=== PATIENT | female | born 1955 | race Caucasian/White ===

== ENCOUNTER 2019-05-24 09:57 | Emergency (ER) | payer OTHER ==
--- OUTSIDE RECORDS SUMMARY | 2019-05-24 10:04 | XMS REPORT ---
:1955 [facility] Address [address] [place] [address] Care Team Providers Name Role Phone VELIA ROBB Unavailable Unavailable JOE JOSHI Unavailable Unavailable BECKY LU Unavailable Unavailable DENNIS MOLINA Unavailable Unavailable FAM MEADOWS Unavailable Unavailable Problems This patient has no known problems. Allergies, Adverse Reactions, Alerts This patient has no known allergies or adverse reactions. Medications This patient has no known medications. Results Test Description Test Time Test Comments Text Results Atomic Results Result Comments CT, 2019-04-15 Referring: Dr. Najma Amos be FINAL REPORT PATIENT ID: ABDOMEN, 19:39:00 performed at [facility] [id number] TECHNIQUE: CT of [facility] in CT the abdomen WITHOUT CONTRAST department.Anesthesia:->NonePlease intravenous contrast and specify abdominal organs:->Liver WITHOUT oral contrast. Dose modulation, iterative reconstruction, and/or weight-based adjustment of the mA/kV was utilized to reduce the radiation dose to as low as reasonably achievable. INDICATION: Liver mets, presurgical assessment. COMPARISON: MRI from 02/11/2019. FINDINGS: ABSENCE OF INTRAVENOUS CONTRAST DECREASES SENSITIVITY FOR DETECTION OF FOCAL LESIONS AND VASCULAR PATHOLOGY. LOWER THORAX: Unremarkable. HEPATOBILIARY: Nodular, cirrhotic liver. The liver masses were better evaluated on the prior MRI. When of the exophytic lesions in segment III measures 1.1 cm and may have mildly increased in size. A calcification in segment VIII measures 0.2 cm and is most likely a calcified granuloma. Multiple gallstones layering the gallbladder. No gallbladder distention or wall thickening.SPLEEN: 16.2 cm splenomegaly.PANCREAS: No focal masses or ductal dilatation. ADRENALS: No adrenal nodules.KIDNEYS/URETERS: No hydronephrosis or exophytic masses. Contrast in the renal collecting system. PERITONEUM/RETROPERITONEUM: No free air or fluid.LYMPH NODES: No lymphadenopathy. The prominent upper abdominal lymph nodes are nonspecific but likely reactive. A difficult to assess without intravenous contrast.VESSELS: Mild aortic calcification. GI TRACT: No distention or wall thickening. The appendix is normal. BONES AND SOFT TISSUES: Moderate degenerative disc changes at L5-S1. IMPRESSION: 1.The previously seen arterially enhancing liver lesions were better evaluated on the prior MRI. 2.Cirrhosis with moderate splenomegaly. 3.Cholelithiasis without acute cholecystitis. Signed: Trever Rivers MDReport Verified Date/Time: 04/15/2019 19:39:35 Reading Location: [facility] C013Y CT Body Reading Room [facility] 2019-04-15 Referring: Dr. Najma Dominguez FINAL REPORT PATIENT ID: EMBOLIZATI 16:59:00 TACEReason for [id number] Procedure: ON, Exam:->HCC,hcv,cirrhosis Transarterial EXTENSIVE chemoembolization of the - ARTERIAL liver. History: Liver cirrhosis, hepatitis C, hepatocellular carcinoma, multifocal, status post treatment the right lobe of the liver on August 30, 2018. Follow-up MRI on 02/11/2019 was discussed in the tumor board and showed active disease in the segment three and four of the liver. A TACE was recommended. 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 Bean Sorter: Alex Dickerson Modality: Sonography and fluoroscopy. DOSE REDUCTION: The examination was performed according to departmental dose-optimization program. Fluoro time: 23 minutes Radiation dose: 501.4 mGy Kerma-area. Number of images: 89 Sedation: Versed one mg and Fentanyl 100 mcg was given intravenously for conscious sedation. Vital signs were monitored throughout the procedure by a dedicated RN under direct supervision of Dr. Radford, and remained stable. Physician intra-service sedation time was 83 minutes. Anesthesia: Lidocaine local infiltration. Medicines: Ancef 1 g IV, Flagyl 500 mg IV, Zofran 8 mg IV Contrast medium: Isovue 300, 100 cc. Estimated blood loss: < 5 cc. Technique: A discussion of the risks, benefits, and alternatives was carried out with the patient. A written informed consent was obtained. The patient expressed understanding and agreed to proceed. A universal timeout was performed prior to starting the procedure. The procedure room personnel used personal protective equipment. The operators used sterile gowns and gloves. The patient was laid supine on the procedure table. The surgical site was prepped with chlorhexidine gluconate and draped in the standard sterile fashion. The right common femoral artery was localized using anatomic and ultrasonographic landmarks. The artery is patent. Pertinent ultrasound images were stored for documentation in the PACS. Using aseptic precautions, real-time ultrasonographic guidance, after local anesthesia and dermatotomy, the artery was accessed with a micropuncture device. Eventually a guide wire was placed using standard exchanges. Over the wire a 5 Malaysian vascular sheath was placed. The sheath was connected to a heparinized saline drip. Over the wire, a 5 Malaysian reverse curve catheter was placed. This was followed by selective catheterization of the following arteries: Superior mesenteric artery, celiac artery. This was followed by superselective catheterization of the following arteries: The middle hepatic artery, the left hepatic artery. The equipment used for selective catheterization was Sos two catheter and Bentson wire. The equipment used for superselective catheterization was Pro great catheter, fathom wire, Transend wire, Direxion catheter. At each catheterization and superselective catheterization, following test injection, a digital subtraction angiography run was performed. This was followed by superselective embolization of the left hepatic artery. The agent used for embolization was Oncozene 100 um diameter, 2 cc, loaded with doxorubicin 100 mg. The endpoint of embolization was near stasis. Approximately 100 % of the target dose was administered (100 mg of doxorubicin). At the end of the procedure the chemotherapy contaminated equipment was discarded using the standard institutional protocol. The access site was closed using Angio-Seal. The patient was then transferred to the post procedure area for recovery. The patient was discharged home in stable condition after at least four hours of observation Complications: None immediate. Findings:No accessory or replaced right hepatic artery from the superior mesenteric artery. Celiac artery has conventional anatomy. There is main portal vein that is patent with hepatopedal flow. There is no supply to the tumor from the middle hepatic artery. There is supply to the tumors from the left hepatic artery. The segmental arteries are tiny. The segment two is small. Therefore it was decided to perform lobar embolization of the left lobe of the liver from the left hepatic artery branch point. The endpoint was tumor devascularization with persistent forward flow in the segmental arteries. Impression: Successful transarterial chemoembolization of two tumors in left lobe of the liver. The agent used for chemoembolization is mentioned above. The administered dose is mentioned above. The endpoint is mentioned above. The patient was discharged home in stable condition. Follow-up imaging in 4-6 weeks as per the referring doctor. Thank you for the opportunity to assist in the care of your patient. Signed: Randy Radfordeport Verified Date/Time: 04/15/2019 16:59:24 Reading Location: [facility] P048 Angio Body Reading Room REHENSIVE METABOLIC PANEL 2019-04-15 09:22:00 Test Item Value Reference Range Comments TOTAL PROTEIN (BEAKER) (test 6.9 gm/dL 6.0-8.3 pnga=630) ALBUMIN (BEAKER) (test 3.7 g/dL 3.5-5.0 eggw=0972) ALKALINE PHOSPHATASE 97 U/L 40-150 (BEAKER) (test xxpv=770) BILIRUBIN TOTAL (BEAKER) 1.0 mg/dL 0.2-1.2 (test tsor=916) SODIUM (BEAKER) (test 136 meq/L 136-145 mufx=149) POTASSIUM (BEAKER) (test 3.8 meq/L 3.5-5.1 lphm=535) CHLORIDE (BEAKER) (test 105 meq/L 98-107 itdb=138) CO2 (BEAKER) (test dbsf=934) 23 meq/L 22-29 BLOOD UREA NITROGEN (BEAKER) 23 mg/dL 7-21 (test nszt=241) CREATININE (BEAKER) (test 0.94 mg/dL 0.57-1.25 dvbv=997) GLUCOSE RANDOM (BEAKER) 153 mg/dL 70-105 (test zfub=757) CALCIUM (BEAKER) (test 9.2 mg/dL 8.4-10.2 iwwx=996) AST (SGOT) (BEAKER) (test 20 U/L 5-34 ogsg=501) ALT (SGPT) (BEAKER) (test 16 U/L 6-55 awlp=770) EGFR (BEAKER) (test 60 mL/min/1.73 sq m ESTIMATED GFR IS NOT pwgj=4702) ACCURATE CREATININE CLEARANCE IN PREDICTING GLOMERULAR FILTRATION RATE. ESTIMATED GFR IS NOT APPLICABLE FOR DIALYSIS PATIENTS. Improvement Intern ID - AAMIR [id number] 09:06:00 Test Item Value Reference Range Comments PARTIAL THROMBOPLASTIN TIME (BEAKER) (test 31.1 seconds 22.5-36.0 tiqk=871) PROTHROMBIN [id number] 09:04:00 Test Item Value Reference Range Comments PROTIME (BEAKER) (test lloh=577) 14.8 seconds 11.9-14.2 INR (BEAKER) (test nenl=918) 1.2 <=5.9 Effective 08/04/2018: PT Reference Range ChangeNew: 11.9-14.2 Previous: 11.7- 14.7RECOMMENDED COUMADIN/WARFARIN INR THERAPY RANGESSTANDARD DOSE: 2.0-3.0 Includes: PROPHYLAXIS for venous thrombosis, systemic embolization; TREATMENT for venous thrombosis and/or pulmonary embolus.HIGH RISK: Target INR is2.5-3.5 for patients wiht mechanical heart valves.CBC W/PLT COUNT & AUTO [id number] 08:54:00 Test Item Value Reference Range Comments WHITE BLOOD CELL COUNT (BEAKER) (test qpan=902) 3.3 K/ L 3.5-10.5 RED BLOOD CELL COUNT (BEAKER) (test pdbp=056) 4.34 M/ L 3.93-5.22 HEMOGLOBIN (BEAKER) (test ddag=920) 11.0 GM/DL 11.2-15.7 HEMATOCRIT (BEAKER) (test vcwc=591) 34.5 % 34.1-44.9 MEAN CORPUSCULAR VOLUME (BEAKER) (test uuqp=388) 79.5 fL 79.4-94.8 MEAN CORPUSCULAR HEMOGLOBIN (BEAKER) (test 25.3 pg 25.6-32.2 ctby=642) MEAN CORPUSCULAR HEMOGLOBIN CONC (BEAKER) (test 31.9 GM/DL 32.2-35.5 gmns=233) RED CELL DISTRIBUTION WIDTH (BEAKER) (test 16.4 % 11.7-14.4 uyqu=445) PLATELET COUNT (BEAKER) (test ehvl=505) 81 K/CU MM 150-450 MEAN PLATELET VOLUME (BEAKER) (test qljd=981) 9.4 fL 9.4-12.3 NUCLEATED RED BLOOD CELLS (BEAKER) (test 0 /100 WBC 0-0 vfoc=995) NEUTROPHILS RELATIVE PERCENT (BEAKER) (test 75 % fotd=584) LYMPHOCYTES RELATIVE PERCENT (BEAKER) (test 16 % lnxa=074) MONOCYTES RELATIVE PERCENT (BEAKER) (test 8 % hcar=437) EOSINOPHILS RELATIVE PERCENT (BEAKER) (test 1 % anlq=052) BASOPHILS RELATIVE PERCENT (BEAKER) (test 0 % kopu=323) NEUTROPHILS ABSOLUTE COUNT (BEAKER) (test 2.44 K/ L 1.56-6.13 csrt=757) LYMPHOCYTES ABSOLUTE COUNT (BEAKER) (test 0.52 K/ L 1.18-3.74 ktow=958) MONOCYTES ABSOLUTE COUNT (BEAKER) (test oeat=332) 0.27 K/ L 0.24-0.36 EOSINOPHILS ABSOLUTE COUNT (BEAKER) (test 0.02 K/ L 0.04-0.36 hopz=473) BASOPHILS ABSOLUTE COUNT (BEAKER) (test ryki=491) 0.01 K/ L 0.01-0.08 IMMATURE GRANULOCYTES-RELATIVE PERCENT (BEAKER) 0 % 0-1 (test rcar=1909) CT, CHEST, WITHOUT [id number] 15:05:00Referring: Dr. Najma Underwood REPORT TECHNIQUE: CT of the chest WITHOUT intravenous contrast. Dose modulation, iterative reconstruction, and/or weight-based adjustment of the mA/kV was utilized to reduce the radiation dose to as low as reasonably achievable. INDICATION: 63-year-old woman with hepatocellular carcinoma. COMPARISON: Chest CT 11/05/2018. FINDINGS: ABSENCE OF INTRAVENOUS CONTRAST DECREASES SENSITIVITY FOR DETECTION OF FOCAL LESIONS AND VASCULAR PATHOLOGY. LINES/TUBES: None. LUNGS AND AIRWAYS: Central airways are patent. No consolidation or suspicious pulmonary nodule. Unchanged subpleural subcentimeter calcified granuloma in the right upper lobe. PLEURA: The pleural spaces are clear. HEART AND MEDIASTINUM: The visualized thyroid gland is normal. No significant mediastinal, hilar, or axillary lymphadenopathy. The heart and pericardium are within normal limits. SOFT TISSUES AND BONES: Degenerative changes of the visualized spine. Soft tissues are unremarkable. UPPER ABDOMEN: Cirrhosiswith splenomegaly. Cholelithiasis. Please refer to abdomen MRI report from 02/11/2019 for further details. IMPRESSION:No metastases in the chest. Signed: Lucho Case MDReport Verified Date/Time: 02/23/2019 15:05:09 Reading Location: [address] Radiology Reading Room MR, ABDOMEN, [id number] 15:59:00Referring: Dr. Najma Robledo Abdominal VesselsFINAL REPORT MRI of the abdomen, with and without contrast. History: C, cirrhosis. Comparison: 11/05/2018, 07/16/2018. Technique: Multiplanar, multisequence imaging of the abdomenwas performed pre- and post-IV administration of gadolinium. Dynamic enhanced images of the liver were included. Discussion: The liver has a nodular contour with several arterially enhancing lesions:- Segment 5 lesion, 0.7 cm, previously chemoembolized, no washout or pseudocapsule, unchanged.- Segment4 lesion, 1.8 cm, with washout and pseudocapsule, unchanged.- Segment 8 lesion, 1.2 cm, no washout or pseudocapsule , unchanged.- Segment 3 lesion, 0.9 cm, no washout or pseudocapsule, unchanged. - Segment 5 lesion, 0.8 cm, no washout or pseudocapsule, unchanged.- Segment 8 lesion, 0.7 cm, no washout orpseudocapsule, not previously seen. The hepatic, splenic, portal, and mesenteric veins are patent. The portal vein is normal in size measuring 16 mm in diameter. There is no evidence of ascites. Multiple small stones are present within the gallbladder. The spleen is enlarged measuring over 17 cm inlength. The pancreas, kidneys and adrenal glands are unremarkable. The visualized loops of bowel andosseous structures are normal. There is no evidence of adenopathy. IMPRESSION: 1. Cirrhotic liverwith stable segment 5 previously treated HCC and stable segment 4 HCC. Additional lesions as described above.2. Splenomegaly and portal vein enlargement are again noted.3. Cholelithiasis. Signed: Reynold Rose MDReport Verified Date/ Time: 02/11/2019 15:59:27 Reading Location: [address] RadiologyReading Room BONE AND/OR JOINT IMAGING, WHOLE [id number] 14:35:00Referring: Dr. Najma Underwood REPORT PROCEDURE: BONE SCAN, WHOLE BODY CPT CODE: 42030 INDICATION: Hepatocellular carcinoma PROTOCOL: 21.4 mCi of Tc-99m MDP was injected intravenously. Whole body and selected spot images were obtained approximately 3 hours later. FINDINGS: Mildly increased tracer activity in the calvarium, right greater than left shoulder, cervical and lower thoracic spine, hips, knees, and feet/ankles. IMPRESSION: 1.No pattern of osteoblastic metastatic disease.2.Degenerative disease in the spine and peripheral joints.3.No significant change since prior studyon 06/02/2018. Images for comparison/correlation were MR abdomen and CT chest on 11/05/2018. Signed: Aniceto Dove MDReport Verified Date/Time: 02/11/2019 14:35:45 Reading Location: [address] Reading Room ALPHA FETOPROTEIN (AFP), TUMOR [id number] 11:40:00 Test Item Value Reference Range Comments ALPHA-FETOPROTEIN (BEAKER) (test lsox=1839) 6.8 ng/mL <10.0 HEPATIC FUNCTION [id number] 11:01:00 Test Item Value Reference Range Comments TOTAL PROTEIN (BEAKER) (test cedp=026) 7.1 gm/dL 6.0-8.3 ALBUMIN (BEAKER) (test sojm=3702) 3.7 g/dL 3.5-5.0 BILIRUBIN TOTAL (BEAKER) (test ziim=084) 0.8 mg/dL 0.2-1.2 BILIRUBIN DIRECT (BEAKER) (test jziz=652) 0.4 mg/dL 0.1-0.5 ALKALINE PHOSPHATASE (BEAKER) (test lotj=333) 126 U/L 40-150 AST (SGOT) (BEAKER) (test hrxu=613) 21 U/L 5-34 ALT (SGPT) (BEAKER) (test tfae=746) 17 U/L 6-55 BASIC METABOLIC [id number] 11:01:00 Test Item Value Reference Range Comments SODIUM (BEAKER) (test 138 meq/L 136-145 adjh=237) POTASSIUM (BEAKER) (test 4.4 meq/L 3.5-5.1 cclb=004) CHLORIDE (BEAKER) (test 102 meq/L 98-107 xjho=609) CO2 (BEAKER) (test 31 meq/L 22-29 zooj=368) BLOOD UREA NITROGEN 16 mg/dL 7-21 (BEAKER) (test petm=111) CREATININE (BEAKER) (test 0.79 mg/dL 0.57-1.25 zjye=619) GLUCOSE RANDOM (BEAKER) 149 mg/dL 70-105 (test qqcp=195) CALCIUM (BEAKER) (test 9.2 mg/dL 8.4-10.2 znzn=606) EGFR (BEAKER) (test 73 mL/min/1.73 sq m ESTIMATED GFR IS NOT dlzc=7410) ACCURATE CREATININE CLEARANCE IN PREDICTING GLOMERULAR FILTRATION RATE. ESTIMATED GFR IS NOT APPLICABLE FOR DIALYSIS PATIENTS. [id number] 10:54:00 Test Item Value Reference Range Comments POC-CREATININE (BEAKER) 0.7 mg/dL 0.6-1.3 TESTED AT [facility] [address] [facility] (test dbsu=5874) [facility] [address] POC-EGFR (BEAKER) (test 84 mL/min/1.73M2 uvmf=9886) CBC W/PLT COUNT & AUTO [id number] 10:47:00 Test Item Value Reference Range Comments WHITE BLOOD CELL COUNT (BEAKER) (test mxqr=259) 4.6 K/ L 3.5-10.5 RED BLOOD CELL COUNT (BEAKER) (test pvmf=810) 4.22 M/ L 3.93-5.22 HEMOGLOBIN (BEAKER) (test swxq=838) 10.4 GM/DL 11.2-15.7 HEMATOCRIT (BEAKER) (test vzwr=611) 34.1 % 34.1-44.9 MEAN CORPUSCULAR VOLUME (BEAKER) (test ktuf=676) 80.8 fL 79.4-94.8 MEAN CORPUSCULAR HEMOGLOBIN (BEAKER) (test 24.6 pg 25.6-32.2 elxe=142) MEAN CORPUSCULAR HEMOGLOBIN CONC (BEAKER) (test 30.5 GM/DL 32.2-35.5 qjbf=284) RED CELL DISTRIBUTION WIDTH (BEAKER) (test 15.2 % 11.7-14.4 nzln=029) PLATELET COUNT (BEAKER) (test sqww=676) 83 K/CU MM 150-450 MEAN PLATELET VOLUME (BEAKER) (test ftag=883) 10.4 fL 9.4-12.3 NUCLEATED RED BLOOD CELLS (BEAKER) (test 0 /100 WBC 0-0 fcnc=053) NEUTROPHILS RELATIVE PERCENT (BEAKER) (test 81 % qjrc=343) LYMPHOCYTES RELATIVE PERCENT (BEAKER) (test 11 % qvpf=510) MONOCYTES RELATIVE PERCENT (BEAKER) (test 7 % emeb=462) EOSINOPHILS RELATIVE PERCENT (BEAKER) (test 1 % ikth=635) BASOPHILS RELATIVE PERCENT (BEAKER) (test 0 % kzhj=744) NEUTROPHILS ABSOLUTE COUNT (BEAKER) (test 3.69 K/ L 1.56-6.13 nhfr=051) LYMPHOCYTES ABSOLUTE COUNT (BEAKER) (test 0.51 K/ L 1.18-3.74 fzou=090) MONOCYTES ABSOLUTE COUNT (BEAKER) (test ovjb=527) 0.30 K/ L 0.24-0.36 EOSINOPHILS ABSOLUTE COUNT (BEAKER) (test 0.04 K/ L 0.04-0.36 bqfb=657) BASOPHILS ABSOLUTE COUNT (BEAKER) (test efdc=058) 0.02 K/ L 0.01-0.08 IMMATURE GRANULOCYTES-RELATIVE PERCENT (BEAKER) 0 % 0-1 (test ilie=9592) PROTHROMBIN [id number] 10:42:00 Test Item Value Reference Range Comments PROTIME (BEAKER) (test inij=285) 14.1 seconds 11.9-14.2 INR (BEAKER) (test qenf=606) 1.1 <=5.9 Effective 08/04/2018: PT Reference Range ChangeNew: 11.9-14.2 Previous: 11.7- 14.7RECOMMENDED COUMADIN/WARFARIN INR THERAPY RANGESSTANDARD DOSE: 2.0-3.0 Includes: PROPHYLAXIS for venous thrombosis, systemic embolization; TREATMENT for venous thrombosis and/or pulmonary embolus.HIGH RISK: Target INR is2.5-3.5 for patients wiht mechanical heart valves.TISSUE [id number] 11:15: 00Surgical Pathology Report Case: [id number] Authorizing Provider: Joe Joshi Collected : 01/06/2019 Ruby Patel MD [facility]ingLocation: [facility] Endoscopy Received: 01/07/2019 0815 Services Pathologist: Sheila Hamilton MD Specimen: Polyp, Colon - Rectosigmoid, TAKEN BY ESD, ON FOAM, EVALUATE MARGINS A. 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 CM - NEGATIVE FOR HIGH-GRADE DYSPLASIA/ MALIGNANCY - MARGINS, FREE OF ADENOMATOUS EPITHELIUM Signing Pathologist Direct Phone Line: [phone] signed by Sheila Hamilton MD on 01/12/2019 at 11:15 [id number] polyp of sigmoid colon Polyp, colon- rectosigmoid, taken by ESD, on foam, evaluate marginsReceived in formalin labeled with the patient's name, accession number and "polyp, colon-rectosigmoid " is a 3.9 x 3.1 x 0.1 cm irregular portion of red-pink mucosa pinned to a piece of styrofoam. The surface of the mucosa displays an ill-defined, pink- maroon, raised Polyp measuring 2.0 x 1.7 x 0.3 cm. The polyp is 0.2 cm from the radial margin and abuts the deep margin. The specimen is serially sectioned and entirely submitted sequentially, one cross section in each cassette, in A1- A22, polyp in A2-A15.Ink code: Blue-radial margin, black-deep margin.CG/ew Performed.POCT-GLUCOSE [id number] 11:46:00 Test Item Value Reference Range Comments POC-GLUCOSE METER (BEAKER) 129 mg/dL 70-110 : TESTED AT [facility] [address] (test mmeg=2788) [facility], [address]: Improvement Intern/Tip Cutter CM=[id number] for YOAANYOHANSHEEBA ALPHA FETOPROTEIN (AFP), TUMOR [id number] 12:27:00 Test Item Value Reference Range Comments ALPHA-FETOPROTEIN (BEAKER) (test vjcb=8888) 4.9 ng/mL <10.0 CT, CHEST, WITHOUT [id number] 12:02:00Referring: Dr. Najma BroderickFINMINA REPORT TECHNIQUE: CT scan of the chest WITHOUT intravenous contrast. Dose modulation, iterative reconstruction, and/or weight- based adjustment of the mA/kV was utilized to reduce the radiation dose to as low as reasonably achievable. INDICATION: HCC,HCV,CIRRHOSIS. COMPARISON: Chest CT from 06/02/2018. FINDINGS: ABSENCE OF INTRAVENOUS CONTRAST DECREASES SENSITIVITY FOR DETECTION OF FOCAL LESIONS AND VASCULAR PATHOLOGY. LINES/TUBES: None. LUNGS AND AIRWAYS: A right apicalcalcified measures 0.2 cm. Otherwise, the lungs are clear. PLEURA: The pleural spaces are clear. HEART AND MEDIASTINUM : A right thyroid nodule measures 1.2 cm and is likely clinically insignificant. Nofurther imaging is recommended. No significant mediastinal, hilar, or axillary lymphadenopathy. The left atrium is enlarged. Mild calcification of the left anterior descending coronary artery. SOFT TISSUES AND BONES: Moderate degenerative changes of the glenohumeral joints. UPPER ABDOMEN: The upper abdomen will be better evaluated on the MRI performed earlier today. IMPRESSION: No metastatic diseasein the chest. Signed: Trever Rivers MDReport Verified Date/Time: 11/05/2018 12:02:36 Reading Location:[address] Radiology Reading Room Electronically signed by: TREVER RIVERS MD on 12:02 PMMR, ABDOMEN, [id number] 11:38:00Referring: Dr. Najma Robledo Abdominal VesselsFINAL REPORT TECHNIQUE: MRI of the abdomen WITHOUT and WITH intravenous contrast. INDICATION: HCC,HCV, CIRRHOSIS. COMPARISON: MR from 07/16/2018. FINDINGS: LOWER THORAX: Unremarkable. LIVER: Nodular, cirrhotic liver. Liver lesions as follow:* Interval chemoembolization of a segment V liver lesion a residual area of nodular enhancement which measures 0.7 cm on series 12 image 68. No definite washout or pseudocapsule formation. This previously measured 1.6 cm.*An arterially enhancing lesion in segment IV with arterial enhancement, washout, and pseudocapsule formation measures 1.8cm on series 17 image 77, unchanged.*An arterially enhancing lesion in segment VIII is now mostly peripherally enhancing and measures 1.3 cm on series 12 image 26, unchanged. No washout or pseudocapsule formation.*An arterially enhancing lesion in segment VII measures 1 cm on series 12 image 29, unchanged. No washout or pseudocapsule formation.* Faint area of arterial phase hyperenhancement in segmentVII measures 1 cm on series 12 image 29, not previously seen. No washout or pseudocapsule formation.* An arterially enhancing lesion in segment V on series 12 image 62 measures 0.9 cm, previously 0.8 cm. No washout or pseudocapsule formation.*A segment III lesion on series 12 image 61 measures 1.8 cm, previously 1.2 cm. No washout or pseudocapsule formation.*An arterially enhancing lesion in segment VIII on series 12 image 33 measures 0.5 cm, not previously visualized. No washout or pseudocapsule formation.*An arterially enhancing lesion in segment VIII on series 12 image 35 measures 0.6 cm, unchanged. No washout or pseudocapsule formation. BILIARY: Innumerable tiny gallstones layering the gallbladder. No biliary ductal dilatation or filling defect.SPLEEN: 16.7 cm splenomegaly.PANCREAS: No focal masses or ductal dilatation. A question of cystic lesion in the uncinate process measures 0.7 cm on series 4 image 12 and is unchanged. ADRENALS: No adrenal nodules.KIDNEYS/URETERS: No hydronephrosis or solid mass lesions. PERITONEUM/RETROPERITONEUM: Trace free fluid in the pelvis.LYMPH NODES: No lymphadenopathy.VESSELS: Retroaortic left renal vein. GI TRACT: No distention or wall thickening. BONES ANDSOFT TISSUES: Unremarkable. IMPRESSION: 1.Interval chemoembolization of a segment V liver lesion. There is 0.7 cm of residual, nodular enhancement which is concerning for residual tumor. No definite washout. Close attention follow-up imaging is recommended. 2.A segment IV focus of hepatocellular carcinoma measures 1.8 cm, unchanged. 3.Several additional arterially hyperenhancing lesions have increased in size and many others are unchanged. No washout or pseudocapsule formation. These are indeterminate, and close attention on follow-up imaging is recommended. 4.Cholelithiasis without acute cholecystitis. 5.A cystic lesion in the uncinate process measures 0.7 cm and is unchanged. This is most consistent with a small, sidebranch intraductal papillary mucinous neoplasm. 6.Cirrhosis with splenomegaly. Signed: Horn, Trever MDReport Verified Date/Time: 11/05/2018 11:38: 54 Reading Location: [address] Radiology Reading Room [id number] 10:06:00 Test Item Value Reference Range Comments POC-CREATININE (BEAKER) 0.7 mg/dL 0.6-1.3 TESTED AT [facility] [address] [facility] (test mtvn=3164) [facility] [address] POC-EGFR (BEAKER) (test 84 mL/min/1.73M2 hguh=8763) HEPATIC FUNCTION [id number] 10:00:00 Test Item Value Reference Range Comments TOTAL PROTEIN (BEAKER) (test apvy=080) 6.7 gm/dL 6.0-8.3 ALBUMIN (BEAKER) (test migi=8189) 3.5 g/dL 3.5-5.0 BILIRUBIN TOTAL (BEAKER) (test wvav=251) 0.7 mg/dL 0.2-1.2 BILIRUBIN DIRECT (BEAKER) (test zrhh=541) 0.4 mg/dL 0.1-0.5 ALKALINE PHOSPHATASE (BEAKER) (test kdjp=381) 120 U/L 40-150 AST (SGOT) (BEAKER) (test flgb=298) 21 U/L 5-34 ALT (SGPT) (BEAKER) (test wynp=516) 16 U/L 6-55 BASIC METABOLIC [id number] 10:00:00 Test Item Value Reference Range Comments SODIUM (BEAKER) (test 139 meq/L 136-145 cpac=751) POTASSIUM (BEAKER) (test 4.2 meq/L 3.5-5.1 diul=777) CHLORIDE (BEAKER) (test 104 meq/L 98-107 biwp=760) CO2 (BEAKER) (test 30 meq/L 22-29 yznf=650) BLOOD UREA NITROGEN 15 mg/dL 7-21 (BEAKER) (test yipp=934) CREATININE (BEAKER) (test 0.79 mg/dL 0.57-1.25 zfig=278) GLUCOSE RANDOM (BEAKER) 131 mg/dL 70-105 (test pzrc=546) CALCIUM (BEAKER) (test 9.0 mg/dL 8.4-10.2 wuek=814) EGFR (BEAKER) (test 73 mL/min/1.73 sq m ESTIMATED GFR IS NOT nqyw=1254) ACCURATE CREATININE CLEARANCE IN PREDICTING GLOMERULAR FILTRATION RATE. ESTIMATED GFR IS NOT APPLICABLE FOR DIALYSIS PATIENTS. PROTHROMBIN TIME/[id number] 09:49:00 Test Item Value Reference Range Comments PROTIME (BEAKER) (test gabt=361) 14.1 seconds 11.9-14.2 INR (BEAKER) (test myik=318) 1.2 <=5.9 Effective 08/04/2018: PT Reference Range ChangeNew: 11.9-14.2 Previous: 11.7- 14.7RECOMMENDED COUMADIN/WARFARIN INR THERAPY RANGESSTANDARD DOSE: 2.0-3.0 Includes: PROPHYLAXIS for venous thrombosis, systemic embolization; TREATMENT for venous thrombosis and/or pulmonary embolus.HIGH RISK: Target INR is2.5-3.5 for patients wiht mechanical heart valves.CBC W/PLT COUNT & AUTO [id number] 09:40:00 Test Item Value Reference Range Comments WHITE BLOOD CELL COUNT (BEAKER) (test brdp=430) 3.9 K/ L 3.5-10.5 RED BLOOD CELL COUNT (BEAKER) (test spop=381) 3.98 M/ L 3.93-5.22 HEMOGLOBIN (BEAKER) (test xvor=913) 10.1 GM/DL 11.2-15.7 HEMATOCRIT (BEAKER) (test bock=175) 33.0 % 34.1-44.9 MEAN CORPUSCULAR VOLUME (BEAKER) (test qoml=603) 82.9 fL 79.4-94.8 MEAN CORPUSCULAR HEMOGLOBIN (BEAKER) (test 25.4 pg 25.6-32.2 sgux=691) MEAN CORPUSCULAR HEMOGLOBIN CONC (BEAKER) (test 30.6 GM/DL 32.2-35.5 xdcv=509) RED CELL DISTRIBUTION WIDTH (BEAKER) (test 13.7 % 11.7-14.4 ptke=489) PLATELET COUNT (BEAKER) (test xjwk=199) 79 K/CU MM 150-450 MEAN PLATELET VOLUME (BEAKER) (test ayun=146) 10.1 fL 9.4-12.3 NUCLEATED RED BLOOD CELLS (BEAKER) (test 0 /100 WBC 0-0 dcib=380) NEUTROPHILS RELATIVE PERCENT (BEAKER) (test 81 % qogg=465) LYMPHOCYTES RELATIVE PERCENT (BEAKER) (test 11 % drxr=877) MONOCYTES RELATIVE PERCENT (BEAKER) (test 6 % awzo=105) EOSINOPHILS RELATIVE PERCENT (BEAKER) (test 1 % zaup=278) BASOPHILS RELATIVE PERCENT (BEAKER) (test 0 % ykbe=740) NEUTROPHILS ABSOLUTE COUNT (BEAKER) (test 3.19 K/ L 1.56-6.13 zrvp=039) LYMPHOCYTES ABSOLUTE COUNT (BEAKER) (test 0.44 K/ L 1.18-3.74 ycyc=042) MONOCYTES ABSOLUTE COUNT (BEAKER) (test hptg=378) 0.25 K/ L 0.24-0.36 EOSINOPHILS ABSOLUTE COUNT (BEAKER) (test 0.02 K/ L 0.04-0.36 qoga=825) BASOPHILS ABSOLUTE COUNT (BEAKER) (test bjkd=861) 0.01 K/ L 0.01-0.08 IMMATURE GRANULOCYTES-RELATIVE PERCENT (BEAKER) 0 % 0-1 (test uphy=3381) ANG, EMBOLIZATION, EXTENSIVE - [id number] 17:43:00Referring: Dr. Najma Dominguez TACEReason for Exam:->HCC,HCV,CIRRHOSISFINAL REPORT Mesenteric Arteriography and Transarterial Chemoembolization ofthe Liver (TACE) Clinical History: Hypervascular Liver Mass(es) presumed Hepatocellular Carcinoma(s) The patient is a liver transplant candidate. There is no evidence of extrahepatic disease. There is no evidence of vascular invasion. Comparison: Prior MRIImages presented: 89Conscious Sedation: Versed 1.5 mg and fentanyl 100 mcg intravenously Cardiopulmonary monitoring was performed by the attending radiologist and the radiology nurse. Monitoring was performed with pulse oximetry, blood pressuremeasurements and ECG tracings.Physician Patient Time: 40 minutesModality: Fluoroscopy.Anesthesia: 2% lidocaine without epinephrineApproach: Right common femoral arteryCatheter positioned: Celiac axis and super selectively in the right hepatic arteryContrast: Visipaque 270 80 ccEstimated Blood Loss: less than 10 ccFluoro time (in minutes): 7.3 minutes.89 images Technique:After informed consent was obtained, the patient was prepped and draped in a sterile manner. Access was obtained via a percutaneous right common femoral arterial approach. An 18 gauge needle was placed into the artery and a .035 inch guide wire was advanced. A 5 Malaysian sheath was utilized. A 5 tongan Alfredo catheter was placed selectively into the celiac axis. A 3 Malaysian microcatheter was super selectively advanced coaxially into the right hepatic artery. Five DSA runs were performed. Celiac Arteriography:Type I anatomy was visualized. There is no evidence of hemodynamically significant stenosis aneurysm or AV malformation..Right Hepatic Artery:Superselective catheterization of the right hepatic artery documents tiny vessel supplying a peripheral less than 2 cm lesion. There is no evidence of AV malformation or nt portalshunting. A microcatheter was super selectively placed into the right hepatic artery. Chemoembolization was performed with 75 mg of doxorubicin loaded into LC beads There was no evidence of arterial portal shunting through the tumor. Post procedure arteriogram:No significant blush was visualized in the peripheral lesion The patient tolerated the procedure well and left the department in the same condition. Hemostasis was achieved by a vascular closure device. At the end of the procedure, the femoral sheath was withdrawn. Local hemostasis was achieved utilizing manual compression and the deployment of the Mynx device. A femoral arteriogram was to evaluate the lumen of the commonfemoral artery as well as the origin of the femoral profunda artery. The patient tolerated the procedure well without complication. Impression: Successful, uncomplicated transarterial chemoembolization of a peripheral right hepatic lobe lesion segment five performed with conscious sedation. A smallerlesion was described in segment four or five which was not visualized. Signed: Maritza Santana MDReportVerified Date/Time: 08/30/2018 17:43:13 Reading Location: [place] [id number] Angio Body Reading Room COMPREHENSIVE METABOLIC [id number] 11:13:00 Test Item Value Reference Range Comments TOTAL PROTEIN (BEAKER) 7.2 gm/dL 6.0-8.3 (test fjdc=970) ALBUMIN (BEAKER) (test 3.8 g/dL 3.5-5.0 umot=8177) ALKALINE PHOSPHATASE 110 U/L 40-150 (BEAKER) (test xqnf=042) BILIRUBIN TOTAL (BEAKER) 1.0 mg/dL 0.2-1.2 (test mvou=442) SODIUM (BEAKER) (test 135 meq/L 136-145 wefq=958) POTASSIUM (BEAKER) (test 4.1 meq/L 3.5-5.1 gqgv=507) CHLORIDE (BEAKER) (test 100 meq/L 98-107 srgg=150) CO2 (BEAKER) (test 28 meq/L 22-29 rses=290) BLOOD UREA NITROGEN 19 mg/dL 7-21 (BEAKER) (test shnq=983) CREATININE (BEAKER) (test 0.83 mg/dL 0.57-1.25 bsub=680) GLUCOSE RANDOM (BEAKER) 154 mg/dL 70-105 (test ghik=190) CALCIUM (BEAKER) (test 9.1 mg/dL 8.4-10.2 ffld=145) AST (SGOT) (BEAKER) (test 20 U/L 5-34 csnw=499) ALT (SGPT) (BEAKER) (test 14 U/L 6-55 lwmz=043) EGFR (BEAKER) (test 69 mL/min/1.73 sq m ESTIMATED GFR IS NOT jdie=8708) ACCURATE CREATININE CLEARANCE IN PREDICTING GLOMERULAR FILTRATION RATE. ESTIMATED GFR IS NOT APPLICABLE FOR DIALYSIS PATIENTS. BILIRUBIN, [id number] 11:13:00 Test Item Value Reference Range Comments BILIRUBIN DIRECT (BEAKER) (test brab=104) 0.4 mg/dL 0.1-0.5 [id number] 11:07:00 Test Item Value Reference Range Comments PARTIAL THROMBOPLASTIN TIME (BEAKER) (test 32.1 seconds 22.5-36.0 ltpq=117) PROTHROMBIN [id number] 11:06:00 Test Item Value Reference Range Comments PROTIME (BEAKER) (test yviz=789) 14.2 seconds 11.9-14.2 INR (BEAKER) (test rksc=589) 1.2 <=5.9 Effective 08/04/2018: PT Reference Range ChangeNew: 11.9-14.2 Previous: 11.7- 14.7RECOMMENDED COUMADIN/WARFARIN INR THERAPY RANGESSTANDARD DOSE: 2.0-3.0 Includes: PROPHYLAXIS for venous thrombosis, systemic embolization; TREATMENT for venous thrombosis and/or pulmonary embolus.HIGH RISK: Target INR is2.5-3.5 for patients wiht mechanical heart valves.CBC W/PLT COUNT & AUTO [id number] 10:54:00 Test Item Value Reference Range Comments WHITE BLOOD CELL COUNT (BEAKER) (test ehpm=606) 4.2 K/ L 3.5-10.5 RED BLOOD CELL COUNT (BEAKER) (test wxlp=478) 4.06 M/ L 3.93-5.22 HEMOGLOBIN (BEAKER) (test rahz=074) 10.5 GM/DL 11.2-15.7 HEMATOCRIT (BEAKER) (test zvjr=544) 33.5 % 34.1-44.9 MEAN CORPUSCULAR VOLUME (BEAKER) (test mdrj=338) 82.5 fL 79.4-94.8 MEAN CORPUSCULAR HEMOGLOBIN (BEAKER) (test 25.9 pg 25.6-32.2 iwcw=583) MEAN CORPUSCULAR HEMOGLOBIN CONC (BEAKER) (test 31.3 GM/DL 32.2-35.5 uwlq=098) RED CELL DISTRIBUTION WIDTH (BEAKER) (test 14.5 % 11.7-14.4 vrzc=948) PLATELET COUNT (BEAKER) (test fvfv=255) 105 K/CU MM 150-450 MEAN PLATELET VOLUME (BEAKER) (test augr=517) 10.3 fL 9.4-12.3 NUCLEATED RED BLOOD CELLS (BEAKER) (test 0 /100 WBC 0-0 qgnf=310) NEUTROPHILS RELATIVE PERCENT (BEAKER) (test 79 % anre=201) LYMPHOCYTES RELATIVE PERCENT (BEAKER) (test 12 % iqpf=845) MONOCYTES RELATIVE PERCENT (BEAKER) (test 7 % omnt=173) EOSINOPHILS RELATIVE PERCENT (BEAKER) (test 1 % kmlq=497) BASOPHILS RELATIVE PERCENT (BEAKER) (test 1 % oklg=427) NEUTROPHILS ABSOLUTE COUNT (BEAKER) (test 3.32 K/ L 1.56-6.13 vzpi=348) LYMPHOCYTES ABSOLUTE COUNT (BEAKER) (test 0.49 K/ L 1.18-3.74 tnfr=398) MONOCYTES ABSOLUTE COUNT (BEAKER) (test 0.30 K/ L 0.24-0.36 orjs=580) EOSINOPHILS ABSOLUTE COUNT (BEAKER) (test 0.03 K/ L 0.04-0.36 lgvp=316) BASOPHILS ABSOLUTE COUNT (BEAKER) (test 0.02 K/ L 0.01-0.08 qgxz=227) IMMATURE GRANULOCYTES-RELATIVE PERCENT (BEAKER) 1 % 0-1 (test enhh=9511) MR, ABDOMEN, [id number] 10:23:00Referring: Dr. Najma Robledo Abdominal VesselsFINAL REPORT INDICATION:Cirrhosis, hepatitis C, hepatocellular carcinoma. COMPARISON: March 11, 2018 TECHNIQUE: MR of the Abdomen WITHOUT and WITH intravenous contrast. FINDINGS:Liver and irregular contour and anterior segment atrophy is in keeping with cirrhosis. Segment IV/V previously demonstrated arterially enhancing lesion with washout is unchanged in size measuring 1.6 x1.4 cm. No definite corresponding T2 signal abnormality or pseudocapsule. Segment V previously demonstrated arterially enhancing lesion with washout has increased in size now measuring 1.6 x 1.4 cm previously measuring 1.0 x 1.0 cm. No definite corresponding T2 signal abnormality. There is suggestion of a pseudocapsule on delayed phase. Few scattered smaller arterially enhancing foci are unchanged, the largest in the hepatic dome and measuring 1.3 x 1.1 cm. No new suspicious hepatic lesion is demonstrated. Hepatic vasculature is patent. Main portal vein measures 1.4 cm in diameter. Spleen is enlarged measuring 16 cm coronal long axis. Minimal ascites. Sludge versus many tiny stones fill approximately one third of the gallbladder. No biliary ductal dilatation. No upper abdominal lymphadenopathy. Pancreas, adrenal glands, kidneys, and visualized bowel loops are unremarkable. IMPRESSION :Cirrhosis with two arterial enhancing lesions with washout, one has increased in size since March 2018 the other is stable in size. Both are suspicious for hepatocellular carcinoma. Signed: Andre Mancera MDReport Verified Date/Time: 07/16/2018 10:23:16 Reading Location: [address] Reading Room HEPATITIS A ANTIBODY, [id number] 08:32:00 Test Item Value Reference Range Comments HEPATITIS A IGM ANTIBODY (BEAKER) (test Nonreactive Nonreactive ojrj=197) ALPHA FETOPROTEIN (AFP), TUMOR [id number] 08:27:00 Test Item Value Reference Range Comments ALPHA-FETOPROTEIN (BEAKER) (test opsr=8793) 14.2 ng/mL <10.0 HEPATITIS A ANTIBODY, [id number] 08:27:00 Test Item Value Reference Range Comments HEPATITIS A IGG ANTIBODY (BEAKER) (test Nonreactive Nonreactive vwpk=0601) HEPATIC FUNCTION [id number] 08:08:00 Test Item Value Reference Range Comments TOTAL PROTEIN (BEAKER) (test grsv=358) 6.5 gm/dL 6.0-8.3 ALBUMIN (BEAKER) (test gbsl=9734) 3.4 g/dL 3.5-5.0 BILIRUBIN TOTAL (BEAKER) (test vxrw=671) 0.5 mg/dL 0.2-1.2 BILIRUBIN DIRECT (BEAKER) (test xomp=918) 0.2 mg/dL 0.1-0.5 ALKALINE PHOSPHATASE (BEAKER) (test jdjx=311) 113 U/L 40-150 AST (SGOT) (BEAKER) (test exou=737) 21 U/L 5-34 ALT (SGPT) (BEAKER) (test vgxc=450) 18 U/L 6-55 BASIC METABOLIC [id number] 08:08:00 Test Item Value Reference Range Comments SODIUM (BEAKER) (test 140 meq/L 136-145 sagh=153) POTASSIUM (BEAKER) (test 4.4 meq/L 3.5-5.1 zolz=923) CHLORIDE (BEAKER) (test 106 meq/L 98-107 jocd=716) CO2 (BEAKER) (test 27 meq/L 22-29 tcho=823) BLOOD UREA NITROGEN 18 mg/dL 7-21 (BEAKER) (test bhtl=872) CREATININE (BEAKER) (test 0.76 mg/dL 0.57-1.25 djeq=465) GLUCOSE RANDOM (BEAKER) 153 mg/dL 70-105 (test qhbc=672) CALCIUM (BEAKER) (test 9.2 mg/dL 8.4-10.2 narr=715) EGFR (BEAKER) (test 77 mL/min/1.73 sq m ESTIMATED GFR IS NOT egpf=3120) ACCURATE CREATININE CLEARANCE IN PREDICTING GLOMERULAR FILTRATION RATE. ESTIMATED GFR IS NOT APPLICABLE FOR DIALYSIS PATIENTS. PROTHROMBIN TIME/[id number] 08:02:00 Test Item Value Reference Range Comments PROTIME (BEAKER) (test bqul=549) 14.2 seconds 11.7-14.7 INR (BEAKER) (test zfuq=527) 1.1 <=5.9 RECOMMENDED COUMADIN/WARFARIN INR THERAPY RANGESSTANDARD DOSE: 2.0 - 3.0 Includes: PROPHYLAXIS forvenous thrombosis, systemic embolization; TREATMENT for venous thrombosis and/or pulmonary embolus.HIGH RISK: Target INR is 2.5-3.5 for patients with mechanical heart valves.CBC W/PLT COUNT & AUTO [id number] 08:01:00 Test Item Value Reference Range Comments WHITE BLOOD CELL COUNT (BEAKER) (test xvyw=156) 3.6 K/ L 3.5-10.5 RED BLOOD CELL COUNT (BEAKER) (test jmna=564) 3.90 M/ L 3.93-5.22 HEMOGLOBIN (BEAKER) (test elwc=301) 10.2 GM/DL 11.2-15.7 HEMATOCRIT (BEAKER) (test wizk=364) 32.6 % 34.1-44.9 MEAN CORPUSCULAR VOLUME (BEAKER) (test uvgr=169) 83.6 fL 79.4-94.8 MEAN CORPUSCULAR HEMOGLOBIN (BEAKER) (test 26.2 pg 25.6-32.2 occn=179) MEAN CORPUSCULAR HEMOGLOBIN CONC (BEAKER) (test 31.3 GM/DL 32.2-35.5 dbsl=530) RED CELL DISTRIBUTION WIDTH (BEAKER) (test 12.8 % 11.7-14.4 wyja=487) PLATELET COUNT (BEAKER) (test vrgz=262) 85 K/CU MM 150-450 MEAN PLATELET VOLUME (BEAKER) (test dgyr=059) 10.3 fL 9.4-12.3 NUCLEATED RED BLOOD CELLS (BEAKER) (test 0 /100 WBC 0-0 yrmq=251) NEUTROPHILS RELATIVE PERCENT (BEAKER) (test 81 % szhd=660) LYMPHOCYTES RELATIVE PERCENT (BEAKER) (test 10 % usdt=212) MONOCYTES RELATIVE PERCENT (BEAKER) (test 8 % tixg=938) EOSINOPHILS RELATIVE PERCENT (BEAKER) (test 1 % ilzc=886) BASOPHILS RELATIVE PERCENT (BEAKER) (test 0 % gdhr=932) NEUTROPHILS ABSOLUTE COUNT (BEAKER) (test 2.90 K/ L 1.56-6.13 pbal=684) LYMPHOCYTES ABSOLUTE COUNT (BEAKER) (test 0.35 K/ L 1.18-3.74 pwuz=953) MONOCYTES ABSOLUTE COUNT (BEAKER) (test cisz=603) 0.28 K/ L 0.24-0.36 EOSINOPHILS ABSOLUTE COUNT (BEAKER) (test 0.03 K/ L 0.04-0.36 mnbm=658) BASOPHILS ABSOLUTE COUNT (BEAKER) (test cnet=943) 0.01 K/ L 0.01-0.08 IMMATURE GRANULOCYTES-RELATIVE PERCENT (BEAKER) 0 % 0-1 (test zwme=3018) BONE AND/OR JOINT IMAGING, WHOLE [id number] 15:39:00Referring: Dr. Najma Underwood REPORT PROCEDURE: BONE SCAN, WHOLE BODY CPT CODE: 24885 INDICATION: Hepatocellular carcinoma, preoperative evaluation for liver transplant PROTOCOL: 21.0 mCi of Tc-99m MDP was injected intravenously. Whole body and selected spot images were obtained approximately 3 hours later. FINDINGS: Tracer activity is mildly increased in the cervical andlower thoracic spine as well as in the shoulders, hips, knees, and feet and ankles. IMPRESSION: 1. No evidence of bony neoplastic disease.2. 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 Signed: Kelly Hill MDReport Verified Date/Time: 2018 15:39:33 Reading Location: [address] Reading Room CT, CHEST, WITHOUT [id number] 11:25:00Referring: Dr. Najma Underwood REPORT INDICATION: Cirrhosis and hepatocellular carcinoma. Evaluate formetastatic disease. COMPARISON:None. TECHNIQUE: Chest CT exam WITHOUT intravenous contrast. The examwas performed according to our department dose-optimization protocol, which includes automated exposure control, adjustments of mA and kV according to patient size. Iterative reconstructions are also sometimes employed. FINDINGS:No suspicious pulmonary nodule, pleural effusion, or pleural nodularity demonstrated. No mediastinal or hilar lymphadenopathy. Left atrium is at the upper limits of normal indiameter measuring 4.0 cm AP dimension. Tiny focus of atherosclerotic plaque in the proximal left subclavian artery noted. Thoracic aorta normal in caliber. Main pulmonary artery normal in caliber. Esophagus unremarkable. Upper abdomen notable for cirrhosis and high density sludge in the gallbladder. No suspicious osseous lesion demonstrated. IMPRESSION: No evidence of thoracic metastatic disease. Signed: Andre Mancera MDReport Verified Date/Time: 06/02/2018 11:25 :36 Reading Location: [address] Radiology Reading Room RAD, BONE DENSITY [id number] 10:39:00Referring: Dr. Najma Broderick Reason for Exam:-> HCC,HCV,CIRRHOSIS,PRE TRANSPLANT EVALFINAL REPORT INDICATION: Osteoporosis screening.Postmenopausal female. TECHNIQUE: DEXA scan of the lumbar vertebral column and proximal femur. COMPARISON: None. FINDINGS: Lumbar bone density is 1.069 g/cm2, with corresponding T-score of -0.9. Left femoral neck bone density is 0.727 g/cm2, with corresponding T-score of - 2.2. Right femoral neck bone density is 0.710 g/cm2, with corresponding T- score of -2.4. IMPRESSION: Osteopenia of both femoral necks, bordering on osteoporosis of the right femoral neck. Bone density of the lumbar vertebral column within normal limits. Signed: Andre Mancera MDReport Verified Date/ Time: 06/02/2018 10:39:30 Reading Location: [address] Radiology Reading Room 10: 39 [id number] QUANTITATION & [id number] 09:08:00 Test Item Value Reference Range Comments DUNFZ-5-ADONPBYXJSM (QUEST) (test xwxx=[id number]) A-1 ANTITRYP PHENOTYP (QUEST) (test mtsg=2496239) ANTI-NUCLEAR ANTIBODY (SHARYN)2018-05-29 10:41:00 Test Item Value Reference Range Comments ANTI-NUCLEAR ANTIBODY (SHARYN) (BEAKER) (test Negative Negative eofw=089) Test performed by IFA method.Test performed by IFA method.HEPATITIS B PCR, [id number] 07:20:00 Test Item Value Reference Range Comments HBV RESULT COMPONENT (BEAKER) HBV DNA not detected HBV DNA not detected (test cdrb=8742) This test uses a Real-Time Polymerase Chain Reaction (RT-PCR) methodology and was performed using [employer] AmpliPrep/KIKE TaqMan HBV Test, v2.0 ([employer]Reportable range for this assay is 20 - 170,000,000 IU per mL (1.30 - 8.23 Log IU/mL).MISCELLANEOUS LAB [id number] 08:56:00 Test Item Value Reference Range Comments SCAN RESULT (test bkix=[id number]) HEMOGLOBIN [id number] 10:40:00 Test Item Value Reference Range Comments HEMOGLOBIN A1C (BEAKER) (test ncyn=899) 9.6 % 4.3-6.1 [id number] 21:06:00 Test Item Value Reference Range Comments T4 TOTAL (BEAKER) (test cwmv=290) 12.8 ug/dL 4.9-11.7 [id number] 14:28:00 Test Item Value Reference Range Comments RPR SCREEN (BEAKER) (test ydik=062) Nonreactive Nonreactive MM, DIGITAL, MAMMO, SCREENING, BILATERAL INCLUDING [id number] 13:45: 00Referring: Dr. Najma Jasmineiagnostic workup per radiologist?->YesReason for Exam:->HCC,HCV,CIRRHOSIS,PRE TRANSPLANT EVALN#: [id number] - MM, DIGITAL, MAMMO, SCREENING, BILATERAL INCLUDING CADBILATERAL DIGITAL SCREENING MAMMOGRAM WITH CAD: 05/26/2018CLINICAL: Routine screening mammogram. No prior films are available for comparison. Lack of availability of prior films for comparison reduces the sensitivity of mammography. The tissue of both breasts is heterogeneously dense. This may lower the sensitivity of mammography. Current study was also evaluated with a Computer Aided Detection (CAD) system. Vascularcalcifications and benign appearing calcifications are present in both breasts. No significant masses, calcifications, or other findings are seen in either breast. IMPRESSION: BENIGNThere is no mammographic evidence of malignancy. A 1 year screening mammogram is recommended. Comparison with priorexams is most helpful in determining interval change or stability. If priors are submitted an addendum will be issued. Lilli Lipscomb M.D. ds/:05/26/2018 13:45:53 Normal Exam Mammogram BI-RADS: 2 Benign G0202 RAD, MANDIBLE, MIN 4 [id number] 13:28:00Referring: Dr. Najma Parrish for Exam :->HCC,HCV,CIRRHOSIS,PRE TRANSPLANT EVALFINAL REPORT Mandible dated 05/26/2018 Comment: 4 views of the mandible were submitted for interpretation. Body, angle, and coronoid process of the mandible are intact without fracture. TMJs were obtained bilaterally. No osteolytic lesion or periodontal abscess noted. Impression: Unremarkable mandibular examination. Signed: Su Kerneport Verified Date/Time: 05/26/2018 13:28:38 Reading Location: [address] Radiology Reading Room [id number] 12:44:00 Test Item Value Reference Range Comments FERRITIN (BEAKER) (test yxon=833) 20 ng/mL 5-275 HEPATITIS B CORE ANTIBODY, [id number] 11:53:00 Test Item Value Reference Range Comments HEPATITIS B CORE TOTAL ANTIBODY (BEAKER) (test Reactive Nonreactive gkct=700) HEPATITIS C [id number] 11:52:00 Test Item Value Reference Range Comments HEPATITIS C ANTIBODY (BEAKER) (test rlsv=245) Reactive Nonreactive URINALYSIS W/ [id number] 11:39:00 Test Item Value Reference Range Comments COLOR (BEAKER) (test zrch=173) Yellow CLARITY (BEAKER) (test hdxi=435) Clear SPECIFIC GRAVITY UA (BEAKER) (test xihh=815) 1.030 1.001-1.035 PH UA (BEAKER) (test jdxd=708) 5.0 5.0-8.0 PROTEIN UA (BEAKER) (test hcxd=226) Negative Negative GLUCOSE UA (BEAKER) (test yrvi=633) >1000 mg/dL Negative KETONES UA (BEAKER) (test pduh=937) Negative Negative BILIRUBIN UA (BEAKER) (test mqjh=498) Negative Negative BLOOD UA (BEAKER) (test demd=619) Negative Negative NITRITE UA (BEAKER) (test fkzd=714) Negative Negative LEUKOCYTE ESTERASE UA (BEAKER) (test tzvd=038) Negative Negative UROBILINOGEN UA (BEAKER) (test ruat=191) 0.2 mg/dL 0.2-1.0 RBC UA (BEAKER) (test ycqy=975) < /HPF WBC UA (BEAKER) (test oqiz=593) < /HPF SQUAMOUS EPITHELIAL (BEAKER) (test sxpi=074) 1 /HPF SOURCE(BEAKER) (test nlmc=9636) CYTOMEGALOVIRUS ANTIBODY, [id number] 11:31:00 Test Item Value Reference Range Comments CYTOMEGALOVIRUS, IGG (BEAKER) (test nonx=7995) Positive Negative, Equivocal CMV IgG Result Interpretation: </=0.8 Al Negative 0.9-1.0 Al Equivocal &gt ;/=1.1 Al PositiveCYTOMEGALOVIRUS ANTIBODY, [id number] 11:31:00 Test Item Value Reference Range Comments CYTOMEGALOVIRUS IGM ANTIBODY (BEAKER) (test Negative Negative, Equivocal jorc=0644) CMV IgM Result Interpretation: </=0.8 Al Negative 0.9-1.0 Al Equivocal >/=1.1 Al PositiveEBV ANTIBODY, [id number] 11:31:00 Test Item Value Reference Range Comments SIMON SUNSHINE VIRAL CAPSID ANTIGEN IGG (BEAKER) Positive Negative, Equivocal (test jwrt=7833) Simon Sunshine Viral Capsid Antigen IgG Result Interpretation: </=0.8 Al Negative 0.9-1.0 Al Equivocal >/=1.1 Al PositiveEBV ANTIBODY, [id number] 11:31:00 Test Item Value Reference Range Comments SIMON SUNSHINE VIRAL CAPSID ANTIGEN IGM (BEAKER) Negative Negative, Equivocal (test udmc=9797) Simon Sunshine Viral Capsid Antigen IgM Result Interpretation: </=0.8 Al Negative 0.9-1.0 Al Equivocal >/=1.1 Al PositiveHEPATITIS B SURFACE [id number] 10:20:00 Test Item Value Reference Range Comments HEPATITIS B SURFACE ANTIBODY (BEAKER) (test < mIU/mL <8.0 hvzf=892) [id number] 10:05:00 Test Item Value Reference Range Comments THYROID STIMULATING HORMONE (BEAKER) (test 0.11 uIU/mL 0.35-4.94 nnho=435) HEPATITIS B SURFACE [id number] 09:45:00 Test Item Value Reference Range Comments HEPATITIS B SURFACE ANTIGEN (2) (BEAKER) (test Nonreactive Nonreactive fuzh=3452) HEPATITIS B CORE ANTIBODY, [id number] 09:45:00 Test Item Value Reference Range Comments HEPATITIS B CORE IGM ANTIBODY (BEAKER) (test Nonreactive Nonreactive tbdm=935) HEPATITIS A ANTIBODY, [id number] 09:42:00 Test Item Value Reference Range Comments HEPATITIS A IGG ANTIBODY (BEAKER) (test siuj=5065) Reactive Nonreactive HIV-1 ANTIGEN WITH HIV-1/2 [id number] 09:42:00 Test Item Value Reference Range Comments HIV-1 ANTIGEN WITH HIV 1\\T\\2 ANTIBODY (2) Nonreactive Nonreactive (BEAKER) (test hcfb=0407) VITAMIN D, [id number] 09:41:00 Test Item Value Reference Range Comments VITAMIN D 25-OH (BEAKER) (test mqei=8489) 24.9 ng/mL 6.6-49.9 Effective 12/17/2016: Reference Range ChangeNew: 6.6-49.9 ng/mL Previous: 13.0 -47.8 ng/mLRecommended Vitamin D Target Range: 30.0-40.0 ng/mLCARCINOEMBRYONIC ANTIGEN (CEA)2018-05-26 09:36:00 Test Item Value Reference Range Comments CARCINOEMBRYONIC ANTIGEN (BEAKER) (test jlku=817) 2.7 ng/mL 0.0-5.0 ALPHA FETOPROTEIN (AFP), TUMOR [id number] 09:36:00 Test Item Value Reference Range Comments ALPHA-FETOPROTEIN (BEAKER) (test zyud=8599) 15.8 ng/mL <10.0 HEPATITIS A ANTIBODY, [id number] 09:36:00 Test Item Value Reference Range Comments HEPATITIS A IGM ANTIBODY (BEAKER) (test Nonreactive Nonreactive rfdg=814) URIC [id number] 09:32:00 Test Item Value Reference Range Comments URIC ACID (BEAKER) (test cmuw=265) 5.0 mg/dL 2.6-7.2 [id number] 09:32:00 Test Item Value Reference Range Comments MAGNESIUM (BEAKER) (test mwzv=302) 1.9 mg/dL 1.6-2.6 [id number] 09:32:00 Test Item Value Reference Range Comments PHOSPHORUS (BEAKER) (test pyqc=432) 3.6 mg/dL 2.3-4.7 COMPREHENSIVE METABOLIC [id number] 09:32:00 Test Item Value Reference Range Comments TOTAL PROTEIN (BEAKER) 7.5 gm/dL 6.0-8.3 (test pqdz=104) ALBUMIN (BEAKER) (test 4.0 g/dL 3.5-5.0 ixpd=6197) ALKALINE PHOSPHATASE 133 U/L 40-150 (BEAKER) (test hlbq=802) BILIRUBIN TOTAL (BEAKER) 0.9 mg/dL 0.2-1.2 (test infw=836) SODIUM (BEAKER) (test 139 meq/L 136-145 mnjq=900) POTASSIUM (BEAKER) (test 3.9 meq/L 3.5-5.1 espp=298) CHLORIDE (BEAKER) (test 103 meq/L 98-107 fkcp=554) CO2 (BEAKER) (test 27 meq/L 22-29 zjoz=681) BLOOD UREA NITROGEN 17 mg/dL 7-21 (BEAKER) (test gjmd=196) CREATININE (BEAKER) (test 0.80 mg/dL 0.57-1.25 lgkn=378) GLUCOSE RANDOM (BEAKER) 182 mg/dL 70-105 (test acup=920) CALCIUM (BEAKER) (test 9.8 mg/dL 8.4-10.2 zlbj=490) AST (SGOT) (BEAKER) (test 22 U/L 5-34 vnhe=933) ALT (SGPT) (BEAKER) (test 19 U/L 6-55 yydz=543) EGFR (BEAKER) (test 72 mL/min/1.73 sq m ESTIMATED GFR IS NOT ylrl=0770) ACCURATE CREATININE CLEARANCE IN PREDICTING GLOMERULAR FILTRATION RATE. ESTIMATED GFR IS NOT APPLICABLE FOR DIALYSIS PATIENTS. LIPID [id number] 09:32:00 Test Item Value Reference Range Comments TRIGLYCERIDES (BEAKER) (test yvci=563) 69 mg/dL CHOLESTEROL (BEAKER) (test wokr=527) 218 mg/dL HDL CHOLESTEROL (BEAKER) (test lfaf=744) 87 mg/dL LDL CHOLESTEROL CALCULATED (BEAKER) (test 117 mg/dL fsbc=076) Triglyceride Reference Range: Low Risk <150 Borderline 150- 199 High Risk 200-499 Very High Risk >=500Cholesterol Reference Range: Low Risk <200 Borderline 200-239 High Risk > 240HDL Cholesterol Reference Range: Low Risk >=60 High Risk <40LDL Cholesterol Reference Range: Optimal <100 Near Optimal 100-129 Borderline 130-159 High 160-189 Very High >=190BILIRUBIN, [id number] 09:32:00 Test Item Value Reference Range Comments BILIRUBIN DIRECT (BEAKER) (test nyue=886) 0.4 mg/dL 0.1-0.5 GAMMA GLUTAMYL TRANSFERASE (GGT)2018-05-26 09:32:00 Test Item Value Reference Range Comments GAMMA GLUTAMYL TRANSFERASE (BEAKER) (test tudz=680) 59 U/L 9-64 BLOOD GAS, [id number] 09:27:00 Test Item Value Reference Range Comments PH ARTERIAL (BEAKER) (test jdzu=685) 7.40 7.35-7.45 PCO2 ARTERIAL (BEAKER) (test egup=698) 45 mmHg 35-45 PO2 ARTERIAL (BEAKER) (test itbz=667) 84 mmHg 80-90 O2 SATURATION ARTERIAL (BEAKER) (test jcag=923) 96.3 % 96.0-97.0 HCO3 ARTERIAL (BEAKER) (test yjrz=871) 28 mmol/L 21-29 BASE EXCESS ARTERIAL (BEAKER) (test dddl=564) 2.3 mmol/L -2.0-3.0 PATIENT TEMPERATURE (BEAKER) (test ihuy=4246) 37.0 C FIO2 (BEAKER) (test aihg=1734) 100.0 % [id number] 09:17:00 Test Item Value Reference Range Comments TRANSFERRIN (BEAKER) (test iuvc=462) 312 mg/dL 174-382 IRON, TIBC, % SAT. (WITHOUT FERRITIN)2018-05-26 09:17:00 Test Item Value Reference Range Comments IRON (BEAKER) (test uhxm=829) 49.0 ug/dL 40.0-160.0 TOTAL IRON BINDING CAPACITY (BEAKER) (test 393 ug/dL 250-450 vzpt=191) IRON % SATURATION (2) (BEAKER) (test adyb=8341) 12 % 20-55 [id number] 09:14:00 Test Item Value Reference Range Comments ETHANOL (BEAKER) (test fgek=358) < mg/dL <=10 CBC W/PLT COUNT & AUTO [id number] 09:06:00 Test Item Value Reference Range Comments WHITE BLOOD CELL COUNT (BEAKER) (test efnw=638) 4.3 K/ L 3.5-10.5 RED BLOOD CELL COUNT (BEAKER) (test wpxm=802) 4.26 M/ L 3.93-5.22 HEMOGLOBIN (BEAKER) (test ekfk=586) 12.1 GM/DL 11.2-15.7 HEMATOCRIT (BEAKER) (test uuyj=139) 37.3 % 34.1-44.9 MEAN CORPUSCULAR VOLUME (BEAKER) (test ngqm=990) 87.6 fL 79.4-94.8 MEAN CORPUSCULAR HEMOGLOBIN (BEAKER) (test 28.4 pg 25.6-32.2 nphk=579) MEAN CORPUSCULAR HEMOGLOBIN CONC (BEAKER) (test 32.4 GM/DL 32.2-35.5 vdsk=090) RED CELL DISTRIBUTION WIDTH (BEAKER) (test 12.5 % 11.7-14.4 xbnx=342) PLATELET COUNT (BEAKER) (test hmjp=083) 97 K/CU MM 150-450 MEAN PLATELET VOLUME (BEAKER) (test dtgr=723) 10.6 fL 9.4-12.3 NUCLEATED RED BLOOD CELLS (BEAKER) (test 0 /100 WBC 0-0 mdvc=211) NEUTROPHILS RELATIVE PERCENT (BEAKER) (test 82 % ocze=753) LYMPHOCYTES RELATIVE PERCENT (BEAKER) (test 10 % yqiw=509) MONOCYTES RELATIVE PERCENT (BEAKER) (test 7 % vqhv=250) EOSINOPHILS RELATIVE PERCENT (BEAKER) (test 1 % ghqv=918) BASOPHILS RELATIVE PERCENT (BEAKER) (test 0 % dnxi=292) NEUTROPHILS ABSOLUTE COUNT (BEAKER) (test 3.52 K/ L 1.56-6.13 saxl=820) LYMPHOCYTES ABSOLUTE COUNT (BEAKER) (test 0.41 K/ L 1.18-3.74 npqc=876) MONOCYTES ABSOLUTE COUNT (BEAKER) (test htle=978) 0.30 K/ L 0.24-0.36 EOSINOPHILS ABSOLUTE COUNT (BEAKER) (test 0.03 K/ L 0.04-0.36 ptfd=637) BASOPHILS ABSOLUTE COUNT (BEAKER) (test uqgk=282) 0.01 K/ L 0.01-0.08 IMMATURE GRANULOCYTES-RELATIVE PERCENT (BEAKER) 1 % 0-1 (test ritx=8059) [id number] 09:02:00 Test Item Value Reference Range Comments FIBRINOGEN LEVEL (BEAKER) (test hlbe=495) 349 mg/dl 225-434 [id number] 09:02:00 Test Item Value Reference Range Comments PARTIAL THROMBOPLASTIN TIME (BEAKER) (test 30.6 seconds 22.5-36.0 zchg=827) CALCIUM, [id number] 08:50:00 Test Item Value Reference Range Comments CALCIUM IONIZED (BEAKER) (test xxvh=166) 1.15 mmol/L 1.12-1.27 PH, BLOOD (BEAKER) (test nwxi=3447) 7.34 TISSUE [id number] 09:42:00Surgical Pathology Report Case: [id number] Authorizing Provider: Dennis Molina MD Collected: 04/07/2018 1033 Ordering Location: [facility] Endoscopy Received: 04/07/2018 1616 Services Pathologist: Sheila Hamilton MD Specimen: Biopsy, Gastric, GASTRIC BX A. STOMACH, RANDOM BIOPSIES: - ANTRAL MUCOSA WITH REACTIVE GASTROPATHY AND MILD CHRONIC INACTIVE GASTRITIS - OXYNTICMUCOSA WITH NO SIGNIFICANT DIAGNOSTIC ABNORMALITY - NEGATIVE FOR HELICOBACTER PYLORI ORGANISMS BY WARTHIN STARRY STAIN - NEGATIVE FOR INTESTINAL METAPLASIA, DYSPLASIA, MALIGNANCY Signing Pathologist Direct Phone Line: [phone] signed by Sheila Hamilton MD on at 9:42 [id number] chronic pancreatitis Gastric biopsy The specimen is received in a formalin-filled container labeled with the patient 's information and labeled "gastric biopsy" and consists of multiple fragments of hraden-pink soft tissue ranging from 0.1 to 0.3 cm, submitted entirely inA1. CG/ ew Performed.The interpretation of this case included the use of immunohistochemistry or special stains. Immunohistochemistry technical testing was performed at [facility],Pathology Laboratory where it was developed and its performance characteristics were determined. It has not been cleared or approved by the U.S. Food and Drug Administration. The FDA has determined that such clearance or approval is not necessary. The test is used for clinical purposes. It should not be regarded as investigational or for research. This laboratory is certified under the Clinical Laboratory Improvement Amendments of 1988 (CLIA-88) as qualified to perform high complexity clinical laboratory testing.POCT-GLUCOSE [id number] 10:20:00 Test Item Value Reference Range Comments POC-GLUCOSE METER (BEAKER) 185 mg/dL 70-110 TESTED AT [address] (test xrof=1605) [facility] [address] HEPATOBILIARY IMAGING W/ [id number] 16:11:00Referring: Dr. Najma Underwood REPORT PROCEDURE: HEPATOBILIARY SCAN with Sincalide Infusion CPT CODE: 47989 INDICATION: Cholelithiasis, worsening abdominal pain PROTOCOL: 5.4 mCi ofTc-99m mebrofenin was injected intravenously. Images of the upper abdomen were obtained for approximately 60 minutes after tracer injection. 1.3 micrograms (0.02 ugm/kg) of sincalide was then infused intravenously over approximately 60 minutes with continuous imaging during the infusion. FINDINGS: Initial tracer uptake into the liver is physiological. Subsequent tracer clearance from the liver proceeds normally. There is good visualization of the extrahepatic biliary duct and the gallbladder, and the tracer appears appropriately in the small bowel. Following injection of sincalide, serial images show good emptying of gallbladder contents into the small bowel. There is 61% emptying of the gallbladder. IMPRESSION: There is normal gallbladder filling and normal emptying in response tosincalide stimulation. . Signed: Aniceto Dove MDReport Verified Date/Time: 03/19/2018 16:11:41 Reading Location: [address] Reading Room HEPATITIS C PCR, [id number] 16:20:00 Test Item Value Reference Range Comments HCV RESULT COMPONENT (BEAKER) HCV RNA not detected HCV RNA not detected (test pstn=1466) This test uses a Real-Time Polymerase Chain Reaction (RT-PCR) methodology and was performed using KIKE Ampliprep/KIKE TaqMan HCV test kit version 2.0 ( [employer]).Reportable range for this assay is 15 - 100,000, 000 IU per mL (1.18 - 8.00 Log IU/mL).HEPATITIS B CORE ANTIBODY, [id number] 15:21:00 Test Item Value Reference Range Comments HEPATITIS B CORE TOTAL ANTIBODY (BEAKER) (test Reactive Nonreactive vlbl=147) MR, ABDOMEN, [id number] 15:10:00Referring: Dr. Najma Robledo Abdominal VesselsFINAL REPORT TECHNIQUE: MRI of the abdomen WITHOUT and WITH intravenous contrast. INDICATION: 62-year-old woman with cirrhosis and chronic pancreatitis. COMPARISON: Abdomen ultrasound 02/06/2018. FINDINGS: LOWER THORAX: Unremarkable. LIVER: Cirrhotic morphology of the liver. 1.6x 1.4 cm arterially enhancing lesion in segment IV/V with associated mild T2 hyperintensity as well as washout and capsule (axial postcontrast arterial series image 76). 1 cm arterially enhancing lesion in the periphery of segment V with associated mild T2 hyperintensity as well as washout and capsule(axial postcontrast arterial series image 63). Few scattered arterially enhancing foci , the largest measures 1.3 x 1.1 cm in the hepatic dome, without definite corresponding T2 signal abnormality, washout, or capsule. Subcentimeter cyst in segment V adjacent to the gallbladder.BILIARY: Cholelithiasis without gallbladder wall thickening or pericholecystic edema. No biliary ductal dilatation or fillingdefect.SPLEEN: The spleen is enlarged, measuring 16.1 cm in the craniocaudal dimension.PANCREAS: 0.6cm unilocular cystic lesion in the pancreatic tail. No focal masses or ductal dilatation. ADRENALS: No adrenal nodules.KIDNEYS/URETERS: No hydronephrosis or solid mass lesions. PERITONEUM/ RETROPERITONEUM: No free fluid.LYMPH NODES: No lymphadenopathy.VESSELS: Portal system and hepatic veins are patent. Main portal vein measures 1.6 cm in diameter. GI TRACT: No distention or wall thickening. BONES ANDSOFT TISSUES: Degenerative changes of the visualized spine. Soft tissues are unremarkable. IMPRESSION:Cirrhosis with evidence of portal hypertension. 1.6 cm and 1 cm lesions in segments IV/V and V, respectively, are suspicious for hepatocellular carcinoma. Additional arterially enhancing foci are indeterminate. Subcentimeter cystic lesion in the pancreatic tail. Cholelithiasis. Signed: Lucho Case MDReport Verified Date/Time: 03/11/2018 15:10:28 Reading Location: [address] Radiology Reading Room HEPATITIS A ANTIBODY, [id number] 14:13:00 Test Item Value Reference Range Comments HEPATITIS A IGG ANTIBODY (BEAKER) (test cpwv=4552) Reactive Nonreactive HEPATITIS B SURFACE [id number] 14:13:00 Test Item Value Reference Range Comments HEPATITIS B SURFACE ANTIBODY (BEAKER) (test < mIU/mL <8.0 sjeb=280) HEPATITIS B SURFACE [id number] 13:53:00 Test Item Value Reference Range Comments HEPATITIS B SURFACE ANTIGEN (2) (BEAKER) (test Nonreactive Nonreactive bxhn=3129) HEPATIC FUNCTION [id number] 13:39:00 Test Item Value Reference Range Comments TOTAL PROTEIN (BEAKER) (test inpb=250) 7.1 gm/dL 6.0-8.3 ALBUMIN (BEAKER) (test lxsr=6107) 3.8 g/dL 3.5-5.0 BILIRUBIN TOTAL (BEAKER) (test ifej=472) 1.1 mg/dL 0.2-1.2 BILIRUBIN DIRECT (BEAKER) (test vklu=039) 0.5 mg/dL 0.1-0.5 ALKALINE PHOSPHATASE (BEAKER) (test brpi=604) 96 U/L 40-150 AST (SGOT) (BEAKER) (test xywj=432) 20 U/L 5-34 ALT (SGPT) (BEAKER) (test jfwu=711) 14 U/L 6-55 BASIC METABOLIC [id number] 13:39:00 Test Item Value Reference Range Comments SODIUM (BEAKER) (test 137 meq/L 136-145 yhbk=389) POTASSIUM (BEAKER) (test 4.0 meq/L 3.5-5.1 rlfw=467) CHLORIDE (BEAKER) (test 102 meq/L 98-107 zodw=921) CO2 (BEAKER) (test 29 meq/L 22-29 okyt=740) BLOOD UREA NITROGEN 15 mg/dL 7-21 (BEAKER) (test anks=918) CREATININE (BEAKER) (test 0.78 mg/dL 0.57-1.25 sbln=707) GLUCOSE RANDOM (BEAKER) 191 mg/dL 70-105 (test xowc=685) CALCIUM (BEAKER) (test 9.6 mg/dL 8.4-10.2 ooic=032) EGFR (BEAKER) (test 74 mL/min/1.73 sq m ESTIMATED GFR IS NOT qznz=1858) ACCURATE CREATININE CLEARANCE IN PREDICTING GLOMERULAR FILTRATION RATE. ESTIMATED GFR IS NOT APPLICABLE FOR DIALYSIS PATIENTS. PROTHROMBIN [id number] 13:15:00 Test Item Value Reference Range Comments PROTIME (BEAKER) (test nqbs=994) 13.7 seconds 11.7-14.7 INR (BEAKER) (test brdz=117) 1.0 <=5.9 RECOMMENDED COUMADIN/WARFARIN INR THERAPY RANGESSTANDARD DOSE: 2.0 - 3.0 Includes: PROPHYLAXIS forvenous thrombosis, systemic embolization; TREATMENT for venous thrombosis and/or pulmonary embolus.HIGH RISK: Target INR is 2.5-3.5 for patients with mechanical heart valves.[id number] 13:12:00 Test Item Value Reference Range Comments POC-CREATININE (BEAKER) 0.7 mg/dL 0.6-1.3 TESTED AT [facility] [address] [facility] (test ymjm=3517) [facility] [address] POC-EGFR (BEAKER) (test 84 mL/min/1.73M2 pxof=7551) CBC W/PLT COUNT & AUTO [id number] 13:11:00 Test Item Value Reference Range Comments WHITE BLOOD CELL COUNT (BEAKER) (test iqqb=868) 4.6 K/ L 3.5-10.5 RED BLOOD CELL COUNT (BEAKER) (test hrfw=220) 4.64 M/ L 3.93-5.22 HEMOGLOBIN (BEAKER) (test agwx=877) 13.5 GM/DL 11.2-15.7 HEMATOCRIT (BEAKER) (test ubhy=111) 40.0 % 34.1-44.9 MEAN CORPUSCULAR VOLUME (BEAKER) (test lqcp=581) 86.2 fL 79.4-94.8 MEAN CORPUSCULAR HEMOGLOBIN (BEAKER) (test 29.1 pg 25.6-32.2 njss=213) MEAN CORPUSCULAR HEMOGLOBIN CONC (BEAKER) (test 33.8 GM/DL 32.2-35.5 zbvi=457) RED CELL DISTRIBUTION WIDTH (BEAKER) (test 12.5 % 11.7-14.4 igit=532) PLATELET COUNT (BEAKER) (test valt=339) 105 K/CU MM 150-450 MEAN PLATELET VOLUME (BEAKER) (test jatv=317) 10.6 fL 9.4-12.3 NUCLEATED RED BLOOD CELLS (BEAKER) (test 0 /100 WBC 0-0 gzfj=796) NEUTROPHILS RELATIVE PERCENT (BEAKER) (test 76 % frty=232) LYMPHOCYTES RELATIVE PERCENT (BEAKER) (test 16 % xwie=137) MONOCYTES RELATIVE PERCENT (BEAKER) (test 6 % znwb=398) EOSINOPHILS RELATIVE PERCENT (BEAKER) (test 1 % jniw=220) BASOPHILS RELATIVE PERCENT (BEAKER) (test 0 % nnmq=737) NEUTROPHILS ABSOLUTE COUNT (BEAKER) (test 3.47 K/ L 1.56-6.13 uydb=691) LYMPHOCYTES ABSOLUTE COUNT (BEAKER) (test 0.73 K/ L 1.18-3.74 urbj=658) MONOCYTES ABSOLUTE COUNT (BEAKER) (test 0.29 K/ L 0.24-0.36 qlus=674) EOSINOPHILS ABSOLUTE COUNT (BEAKER) (test 0.05 K/ L 0.04-0.36 sora=987) BASOPHILS ABSOLUTE COUNT (BEAKER) (test 0.02 K/ L 0.01-0.08 epne=993) IMMATURE GRANULOCYTES-RELATIVE PERCENT (BEAKER) 0 % 0-1 (test elsi=4942) URINE [id number] 17:30:00 Test Item Value Reference Range Comments CULTURE (BEAKER) (test ESCHERICHIA COLI >100,000 col/mL dgsr=8866) Escherichia coli Amikacin (test code=1) Ampicillin + Sulbactam (test code=6) Aztreonam (test code=32) Cefepime (test code=51) Cefoxitin (test code=68) Ceftazidime (test code=27) Ceftriaxone (test code=52) Ertapenem (test code=38) Gentamicin (test code=18) Levofloxacin (test code=22) Meropenem (test code=34) Nitrofurantoin (test code=23) Piperacillin + Tazobactam (test code=29) Tetracycline (test code=2) Tobramycin (test code=25) Trimethoprim + Sulfamethoxazole (test code=47) CULTURE (BEAKER) (test 10-19,000 col/mL edzg=4701) Jo glabrata 10-19,000 col/mL skin floraU/S, ABDOMINAL, [id number] 15:32:00Abdomen limited area? Add comment if clarification is needed.->Gall BladderReason for exam:->RUQ and epigastric painFINAL REPORT TECHNIQUE: Grayscale ultrasound of the right abdomen. INDICATION: 62-year-old woman with right upper quadrant epigastric pain. COMPARISON: None. FINDINGS: MIDLINE VASCULATURE: The visualized inferior vena cava is patent. Portal vein is patent and measures 0.9 cm indiameter. The maximum visualized aortic diameter is 1.7 cm. LIVER: The liver is normal in size. Nodular liver contour with coarsened echotexture, consistent with cirrhosis. No focal lesions. BILIARY :Gallbladder: Multiple shadowing gallstones. The gallbladder wall is mildly thickened up to 0.4 cm, nonspecific in the setting of cirrhosis. No pericholecystic fluid or gallbladder distention. Negative sonographic Markham sign.Common bile duct measures 0.6 cm, upper limit of normal. No intrahepatic biliaryductal dilatation. PANCREAS: Visualized portions of the pancreas are unremarkable. PERITONEUM: No free fluid. RIGHT KIDNEY: Normal in size. No hydronephrosis. No sonographically evident solid mass lesion. IMPRESSION: Cholelithiasis. No specific evidence of acute cholecystitis. Cirrhosis. Signed: Lucho Caseort Verified Date/Time: 02/06/2018 15:32:55 Reading Location: [facility] C013 CT Body Reading Room URINALYSIS W/ [id number] 14: 28:00 Test Item Value Reference Range Comments COLOR (BEAKER) (test swgm=579) Yellow CLARITY (BEAKER) (test vfrz=301) Hazy SPECIFIC GRAVITY UA (BEAKER) (test njvx=676) 1.027 1.001-1.035 PH UA (BEAKER) (test itln=365) 5.5 5.0-8.0 PROTEIN UA (BEAKER) (test nbnw=562) Negative Negative GLUCOSE UA (BEAKER) (test dghe=123) >1000 mg/dL Negative KETONES UA (BEAKER) (test wssu=643) Negative Negative BILIRUBIN UA (BEAKER) (test sofw=390) Negative Negative BLOOD UA (BEAKER) (test bpfj=499) Negative Negative NITRITE UA (BEAKER) (test lrdb=444) Positive Negative LEUKOCYTE ESTERASE UA (BEAKER) (test awmf=228) Large Negative UROBILINOGEN UA (BEAKER) (test afdk=870) 0.2 mg/dL 0.2-1.0 RBC UA (BEAKER) (test fkuj=682) 2 /HPF WBC UA (BEAKER) (test zeqv=430) 167 /HPF BACTERIA (BEAKER) (test xizj=546) Few SQUAMOUS EPITHELIAL (BEAKER) (test sqsr=461) < /HPF YEAST (BEAKER) (test jlcm=6176) Moderate SOURCE(BEAKER) (test clcr=6273) [id number] 13:38:00 Test Item Value Reference Range Comments LIPASE (BEAKER) (test cabz=434) 22 U/L 8-78 [id number] 13:38:00 Test Item Value Reference Range Comments AMYLASE (BEAKER) (test pvyy=825) 25 U/L 25-125 BASIC METABOLIC [id number] 13:38:00 Test Item Value Reference Range Comments SODIUM (BEAKER) (test 136 meq/L 136-145 fidf=528) POTASSIUM (BEAKER) (test 4.6 meq/L 3.5-5.1 adxc=952) CHLORIDE (BEAKER) (test 99 meq/L 98-107 zbfr=926) CO2 (BEAKER) (test 27 meq/L 22-29 jsnd=668) BLOOD UREA NITROGEN 13 mg/dL 7-21 (BEAKER) (test ekzp=790) CREATININE (BEAKER) (test 0.76 mg/dL 0.57-1.25 qbwf=714) GLUCOSE RANDOM (BEAKER) 177 mg/dL 70-105 (test weke=019) CALCIUM (BEAKER) (test 9.2 mg/dL 8.4-10.2 yyqo=819) EGFR (BEAKER) (test 77 mL/min/1.73 sq m ESTIMATED GFR IS NOT lyxw=0988) ACCURATE CREATININE CLEARANCE IN PREDICTING GLOMERULAR FILTRATION RATE. ESTIMATED GFR IS NOT APPLICABLE FOR DIALYSIS PATIENTS. HEPATIC FUNCTION [id number] 13:38:00 Test Item Value Reference Range Comments TOTAL PROTEIN (BEAKER) (test qaqe=597) 7.2 gm/dL 6.0-8.3 ALBUMIN (BEAKER) (test nczt=6406) 3.6 g/dL 3.5-5.0 BILIRUBIN TOTAL (BEAKER) (test pyaa=718) 1.5 mg/dL 0.2-1.2 BILIRUBIN DIRECT (BEAKER) (test lfyk=522) 0.7 mg/dL 0.1-0.5 ALKALINE PHOSPHATASE (BEAKER) (test etws=555) 93 U/L 40-150 AST (SGOT) (BEAKER) (test vtoc=762) 19 U/L 5-34 ALT (SGPT) (BEAKER) (test pvox=893) 12 U/L 6-55 CBC W/PLT COUNT & AUTO [id number] 13:09:00 Test Item Value Reference Range Comments WHITE BLOOD CELL COUNT (BEAKER) (test oqmk=804) 6.0 K/ L 3.5-10.5 RED BLOOD CELL COUNT (BEAKER) (test jywl=270) 4.23 M/ L 3.93-5.22 HEMOGLOBIN (BEAKER) (test ywle=173) 12.7 GM/DL 11.2-15.7 HEMATOCRIT (BEAKER) (test etir=197) 37.2 % 34.1-44.9 MEAN CORPUSCULAR VOLUME (BEAKER) (test nvpn=756) 87.9 fL 79.4-94.8 MEAN CORPUSCULAR HEMOGLOBIN (BEAKER) (test 30.0 pg 25.6-32.2 hgim=864) MEAN CORPUSCULAR HEMOGLOBIN CONC (BEAKER) (test 34.1 GM/DL 32.2-35.5 ytwf=795) RED CELL DISTRIBUTION WIDTH (BEAKER) (test 12.6 % 11.7-14.4 afwh=182) PLATELET COUNT (BEAKER) (test zenq=523) 91 K/CU MM 150-450 MEAN PLATELET VOLUME (BEAKER) (test snow=763) 10.1 fL 9.4-12.3 NUCLEATED RED BLOOD CELLS (BEAKER) (test 0 /100 WBC 0-0 kfof=629) NEUTROPHILS RELATIVE PERCENT (BEAKER) (test 84 % sjzc=054) LYMPHOCYTES RELATIVE PERCENT (BEAKER) (test 9 % xgna=036) MONOCYTES RELATIVE PERCENT (BEAKER) (test 7 % nogq=350) EOSINOPHILS RELATIVE PERCENT (BEAKER) (test 1 % sumj=332) BASOPHILS RELATIVE PERCENT (BEAKER) (test 0 % uanw=191) NEUTROPHILS ABSOLUTE COUNT (BEAKER) (test 5.02 K/ L 1.56-6.13 xsut=920) LYMPHOCYTES ABSOLUTE COUNT (BEAKER) (test 0.51 K/ L 1.18-3.74 gjse=835) MONOCYTES ABSOLUTE COUNT (BEAKER) (test cbyz=344) 0.40 K/ L 0.24-0.36 EOSINOPHILS ABSOLUTE COUNT (BEAKER) (test 0.03 K/ L 0.04-0.36 cwsm=802) BASOPHILS ABSOLUTE COUNT (BEAKER) (test ttjw=948) 0.01 K/ L 0.01-0.08 IMMATURE GRANULOCYTES-RELATIVE PERCENT (BEAKER) 1 % 0-1 (test vaxo=1539)
--- OUTSIDE RECORDS SUMMARY | 2019-05-24 10:04 | XMS REPORT | Summary of Care ---
:1955 Author Organization [facility] [place] [address] Care Team Providers Name Role Phone Alireza Valles Primary Care Provider Reason for Visit Reason Comments Diabetes Mellitus Osteoporosis Encounter Details Date Type Department Care Team Description [facility] Medicine MD Reynold Osteoporosis Endocrinology [address] [facility] [id number], [address] [place] [id number] Allergies Active Allergy Reactions Severity Noted Date Comments Sulfa Antibiotics Anaphylaxis High 04/02/2018 Tongue swelling documented as of this encounter (statuses as of 11/03/2018) Medications Medication Sig Dispensed Refills Start Date End Date Status carvedilol (COREG) Take 3.125 mg 0 Active 3.125 MG tablet by mouth daily. escitalopram (LEXAPRO) Take 20 mg by 0 Active 20 MG tablet mouth daily. tramadol (ULTRAM) 50 MG Take 50 mg by 0 Active tablet mouth as needed. ursodiol (ACTIGALL) 300 Take 300 mg by 2 01/14/2018 Active MG capsule mouth daily. spironolactone Take 100 mg by 0 Active (ALDACTONE) 25 MG mouth daily. tablet omeprazole (PRILOSEC) Take 40 mg by 0 01/05/2018 Active 40 MG capsule mouth daily. ZENPEP [id number] Take 1 capsule 0 02/06/2018 Active units CPEP by mouth 3 times daily. Empagliflozin Take 10 mg by 90 Tab 3 07/28/2018 Active (JARDIANCE) 10 MG TABS mouth daily. levothyroxine Take 137 mcg by 90 Tab 3 07/28/2018 Active (SYNTHROID) 137 MCG mouth daily. tablet Insulin Lispro Prot & Inject 20 Units 0 Active Lispro (HUMALOG MIX into the skin 75/25 KWIKPEN SC) two times daily. pregabalin (LYRICA) 50 Take 1 Cap by 180 Cap 3 09/03/2018 Active MG capsuleIndications: mouth two times Diabetic polyneuropathy daily. associated with type 2 diabetes mellitus furosemide (LASIX) 40 Take 40 mg by 0 07/30/2018 07/30/2019 Active MG tablet mouth. documented as of this encounter (statuses as of 11/03/2018) Active Problems Problem Noted Date HCC (hepatocellular carcinoma) 08/03/2018 Other cirrhosis of liver 04/28/2018 documented as of this encounter (statuses as of 11/03/2018) Social History Tobacco Use Types Packs/Day Years Used Date Former Smoker Cigarettes 10 Smokeless Tobacco: Never Used Alcohol Use Drinks/Week oz/Week Comments Not Currently Stopped Alcohol Habits Answer Date Recorded How often do you have a drink containing alcohol? Never 04/02/2018 How many drinks containing alcohol do you have on a typical day 1 or 2 2018 when you are drinking? How often do you have six or more drinks on one occasion? Never 04/02/2018 Sex Assigned at Date Recorded Not on file Job Start Date Occupation Industry Not on file Not on file Not on file Travel History Travel Start Travel End No recent travel history available. documented as of this encounter Last Filed Vital Signs Vital Sign Reading Time Taken Comments Blood Pressure 150/75 11/03/2018 1:16 PM CDT Pulse 61 11/03/2018 1:16 PM CDT Temperature 36.4 C (97.6 F) 11/03/2018 1:16 PM CDT Respiratory Rate - - Oxygen Saturation - - Inhaled Oxygen Concentration - - Weight 83.2 kg (183 lb 6.4 oz) 11/03/2018 1:16 PM CDT Height 162.6 cm (5' 4") 11/03/2018 1:16 PM CDT Body Mass Index 31.48 11/03/2018 1:16 PM CDT documented in this encounter Progress Notes Evan Ellison MD - 11/03/2018 1:30 PM CDT Endocrinology Clinic Visit Note Date of Visit: 11/03/18 Reason for Visit: Liver Transplant Evaluation, Osteopenia HPI: Pleasant 63 y.o. female with history of HepC Cirrhosis c/b HCC currently undergoing liver transplantevaluation who was referred for f/u of osteopenia. She also last saw Dr. Bennett for T2DM (6.8%) on 09/03/2018. Bone Health No prior history of fragility fractures as an adult. No family history of osteoporosis or parental history of fragility hip fracture. No prior diagnosis of T1DM, RA, or primary hyperparathryoidism. Denies prior XRT exposure. Does not actively smoke. Former smoker who quit 05/2018 -- smoked about 1 pack/ week for 10 years. Does not actively drink EtOH - quit 05/2018. She was never a heavy drinker and only drank socially. She does not have unsteady gait and does not use DME. Does not fall often. Resistance Exercises: none - sedentary mostly due to her health conditions with worsening cirrhosis. Calcium Diet/Supplementation: drinks 1 full 16 ounce glass of milk @ breakfast daily, eats yogurt/cheese occasionally, stopped Ca supplements due to constipation Vitamin D Supplementation: Currently taking 5000 units daily D3, started after finding her vitamin D,25-OH level to be 24.9, no f/u since starting 4 months ago. Recent DXA for screening performed: Lumbar bone density is 1.069 g/cm2, with corresponding T-score of -0.9. Left femoral neck bone density is 0.727 g/cm2, with corresponding T-score of - 2.2. Right femoral neck bone density is 0.710 g/cm2, with corresponding T-score of - 2.4. Brief DM History: Currently taking 75/25 mixed insulin 22 units immediately after breakfast and 20 units after dinner BID Also takes Jardiance 10 mg daily, no UTI or yeast infections since starting SGLT2 Checks BG with Charly - briefly reviewed during visit today Recently has occasional low BG in AM (pippa 68, gets shaky, lightheaded sometimes when in 70-80s), happens 1-2x/week No history of diabetic foot ulcers Most recent A1c 6.8% 07/2018 History of hypothyroidism (presumed autoimmune?) Has been on LT4 150 mcg for many years. Recently TFTs were abnormal but PCP did not make any changes to dose, dose lowered to 137 mcg 3 months ago. No recent labs She denies symptoms of palpitations, anxiety, heat/cold intolerance, tremors. Interim History 10/2018 10 pound unintentional weight gain. Feels it is fluid in the belly in legs. Some forgetfulness per and daughter, but otherwise is doing well. Swapped to Lyrica from Gabapentin 09/03 and neuropathy is improved, though not completely gone. Review of Systems: General: no fevers, no chills, +weight changes, no night sweats Skin: no rashes, no hair thinning Eyes: no recent vision changes HENT: no dry mouth, no difficulty swallowing CV: no chest pain, no palpitations, no leg swelling Pulm: no cough, no Gonzalez, no SOB GI: no constipation, no diarrhea : no dysuria, no polyuria Endo: no hot/cold intolerance, no polyphagia, no polydipsia Heme: no easy bruising Neuro: no numbness or tingling, no syncope MSK: no arthralgias Past Medical History: Diagnosis Date Ascites Cholecystitis Cirrhosis DM (diabetes mellitus) Hepatitis C Hypothyroid Lesion of pancreas Liver mass Migraines Pancreatitis Portal hypertension RA (rheumatoid arthritis) Smoker Past Surgical History: Procedure Laterality Date HX CARPAL TUNNEL RELEASE Bilateral HX CATARACT REMOVAL HX SECTION 3 HX UPPER GASTROINTESTINAL ENDOSCOPY Social History Socioeconomic History Marital status: Spouse name: Not on file Number of children: 3 Years of education: Not on file Highest education level: Not on file 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 History 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 [employer] Social Needs Financial resource strain: Not on file Food insecurity: Worry: Not on file Inability: Not on file Transportation needs: Medical: Not on file Non-medical: Not on file Tobacco Use Smoking status: Former Smoker Years: 10.00 Types: Cigarettes Smokeless tobacco: Never Used Substance and Sexual Activity Alcohol use: Not Currently Frequency: Never Drinks per session: 1 or 2 Binge frequency: Never Comment: Stopped Drug use: No Sexual activity: Not on file Lifestyle Physical activity: Days per week: Not on file Minutes per session: Not on file Stress: Not on file Relationships Social connections: Talks on phone: Not on file Gets together: Not on file Attends buddhism service: Not on file Active member of club or organization: Not on file Attends meetings of clubs or organizations: Not on file Relationship status: Not on file Intimate partner violence: Fear of current or ex partner: Not on file Emotionally abused: Not on file Physically abused: Not on file Forced sexual activity: Not on file Other Topics Concerns: Not on file Social History Narrative 3 kids Family History Problem Relation Name Age of Onset Heart Attack Mother 70 Other (cardiac bypass) Mother 70 COPD Father Heart Disease Father Leukemia Maternal Uncle Lung Cancer Maternal Uncle Congenital Heart Disease Other Spouse Allergies Allergen Reactions Sulfa Antibiotics Anaphylaxis Tongue swelling Vitals: BP 150/75 (Patient Position: Sitting) | Pulse 61 | Temp 97.6 F (36.4 C) ( Oral) | Ht 5' 4" (1.626 m) | Wt 183 lb 6.4 oz (83.2 kg) | LMP (LMP Unknown) | BMI 31.48 kg/m Physical Exam: General: pleasant, sitting in chair on RA in NAD Eyes: PERRL, anicteric HENT: MMM Neck: no thyromegaly CV: RRR Pulm: CTAB, no respiratory distress on RA Abd: soft, distended but not tense, +umbilical hernia Ext: no leg swelling Skin: warm, dry, no rashes noted Neuro: moving all extremities, A&Ox3 Labs/Studies: Lumbar bone density is 1.069 g/cm2, with corresponding T-score of -0.9. Left femoral neck bone density is 0.727 g/cm2, with corresponding T-score of - 2.2. Right femoral neck bone density is 0.710 g/cm2, with corresponding T-score of - 2.4. Results for IRA NICOLE ( ) as of 07/28/2018 13:39 05/26/2018 07:56 VITAMIN D 25-HYDROXY 24.9 Results for IRA NICOLE ( ) as of 07/28/2018 13:39 05/26/2018 07:56 07/16/2018 07:32 GLUCOSE 182 (H) 153 (H) BLOOD UREA NITROGEN 17 18 CREATININE 0.80 0.76 SODIUM 139 140 POTASSIUM 3.9 4.4 CHLORIDE 103 106 CO2 27 27 CALCIUM 9.8 9.2 ALBUMIN 4.0 3.4 (L) BILIRUBIN TOTAL 0.9 0.5 ALKALINE PHOSPHATASE 133 113 AST (SGOT) 22 21 ALT (SGPT) 19 18 PHOSPHORUS 3.6 URIC ACID 5.0 MAGNESIUM 1.9 BILIRUBIN DIRECT 0.4 0.2 Results for IRA NICOLE ( ) as of 11/03/2018 13:17 05/26/2018 07:56 09/03/2018 09:10 HEMOGLOBIN A1C 9.6 (H) 6.8 (A) Results for IRA NICOLE ( ) as of 07/28/2018 13:39 05/26/2018 07:56 TSH REFLEX 0.11 (L) T4 TOTAL 12.8 (H) Assessment: Pleasant 63 y.o. female undergoing liver transplant evaluation (HepC cirrhosis) who was referred forosteopenia. In review of her risk factors, calculated FRAX 10-year risk of major osteoporotic fracture / hip fracture was 12% / 2.3%. This falls under the treatment criteria of 20% / 3%, so no plans to treat with anti-resorptive therapy at this time. Plan to recheck vitamin D & PTH with her routine labs due 11/05/2018. Will also f/u thyroid function studies after recent dose adjustment. Plan: 1. Labs scheduled for 11/05/18 (liver) -- will add on PTH, vitamin D, TSH, Free T4 [facility] 2. Continue vitamin D3 5000 IU daily and will adjust dosing if still not at goal (30 ng/dL) 3. Repeat DEXA at 05/2020 (2 years after last image) 4. Due to early AM hypoglycemia, asked to lower 75/25 mix insulin from 22u/20u to 22u/15u BID 5. Will be seeing Dr. Bennett in December for DM 6. Continue 137 mcg daily Levothyroxine but will advise if any changes indicated based on lab work 11/05 7. Advised to schedule f/u earlier especially if transplant occurs as all liver transplant patients MUST initiate anti-resorptive therapy for minimum 3 years post-transplant to avoid bone loss. F/u pending lab results. Should continue to f/u for DM with Dr. Bennett. If lab results adequate f/u in bone clinic in 1 year unless she sustains a fracture or liver transplant occurs. Evan Ellison MD Endocrinology, Diabetes, and Metabolism [facility] 11/03/18 12:56 PM documented in this encounter Plan of Treatment Date Type Specialty Care Team Description 12/24/2018 Office Visit Endocrinology Kiara Bennett MD [address] [facility] [address] [place] [address] [phone] 02/16/2019 Office Visit Hematology and Oncology Jensen Antony MD [address] [facility] 7th Floor, [address] [place] [address] [phone] 02/16/2019 Office Visit Neurology Stephon Lizarraga MD [address] [facility] [address] [place] [address] [phone] Name Type Priority Associated Diagnoses Order Schedule VITAMIN D 25 HYDROXY Lab Routine Vitamin D deficiency Ordered: 11/03/2018 Osteopenia of multiple sites COMPREHENSIVE METABOLIC Lab Routine Controlled type 2 diabetes Ordered: PANEL with neuropathy PTH INTACT Lab Routine Osteopenia of multiple Ordered: 11/03/2018 sites TSH Lab Routine Acquired hypothyroidism Ordered: 11/03/2018 T4 FREE Lab Routine Acquired hypothyroidism Ordered: 11/03/2018 Health Maintenance Due Date Last Done Comments COLON CANCER SCREENIN1955 COLONOSCOPY TETANUS SHOT (ADULT) 1968 ANNUAL DIABETIC RETINOPATHY 10/19/1971 SCREENING BMI FOLLOW UP PLAN 10/19/1971 FLU VACCINE > 6 MONTHS 10/07/2018 11/29/2017 FALL SCREEN 2018 OSTEOPOROSIS SCREENING 2018 06/02/2018, 06/02/2018 PNEUMOVAX >=65 (PPSV23) 2018 PREVNAR >=65 (PCV13) 2018 A1C TESTING EVERY 6 MONTHS 03/05/2019 09/03/2018, 05/26/2018 MAMMOGRAM ANNUAL 05/27/2019 05/26/2018, 05/26/2018 ANNUAL DIABETIC FOOT EXAM 09/04/2019 09/03/2018 HEPATITIS C SCREENING Completed 05/26/2018, 05/26/2018, 05/26/2018, Additional history exists documented as of this encounter Results Not on filedocumented in this encounter Visit Diagnoses Diagnosis Vitamin D deficiency - Primary Unspecified vitamin D deficiency Controlled type 2 diabetes with neuropathy Type II or unspecified type diabetes mellitus with neurological manifestations , not stated as uncontrolled Acquired hypothyroidism Unspecified hypothyroidism Osteopenia of multiple sites documented in this encounter Insurance Payer Benefit Plan / Subscriber ID Effective Dates Phone Address Type Group [employer] OPEN ACCESS xxxxxxxxx 2018-Present [address] POS HMO/POS/EPO/PPO - [place]OPE[place] [employer] [id number] documented as of this encounter
--- OUTSIDE RECORDS SUMMARY | 2019-05-24 10:05 | XMS REPORT | Summary of Care ---
:1955 Author Organization [facility] [place] [address] Care Team Providers Name Role Phone Alireza Valles Primary Care Provider Reason for Visit Reason Comments Follow-up Visit - Diabetes BS this morning 102 Encounter Details Date Type Department Care Team Description 12/24/2018 Office Visit [facility], Follow-up Visit - Medicine Diabetes (BS this Endocrinology [address] morning 102) [address]; [address] [place] [address] [place] [phone] [address] [phone] Allergies Active Allergy Reactions Severity Noted Date Comments Sulfa Antibiotics Anaphylaxis High 04/02/2018 Tongue swelling documented as of this encounter (statuses as of 12/24/2018) Medications Medication Sig Dispensed Refills Start Date [...] Active 40 MG capsule mouth daily. ZENPEP [id number] Take 1 capsule 0 02/06/2018 Active units [...] daily. associated with type 2 diabetes mellitus (HCCode) furosemide (LASIX) 40 Take 40 mg by 0 07/30/2018 07/30/2019 Active MG tablet mouth. Na Sulfate-K Sulfate-Mg [SUPREP] Take 1 Bottle 0 12/02/2018 Active Sulf (SUPREP BOWEL PREP as directed. KIT) 17.5-3.13-1.6 GM/177ML SOLN documented as of this encounter (statuses as of 12/24/2018) Active Problems Problem Noted Date HCC (hepatocellular carcinoma) (HCCode) 08/03/2018 Other cirrhosis of liver (HCCode) 04/28/2018 documented as of this encounter (statuses as of 12/24/2018) Social History Tobacco Use Types Packs/Day Years [...] Sign Reading Time Taken Comments Blood Pressure 120/72 12/24/2018 8:25 AM CDT Pulse 68 12/24/2018 8:25 AM CDT Temperature - - Respiratory Rate 16 12/24/2018 8:25 AM CDT Oxygen Saturation - - Inhaled Oxygen Concentration - - Weight 84.1 kg (185 lb 6.4 oz) 12/24/2018 8:25 AM CDT Height 162.6 cm (5' 4") 12/24/2018 8:25 AM CDT Body Mass Index 31.82 12/24/2018 8:25 AM CDT documented in this encounter Patient Instructions Patient InstructionsKiara Bennett MD - 12/24/2018 8:30 AM CDTChange Humalog insulin 75/25 mix to 26 units with breakfast and 14 units with dinner. ONLY take Humalog insulin 75/25 immediately before the meal. Do not take Humalog insulin 75/25 if you skip the meal, or if you are not going to eat right away. Check blood sugars before meals. Bring a record of your blood sugar readings and insulin doses to all follow-up visits. If after 3-4 days, blood sugars during the day are consistently above 200 mg/dl , increase morning Humalog insulin 75/25 by 2 units. Do not increase the dose if you have any blood sugar less than 120 mg/dl If you have any blood sugars less than 90 mg/dl, decrease Humalog insulin 75/25 doses by 2 units Always keep glucose tablets and a snack with you. Your insulin dose may need to change because of changes in level of physical activity, stress, diet,weight, or in case of illness. Return for follow-up in 3 months. Thank you for choosing [facility]. If you have questions about your visit or your treatment, or if you have difficulty scheduling an appointment, please call us at [phone] and leave a message for the nurse Ms. Quezada, or please send us a [employer] message. documented in this encounter Progress Notes Kiara Bennett MD - 12/24/2018 8:30 AM CDT [facility] [address] 8[address]; [address] [facility] [address] Dept: [phone] Dept Chief Complaint: Follow-up Visit - Diabetes (BS this morning 102) History of Present Illness Ms. Carrillo is a 63 y.o. White female who presents for diabetes management. Pt has HepC Cirrhosis c/b HCC currently undergoing liver transplant evaluation, and followed by Dr. Ellison for osteopenia/ osteoporosis. Pt reports diabetes was diagnosed ~ 2008. Pt reports Humalog 75/25 mix 22 units qam and 18 units qpm, and Jardiance 10 mg daily. BG's at home: Pt reports foot pain since ~ 2017. Pt reported lack of complete relief with Gabapentin 600 mg bid sochanged to Lyrica at the last visit and was referred . 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 Before breakfast: 100's Before lunch: up to 300's Before dinner: up to 300's Hypoglycemic episodes: one episode of hypoglycemia in early am with BG of 60 mg/ dl. Levothyroxine was decreased to 137 mcg daily in 07/2018. 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 PCP is Dr. Alireza Valles. No results found for: MICROALBUR, [id number] No results found for: LDLCALC CAD: no Last A1C: Lab Results Component Value Date HGBA1C 7.6 (A) 12/24/2018 Social History Tobacco Use Smoking status: Former Smoker Years: 10.00 Types: Cigarettes Smokeless tobacco: Never Used Substance Use Topics Alcohol use: Not Currently Frequency: Never Drinks per session: 1 or 2 Binge frequency: Never Comment: Stopped Drug use: No Past Medical History: Diagnosis Date Ascites Cholecystitis Cirrhosis (HCCode) DM (diabetes mellitus) (HCCode) Hepatitis C Hypothyroid Lesion of pancreas Liver mass Migraines Pancreatitis Portal hypertension (HCCode) RA (rheumatoid arthritis) (HCCode) Smoker Past Surgical History: Procedure Laterality Date HX CARPAL TUNNEL RELEASE Bilateral HX CATARACT REMOVAL HX SECTION 3 HX UPPER GASTROINTESTINAL ENDOSCOPY Family History Problem Relation Name Age of Onset Heart Attack Mother 70 Other (cardiac bypass) Mother 70 COPD Father Heart Disease Father Leukemia Maternal Uncle Lung Cancer Maternal Uncle Congenital Heart Disease Other Spouse Current Outpatient Medications Medication Sig Dispense Refill carvedilol (COREG) 3.125 MG tablet Take 3.125 mg by mouth daily. Empagliflozin (JARDIANCE) 10 MG TABS Take 10 mg by mouth daily. 90 Tab 3 escitalopram (LEXAPRO) 20 MG tablet Take 20 mg by mouth daily. furosemide (LASIX) 40 MG tablet Take 40 mg by mouth. Insulin Lispro Prot & Lispro (HUMALOG MIX 75/25 KWIKPEN SC) Inject 20 Units into the skin two times daily. levothyroxine (SYNTHROID) 137 MCG tablet Take 137 mcg by mouth daily. 90 Tab 3 Na Sulfate-K Sulfate-Mg Sulf (SUPREP BOWEL PREP KIT) 17.5-3.13-1.6 GM/177ML SOLN [SUPREP] Take as directed. 1 Bottle 0 omeprazole (PRILOSEC) 40 MG capsule Take 40 mg by mouth daily. 0 pregabalin (LYRICA) 50 MG capsule Take 1 Cap by mouth two times daily. 180 Cap 3 spironolactone (ALDACTONE) 25 MG tablet Take 100 mg by mouth daily. tramadol (ULTRAM) 50 MG tablet Take 50 mg by mouth as needed. ursodiol (ACTIGALL) 300 MG capsule Take 300 mg by mouth daily. 2 ZENPEP [id number] units CPEP Take 1 capsule by mouth 3 times daily. No current facility-administered medications for this visit. Allergies Allergen Reactions Sulfa Antibiotics Anaphylaxis Tongue swelling Physical Exam Vitals: 12/24/18 0825 BP: 120/72 BP Location: right arm Patient Position: Sitting Cuff Size: regular Pulse: 68 Resp: 16 Weight: 185 lb 6.4 oz (84.1 kg) Height: 5' 4" (1.626 m) Appear: Alert, well groomed, undistressed Eyes: SLAVA, no icterus, no xanthelasmata or redness HEENT: OP clear Neck: no JVD, no thyromegaly, no thyroid nodules palpated, no acanthosis CVS: regular rate and rhythm, S1, S2 normal, no murmur Lungs: unlabored respirations, no accessory muscle use, CTAB Abdo: soft, non-tender; bowel sounds normal; no masses, no palpable organomegaly Skin: no rashes 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 Assessment and Plan Ira Carrillo is a 63 y.o. female with Type 2 diabetes with complications. 1. Controlled type 2 diabetes with neuropathy (HCCode) AM BG's at goal but pm BG's elevated. Change Humalog insulin 75/25 mix to 26 units with breakfast and 14 units with dinner. Ok to continue Jardiance for now. Discussed diet and exercise recommendations, glycemic targets, strategies to prevent diabetes complications, annual eye exam, hypoglycemia prevention and proper foot care. Recommended regular physical activity as tolerated. Discussed importance of consistency in meal-times and meal amounts. F/U in 3 months. Referred to Neurology for neuropathy since no relief with Neurontin or Lyrica. Reviewed plan of care and instructions with pt and she verbalized her understanding. - POCT HEMOGLOBIN A1C Patient Instructions Change Humalog insulin 75/25 mix to 26 units with breakfast and 14 units with dinner. ONLY take Humalog insulin 75/25 immediately before the meal. Do not take Humalog insulin 75/25 if you skip the meal, or if you are not going to eat right away. Check blood sugars before meals. Bring a record of your blood sugar readings and insulin doses to all follow-up visits. If after 3-4 days, blood sugars during the day are consistently above 200 mg/dl , increase morning Humalog insulin 75/25 by 2 units. Do not increase the dose if you have any blood sugar less than 120 mg/dl If you have any blood sugars less than 90 mg/dl, decrease Humalog insulin 75/25 doses by 2 units Always keep glucose tablets and a snack with you. Your insulin dose may need to change because of changes in level of physical activity, stress, diet,weight, or in case of illness. Return for follow-up in 3 months. Thank you for choosing [facility]. If you have questions about your visit or your treatment, or if you have difficulty scheduling an appointment, please call us at [phone] and leave a message for the nurse Ms. Quezada, or please send us a [employer] message. I spent 25 minutes with this patient and > than 50% of the visit time was spent on counseling redm management. documented in this encounter Plan of Treatment Date Type Specialty Care Team Description 01/06/2019 Appointment Gastroenterology Joe Turpin MD [address] [place], [place] [id number] 02/16/2019 Office Visit Hematology and Oncology Jensen Antony MD [address] [facility] [address] [place] [address] [phone] 02/16/2019 Office Visit Neurology Stephon Lizarraga MD [address] [facility] [address] [place] [address] [phone] 04/29/2019 Office Visit Endocrinology Kiara Bnenett MD [address] [place], [place] [id number] Health Maintenance Due Date Last Done Comments [...] history exists documented as of this encounter Procedures Procedure Name Priority Date/Time Associated Comments Diagnosis POCT HEMOGLOBIN A1C Routine 12/24/2018 8:36 AM Controlled type 2 Results for this CDT diabetes with procedure are in neuropathy (HCCode) the results section. documented in this encounter Results POCT HEMOGLOBIN A1C (12/24/2018 8:36 AM CDT) HEMOGLOBIN A1C 7.6 (A) 4.0 - 5.6 % Specimen Blood documented in this encounter Visit Diagnoses Diagnosis Controlled type 2 diabetes with neuropathy (HCCode) - Primary Type II or unspecified type diabetes mellitus with neurological manifestations , not stated as uncontrolled documented in this encounter Insurance Payer Benefit Plan / Subscriber ID Effective Dates Phone Address Type Group [employer] OPEN ACCESS xxxxxxxxx 2018-Present [address] POS HMO/POS/EPO/PPO - JACK LOPEZ [employer] [id number] documented as of this encounter
--- OUTSIDE RECORDS SUMMARY | 2019-05-24 10:05 | XMS REPORT | Summary of Care ---
:1955 Author Organization [facility] [place] [address] Care Team Providers Name Role Phone Alireza Valles Primary Care Provider Reason for Visit Reason Comments Hepatocellular Carcinoma Encounter Details Date Type Department Care Team Description 05/19/2019 Office Visit [facility] Chevy Dixon MD Carcinoma [facility] [address] 7th Floor, [address] [place] [address] [place] [address] Allergies Active Allergy Reactions Severity Noted Date Comments Sulfa Antibiotics Anaphylaxis High 04/02/2018 Tongue swelling documented as of this encounter (statuses as of 05/22/2019) Medications Medication Sig Dispensed Refills Start Date End Date Status carvedilol (COREG) Take 3.125 mg by 0 Active 3.125 MG tablet mouth daily. escitalopram (LEXAPRO) Take 20 mg by 0 Active 20 MG tablet mouth daily. tramadol (ULTRAM) 50 Take 50 mg by 0 Active MG tablet mouth as needed. ursodiol (ACTIGALL) Take 300 mg by 2 01/14/2018 Active 300 MG capsule mouth daily. spironolactone Take 100 mg by 0 Active (ALDACTONE) 25 MG mouth daily. tablet omeprazole (PRILOSEC) Take 40 mg by 0 01/05/2018 Active 40 MG capsule mouth daily. ZENPEP [id number] Take 1 capsule 0 02/06/2018 Active units CPEP by mouth 3 times daily. Empagliflozin Take 10 mg by 90 Tab 3 07/28/2018 Active (JARDIANCE) 10 MG TABS mouth daily. Insulin Lispro Prot & Inject 20 Units 0 Active Lispro (HUMALOG MIX into the skin 75/25 KWIKPEN SC) daily. pregabalin (LYRICA) 50 Take 1 Cap by 180 Cap 3 09/03/2018 Active MG capsuleIndications: mouth two times Diabetic daily. polyneuropathy associated with type 2 diabetes mellitus (HCCode) furosemide (LASIX) 40 Take 40 mg by 0 07/30/2018 07/30/2019 Active MG tablet mouth. levothyroxine Take 1 Tab by 60 Tab 2 05/02/2019 Active (SYNTHROID) 125 MCG mouth daily. tablet topiramate (TOPAMAX) TAKE 1 TABLET BY 60 Tab 1 05/09/2019 Active 50 MG MOUTH TWICE A tabletIndications: DAY IF TOLERATED Neuropathic pain documented as of this encounter (statuses as of 05/22/2019) Active Problems Problem Noted Date Chronic hepatitis C without hepatic coma (HCCode) 05/22/2019 Chronic alcoholic hepatitis 05/22/2019 HCC (hepatocellular carcinoma) (HCCode) 08/03/2018 Cancer Staging: Clinical: cT1(m), cN0, cM0 - Signed by Zack Guzman MD on 05/22/2019 Other cirrhosis of liver (HCCode) 04/28/2018 documented as of this encounter (statuses as of 05/22/2019) Social History Tobacco Use Types Packs/Day Years Used Date Former Smoker Cigarettes 10 Smokeless Tobacco: Never Used Alcohol Use Drinks/Week oz/Week Comments Not Currently Stopped 05/2018 Alcohol Habits Answer Date Recorded How often [...] Sign Reading Time Taken Comments Blood Pressure 116/59 05/19/2019 8:40 AM CDT Pulse 74 05/19/2019 8:40 AM CDT Temperature 36.7 C (98 F) 05/19/2019 8:40 AM CDT Respiratory Rate - - Oxygen Saturation - - Inhaled Oxygen Concentration - - Weight 77 kg (169 lb 12.8 oz) 05/19/2019 8:40 AM CDT Height 162.6 cm (5' 4") 05/19/2019 8:40 AM CDT Body Mass Index 29.15 05/19/2019 8:40 AM CDT documented in this encounter Patient Instructions Patient InstructionsRain Her CMA - 05/19/2019 9:00 AM CDT [facility] SECTION OF ONCOLOGY/HEMATOLOGY [phone] FAX [phone] Please note that all labs and or imaging results will be discussed at the next office visit unless told otherwise. if a problem occurs after hours please contact our office and have physician educational programming director paged [phone] Patient Instructions: (to be completed before next visit) Return to clinic in [address] Navarrete Please don't hesitate to call if you have any questions or concerns before your appt. TELL US ABOUT YOUR EXPERIENCE You may receive an email or letter from [facility] via our partner, [employer]. This is a survey about your experience today. Your feedback is important to us so we can improve. If any question does not apply to your visit, please leave it blank. Our goal is to ensure you have an exceptional experience at [facility]. If for any reason you cannot rate your experience as very good, please let a member of our staff know so wecan make immediate improvements. Thanks Rain Her CMA documented in this encounter Progress Notes Zack Guzman MD - 05/19/2019 9:00 AM CDT Medical Oncology Visit Zack Guzman MD Medical Oncologist Chevy Ferguson [address] [place], [address] Office: [phone] Referring Provider: Alireza Valles DO MD Primary Care provider: Alireza Valles MD Reason for Consultation: Chief Complaint Patient presents with Hepatocellular Carcinoma HPI: Patient is for follow-up as she is stable she has had a recent TACE done everything went well Cancer related Narrative: HCC (hepatocellular carcinoma) (HCCode) 08/03/2018 Initial Diagnosis HCC (hepatocellular carcinoma) Oncology chronology: 63 y.o.woman with history of chronic pancreatitis secondary to alcohol , HCV and previously failed interferon based therapy in 2010 and finally achieved with Mavyret that was completed in December 2017. MRI from 03/11/2018 showed 2 lesions suspicious for a HCC listed for liver transplantation She has been followed by medical oncologist Dr. Thao until 02/2019 and currently under the care ofDr.Saira Navarrete. On 02/13/2019 with update on MELD below: MELD: MELD-Na score: 7 at 02/11/2019 10:25 AM MELD score: 7 at 02/11/2019 10:25 AM Calculated from: Serum Creatinine: 0.79 mg/dL (Rounded to 1 mg/dL) at 02/11/2019 10:25 AM Serum Sodium: 138 meq/L (Rounded to 137 meq/L) at 02/11/2019 10:25 AM Total Bilirubin: 0.8 mg/dL (Rounded to 1 mg/dL) at 02/11/2019 10:25 AM INR(ratio): 1.1 at 02/11/2019 10:25 AM Age: 63 years Initial Consult Date for OLT : 03/11/18 AFP: 6.8 () Highest: 15.8 (05/26/18) Liver disease complications As 05/19/2019 Ascites in 2018 01/14/2018 EGD normal esophagus, no strictures, dilation performed. Antral gastritis, actively bleeding angiectasiain duodenum s/p APC. 5 mm polyp. Path: reflux esophagitis, chemical reactive gastropathy, negative for H pylori. Negative for intestinal metaplasia, dysplasia and malignancy. 02/11/19 MRI Abdomen: Cirrhotic liver with stable segment 5 previously treated HCC and stable segment 4 HCC. 11/05/18 MRI abdomen: Cirrhosis with splenomegaly. Interval chemoembolization of segment V lesion with 0.7 cm of residual.Unchanged 1.8 cm HCC. Several additional arterially enhancing indeterminate lesions. 0.7 cm cystic lesion in uncinate process, likely IPMN. 07/16/18 MRI abdomen: 1.6 cm lesion in segment IV/V with enhancement, washout, and capsule. 1.6 cm in segment V with enhancement, washout, and capsule. MRI abdomen 03/11/18: Cirrhosis with evidence of portal hypertension. 1.6 cm and 1 cm lesions in segments IV/V and V, respectively, are suspicious for hepatocellular carcinoma. Additional arterially enhancing foci are indeterminate. Subcentimeter cystic lesion in the pancreatic tail. Cholelithiasis. 02/23/19 CT chest ARIAN 11/05/18: ARIAN 06/02/18: ARIAN 02/11/2019: NM Bone Scan: ARIAN 06/02/2018 ARIAN EUS 03/11/18 Erythematous mucosa in the gastric body and antrum, two cystic lesions were seen in the pancreatic body consistent with IPMN Cardiac work up 06/03/18: Suitable candidate for OLT - moderate risk patient Colonoscopy: 01/06/19: One 50 mm polyp removed (path- tubular adenoma) 07/2018: 1 large adenomatous polyp (unable to excise completely). TACE Doxorubicin 100 mg 08/30/2018: Performed on right hepatic lobe lesions segment 5 (Doxo) 04/15/2019 : 2 tumors in the left lobe of the liver (Doxo) 04/15/2019 CT abd WO contrast Comparison to MRI from 02/11/2019 HEPATOBILIARY: Nodular, cirrhotic liver. The liver masses were better evaluated on the prior MRI. When of the exophytic lesions in segment III measures 1.1 cm and may have mildly increased in size. A calcification in segment VIII measures 0.2 cm and is most likely a calcified granuloma. Multiple gallstones layering the gallbladder. No gallbladder distention or wall thickening. SPLEEN: 16.2 cm splenomegaly. Past Medical History: Past Medical History: Diagnosis Date Ascites Cholecystitis Cirrhosis (HCCode) DM (diabetes mellitus) (HCCode) Hepatitis C Hypothyroid Lesion of pancreas Liver mass Migraines Pancreatitis Portal hypertension (HCCode) RA (rheumatoid arthritis) (HCCode) Smoker Past Surgical History: Past Surgical History: Procedure Laterality Date HX CARPAL TUNNEL RELEASE Bilateral HX CATARACT REMOVAL HX SECTION 3 HX UPPER GASTROINTESTINAL ENDOSCOPY Social history: Social History Socioeconomic History Marital status: Spouse name: Not on file Number of children: 3 Years of education: Not on file Highest education level: Not on file 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 Social Needs Financial resource strain: Not on file Food insecurity: Worry: Not on file Inability: Not on file Transportation needs: Medical: Not on file Non-medical: Not on file Tobacco Use Smoking status: Former Smoker Years: 10.00 Types: Cigarettes Smokeless tobacco: Never Used Substance and Sexual Activity Alcohol use: Not Currently Frequency: Never Drinks per session: 1 or 2 Binge frequency: Never Comment: Stopped 05/2018 Drug use: No Sexual activity: Not on file Lifestyle Physical activity: Days per week: Not on file Minutes per session: Not on file Stress: Not on file Relationships Social connections: Talks on phone: Not on file Gets together: Not on file Attends advent service: Not on file Active member of [...] file Social History Narrative 3 kids Family history: Family History Problem Relation Name Age of Onset Heart Attack Mother 70 Other (cardiac bypass) Mother 70 COPD Father Heart Disease Father Leukemia Maternal Uncle Lung Cancer Maternal Uncle Congenital Heart Disease Other Spouse Allergies Allergen Reactions Sulfa Antibiotics Anaphylaxis Tongue swelling Current Outpatient Medications Medication Sig Dispense Refill [...] SC) Inject 20 Units into the skin daily. levothyroxine (SYNTHROID) 125 MCG tablet Take 1 Tab by mouth daily. 60 Tab 2 omeprazole (PRILOSEC) 40 MG capsule Take 40 mg by mouth daily. 0 pregabalin (LYRICA) 50 MG capsule Take 1 Cap by mouth two times daily. 180 Cap 3 spironolactone (ALDACTONE) 25 MG tablet Take 100 mg by mouth daily. topiramate (TOPAMAX) 50 MG tablet TAKE 1 TABLET BY MOUTH TWICE A DAY IF TOLERATED 60 Tab 1 tramadol (ULTRAM) 50 MG tablet Take 50 mg by mouth as needed. ursodiol (ACTIGALL) 300 MG capsule Take 300 mg by mouth daily. 2 ZENPEP [id number] units CPEP Take 1 capsule by mouth 3 times daily. No current facility-administered medications for this visit. Review of Systems Constitutional: Negative for fever. HENT: Negative for hearing loss. Eyes: Negative for blurred vision. Respiratory: Negative for cough. Cardiovascular: Positive for leg swelling. Negative for chest pain. Mild Gastrointestinal: Negative for heartburn. Genitourinary: Negative for dysuria. Skin: Negative for itching and rash. Neurological: Negative for dizziness. Endo/Heme/Allergies: Does not bruise/bleed easily. Physical Exam: Vital Signs Height: 5' 4" (162.6 cm) Weight - Scale: 169 lb 12.8 oz (77 kg) Temp: 98 F (36.7 C) Temp Source: Oral Pulse: 74 Resting Heart Rate: 74 BP: 116/59 Patient Position: Sitting Cuff Size: regular BP Location: left arm Oxygen Therapy O2 Sat: 98 % O2 Flow Rate: Room Air Height and Weight BSA (Calculated - sq m): 1.86 sq meters BMI (Calculated): 29.2 Predicted Body Weight: 120.59 Body surface area is 1.86 meters squared. Wt Readings from Last 3 Encounters: 05/19/19 169 lb 12.8 oz (77 kg) 04/29/19 170 lb (77.1 kg) 02/16/19 194 lb (88 kg) Physical Exam HENT: Head: Normocephalic. Nose: Nose normal. Eyes: General: No scleral icterus. Pupils: Pupils are equal, round, and reactive to light. Neck: Musculoskeletal: Normal range of motion. Cardiovascular: Rate and Rhythm: Normal rate. Comments: Bilateral mild leg edema Pulmonary: Effort: Pulmonary effort is normal. Abdominal: General: Abdomen is flat. Musculoskeletal: Normal range of motion. Skin: General: Skin is warm. Neurological: Mental Status: She is alert. Labs: Lab Results Component Value Date WBC 4.6 02/11/2019 HGB 10.4 (L) 02/11/2019 HCT 34.1 02/11/2019 MCV 80.8 02/11/2019 PLT 83 (L) 02/11/2019 Lab Results Component Value Date ALT 16 04/15/2019 AST 20 04/15/2019 GGT 59 05/26/2018 ALKPHOS 97 04/15/2019 BILITOT 1.0 04/15/2019 Lab Results Component Value Date CREATININE 0.94 04/15/2019 BUN 23 (H) 04/15/2019 NA 136 04/15/2019 K 3.8 04/15/2019 CL 105 04/15/2019 CO2 23 04/15/2019 Lab Results Component Value Date PROTIME 14.8 (H) 04/15/2019 INR 1.2 04/15/2019 PTT 31.1 04/15/2019 Diagnosis: ICD-10-CM 1. HCC (hepatocellular carcinoma) (HCCode) C22.0 2. Other cirrhosis of liver (HCCode) K74.69 3. Chronic hepatitis C without hepatic coma (HCCode) B18.2 4. Chronic alcoholic hepatitis K70.10 Assessment and plan: Ira Carrillo is a 63 y.o. patient diagnosed with HCC (hepatocellular carcinoma) (HCCode) Cancer Staging HCC (hepatocellular carcinoma) (HCCode) Staging form: Liver, AJCC 8th Edition - Clinical: cT1(m), cN0, cM0 - Signed by Zack Guzman MD on 05/22/2019 Status: Date Date Date Date OLT candidate 05/19/2019 Child rao A5 BCLC A Vascular Invasion no AFP 6.8 (02/2019) ECOG 1 63-year-old female With alcohol and HCV related cirrhosis with 2 image confirmed HCC lesions status post TACE twice last one in April 2019 and she is here for follow-up She has stayed stable and without complications she still remains child Rao A and Germain stagingA. She remains to be a good candidate for liver transplantation. We will continue surveillance, returnto clinic in 3 months Follow-up with Dr. Navarrete. We have ordered the below: none Zack Guzman MD [facility] # [id number] Hematology and Medical Oncology Direct Chill Casting Operatorpaper gluing operator Chevy Ferguson [facility] Office Number: [phone] Fax number: [phone] signed by Zack Guzman MD at 2019 12:18 PM CDTdocumented in this encounter Plan of Treatment Date Type Specialty Care Team Description 08/05/2019 Office Visit Endocrinology Kiara Bennett MD [address] [place] [address] 08/19/2019 Office Visit Hematology and Oncology Zack Guzman MD [address] [facility] [address] [place] [address] [phone] Health Maintenance Due Date Last Done Comments TETANUS SHOT (ADULT) 1968 ANNUAL DIABETIC RETINOPATHY 10/19/1971 SCREENING BMI FOLLOW UP PLAN 10/19/1971 FALL SCREEN 2018 OSTEOPOROSIS SCREENING 2018 06/02/2018 PNEUMOVAX >=65 (PPSV23) 2018 PREVNAR >=65 (PCV13) 2018 MAMMOGRAM ANNUAL 05/27/2019 05/26/2018, 05/26/2018 A1C TESTING EVERY 6 MONTHS 10/28/2019 04/29/2019, 12/24/2018, 09/03/2018, Additional history exists ANNUAL DIABETIC FOOT EXAM 04/29/2020 04/29/2019, 12/24/2018, 09/03/2018 COLON CANCER SCREENIN01/06/2029 01/06/2019 COLONOSCOPY HEPATITIS C SCREENING Completed 05/26/2018, 03/11/2018 FLU VACCINE > 6 MONTHS Completed 12/25/2018, 11/29/2017 documented as of this encounter Results Not on filedocumented in this encounter Visit Diagnoses Diagnosis HCC (hepatocellular carcinoma) (HCCode) - Primary Malignant neoplasm of liver, primary Other cirrhosis of liver (HCCode) Chronic hepatitis C without hepatic coma (HCCode) Chronic alcoholic hepatitis Acute alcoholic hepatitis documented in this encounter Insurance Payer Benefit Plan / Subscriber ID Effective Dates Phone Address Type Group [employer] OPEN ACCESS xxxxxxxxx 2018-Present [address] POS HMO/POS/EPO/PPO - JACK LOPEZ [employer] [id number] documented as of this encounter
--- OUTSIDE RECORDS SUMMARY | 2019-05-24 10:05 | XMS REPORT | Summary of Care ---
:1955 Author Organization [facility] [place] [address] Care Team Providers Name Role Phone Alireza Valles Primary Care Provider Reason for Visit Reason Comments Follow Up Encounter Details Date Type Department Care Team Description 11/03/2018 Office Visit [facility] Jensen Antony, Follow Up Medicine Hematology and MD Oncology [address] [facility] [address] [facility] [address], [address] Floor, [address] [place] [address] [place] [address] Allergies Active Allergy Reactions Severity Noted Date Comments Sulfa Antibiotics Anaphylaxis High 04/02/2018 Tongue swelling documented as of this encounter (statuses as of 11/06/2018) Medications Medication Sig Dispensed Refills Start Date [...] Active 40 MG capsule mouth daily. ZENPEP [id number] Take 1 capsule 0 02/06/2018 Active units [...] as of this encounter (statuses as of 11/06/2018) Active Problems Problem Noted Date HCC (hepatocellular carcinoma) 08/03/2018 Other cirrhosis of liver 04/28/2018 documented as of this encounter (statuses as of 11/06/2018) Social History Tobacco Use Types Packs/Day Years [...] Sign Reading Time Taken Comments Blood Pressure 117/70 11/03/2018 11:13 AM CDT Pulse 74 11/03/2018 11:13 AM CDT Temperature 36.8 C (98.2 F) 11/03/2018 11:13 AM CDT Respiratory Rate - - Oxygen Saturation - - Inhaled Oxygen Concentration - - Weight 83.2 kg (183 lb 6.4 oz) 11/03/2018 11:13 AM CDT Height 162.6 cm (5' 4") 11/03/2018 11:13 AM CDT Body Mass Index 31.48 11/03/2018 11:13 AM CDT documented in this encounter Patient Instructions Patient InstructionsJensen Antony MD - 11/03/2018 11:30 AM CDT [facility] SECTION OF ONCOLOGY/HEMATOLOGY [phone] FAX [phone] Please note that all labs and or imaging results will be discussed at the next office visit unless told otherwise. If a problem occurs after normal business hours, over the weekend, or on a holiday, please contact our office at [phone] and have the physician instrumentation instructor paged. Patient Instructions: (to be completed before next visit) - hepatology team will review your imaging Please don't hesitate to call or to send a [facility] message if you have any questions or concerns before your next visit. [employer] messaging should only be used for non-urgent questions. MyChart is notchecked after normal business hours, nor on weekends or holidays. Thank you, Jensen Antony MD documented in this encounter Progress Notes Jensen Antony MD - 11/03/2018 11:30 AM CDT Oncology Consult Reason for Consultation:Management of HCC History of Present Illness: 63 y.o.woman has been diagnosed per MRI with 2 foci of HCC. She is established for OLT consideration and is so listed. She underwent TACE treatment on 08/30/18 and has followup imaging scheduled for . Only one lesion was treated, as the other was not visualized. On 11/03/18, the patient presented for follow up. She does not have complaints of pain, weakness, itchiness, jaundice/icterus, or other sick symptoms. She felt diminished for 2 days after the TACE and is since recovered. Review of Systems: Gen : No fevers, chills, sweats, fatigue, weakness. HENT : No sore throat or mouth sores. No runny nose, sinus congestion, or earache. Eyes : See HPI Neck : No new lumps or masses. Resp : No shortness of breath or wheezing. No cough or sputum. Cardio : No chest pain. No palpitations. No leg swelling. GI : See HPI : No dysuria or problems with urination. MS : No bone pain or joint stiffness. No arm swelling or edema. Skin : See HPI Neuro : No focal weaknes or altered sensation. Heme : No bleeding or easy bruisability. No adenopathy. Psych : No symptoms of depression or anxiety. All other systems reported as negative on ROS. Past Medical History: Past Medical History: Diagnosis Date Ascites Cholecystitis Cirrhosis DM (diabetes mellitus) Hepatitis C Hypothyroid Lesion of pancreas Liver mass Migraines Pancreatitis Portal hypertension RA (rheumatoid arthritis) Smoker Past Surgical History: Past Surgical History: Procedure Laterality Date HX CARPAL TUNNEL RELEASE Bilateral HX CATARACT REMOVAL HX SECTION 3 HX UPPER GASTROINTESTINAL ENDOSCOPY Social history: Social History Socioeconomic History Marital status: Spouse name: Not on file Number of children: 3 Years of education: Not on file Highest education level: Not on file 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 History Occupation: [employer] Social Needs Financial resource strain: Not on [...] file Gets together: Not on file Attends lutheran service: Not on file Active member of [...] mcg by mouth daily. 90 Tab 3 omeprazole (PRILOSEC) 40 MG capsule Take 40 [...] 300 mg by mouth daily. 2 ZENPEP [id number] units CPEP Take 1 capsule by mouth 3 times daily. No current facility-administered medications for this visit. Physical Exam: Vital Signs Height: 5' 4" (162.6 cm) Weight - Scale: 183 lb 6.4 oz (83.2 kg) Temp: 98.2 F (36.8 C) Temp Source: Oral Pulse: 74 Resting Heart Rate: 74 BP: 117/70 Patient Position: Sitting Cuff Size: regular BP Location: left arm Oxygen Therapy O2 Sat: 97 % O2 Flow Rate: Room Air Height and Weight BSA (Calculated - sq m): 1.94 sq meters BMI (Calculated): 31.5 Predicted Body Weight: 120.59 Body surface area is 1.94 meters squared. Wt Readings from Last 3 Encounters: 11/03/18 183 lb 6.4 oz (83.2 kg) 09/03/18 172 lb (78 kg) 08/03/18 173 lb 3.2 oz (78.6 kg) ECO General: Alert, well appearing, no acute distress. Abdomen: Bowel sounds are normoactive. S/NT/ND. No palpable masses or organomegally Eyes : Conjunctivae and lids normal. The sclera is clear and anicteric Heart : Regular rate and rhythm, normal S1 and S2. No murmurs, gallops, or rubs. No extra sounds. Lungs : Normal respiratory effort. There is normal air entry with normal breath sounds. No rales, rhonchi, rubs or wheezes. Extr: No varicosities or ulceration. No clubbing, cyanosis, or edema. Skin : Warm and dry No rashes, lesions or ulcerations. Labs: All laboratory, radiology, and pathology studies have been reviewed. Assessment 63 y.o. year old woman has HCC limited to the liver and this was treated in August via TACE. The concepts of definitive treatment with OLT, as well as the roles for local and systemic treatments, were summarized with the patient again today. Plan HCC - follow up with imaging as is scheduled - reserve systemic therapy This diagnosis and rationale for treatment were discussed with the patient and with her to their apparent understanding and agreement. She is encouraged to call with questions or concerns. Jensen Antony MD, [facility] #[id number] Production Team Leadersheet metal operator [facility] documented in this encounter Plan of Treatment Date Type Specialty Care Team Description 12/24/2018 Office Visit Endocrinology Kiara Bennett MD [address] [facility] [address] [place] [address] [phone] 02/16/2019 Office Visit Hematology and Oncology Jensen Antony MD [address] [facility] 7th Floor, [address] [place] [address] [phone] 02/16/2019 Office Visit Neurology Stephon Lizarraga MD [address] [facility] [address] [place] [address] [phone] Health Maintenance Due Date Last Done Comments [...] encounter Visit Diagnoses Diagnosis HCC (hepatocellular carcinoma) - Primary Malignant neoplasm of liver, primary documented in this encounter Insurance Payer Benefit Plan / Subscriber ID Effective Dates Phone Address Type Group [employer] OPEN ACCESS xxxxxxxxx 2018-Present [address] POS HMO/POS/EPO/PPO - JACK LOPEZ [employer] [id number] documented as of this encounter
--- OUTSIDE RECORDS SUMMARY | 2019-05-24 10:05 | XMS REPORT | Summary of Care ---
:1955 Author Organization [facility] [place] [address] Care Team Providers Name Role Phone Alireza Valles Primary Care Provider Reason for Visit Reason Comments Follow-up Visit - Diabetes Encounter Details Date Type Department Care Team Description 04/29/2019 Office Visit [facility] Kiara Bennett, Follow-up Visit - Medicine Diabetes Endocrinology [address] [facility] [address] [facility] Floor; [address] [place] [address] [place] [phone] [id number] [phone] Allergies Active Allergy Reactions Severity Noted Date Comments Sulfa Antibiotics Anaphylaxis High 04/02/2018 Tongue swelling documented as of this encounter (statuses as of 04/29/2019) Medications Medication Sig Dispensed Refills Start Date [...] Active 40 MG capsule mouth daily. ZENPEP [id number] Take 1 capsule 0 02/06/2018 Active units [...] 0 07/30/2018 07/30/2019 Active MG tablet mouth. topiramate (TOPAMAX) TAKE 1 TABLET BY 60 Tab 1 04/08/2019 Active 50 MG MOUTH TWICE A tabletIndications: DAY IF TOLERATED Neuropathic pain documented as of this encounter (statuses as of 04/29/2019) Active Problems Problem Noted Date HCC (hepatocellular carcinoma) (HCCode) 08/03/2018 Other cirrhosis of liver (HCCode) 04/28/2018 documented as of this encounter (statuses as of 04/29/2019) Social History Tobacco Use Types Packs/Day Years [...] Sign Reading Time Taken Comments Blood Pressure 110/58 04/29/2019 10:12 AM DATA REPORTING ANALYST Pulse 72 04/29/2019 10:12 AM DATA REPORTING ANALYST Temperature - - Respiratory Rate - - Oxygen Saturation - - Inhaled Oxygen Concentration - - Weight 77.1 kg (170 lb) 04/29/2019 10:12 AM DATA REPORTING ANALYST Height 162.6 cm (5' 4") 04/29/2019 10:12 AM DATA REPORTING ANALYST Body Mass Index 29.18 04/29/2019 10:12 AM DATA REPORTING ANALYST documented in this encounter Patient Instructions Patient InstructionsKiara Bennett MD - 04/29/2019 10:30 AM CSTPlease call our office if you do not receive results of your tests from our clinic within 2 weeks. If you have any blood sugars less than 90 mg/dl, decrease Humalog insulin 75/25 doses further as youhave done in the past. Always keep glucose tablets and a snack with you. Your insulin dose may need to change because of changes in level of physical activity, stress, diet,weight, or in case of illness. Return for follow-up in 3 months. Thank you for choosing [facility]. If you have questions about your visit or your treatment, or if you have difficulty scheduling an appointment, please call us at [phone] and leave a message for the nurse, or please send us a [employer] message. REPORTING ANALYST documented in this encounter Progress Notes Kiara Bennett MD - 04/29/2019 10:30 AM CST [facility] [address] [facility] 8[address]; [address] [facility] [address] Dept: [phone] Dept Chief Complaint: Follow-up Visit - Diabetes History of Present Illness Ms. Carrillo is a 63 y.o. White female who presents for diabetes management. Pt has HepC Cirrhosis c/b HCC currently undergoing liver transplant evaluation, and followed by Dr. Ellison for osteopenia/ osteoporosis. Pt reports diabetes was diagnosed ~ 2008. Checks BG 2-3 times a day. Pt reports taking Humalog 75/25 mix 20 units qam and 0 units qpm, and Jardiance 10 mg daily. Self decreased insulin doses. BG's at home: mostly in 100's. Hypoglycemic episodes: none since pt stopped pm dose of insulin. H/O foot pain since ~ 2017. Pt reported lack of complete relief with Gabapentin 600 mg bid so changed to Lyrica, then changed to Topiramate by Neurology. 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 PCP is Dr. Alireza Valles. No results found for: MICROALBUR, [id number] No results found for: LDLCALC CAD: no Last A1C: Lab Results Component Value Date HGBA1C 6.3 (A) 04/29/2019 Social History Tobacco Use Smoking status: Former Smoker Years: 10.00 Types: Cigarettes Smokeless tobacco: Never Used Substance Use Topics Alcohol use: Not Currently Frequency: Never Drinks per session: 1 or 2 Binge frequency: Never Comment: Stopped 05/2018 Drug use: No Past Medical History: Diagnosis [...] Units into the skin daily. levothyroxine (SYNTHROID) 137 MCG tablet Take [...] 300 mg by mouth daily. 2 ZENPEP [id number] units CPEP Take 1 capsule by mouth 3 times daily. No current facility-administered medications for this visit. 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 Continue Humalog insulin 75/25 mix 20 units with breakfast. Ok to continue Jardiance for now. Discussed [...] verbalized her understanding. - POCT HEMOGLOBIN A1C - MICROALBUMIN/CREAT URINE RATIO; Future 2. Acquired hypothyroidism Levothyroxine was decreased to 137 mcg daily in 07/2018. Check TFT's - TSH; Future - T4 FREE; Future Patient Instructions Please call our office if you do not receive results of your tests from our clinic within 2 weeks. If you have any blood sugars less than 90 mg/dl, decrease Humalog insulin 75/25 doses further as youhave done in the past. Always keep glucose tablets and a snack with you. Your insulin dose may need to change because of changes in level of physical activity, stress, diet,weight, or in case of illness. Return for follow-up in 3 months. Thank you for choosing [facility]. If you have questions about your visit or your treatment, or if you have difficulty scheduling an appointment, please call us at [phone] and leave a message for the nurse, or please send us a [employer] message. documented in this encounter Plan of Treatment Date Type Specialty Care Team Description 05/19/2019 Office Visit Hematology and Oncology Zack Guzman MD [address] [facility] [address] [place] [address] 08/05/2019 Office Visit Endocrinology Kiara Bennett MD [address] [facility] [address] [place] [address] Name Type Priority Associated Diagnoses Order Schedule TSH Lab Routine Acquired hypothyroidism 1 Occurrences starting 04/29/2019 until 05/03/2020 T4 FREE Lab Routine Acquired hypothyroidism 1 Occurrences starting 04/29/2019 until 05/03/2020 MICROALBUMIN/CREAT Lab Routine Controlled type 2 diabetes 1 Occurrences starting URINE RATIO with neuropathy (HCCode) 04/29/2019 until 05/03/2020 Health Maintenance Due Date Last Done Comments TETANUS SHOT (ADULT) 1968 ANNUAL DIABETIC RETINOPATHY SCREENING 10/19/1971 BMI FOLLOW UP PLAN 10/19/1971 FALL SCREEN 2018 OSTEOPOROSIS SCREENING 2018 06/02/2018 PNEUMOVAX >=65 (PPSV23) 2018 PREVNAR >=65 (PCV13) 2018 MAMMOGRAM ANNUAL 05/27/2019 05/26/2018, 05/26/2018 A1C TESTING EVERY 6 MONTHS 06/25/2019 12/24/2018, 09/03/2018, 05/26/2018 ANNUAL DIABETIC FOOT EXAM 12/25/2019 12/24/2018, 09/03/2018 COLON CANCER SCREENING: COLONOSCOPY 01/06/2029 01/06/2019 HEPATITIS C SCREENING Completed 05/26/2018, 03/11/2018 FLU VACCINE > 6 MONTHS Completed 12/25/2018, 11/29/2017 documented as of this encounter Procedures Procedure Name Priority Date/Time Associated Comments Diagnosis POCT HEMOGLOBIN A1C Routine 04/29/2019 10:25 AM Controlled type 2 Results for this DATA REPORTING ANALYST diabetes with procedure are in neuropathy (HCCode) the results section. documented in this encounter Results POCT HEMOGLOBIN A1C (04/29/2019 10:25 AM DATA REPORTING ANALYST) HEMOGLOBIN A1C 6.3 (A) 4.0 - 5.6 % Specimen Blood documented in this encounter Visit Diagnoses Diagnosis Controlled type 2 diabetes with neuropathy (HCCode) - Primary Type II or unspecified type diabetes mellitus with neurological manifestations , not stated as uncontrolled Acquired hypothyroidism Unspecified hypothyroidism documented in this encounter Insurance Payer Benefit Plan / Subscriber ID Effective Dates Phone Address Type Group [employer] OPEN ACCESS xxxxxxxxx 2018-Present [address] POS HMO/POS/EPO/PPO - [place] [employer] [id number] [phone] [id number] (Work) documented as of this encounter
--- NOTE | 2019-05-24 11:11 | RAD REPORT ---
EXAM DESCRIPTION: RAD - Chest Single View - 05/24/2019 11:05 am CLINICAL HISTORY: DYSPNEA Chest pain. COMPARISON: CHEST SINGLE VIEW dated 10/13/2013; CHEST SINGLE VIEW dated 05/17/2013; CHEST PA AND LAT 2 VIEW dated 05/22/2012; CHEST PA AND LAT 2 VIEW dated 04/28/2010 FINDINGS: Portable technique limits examination quality. The lungs are grossly clear. The heart is normal in size. No displaced fractures. IMPRESSION: No acute intrathoracic process suspected.
[2019-05-24 11:27] LABS: Arterial Blood Carboxyhemoglob 1.6 % (0-1.5); Blood Gas Oxyhemoglobin 97.1 % (94-97); Blood O2 Saturation 99.3 % (92-98.5)
[2019-05-24] MEDS ORDERED: NA CHLORIDE 0.9% 1,000 ML ONE (11:36)
[2019-05-24 11:43] LABS: Absolute Lymphocytes (CBC) 1.2 K/uL (0.7-4.9); Basophils % 0.6 % (0-1.3); Hematocrit 36.1 % (36.0-45.0); Lymphocytes % 14.7 % (15.3-44.8); MPV 8.4 fL (7.6-11.3); RBC Red Blood Cell Count 4.57 M/uL (3.86-4.86)
[2019-05-24 11:47] LABS: Protime INR 1.1
[2019-05-24 12:00] LABS: ALT/SGPT 22 U/L (12-78); AST/SGOT 16 U/L (15-37); Albumin 3.5 g/dL (3.4-5.0); Alkaline Phosphatase 141 U/L (45-117); BUN Blood Urea Nitrogen 23 mg/dL (7-18); Bicarbonate 24 mmol/L (21-32); Bilirubin Direct 0.2 mg/dL (0-0.2); Bilirubin Total 0.7 mg/dL (0.2-1.0); Glucose Level 92 mg/dL (74-106); Lipase 111 U/L (73-393); Magnesium 2.4 mg/dL (1.8-2.4); NT PRO-BNP 137 pg/mL (<125); Potassium 3.9 mmol/L (3.5-5.1); Protein, Total 7.9 g/dL (6.4-8.2); Sodium Level 137 mmol/L (136-145); Troponin (Emerg Dept Use Only) < 0.02 ng/mL (0.0-0.045)
--- NOTE | 2019-05-24 12:35 | RAD REPORT ---
EXAM DESCRIPTION: CT - Chest For Pe Angio - 05/24/2019 12:14 pm CLINICAL HISTORY: Dyspnea;SOB COMPARISON: Chest Single View dated 05/24/2019 TECHNIQUE: Dynamically enhanced 3 mm thick images of the chest were obtained during administration o f approximately 150mL Isovue 370 IV contrast. Coronal and oblique MIP reconstruction images were gene rated and reviewed. Exam utilizes a protocol to evaluate the pulmonary arterial tree. All CT scans are performed using dose optimization technique as appropriate and may include automated exposure control or mA/KV adjustment according to patient size. FINDINGS: No pulmonary emboli are identified. The aorta as imaged shows no acute or suspicious finding. No pericardial thickening or effusion. No infiltrate or mass in the lung parenchyma. No pleural effusion or pleural thickening. No mediastinal or hilar suspicious masses. No chest wall masses or abnormal axillary lymphadenopathy. Limited imaging of the upper abdomen shows prominent left lobe of the liver. There is prominent nodul arity of the liver capsule contour. Multiple stones are seen in the gallbladder which is only partial ly imaged. No abnormal liver lesion identified on limited assessment. IMPRESSION: No pulmonary emboli identified. No aortic abnormality. No acute lung parenchymal process. Cirrhotic liver changes are present but only partially imaged. Cholelithiasis is evident also only pa rtially imaged.
--- NOTE | 2019-05-24 13:03 | EKG ---
Test Date: 2019-05-24 Test Time: 10:51:49 Inside Contractor Sales: GRETCHEN MEASUREMENT RESULTS: Intervals: Rate: 76 OR: 150 QRSD: 88 QT: 412 QTc: 463 [place]: P: 76 OR: 150 QRS: 71 T: 75 INTERPRETIVE STATEMENTS: Normal sinus rhythm Cannot rule out Anterior infarct, age undetermined Abnormal ECG Compared to ECG 10/13/2013 10:10:06 Myocardial infarct finding now present Electronically Signed On 05-24-19 13:03:09 CDT by Abdirizak Reyes
--- NOTE | 2019-05-24 13:26 | EDPHYS ---
Physician Documentation [facility] Name: Veronika Carrillo Age: 63 yrs Sex: Female : 1955 Arrival Date: 05/24/2019 Time: 10:00 Bed 14 Private MD: Alireza Valles H ED Physician Fabian Yoon HPI: 05/23 10:56 This 63 yrs old Female presents to ER via Ambulatory with complaints of loren Shortness Of Breath. 10:56 The patient has shortness of breath at rest, with light activity. Onset: The loren symptoms/episode began/occurred 2 day(s) ago. Duration: The symptoms are continuous, and are steadily getting worse. The patient's shortness of breath is aggravated by exertion, light activity, supine position. Associated signs and symptoms: The patient has no apparent associated signs or symptoms. Severity of symptoms: At their worst the symptoms were mild moderate in the emergency department the symptoms are unchanged. The patient has not experienced similar symptoms in the past. Historical: - Allergies: 10:13 Sulfa (Sulfonamide Antibiotics); ca1 - PMHx: 10:13 liver Cancer; Cyst on pancreas; Hep C; Pancreatitis; Cirrhosis; Diabetes - NIDDM; ca1 Rheumatoid Arthritis; - PSHx: 10:13 ; hand surgery; ca1 - Immunization history:: Adult Immunizations up to date, Flu vaccine is up to date. - Social history:: Smoking status: Patient/guardian denies using tobacco, the patient reports quitting approximately 1 years ago. - Family history:: not pertinent. ROS: 10:56 Constitutional: Negative for fever, chills, and weight loss, Eyes: Negative for injury, loren pain, redness, and discharge, ENT: Negative for injury, pain, and discharge, Neck: Negative for injury, pain, and swelling, Cardiovascular: Negative for chest pain, palpitations, and edema, Abdomen/GI: Negative for abdominal pain, nausea, vomiting, diarrhea, and constipation, Back: Negative for injury and pain, : Negative for injury, bleeding, discharge, and swelling, MS/Extremity: Negative for injury and deformity, Skin: Negative for injury, rash, and discoloration, Neuro: Negative for headache, weakness, numbness, tingling, and seizure, Psych: Negative for depression, anxiety, suicide ideation, homicidal ideation, and hallucinations, Allergy/Immunology: Negative for hives, rash, and allergies, Endocrine: Negative for neck swelling, polydipsia, polyuria, polyphagia, and marked weight changes. 10:56 Respiratory: Positive for cough, shortness of breath, at rest. Exam: 10:56 Constitutional: This is a well developed, well nourished patient who is awake, alert, loren and in no acute distress. Head/Face: Normocephalic, atraumatic. Eyes: Pupils equal round and reactive to light, extra-ocular motions intact. Lids and lashes normal. Conjunctiva and sclera are non-icteric and not injected. Cornea within normal limits. Periorbital areas with no swelling, redness, or edema. ENT: Nares patent. No nasal discharge, no septal abnormalities noted. Tympanic membranes are normal and external auditory canals are clear. Oropharynx with no redness, swelling, or masses, exudates, or evidence of obstruction, uvula midline. Mucous membranes moist. Neck: Trachea midline, no thyromegaly or masses palpated, and no cervical lymphadenopathy. Supple, full range of motion without nuchal rigidity, or vertebral point tenderness. No Meningismus. Chest/axilla: Normal chest wall appearance and motion. Nontender with no deformity. No lesions are appreciated. Cardiovascular: Regular rate and rhythm with a normal S1 and S2. No gallops, murmurs, or rubs. Normal PMI, no JVD. No pulse deficits. Respiratory: Lungs have equal breath sounds bilaterally, clear to auscultation and percussion. No rales, rhonchi or wheezes noted. No increased work of breathing, no retractions or nasal flaring. Abdomen/GI: Soft, non-tender, with normal bowel sounds. No distension or tympany. No guarding or rebound. No evidence of tenderness throughout. Back: No spinal tenderness. No costovertebral tenderness. Full range of motion. Female : Normal external genitalia. Skin: Warm, dry with normal turgor. Normal color with no rashes, no lesions, and no evidence of cellulitis. MS/ Extremity: Pulses equal, no cyanosis. Neurovascular intact. Full, normal range of motion. Neuro: Awake and alert, GCS 15, oriented to person, place, time, and situation. Cranial nerves II-XII grossly intact. Motor strength 5/5 in all extremities. Sensory grossly intact. Cerebellar exam normal. Normal gait. Psych: Awake, alert, with orientation to person, place and time. Behavior, mood, and affect are within normal limits. 10:56 Musculoskeletal/extremity: DVT Exam: No signs of deep vein thrombosis. no pain, no swelling, no tenderness, negative Homans' sign noted on exam, no appreciated bluish discoloration, no erythema, no increased warmth. Vital Signs: 10:08 BP 147 / 77; Pulse 84; Resp 18; Temp 97.4(TE); Pulse Ox 100% on R/A; Weight 77.11 kg ca1 (R); Height 5 ft. 5 in. (165.10 cm) (R); 11:14 BP 126 / 62; Pulse 80; Resp 19; Pulse Ox 100% on R/A; Pain 0/10; rb1 12:14 BP 125 / 61; Pulse 72; Resp 18; Pulse Ox 100% ; rb1 13:14 BP 122 / 94; Pulse 82; Resp 19; Pulse Ox 100% on R/A; rb1 14:14 BP 137 / 72; Pulse 71; Resp 18; Pulse Ox 100% on R/A; rb1 15:00 BP 120 / 68; Pulse 67; Resp 17; Pulse Ox 100% on R/A; rb1 10:08 Body Mass Index 28.29 (77.11 kg, 165.10 cm) ca1 MDM: 10:18 Patient medically screened. [facility] 10:58 Data reviewed: vital signs, nurses notes, lab test result(s), EKG, radiologic studies, [facility] CT scan, plain films. 05/23 10:56 Order name: Basic Metabolic Panel; Complete Time: 12:07 [facility] 05/23 10:56 Order name: CBC with Diff; Complete Time: 12:07 [facility] 05/23 10:56 Order name: LFT's; Complete Time: 12:07 [facility] 05/23 10:56 Order name: Magnesium; Complete Time: 12:07 [facility] 05/23 10:56 Order name: NT PRO-BNP; Complete Time: 12:07 [facility] 05/23 10:56 Order name: PT-INR; Complete Time: 12:07 [facility] 05/23 10:56 Order name: Troponin (emerg Dept Use Only); Complete Time: 12:07 [facility] 05/23 10:56 Order name: XRAY Chest (1 view); Complete Time: 11:26 [facility] 05/23 10:56 Order name: Lipase; Complete Time: 12:07 [facility] 05/23 10:56 Order name: CT Chest For PE Angio; Complete Time: 12:58 [facility] 05/23 10:56 Order name: Urine Culture [facility] 05/23 10:56 Order name: ABG; Complete Time: 12:07 [facility] 05/23 10:56 Order name: AMMONIA; Complete Time: 12:07 [facility] 05/23 13:29 Order name: Echo w/ Doppler [facility] 05/23 10:56 Order name: EKG; Complete Time: 10:57 [facility] 05/23 10:56 Order name: Cardiac monitoring; Complete Time: 11:21 [facility] 05/23 10:56 Order name: EKG - Nurse/Tech; Complete Time: 11:22 [facility] 05/23 10:56 Order name: IV Saline Lock; Complete Time: 11:21 [facility] 05/23 10:56 Order name: Labs collected and sent; Complete Time: 11:21 [facility] 05/23 10:56 Order name: O2 Per Protocol; Complete Time: 11:22 [facility] 05/23 10:56 Order name: O2 Sat Monitoring; Complete Time: 11:22 [facility] 05/23 10:56 Order name: Urine Dipstick-Ancillary (obtain specimen); Complete Time: 15:35 [facility] Administered Medications: 11:23 Drug: NS 0.9% 1000 ml Route: IV; Rate: 75 ml/hr; Site: right wrist; rb1 15:25 Not Given (provider changed order): Ativan 0.5 mg IVP once rb1 15:25 Not Given (Provider canceled order): Ativan 0.5 mg IVP once rb1 Disposition: 05/24/19 14:48 Discharged to Home. Impression: Dyspnea, Anxiety disorder, unspecified, Unspecified cirrhosis of liver, Hyperventilation. - Condition is Stable. - Discharge Instructions: Panic Attacks, Hyperventilation, Shortness of Breath, Shortness of Breath, [id number], Panic Attacks, [id number]. - Prescriptions for Xanax 0.5 mg Oral Tablet - take 1 tablet by ORAL route every 8 hours As needed; 20 tablet. Albuterol Sulfate 90 mcg/actuation - inhale 1-2 puff by INHALATION route every 4-6 hours; 1 Inhaler. - Medication Reconciliation Form, Thank You Letter, Antibiotic Education, Prescription Opioid Use form. - Follow up: Alireza Valles DO; When: 2 - 3 days; Reason: Recheck today's complaints, Continuance of care, Re-evaluation by your physician. Follow up: Abdirizak Reyes MD; When: 2 - 3 days; Reason: Recheck today's complaints, Re-evaluation by your physician. - Problem is new. - Symptoms have improved. Signatures: Dispatcher [employer] EDMS Fabian Yoon MD MD cha Barber, Rebecca, RN RN rb1 Katelyn Senior RN RN ca1 Corrections: (The following items were deleted from the chart) 14:46 13:25 Hospitalization Ordered by Maikel Hernandez DO for Observation. Preliminary loren diagnosis is Dyspnea; Unspecified cirrhosis of liver; Hyperventilation. Bed requested for Telemetry/MedSurg (observation). Status is Observation. Condition is Fair. Problem is new. Symptoms have improved. loren 14:48 14:48 05/24/2019 14:48 Discharged to Home. Impression: Dyspnea; Anxiety disorder, loren unspecified; Unspecified cirrhosis of liver. Condition is Stable. Forms are Medication Reconciliation Form, Thank You Letter, Antibiotic Education, Prescription Opioid Use. Follow up: Alireza Valles; When: 2 - 3 days; Reason: Recheck today's complaints, Continuance of care, Re-evaluation by your physician. Follow up: Abdirizak Reyes; When: 2 - 3 days; Reason: Recheck today's complaints, Re-evaluation by your physician. Problem is new. Symptoms have improved. loren 15:42 14:48 05/24/2019 14:48 Discharged to Home. Impression: Dyspnea; Anxiety disorder, rb1 unspecified; Unspecified cirrhosis of liver; Hyperventilation. Condition is Stable. Discharge Instructions: Panic Attacks, Shortness of Breath, Shortness of Breath, Albm-[id number]-[id number], Panic Attacks, [id number]-[id number]. Prescriptions for Xanax 0.5 mg Oral Tablet - take 1 tablet by ORAL route every 8 hours As needed; 20 tablet. and Forms are Medication Reconciliation Form, Thank You Letter, Antibiotic Education, Prescription Opioid Use. Follow up: Alireza Valles; When: 2 - 3 days; Reason: Recheck today's complaints, Continuance of care, Re-evaluation by your physician. Follow up: Abdirizak Reyes; When: 2 - 3 days; Reason: Recheck today's complaints, Re-evaluation by your physician. Problem is new. Symptoms have improved. loren
--- NOTE | 2019-05-24 13:26 | ER ---
Nurse's Notes [facility] Name: Veronika Carrillo Age: 63 yrs Sex: Female : 1955 Arrival Date: 05/24/2019 Time: 10:00 Bed 14 Private MD: Alireza Valles H Diagnosis: Dyspnea;Anxiety disorder, unspecified;Unspecified cirrhosis of liver;Hyperventilation Presentation: 05/23 10:08 Chief complaint: Patient states: SOB since a month ago. Progressively getting worse. ca1 Worse when laying down. SOB at rest. Denies history of COPD and CHF. Denies fever. Reports occasional cough and seasonal allergies. Hx of liver cancer. Coronavirus screen: The patient has NOT traveled to a country currently being monitored by the CDC within the last 14 days. The patient has NOT had contact with any known and/or suspected case of coronavirus. Ebola Screen: Patient negative for fever greater than or equal to 101.5 degrees Fahrenheit, and additional compatible Ebola Virus Disease symptoms Patient denies exposure to infectious person. Patient denies travel to an Ebola-affected area in the 21 days before illness onset. No symptoms or risks identified at this time. Initial Sepsis Screen: Does the patient meet any 2 criteria? No. Patient's initial sepsis screen is negative. Does the patient have a suspected source of infection? No. Patient's initial sepsis screen is negative. Risk Assessment: Do you want to hurt yourself or someone else? Patient reports no desire to harm self or others. Onset of symptoms was May 24, 2019. 10:08 Method Of Arrival: Ambulatory ca1 10:08 Acuity: ADRIEL 3 ca1 Triage Assessment: 10:20 Respiratory: Onset: The symptoms/episode began/occurred a month ago, the patient has rb1 mild shortness of breath. Historical: - Allergies: 10:13 Sulfa (Sulfonamide Antibiotics); ca1 - PMHx: 10:13 liver Cancer; Cyst on pancreas; Hep C; Pancreatitis; Cirrhosis; Diabetes - NIDDM; ca1 Rheumatoid Arthritis; - PSHx: 10:13 ; hand surgery; ca1 - Immunization history:: Adult Immunizations up to date, Flu vaccine is up to date. - Social history:: Smoking status: Patient/guardian denies using tobacco, the patient reports quitting approximately 1 years ago. - Family history:: not pertinent. Screenin:20 Abuse screen: Denies threats or abuse. Nutritional screening: No deficits noted. rb1 Tuberculosis screening: No symptoms or risk factors identified. Fall Risk None identified. Assessment: 10:20 General: Appears in no apparent distress. comfortable, Behavior is calm, cooperative, rb1 Denies fever. Pain: Denies pain. Neuro: Level of Consciousness is awake, alert, obeys commands, Oriented to person, place, time, situation. Cardiovascular: Capillary refill < 3 seconds is brisk in bilateral fingers. Respiratory: Reports cough that is dry, Airway is patent Respiratory effort is even, unlabored, Respiratory pattern is regular, symmetrical. GI: No signs and/or symptoms were reported involving the gastrointestinal system. : No signs and/or symptoms were reported regarding the genitourinary system. Derm: Skin is pink, warm \T\ dry. 11:20 Reassessment: Patient appears in no apparent distress at this time. No changes from rb1 previously documented assessment. Family at the bedside Patient denies pain at this time. 12:20 Reassessment: Patient appears in no apparent distress at this time. Patient and/or rb1 family updated on plan of care and expected duration. Pain level reassessed. Patient is alert, oriented x 3, equal unlabored respirations, skin warm/dry/pink. Family at the bedside. 13:19 Reassessment: Patient appears in no apparent distress at this time. Pt. is watching TV rb1 at this time. 13:48 Reassessment: Dr. Hernandez is at the pt. bedside. rb1 14:48 Reassessment: Patient appears in no apparent distress at this time. Patient and/or rb1 family updated on plan of care and expected duration. Pain level reassessed. Patient is alert, oriented x 3, equal unlabored respirations, skin warm/dry/pink. 15:36 Reassessment: Patient appears in no apparent distress at this time. No changes from rb1 previously documented assessment. Pt. at the bedside. Vital Signs: 10:08 BP 147 / 77; Pulse 84; Resp 18; Temp 97.4(TE); Pulse Ox 100% on R/A; Weight 77.11 kg ca1 (R); Height 5 ft. 5 in. (165.10 cm) (R); 11:14 BP 126 / 62; Pulse 80; Resp 19; Pulse Ox 100% on R/A; Pain 0/10; rb1 12:14 BP 125 / 61; Pulse 72; Resp 18; Pulse Ox 100% ; rb1 13:14 BP 122 / 94; Pulse 82; Resp 19; Pulse Ox 100% on R/A; rb1 14:14 BP 137 / 72; Pulse 71; Resp 18; Pulse Ox 100% on R/A; rb1 15:00 BP 120 / 68; Pulse 67; Resp 17; Pulse Ox 100% on R/A; rb1 10:08 Body Mass Index 28.29 (77.11 kg, 165.10 cm) ca1 ED Course: 10:00 Patient arrived in ED. rg4 10:02 Alireza Valles DO is Private Physician. rg4 10:11 Triage completed. ca1 10:13 Arm band placed on right wrist. ca1 10:15 Pilar Roman, RN is Primary Nurse. rb1 10:17 Fabian Yoon MD is Attending Physician. loren 10:20 Patient has correct armband on for positive identification. Placed in gown. Bed in low rb1 position. Call light in reach. Side rails up X 1. Pulse ox on. NIBP on. 11:01 EKG done, by fresh foods technician. reviewed by Fabian Yoon MD. at1 11:09 XRAY Chest (1 view) In Process Unspecified. EDMS 11:20 Initial lab(s) drawn, by il, sent to lab. Inserted saline lock: 20 gauge in right ms forearm, using aseptic technique. Blood collected. 12:16 CT Chest For PE Angio In Process Unspecified. EDMS 13:24 Maikel Hernandez DO is Hospitalizing Provider. loren 14:47 Alireza Valles DO is Referral Physician. loren 14:47 Abdirizak Reyes MD is Referral Physician. loren 15:40 No provider procedures requiring assistance completed. IV discontinued, intact, rb1 bleeding controlled, No redness/swelling at site. Pressure dressing applied. Administered Medications: 11:23 Drug: NS 0.9% 1000 ml Route: IV; Rate: 75 ml/hr; Site: right wrist; rb1 15:25 Not Given (provider changed order): Ativan 0.5 mg IVP once rb1 15:25 Not Given (Provider canceled order): Ativan 0.5 mg IVP once rb1 Outcome: 13:25 Decision to Hospitalize by Provider. loren 14:48 Discharge ordered by . loren 15:40 Discharged to home via wheelchair, with family. rb1 15:40 Condition: stable 15:40 Discharge instructions given to patient, Instructed on discharge instructions, follow up and referral plans. medication usage, Demonstrated understanding of instructions, follow-up care, medications, Prescriptions given X 2. 15:42 Patient left the ED. rb1 Signatures: Dispatcher [employer] EDFabian Miranda MD MD cha Villarreal, Maria ms Gonzales, Amanda, medical equipment sales EKG Tat1 Pilar Roman, RN RN rb1 Zack, Marlene rg4 Katelyn Senior RN RN ca1 Corrections: (The following items were deleted from the chart) 10:13 10:08 Chief complaint: Patient states: SOB since a month ago. Progressively getting ca1 worse. Worse when laying down. SOB at rest. Denies history of COPD and CHF. Denies fever. Reports occasional cough and seasonal allergies ca1
[2019-05-24] MEDS ORDERED: LORazepam 2 MG/ML VIAL ONE (13:48)
--- NOTE | 2019-05-24 15:49 | P.CNS ---
Date of Consult: 05/24/19 Reason for Consult: ER Consult Requesting Physician: Fabian Yoon Primary Care Provider: PCP-Dr. Valles Chief Complaint: Shortness of breath History of Present Illness: 63-year-old female with history of liver cirrhosis with hepatocellular carcinoma, hepatitis-C, WAGNER and diabetes. Patient presented to the ER with shortness of breath. Patient has reported shortness of breath over the past month. This is been getting worse. She reports not being able to sleep well. She has reported some edema to the lower extremity. She denies any chest pain, fever, chills, nausea or vomiting. Patient reports increase anxiety. She came to the ER for further evaluation. In the ER patient was evaluated. Vital signs stable. Room-air saturations within normal range. On lab white count 8.1, hemoglobin 11.9. Sodium 137, potassium 3.9, BUN of 23, creatinine 1.07 with a GFR 54. Glucose 92. Ammonia level within normal range. BMP 137. Lipase unremarkable. Troponin unremarkable. Chest x-ray unremarkable. CT chest shows no pneumonia or pulmonary embolism. I was asked to evaluate the patient for possible admission. When I saw the patient ER, she appeared appropriate. She did not appear in any respiratory distress or sepsis. Patient sees multiple specialists in [place]. This includes GI. Patient reports cardiac workup in 2019 which was unremarkable this included a heart catheterization. Allergies Sulfa (Sulfonamide Antibiotics) Allergy (Severe, Verified 05/17/13 13:43) Shortness of breath Home medications list reviewed: Yes Home Medications: Citalopram [Celexa*] 20 mg PO DAILY 10/13/13 Dexlansoprazole [Dexilant] 60 mg PO DAILY 10/13/13 Levothyroxine [Synthroid*] 0.15 mg PO DAILY 10/13/13 Spironolactone [Aldactone] 75 mg PO DAILY 10/13/13 Tramadol HCl [Ultram] 50 mg PO DAILY PRN 10/13/13 Ursodiol 500 mg PO DAILY 10/13/13 carvediloL [Coreg*] 3.125 mg PO BID 10/13/13 Insulin Lispro [Humalog] 20 units .ROUTE BID 07/16/15 Lipase/Protease/Amylase [Creon 5 EC Capsule] 1 cap PO BID 07/16/15 - Past Medical/Surgical History Diabetic: Yes -: Liver cirrhosis -: Hep C -: Hepatocellular carcinoma -: GERD -: Depression with anxiety -: Hypertension -: Hypothyroidism -: Chronic pain -: Chronic pancreatitis -: Diabetes mellitus type 2 insulin-dependent -: X3 -: Carpal Tunnel Sx BL X2 Psychosocial/ Personal History: Patient is - Social History Smoking Status: Never smoker Alcohol use: No CD- Drugs: No Caffeine use: Yes Place of Residence: Home Review of Systems General: As per HPI Eyes: Unremarkable Respiratory: Shortness of Breath, As per HPI Cardiovascular: Unremarkable Gastrointestinal: Unremarkable Genitourinary: Unremarkable Musculoskeletal: Unremarkable Integumentary: Unremarkable Neurological: Unremarkable Lymphatics: Unremarkable Physical Examination General: Alert, In no apparent distress, Oriented x3, Cooperative HEENT: Atraumatic, Normocephalic, Mucous membr. moist/pink Neck: Supple Respiratory: Clear to auscultation bilaterally, Normal air movement Cardiovascular: Normal pulses, Regular rate/rhythm Gastrointestinal: Normal bowel sounds, Soft and benign, Non-distended, No tenderness, No masses, No rebound, No guarding Musculoskeletal: No erythema, No tenderness, No warmth Integumentary: No tenderness/swelling, No erythema, No warmth, No cyanosis Neurological: Normal speech, Normal strength at 5/5 x4 extr, Normal tone, Normal affect Lymphatics: No axilla or inguinal lymphadenopathy Laboratory Data (last 24 hrs) 05/24/19 11:19: PT 12.9 H, INR 1.10 05/24/19 11:19: WBC 8.1, Hgb 11.9 L, Hct 36.1, Plt Count 162 05/24/19 11:19: Sodium 137, Potassium 3.9, BUN 23 H, Creatinine 1.02, Glucose 92 , Magnesium 2.4, Total Bilirubin 0.7, AST 16, ALT 22, Alkaline Phosphatase 141 H , Lipase 111 Conclusions/Impression: Impression: Chronic shortness of breath suspect underlying chronic diastolic CHF Liver cirrhosis complicated with hepatocellar carcinoma and WAGNER Hypertension Depression with anxiety Chronic pain GERD Chronic pancreatitis Possible underlying obstructive sleep apnea Diabetes mellitus type 2 insulin-dependent Plan: Patient was evaluated in the emergency room. Vital signs within normal range. Patient does not appear septic or in respiratory distress. Room-air saturations within normal range. Patient does not meet criteria for admission. Shortness of breath is chronic and likely related to underlying diastolic CHF. Echo was obtain in the emergency room. ER physician reports it was normal. Will recommend 1500 cc per day fluid restriction and low-salt diet. Patient to monitor her weight daily. If her weight increases by more than 5 lb she keep consider increasing Lasix from 40 mg daily to twice daily. This can be further adjusted by her PCP. Patient may have underlying obstructive sleep apnea. Will also recommend pulmonology evaluation and sleep study as an outpatient to further evaluate. I will get of hold of her PCP to follow up and address these medical issues. Case discussed with ER physician who agrees with plan of care to discharge patient. Patient may continue with her other medications. Time Spent Managing Pts care (In Minutes): 55
[2019-05-24 16:19] VITALS: TEMP 97.4; O2SAT 100
[2019-05-24 16:22] VITALS: BP 125/61
--- NOTE | 2019-05-25 10:06 | ECHO ---
HEIGHT: 5 ft 5 in WEIGHT: 15 lb 11.2 oz DATE OF STUDY: 05/24/[address]: Fabian Yoon MD 2-DIMENSIONAL: YES M.MODE: YES DOPPLER: YES COLOR FLOW: YES TDS: PORTABLE: DEFINITY: BUBBLE STUDY: DIAGNOSIS: SHORTNESS OF BREATH CARDIAC HISTORY: CATHERIZATION: NO SURGERY: NO PROSTHETIC VALVE: NO PACEMAKER: NO MEASUREMENTS (cm) DIASTOLIC (NORMALS) SYSTOLIC (NORMALS) IVSd 1.2 (0.6-1.2) LA Diam 3.4 (1.9-4.0) LVEF 77% LVIDd 4.3 (3.5-5.7) LVIDs 2.3 (2.0-3.5) %FS 46% LVPWd 1.2 (0.6-1.2) Ao Diam 2.7 (2.0-3.7) 2 DIMENSIONAL ASSESSMENT: RIGHT ATRIUM: NORMAL LEFT ATRIUM: NORMAL RIGHT VENTRICLE: NORMAL LEFT VENTRICLE: NORMAL TRICUSPID VALVE: NORMAL MITRAL VALVE: NORMAL PULMONIC VALVE: NORMAL AORTIC VALVE: NORMAL PERICARDIAL EFFUSION: NONE AORTIC ROOT: NORMAL LEFT VENTRICULAR WALL MOTION: DOPPLER/COLOR FLOW: PHYSIOLOGIC TRICUSPID REGURGITATION. COMMENTS: NORMAL 2-DIMENSIONAL ECHOCARDIOGRAM WITH DOPPLER. TECHNOLOGIST: EMERITA SOL
== END 2019-05-24 15:42 | disposition home or self-care (01) ==
LOC: ER 09:57
DX: R06.4 Hyperventilation (principal); F41.9 Anxiety disorder, unspecified; K74.60 Unspecified cirrhosis of liver; Z85.05 Personal history of malignant neoplasm of liver; Z88.2 Allergy status to sulfonamides
CPT/HCPCS: 93005; 93306; 87088; 85025; 87086; 80048; 36415; 82140; 83735; 85610; 80076; 84484; 83690; 83880; 71275; 71045; 82805; Q9967; J7030; 99284

== ENCOUNTER 2019-09-19 19:21 | Emergency (ER) | payer OTHER ==
--- OUTSIDE RECORDS SUMMARY | 2019-09-19 19:26 | XMS REPORT | Clinical Summary ---
:1955 Author Organization [facility] Address [address] [place] [address] Care Team Providers Name Role Phone Irma Valles Primary Care Provider Allergies Active Allergy Reactions Severity Noted Date Comments Sulfa (Sulfonamide Antibiotics) Swelling Medium 4 TONGUE SWELLING Medications Medication Sig Dispensed Refills Start Date End Date Status carvedilol (COREG) Take 3.125 mg by 0 Active 3.125 MG tablet mouth daily . escitalopram oxalate Take 20 mg by mouth 0 Active (LEXAPRO) 20 MG daily. tabletIndications: Chronic hepatitis C without hepatic coma (HCC), Portal hypertension (HCC), Right upper quadrant abdominal pain, Immunity status testing, Chronic pancreatitis, unspecified pancreatitis type (HCC), Other ascites, Calculus of gallbladder without cholecystitis without obstruction, Alcoholic cirrhosis, unspecified whether ascites present (HCC), Cancer screening traMADol (ULTRAM) 50 Take 50 mg by mouth 0 Active mg as needed for Pain. tabletIndications: Chronic hepatitis C without hepatic coma (HCC), Portal hypertension (HCC), Right upper quadrant abdominal pain, Immunity status testing, Chronic pancreatitis, unspecified pancreatitis type (HCC), Other ascites, Calculus of gallbladder without cholecystitis without obstruction, Alcoholic cirrhosis, unspecified whether ascites present (HCC), Cancer screening ursodiol (ACTIGALL) Take 300 mg by mouth 0 Active 300 mg daily . capsuleIndications: Chronic hepatitis C without hepatic coma (HCC), Portal hypertension (HCC), Right upper quadrant abdominal pain, Immunity status testing, Chronic pancreatitis, unspecified pancreatitis type (HCC), Other ascites, Calculus of gallbladder without cholecystitis without obstruction, Alcoholic cirrhosis, unspecified whether ascites present (HCC), Cancer screening omeprazole Take 40 mg by mouth 0 Active (PRILOSEC) 40 MG daily. capsuleIndications: Chronic hepatitis C without hepatic coma (HCC), Portal hypertension (HCC), Right upper quadrant abdominal pain, Immunity status testing, Chronic pancreatitis, unspecified pancreatitis type (HCC), Other ascites, Calculus of gallbladder without cholecystitis without obstruction, Alcoholic cirrhosis, unspecified whether ascites present (HCC), Cancer screening gabapentin Take 600 mg by mouth 0 01/07/2018 Active (NEURONTIN) 600 MG 2 (two) times daily tablet . [id number] Take 1 capsule by 0 02/06/2018 Active ase (ZENPEP) mouth 2 (two) times 40,000-126,000- daily . 168,000 unit CpDR insulin lispro Inject 20 Units 0 Active protamin/lispro subcutaneously daily (HUMALOG MIX 75-25 with breakfast . SUBQ) colestipol Take 5 g by mouth as 0 Active (COLESTID) 5 gram needed (FOR granules ITCHING). empagliflozin Take 10 mg by mouth 0 Active (JARDIANCE) 10 mg daily. tablet levothyroxine Take 137 mcg by 0 Active (SYNTHROID, mouth Every morning LEVOTHROID) 137 MCG on an empty stomach. tablet insulin lispro Inject 18 Units 0 Active protamin-lispro subcutaneously (HUMALOG 75-25) 100 nightly. unit/mL (75-25) InPn injection topiramate (TOPAMAX) TAKE 1 TABLET BY 0 02/16/2019 Active 50 MG tablet MOUTH TWICE A DAY IF TOLERATED furosemide (LASIX) Take 1 tablet (40 mg 60 tablet 3 09/16/2019 Active 40 MG total) by mouth 2 1 tabletIndications: (two) times daily. Hepatic cirrhosis, unspecified hepatic cirrhosis type, unspecified whether ascites present (HCC), Chronic hepatitis C without hepatic coma (HCC), Other ascites spironolactone Take 2 tablets (100 60 tablet 3 09/16/201909/06 Active (ALDACTONE) 50 MG mg total) by mouth 1 tabletIndications: daily. Hepatic cirrhosis, unspecified hepatic cirrhosis type, unspecified whether ascites present (HCC), Chronic hepatitis C without hepatic coma (HCC), Other ascites spironolactone Take 2 tablets (100 60 tablet 11 07/28/201807/08 (ALDACTONE) 50 MG mg total) by mouth 0 tabletIndications: daily. Chronic hepatitis C without hepatic coma (HCC), Other ascites, Portal hypertension (HCC), Pre-transplant evaluation for chronic liver disease, Peripheral edema furosemide (LASIX) Take 1 tablet (40 mg 90 tablet 3 07/30/2018 40 MG total) by mouth 0 tabletIndications: daily. Chronic hepatitis C without hepatic coma (HCC), Other ascites, Portal hypertension (HCC), Pre-transplant evaluation for chronic liver disease, Peripheral edema Active Problems Problem Noted Date Hepatocellular carcinoma 07/28/2018 Type II diabetes mellitus 07/28/2018 Pre-transplant evaluation for chronic liver disease Last Assessment & Plan: She is an acceptable candidate for liver transplant pending further imaging/testing and official review at [facility]. Liver lesion 05/26/2018 Last Assessment & Plan: 1.6cm and 1.0 cm lesion seen on MRI 03/2018 consistent with features of HCC confirmed upon radiological conference review. Hepatology and oncology with coordinate care/treatment. Cancer screening 03/17/2018 Last Assessment & Plan: Cirrhosis, regardless of etiology, is a risk factor for development of hepatocellular carcinoma with an annual incidence of 1. 5-4.5%. We recommend surveillance for HCC with abdominal imaging and alphafetoprot ein every 6 months. MRI and AFP are ordered . Chronic hepatitis C without hepatic coma 03/11/2018 Last Assessment & Plan: Continue follow up with hepatology for t reatment options. Portal hypertension 03/11/2018 Last Assessment & Plan: Portal hypertension with evidence by hyp ersplenism and ascites. Right upper quadrant abdominal pain 03/11/2018 Last Assessment & Plan: Unclear etiology. History of gallstone b ut no cholecystitis. Possible etiology is chronic pancreatitis. We will get HIDA s can to assess for functional gallbladder disorder. Immunity status testing 03/11/2018 Last Assessment & Plan: Serological tests will be completed to d etermine the presence of immunity to hepatitis A and B. If the patient does n ot have adequate immunity, we would recommend administration of appropriate vaccinatio n as per CDC guidelines by the primary care provider. 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 First diagnosis was in 2011. Other ascites 03/11/2018 Last Assessment & Plan: Controlled on spironolactone 50 mg. Dis cussed with the patient 2 gram sodium-restricted diet. 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 C ontinue follow up with hepatology as scheduled. Cholecystitis 05/19/2013 Encounters Date Type Specialty Care Team Description 09/16/2019 Orders Only Transplant Hepatology [facility], Hepati c cirrhosis, unspecified hepatic cirrhosis type, unspecified whether ascites present (HCC) (Primary Dx); Joel Madrigal RN Chronic hepati tis C without hepatic coma (HCC); Other ascites 09/09/2019 Refill Hepatology Peggy Navarrete MD 08/12/2019 Telephone Transplant Hepatology Lelea Celis in the [facility] 08/11/2019 Hospital Encounter Radiology Peggy Navarrete MD 08/11/2019 Hospital Encounter Radiology Peggy Navarrete Hepatoc ellular carcinoma ; MD Venancio Hepatic cirrhos is, unspecified hepatic cirrhosis type, unspecified whether ascites present (HCC); Chronic hepatit is C without hepatic coma (HCC) 08/11/2019 Hospital Encounter Radiology Peggy Navarrete Hepatoc ellular carcinoma ; MD Venancio Hepatic cirrhos is, unspecified hepatic cirrhosis type, unspecified whether ascites present (HCC); Other ascites 08/11/2019 Hospital Encounter Peggy Navarrete Hepatoc ellular carcinoma ; MD Venancio Hepatic cirrhos is, unspecified hepatic cirrhosis type, unspecified whether ascites present (HCC); Chronic hepatit is C without hepatic coma (HCC) 08/11/2019 Orders Only Radiology Kali Tavares Hepatocellula r carcinoma ; F Hepatic cirrhos is, unspecified hepatic cirrhosis type, unspecified whether ascites present (HCC); Chronic hepatit is C without hepatic coma (HCC) 08/11/2019 Orders Only Radiology Yamila Gibbs Hepatocellula r carcinoma ; E Hepatic cirrhos is, unspecified hepatic cirrhosis type, unspecified whether ascites present (HCC); Chronic hepatit is C without hepatic coma (HCC) 08/10/2019 Refill Hepatology Peggy Navarrete Chronic hepat itis C without hepatic coma (HCC); MD Venancio Other ascites; Portal hyperten sadiq (HCC); Pre-transplant evaluation for chronic liver disease; Peripheral margie a 07/21/2019 Orders Only Transplant Hepatology [facility], Hepato cellular carcinoma (Primary Dx); Joel Madrigal RN Hepatic cirrho sis, unspecified hepatic cirrhosis type, unspecified whether ascites present (HCC); Chronic hepatit is C without hepatic coma (HCC) 07/12/2019 Hospital Encounter Radiology Peggy Navarrete Hepatoc ellular carcinoma ; MD Venancio Hepatic cirrhos is, unspecified hepatic cirrhosis type, unspecified whether ascites present (HCC); Other ascites 07/12/2019 Hospital Encounter Radiology Peggy Navarrete Hepatoc ellular carcinoma (HCC); MD Venancio Hepatic cirrhos is, unspecified hepatic cirrhosis type, unspecified whether ascites present (HCC); Other ascites 07/12/2019 Orders Only Radiology Robin Washburn Hepatocellular carcinoma ; Hepatic cirrhos is, unspecified hepatic cirrhosis type, unspecified whether ascites present (HCC); Other ascites 06/30/2019 Orders Only Transplant Hepatology [facility], Hepato cellular carcinoma (Primary Dx); Joel Madrigal RN Hepatic cirrho sis, unspecified hepatic cirrhosis type, unspecified whether ascites present (HCC); Other ascites 06/10/2019 Documentation Transplant Hepatology Kylie Adler RN 06/09/2019 Documentation Transplant Hepatology Joel [facility] RN 06/08/2019 Documentation Transplant Hepatology Peggy Navarrete MD 06/07/2019 Orders Only Transplant Hepatology [facility], Hepato cellular carcinoma (Primary Dx); Joel Madrigal RN Hepatic cirrho sis, unspecified hepatic cirrhosis type, unspecified whether ascites present (HCC); Other ascites 06/03/2019 Telephone Transplant Hepatology Mary Boone intment 06/02/2019 Abstract Transplant Hepatology Yamila Reddy MA 05/27/2019 Orders Only Lab Brentchase Peggy Chronic hepat itis C without hepatic coma (HCC); MD Venancio Hepatocellular carcinoma ; Other ascites 05/27/2019 Hospital Encounter Radiology Peggy Navarrete Chronic hepatitis C without hepatic coma (HCC); MD Venancio Hepatocellular carcinoma ; Other ascites 05/27/2019 Hospital Encounter Radiology Peggy Navarrete Chronic hepatitis C without hepatic coma (HCC); MD Venancio Hepatocellular carcinoma ; Other ascites 05/27/2019 Outside Orders Valles, [place] Irma 04/15/2019 Hospital Encounter Peggy Navarrete Chronic hepatitis C without hepatic coma (HCC); MD Venancio Hepatocellular carcinoma ; Other ascites 04/08/2019 Outside Orders Radiology Fela Reyes 04/07/2019 Orders Only Transplant Hepatology [facility], Hepato cellular carcinoma (Primary Dx); Joel Madrigal RN Hepatic cirrho sis, unspecified hepatic cirrhosis type, unspecified whether ascites present (HCC) 03/31/2019 Office Visit Scott French II, MD 02/23/2019 Hospital Encounter Radiology Peggy Navarrete Hepatoc ellular carcinoma ; MD Venancio Chronic hepatit is C without hepatic coma (HCC) 02/23/2019 Office Visit Transplant Hepatology Peggy Navarrete Hepa tic cirrhosis, unspecified hepatic cirrhosis type, unspecified whether ascites present (HCC) (Primary Dx); MD Venancio Other ascites; Portal hyperten sadiq (HCC); Hepatocellular carcinoma 02/23/2019 Travel 02/22/2019 Orders Only Transplant Hepatology [facility], Chroni c hepatitis C without hepatic coma (HCC) (Primary Dx); Joel Madrigal RN Hepatocellular carcinoma ; Other ascites 02/11/2019 Hospital Encounter Radiology Peggy Navarrete Hepatoc ellular carcinoma ; MD Venancio Chronic hepatit is C without hepatic coma (HCC) 02/11/2019 Orders Only Lab Peggy Navarrete Hepatocellula r carcinoma ; MD Venancio Chronic hepatit is C without hepatic coma (HCC) 02/11/2019 Hospital Encounter Radiology Peggy Navarrete MD 02/11/2019 Hospital Encounter Radiology Peggy Navarrete Hepatoc ellular carcinoma ; MD Venancio Chronic hepatit is C without hepatic coma (HCC) 02/11/2019 Documentation Transplant Hepatology Mary Boone 02/10/2019 Travel 02/10/2019 Outside Orders Valles, [place] Irma 01/28/2019 Refill Transplant Hepatology Peggy Navarrete [employer] [place] hepatitis C without hepatic coma (HCC); MD Venancio Other ascites; Portal hyperten sadiq (HCC); Pre-transplant evaluation for chronic liver disease; Peripheral margie a 01/06/2019 Anesthesia Event Gastroenterology Dax Tenorio CRNA 01/06/2019 Surgery Gastroenterology Joe Turpin COLONOSC OPY,SUBMUCO Dyana Patel MD JENY RESECTION 01/06/2019 Hospital Encounter Gastroenterology Joe Turpin MD 01/05/2019 Hospital Encounter Pre-Admission Testing 11/17/2018 Office Visit Transplant Hepatology Peggy Navarrete [employer] [place] hepatitis C without hepatic coma (HCC) (Primary Dx); MD Venancio Chronic pancrea titis, unspecified pancreatitis type (HCC); Hepatocellular carcinoma ; Hepatic cirrhos is, unspecified hepatic cirrhosis type, unspecified whether ascites present (HCC); Type 2 diabetes mellitus with complication, unspecified whether care home insulin use (HCC); Immunity status testing; Other ascites; Cancer screenin g 11/16/2018 Orders Only Transplant Hepatology [facility], Hepato cellular carcinoma (Primary Dx); Joel Madrigal RN Chronic hepati tis C without hepatic coma (HCC) 11/05/2018 Hospital Encounter Radiology Peggy Navarrete Hepatoc ellular carcinoma (HCC); MD Venancio Chronic hepatit is C without hepatic coma (HCC); Hepatic cirrhos is, unspecified hepatic cirrhosis type, unspecified whether ascites present (HCC) 11/05/2018 Hospital Encounter Radiology Peggy Navarrete Hepatoc ellular carcinoma (HCC); MD Venancio Chronic hepatit is C without hepatic coma (HCC); Hepatic cirrhos is, unspecified hepatic cirrhosis type, unspecified whether ascites present (HCC) 11/05/2018 Orders Only Lab Peggy Navarrete Hepatocellula r carcinoma (HCC); MD Venancio Chronic hepatit is C without hepatic coma (HCC); Hepatic cirrhos is, unspecified hepatic cirrhosis type, unspecified whether ascites present (HCC) 10/21/2018 Outside Orders [place]arg[place]se Valles after 09/18/2018 Family History Medical History Relation Name Comments COPD Father Heart disease Father Heart disease Mother Relation Name Status Comments Father Mother Social History Tobacco Use Types Packs/Day Years Used Date Former Smoker Quit: 05/30/19 Smokeless Tobacco: Never Used Alcohol Use Drinks/Week oz/Week Comments No NONE SINCE Alcohol Habits Answer Date Recorded How often do you have a drink containing alcohol? Never 08/30/2018 How many drinks containing alcohol do you have on a typical Not asked day when you are drinking? How often do you have six or more drinks on one occasion? No t asked Sex Assigned at Date Recorded Female 07/15/2018 3:19 PM CDT Job Start Date Occupation Industry Not on file Not on file Not on file Travel History Travel Start Travel End No recent travel history available. Last Filed Vital Signs Vital Sign Reading Time Taken Blood Pressure 156/67 08/11/2019 6:15 PM CDT Pulse 73 08/11/2019 6:15 PM CDT Temperature 37.2 C (99 F) 08/11/2019 8:27 AM CDT Respiratory Rate 16 08/11/2019 6:15 PM CDT Oxygen Saturation 96% 08/11/2019 4:52 PM CDT Inhaled Oxygen Concentration - - Weight 85.8 kg (189 lb 3.2 oz) 08/11/2019 7:01 AM CDT Height 162.6 cm (5' 4") 08/11/2019 7:01 AM CDT Body Mass Index 32.48 08/11/2019 7:01 AM CDT Plan of Treatment Date Type Specialty Care Team Description 10/07/2019 Appointment Radiology Peggy Navarrete MD [address] [address] [phone] 10/07/2019 Appointment Radiology Peggy Navarrete MD [address] [address] 10/07/2019 Appointment Radiology Peggy Navarrete MD [address] [address] 10/07/2019 Orders Only Lab Peggy Navarrete MD [address] [address] 10/07/2019 Appointment Radiology Peggy Navarrete MD [address] [address] 0 [phone] 10/19/2019 Office Visit Transplant Hepatology Moriah Navarrete MD [address] [facility] [address] [place], [place] [address] [phone] Health Maintenance Due Date Last Done Comments COLON CANCER SCREENING COLONOSCOPY 1955 DIABETIC EYE EXAM 10/19/1963 DIABETIC FOOT EXAM 10/19/1963 CERVICAL CANCER SCREENING PAP ONLY (Age 0810[birth year]18/1974 21-65) HEMOGLOBIN A1C 08/26/2018 05/26/2018 PNEUMOCOCCAL 65+ LOW/MEDIUM RISK (1 of 2 - 2018 PCV13) INFLUENZA VACCINE (#1) 2019 URINE MICROALBUMIN 04/29/2020 04/29/2019 BREAST CANCER SCREENING 05/26/2020 05/26/2018, 05/26/2018 Procedures Procedure Name Priority Date/Time Associated Diagnosis Comme nts NM TUMOR LOCALIZATION Routine 08/11/2019 3:37 Re sults for this SPECT PM CDT procedure are i n the results section. NM Y90 MICROSPHERES Routine 08/11/2019 3:36 Hepatocellular Re sults for this THERAPY PM CDT carcinoma procedure are in Hepatic cirrhosis, the resul ts unspecified hepatic section. cirrhosis type, unspecified whether ascites present (HCC) Chronic hepatitis C without hepatic coma (HCC) IR VISCERAL Routine 08/11/2019 2:40 Hepatocellular Results f or this ARTERIOGRAM PM CDT carcinoma procedure are in Hepatic cirrhosis, the resul ts unspecified hepatic section. cirrhosis type, unspecified whether ascites present (HCC) Chronic hepatitis C without hepatic coma (HCC) NM TUMOR LOCALIZATION Routine 08/11/2019 12:40 Re sults for this MULTIPLE PM CDT procedure are i n the results section. IR EMBOLIZATION Routine 08/11/2019 11:26 Hepatocellular Result s for this ARTERIAL AM CDT carcinoma procedure are in Hepatic cirrhosis, the resul ts unspecified hepatic section. cirrhosis type, unspecified whether ascites present (HCC) Chronic hepatitis C without hepatic coma (HCC) CBC W/PLT COUNT & Routine 08/11/2019 7:36 Result s for this AUTO DIFFERENTIAL AM CDT procedure are in the results section. BILIRUBIN, DIRECT Routine 08/11/2019 7:36 Result s for this AM CDT procedure are i n the results section. COMPREHENSIVE Routine 08/11/2019 7:36 Results fo r this METABOLIC PANEL AM CDT procedure ar e in the results section. APTT Routine 08/11/2019 7:36 Results for this AM CDT procedure are i n the results section. PROTHROMBIN TIME/INR Routine 08/11/2019 7:36 Res ults for this AM CDT procedure are i n the results section. CBC W/PLT COUNT & Routine 08/11/2019 7:36 Result s for this AUTO DIFFERENTIAL AM CDT procedure are in the results section. NM TUMOR LOCALIZATION Routine 07/12/2019 5:46 Re sults for this SPECT PM CDT procedure are i n the results section. IR VISCERAL Routine 07/12/2019 4:00 Hepatocellular Results f or this ARTERIOGRAM PM CDT carcinoma procedure are in Hepatic cirrhosis, the resul ts unspecified hepatic section. cirrhosis type, unspecified whether ascites present (HCC) Other ascites CBC W/PLT COUNT & Routine 07/12/2019 9:35 Result s for this AUTO DIFFERENTIAL AM CDT procedure are in the results section. BILIRUBIN, DIRECT Routine 07/12/2019 9:35 Result s for this AM CDT procedure are i n the results section. COMPREHENSIVE Routine 07/12/2019 9:35 Results fo r this METABOLIC PANEL AM CDT procedure ar e in the results section. APTT Routine 07/12/2019 9:35 Results for this AM CDT procedure are i n the results section. PROTHROMBIN TIME/INR Routine 07/12/2019 9:35 Res ults for this AM CDT procedure are i n the results section. CBC W/PLT COUNT & Routine 07/12/2019 9:35 Result s for this AUTO DIFFERENTIAL AM CDT procedure are in the results section. CBC W/PLT COUNT & Routine 05/27/2019 11:23 Chronic hepatitis C Results for this AUTO DIFFERENTIAL AM CDT without hepatic coma pr ocedure are in (HCC) the results Hepatocellular section. carcinoma Other ascites PROTHROMBIN TIME/INR Routine 05/27/2019 11:23 Chronic hepatiti s C Results for this AM CDT without hepatic coma procedu re are in (HCC) the results Hepatocellular section. carcinoma Other ascites HEPATIC FUNCTION Routine 05/27/2019 11:23 Chronic hepatitis C Results for this PANEL AM CDT without hepatic coma procedu re are in (HCC) the results Hepatocellular section. carcinoma Other ascites CBC W/PLT COUNT & Routine 05/27/2019 11:23 Chronic hepatitis C Results for this AUTO DIFFERENTIAL AM CDT without hepatic coma pr ocedure are in (HCC) the results Hepatocellular section. carcinoma Other ascites BASIC METABOLIC PANEL Routine 05/27/2019 11:23 Chronic hepatit is C Results for this (7) AM CDT without hepatic coma procedu re are in (HCC) the results Hepatocellular section. carcinoma Other ascites ALPHA FETOPROTEIN Routine 05/27/2019 11:23 Chronic hepatitis C Results for this (AFP), TUMOR MARKER AM CDT without hepatic coma procedure are in (HCC) the results Hepatocellular section. carcinoma Other ascites CT CHEST WITHOUT IV Routine 05/27/2019 11:00 Chronic hepatitis C Results for this CONTRAST AM CDT without hepatic coma procedu re are in (HCC) the results Hepatocellular section. carcinoma Other ascites MR ABDOMEN WITH & Routine 05/27/2019 10:23 Chronic hepatitis C Results for this WITHOUT IV CONTRAST AM CDT without hepatic coma procedure are in (HCC) the results Hepatocellular section. carcinoma Other ascites POCT-CREATININE Routine 05/27/2019 9:55 Results for this AM CDT procedure are i n the results section. CT ABDOMEN WITHOUT IV Routine 04/15/2019 1:46 Re sults for this CONTRAST PM [employer] procedure are i n the results section. IR EMBOLIZATION Routine 04/15/2019 1:21 Chronic hepatitis C R esults for this ARTERIAL PM [employer] without hepatic coma procedu re are in (HCC) the results Hepatocellular section. carcinoma Other ascites INSERT PERIPHERAL IV Routine 04/15/2019 1:11 Res ults for this PM [employer] procedure are i n the results section. CBC W/PLT COUNT & Routine 04/15/2019 8:45 Result s for this AUTO DIFFERENTIAL AM [employer] procedure are in the results section. COMPREHENSIVE Routine 04/15/2019 8:45 Results fo r this METABOLIC PANEL AM [employer] procedure ar e in the results section. CBC W/PLT COUNT & Routine 04/15/2019 8:45 Result s for this AUTO DIFFERENTIAL AM [employer] procedure are in the results section. APTT Routine 04/15/2019 8:45 Results for this AM [employer] procedure are i n the results section. PROTHROMBIN TIME/INR Routine 04/15/2019 8:45 Res ults for this AM [employer] procedure are i n the results section. CT CHEST WITHOUT IV Routine 02/23/2019 11:45 Hepatocellular Re sults for this CONTRAST AM [employer] carcinoma procedure are in Chronic hepatitis C the resu lts without hepatic coma section . (HCC) NM BONE SCAN WHOLE Routine 02/11/2019 2:11 Hepatocellular Res ults for this BODY PM [employer] carcinoma procedure are in Chronic hepatitis C the resu lts without hepatic coma section . (HCC) MR ABDOMEN WITH & Routine 02/11/2019 11:42 Hepatocellular Resu lts for this WITHOUT IV CONTRAST AM [employer] carcinoma procedure are in Chronic hepatitis C the resu lts without hepatic coma section . (HCC) POCT-CREATININE Routine 02/11/2019 10:51 Results for this AM [employer] procedure are i n the results section. CBC W/PLT COUNT & Routine 02/11/2019 10:25 Hepatocellular Resu lts for this AUTO DIFFERENTIAL AM [employer] carcinoma procedure are in Chronic hepatitis C the resu lts without hepatic coma section . (HCC) PROTHROMBIN TIME/INR Routine 02/11/2019 10:25 Hepatocellular R esults for this AM PL[employer] T[employer]ER carcinoma procedure are in Chronic hepatitis C the resu lts without hepatic coma section . (HCC) HEPATIC FUNCTION Routine 02/11/2019 10:25 Hepatocellular Resul ts for this PANEL AM [employer] carcinoma procedure are in Chronic hepatitis C the resu lts without hepatic coma section . (HCC) CBC W/PLT COUNT & Routine 02/11/2019 10:25 Hepatocellular Resu lts for this AUTO DIFFERENTIAL AM [employer] carcinoma procedure are in Chronic hepatitis C the resu lts without hepatic coma section . (HCC) BASIC METABOLIC PANEL Routine 02/11/2019 10:25 Hepatocellular Results for this (7) AM [employer] carcinoma procedure are in Chronic hepatitis C the resu lts without hepatic coma section . (HCC) ALPHA FETOPROTEIN Routine 02/11/2019 10:25 Hepatocellular Resu lts for this (AFP), TUMOR MARKER AM [employer] carcinoma procedure are in Chronic hepatitis C the resu lts without hepatic coma section . (HCC) REPORT OF PROCEDURE - 01/06/2019 6:10 ENDOSCOPY URL PM CDT TISSUE EXAM AP Routine 01/06/2019 2:20 Results for this PM CDT procedure are i n the results section. COLONOSCOPY,SUBMUCOSA 01/06/2019 12:30 Adenomatous yohan yp of L INJECTION PM CDT sigmoid colon COLONOSCOPY,SUBMUCOSA 01/06/2019 12:30 Adenomatous yohan yp of L RESECTION PM CDT sigmoid colon POCT-GLUCOSE METER Routine 01/06/2019 11:35 Resul ts for this AM CDT procedure are i n the results section. CT CHEST WITHOUT IV Routine 11/05/2018 11:10 Hepatocellular Re sults for this CONTRAST AM CDT carcinoma (HCC) procedure are in Chronic hepatitis C the resu lts without hepatic coma section . (HCC) Hepatic cirrhosis, unspecified hepatic cirrhosis type, unspecified whether ascites present (HCC) MR ABDOMEN WITH & Routine 11/05/2018 10:28 Hepatocellular Resu lts for this WITHOUT IV CONTRAST AM CDT carcinoma (H CC) procedure are in Chronic hepatitis C the resu lts without hepatic coma section . (HCC) Hepatic cirrhosis, unspecified hepatic cirrhosis type, unspecified whether ascites present (HCC) POCT-CREATININE Routine 11/05/2018 10:03 Results for this AM CDT procedure are i n the results section. CBC W/PLT COUNT & Routine 11/05/2018 9:24 Hepatocellular Resu lts for this AUTO DIFFERENTIAL AM CDT carcinoma (HCC ) procedure are in Chronic hepatitis C the resu lts without hepatic coma section . (HCC) Hepatic cirrhosis, unspecified hepatic cirrhosis type, unspecified whether ascites present (HCC) PROTHROMBIN TIME/INR Routine 11/05/2018 9:24 Hepatocellular R esults for this AM CDT carcinoma (HCC) procedure are in Chronic hepatitis C the resu lts without hepatic coma section . (HCC) Hepatic cirrhosis, unspecified hepatic cirrhosis type, unspecified whether ascites present (HCC) HEPATIC FUNCTION Routine 11/05/2018 9:24 Hepatocellular Resul ts for this PANEL AM CDT carcinoma (HCC) procedure are in Chronic hepatitis C the resu lts without hepatic coma section . (HCC) Hepatic cirrhosis, unspecified hepatic cirrhosis type, unspecified whether ascites present (HCC) CBC W/PLT COUNT & Routine 11/05/2018 9:24 Hepatocellular Resu lts for this AUTO DIFFERENTIAL AM CDT carcinoma (HCC ) procedure are in Chronic hepatitis C the resu lts without hepatic coma section . (HCC) Hepatic cirrhosis, unspecified hepatic cirrhosis type, unspecified whether ascites present (HCC) BASIC METABOLIC PANEL Routine 11/05/2018 9:24 Hepatocellular Results for this (7) AM CDT carcinoma (HCC) procedure are in Chronic hepatitis C the resu lts without hepatic coma section . (HCC) Hepatic cirrhosis, unspecified hepatic cirrhosis type, unspecified whether ascites present (HCC) ALPHA FETOPROTEIN Routine 11/05/2018 9:24 Hepatocellular Resu lts for this (AFP), TUMOR MARKER AM CDT carcinoma (H CC) procedure are in Chronic hepatitis C the resu lts without hepatic coma section . (HCC) Hepatic cirrhosis, unspecified hepatic cirrhosis type, unspecified whether ascites present (HCC) after 09/18/2018 Results NM tumor localization SPECT (08/11/2019 3:37 PM CDT)Only the most recent of2 resultswithin the time period is included. Specimen Narrative Performed At FINAL REPORT [facility] PROCEDURE:TRAC ER DISTRIBUTION STUDY - SPECT (Bremsstrahlung) CPT CODE: 47844 CLINICAL INDICATION:Hepatoce llular carcinoma PROTOCOL:35.5 mCi of Y-90 micros pheres (SIR-Spheres) had been previously administered. SPECT imaging o f the liver and upper abdomen usingBremsstrahlung radiation was pe rformed approximately 45 minutes later without additional injecti on of radiopharmaceutical. FINDINGS: Tracer distribution in the vis ualized portion of the liver is irregular. No significant activity is noted outside of the liver. IMPRESSION:Appropriate tracer di stribution following right hepatic artery injection. Signed: Kelly Hill MD Report Verified Date/Time:08/12/2019 16:06:26 Reading Location: [address] Post-i Med Reading Room Procedure Note Interface, External Ris In - 08/12/2019 4:08 PM CDT FINAL REPORT PROCEDURE: TRACER DIS TRIBUTION STUDY - SPECT (Bremsstrahlung) CPT CODE: 92046 CLINICAL INDICATION: Hepatocellular carcinoma PROTOCOL: 35.5 mCi of Y-90 microspher es (SIR-Spheres) had been previously administered. SPECT imaging o f the liver and upper abdomen using Bremsstrahlung radiation was perf ormed approximately 45 minutes later without additional injecti on of radiopharmaceutical. FINDINGS: Tracer distribution in the vis ualized portion of the liver is irregular. No significant activity is noted outside of the liver. IMPRESSION: Appropriate tracer distri bution following right hepatic artery injection. Signed: Kelly Hill MD Report Verified Date/Time: 08/12/2019 1 6:06:26 Reading Location: [address] Post-i Med Reading Room Performing Organization Address City/State/Zipcode Phone Number [facility] NM Y90 MICROPSHERES THERAPY (08/11/2019 3:36 PM CDT) Specimen Narrative Performed At FINAL REPORT [facility] PROCEDURE:Y-90 michelle rosphere therapy (SIR-Spheres) CPT CODE: 57630 CLINICAL INDICATION: Hepatocellular carcinoma PROTOCOL: 35.5 mCi of a planned 37 m Ci dosage of Y-90 labeled microspheres (SIR-Spheres) was administe red by the nuclear medicine physician to the right lobe of the liver via a hepatic artery catheter placed by the interventional ra diologist. IMPRESSION: Y-90 microsphere therapy Signed: Kelly Hill MD Report Verified Date/Time:08/11/2019 16:19:17 Reading Location: [address] Nuc Med Reading Room Procedure Note Interface, External Ris In - 08/11/2019 4:21 PM CDT FINAL REPORT PROCEDURE: Y-90 microsp here therapy (SIR-Spheres) CPT CODE: 98266 CLINICAL INDICATION: Hepatocellular ca rcinoma PROTOCOL: 35.5 mCi of a planned 37 mCi dosage of Y-90 labeled microspheres (SIR-Spheres) was administe red by the nuclear medicine physician to the right lobe of the liver via a hepatic artery catheter placed by the interventional ra diologist. IMPRESSION: Y-90 microsphere therapy Signed: Kelly Hill MD Report Verified Date/Time: 08/11/2019 1 6:19:17 Reading Location: [address] Nuc Med Reading Room Performing Organization Address City/State/Zipcode Phone Number [facility] IR Visceral Arteriogram (08/11/2019 2:40 PM CDT)Only the most recent of2 resultswithin the time period is included. Specimen Narrative Performed At FINAL REPORT [facility] Procedure: Transarterial radio-embolizat ion of the liver. History: A 63-year-old female with hepat itis C, liver cirrhosis, multifocal hepatocellular carcinoma invo lving segments 5, 8, 4A, 4B and 3 on the recent MRI. Prior chemoembo lization on 08/30/2018 and 04/15/2019 with follow-up MRI on 05/27/2019 showed poor response to chemoembolization. The patient underwent mapping for Y 90 on July 12, 2019. Due to catheter migration during t echnetium injection, there was activity of the lesser curvature of the stomach. The patient returned today for re-mapping and treatm ent of the right lobe in 1 session. This is a combined dictation for the mapping and treatment. Professor Of Management: Randy Radford M.D. Automobile Mechanic Apprentice:Alex Ospina Modality: Sonography and fluoroscopy. DOSE REDUCTION: The examination was perf ormed according to departmental dose-optimization program. Fluoro time: 7.9 minutes Radiation dose: 111 mGy Kerma-area. Sedation: Versed 3.5 mg and Fentanyl 175 mcg was given intravenously for conscious sedation.Vital signs w ere monitored throughout the procedure by a dedicated RN under direct supervision of Dr. Radford, and remained stable. Physician intra-service sedation time wa s approximately 60 minutes. Number of images: 10 Anesthesia: Lidocaine local infiltration . Medicines: Ancef 2 g IV. Contrast medium: Isovue 300, 85 cc. Estimated blood loss:< 5 cc. Technique: A discussion of the risks, benefits, and alternatives was carried out with the patient. A written informed con sent was obtained. The patient expressed understanding and agre ed to proceed. A universal timeout was performed prior to starting the procedure. The procedure room personnel used person al protective equipment. The operators used sterile gowns and gloves. The patient was laid supine on the proce dure table. Bilateral groins were prepped with chlorhexidine gluconat e and draped in the maximal sterile fashion. The right common femoralartery was l ocalized using anatomic and ultrasonographic landmarks. The artery i s patent. Pertinent ultrasound images were stored for docume ntation in the PACS. Using aseptic precautions, real-time ultrasono graphic guidance, after local anesthesia and dermatotomy, the common f emoralartery was accessed with a micropuncture device. Eventually a 035 wire was placed using standard exchanges and advanced to proxi mal abdominal aorta under fluoroscopic guidance. Over the wire a 5 [place] vascular sheath was placed. The sheath was connected to a he parinized saline drip. Over the wire, a 5 [place] reverse curve catheter was placed. This was followed by selective catheteri zation of the following arteries: Celiac artery. This was followed by superselective cath eterization of the following arteries: Left hepatic artery and right hepatic artery. The equipment used for superselective ca theterization was SOS-omni selective 2 catheter, a Bentson wire. Th e equipment used for superselective catheterization was Progr eat catheter, Fathom wire. At each catheterization and superselecti ve catheterization, following test injection, a digital angiography ru n was performed. The anatomy has been described previousl y. On the left hepatic artery branch point location, technetium 99 MAA was injected by Dr. Hill of [facility]. The catheter was then advanced into the right hepatic artery branch point. Technetium 99 MAA was injected by Dr. Hill of nuclear medicine at this position also. The activity of technetium 99 MAA inject ed at each point is described in the nuclear medicine report. At this point, the catheter was withdraw n. The sheath was secured in position with silk suture and an aseptic dressing applied. The patient was taken to nuclear medicine fo r liver lung scan. The liver lung scan was favorable. The d etails are described separately in the nuclear medicine repor t. The patient was then brought back to ang iography. A universal timeout was performed prior to starting the procedure. The procedure room personnel used person al protective equipment. The operators used sterile gowns and gloves. The patient was laid supine on the proce dure table. Bilateral groins were prepped with chlorhexidine gluconat e and draped in the maximal sterile fashion. The existing vascular sheath was flushed with saline. Using a combination of a Bentson wire and a reve rse curve catheter, selective catheterization of the celiac artery was carried out and the position confirmed with a hand injected contrast run. This was followed by superselective catheterization of the [facility] hepatic artery branch point with a coaxial Pro great catheter and fathom wire. The position of the microcatheter was confirmed with hand injection run. This was followed by assembly of the adm inistration set and the administration of radio embolization age nt in collaboration with the nuclear medicine physician. The details of administration are report ed in the nuclear medicine report. The agent used was Y 90 resin microspher es At the end of the procedure the radiatio n contaminated equipment was discarded using the standard institution al protocol. The access site was closed using Angio-S eal. The patient was then transferred to the post procedure area for recovery. A bremsstrahlung scan was perf ormed. The patient was discharged home in stable condition afte r at least four hours of observation. Complications: None immediate. Findings: These have been described in the mapping angiogram. Impression: Successful mapping of the left hepatic a rtery and right hepatic artery. Successful transarterial radio embolizat ion of the right lobe of the liver as described above. The patient was discharged home in stabl e condition. The patient will return for Y 90 treatme nt of the left lobe of the liver. The plan is to use glass spheres. We will order 2 separate doses in the same session. One does will be administered through the middle hepatic artery. The other dose wi ll be administered through the left hepatic artery. Thank you for the opportunity to assist in the care of your patient. Signed: Randy Radford MD Report Verified Date/Time:08/11/2019 15:38:16 Reading Location: [place] [address] Angio Body Reading Room Procedure Note Interface, External Ris In - 08/11/2019 3:40 PM CDT FINAL REPORT Procedure: Transarterial radio-embolizat ion of the liver. History: A 63-year-old female with hepat itis C, liver cirrhosis, multifocal hepatocellular carcinoma invo lving segments 5, 8, 4A, 4B and 3 on the recent MRI. Prior chemoembo lization on 08/30/2018 and 04/15/2019 with follow-up MRI on 05/27/2019 showed poor response to chemoembolization. The patient underwent mapping for Y 90 on July 12, 2019. Due to catheter migration during t echnetium injection, there was activity of the lesser curvature of the stomach. The patient returned today for re-mapping and treatm ent of the right lobe in 1 session. This is a combined dictation for the map ping and treatment. Professor Of Management: Randy Radford M.D. Automobile Mechanic Apprentice: Alex Ospina Modality: Sonography and fluoroscopy. DOSE REDUCTION: The examination was perf ormed according to departmental dose-optimization program. Fluoro time: 7.9 minutes Radiation dose: 111 mGy Kerma-area. Sedation: Versed 3.5 mg and Fentanyl 175 mcg was given intravenously for conscious sedation. Vital signs wer e monitored throughout the procedure by a dedicated RN under direct supervision of Dr. Radford, and remained stable. Physician intra-service sedation time wa s approximately 60 minutes. Number of images: 10 Anesthesia: Lidocaine local infiltration . Medicines: Ancef 2 g IV. Contrast medium: Isovue 300, 85 cc. Estimated blood loss: < 5 cc. Technique: A discussion of the risks, benefits, and alternatives was carried out with the patient. A written informed con sent was obtained. The patient expressed understanding and agre ed to proceed. A universal timeout was performed prior to starting the procedure. The procedure room personnel used person al protective equipment. The operators used sterile gowns and gloves. The patient was laid supine on the [facility] dure table. Bilateral groins were prepped with chlorhexidine gluconat e and draped in the maximal sterile fashion. The right common femoral artery was loc alized using anatomic and ultrasonographic landmarks. The artery i s patent. Pertinent ultrasound images were stored for docume ntation in the PACS. Using aseptic precautions, real-time ultrasono graphic guidance, after local anesthesia and dermatotomy, the common f emoral artery was accessed with a micropuncture device. Eventually a 035 wire was placed using standard exchanges and advanced to proxi mal abdominal aorta under fluoroscopic guidance. Over the wire a 5 [place] vascular sheath was placed. The sheath was connected to a he parinized saline drip. Over the wire, a 5 [place] reverse curve catheter was placed. This was followed by selective catheteri zation of the following arteries: Celiac artery. This was followed by superselective cath eterization of the following arteries: Left hepatic artery and right hepatic artery. The equipment used for superselective ca theterization was SOS-omni selective 2 catheter, a Bentson wire. e equipment used for superselective catheterization was Progr eat catheter, Fathom wire. At each catheterization and superselecti ve catheterization, following test injection, a digital angiography ru n was performed. The anatomy has been described previousl y. On the left hepatic artery branch point location, technetium 99 MAA was injected by Dr. Hill of [facility]. The catheter was then advanced into the right hepatic artery branch point. Technetium 99 MAA was injected by Dr. Hill of nuclear medicine at this position also. The activity of technetium 99 MAA inject ed at each point is described in the nuclear medicine report. At this point, the catheter was withdraw n. The sheath was secured in position with silk suture and an aseptic dressing applied. The patient was taken to nuclear medicine fo r liver lung scan. The liver lung scan was favorable. The d etails are described separately in the nuclear medicine repor t. The patient was then brought back to ang iography. A universal timeout was performed prior to starting the procedure. The procedure room personnel used person al protective equipment. The operators used sterile gowns and gloves. The patient was laid supine on the [facility] dure table. Bilateral groins were prepped with chlorhexidine gluconat e and draped in the maximal sterile fashion. The existing vascular sheath was flushed with saline. Using a combination of a Bentson wire and a reve rse curve catheter, selective catheterization of the celiac artery was carried out and the position confirmed with a hand injected contrast run. This was followed by superselective catheterization of the [facility] hepatic artery branch point with a coaxial Pro great catheter and fathom wire. The position of the microcatheter was confirmed with hand injection run. This was followed by assembly of the adm inistration set and the administration of radio embolization age nt in collaboration with the nuclear medicine physician. The details of administration are report ed in the nuclear medicine report. The agent used was Y 90 resin microspher es At the end of the procedure the radiatio n contaminated equipment was discarded using the standard institution al protocol. The access site was closed using Angio-S eal. The patient was then transferred to the post procedure area for recovery. A bremsstrahlung scan was perf ormed. The patient was discharged home in stable condition afte r at least four hours of observation. Complications: None immediate. Findings: These have been described in the mapping angiogram. Impression: Successful mapping of the left hepatic a rtery and right hepatic artery. Successful transarterial radio embolizat ion of the right lobe of the liver as described above. The patient was discharged home in stabl e condition. The patient will return for Y 90 treatme nt of the left lobe of the liver. The plan is to use glass spheres. We will order 2 separate doses in the same session. One does will be administered through the middle hepatic artery. The other dose wi ll be administered through the left hepatic artery. Thank you for the opportunity to assist in the care of your patient. Signed: Randy Radford MD Report Verified Date/Time: 08/11/2019 1 5:38:16 Reading Location: [facility] B1 P048 Angio Body Reading Room Performing Organization Address City/State/Zipcode Phone Number [place] tumor localization multiple (08/11/2019 12:40 PM CDT) Specimen Narrative Performed At FINAL REPORT [facility] PROCEDURE: TRACER DISTRIBUTION STUDY , WHOLE BODY with SPECT CPT CODE: 33096, [id number] CLINICAL INDICATION: Hepatocellular carcinoma PROTOCOL: 2.7 mCi of Tc-99m MAA was injected by the nuclear medicine physician via an arterial travis ter placed by the interventional radiologist in the right hepatic artery. Subsequently, 2.7 mCi of Tc-90 9M MAA wa s also injected by the nuclear medicine physician via a hepatic catheter placed by the interventional radiologist in the left h epatic artery. Planar spot images of the chest and upper abdomen, a s well as tomographic images of the liver and upper abdomen with limi geno CT correlation were obtained.Hepatopulmonary shunting wa s calculated by the geometric mean method. FINDINGS: There is very irregular tracer distribution within the liver, with greatest uptake in the left lobe.There is mild tracer uptake in the gallbladder fossa. Otherwi se, there is no tracer distribution outside of the liver in the abdomen. Quantitative analysis indicates 5% shunt ing of tracer to the lungs. IMPRESSION: 1. Tracer uptake in the liver is consist ent with focal space occupying disease. 2.No activity is noted in the stomac h on this study. The patient is an acceptable candidate for injection of therapeutic microspheres by this criterion. 3.Shunting to the lungs is in an acc eptable range for therapy. Signed: Kelly Hill MD Report Verified Date/Time:08/11/2019 16:15:18 Reading Location: [facility] 3rd Flr P327B Nuc Med Reading Room Procedure Note Interface, External Ris In - 08/11/2019 4:17 PM CDT FINAL REPORT PROCEDURE: TRACER DISTRIBUTION STUDY, WHOLE BODY with SPECT CPT CODE: 97155, [id number] CLINICAL INDICATION: Hepatocellular ca rcinoma PROTOCOL: 2.7 mCi of Tc-99m MAA was in jected by the nuclear medicine physician via an arterial travis ter placed by the interventional radiologist in the right hepatic artery. Subsequently, 2.7 mCi of Tc-90 9M MAA wa s also injected by the nuclear medicine physician via a hepatic catheter placed by the interventional radiologist in the left h epatic artery. Planar spot images of the chest and upper abdomen, a s well as tomographic images of the liver and upper abdomen with limi geno CT correlation were obtained. Hepatopulmonary shunting was calculated by the geometric mean method. FINDINGS: There is very irregular tracer distribution within the liver, with greatest uptake in the left lobe. There is mild tracer uptake in the gallbladder fossa. Otherwi se, there is no tracer distribution outside of the liver in the abdomen. Quantitative analysis indicates 5% shunt ing of tracer to the lungs. IMPRESSION: 1. Tracer uptake in the liver is consist ent with focal space occupying disease. 2. No activity is noted in the stomach on this study. The patient is an acceptable candidate for injection of therapeutic microspheres by this criterion. 3. Shunting to the lungs is in an accep table range for therapy. Signed: Kelly Hill MD Report Verified Date/Time: 08/11/2019 1 6:15:18 Reading Location: [address] Reading Room Performing Organization Address City/State/Zipcode Phone Number [facility] IR Embolization Arterial (08/11/2019 11:26 AM CDT)Only the most recent of2 resultswithin the time period is included. Specimen Narrative Performed At FINAL REPORT [facility] Procedure: Transarterial radio-embolizat ion of the liver. History: A 63-year-old female with hepat itis C, liver cirrhosis, multifocal hepatocellular carcinoma invo lving segments 5, 8, 4A, 4B and 3 on the recent MRI. Prior chemoembo lization on 08/30/2018 and 04/15/2019 with follow-up MRI on 05/27/2019 showed poor response to chemoembolization. The patient underwent mapping for Y 90 on July 12, 2019. Due to catheter migration during t echnetium injection, there was activity of the lesser curvature of the stomach. The patient returned today for re-mapping and treatm ent of the right lobe in 1 session. This is a combined dictation for the mapping and treatment. Professor Of Management: Randy Radford M.D. Automobile Mechanic Apprentice:Alex Ospina Modality: Sonography and fluoroscopy. DOSE REDUCTION: The examination was perf ormed according to departmental dose-optimization program. Fluoro time: 7.9 minutes Radiation dose: 111 mGy Kerma-area. Sedation: Versed 3.5 mg and Fentanyl 175 mcg was given intravenously for conscious sedation.Vital signs w ere monitored throughout the procedure by a dedicated RN under direct supervision of Dr. Radford, and remained stable. Physician intra-service sedation time wa s approximately 60 minutes. Number of images: 10 Anesthesia: Lidocaine local infiltration . Medicines: Ancef 2 g IV. Contrast medium: Isovue 300, 85 cc. Estimated blood loss:< 5 cc. Technique: A discussion of the risks, benefits, and alternatives was carried out with the patient. A written informed con sent was obtained. The patient expressed understanding and agre ed to proceed. A universal timeout was performed prior to starting the procedure. The procedure room personnel used person al protective equipment. The operators used sterile gowns and gloves. The patient was laid supine on the proce dure table. Bilateral groins were prepped with chlorhexidine gluconat e and draped in the maximal sterile fashion. The right common femoralartery was l ocalized using anatomic and ultrasonographic landmarks. The artery i s patent. Pertinent ultrasound images were stored for docume ntation in the PACS. Using aseptic precautions, real-time ultrasono graphic guidance, after local anesthesia and dermatotomy, the common f emoralartery was accessed with a micropuncture device. Eventually a 035 wire was placed using standard exchanges and advanced to proxi mal abdominal aorta under fluoroscopic guidance. Over the wire a 5 [place]an vascular sheath was placed. The sheath was connected to a he parinized saline drip. Over the wire, a 5 [place]an reverse curve catheter was placed. This was followed by selective catheteri zation of the following arteries: Celiac artery. This was followed by superselective cath eterization of the following arteries: Left hepatic artery and right hepatic artery. The equipment used for superselective ca theterization was SOS-omni selective 2 catheter, a [email or web address] wire. Th e equipment used for superselective catheterization was Progr eat catheter, Fathom wire. At each catheterization and superselecti ve catheterization, following test injection, a digital angiography ru n was performed. The anatomy has been described previousl y. On the left hepatic artery branch point location, technetium 99 MAA was injected by Dr. Hill of [facility]. The catheter was then advanced into the right hepatic artery branch point. Technetium 99 MAA was injected by Dr. Hill of nuclear medicine at this position also. The activity of technetium 99 MAA inject ed at each point is described in the nuclear medicine report. At this point, the catheter was withdraw n. The sheath was secured in position with silk suture and an aseptic dressing applied. The patient was taken to nuclear medicine fo r liver lung scan. The liver lung scan was favorable. The d etails are described separately in the nuclear medicine repor t. The patient was then brought back to [facility] iography. A universal timeout was performed prior to starting the procedure. The procedure room personnel used person al protective equipment. The operators used sterile gowns and gloves. The patient was laid supine on the [facility] dure table. Bilateral groins were prepped with chlorhexidine gluconat e and draped in the maximal sterile fashion. The existing vascular sheath was flushed with saline. Using a combination of a Bentson wire and a reve rse curve catheter, selective catheterization of the celiac artery was carried out and the position confirmed with a hand injected contrast run. This was followed by superselective catheterization of the [facility] hepatic artery branch point with a coaxial Pro great catheter and fathom wire. The position of the microcatheter was confirmed with hand injection run. This was followed by assembly of the adm inistration set and the administration of radio embolization age nt in collaboration with the nuclear medicine physician. The details of administration are report ed in the nuclear medicine report. The agent used was Y 90 resin microspher es At the end of the procedure the radiatio n contaminated equipment was discarded using the standard institution al protocol. The access site was closed using Angio-S eal. The patient was then transferred to the post procedure area for recovery. A bremsstrahlung scan was perf ormed. The patient was discharged home in stable condition afte r at least four hours of observation. Complications: None immediate. Findings: These have been described in the mapping angiogram. Impression: Successful mapping of the left hepatic a rtery and right hepatic artery. Successful transarterial radio embolizat ion of the right lobe of the liver as described above. The patient was discharged home in stabl e condition. The patient will return for Y 90 treatme nt of the left lobe of the liver. The plan is to use glass spheres. We will order 2 separate doses in the same session. One does will be administered through the middle hepatic artery. The other dose wi ll be administered through the left hepatic artery. Thank you for the opportunity to assist in the care of your patient. Signed: Randy Radford MD Report Verified Date/Time:08/11/2019 15:38:16 Reading Location: [place] [id number] Angio Body Reading Room Procedure Note Interface, External Ris In - 08/11/2019 3:40 PM CDT FINAL REPORT Procedure: Transarterial radio-embolizat ion of the liver. History: A 63-year-old female with hepat itis C, liver cirrhosis, multifocal hepatocellular carcinoma invo lving segments 5, 8, 4A, 4B and 3 on the recent MRI. Prior chemoembo lization on 08/30/2018 and 04/15/2019 with follow-up MRI on 05/27/2019 showed poor response to chemoembolization. The patient underwent mapping for Y 90 on July 12, 2019. Due to catheter migration during t echnetium injection, there was activity of the lesser curvature of the stomach. The patient returned today for re-mapping and treatm ent of the right lobe in 1 session. This is a combined dictation for the map ping and treatment. Professor Of Management: Randy Radford M.D. Automobile Mechanic Apprentice: Alex Ospina Modality: Sonography and fluoroscopy. DOSE REDUCTION: The examination was perf ormed according to departmental dose-optimization program. Fluoro time: 7.9 minutes Radiation dose: 111 mGy Kerma-area. Sedation: Versed 3.5 mg and Fentanyl 175 mcg was given intravenously for conscious sedation. Vital signs wer e monitored throughout the procedure by a dedicated RN under direct supervision of Dr. Radford, and remained stable. Physician intra-service sedation time wa s approximately 60 minutes. Number of images: 10 Anesthesia: Lidocaine local infiltration . Medicines: Ancef 2 g IV. Contrast medium: Isovue 300, 85 cc. Estimated blood loss: < 5 cc. Technique: A discussion of the risks, benefits, and alternatives was carried out with the patient. A written informed con sent was obtained. The patient expressed understanding and agre ed to proceed. A universal timeout was performed prior to starting the procedure. The procedure room personnel used person al protective equipment. The operators used sterile gowns and gloves. The patient was laid supine on the [facility] dure table. Bilateral groins were prepped with chlorhexidine gluconat e and draped in the maximal sterile fashion. The right common femoral artery was loc alized using anatomic and ultrasonographic landmarks. The artery i s patent. Pertinent ultrasound images were stored for docume ntation in the PACS. Using aseptic precautions, real-time ultrasono graphic guidance, after local anesthesia and dermatotomy, the common f emoral artery was accessed with a micropuncture device. Eventually a 035 wire was placed using standard exchanges and advanced to proxi mal abdominal aorta under fluoroscopic guidance. Over the wire a 5 [place]wanan vascular sheath was placed. The sheath was connected to a he parinized saline drip. Over the wire, a 5 [place]wanan reverse curve catheter was placed. This was followed by selective catheteri zation of the following arteries: Celiac artery. This was followed by superselective cath eterization of the following arteries: Left hepatic artery and right hepatic artery. The equipment used for superselective ca theterization was SOS-omni selective 2 catheter, a Bentson wire. e equipment used for superselective catheterization was Progr eat catheter, Fathom wire. At each catheterization and superselecti ve catheterization, following test injection, a digital angiography ru n was performed. The anatomy has been described previousl y. On the left hepatic artery branch point location, technetium 99 MAA was injected by Dr. Hill of [facility]. The catheter was then advanced into the right hepatic artery branch point. Technetium 99 MAA was injected by Dr. Hill of nuclear medicine at this position also. The activity of technetium 99 MAA inject ed at each point is described in the nuclear medicine report. At this point, the catheter was withdraw n. The sheath was secured in position with silk suture and an aseptic dressing applied. The patient was taken to nuclear medicine fo r liver lung scan. The liver lung scan was favorable. The d etails are described separately in the nuclear medicine repor t. The patient was then brought back to [facility] iography. A universal timeout was performed prior to starting the procedure. The procedure room personnel used person al protective equipment. The operators used sterile gowns and gloves. The patient was laid supine on the [facility] dure table. Bilateral groins were prepped with chlorhexidine gluconat e and draped in the maximal sterile fashion. The existing vascular sheath was flushed with saline. Using a combination of a Bentson wire and a reve rse curve catheter, selective catheterization of the celiac artery was carried out and the position confirmed with a hand injected contrast run. This was followed by superselective catheterization of the [facility] branch point with a coaxial Pro great catheter and fathom wire. The position of the microcatheter was confirmed with hand injection run. This was followed by assembly of the adm inistration set and the administration of radio embolization age nt in collaboration with the nuclear medicine physician. The details of administration are report ed in the nuclear medicine report. The agent used was Y 90 resin microspher es At the end of the procedure the radiatio n contaminated equipment was discarded using the standard institution al protocol. The access site was closed using Angio-S eal. The patient was then transferred to the post procedure area for recovery. A bremsstrahlung scan was perf ormed. The patient was discharged home in stable condition afte r at least four hours of observation. Complications: None immediate. Findings: These have been described in the mapping angiogram. Impression: Successful mapping of the left hepatic a rtery and right hepatic artery. Successful transarterial radio embolizat ion of the right lobe of the liver as described above. The patient was discharged home in stabl e condition. The patient will return for Y 90 treatme nt of the left lobe of the liver. The plan is to use glass spheres. We will order 2 separate doses in the same session. One does will be administered through the middle hepatic artery. The other dose wi ll be administered through the left hepatic artery. Thank you for the opportunity to assist in the care of your patient. Signed: Randy Radofrd MD Report Verified Date/Time: 08/11/2019 1 5:38:16 Reading Location: [facility] P048 Angio Body Reading Room Performing Organization Address City/State/Zipcode Phone Number GE RIS CBC with platelet count + automated diff (08/11/2019 7:36 AM CDT)Only the most recent of6 resultswithin the time period is included. WBC 3.9 3.5 - 10.5 K/L [facility] RBC 3.67 (L) 3.93 - 5.22 M/L [facility] Hemoglobin 8.9 (L) 11.2 - 15.7 GM/DL [facility] Hematocrit 29.2 (L) 34.1 - 44.9 % [facility] MCV 79.6 79.4 - 94.[address] [facility] MCH 24.3 (L) 25.6 - 32.[address] [facility] MCHC 30.5 (L) 32.2 - 35.5 GM/DL [facility] RDW 14.3 11.7 - 14.4 % [facility] Platelets 81 (L) 150 - 450 K/CU MM [facility] MPV 9.8 9.4 - 12.[address] [facility] nRBC 0 0 - 0 /[address] [facility] % Neutros 80 % [facility] % Lymphs 9 % [facility] % Monos 9 % [facility] % Eos 1 % [facility] % Baso 0 % [facility] # Neutros 3.09 1.56 - 6.13 K/L [facility] # Lymphs 0.35 (L) 1.18 - 3.74 K/L [facility] # Monos 0.36 0.24 - 0.36 K/L [facility] # Eos 0.05 0.04 - 0.36 K/L [facility] # Baso 0.01 0.01 - 0.08 K/L [facility] Immature Granulocytes-Relative 0 0 - 1 % C [facility] Specimen Blood Performing Organization Address City/[facility] Phone Number [address] [address] CENTER aPTT (08/11/2019 7:36 AM CDT)Only the most recent of3 resultswithin the time period is included. PTT 33.0 22.5 - 36.0 seconds [facility] Specimen Blood Performing Organization Address [facility] Phone Number [address] [address] [place] Prothrombin time/INR (08/11/2019 7:36 AM CDT)Only the most recent of6 results within the time period is included. Protime 14.9 (H) 11.9 - 14.2 seconds [facility] INR 1.2 <=5.9 [facility] Specimen Blood Narrative Performed At Effective 08/04/2018: PT Reference Range [facility] Change New: 11.9-14.2Previous: 11.7-14.7 RECOMMENDED COUMADIN/WARFARIN INR THERAPY RANGES STANDARD DOSE: 2.0-3.0Includes: PROPHYLAXIS for venous thrombosis, systemic embolization; TREATMENT for venous thrombosis and/or pulmonary embolus. HIGH RISK: Target INR is 2.5-3.5 for patients wiht mechanical heart valves. Performing Organization Address City/[facility] Phone Number [address] [address] CENTER Bilirubin, direct (08/11/2019 7:36 AM CDT)Only the most recent of2 results within the time period is included. Bilirubin, Direct 0.3 0.1 - 0.5 mg/dL [facility] Specimen Blood Narrative Performed At Ultrasound Spec ID - [facility] Performing Organization Address City/State/Zipcode Phone Number [facility] [address] [place] [address] CENTER Comprehensive metabolic panel (08/11/2019 7:36 AM CDT)Only the most recent of3 resultswithin the time period is included. Protein, Total 6.5 6.0 - 8.3 gm/dL [facility] Albumin 3.4 (L) 3.5 - 5.0 g/dL [facility] Alkaline Phosphatase 150 40 - 150 U/L [facility] Total Bilirubin 0.5 0.2 - 1.2 mg/dL [facility] Sodium 136 136 - 145 meq/L [facility] Potassium 3.9 3.5 - 5.1 meq/L [facility] Chloride 100 98 - 107 meq/L [facility] CO2 29 22 - 29 meq/L [facility] BUN 17 7 - 21 mg/dL [facility] Creatinine 0.86 0.57 - 1.25 mg/dL [facility] Glucose 113 (H) 70 - 105 mg/dL [facility] Calcium 8.5 8.4 - 10.2 mg/dL [facility] AST 20 5 - 34 U/L [facility] ALT 15 6 - 55 U/L [facility] EGFR 66Comment: ESTIMATED GFR mL/min/1.73 sq m [facility] IS NOT ACCURATE [facility] CREATININE CLEARANCE IN PREDICTING GLOMERULAR FILTRATION RATE. ESTIMATED GFR IS NOT APPLICABLE FOR DIALYSIS PATIENTS. Specimen Blood Narrative Performed At Ultrasound Spec ID - AAHAMID [facility] Performing Organization Address City/[facility] Phone Number [address] [address] CENTER Alpha fetoprotein (AFP), tumor marker (05/27/2019 11:23 AM CDT)Only the most recent of3 resultswithin the time period is included. Alpha-Fetoprotein 16.8 (H) <10.0 ng/mL [facility] Specimen Blood Narrative Performed At Ultrasound Spec ID - NTP [facility] Performing Organization Address [facility] Phone Number [address] [address] [place] Hepatic function panel (05/27/2019 11:23 AM CDT)Only the most recent of3 results within the time period is included. Protein, Total 7.1 6.0 - 8.3 gm/dL [facility] Albumin 3.9 3.5 - 5.0 g/dL [facility] Total Bilirubin 0.7 0.2 - 1.2 mg/dL [facility] Bilirubin, Direct 0.4 0.1 - 0.5 mg/dL [facility] Alkaline Phosphatase 138 40 - 150 U/L [facility] AST 20 5 - 34 U/L [facility] ALT 17 6 - 55 U/L [facility] Specimen Blood Narrative Performed At Ultrasound Spec ID - NTP [facility] Performing Organization Address [facility] Phone Number [address] [address] [place] Basic Metabolic Panel (05/27/2019 11:23 AM CDT)Only the most recent of3 results within the time period is included. Sodium 136 136 - 145 meq/L [facility] Potassium 3.9 3.5 - 5.1 meq/L [facility] Chloride 106 98 - 107 meq/L [facility] CO2 22 22 - 29 meq/L [facility] BUN 14 7 - 21 mg/dL [facility] Creatinine 0.92 0.57 - 1.25 mg/dL [facility] Glucose 192 (H) 70 - 105 mg/dL [facility] Calcium 9.0 8.4 - 10.2 mg/dL [facility] EGFR 61Comment: ESTIMATED GFR IS mL/min/1.73 sq m [facility] NOT ACCURATE CREATININE [facility] CLEARANCE IN PREDICTING GLOMERULAR FILTRATION RATE. ESTIMATED GFR IS NOT APPLICABLE FOR DIALYSIS PATIENTS. Specimen Blood Narrative Performed At Ultrasound Spec ID - NTP [facility] Performing Organization Address City/State/Zipcode Phone Number [facility] [address] [place] [address] [place] [address] chest without IV contrast (05/27/2019 11:00 AM CDT)Only the most recent of3 resultswithin the time period is included. Specimen Narrative Performed At FINAL REPORT [facility] CT OF THE CHEST CLINICAL HISTORY:HCC, Cirrhosis TECHNIQUE: CT of the chest is performed without intravenous contrast administration. This exam was performed according to our departmental dose-optimization program which includes automated exposure control, adjustment of the mA and/or kV according to patient size and/or use of iterative reconstruction technique. COMPARISON FILM:CT scan of the chest dated 02/23/2019 DISCUSSION: LINES/TUBES: None LUNGS/AIRWAYS: The trachea and central a irways are patent. Lungs are clear. PLEURA: No pleural effusion or pneumotho rax. HEART AND MEDIASTINUM: Within normal vera its. BONES AND SOFT TISSUES: Mild degenerativ e changes are seen in the spine. Degenerative changes are also see n in the shoulders. Soft tissues are unremarkable. UPPER ABDOMEN: The liver is cirrhotic. S everal granulomas are seen in the liver. Sludge/stones are partially v isualized in the visualized portions of the gallbladder. IMPRESSION: 1. Cirrhotic liver. 2. Clear lungs. Signed: Brandy Rivas MD Report Verified Date/Time:05/27/2019 11:55:12 Reading Location: [address] Radiolog y Reading Room Procedure Note Interface, External Ris In - 05/27/2019 11:57 AM CDT FINAL REPORT CT OF THE CHEST CLINICAL HISTORY: HCC, Cirrhosis TECHNIQUE: CT of the chest is performed without intravenous contrast administration. This exam was performed according to our departmental dose-optimization program which includes automated exposure control, adjustment of the mA and/or kV according to patient size and/or use of iterative reconstruction technique. COMPARISON FILM: CT scan of the chest d ated 02/23/2019 DISCUSSION: LINES/TUBES: None LUNGS/AIRWAYS: The trachea and central a irways are patent. Lungs are clear. PLEURA: No pleural effusion or pneumotho rax. HEART AND MEDIASTINUM: Within normal vera its. BONES AND SOFT TISSUES: Mild degenerativ e changes are seen in the spine. Degenerative changes are also see n in the shoulders. Soft tissues are unremarkable. UPPER ABDOMEN: The liver is cirrhotic. S everal granulomas are seen in the liver. Sludge/stones are partially v isualized in the visualized portions of the gallbladder. IMPRESSION: 1. Cirrhotic liver. 2. Clear lungs. Signed: Brandy Rivas MD Report Verified Date/Time: 05/27/2019 1 1:55:12 Reading Location: [address] Radiolog y Reading Room Performing Organization Address City/State/Zipcode Phone Number [place] MR abdomen without & with IV contrast (05/27/2019 10:23 AM CDT)Only the most recent of3 resultswithin the time period is included. Specimen Narrative Performed At FINAL REPORT [facility] TECHNIQUE: MRI of the abdomen WITHOUT an d WITH intravenous contrast. INDICATION: HCC,hcv,cirrhosis. COMPARISON: MRI from 02/11/2019. FINDINGS: LOWER THORAX: Unremarkable. LIVER: Nodular, cirrhotic liver. Arteria l enhancing liver lesions as follow: *An arterially enhancing lesion in segme nt V on axial arterial phase image 79 measures 1.5 cm without washout or pseudocapsule formation. This is recurrent tumor at a prior embol ization site. *An arterially enhancing lesion in segme nt IV arterially enhances, washes out, and forms a pseudocapsule. T his measures 2 cm on axial delayed phase image 82, previously 1.7 c m. *The previously seen area of arterial en hancement, washout, and pseudocapsule formation in segment III n ow has two separate foci of arterial enhancement which measure 0.5 c m and 0.6 cm with washout, most consistent with a small amount of r esidual tumor as best seen on axial arterial phase image 64. *An area of arterial phase enhancement w ith washout in segment IV measures 1.3 cm on axial arterial phase image 37, previously 1 cm. No pseudocapsule formation. *An area of arterial phase peripheral en hancement in segment VIII on axial arterial phase image 35 measures 1 .2 cm with washout, unchanged. No pseudocapsule formation. *Additional scattered areas of arterial phase hyperenhancement at the periphery of segment segment VII are non specific and may be perfusional. *An area of arterial phase hyperenhancem ent in segment V measures 0.9 cm on axial arterial phase image 72, unc hanged. No definite washout or pseudocapsule formation. *An area of arterial phase hyperenhancem ent in segment 5 measures 0.6 cm on axial arterial phase image 89, new . No definite washout or pseudocapsule formation. *An area of arterial phase hyperenhancem ent in segment V measures 0.6 cm on axial arterial phase image 91, pre viously 0.4 cm. no definite washout or pseudocapsule formation. *An arterially enhancing focus in segmen t IV measures 0.6 cm on axial arterial phase image 73, new. No washout is a calcification. A cyst in segment V measures 0.7 cm. BILIARY: The gallbladder is filled with stones. No biliary ductal dilatation or filling defect. SPLEEN: 16.4 cm splenomegaly. PANCREAS: No focal masses or ductal dila tation. Cysts in the pancreatic tail measure 0.9 cm and 0.7 c m, unchanged. A cystic lesion in the pancreatic head measures 1.1 cm a nd is unchanged. ADRENALS: No adrenal nodules. KIDNEYS/URETERS: No hydronephrosis or so lid mass lesions. PERITONEUM/RETROPERITONEUM: Trace free f luid in the pelvis. LYMPH NODES: No lymphadenopathy. VESSELS: Retroaortic left renal vein. Co nventional hepatic arterial anatomy. Small esophageal varices. The m ain portal vein is patent and measures 1.5 cm in diameter. GI TRACT: No distention or wall thickeni ng. BONES AND SOFT TISSUES: Unremarkable. IMPRESSION: 1.There are three foci of hepatocellular carcinoma which measure 1.5 cm, 2 cm, and 0.6 cm. The 1.5 cm area in segment V and 0.6 cm area in segment III are residual disease. The 2 cm area is in segment IV. 2.There are two additional areas which a re concerning for but not diagnostic of hepatocellular carcinoma w hich measure 1.2 cm and 1 cm in segments VIII and IV, respectively. 3.Cirrhosis with sequelae of portal hype rtension including splenomegaly and small esophageal varice s. 4.The pancreatic cysts measure up to 1.1 cm and are unchanged. 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 No ductal dilation or nodular component to suggest malignant transformation. Signed: Jose D Rivers MD Report Verified Date/Time:05/27/2019 13:08:16 Reading Location: [facility] Reading Room - [place] [address] Procedure Note Interface, External Ris In - 05/27/2019 1:10 PM CDT FINAL REPORT TECHNIQUE: MRI of the abdomen WITHOUT an d WITH intravenous contrast. INDICATION: HCC,hcv,cirrhosis. COMPARISON: MRI from 02/11/2019. FINDINGS: LOWER THORAX: Unremarkable. LIVER: Nodular, cirrhotic liver. Arteria l enhancing liver lesions as follow: *An arterially enhancing lesion in segme nt V on axial arterial phase image 79 measures 1.5 cm without washout or pseudocapsule formation. This is recurrent tumor at a prior embol ization site. *An arterially enhancing lesion in segme nt IV arterially enhances, washes out, and forms a pseudocapsule. T his measures 2 cm on axial delayed phase image 82, previously 1.7 c m. *The previously seen area of arterial en hancement, washout, and pseudocapsule formation in segment III n ow has two separate foci of arterial enhancement which measure 0.5 c m and 0.6 cm with washout, most consistent with a small amount of r esidual tumor as best seen on axial arterial phase image 64. *An area of arterial phase enhancement w ith washout in segment IV measures 1.3 cm on axial arterial phase image 37, previously 1 cm. No pseudocapsule formation. *An area of arterial phase peripheral en hancement in segment VIII on axial arterial phase image 35 measures 1 .2 cm with washout, unchanged. No pseudocapsule formation. *Additional scattered areas of arterial phase hyperenhancement at the periphery of segment segment VII are non specific and may be perfusional. *An area of arterial phase hyperenhancem ent in segment V measures 0.9 cm on axial arterial phase image 72, unc hanged. No definite washout or pseudocapsule formation. *An area of arterial phase hyperenhancem ent in segment 5 measures 0.6 cm on axial arterial phase image 89, new . No definite washout or pseudocapsule formation. *An area of arterial phase hyperenhancem ent in segment V measures 0.6 cm on axial arterial phase image 91, pre viously 0.4 cm. no definite washout or pseudocapsule formation. *An arterially enhancing focus in segmen t IV measures 0.6 cm on axial arterial phase image 73, new. No washout is a calcification. A cyst in segment V measures 0.7 cm. BILIARY: The gallbladder is filled with stones. No biliary ductal dilatation or filling defect. SPLEEN: 16.4 cm splenomegaly. PANCREAS: No focal masses or ductal dila tation. Cysts in the pancreatic tail measure 0.9 cm and 0.7 c m, unchanged. A cystic lesion in the pancreatic head measures 1.1 cm a nd is unchanged. ADRENALS: No adrenal nodules. KIDNEYS/URETERS: No hydronephrosis or so lid mass lesions. PERITONEUM/RETROPERITONEUM: Trace free f luid in the pelvis. LYMPH NODES: No lymphadenopathy. VESSELS: Retroaortic left renal vein. Co nventional hepatic arterial anatomy. Small esophageal varices. The m ain portal vein is patent and measures 1.5 cm in diameter. GI TRACT: No distention or wall thickeni ng. BONES AND SOFT TISSUES: Unremarkable. IMPRESSION: 1.There are three foci of hepatocellular carcinoma which measure 1.5 cm, 2 cm, and 0.6 cm. The 1.5 cm area in segment V and 0.6 cm area in segment III are residual disease. The 2 cm area is in segment IV. 2.There are two additional areas which a re concerning for but not diagnostic of hepatocellular carcinoma w hich measure 1.2 cm and 1 cm in segments VIII and IV, respectively. 3.Cirrhosis with sequelae of portal hype rtension including splenomegaly and small esophageal varice s. 4.The pancreatic cysts measure up to 1.1 cm and are unchanged. 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 No ductal dilation or nodular component to suggest malignant transformation. Signed: Jose D Rivers MD Report Verified Date/Time: 05/27/2019 1 3:08:16 Reading Location: [facility] Reading Room - [place] [address] Performing Organization Address City/[facility]/Zipcode Phone Number [place] POC-Creatinine (05/27/2019 9:55 AM CDT)Only the most recent of3 resultswithin the time period is included. POC-Creatinine 0.8Comment: : TESTED AT 0.6 - 1.3 mg/dL [facility] [address] [place] [address], [id number]: Ultrasound Spec/Keypunch Operators Supervisor ID = [id number] for DemetraDenJay Mee POC-EGFR 72 mL/min/1.73M2 [facility] Specimen Blood Performing Organization Address City/[facility]/Zipcode Phone Number [address] abdomen without IV contrast (04/15/2019 1:46 PM PLANT TENDER) Specimen Narrative Performed At FINAL REPORT [place] TECHNIQUE: CT of the abdomen WITHOUT int ravenous contrast and WITHOUT oral contrast. Dose modulation, iterativ e reconstruction, and/or weight-based adjustment of the mA/kV was utilized to reduce the radiation dose to as low as reasonably a chievable. INDICATION: Liver mets, presurgical asse ssment. COMPARISON: MRI from 02/11/2019. FINDINGS: ABSENCE OF INTRAVENOUS CONTRAST DECREASE S SENSITIVITY FOR DETECTION OF FOCAL LESIONS AND VASCULAR PATHOLOGY. LOWER THORAX: Unremarkable. HEPATOBILIARY: Nodular, cirrhotic liver. The liver masses were better evaluated on the prior MRI. When of the exophytic lesions in segment III measures 1.1 cm and may have mildly increased in size. A calcification in segment VIII measures 0 .2 cm and is most likely a calcified granuloma. Multiple gallstones layering the gallbladder. No gallbladder distention or wall thickenin g. SPLEEN: 16.2 cm splenomegaly. PANCREAS: No focal masses or ductal dila tation. ADRENALS: No adrenal nodules. KIDNEYS/URETERS: No hydronephrosis or ex ophytic masses. Contrast in the renal collecting system. PERITONEUM/RETROPERITONEUM: No free air or fluid. LYMPH NODES: No lymphadenopathy. The pro minent upper abdominal lymph nodes are nonspecific but likely reactiv e. A difficult to assess without intravenous contrast. VESSELS: Mild aortic calcification. GI TRACT: No distention or wall thickeni ng. The appendix is normal. BONES AND SOFT TISSUES: Moderate degener ative disc changes at L5-S1. IMPRESSION: 1.The previously seen arterially enhanci ng liver lesions were better evaluated on the prior MRI. 2.Cirrhosis with moderate splenomegaly. 3.Cholelithiasis without acute cholecyst itis. Signed: Jose D Rivers MD Report Verified Date/Time:04/15/2019 19:39:35 Reading Location: [facility] B1 C013Y CT Body R [facility] Room Procedure Note Interface, External Ris In - 04/15/2019 7:41 PM PLANT TENDER FINAL REPORT TECHNIQUE: CT of the abdomen WITHOUT int ravenous contrast and WITHOUT oral contrast. Dose modulation, iterativ e reconstruction, and/or weight-based adjustment of the mA/kV was utilized to reduce the radiation dose to as low as reasonably a chievable. INDICATION: Liver mets, presurgical asse ssment. COMPARISON: MRI from 02/11/2019. FINDINGS: ABSENCE OF INTRAVENOUS CONTRAST DECREASE S SENSITIVITY FOR DETECTION OF FOCAL LESIONS AND VASCULAR PATHOLOGY. LOWER THORAX: Unremarkable. HEPATOBILIARY: Nodular, cirrhotic liver. The liver masses were better evaluated on the prior MRI. When of the exophytic lesions in segment III measures 1.1 cm and may have mildly increased in size. A calcification in segment VIII measures 0 .2 cm and is most likely a calcified granuloma. Multiple gallstones layering the gallbladder. No gallbladder distention or wall thickenin g. SPLEEN: 16.2 cm splenomegaly. PANCREAS: No focal masses or ductal dila tation. ADRENALS: No adrenal nodules. KIDNEYS/URETERS: No hydronephrosis or ex ophytic masses. Contrast in the renal collecting system. PERITONEUM/RETROPERITONEUM: No free air or fluid. LYMPH NODES: No lymphadenopathy. The pro minent upper abdominal lymph nodes are nonspecific but likely reactiv e. A difficult to assess without intravenous contrast. VESSELS: Mild aortic calcification. GI TRACT: No distention or wall thickeni ng. The appendix is normal. BONES AND SOFT TISSUES: Moderate degener ative disc changes at L5-S1. IMPRESSION: 1.The previously seen arterially enhanci ng liver lesions were better evaluated on the prior MRI. 2.Cirrhosis with moderate splenomegaly. 3.Cholelithiasis without acute cholecyst itis. Signed: Jose D Rivers MD Report Verified Date/Time: 04/15/2019 9:39:35 Reading Location: [facility] B1 C013Y CT Body R ding Room Performing Organization Address City/State/Zipcode Phone Number GE RIS Insert peripheral IV (04/15/2019 1:11 PM PLANT TENDER) Narrative Performed At [facility], [facility] 04/15/2019 1:17 PM Interventional Radiology Post Proced ure Note PROCEDURE:TACE INDICATION/ PRE-OP DIAGNOSIS:HCC. POST-OP DIAGNOSIS: Same. IMPLANT: Doxorubicin infused 100mg Oncoz shimon RADIOLOGIST: Dr. Radford DISTANCE EDUCATION TEACHER: [facility] EBL: < 5 cc. SPECIMEN: None CONSCIOUS SEDATION: 1 mg Versed, 50 micr ogram Fentanyl intravenously. APPROACH: R PIT STEWARD. PRELIMINARY FINDINGS:Left hepatic lo be tumor blush s/p LHA injection of doxorubicin infused oncozen es. COMPLICATIONS: None. INSTRUCTIONS: Flat bedrest and restricte d RLE movement for 3 hours, d/c home in 6 hours. *Preliminary Findings Only. Final Report to Follow Willis Dickerson M.D. Interventional Radiology Fellow, PGY-6 04/15/2019 1:11 PM NM bone scan whole body (02/11/2019 2:11 PM PLANT TENDER) Specimen Narrative Performed At FINAL REPORT [facility] PROCEDURE: BONE SCAN, WHOLE BODY CPT CODE:41866 INDICATION:Hepatocellular ca rcinoma PROTOCOL:21.4 mCi of Tc-99m MDP was injected intravenously. Whole body and selected spot images were obtained approximately 3 hours later. FINDINGS: Mildly increased tracer activi ty in the calvarium, right greater than left shoulder, cervical and lower thoracic spine, hips, knees, and feet/ankles. IMPRESSION: 1.No pattern of osteoblastic metastatic disease. 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 3.No significant change since prior stud y on 06/02/2018. Images for comparison/correlation were M R abdomen and CT chest on 11/05/2018. Signed: Aniceto Dove MD Report Verified Date/Time:02/11/2019 14:35:45 Reading Location: [address] [employer] Reading Room Procedure Note Interface, External Ris In - 02/11/2019 2:37 PM PLANT TENDER FINAL REPORT PROCEDURE: BONE SCAN, WHOLE BODY CPT CODE: 04007 INDICATION: Hepatocellular carcinom a PROTOCOL: 21.4 mCi of Tc-99m MDP wa s injected intravenously. Whole body and selected spot images were obtained approximately 3 hours later. FINDINGS: Mildly increased tracer activi ty in the calvarium, right greater than left shoulder, cervical and lower thoracic spine, hips, knees, and feet/ankles. IMPRESSION: 1.No pattern of osteoblastic metastatic disease. 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 3.No significant change since prior stud y on 06/02/2018. Images for comparison/correlation were M R abdomen and CT chest on 11/05/2018. Signed: Aniceto Dove MD Report Verified Date/Time: 02/11/2019 1 4:35:45 Reading Location: [address] [employer] Reading Room Performing Organization Address City/State/Zipcode Phone Number GE RIS REPORT OF PROCEDURE - ENDOSCOPY URL (01/06/2019 6:10 PM CDT) Narrative Performed At This result has an attachment that is no t available. Tissue Exam (01/06/2019 2:20 PM CDT) Case Report Surgical Pathology Report Case: [id number] [facility] Authorizing Provider:Joe Harris Collected: 01/06/2019 [facility]0 [facility] MD Amanda Ordering Location: [facility] Endoscopy Received:01/07/2019 0815 Services Pathologist: Sheila Hamilton MD Specimen:Polyp, Eola n - Rectosigmoid, TAKEN BY ESD, ON FOAM, EVALUATE MARGINS DIAGNOSIS A. 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 [facility] - NEGATIVE FOR HIGH-GRADE DYSPLASIA/ MALIGNAN CY - MARGINS, FREE OF ADENOMATOUS EPITHELIUM Signing Pathologist Direct Phone Line: CPT Code(s) 27417 [facility] CLINICAL HISTORY Adenomatous polyp of [facility] sigmoid colon [facility] SPECIMEN SOURCE Polyp, colon-rectosigmoid, [facility] taken by ESD, on foam, MEDICAL [facility] ENTER evaluate margins GROSS DESCRIPTION Received in formalin labeled with the patient's name, accession number and "polyp, colon-rectosigmoid" is a 3.9 x 3.1 x 0.1 cm irregular portion of red-pink mucosa pinned to a piece of styrofoam. The [facility] rface of the mucosa displays an ill-defined, pink-maroon, raised Polyp measuring 2.0 x 1.7 x 0.3 cm. The polyp is 0.2 cm from the radial margin and abuts the deep margin. The specimen is serially [facility] oned and entirely submitted sequentially, one cross section in each cassette, in A1-A22, polyp in A2-A15. Ink code: Blue-radial margin, black-deep margin. CG/ew MICROSCOPIC DESCRIPTION Performed. [facility] Jonnie [facility] Specimen Tissue - Polyp, Colon - Rectosigmoid Performing Organization Address City/State/Zipcode Phone Number [facility] [address] [place] [address] CENTER POC-Glucose meter (01/06/2019 11:35 AM CDT) POC-Glucose Meter 129 (H)Comment: : TESTED 70 - 110 mg/dL [facility] [place] [facility] [address] [facility] [address]: Ultrasound Spec/Keypunch Operators Supervisor ID = [id number] for SHEEBA SCHREIBER Specimen Blood Performing Organization Address City/[facility]/Zipcode Phone Number [facility] [address] [place] [address] CENTER after 09/18/2018 Insurance Payer Benefit Plan / Group Subscriber ID Type Phone A ddress [facility] ONLY xxxxxxxx [employer] - MGD CARE AET[employer] HMO POS QPOS xxxxxxxxx HMO/POS [phone] [id number] (Work) Advance Directives Patient has advance care planning documents, and code status on file. For more information, please contact:[address] [phone] Code Status Date Activated Date Inactivated Comments Full Code 08/11/2019 3:02 PM 08/11/2019 8:37 PM This code status was determined by: Patient Full Code 07/12/2019 5:46 PM 07/12/2019 9:21 PM This code status was determined by: Patient Full Code 04/15/2019 1:19 PM 04/15/2019 9:32 PM This code status was determined by: Patient Full Code 08/30/2018 5:51 PM 08/30/2018 11:54 PM This code status was determined by: Patient Code ONE 05/19/2013 11:33 PM 05/23/2013 12:20 PM All possib le means of support, including: cardi ac massage, mechanical ventilation, and defibrillation will be used to suppo rt life.
--- OUTSIDE RECORDS SUMMARY | 2019-09-19 19:30 | XMS REPORT | Continuity of Care Document ---
:1955 Author Organization [facility] t Address [address] [place] [address] Care Team Providers Name Role Phone Irma Valles Primary Care Physician Ruslan RONDON, Rohan Attending Clinician Unavailable Mando Navarrete MD Attending Clinician Vimal RONDON Attending Clinician Unavailable MANDO NAVARRETE Attending Clinician Unavailable Juan Tavares Attending Clinician Unavailable Helga Gibbs Attending Clinician Unavailable Wu Attending Clinician Unavailable Vitor RONDON Attending Clinician Unavailable Paolo Attending Clinician Unavailable Maureen WALLS Attending Clinician Unavailable rIma Valles Attending Clinician Megan DENG Attending Clinician Donald DENG Attending Clinician Kayla Reyes Attending Clinician Unavailable Kvng Pond MD Attending Clinician DYANA JOSHI Attending Clinician Unavailable Dyana Joshi MD Attending Clinician Henny Tenorio CRNA Attending Clinician Reynold Ellison MD Attending Clinician Lalo Antony MD Attending Clinician CORNELIO LU Attending Clinician Unavailable DARREL MOLINA Attending Clinician Unavailable LETHA MEADOWS Attending Clinician Unavailable MANDO NAVARRETE Admitting Clinician Unavailable DYANA JOHSI Admitting Clinician Unavailable DARREL MOLINA Admitting Clinician Unavailable Payers Payer Name Policy Type Policy Number Effective Date Expiration Date S [facility] - Medical ONLYxxxxxxxx Center AETNA - MGD xxxxxxxxx [facility] CAREAETNA HMO POS - Medic al QPOSxxxxxxxxxHMO/P Center OS Problems Condition Condition Condition Status Onset Resolution Last Treating Co mments Source Name Details Category Date Date Treatment Clinician Date Hepatocell Hepatocell Disease Active [facility] - [facility] - carcinoma carcinoma 00:00: Medi pablito 00 Center Type II Type II Disease Active [facility] diabetes diabetes 07-28 [facility] - mellitus mellitus 00:00: Medica l 00 Center Pre-transp Pre-transp Disease Active Last [facility] lant lant 3-20 [facility] - evaluation evaluation 00:00: t & Plan: Medical for for 00 She is an Center chronic chronic acceptabl liver liver e disease disease candidate for liver transplan t pending further imaging/t esting and official review at [facility]. Liver Liver Disease Active Last [facility] lesion lesion 3-20 [facility] - 00:00: t & Plan: Medical 00 1.6cm and Center 1.0 cm lesion seen on MRI 03/2018 consisten t with features of HCC confirmed upon radiologi pablito conferenc e review. Hepatolog y and oncology with coordinat e care/connie tment. Cancer Cancer Disease Active Last [facility] screening screening 03-17 Assessmen L ukes - 00:00: t & Plan: Medical 00 Cirrhosis Center , regardles s of etiology, is a risk factor for developme nt of hepatocel lular carcinoma with an annual incidence of 1.5-4.5%. We recommend surveilla nce for HCC with abdominal imaging and alphafeto protein every 6 months. MRI and AFP are ordered . Chronic Chronic Disease Active Last [facility] hepatitis hepatitis -03 Assessmen L ukes - C without C without 00:00: t & Plan: M edical hepatic hepatic 00 Continue Center coma coma follow up with hepatolog y for treatment options. Portal Portal Disease Active Last [facility] hypertensi hypertensi 1-03 [facility]men [facility] - on on 00:00: t & Plan: Medical 00 Portal Center hypertens ion with evidence by hypersple nism and ascites. Right Right Disease Active Last [facility] upper upper 1-03 [facility] - quadrant quadrant 00:00: t & Plan: Med ical abdominal abdominal [address] pain pain etiology. History of gallstone but no cholecyst itis. Possible etiology is chronic pancreati tis. We will get HIDA scan to assess for functiona l gallbladd er disorder. Immunity Immunity Disease Active Last [facility] status status 1-03 [facility] - testing testing 00:00: t & Plan: Medic al 00 Serologic Center al tests will be completed to determine the presence of immunity to hepatitis A and B. If the patient does not have adequate immunity, we would recommend administr ation of appropria te vaccinati on as per CDC guideline s by the primary care provider. 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 First diagnosis was in 2011. Other Other Disease Active Last [facility] ascites ascites 1-03 Ass[facility]men [facility] - 00:00: t & Plan: Medical 00 Controlle Center d on spironola ctone 50 mg. Discussed with the patient 2 gram sodium-re stricted diet. Cirrhosis Cirrhosis Disease Active Last [facility] 3-14 [facility]men [facility] - 00:00: t & Plan: Medical 00 Cirrhosis Center secondary to Hep C/ETOH/HC C. Continue follow up with hepatolog y as scheduled . Cholecysti Cholecysti Disease Active [facility] tis tis 3-13 [facility] - 00:00: Medical 00 Center Allergies, Adverse Reactions, Alerts Allergy Allergy Status Severity Reaction(s) Onset Inactive Treating Comm ents Source Name Type Date Date Clinician Sulfa Drug Active Swelling TONGUE [facility] (Sulfona Allergy 3-13 SWELLING [facility] - mide 00:00: Medical Antibiot 00 Center ics) Family History Family Member Diagnosis Comments Start Date Stop Date Source Natural father COPD [facility] Natural father Heart disease [facility] Natural mother Heart disease [facility] Social History Social Habit Start Date Stop Date Quantity Comments [facility] St[facility] Drinks Medica l Center History SDOH [facility] - Alcohol Binge Medical [facility] [facility] Sex Assigned At F [facility] History SDOH 2018-08-30 2018-08-30 1 [facility] - Alcohol Frequency 00:00:00 00:00:00 [facility] Alcohol Comment 2018-08-30 2018-08-30 NONE SINCE [facility] - 00:00:00 00:00:00 MARCH [facility] History of tobacco 2018-05-29 Current smoker I [facility] - use 00:00:00 [facility] Smoking Status Start Date Stop Date Source Former smoker 2019-08-11 00:00:00 2019-08-11 00:00:00 [facility] Medications Ordered Filled Start Stop Current Ordering Indication Dosage Frequency Signature Comments Components Source Medication Medication Date Date Medication? Clinician (SIG) Name Name furosemide 2020- Yes Other 40mg Q.5D Take [address] (LASIX) 40 7-10 07-10 ascites tablet (40 [facility] - MG tablet 00:00: 23:59 mg total) Me dical 00 :00 by mouth 2 Center (two) times daily. spironolact 2020- Yes Other 100mg QD Take [address] one 7-10 07-10 ascites tablets [facility] - (ALDACTONE) 00:00: 23:59 (100 mg Me dical 50 MG 00 :00 total) by Center tablet mouth daily. topiramate 2018-03 Yes TAKE 1 [facility] (TOPAMAX) 2-11 TABLET BY [facility] - 50 MG 00:00: MOUTH Medical tablet 00 TWICE A Center DAY IF TOLERATED insulin Yes 20U Inject 20 [facility] lispro 9-11 Units [facility] - protamin/li 11:03: subcutaneo Medical spro 46 usly daily Center (HUMALOG with MIX 75-25 breakfast SUBQ) . insulin Yes 18U QD Inject 18 [facility] lispro 9-11 Units [facility] - protamin-li 11:03: subcutaneo Medical spro 45 usly Center (HUMALOG nightly. 75-25) 100 unit/mL (75-25) InPn injection colestipol 2018- Yes 5g Take [address] (COLESTID) 6-24 by mouth [facility] - 5 gram 10:20: as needed Medica l granules 10 (FOR Center ITCHING). empaglifloz 2018- Yes 10mg QD Take [address] in 6-24 by mouth [facility] - (JARDIANCE) 10:20: daily. Medi pablito 10 mg 10 Center tablet levothyroxi Yes 137ug Take [address] ne 6-24 mcg by [facility] - (SYNTHROID, 10:20: mouth Medic al LEVOTHROID) 10 Every Center 137 MCG morning on tablet an empty stomach. furosemide 2019- No Peripheral 40mg QD Take [address] (LASIX) 40 - 05-23 edema tablet (40 L ukes - MG tablet 00:00: 23:59 mg total) Me dical 00 :00 by mouth Center daily. spironolact 2019- No Peripheral 100mg QD Take [address] one - 05-21 edema tablets [facility] - (ALDACTONE) 00:00: 23:59 (100 mg Me dical 50 MG 00 :00 total) by Center tablet mouth daily. ursodiol Yes Cancer 300mg QD Take [address] (ACTIGALL) 2-28 screening mg by [facility] - 300 mg 13:20: mouth Medical capsule 05 daily . Aneta carvedilol Yes 3.125mg QD Take 3.[address] (COREG) 1-03 mg by [facility] - 3.125 MG 09:49: mouth Medical tablet 42 daily . Aneta omeprazole Yes Cancer 40mg QD Take [address] (PRILOSEC) 1-03 screening by mouth [facility] - 40 MG 09:49: daily. Medical capsule 42 Aneta escitalopra Yes Cancer 20mg QD Take [address] m oxalate 1-03 screening by mouth L ukes - (LEXAPRO) 09:49: daily. Medica l 20 MG 41 Center tablet traMADol 2018- Yes Cancer 50mg Take [address] (ULTRAM) 50 1-03 screening by mouth [facility] - mg tablet 09:49: as needed Med ical 41 for Pain. Aneta lipase-prot 2017-03 Yes 1{capsu Q.5D Take [address] ease-amylas 2-01 le} capsule by Rosa cadena (ZENPEP) 00:00: mouth 2 Medi pablito 40,000-126, 00 (two) Center 000- times 168,000 daily . unit CpDR gabapentin 2017-03 Yes 600mg Q.5D Take [address] (NEURONTIN) 1-01 mg by Crystal - 600 MG 00:00: mouth 2 Medical tablet 00 (two) Center times daily . Vital Signs Vital Name Observation Time Observation Value Comments Source Systolic blood 2019-08-11 18:15:00 156 mm[Hg] [facility] Diastolic blood 2019-08-11 18:15:00 67 mm[Hg] [facility] Heart rate 2019-08-11 18:15:00 73 /min [facility] Respiratory rate 2019-08-11 18:15:00 16 /min [facility] Oxygen saturation in 2019-08-11 16:52:00 96 /min [facility] Arterial blood by Medical Ce nter Pulse oximetry Body temperature 2019-08-11 08:27:00 37.22 Regine [facility] Body height 2019-08-11 07:01:00 162.6 cm [facility] Body weight Measured 2019-08-11 07:01:00 85.821 kg [facility] BMI 2019-08-11 07:01:00 32.48 kg/m2 [facility] Procedures Procedure Date / Time Performed Performing Clinician Shaista rodríguez NM TUMOR LOCALIZATION 2019-08-11 15:37:00 Peggy Navarrete [facility] NM Y90 MICROSPHERES 2019-08-11 15:36:00 Peggy Navarrete [facility] IR VISCERAL ARTERIOGRAM 2019-08-11 14:40:00 Peggy Navarrete [facility] NM TUMOR LOCALIZATION 2019-08-11 12:40:00 Peggy Navarrete [facility] IR EMBOLIZATION ARTERIAL 2019-08-11 11:26:00 Peggy Navarrete [facility] PROTHROMBIN TIME/INR 2019-08-11 07:36:00 Joellen Cuellar [facility] APTT 2019-08-11 07:36:00 Juliano Cuellarssbenny Pollack [facility] COMPREHENSIVE METABOLIC 2019-08-11 07:36:00 Joellen Cuellar [facility] BILIRUBIN, DIRECT 2019-08-11 07:36:00 AlayonJoellen [facility] CBC W/PLT COUNT & AUTO 2019-08-11 07:36:00 Joellen Cuellar [facility] NM TUMOR LOCALIZATION 2019-07-12 17:46:00 Peggy Navarrete [facility] IR VISCERAL ARTERIOGRAM 2019-07-12 16:00:00 Peggy Navarrete [facility] PROTHROMBIN TIME/INR 2019-07-12 09:35:00 Joellen Cuellar [facility] APTT 2019-07-12 09:35:00 Joellen Cuellar [facility] COMPREHENSIVE METABOLIC 2019-07-12 09:35:00 Joellen Cuellar [facility] BILIRUBIN, DIRECT 2019-07-12 09:35:00 Joellen Cuellar [facility] CBC W/PLT COUNT & AUTO 2019-07-12 09:35:00 Joellen Cuellar [facility] ALPHA FETOPROTEIN (AFP), 2019-05-27 11:23:00 Peggy Navarrete [facility] TUMOR MARKER [facility] BASIC METABOLIC PANEL (7) 2019-05-27 11:23:00 Peggy Navarrete [facility] HEPATIC FUNCTION PANEL 2019-05-27 11:23:00 Peggy Navarrete [facility] PROTHROMBIN TIME/INR 2019-05-27 11:23:00 Peggy Navarrete [facility] CBC W/PLT COUNT & AUTO 2019-05-27 11:23:00 Peggy Navarrete [facility] CT CHEST WITHOUT IV 2019-05-27 11:00:00 Peggy Navarrete [facility] MR ABDOMEN WITH & WITHOUT 2019-05-27 10:23:00 Peggy Navarrete [facility] POCT-CREATININE 2019-05-27 09:55:00 Peggy Navarrete [facility] CT ABDOMEN WITHOUT IV 2019-04-15 13:46:00 JaylaAmaurycori Padilla [facility] IR EMBOLIZATION ARTERIAL 2019-04-15 13:21:00 Peggy Navarrete [facility] INSERT PERIPHERAL IV 2019-04-15 13:11:01 [facility] PROTHROMBIN TIME/INR 2019-04-15 08:45:00 [facility] APTT 2019-04-15 08:45:00 [facility] COMPREHENSIVE METABOLIC 2019-04-15 08:45:00 [facility] CBC W/PLT COUNT & AUTO 2019-04-15 08:45:00 [facility] CT CHEST WITHOUT IV 2019-02-23 11:45:00 Peggy Navarrete [facility] NM BONE SCAN WHOLE BODY 2019-02-11 14:11:00 Peggy Navarrete [facility] MR ABDOMEN WITH & WITHOUT 2019-02-11 11:42:00 Peggy Navarrete [facility] POCT-CREATININE 2019-02-11 10:51:00 Peggy Navarrete [facility] ALPHA FETOPROTEIN (AFP), 2019-02-11 10:25:00 Peggy Navarrete [facility] TUMOR MARKER [facility] BASIC METABOLIC PANEL (7) 2019-02-11 10:25:00 Peggy Navarrete [facility] HEPATIC FUNCTION PANEL 2019-02-11 10:25:00 Peggy Navarrete [facility] PROTHROMBIN TIME/INR 2019-02-11 10:25:00 Peggy Navarrete [facility] CBC W/PLT COUNT & AUTO 2019-02-11 10:25:00 Peggy Navarrete [facility] REPORT OF PROCEDURE - 2019-01-06 18:10:22 Joe Joshi [facility] - ENDOSCOPY URL [facility] TISSUE EXAM 2019-01-06 14:20:00 Dyana [facility] COLONOSCOPY,SUBMUCOSAL 2019-01-06 12:30:00 Jeo Joshi [facility] - RESECTION [facility] COLONOSCOPY,SUBMUCOSAL 2019-01-06 12:30:00 Joe Joshi [facility] - INJECTION [facility] POCT-GLUCOSE METER 2019-01-06 11:35:[facility] CHEST WITHOUT IV 2018-11-05 11:10:00 Peggy Navarrete [facility] CONTRAST [facility] MR ABDOMEN WITH & WITHOUT 2018-11-05 10:28:00 Peggy Navarrete [facility] IV CONTRAST [facility] POCT-CREATININE 2018-11-05 10:03:00 Peggy Navarrete [facility] ALPHA FETOPROTEIN (AFP), 2018-11-05 09:24:00 Peggy Navarrete [facility] TUMOR MARKER [facility] BASIC METABOLIC PANEL (7) 2018-11-05 09:24:00 Peggy Navarrete [facility] HEPATIC FUNCTION PANEL 2018-11-05 09:24:00 Peggy Navarrete [facility] PROTHROMBIN TIME/INR 2018-11-05 09:24:00 Peggy Navarrete [facility] CBC W/PLT COUNT & AUTO 2018-11-05 09:24:[address] [facility] - DIFFERENTIAL Medical Center Plan of Care Planned Activity Planned Date Details Comments Source Future Scheduled 2020-05-[address] [facility] [facility] - Test 00:00:00 malignant [facility] breast (procedure) [code = 375950483] Future Scheduled 2020-04-29 Urine screening for [facility] - Test 00:00:00 protein (procedure) Medical Center [code = 572010269] Future Scheduled 2019-11-08 INFLUENZA VACCINE (#1) [facility] - Test 00:00:00 [code = INFLUENZA Medical Ce nter VACCINE (#1)] Future Scheduled 2018 P[address]OCOCCAL [address] - Test 00:00:00 LOW/MEDIUM RISK (1 of Medica l Center 2 - PCV13) [code = PNEUMOCOCCAL 65+ LOW/MEDIUM RISK (1 of 2 - PCV13)] Future Scheduled 2018-08-[address] [facility] - Test 00:00:00 measurement Medical Center (procedure) [code = 76932450] Future Scheduled [address] [facility] - Test 00:00:00 malignant ne[facility] of [facility] cervix (procedure) [code = 839837993] Future Scheduled 1963-10-19 DIABETIC EYE EXAM [facility] - Test 00:00:00 [code = DIABETIC EYE Medical Center EXAM] Future Scheduled 1963-10-[address] [facility] - Test 00:00:00 examination Medical Center (regime/therapy) [code = 934254097] Future Scheduled [address] [facility] - Test 00:00:00 malignant neoplasm of [facility] colon (procedure) [code = 696717859] Encounters Start End Encounter Admission Attending Care Care Encounter Source Date/Time Date/Time Type Type Clinicians Facility Department ID 2019-05-19 2019-05-19 Office FABIAN Guzman [id number] 08:32:11 10:27:15 Visit Zack Lopez [id number] 2019-04-29 2019-04-29 Office RAIZA Bennett [id number] 09:48:52 10:51:32 Visit Kiara AMBULATOR [id number] Y 0.2.7.2.686 [id number] 2018-12-24 2018-12-24 Office RAIZA Bennett [id number] 07:55:55 09:05:32 Visit Kiara AMBULATOR [id number] Y 0.2.7.2.686 [id number] 2018-11-03 2018-11-03 Office RAIZA Ellison [id number] 11:59:08 12:29:08 Visit Evan AMBULATOR [id number] Reynold Y 0.2.7.2.686 [id number] 2018-11-03 2018-11-03 Office RAIZA Antony [id number] 11:04:33 11:46:04 Visit Jensen AMBULATOR [id number] Lalo Y 0.2.7.2.686 [id number] Results Test Description Test Test Comments Results Result Sour e Time Comments TUMOR LOCALIZATION, 2019-08- Referring: FINAL REPORT PATIENT SPECT 05 Najma Broderick ID: [id number] 16:06:00 Reason for PROCEDURE: Exam:->HCC,CIR TRACER RHOSIS DISTRIBUTION STUDY - SPECT (Bremsstrahlung) CPT CODE: 77450 CLINICAL INDICATION: Hepatocellular carcinoma PROTOCOL: 35.5 mCi of Y-90 microspheres (SIR-Spheres) had been previously administered. SPECT imaging of the liver and upper abdomen using Bremsstrahlung radiation was performed approximately 45 minutes later without additional injection of radiopharmaceutical. FINDINGS: Tracer distribution in the visualized portion of the liver is irregular. No significant activity is noted outside of the liver. IMPRESSION: Appropriate tracer distribution following right hepatic artery injection. Signed: Gerry Hill MDReport Verified Date/Time: 08/12/2019 16:06:26 Reading Location: [address] P[address] Reading Room tumor 2019-08- Interface, External [facility] localization SPECT 05 Ris In - 08/12/2019 [facility] - 16:06:00 4:08 PM CDTFINAL Medical REPORT PATIENT ID: Conor [id number] PROCEDURE: TRACER DISTRIBUTION STUDY - SPECT (Bremsstrahlung) CPT CODE: 70096 CLINICAL INDICATION: Hepatocellular carcinoma PROTOCOL: 35.5 mCi of Y-90 microspheres (SIR-Spheres) had been previously administered. SPECT imaging of the liver and upper abdomen using Bremsstrahlung radiation was performed approximately 45 minutes later without additional injection of radiopharmaceutical. FINDINGS: Tracer distribution in the visualized portion of the liver is irregular. No significant activity is noted outside of the liver. IMPRESSION: Appropriate tracer distribution following right hepatic artery injection. Signed: Gerry Hill Verified Date/Time: 08/12/2019 16:06:26 Reading Location: [address] P327B Nuc Med Reading Room [place], 2019-08- Referring: FINAL REPORT PATIENT INTRA-ARTERIAL 04 [facility] ID: [id number] PARTIC 16:19:00 Reason for PROCEDURE: ADMINISTRATION Exam:->HCC,CIR Y-90 RHOSIS microsphere therapy (SIR-Spheres) CPT CODE: 96186 CLINICAL INDICATION: Hepatocellular carcinoma PROTOCOL: 35.5 mCi of a planned 37 mCi dosage of Y-90 labeled microspheres (SIR-Spheres) was administered by the nuclear medicine physician to the right lobe of the liver via a hepatic artery catheter placed by the interventional radiologist. IMPRESSION: Y-90 microsphere therapy Signed: Gerry Hill Verified Date/Time: 08/11/2019 16:19:17 Reading Location: [address] P327B Nuc Med Reading Room Y90 MICROPSHERES 2019-08- Interface, External [facility] THERAPY 04 Ris In - 08/11/2019 [facility] - 16:19:00 4:21 PM CDTFINAL Medical REPORT PATIENT ID: Conor [id number] PROCEDURE: Y-90 microsphere therapy (SIR-Spheres) CPT CODE: 62516 CLINICAL INDICATION: Hepatocellular carcinoma PROTOCOL: 35.5 mCi of a planned 37 mCi dosage of Y-90 labeled microspheres (SIR-Spheres) was administered by the nuclear medicine physician to the right lobe of the liver via a hepatic artery catheter placed by the interventional radiologist. IMPRESSION: Y-90 microsphere therapy Signed: Gerry Hill MDReport Verified Date/Time: 08/11/2019 16:19:17 Reading Location: [facility] 3rd Flr P327B Nuc Med Reading Room R LOCALIZATION, 2019-08- Referring: FINAL REPORT PATIENT [address] ID: [id number] 16:15:00 Reason for PROCEDURE: TRACER Exam:->HCC,CIR DISTRIBUTION STUDY, RHOSIS WHOLE BODY with SPECT CPT CODE: 43223, 23004 CLINICAL INDICATION: Hepatocellular carcinoma PROTOCOL: 2.7 mCi of Tc-99m MAA was injected by the nuclear medicine physician via an arterial catheter placed by the interventional radiologist in the right hepatic artery. Subsequently, 2.7 mCi of Tc-90 9M MAA was also injected by the nuclear medicine physician via a hepatic catheter placed by the interventional radiologist in the left hepatic artery. Planar spot images of the chest and upper abdomen, as well as tomographic images of the liver and upper abdomen with limited CT correlation were obtained. Hepatopulmonary shunting was calculated by the geometric mean method. FINDINGS: There is very irregular tracer distribution within the liver, with greatest uptake in the left lobe. There is mild tracer uptake in the gallbladder fossa. Otherwise, there is no tracer distribution outside of the liver in the abdomen. Quantitative analysis indicates 5% shunting of tracer to the lungs. IMPRESSION: 1. Tracer uptake in the liver is consistent with focal space occupying disease. 2. No activity is noted in the stomach on this study. The patient is an acceptable candidate for injection of therapeutic microspheres by this criterion. 3. Shunting to the lungs is in an acceptable range for therapy. Signed: Gerry Hill MDRcariort Verified Date/Time: 08/11/2019 16:15:18 Reading Location: [facility] 3rd Flr P327B Nuc Med Reading Room tumor 2019-08- Interface, External [facility] localization 04 Ris In - 08/11/2019 [facility] - multiple 16:15:00 4:17 PM CDTFINAL Medical REPORT PATIENT ID: Aneta [id number] PROCEDURE: TRACER DISTRIBUTION STUDY, WHOLE BODY with SPECT CPT CODE: 26677, 96512 CLINICAL INDICATION: Hepatocellular carcinoma PROTOCOL: 2.7 mCi of Tc-99m MAA was injected by the nuclear medicine physician via an arterial catheter placed by the interventional radiologist in the right hepatic artery. Subsequently, 2.7 mCi of Tc-90 9M MAA was also injected by the nuclear medicine physician via a hepatic catheter placed by the interventional radiologist in the left hepatic artery. Planar spot images of the chest and upper abdomen, as well as tomographic images of the liver and upper abdomen with limited CT correlation were obtained. Hepatopulmonary shunting was calculated by the geometric mean method. FINDINGS: There is very irregular tracer distribution within the liver, with greatest uptake in the left lobe. There is mild tracer uptake in the gallbladder fossa. Otherwise, there is no tracer distribution outside of the liver in the abdomen. Quantitative analysis indicates 5% shunting of tracer to the lungs. IMPRESSION: 1. Tracer uptake in the liver is consistent with focal space occupying disease. 2. No activity is noted in the stomach on this study. The patient is an acceptable candidate for injection of therapeutic microspheres by this criterion. 3. Shunting to the lungs is in an acceptable range for therapy. Signed: Gerry Hill MDReport Verified Date/Time: 08/11/2019 16:15:18 Reading Location: [address] Reading Room NNA WATTS, 2019-08- Referring: FINAL REPORT PATIENT EXTENSIVE - 04 Najma BroderickFor ID: [id number] ARTERIAL 15:38:00 TACEReason for Procedure: Exam:->HCC,CIR Transarterial RHOSIS radio-embolization of the liver. History: A 63-year-old female with hepatitis C, liver cirrhosis, multifocal hepatocellular carcinoma involving segments 5, 8, 4A, 4B and 3 on the recent MRI. Prior chemoembolization on 08/30/2018 and 04/15/2019 with follow-up MRI on 05/27/2019 showed poor response to chemoembolization. The patient underwent mapping for Y on July 12, 2019. Due to catheter migration during technetium injection, there was activity of the lesser curvature of the stomach. The patient returned today for re-mapping and treatment of the right lobe in 1 session. This is a combined dictation for the mapping and treatment. Genetic Physician: Randy Radford M.D. Clinical Program Manager: Alex Ospina Modality: Sonography and fluoroscopy. DOSE [...] remained stable. Physician intra-service sedation time was approximately 60 minutes. Number of images: 10 Anesthesia: Lidocaine local infiltration. Medicines: Ancef 2 g IV. Contrast medium: [...] was laid supine on the procedure table. Bilateral groins were prepped with chlorhexidine gluconate and draped in the maximal sterile fashion. The right common femoral artery was localized using anatomic and ultrasonographic landmarks. The artery is patent. Pertinent ultrasound images were stored for documentation in the PACS. Using aseptic precautions, real-time ultrasonographic guidance, after local anesthesia and dermatotomy, the common femoral artery was accessed with a micropuncture device. Eventually a 035 wire was placed using standard exchanges and advanced to proximal abdominal aorta under fluoroscopic guidance. Over the wire a 5 Bhutanese vascular sheath was placed. The sheath was connected to a heparinized saline drip. Over the wire, a 5 Bhutanese reverse curve catheter was placed. This was followed by selective catheterization of the following arteries: Celiac artery. This was followed by superselective catheterization of the following arteries: Left hepatic artery and right hepatic artery. The equipment used for superselective catheterization was SOS-omni selective 2 catheter, a Bentson wire. The equipment used for superselective catheterization was Progreat catheter, Fathom wire. At each catheterization and superselective catheterization, following test injection, a digital angiography run was performed. The anatomy has been described previously. On the left hepatic artery branch point location, technetium 99 MAA was injected by Dr. Hill of nuclear medicine. The catheter was then advanced into the right hepatic artery branch point. Technetium 99 MAA was injected by Dr. Hill of nuclear medicine at this position also. The activity of technetium 99 MAA injected at each point is described in the nuclear medicine report. At this point, the catheter was withdrawn. The sheath was secured in position with silk suture and an aseptic dressing applied. The patient was taken to nuclear medicine for liver lung scan. The liver lung scan was favorable. The details are described separately in the nuclear medicine report. The patient was then brought back to angiography. A universal timeout was performed prior to starting the procedure. The procedure room personnel used personal protective equipment. The operators used sterile gowns and gloves. The patient was laid supine on the procedure table. Bilateral groins were prepped with chlorhexidine gluconate and draped in the maximal sterile fashion. The existing vascular sheath was flushed with saline. Using a combination of a Bentson wire and a reverse curve catheter, selective catheterization of the celiac artery was carried out and the position confirmed with a hand injected contrast run. This was followed by superselective catheterization of the right hepatic artery branch point with a coaxial Pro great catheter and fathom wire. The position of the microcatheter was confirmed with hand injection run. This was followed by assembly of the administration set and the administration of radio embolization agent in collaboration with the nuclear medicine physician. The details of administration are reported in the nuclear medicine report. The agent used was Y 90 resin microspheres At the end of the procedure the radiation contaminated equipment was discarded using the standard institutional protocol. The access site was closed using Angio-Seal. The patient was then transferred to the post procedure area for recovery. A bremsstrahlung scan was performed. The patient was discharged home in stable condition after at least four hours of observation. Complications: None immediate. Findings: These have been described in the mapping angiogram. Impression: Successful mapping of the left hepatic artery and right hepatic artery. Successful transarterial radio embolization of the right lobe of the liver as described above. The patient was discharged home in stable condition. The patient will return for Y 90 treatment of the left lobe of the liver. The plan is to use glass spheres. We will order 2 separate doses in the same session. One does will be administered through the middle hepatic artery. The other dose will be administered through the left hepatic artery. Thank you for the opportunity to assist in the care of your patient. Signed: Randy Radford MDReport Verified Date/Time: 08/11/2019 15:38:16 Reading Location: [place] [address] Angio Body Reading Room , VISCERAL W 2019-08- Referring: FINAL REPORT PATIENT Denise Yao ID: [id number] 15:38:00 MeahReason for Procedure: Exam:->HCC,CIR Transarterial RHOSIS radio-embolization of the liver. History: A 63-year-old female with hepatitis C, liver cirrhosis, multifocal hepatocellular carcinoma involving segments 5, 8, 4A, 4B and 3 on the recent MRI. Prior chemoembolization on 08/30/2018 and 04/15/2019 with follow-up MRI on 05/27/2019 showed poor response to chemoembolization. The patient underwent mapping for Y 90 on July 12, 2019. Due to catheter migration during technetium injection, there was activity of the lesser curvature of the stomach. The patient returned today for re-mapping and treatment of the right lobe in 1 session. This is a combined dictation for the mapping and treatment. Genetic Physician: Randy Radford M.D. Clinical Program Manager: Alex Ospina Modality: Sonography and fluoroscopy. DOSE [...] remained stable. Physician intra-service sedation time was approximately 60 minutes. Number of images: 10 Anesthesia: Lidocaine local infiltration. Medicines: Ancef 2 g IV. Contrast medium: [...] was laid supine on the procedure table. Bilateral groins were prepped with chlorhexidine gluconate and draped in the maximal sterile fashion. The right common femoral artery was localized using anatomic and ultrasonographic landmarks. The artery is patent. Pertinent ultrasound images were stored for documentation in the PACS. Using aseptic precautions, real-time ultrasonographic guidance, after local anesthesia and dermatotomy, the common femoral artery was accessed with a micropuncture device. Eventually a 035 wire was placed using standard exchanges and advanced to proximal abdominal aorta under fluoroscopic guidance. Over the wire a 5 Bhutanese vascular sheath was placed. The sheath was connected to a heparinized saline drip. Over the wire, a 5 Bhutanese reverse curve catheter was placed. This was followed by selective catheterization of the following arteries: Celiac artery. This was followed by superselective catheterization of the following arteries: Left hepatic artery and right hepatic artery. The equipment used for superselective catheterization was SOS-omni selective 2 catheter, a Bentson wire. The equipment used for superselective catheterization was Progreat catheter, Fathom wire. At each catheterization and superselective catheterization, following test injection, a digital angiography run was performed. The anatomy has been described previously. On the left hepatic artery branch point location, technetium 99 MAA was injected by Dr. Hill of nuclear medicine. The catheter was then advanced into the right hepatic artery branch point. Technetium 99 MAA was injected by Dr. Hill of nuclear medicine at this position also. The activity of technetium 99 MAA injected at each point is described in the nuclear medicine report. At this point, the catheter was withdrawn. The sheath was secured in position with silk suture and an aseptic dressing applied. The patient was taken to nuclear medicine for liver lung scan. The liver lung scan was favorable. The details are described separately in the nuclear medicine report. The patient was then brought back to angiography. A universal timeout was performed prior to starting the procedure. The procedure room personnel used personal protective equipment. The operators used sterile gowns and gloves. The patient was laid supine on the procedure table. Bilateral groins were prepped with chlorhexidine gluconate and draped in the maximal sterile fashion. The existing vascular sheath was flushed with saline. Using a combination of a Bentson wire and a reverse curve catheter, selective catheterization of the celiac artery was carried out and the position confirmed with a hand injected contrast run. This was followed by superselective catheterization of the right hepatic artery branch point with a coaxial Pro great catheter and fathom wire. The position of the microcatheter was confirmed with hand injection run. This was followed by assembly of the administration set and the administration of radio embolization agent in collaboration with the nuclear medicine physician. The details of administration are reported in the nuclear medicine report. The agent used was Y 90 resin microspheres At the end of the procedure the radiation contaminated equipment was discarded using the standard institutional protocol. The access site was closed using Angio-Seal. The patient was then transferred to the post procedure area for recovery. A bremsstrahlung scan was performed. The patient was discharged home in stable condition after at least four hours of observation. Complications: None immediate. Findings: These have been described in the mapping angiogram. Impression: Successful mapping of the left hepatic artery and right hepatic artery. Successful transarterial radio embolization of the right lobe of the liver as described above. The patient was discharged home in stable condition. The patient will return for Y 90 treatment of the left lobe of the liver. The plan is to use glass spheres. We will order 2 separate doses in the same session. One does will be administered through the middle hepatic artery. The other dose will be administered through the left hepatic artery. Thank you for the opportunity to assist in the care of your patient. Signed: Randy Radford MDReport Verified Date/Time: 08/11/2019 15:38:16 Reading Location: [place] [address] Angio Body Reading Room Visceral 2019-08- Interface, External [facility]iogram 04 Ris In - 08/11/2019 [facility] - 15:38:00 3:40 PM CDTFINAL Medical REPORT PATIENT ID: [facility] [id number] Procedure: Transarterial radio-embolization of the liver. History: A 63-year-old female with hepatitis C, liver cirrhosis, multifocal hepatocellular carcinoma involving segments 5, 8, 4A, 4B and 3 on the recent MRI. Prior chemoembolization on 08/30/2018 and 04/15/2019 with follow-up MRI on 05/27/2019 showed poor response to chemoembolization. The patient underwent mapping for Y 90 on July 12, 2019. Due to catheter migration during technetium injection, there was activity of the lesser curvature of the stomach. The patient returned today for re-mapping and treatment of the right lobe in 1 session. This is a combined dictation for the mapping and treatment. Genetic Physician: Randy Radford M.D. Clinical Program Manager: Alex Ospina Modality: Sonography and fluoroscopy. DOSE [...] remained stable. Physician intra-service sedation time was approximately 60 minutes. Number of images: 10 Anesthesia: Lidocaine local infiltration. Medicines: Ancef 2 g IV. Contrast medium: [...] was laid supine on the procedure table. Bilateral groins were prepped with chlorhexidine gluconate and draped in the maximal sterile fashion. The right common femoral artery was localized using anatomic and ultrasonographic landmarks. The artery is patent. Pertinent ultrasound images were stored for documentation in the PACS. Using aseptic precautions, real-time ultrasonographic guidance, after local anesthesia and dermatotomy, the common femoral artery was accessed with a micropuncture device. Eventually a 035 wire was placed using standard exchanges and advanced to proximal abdominal aorta under fluoroscopic guidance. Over the wire a 5 Bhutanese vascular sheath was placed. The sheath was connected to a heparinized saline drip. Over the wire, a 5 Bhutanese reverse curve catheter was placed. This was followed by selective catheterization of the following arteries: Celiac artery. This was followed by superselective catheterization of the following arteries: Left hepatic artery and right hepatic artery. The equipment used for superselective catheterization was SOS-omni selective 2 catheter, a Bentson wire. The equipment used for superselective catheterization was Progreat catheter, Fathom wire. At each catheterization and superselective catheterization, following test injection, a digital angiography run was performed. The anatomy has been described previously. On the left hepatic artery branch point location, technetium 99 MAA was injected by Dr. Hill of nuclear medicine. The catheter was then advanced into the right hepatic artery branch point. Technetium 99 MAA was injected by Dr. Hill of nuclear medicine at this position also. The activity of technetium 99 MAA injected at each point is described in the nuclear medicine report. At this point, the catheter was withdrawn. The sheath was secured in position with silk suture and an aseptic dressing applied. The patient was taken to nuclear medicine for liver lung scan. The liver lung scan was favorable. The details are described separately in the nuclear medicine report. The patient was then brought back to angiography. A universal timeout was performed prior to starting the procedure. The procedure room personnel used personal protective equipment. The operators used sterile gowns and gloves. The patient was laid supine on the procedure table. Bilateral groins were prepped with chlorhexidine gluconate and draped in the maximal sterile fashion. The existing vascular sheath was flushed with saline. Using a combination of a Bentson wire and a reverse curve catheter, selective catheterization of the celiac artery was carried out and the position confirmed with a hand injected contrast run. This was followed by superselective catheterization of the right hepatic artery branch point with a coaxial Pro great catheter and fathom wire. The position of the microcatheter was confirmed with hand injection run. This was followed by assembly of the administration set and the administration of radio embolization agent in collaboration with the nuclear medicine physician. The details of administration are reported in the nuclear medicine report. The agent used was Y 90 resin microspheres At the end of the procedure the radiation contaminated equipment was discarded using the standard institutional protocol. The access site was closed using Angio-Seal. The patient was then transferred to the post procedure area for recovery. A bremsstrahlung scan was performed. The patient was discharged home in stable condition after at least four hours of observation. Complications: None immediate. Findings: These have been described in the mapping angiogram. Impression: Successful mapping of the left hepatic artery and right hepatic artery. Successful transarterial radio embolization of the right lobe of the liver as described above. The patient was discharged home in stable condition. The patient will return for Y 90 treatment of the left lobe of the liver. The plan is to use glass spheres. We will order 2 separate doses in the same session. One does will be administered through the middle hepatic artery. The other dose will be administered through the left hepatic artery. Thank you for the opportunity to assist in the care of your patient. Signed: Randy Radford MDReport Verified Date/Time: 08/11/2019 15:38:16 Reading Location: [facility] [address] Angio Body Reading Room Embolization 2019-08- Interface, External [facility] 04 Ris In - 08/11/2019 [facility] - 15:38:00 3:40 PM CDTFINAL Medical REPORT PATIENT ID: Conor [id number] Procedure: Transarterial radio-embolization of the liver. History: A 63-year-old female with hepatitis C, liver cirrhosis, multifocal hepatocellular carcinoma involving segments 5, 8, 4A, 4B and 3 on the recent MRI. Prior chemoembolization on 08/30/2018 and 04/15/2019 with follow-up MRI on 05/27/2019 showed poor response to chemoembolization. The patient underwent mapping for Y 90 on July 12, 2019. Due to catheter migration during technetium injection, there was activity of the lesser curvature of the stomach. The patient returned today for re-mapping and treatment of the right lobe in 1 session. This is a combined dictation for the mapping and treatment. Genetic Physician: Randy Radford M.D. Clinical Program Manager: Alex Ospina Modality: Sonography and fluoroscopy. DOSE [...] remained stable. Physician intra-service sedation time was approximately 60 minutes. Number of images: 10 Anesthesia: Lidocaine local infiltration. Medicines: Ancef 2 g IV. Contrast medium: [...] was laid supine on the procedure table. Bilateral groins were prepped with chlorhexidine gluconate and draped in the maximal sterile fashion. The right common femoral artery was localized using anatomic and ultrasonographic landmarks. The artery is patent. Pertinent ultrasound images were stored for documentation in the PACS. Using aseptic precautions, real-time ultrasonographic guidance, after local anesthesia and dermatotomy, the common femoral artery was accessed with a micropuncture device. Eventually a 035 wire was placed using standard exchanges and advanced to proximal abdominal aorta under fluoroscopic guidance. Over the wire a 5 Bhutanese vascular sheath was placed. The sheath was connected to a heparinized saline drip. Over the wire, a 5 Bhutanese reverse curve catheter was placed. This was followed by selective catheterization of the following arteries: Celiac artery. This was followed by superselective catheterization of the following arteries: Left hepatic artery and right hepatic artery. The equipment used for superselective catheterization was SOS-omni selective 2 catheter, a Bentson wire. The equipment used for superselective catheterization was Progreat catheter, Fathom wire. At each catheterization and superselective catheterization, following test injection, a digital angiography run was performed. The anatomy has been described previously. On the left hepatic artery branch point location, technetium 99 MAA was injected by Dr. Hill of nuclear medicine. The catheter was then advanced into the right hepatic artery branch point. Technetium 99 MAA was injected by Dr. Hill of nuclear medicine at this position also. The activity of technetium 99 MAA injected at each point is described in the nuclear medicine report. At this point, the catheter was withdrawn. The sheath was secured in position with silk suture and an aseptic dressing applied. The patient was taken to nuclear medicine for liver lung scan. The liver lung scan was favorable. The details are described separately in the nuclear medicine report. The patient was then brought back to angiography. A universal timeout was performed prior to starting the procedure. The procedure room personnel used personal protective equipment. The operators used sterile gowns and gloves. The patient was laid supine on the procedure table. Bilateral groins were prepped with chlorhexidine gluconate and draped in the maximal sterile fashion. The existing vascular sheath was flushed with saline. Using a combination of a Bentson wire and a reverse curve catheter, selective catheterization of the celiac artery was carried out and the position confirmed with a hand injected contrast run. This was followed by superselective catheterization of the right hepatic artery branch point with a coaxial Pro great catheter and fathom wire. The position of the microcatheter was confirmed with hand injection run. This was followed by assembly of the administration set and the administration of radio embolization agent in collaboration with the nuclear medicine physician. The details of administration are reported in the nuclear medicine report. The agent used was Y 90 resin microspheres At the end of the procedure the radiation contaminated equipment was discarded using the standard institutional protocol. The access site was closed using Angio-Seal. The patient was then transferred to the post procedure area for recovery. A bremsstrahlung scan was performed. The patient was discharged home in stable condition after at least four hours of observation. Complications: None immediate. Findings: These have been described in the mapping angiogram. Impression: Successful mapping of the left hepatic artery and right hepatic artery. Successful transarterial radio embolization of the right lobe of the liver as described above. The patient was discharged home in stable condition. The patient will return for Y 90 treatment of the left lobe of the liver. The plan is to use glass spheres. We will order 2 separate doses in the same session. One does will be administered through the middle hepatic artery. The other dose will be administered through the left hepatic artery. Thank you for the opportunity to assist in the care of your patient. Signed: Randy Radford Verified Date/Time: 08/11/2019 15:38:16 Reading Location: [place] [address] Angio Body Reading Room Prothrombin time/INR 2019-08-11 08:18:00 Test Item Value Reference Range Interpretation Comme nts Protime (test code = 5902-2) 14.9 11.9- 14.2 seconds H INR (test code = 6301-6) 1.2 <=5.9 JEFF (test code = JEFF) Effective 08/04/2018: PT Reference Range ChangeNew: 11.9-14.2 Previous: 11.7-14.7 RECOMMENDED COUMADIN/WARFARIN INR THERAPY RANGESSTANDARD DOSE: 2.0-3.0 Includes: PROPHYLAXIS for venous thrombosis, systemic embolization; TREATMENT for venous thrombosis and/or pulmonary embolus.HIGH RISK: Target INR is 2.5-3.5 for patients wiht mechanical heart valves. Lab Interpretation (test code = Abnormal 70740-9) [facility] Test Item Value Reference Range Interpretation Comments PTT (test code = 81338-6) 33.0 22.5- 36.0 seconds Lab Interpretation (test code = Normal 15569-7) [id number] 08:18:00 Test Item Value Reference Range Interpretation Comments PROTIME (BEAKER) (test code = 14.9 seconds 11.9-14.2 H 759) INR (BEAKER) (test code = 370) 1.2 <=5.9 Effective 08/04/2018: PT Reference Range ChangeNew: 11.9-14.2 Previous: 11.7- 14.7RECOMMENDED COUMADIN/WARFARIN INR THERAPY RANGESSTANDARD DOSE: 2.0-3.0 Includes: PROPHYLAXIS for venous thrombosis, systemic embolization; TREATMENT for venous thrombosis and/or pulmonary embolus.HIGH RISK: Target INR is2.5-3.5 for patients wiht mechanical heart valves.[id number] 08:18:00 Test Item Value Reference Range Interpretation Comments PARTIAL THROMBOPLASTIN TIME 33.0 seconds 22.5-36.0 (BEAKER) (test code = 760) CBC with platelet count + automated [id number] 08:06:00 Test Item Value Reference Range Interpretation Comments WBC (test code = 6690-2) 3.9 3.5- 10.5 K/L RBC (test code = 789-8) 3.67 3.93- 5.22 M/L L MCHC (test code = 786-4) 30.5 32.2- 35.5 GM/DL L Hematocrit (test code = 4544-3) 29.2 % 34.1-44.9 L MCV (test code = 787-2) 79.6 fL 79.4-94.8 MCH (test code = 785-6) 24.3 pg 25.6-32.2 L RDW (test code = 788-0) 14.3 % 11.7-14.4 Platelets (test code = 777-3) 81 150- 450 K/CU MM L MPV (test code = 68871-1) 9.8 fL 9.4-12.3 nRBC (test code = 413) 0 0- 0 /100 WBC % Neutros (test code = 429) 80 % % Lymphs (test code = 430) 9 % % Monos (test code = 431) 9 % % Eos (test code = 432) 1 % % Baso (test code = 437) 0 % # Neutros (test code = 670) 3.09 1.56- 6.13 K/L # Lymphs (test code = 414) 0.35 1.18- 3.74 K/L L # Monos (test code = 415) 0.36 0.24- 0.36 K/L # Eos (test code = 416) 0.05 0.04- 0.36 K/L # Baso (test code = 417) 0.01 0.01- 0.08 K/L Immature Granulocytes-Relative 0 % 0-1 (test code = 2801) Lab Interpretation (test code = Abnormal 17771-6) [facility] W/PLT COUNT & AUTO [id number] 08:06:00 Test Item Value Reference Range Interpretation Comments WHITE BLOOD CELL COUNT (BEAKER) 3.9 K/ L 3.5-10.5 (test code = 775) RED BLOOD CELL COUNT (BEAKER) 3.67 M/ L 3.93-5.22 L (test code = 761) HEMOGLOBIN (BEAKER) (test code = 8.9 GM/DL 11.2-15.7 L 410) HEMATOCRIT (BEAKER) (test code = 29.2 % 34.1-44.9 L 411) MEAN CORPUSCULAR VOLUME (BEAKER) 79.6 fL 79.4-94.8 (test code = 753) MEAN CORPUSCULAR HEMOGLOBIN 24.3 pg 25.6-32.2 L (BEAKER) (test code = 751) MEAN CORPUSCULAR HEMOGLOBIN CONC 30.5 GM/DL 32.2-35.5 L (BEAKER) (test code = 752) RED CELL DISTRIBUTION WIDTH 14.3 % 11.7-14.4 (BEAKER) (test code = 412) PLATELET COUNT (BEAKER) (test code 81 K/CU MM 150-450 L = 756) MEAN PLATELET VOLUME (BEAKER) 9.8 fL 9.4-12.3 (test code = 754) NUCLEATED RED BLOOD CELLS (BEAKER) 0 /100 WBC 0-0 (test code = 413) NEUTROPHILS RELATIVE PERCENT 80 % (BEAKER) (test code = 429) LYMPHOCYTES RELATIVE PERCENT 9 % (BEAKER) (test code = 430) MONOCYTES RELATIVE PERCENT 9 % (BEAKER) (test code = 431) EOSINOPHILS RELATIVE PERCENT 1 % (BEAKER) (test code = 432) BASOPHILS RELATIVE PERCENT 0 % (BEAKER) (test code = 437) NEUTROPHILS ABSOLUTE COUNT 3.09 K/ L 1.56-6.13 (BEAKER) (test code = 670) LYMPHOCYTES ABSOLUTE COUNT 0.35 K/ L 1.18-3.74 L (BEAKER) (test code = 414) MONOCYTES ABSOLUTE COUNT (BEAKER) 0.36 K/ L 0.24-0.36 (test code = 415) EOSINOPHILS ABSOLUTE COUNT 0.05 K/ L 0.04-0.36 (BEAKER) (test code = 416) BASOPHILS ABSOLUTE COUNT (BEAKER) 0.01 K/ L 0.01-0.08 (test code = 417) IMMATURE GRANULOCYTES-RELATIVE 0 % 0-1 PERCENT (BEAKER) (test code = 2801) Comprehensive metabolic [id number] 08:05:00 Test Item Value Reference Range Interpretation Comments Protein, Total (test 6.5 6.0- 8.3 gm/dL code = 2885-2) Albumin (test code = 3.4 g/dL 3.5-5 L 08415-4) Alkaline Phosphatase 150 U/L 40-150 (test code = 6768-6) Total Bilirubin (test 0.5 mg/dL 0.2-1.2 code = 1974-2) Sodium (test code = 136 meq/L 975-300 3046-2) Potassium (test code = 3.9 meq/L 3.5-5.1 2823-3) Chloride (test code = 100 meq/L 98-107 2074-0) CO2 (test code = 29 meq/L 22-29 2027-9) BUN (test code = 17 mg/dL 7-21 3094-0) Creatinine (test code 0.86 mg/dL 0.57-1.25 = 2160-0) Glucose (test code = 113 mg/dL 70-105 H 2345-7) Calcium (test code = 8.5 mg/dL 8.4-10.2 13458-6) AST (test code = 20 U/L 5-34 1920-8) ALT (test code = 15 U/L 6-55 1742-6) EGFR (test code = 66 mL/min/1.73 [place] [address]-7) NOT ACCURATE CREATININE CLEARANCE IN PREDICTING GLOMERULAR FILTRATION RATE . ESTIMATED GFR I S NOT APPLICABLE FOR DIALYSIS PATIENTS. JEFF (test code = JEFF) Claims Adjudicator ID - AAHAMID Lab Interpretation Abnormal (test code = 82146-8) [facility] [id number]:05:00 Test Item Value Reference Range Interpretation Comments Bilirubin, Direct (test 0.3 mg/dL 0.1-0.5 code = 1968-) JEFF (test code = JEFF) Claims Adjudicator ID - AAHAMID Lab Interpretation (test Normal code = 06819-2) [facility] [id number] 08:05:00 Test Item Value Reference Range Interpretation Comments TOTAL PROTEIN 6.5 gm/dL 6.0-8.3 (BEAKER) (test code = 770) ALBUMIN (BEAKER) 3.4 g/dL 3.5-5.0 L (test code = 1145) ALKALINE PHOSPHATASE 150 U/L 40-150 (BEAKER) (test code = 346) BILIRUBIN TOTAL 0.5 mg/dL 0.2-1.2 (BEAKER) (test code = 377) SODIUM (BEAKER) (test 136 meq/L 136-145 code = 381) POTASSIUM (BEAKER) 3.9 meq/L 3.5-5.1 (test code = 379) CHLORIDE (BEAKER) 100 meq/L 98-107 (test code = 382) CO2 (BEAKER) (test 29 meq/L 22-29 code = 355) BLOOD UREA NITROGEN 17 mg/dL 7-21 (BEAKER) (test code = 354) CREATININE (BEAKER) 0.86 mg/dL 0.57-1.25 (test code = 358) GLUCOSE RANDOM 113 mg/dL 70-105 H (BEAKER) (test code = 652) CALCIUM (BEAKER) 8.5 mg/dL 8.4-10.2 (test code = 697) AST (SGOT) (BEAKER) 20 U/L 5-34 (test code = 353) ALT (SGPT) (BEAKER) 15 U/L 6-55 (test code = 347) EGFR (BEAKER) (test 66 mL/min/1.73 ESTIMA LUCIAN GFR IS code = 1092) sq m NOT ACCURATE CREATININE CLEARANCE IN PREDICTING GLOMERULAR FILTRATION RATE . ESTIMATED GFR I S NOT APPLICABLE FOR DIALYSIS PATIEN TS. Claims Adjudicator ID - AAHAMIDBILIRUBIN, [id number] 08:05:00 Test Item Value Reference Range Interpretation Comments BILIRUBIN DIRECT (BEAKER) (test 0.3 mg/dL 0.1-0.5 code = 706) Claims Adjudicator ID - AAHAMIDANG, VISCERAL [id number] 09:26:00Referring: Dr. Najma Parrish for Exam:->HCC,HCV,CIRRHOSISFINAL REPORT Procedure: Mapping of the liver circulation prior to Y-90 radio-embolization. History: Patient with hepatitis C, liver cirrhosis, multifocal hepatocellular carcinoma involving segments 8 and 5, 4a, 4b and 3 on the recent MRI. History of previous chemoembolization on 08/30/2018 and 04/15/2019 with a follow-up MRI on 05/27/2019 showing poor response to chemoembolization. Y 90 therapy is being considered. Genetic Physician: Randy Radford M.D. Clinical Program Manager: Alex Boss Modality: Sonography and fluoroscopy DOSE REDUCTION: The examination was performed according to departmental dose- optimization program. Fluoro time: 9.5 minutes Radiation dose: 174.2 mGy Kerma-area. Sedation: Versed 1 mg and Fentanyl 50 mcg was given intravenously for conscioussedation. Vital signs were monitored throughout the procedure by a dedicated RN under direct supervision of Dr. Radford, and remained stable. Physician intra-service sedation time was 44 minutes. Anesthesia: Lidocaine local infiltration Medicines: Not applicable Contrast medium: [id number], 115 cc. Estimated blood loss: < 5 cc. Technique: A discussion of the risks, benefits, and alternatives was carried out with the patient. A written informed consent was obtained. The pa tient expressed understanding and agreed to proceed. A universal timeout was performed prior to starting the procedure. The procedure room personnel used personal protective equipment. The operators used sterile gowns and gloves. The patient was laid supine on the procedure table. The surgical sitewas prepped with chlorhexidine gluconate and draped in the maximal sterile fashion. The right commonfemoral artery was localized using anatomic and ultrasonographic landmarks. The artery is patent. Pertinent ultrasound images were stored for documentation in the PACS. Using aseptic precautions, real-time ultrasonographic guidance, after local anesthesia and dermatotomy, the common femoral artery was accessed with a micropuncture device. Eventually a 035 wire was placed using standard exchanges and advanced to proximal abdominal aorta under fluoroscopic guidance. Over the wire a 5 Bhutanese vascular sheath was placed. The sheath was connected to a heparinized saline drip. Over the wire, a 5 Bhutanese reverse curve catheter was placed. This was followed by selective catheterization of the following arteries: Celiac artery. This was followed by superselective catheterization of the following arteries: Common hepatic artery, proper hepatic artery. The equipment used for superselective catheterization was Progreat catheter, Fathom wire. At each catheterization and superselective catheterization, following test injection, a digital subtraction angiography run was performed. From the proper hepatic artery location, a Kate CT was performed. The catheter tip position in the proper hepatic artery branch point was used to inject approximately 5 mCi of technetium MAA by Dr. Hill. At the end of the procedure the geographic equipment was withdrawn. The access site was closed using Angio-Seal. The patient was then transferred to the nuclear medicine for imaging. The patient was discharged home in stable condition after at least four hours of observation Complications: None immediate. Findings:Conventional branching pattern of the celiac artery. No accessory or replaced right hepaticartery from the superior mesenteric artery. Patent portal vein with hepatopedal flow. Classic branching pattern of the common hepatic artery. There is a right gastric artery just at the branch point ofthe common hepatic artery. The proper hepatic artery gives rise to a left hepatic artery, middle hepatic artery, and a right hepatic artery.A CT shows enhancement of multiple tumors in the liver and right and left lobes. Impression: Mapping prior to transarterial embolization of the liver as described above. Final plan pending the outcome of the nuclear medicine imaging. Should the patient become eligible for Y-90 therapy, it will be delivered from the right hepatic artery in 1 session and S2 stenosis 1 from the mid hepatic artery and one for the left hepatic artery for the treatment of the left lobe. The plan of treatment would be sequential lobar. Please note that after injection of [id number] MAA the microcatheter was noted to have moved proximally. A contrast injection at this time revealed enhancement of the right gastric artery. The treatment site would be the branch point of the right hepatic artery and superselective catheterization of the left and middle hepatic arteries far removed from the right gastric artery origin. There is enhancement of the lesser curvature of the stomach, 1 day mapping and treatment would be performed for the right and left lobes of the liver. This whole plan was discussed with Dr. Hill. The patient was discharged home in stable condition. Thank you for the opportunity to assist in the care of your patient. Signed: Randy Radfordeport Verified Date/Time: 07/25/2019 09:26:06 Reading Location: [facility] P048 Angio Body Reading Room Electronicallysigned by: RANDY RADFORD MD on 07/25/2019 09:26 AM TUMOR LOCALIZATION, [id number] 15:28:00Referring: Dr. Najma Broderick Reason for Exam:->HCC,HCV,CIRRHOSISFINAL REPORT PROCEDURE: TRACER DISTRIBUTION STUDY, WHOLE BODY with SPECT CPT CODE: 54525, 35529 CLINICAL INDICATION: Hepatocellular carcinoma PROTOCOL: A total of 4.9 mCi of Tc-99m MAA was injected by the nuclear medicine physician via a hepatic arterial catheter placed by the interventional radiologist. Planar whole body and spot images of the chest and upper abdomen, as well as tomographic images of the liver and upper abdomen with limited CT correlation were obtained. Hepatopulmonary shunting was calculated by the geometric mean method. FINDINGS: There is multifocal tracer distribution within the liver. There is high tracer distribution in the stomach. There is mild tracer accumulation in the salivary glands, thyroid, and the kidneys/urinary system, consistent with expected free pertechnetate activity. Quantitative analysis indicates approximately 10% shunting of tracer to the lungs. IMPRESSION: 1. Tracer uptake in the liver is consistent with multifocal space occupying disease. 2. There is extrahepatic activity in the stomach which makes the patient an unacceptable candidate for injection of therapeutic microspheres from this catheter positioning. The patient can be reconsidered for therapy after reassessment of catheter position. 3. Shunting to the lungs is in an acceptable range for therapy. Signed: Gerry Hill MDReport Verified Date/Time: 07/15/2019 15:28:14 Reading Location: [address] Reading Room COMPREHENSIVE METABOLIC [id number] 10:25:00 Test Item Value Reference Range Interpretation Comments TOTAL PROTEIN 6.7 gm/dL 6.0-8.3 (BEAKER) (test code = 770) ALBUMIN (BEAKER) 3.5 g/dL 3.5-5.0 (test code = 1145) ALKALINE PHOSPHATASE 142 U/L 40-150 (BEAKER) (test code = 346) BILIRUBIN TOTAL 0.7 mg/dL 0.2-1.2 (BEAKER) (test code = 377) SODIUM (BEAKER) (test 136 meq/L 136-145 code = 381) POTASSIUM (BEAKER) 4.3 meq/L 3.5-5.1 (test code = 379) CHLORIDE (BEAKER) 103 meq/L 98-107 (test code = 382) CO2 (BEAKER) (test 27 meq/L 22-29 code = 355) BLOOD UREA NITROGEN 16 mg/dL 7-21 (BEAKER) (test code = 354) CREATININE (BEAKER) 0.89 mg/dL 0.57-1.25 (test code = 358) GLUCOSE RANDOM 138 mg/dL 70-105 H (BEAKER) (test code = 652) CALCIUM (BEAKER) 8.3 mg/dL 8.4-10.2 L (test code = 697) AST (SGOT) (BEAKER) 20 U/L 5-34 (test code = 353) ALT (SGPT) (BEAKER) 17 U/L 6-55 (test code = 347) EGFR (BEAKER) (test 64 mL/min/1.73 ESTIMA LUCIAN GFR IS code = 1092) sq m NOT ACCURATE CREATININE CLEARANCE IN PREDICTING GLOMERULAR FILTRATION RATE . ESTIMATED GFR I S NOT APPLICABLE FOR DIALYSIS PATIEN TS. Claims Adjudicator ID - NTPBILIRUBIN, [id number] 10:25:00 Test Item Value Reference Range Interpretation Comments BILIRUBIN DIRECT (BEAKER) (test 0.3 mg/dL 0.1-0.5 code = 706) Claims Adjudicator ID - NTPCBC W/PLT COUNT & AUTO [id number] 10:12:00 Test Item Value Reference Range Interpretation Comments WHITE BLOOD CELL COUNT (BEAKER) 4.0 K/ L 3.5-10.5 (test code = 775) RED BLOOD CELL COUNT (BEAKER) 3.57 M/ L 3.93-5.22 L (test code = 761) HEMOGLOBIN (BEAKER) (test code = 9.1 GM/DL 11.2-15.7 L 410) HEMATOCRIT (BEAKER) (test code = 28.9 % 34.1-44.9 L 411) MEAN CORPUSCULAR VOLUME (BEAKER) 81.0 fL 79.4-94.8 (test code = 753) MEAN CORPUSCULAR HEMOGLOBIN 25.5 pg 25.6-32.2 L (BEAKER) (test code = 751) MEAN CORPUSCULAR HEMOGLOBIN CONC 31.5 GM/DL 32.2-35.5 L (BEAKER) (test code = 752) RED CELL DISTRIBUTION WIDTH 13.8 % 11.7-14.4 (BEAKER) (test code = 412) PLATELET COUNT (BEAKER) (test code 86 K/CU MM 150-450 L = 756) MEAN PLATELET VOLUME (BEAKER) 10.0 fL 9.4-12.3 (test code = 754) NUCLEATED RED BLOOD CELLS (BEAKER) 0 /100 WBC 0-0 (test code = 413) NEUTROPHILS RELATIVE PERCENT 81 % (BEAKER) (test code = 429) LYMPHOCYTES RELATIVE PERCENT 10 % (BEAKER) (test code = 430) MONOCYTES RELATIVE PERCENT 7 % (BEAKER) (test code = 431) EOSINOPHILS RELATIVE PERCENT 1 % (BEAKER) (test code = 432) BASOPHILS RELATIVE PERCENT 0 % (BEAKER) (test code = 437) NEUTROPHILS ABSOLUTE COUNT 3.23 K/ L 1.56-6.13 (BEAKER) (test code = 670) LYMPHOCYTES ABSOLUTE COUNT 0.40 K/ L 1.18-3.74 L (BEAKER) (test code = 414) MONOCYTES ABSOLUTE COUNT (BEAKER) 0.29 K/ L 0.24-0.36 (test code = 415) EOSINOPHILS ABSOLUTE COUNT 0.05 K/ L 0.04-0.36 (BEAKER) (test code = 416) BASOPHILS ABSOLUTE COUNT (BEAKER) 0.01 K/ L 0.01-0.08 (test code = 417) IMMATURE GRANULOCYTES-RELATIVE 0 % 0-1 PERCENT (BEAKER) (test code = 2801) [id number] 10:05:00 Test Item Value Reference Range Interpretation Comments PARTIAL THROMBOPLASTIN TIME 33.9 seconds 22.5-36.0 (BEAKER) (test code = 760) PROTHROMBIN TIME/[id number] 09:59:00 Test Item Value Reference Range Interpretation Comments PROTIME (BEAKER) (test code = 14.6 seconds 11.9-14.2 H 759) INR (BEAKER) (test code = 370) 1.2 <=5.9 Effective 08/04/2018: PT Reference Range ChangeNew: 11.9-14.2 Previous: 11.7- 14.7RECOMMENDED COUMADIN/WARFARIN INR THERAPY RANGESSTANDARD DOSE: 2.0-3.0 Includes: PROPHYLAXIS for venous thrombosis, systemic embolization; TREATMENT for venous thrombosis and/or pulmonary embolus.HIGH RISK: Target INR is2.5-3.5 for patients wiht mechanical heart valves.MR, ABDOMEN, [id number] 13:08:00 Referring: Dr. Najma Robledo Abdominal VesselsFINAL REPORT TECHNIQUE: MRI of the abdomen WITHOUT and WITH intravenous contrast. INDICATION: HCC,hcv,cirrhosis. COMPARISON: MRI from 02/11/2019. FINDINGS: LOWER THORAX: Unremarkable. LIVER: Nodular, cirrhotic liver. Arterial enhancing liver lesions as follow:*An arterially enhancing lesion in segment V on axial arterial phase image 79 measures 1.5 cm without washout or pseudocapsule formation. This is recurrent tumor at a prior embolization site.*An arterially enhancing lesion in segment IV arterially enhances, washes out, and forms a pseudocapsule. This measures 2 cm on axial delayed phase image 82, previously 1.7 cm.*The previously seen area of arterial enhancement, washout, and pseudocapsule formation in segment III now has two separate foci of arterial enhancement which measure 0.5 cm and 0.6 cm with washout, most consistent with a small amount of residual tumor as best seen on axial arterial phase image 64.*An area of arterial phase enhancement with washout in segment IV measures 1.3 cm on axial arterial phase image 37, previously 1 cm. No pseudocapsule formation.*An area of arterial phase peripheral enhancement in segment VIII on axial arterial phase image 35 measures 1.2 cm with washout, unchanged. No pseudocapsule formation.*Additional scattered areas of arterial phase hyperenhancement at the periphery of segment segment VII are nonspecific and may be perfusional.*An area of arterial phase hyperenhancement in segment V measures 0.9 cm on axial arterial phaseimage 72, unchanged. No definite washout or pseudocapsule formation.*An area of arterial phase hyperenhancement in segment 5 measures 0.6 cm on axial arterial phase image 89, new. No definite washout or pseudocapsule formation.*An area of arterial phase hyperenhancement in segment V measures 0.6 cm onaxial arterial phase image 91, previously 0.4 cm. no definite washout or pseudocapsule formation.*Anarterially enhancing focus in segment IV measures 0.6 cm on axial arterial phase image 73, new. No washout is a calcification. A cyst in segment V measures 0.7 cm. BILIARY: The gallbladder is filled with stones. No biliary ductal dilatation or filling defect.SPLEEN: 16.4 cm splenomegaly.PANCREAS: No fo pablito masses or ductal dilatation. Cysts in the pancreatic tail measure 0.9 cm and 0.7 cm, unchanged. A cystic lesion in the pancreatic head measures 1.1 cm and is unchanged. ADRENALS: No adrenal nodules.KIDNEYS/URETERS: No hydronephrosis or solid mass lesions. PERITONEUM/RETROPERITONEUM: Trace free fluid in the pelvis.LYMPH NODES: No lymphadenopathy.VESSELS: Retroaortic left renal vein. Conventional hepatic arterial anatomy. Small esophageal varices. The main portal vein is patent and measures 1.5 cmin diameter. GI TRACT: No distention or wall thickening. BONES AND SOFT TISSUES: Unremarkable. IMPRESSION: 1.There are three foci of hepatocellular carcinoma which measure 1.5 cm, 2 cm, and 0.6 cm. The 1.5 cm area in segment V and 0.6 cm area in segment III are residual disease. The 2 cm area is in segment IV. 2.There are two additional areas which are concerning for but not diagnostic of hepatocellular carcinoma which measure 1.2 cm and 1 cm in segments VIII and IV, respectively. 3.Cirrhosis with sequelae of portal hypertension including splenomegaly and small esophageal varices. 4.The pancreaticcysts measure up to 1.1 cm and are unchanged. These are most likely small sidebranch intraductal papillary mucinous neoplasms. No ductal dilation or nodular component to suggest malignant transformation. Signed: Jose D Rivers MDReport Verified Date/Time: 05/27/2019 13:08:16 Reading Location: [facility] Imaging Reading Room - [place] [address] MR abdomen without & with IV contrast 2019-05-27 13:08:00Interface, External Ris In - 05/27/2019 1:10 PM CDTFINAL REPORT TECHNIQUE: MRI of the abdomen WITHOUT and WITH intravenous contrast. INDICATION: HCC,hcv,cirrhosis. COMPARISON: MRI from 02/11/2019. FINDINGS: LOWER THORAX: Unremarkable. LIVER: Nodular, cirrhotic liver. Arterial enhancing liver lesions as follow:*An arterially enhancing lesion in segment V on axial arterial phaseimage 79 measures 1.5 cm without washout or pseudocapsule formation. This is recurrent tumor at a prior embolization site.*An arterially enhancing lesion in segment IV arterially enhances, washes out, and forms a pseudocapsule. This measures 2 cm on axial delayed phase image 82, previously 1.7 cm.*Thepreviously seen area of arterial enhancement, washout, and pseudocapsule formation in segment III now has two separate foci of arterial enhancement which measure 0.5 cm and 0.6 cm with washout, most consistent with a small amount of residual tumor as best seen on axial arterial phase image 64.*An areaof arterial phase enhancement with washout in segment IV measures 1.3 cm on axial arterial phase image 37, previously 1 cm. No pseudocapsule formation.*An area of arterial phase peripheral enhancement in segment VIII on axial arterial phase image 35 measures 1.2 cm with washout, unchanged. No pseudocapsule formation.*Additional scattered areas of arterial phase hyperenhancement at the periphery of segment segment VII are nonspecific and may be perfusional.*An area of arterial phase hyperenhancement in segment V measures 0.9 cm on axial arterial phase image 72, unchanged. No definite washout or pseudocapsule formation.*An area of arterial phase hyperenhancement in segment 5 measures 0.6 cm on axialarterial phase image 89, new. No definite washout or pseudocapsule formation.*An area of arterial phase hyperenhancement in segment V measures 0.6 cm on axial arterial phase image 91, previously 0.4 cm. no definite washout or pseudocapsule formation.*An arterially enhancing focus in segment IV measures 0.6 cm on axial arterial phase image 73, new. No washout is a calcification. A cyst in segment V measures 0.7 cm. BILIARY: The gallbladder is filled with stones. No biliary ductal dilatation or filling defect.SPLEEN: 16.4 cm splenomegaly.PANCREAS: No focal masses or ductal dilatation. Cysts in the pancreatic tail measure 0.9 cm and 0.7 cm, unchanged. A cystic lesion in the pancreatic head measures 1.1 cm and is unchanged. ADRENALS: No adrenal nodules.KIDNEYS/URETERS: No hydronephrosis or solid masslesions. PERITONEUM/RETROPERITONEUM: Trace free fluid in the pelvis.LYMPH NODES: No lymphadenopathy.VESSELS: Retroaortic left renal vein. Conventional hepatic arterial anatomy. Small esophageal varices. The main portal vein is patent and measures 1.5 cm in diameter. GI TRACT: No distention or wall thickening. BONES AND SOFT TISSUES: Unremarkable. IMPRESSION: 1.There are three foci of hepatocellular carcinoma which measure 1.5 cm, 2 cm, and 0.6 cm. The 1.5 cm area in segment V and 0.6 cm area in segment III are residual disease. The 2 cm area is in segment IV. 2.There are two additional areas whichare concerning for but not diagnostic of hepatocellular carcinoma which measure 1.2 cm and 1 cm in se gments VIII and IV, respectively. 3.Cirrhosis with sequelae of portal hypertension including splenomegaly and small esophageal varices. 4.The pancreatic cysts measure up to 1.1 cm and are unchanged. These are most likely small sidebranch intraductal papillary mucinous neoplasms. No ductal dilation or nodular component to suggest malignant transformation. Signed: Jose D Rivers MDReport Verified Date/Time: 05/27/2019 13:08:16 Reading Location: [facility] Diagnostic Imaging Reading Room - [place] [id number] [facility] tumor [id number] 12:15:00 Test Item Value Reference Range Interpretation Comments Alpha-Fetoprotein (test 16.8 ng/mL <10.0 H code = 1834-1) JEFF (test code = JEFF) Claims Adjudicator ID - NTP Lab Interpretation (test Abnormal code = 62705-4) [facility] TUMOR [id number] 12:15:00 Test Item Value Reference Range Interpretation Comments ALPHA-FETOPROTEIN (BEAKER) (test 16.8 ng/mL <10.0 H code = 1094) Claims Adjudicator ID - NTPCT, CHEST, WITHOUT [id number] 11:55:00Referring: Dr. Najma Underwood REPORT CT OF THE CHEST CLINICAL HISTORY: HCC, Cirrhosis TECHNIQUE: CT of the chest is performed without intravenous contrast administration. This exam was performed according to our departmental dose-optimization program which includes automated exposure control, adjustment of the mA and/or kV according to patient size and/or use of iterative reconstruction technique. COMPARISON FILM: CT scan of the chest dated 02/23/2019 DISCUSSION: LINES/TUBES: None LUNGS/AIRWAYS: The trachea and central airways are patent. Lungs are clear.PLEURA: No pleural effusion or pneumothorax. HEART AND MEDIASTINUM: Within normal limits. BONES AND SOFT TISSUES: Mild degenerative changes are seen in the spine. Degenerative changes are also seen in the shoulders. Soft tissues are unremarkable.UPPER ABDOMEN: The liver is cirrhotic. Several granulomas are seen in the liver. Sludge/stones are partially visualized in the visualized portions of the gallbladder. IMPRESSION: 1. Cirrhotic liver. 2. Clear lungs. Signed: Brandy Rivaseport Verified Date/Time: 05/27/2019 11:55:12 Reading Location: [address] Radiology Reading Room CT chest without IV [id number] 11:55:00Interface, External Ris In - 05/27/2019 11:[address] OF THE CHEST CLINICAL HISTORY: HCC, Cirrhosis TECHNIQUE: CT of the chest is performed without intravenous contrast administration. This exam was performed according to our departmental dose-optimization programwhich includes automated exposure control, adjustment of the mA and/or kV according to patient size a nd/or use of iterative reconstruction technique. COMPARISON FILM: CT scan of the chest dated 02/23/2019 DISCUSSION: LINES/TUBES: None LUNGS/AIRWAYS: The trachea and central airways are patent. Lungs are clear.PLEURA: No pleural effusion or pneumothorax.HEART AND MEDIASTINUM: Within normal limits. BONES AND SOFT TISSUES: Mild degenerative changes are seen in the spine. Degenerative changes are also seen in the shoulders. Soft tissues are unremarkable. UPPER ABDOMEN: The liver is cirrhotic. Several granulomas are seen in the liver. Sludge/stones are partially visualized in the visualized portions ofthe gallbladder. IMPRESSION: 1. Cirrhotic liver. 2. Clear lungs. Signed: Brandy Rivas MDReport Verified Date/Time: 05/27/2019 11:55:12 Reading Location: [address] Radiology Reading [facility] [id number] 11:53:00 Test Item Value Reference Range Interpretation Comments Sodium (test code = 136 meq/L 163-966 8270-2) Potassium (test code = 3.9 meq/L 3.5-5.1 2823-3) Chloride (test code = 106 meq/L 98-107 2075-0) CO2 (test code = 22 meq/L 22-29 2028-9) BUN (test code = 14 mg/dL 7-21 3094-0) Creatinine (test code 0.92 mg/dL 0.57-1.25 = 2160-0) Glucose (test code = 192 mg/dL 70-105 H 2345-7) Calcium (test code = 9.0 mg/dL 8.4-10.2 24446-9) EGFR (test code = 61 mL/min/1.73 [place] [address]-0) NOT ACCURATE CREATININE CLEARANCE IN PREDICTING GLOMERULAR FILTRATION RATE . ESTIMATED GFR I S NOT APPLICABLE FOR DIALYSIS PATIENTS. JEFF (test code = JEFF) Claims Adjudicator ID - NTP Lab Interpretation Abnormal (test code = 00348-3) [facility] [id number] 11:53:00 Test Item Value Reference Range Interpretation Comments Protein, Total (test code = 7.1 6.0- 8.3 gm/dL 2885-2) Albumin (test code = 3.9 g/dL 3.5-5 60247-8) Total Bilirubin (test code 0.7 mg/dL 0.2-1.2 = 1975-2) Bilirubin, Direct (test 0.4 mg/dL 0.1-0.5 code = 1968-7) Alkaline Phosphatase (test 138 U/L 40-150 code = 6768-6) AST (test code = 1920-8) 20 U/L 5-34 ALT (test code = 1742-6) 17 U/L 6-55 JEFF (test code = JEFF) Claims Adjudicator ID - NTP Lab Interpretation (test Normal code = 17691-7) [facility] [id number] 11:53:00 Test Item Value Reference Range Interpretation Comments TOTAL PROTEIN (BEAKER) (test code = 7.1 gm/dL 6.0-8.3 770) ALBUMIN (BEAKER) (test code = 1145) 3.9 g/dL 3.5-5.0 BILIRUBIN TOTAL (BEAKER) (test code 0.7 mg/dL 0.2-1.2 = 377) BILIRUBIN DIRECT (BEAKER) (test 0.4 mg/dL 0.1-0.5 code = 706) ALKALINE PHOSPHATASE (BEAKER) (test 138 U/L 40-150 code = 346) AST (SGOT) (BEAKER) (test code = 20 U/L 5-34 353) ALT (SGPT) (BEAKER) (test code = 17 U/L 6-55 347) Claims Adjudicator ID - NTPBASIC METABOLIC [id number] 11:53:00 Test Item Value Reference Range Interpretation Comments SODIUM (BEAKER) 136 meq/L 136-145 (test code = 381) POTASSIUM (BEAKER) 3.9 meq/L 3.5-5.1 (test code = 379) CHLORIDE (BEAKER) 106 meq/L 98-107 (test code = 382) CO2 (BEAKER) (test 22 meq/L 22-29 code = 355) BLOOD UREA NITROGEN 14 mg/dL 7-21 (BEAKER) (test code = 354) CREATININE (BEAKER) 0.92 mg/dL 0.57-1.25 (test code = 358) GLUCOSE RANDOM 192 mg/dL 70-105 H (BEAKER) (test code = 652) CALCIUM (BEAKER) 9.0 mg/dL 8.4-10.2 (test code = 697) EGFR (BEAKER) (test 61 mL/min/1.73 ESTIMA LUCIAN GFR IS code = 1092) sq m NOT ACCURATE CREATININE CLEARANCE IN PREDICTING GLOMERULAR FILTRATION RATE . ESTIMATED GFR I S NOT APPLICABLE FOR DIALYSIS PATIEN TS. Claims Adjudicator ID - NTPPROTHROMBIN TIME/[id number] 11:38:00 Test Item Value Reference Range Interpretation Comments PROTIME (BEAKER) (test code = 14.5 seconds 11.9-14.2 H 759) INR (BEAKER) (test code = 370) 1.2 <=5.9 Effective 08/04/2018: PT Reference Range ChangeNew: 11.9-14.2 Previous: 11.7- 14.7RECOMMENDED COUMADIN/WARFARIN INR THERAPY RANGESSTANDARD DOSE: 2.0-3.0 Includes: PROPHYLAXIS for venous thrombosis, systemic embolization; TREATMENT for venous thrombosis and/or pulmonary embolus.HIGH RISK: Target INR is2.5-3.5 for patients wiht mechanical heart valves.CBC W/PLT COUNT & AUTO [id number] 11:31:00 Test Item Value Reference Range Interpretation Comments WHITE BLOOD CELL COUNT (BEAKER) 4.5 K/ L 3.5-10.5 (test code = 775) RED BLOOD CELL COUNT (BEAKER) 4.04 M/ L 3.93-5.22 (test code = 761) HEMOGLOBIN (BEAKER) (test code = 10.5 GM/DL 11.2-15.7 L 410) HEMATOCRIT (BEAKER) (test code = 32.4 % 34.1-44.9 L 411) MEAN CORPUSCULAR VOLUME (BEAKER) 80.2 fL 79.4-94.8 (test code = 753) MEAN CORPUSCULAR HEMOGLOBIN 26.0 pg 25.6-32.2 (BEAKER) (test code = 751) MEAN CORPUSCULAR HEMOGLOBIN CONC 32.4 GM/DL 32.2-35.5 (BEAKER) (test code = 752) RED CELL DISTRIBUTION WIDTH 14.6 % 11.7-14.4 H (BEAKER) (test code = 412) PLATELET COUNT (BEAKER) (test 109 K/CU MM 150-450 L code = 756) MEAN PLATELET VOLUME (BEAKER) 9.7 fL 9.4-12.3 (test code = 754) NUCLEATED RED BLOOD CELLS 0 /100 WBC 0-0 (BEAKER) (test code = 413) NEUTROPHILS RELATIVE PERCENT 80 % (BEAKER) (test code = 429) LYMPHOCYTES RELATIVE PERCENT 11 % (BEAKER) (test code = 430) MONOCYTES RELATIVE PERCENT 7 % (BEAKER) (test code = 431) EOSINOPHILS RELATIVE PERCENT 1 % (BEAKER) (test code = 432) BASOPHILS RELATIVE PERCENT 0 % (BEAKER) (test code = 437) NEUTROPHILS ABSOLUTE COUNT 3.62 K/ L 1.56-6.13 (BEAKER) (test code = 670) LYMPHOCYTES ABSOLUTE COUNT 0.51 K/ L 1.18-3.74 L (BEAKER) (test code = 414) MONOCYTES ABSOLUTE COUNT (BEAKER) 0.32 K/ L 0.24-0.36 (test code = 415) EOSINOPHILS ABSOLUTE COUNT 0.06 K/ L 0.04-0.36 (BEAKER) (test code = 416) BASOPHILS ABSOLUTE COUNT (BEAKER) 0.01 K/ L 0.01-0.08 (test code = 417) IMMATURE GRANULOCYTES-RELATIVE 0 % 0-1 PERCENT (BEAKER) (test code = 2801) [id number] 10:08:00 Test Item Value Reference Range Interpretation Comments POC-Creatinine (test 0.8 mg/dL 0.6-1.3 : TESTE D AT [facility] 67 code = 1859) [facility] [place], [address]: Claims Adjudicator/Techni gianluca ID = [id number] for Eir[place] an-[place] POC-EGFR (test code 72 mL/min/1.73M2 = 1860) [facility]-[id number] 10:08:00 Test Item Value Reference Range Interpretation Comments POC-CREATININE 0.8 mg/dL 0.6-1.3 : TESTED AT [facility] (BEAKER) (test [address] [place] [address] code = 1859) [place], [address]: Claims Adjudicator/Techni gianluca ID = [id number] for Eirvan-JayMoriah POC-EGFR (NATE) 72 mL/min/1.73M2 (test code = 1860) CT, ABDOMEN, WITHOUT [id number] 19:39:00Referring: Dr. Najma field performed at [facility] in CT department.Anesthesia:- >NonePlease specify abdominal organs:->LiverFINAL REPORT TECHNIQUE: CT of the abdomen WITHOUT intravenous contrast and WITHOUT oral contrast. Dose modulation, iterative reconstruction, and/or weight-based adjustment of themA/kV was utilized to reduce the radiation dose [...] No gallbladder distention or wall thickening.SPLEEN: 16.2 cmsplenomegaly.PANCREAS: No focal masses or ductal dilatation. ADRENALS: [...] moderate splenomegaly. 3.Cholelithiasis without acute cholecystitis. Signed: Jose D Rivers Verified Date/Time: 04/15/2019 19:39:35 Reading Location: [facility] C013Y CT Body Reading Room Electronicallysigned by: JOSE D RIVERS MD on 04/15/2019 07:39 PMCT abdomen without IV [id number] 19:39:00Interface, External Ris In - 04/15/2019 7:41 PM CSTFINAL REPORT TECHNIQUE: CT of the abdomen WITHOUT intravenous contrast and WITHOUT oral contrast. Dose modulation, iterative reconstruction, [...] 16.2 cm splenomegaly.PANCREAS: No focal masses or ductaldilatation. ADRENALS: No adrenal nodules.KIDNEYS/URETERS: No hydronephrosis or exophytic masses. Contrast in the renal collecting system. PERITONEUM/RETROPERITONEUM: No free air or fluid.LYMPH NODES: No lymphadenopathy. The prominent upper abdominal lymph nodes are nonspecific but likely reactive. A difficult to assess without intravenous contrast.VESSELS: Mild aortic calcification. GI TRACT: No distention or wall thickening. The appendix is normal. BONES AND SOFT TISSUES: Moderate degenerative discchanges at L5-S1. IMPRESSION: 1.The previously seen arterially enhancing liver lesions were better evaluated on the prior MRI. 2.Cirrhosis with moderate splenomegaly. 3.Cholelithiasis without acute cholecystitis. Signed: Jose D Rivers MDReport Verified Date/Time: 04/15/2019 19:39:35 Reading Location: [facility] B1 C013Y CT Body Reading Room [facility], EMBOLIZATION, EXTENSIVE - [id number] 16:59:00Referring: Dr. Najma Dominguez TACEReason for Exam:->HCC,hcv,cirrhosisFINAL REPORT Procedure: Transarterial chemoembolization of the liver. History: Liver cirrhosis, hepatitis C, hepatocellularcarcinoma, multifocal, status post treatment the right lobe of the liver on August 30, 2018. Follow-upMRI on 02/11/2019 was discussed in the tumor board and showed active disease in the segment three andfour of the liver. A TACE was recommended. PrimaryOperator: Randy Radford M.D. Clinical Program Manager: Alex Dickerson Modality: Sonography and fluoroscopy. DOSE [...] was performed prior to starting the procedure. Theprocedure room personnel used personal protective equipment. The [...] the artery was accessed with a micropuncture device.Eventually a guide wire was placed using standard exchanges. Over the wire a 5 Bhutanese vascular sheath was placed. The sheath was connected to a heparinized saline drip. Over the wire, a 5 Bhutanese reverse curve catheter was placed. This was followed by selective catheterization of the following arteries : Superior mesenteric artery, celiac artery. This was followed by superselective catheterization ofthe following arteries: The middle hepatic artery, the left hepatic artery. The equipment used for selective catheterization was Sos two catheter and Bentson wire. The equipment used for superselectivecatheterization was Pro great catheter, fathom wire, Transend wire, Direxion catheter. At each catheterization and superselective catheterization, following test injection, a digital subtraction angiography run was performed. This was followed by superselective embolization of the left hepatic artery.The agent used for embolization was Oncozene 100 um diameter, 2 cc, loaded with doxorubicin 100 mg. The endpoint of embolization was near stasis. Approximately 100 % of the target dose was administered(100 mg of doxorubicin). At the end of [...] main portal vein that is patent with hepatopedalflow. There is no supply to the tumor from the middle hepatic artery. There is supply to the tumors from the left hepatic artery. The segmental arteries are tiny. The segment two is small. Therefore itwas decided to perform lobar embolization of the left lobe of the liver from the left hepatic arterybranch point. The endpoint was tumor devascularization with persistent forward flow in the segmentalarteries. Impression: Successful transarterial chemoembolization of two tumors in left lobe of the liver. The agent used for chemoembolization is mentioned above. The administered dose is mentioned above. The endpoint is mentioned above. The patient was discharged home in stable condition. Follow-up imaging in 4-6 weeks as per the referring do ctor. Thank you for the opportunity to assist in the care of your patient. Signed: Randy Radford MDReport Verified Date/Time: 04/15/2019 16:59:24 Reading Location: [facility] B1 P048 Angio Body Reading Room Insert peripheral [id number] 13:11:01 Willis Dickerson 04/15/2019 1:17 PM Interventional Radiology Post Procedure Note PROCEDURE:TACE INDICATION/ PRE-OP DIAGNOSIS: HCC. POST-OP DIAGNOSIS: Same. IMPLANT: Doxorubicin infused 100mg Oncozene RADIOLOGIST: Dr. Radford POLYMER CHEMIST: Tuan EBL: < 5 cc. SPECIMEN: None CONSCIOUS SEDATION: 1 mg Versed, 50 microgram Fentanyl intravenously. APPROACH: R ICT SALES REPRESENTATIVE. PRELIMINARY FINDINGS: Left hepatic lobe tumor blush s/p LHA injection of doxorubicin infused oncozenes. COMPLICATIONS: None. INSTRUCTIONS: Flat bedrest and restricted RLE movement for 3 hours, d/c home in 6 hours. *Preliminary Findings Only. Final Report to Follow Willis Dickerson M.D.Interventional Radiology Fellow, PGY- 1:11 [facility] HospitalCOMPREHENSIVE METABOLIC PANEL 2019-04-15 09:22:00 Test Item Value Reference Range Interpretation Comments TOTAL PROTEIN 6.9 gm/dL 6.0-8.3 (BEAKER) (test code = 770) ALBUMIN (BEAKER) 3.7 g/dL 3.5-5.0 (test code = 1145) ALKALINE PHOSPHATASE 97 U/L 40-150 (BEAKER) (test code = 346) BILIRUBIN TOTAL 1.0 mg/dL 0.2-1.2 (BEAKER) (test code = 377) SODIUM (BEAKER) (test 136 meq/L 136-145 code = 381) POTASSIUM (BEAKER) 3.8 meq/L 3.5-5.1 (test code = 379) CHLORIDE (BEAKER) 105 meq/L 98-107 (test code = 382) CO2 (BEAKER) (test 23 meq/L 22-29 code = 355) BLOOD UREA NITROGEN 23 mg/dL 7-21 H (BEAKER) (test code = 354) CREATININE (BEAKER) 0.94 mg/dL 0.57-1.25 (test code = 358) GLUCOSE RANDOM 153 mg/dL 70-105 H (BEAKER) (test code = 652) CALCIUM (BEAKER) 9.2 mg/dL 8.4-10.2 (test code = 697) AST (SGOT) (BEAKER) 20 U/L 5-34 (test code = 353) ALT (SGPT) (BEAKER) 16 U/L 6-55 (test code = 347) EGFR (BEAKER) (test 60 mL/min/1.73 ESTIMA LUCIAN GFR IS code = 1092) sq m NOT ACCURATE CREATININE CLEARANCE IN PREDICTING GLOMERULAR FILTRATION RATE . ESTIMATED GFR I S NOT APPLICABLE FOR DIALYSIS PATIEN TS. Claims Adjudicator ID - AAMIR [id number] 09:06:00 Test Item Value Reference Range Interpretation Comments PARTIAL THROMBOPLASTIN TIME 31.1 seconds 22.5-36.0 (BEAKER) (test code = 760) PROTHROMBIN [id number] 09:04:00 Test Item Value Reference Range Interpretation Comments PROTIME (BEAKER) (test code = 14.8 seconds 11.9-14.2 H 759) INR (BEAKER) (test code = 370) 1.2 <=5.9 Effective 08/04/2018: PT Reference Range ChangeNew: 11.9-14.2 Previous: 11.7- 14.7RECOMMENDED COUMADIN/WARFARIN INR THERAPY RANGESSTANDARD DOSE: 2.0-3.0 Includes: PROPHYLAXIS for venous thrombosis, systemic embolization; TREATMENT for venous thrombosis and/or pulmonary embolus.HIGH RISK: Target INR is2.5-3.5 for patients wiht mechanical heart valves.CBC W/PLT COUNT & AUTO [id number] 08:54:00 Test Item Value Reference Range Interpretation Comments WHITE BLOOD CELL COUNT (BEAKER) 3.3 K/ L 3.5-10.5 L (test code = 775) RED BLOOD CELL COUNT (BEAKER) 4.34 M/ L 3.93-5.22 (test code = 761) HEMOGLOBIN (BEAKER) (test code = 11.0 GM/DL 11.2-15.7 L 410) HEMATOCRIT (BEAKER) (test code = 34.5 % 34.1-44.9 411) MEAN CORPUSCULAR VOLUME (BEAKER) 79.5 fL 79.4-94.8 (test code = 753) MEAN CORPUSCULAR HEMOGLOBIN 25.3 pg 25.6-32.2 L (BEAKER) (test code = 751) MEAN CORPUSCULAR HEMOGLOBIN CONC 31.9 GM/DL 32.2-35.5 L (BEAKER) (test code = 752) RED CELL DISTRIBUTION WIDTH 16.4 % 11.7-14.4 H (BEAKER) (test code = 412) PLATELET COUNT (BEAKER) (test code 81 K/CU MM 150-450 L = 756) MEAN PLATELET VOLUME (BEAKER) 9.4 fL 9.4-12.3 (test code = 754) NUCLEATED RED BLOOD CELLS (BEAKER) 0 /100 WBC 0-0 (test code = 413) NEUTROPHILS RELATIVE PERCENT 75 % (BEAKER) (test code = 429) LYMPHOCYTES RELATIVE PERCENT 16 % (BEAKER) (test code = 430) MONOCYTES RELATIVE PERCENT 8 % (BEAKER) (test code = 431) EOSINOPHILS RELATIVE PERCENT 1 % (BEAKER) (test code = 432) BASOPHILS RELATIVE PERCENT 0 % (BEAKER) (test code = 437) NEUTROPHILS ABSOLUTE COUNT 2.44 K/ L 1.56-6.13 (BEAKER) (test code = 670) LYMPHOCYTES ABSOLUTE COUNT 0.52 K/ L 1.18-3.74 L (BEAKER) (test code = 414) MONOCYTES ABSOLUTE COUNT (BEAKER) 0.27 K/ L 0.24-0.36 (test code = 415) EOSINOPHILS ABSOLUTE COUNT 0.02 K/ L 0.04-0.36 L (BEAKER) (test code = 416) BASOPHILS ABSOLUTE COUNT (BEAKER) 0.01 K/ L 0.01-0.08 (test code = 417) IMMATURE GRANULOCYTES-RELATIVE 0 % 0-1 PERCENT (BEAKER) (test code = 2801) CT, CHEST, WITHOUT [id number] 15:05:00Referring: Dr. Najma Underwood REPORT TECHNIQUE: CT [...] MDReport Verified Date/Time: 02/23/2019 15:05:09 Reading Location: [address] Radiology Reading Room MR, ABDOMEN, [id number] 15:59:00Referring: Dr. Najma Robledo Abdominal VesselsFINAL REPORT MRI of the abdomen, with and without contrast. History: C, cirrh osis. Comparison: 11/05/2018, 07/16/2018. Technique: Multiplanar, multisequence imaging [...] 8 lesion, 1.2 cm, no washout or pseudocapsule, unchanged.- Segment 3 lesion, 0.9 cm, no washout or pseudocapsule, unchanged.- Segment 5 lesion, 0.8 cm, no washout [...] spleen is enlarged measuring over 17 cm in length. The pancreas, kidneys and adrenal glands are unremarkable. The visualized loops of bowel andosseous structures are normal. There is no evidence of adenopathy. IMPRESSION: 1. Cirrhotic liverwith stable segment 5 previously treated HCC and stable segment 4 HCC. Additional lesions as described above.2. Splenomegaly and portal vein enlargement are again noted.3. Cholelithiasis. Signed: Reynold Rose MDReport Verified Date/Time: 02/11/2019 15:59:27 Reading Location: [address] RadiologyReading Room BONE AND/OR JOINT IMAGING, WHOLE [id number] 14:35:00Referring: Dr. Najma BroderickFINAL REPORT PROCEDURE: BONE SCAN, WHOLE BODY CPT CODE: 45048 SORAYA CATION: Hepatocellular carcinoma PROTOCOL: 21.4 mCi of Tc-99m [...] abdomen and CT chest on 11/05/2018. Signed: Afua Dove Verified Date/Time: 02/11/2019 14:35:45 Reading Location: [address] Reading Room NM bone scan whole [id number] 14:35:00 Interface, External Ris In - 02/11/2019 2:37 PM CSTFINAL REPORT PROCEDURE: BONE SCAN, WHOLE BODY CPT CODE: 24391 INDICATION: Hepatocellular carcinoma PROTOCOL: 21.4 mCi of [...] and peripheral joints.3.No significant change since prior study on 06/02/2018. Images for comparison/correlation were MR abdomen and CT chest on 11/05/2018. Signed: Afua Dove Verified Date/Time: 02/11/2019 14:35:45 Reading Location: [address] Aqdot Reading Room [facility]ALPHA FETOP[facility]OTE[facility] (AFP), TUMOR [id number] 11:40:00 Test Item Value Reference Range Interpretation Comments ALPHA-FETOPROTEIN (BEAKER) (test 6.8 ng/mL <10.0 code = 1094) HEPATIC FUNCTION [id number] 11:01:00 Test Item Value Reference Range Interpretation Comments TOTAL PROTEIN (BEAKER) (test code = 7.1 gm/dL 6.0-8.3 770) ALBUMIN (BEAKER) (test code = 1145) 3.7 g/dL 3.5-5.0 BILIRUBIN TOTAL (BEAKER) (test code 0.8 mg/dL 0.2-1.2 = 377) BILIRUBIN DIRECT (BEAKER) (test 0.4 mg/dL 0.1-0.5 code = 706) ALKALINE PHOSPHATASE (BEAKER) (test 126 U/L 40-150 code = 346) AST (SGOT) (BEAKER) (test code = 21 U/L 5-34 353) ALT (SGPT) (BEAKER) (test code = 17 U/L 6-55 347) BASIC METABOLIC [id number] 11:01:00 Test Item Value Reference Range Interpretation Comments SODIUM (BEAKER) 138 meq/L 136-145 (test code = 381) POTASSIUM (BEAKER) 4.4 meq/L 3.5-5.1 (test code = 379) CHLORIDE (BEAKER) 102 meq/L 98-107 (test code = 382) CO2 (BEAKER) (test 31 meq/L 22-29 H code = 355) BLOOD UREA NITROGEN 16 mg/dL 7-21 (BEAKER) (test code = 354) CREATININE (BEAKER) 0.79 mg/dL 0.57-1.25 (test code = 358) GLUCOSE RANDOM 149 mg/dL 70-105 H (BEAKER) (test code = 652) CALCIUM (BEAKER) 9.2 mg/dL 8.4-10.2 (test code = 697) EGFR (BEAKER) (test 73 mL/min/1.73 ESTIMA LUCIAN GFR IS code = 1092) sq m NOT ACCURATE CREATININE CLEARANCE IN PREDICTING GLOMERULAR FILTRATION RATE . ESTIMATED GFR I S NOT APPLICABLE FOR DIALYSIS PATIEN TS. [id number] 10:54:00 Test Item Value Reference Range Interpretation Comments POC-CREATININE 0.7 mg/dL 0.6-1.3 TESTED AT [facility] 6720 (BEAKER) ([place] code = 1859) [address] POC-EGFR (BEAKER) 84 mL/min/1.73M2 (test code = 1860) CBC W/PLT COUNT & AUTO [id number] 10:47:00 Test Item Value Reference Range Interpretation Comments WHITE BLOOD CELL COUNT (BEAKER) 4.6 K/ L 3.5-10.5 (test code = 775) RED BLOOD CELL COUNT (BEAKER) 4.22 M/ L 3.93-5.22 (test code = 761) HEMOGLOBIN (BEAKER) (test code = 10.4 GM/DL 11.2-15.7 L 410) HEMATOCRIT (BEAKER) (test code = 34.1 % 34.1-44.9 411) MEAN CORPUSCULAR VOLUME (BEAKER) 80.8 fL 79.4-94.8 (test code = 753) MEAN CORPUSCULAR HEMOGLOBIN 24.6 pg 25.6-32.2 L (BEAKER) (test code = 751) MEAN CORPUSCULAR HEMOGLOBIN CONC 30.5 GM/DL 32.2-35.5 L (BEAKER) (test code = 752) RED CELL DISTRIBUTION WIDTH 15.2 % 11.7-14.4 H (BEAKER) (test code = 412) PLATELET COUNT (BEAKER) (test code 83 K/CU MM 150-450 L = 756) MEAN PLATELET VOLUME (BEAKER) 10.4 fL 9.4-12.3 (test code = 754) NUCLEATED RED BLOOD CELLS (BEAKER) 0 /100 WBC 0-0 (test code = 413) NEUTROPHILS RELATIVE PERCENT 81 % (BEAKER) (test code = 429) LYMPHOCYTES RELATIVE PERCENT 11 % (BEAKER) (test code = 430) MONOCYTES RELATIVE PERCENT 7 % (BEAKER) (test code = 431) EOSINOPHILS RELATIVE PERCENT 1 % (BEAKER) (test code = 432) BASOPHILS RELATIVE PERCENT 0 % (BEAKER) (test code = 437) NEUTROPHILS ABSOLUTE COUNT 3.69 K/ L 1.56-6.13 (BEAKER) (test code = 670) LYMPHOCYTES ABSOLUTE COUNT 0.51 K/ L 1.18-3.74 L (BEAKER) (test code = 414) MONOCYTES ABSOLUTE COUNT (BEAKER) 0.30 K/ L 0.24-0.36 (test code = 415) EOSINOPHILS ABSOLUTE COUNT 0.04 K/ L 0.04-0.36 (BEAKER) (test code = 416) BASOPHILS ABSOLUTE COUNT (BEAKER) 0.02 K/ L 0.01-0.08 (test code = 417) IMMATURE GRANULOCYTES-RELATIVE 0 % 0-1 PERCENT (BEAKER) (test code = 2801) PROTHROMBIN [id number] 10:42:00 Test Item Value Reference Range Interpretation Comments PROTIME (BEAKER) (test code = 14.1 seconds 11.9-14.2 759) INR (BEAKER) (test code = 370) 1.1 <=5.9 Effective 08/04/2018: PT Reference Range ChangeNew: 11.9-14.2 Previous: 11.7- 14.7RECOMMENDED COUMADIN/WARFARIN INR THERAPY RANGESSTANDARD DOSE: 2.0-3.0 Includes: PROPHYLAXIS for venous thrombosis, systemic embolization; TREATMENT for venous thrombosis and/or pulmonary embolus.HIGH RISK: Target INR is2.5-3.5 for patients wiht mechanical heart valves.Tissue [id number] 11:15:00 Test Item Value Reference Range Interpretation Comments Case Report (test code Surgical Pathology = 104) Report Case: [id number] Authorizing Provider: Joe Joshi Collected: 01/06/2019 1420 MD Amanda Ordering Location: [facility] Endoscopy Received: 01/07/2019 0815 Services Pathologist: Sheila Hamilton MD Specimen: Polyp, Colon - Rectosigmoid, TAKEN BY ESD, ON FOAM, EVALUATE MARGINS DIAGNOSIS (test code = [id number] 3220) FuZzEwMzNcZnRuYmpcdWMx HJmzsmZlUHble0AcM0LxKn AwMFxhbnNpXGRlZmxhbmcx QCOgBCM9urNkNNDgCMopWO FmYIjgZj0pkGWehZcyVuRv BCEjc1lolcGTdoqzaXy7u8 xtJGHaYqM5uUVpWZhxD3vd oaRbmXZgRFBfNPt5lI25GW GsrV8bwPXpSObemnKdZLyp ogXpwnViHsv6HSXdF1taFS OcZMWuB9VoNR9lFKKzZpq1 THQ7RMM5uPbgb9O2zBSjqY CbrNjaBxKpBsVoIOQIr6Df MTb0kMeyE3YsMVHgImW1wD QgUGFyYWdyYXBoIEZvbnQ7 eR72QSaaetG7aZRbf4Lht5 1ki186fR2vuXNuOKI8UGMs JADanTCeSMGvNFN3BPWwuW GkM7f2UmRjiUUyT2F0KhIz oYHfZ6W7CeUdySKfE1J0Pk TjcZJcVMTnpMZyVq6gjFBg oBCcin8jsv33JXU2r5NuoH kvHRC3EKN7NxWkYa3pvMPz VLGePA1zAaUjrIIsYQVayz 83sEjwKZdhuiUfsS3rFyRb QVEgjHAlZUXlZL8xeDDtYU HkkS0whynlZPObHpJnpxbt ZZFshKqalsYcBr4geKtkEW L7WHeyF8vuoM4cBnW0FJas G0uokO3cSSk2SQlwuZW9LM DbjZ3hJL1rnqpad4anWzQg OP8psfgof7liMlKlHX9nwu f4q0uvUjWcBK3hjghiz2vg NzIwXGhlYWRlcnkwXGZvb3 XpomncNVXrs0PsU9FvoGnr Y74ujNtdD20iXRDdyExrdQ 4eiMlicB6aYrXsKbLbHCys bFxwbGFpblxmMFxmczIwXH WgAAnsMUSaOYMsAtKmLI4r LnJVIZ9NVFjDT9pERIXCAH 5PRQYOM2cZAIutSM7WG2PE D7RCCbPNGCAAXGTFI0CNIN XHY7ZOY1JHG070XHVttbBa LSAgIFRVQlVMQVIgQURFTk 9NTQyuFi5yEBSWZUWdqhSm RAClSD3YU0QSOXEPCOSPHz MJQJaQOPvJIINPVNXTP2DG LQWGDW8eVETOLYqLAW6XRV jfDKXwRA4mXSUOQWCZCQ2Y WWULQwEQBI0ZKVKHTI9ZCE ZFE5JBYZIKHEAUILdJKA1i oLGzCFWkvykuSPR2f0usoX YxXHNzdGUxODAwMFxhbnNp KDDlMaakvfjvYXKdLMY0mz YbUHSoDXiwXQIkNPxaAf2i kXEdrRopFvTjCTQme1xesp ELenwpdLg7n7niQNRoAaA9 cDCyCFeyZ1oqpoRuaBUaKH QwKWs3xC20TCLgfD0vaUNq SHtxknUlLuG4ZHjsBNAdZa K4SRLacPMuNFKzT0xaOYQd DGelZZEsBVuyfCUiDGG4hV lwd0J6cHQtqNLfaKpzWqLb CxTsXdKMo9KcNWs2fRqzL1 YbVKEkTfF5iGJdQXUbJYza OEKbUBGcxtN3nG65RWlapf C8oDUvb9Gmx38ez739kF7m nGOkTYF5WURyZKVwcTCdOE WtTAJ2DHXriQZjU4klKSQk JV9zesfvXJteLDrxDCKggO Q9LNFhbFRfK0SqFOIkCMha OLDcdtx4WcQsYy7reORyuC jjLDgmw9hdj6qqfDRsLsp8 GDXhFwYcCufyNRhdc4Zta8 vzJLXfpy0wCTU0rQRyeCit u1K1cDKhEMWyoQCfGHFbUB 0yxUTjDUKxkA5dbelgOFUd YnJkcmhlYWRccGdicmRyZm 7kxAyrIPB8BLdeF1pmtV7o VmJ4OUqgE6femB5jCTk8WK vmZKJtyDY0pxY7UQFroLPe Y7UtjX4pXESzHF0ycvd9b6 ohHXG3MThyZEByDpG2yoQ1 NDBcaGVhZGVyeTcyMFxmb2 66HIK4MhTxMDYnc8EmI9Yk oIycY99mtXiqW69bNJFauA pvoF4jkZxbkF9nWoEoYnWa UKfkhWhwQN2kJEIpI7ycuH AdOSDdVBFcI0rsGaYvmW9s yHtsVBrdllTvLKLoCxz5AC IzkVTbRZQyRpv3GBUwMZTm S12jwyuxJTW5nP6ff4uxb5 XuWRtpHVZ7YDPbo38eXTol qbD9HDeeLe1jVlYqMJN7VA fiSLY3sQ== CPT Code(s) (test code a3dkkJJgRVQsaPUdDySsEU = 3357) OsSNCsh9ldAWQknZZqBlRp MzNcZnRuYmpcdWMxXGRlZm Ofj6ykk937wQOzd4chOGZw DjJ4iKIqFULhfYGlA946s7 wcl9zbcfNgdLX7PRJiDZV0 OYhblqElgrM3MCgjoMYnRv L0WSvpypHaHAufmrGesoQa Kpg6CAPlU743MLY8cPhhh5 hhQIG3QKDgTALcOnJpLk1r qUKhI072GTAkSOVXVPFyoY q2EQWhqwQuggSgnBNHa876 C791i0vqMXPmzhAekAjIyp gna3jiF832JFIueUHogkJv JsKxMZKezAOdgZO8JWWySS 6rqrulZpBgZN8hdrndNvDo WU9gcbs5HoVwCX0bwizbMf ExYPknSCUpgqlxOXSkm1Os hmjrDD1bS4Xwz1J3lH7dkB OqKHYbcAMkYiDdBXQfoj5m rGXxAErbj2IvKGD0pfO4xK BrmZSlEDVmYR49Hjldk1Eb GkhsEGB9LNUvbiWwa2Hbj2 odOdVgsySuC8ykW0NgMYWh PTXtWWFqPeQuegYub2Rdw2 AxdKJxjGt2l2utIWMdOPEv wNtwe7hgPCF1CWVxP5K3zH Kqw8nkIApiIGDfpTQ6gcja EWntTVOmfkE7zewcJRtdCN AvxNS3sguyFDtjXJUnOxK3 oqwaFWejQZZpFVM0UPuec6 80ZFQ7OGpfVmfuHDcjUVQz bmNvbnRccGduZGVjXHBsYW luXHBsYWluXGYwXGZzMjRc zXxvsDnwyB0gKjRcXgZbEL grAD3vIDExB6gwiWUeENSl SGYkV4yaDmCvgI6ypMvpCO erprNdFZn0ZkR9NDVksj5= CLINICAL HISTORY (test s6ettDPaNJZdeMXkVfUmPI code = 3356) XdJCBvx3yrUAWfwLEqBeWt MzNcZnRuYmpcdWMxXGRlZm Uso9mxn929vMXpz5dmYRKl VmF7wVOfUBXqrWJaP153f8 pel0mftnHfpOW3MAAtGLL9 GJkmtsIdxuC1ZYybeCVmSf W4CTfcbpPfUXumyuVegtJc Svx7SNRwF346YYB1sNvub4 qzEHM1HRWmWNVbAjPhIo4o aYEfZ638SMUuZOQKRCWybY p0YAEmanToxrKzxSLWu432 N566t2djVNIjpcWyoHqGxn lxo6kbD211WFOysQQowsVn SgTrDYLyxISjgMN1ZEHrXP 9zojnnMgKqJK6sawjqXsSo WO3hnmz6JjWdUS9ldaoyXc FjNAggLSEqfdhaVKXzq3Js mseiUL2oA1Hdq2B8tD3kdE KuKUVxvRSsDsEfSNIcgi7l hGKnHHkzn9LlXZE8rkN5cP HxxRNxMVZlMD25Pfecp9Nt UiwoOLL3FNPgjyIqy6Bkl9 hxAyGlsfHrC2yvG0IsTEOi RGLsLWDlJxOgliAvw5Duk9 JvdHXgdLn8a0czJMIvCNAl sFzzi9sbXWK6HHNeL5U4pS Ron3ldKOumLJSniTW2aqpm XAgfFCSienP8kedcXObpGF UbiGT3wvmdHSmlBYVkSeB7 qywsKLbdGWIyBYG8MEtdb7 59JOQ2QUkrXqzxWSazZZHx bmNvbnRccGduZGVjXHBsYW luXHBsYWluXGYwXGZzMjRc mQiueMzoaC8wFgZpBgYrUM heZG1sCRIiC5egeLAzBFAm IFHkU1smTkDwwO2qvCzkEJ hyfjPcZCXdPI6xfCE6s8Da TGLevFnoWC8lGPKzE02zoT RjK01fo00aJAWebf9= SPECIMEN SOURCE (test c8aafZGxLLGsdDBhIqDxQI code = 3377) VbJREfr9ozKNUrvKCoWqSy MzNcZnRuYmpcdWMxXGRlZm Pfq0ucx640aWFrg1cbKTQs TwE7aXMpCGIssYLlI405k1 civ4owpdGvcFK5UYUiJXP5 FEtyfmFxyyB9DBhkjEAnDx T3GXylfvGiFYsbgbQkclMn Roq4DAYuN184FNQ7bJvcm1 pcJRI4DALiIFJgOyNoBa7d yNHzH777VUNeDDZORKRprT w7KENnyrBlzkWjrNVCe255 X078p5zjOEUxhpMahQjMex uqv2cgC517BHUrtMNothQc TaSrJCDjzFHwxQL5OCJlVV 1kyyyxPzNbEB9qpwtcObNa CG2kofn3XnYjDB3tdtdySb YxXRdvHHZhyvbiAYWnh2Vl fhdiVG0wO7Kkg2V6eM0huL MmPLUriZVxBkTsZTFzrg0a oXDeSKuzv9TiREM8khZ0fO AamXNfRHJyNT80Uilea5Jq VyolCBF2UMShkxNyk1Imx2 zhYhTjavWmG9eiP1JzLXMl YVJjFRUcVqXqheAxp4Iyg5 VcvTGuwIv1g9gfUVJvEOWl hVvmj1tjMNH9XKTnC2D1iK Otb5rxQIbkHJFxkUB0gkph SXwdPVGeopC4kvayMBbnOV MrzQY2ocahLNpbUNKzHkV9 kjyoAVdhHLVrEAW4GVury2 51WKZ2MEwxHabhZCbgGFWb bmNvbnRccGduZGVjXHBsYW luXHBsYWluXGYwXGZzMjRc iSaemUufqH1nFfVnVtDqCU nzZZ3yQQFkR7iaoJMkQUKf VCHvJ0ufHmYkmH4yqSjdIN jrpkEtZVWzaIcbQDAoz3es zm2tJEC3p0AhI42nhBHaOS Oou6KhACW8ICSMKRulu38e Ky8weBeuFBCveYIzcMYshX OnQ0aoz0jsFRL7 GROSS DESCRIPTION (test w3qofWGiSGGbjFDbThImIM code = 3366) UlIKMgp0qkMOArlYMfAtJj MzNcZnRuYmpcdWMxXGRlZm Csq8qxp090aLDgh2uoYACw SxT6kOHaTKUnoYKkS992j6 fka7yhpdHjjJN3SOPgBDA9 CZasujJqamJ2FOjnfCOtIe Y1EAtucgCgWDlpdxQpxsLb Fkh6JERkV617FTT8lHdpm4 bhDMT2XCOfGMNyJbZzAw0d wMWtF923RUMtZNYXBDOchM a3UWDinyOmriWxqDUXa201 H508c1ecREUqoiSdyBzXaf lds1skH881SJSpbCDujxEe LaEqSTBqvDVffYC2IXIhGT 6oobsoLyWdVM5garzpMzFc YG8pczi7KcSiLH2asfsdGg CnVRjtGCEwxxntVVEzx3Hg hwnzXW0oF1Uyc1G4mY9ubY JrGCJcdRQzPqJwDOBapc6b pLRgIYxxr1ZyRAU3erG7uA VvsWEqOLLnUG17Uvaue7Po FtkjHKK6IULspdKmo6Wpb6 jbRdMsqmNnL1xqO8IjJMQe BHDxSNOgSkPcsgGlf0Dbx3 GprNKtuJp8g6vcZNCwMVOy aAdti7rhVCL0AHFuB3F7lC Zxs3fnDWomVQThnQI7gvcz GEjuCFJnnbI0aojkUMmjFC MrsMA3nmcaRAtgXAKxGdR5 bucmFYofQXVvLSY4OAipq6 99WJS3XCluOkpeHDgbGYSe bmNvbnRccGduZGVjXHBsYW luXHBsYWluXGYwXGZzMjRc wYgteDfzgJ9nEfOaVuKvSG tsAJ6iNRZgT1zqxWStYVDf GSWcD5reKuRynR8gyKeqDT fcdlPfQWVsJ1OqjmAyWFot DMLbae5zoKsyRJvzThRvKN Doh9h3iIT8rBTvoNQ5sYSd yDqxBT4glCOhIODkU1Yht4 qsqdOhaG7aXLIxOS0cAMVx r2i4xUfgS23sd20qqoDtsW 3lfFaas4djUcHibmXzRYRd BGS8LJLvDJT9RSPaTOZgyW SlvbEcP4IrHKTwhH1ojPdr biBvZiByZWQtcGluayBtdW Wjf0RdnJqzszTfLVIuHBLt bNtpI6Alb2Kbf9E4iv2jc3 ZjPtPAoLSfx1ZlAcQnIJXj ZxO4uXNuiQUhg9GkBWIly2 TtHMmvOYHrGOnboR0bTXPn ljNiVXQwkX9tWW0yyv7biq cjcyTsx1KkZRDTk4n7kNCn LXOvgFArnkbkCa2hYVjaAG 74GTewOG0pLSQyLvEQcSVa xC2hvVLsjBMhEQ1nUPVrNS Bcb38noIffHTAzYVhunPMm JXKklU1jRG9gXHNdgKHtTG PrCBApSNMlCX1cyviwvw8s VGhlIHNwZWNpbWVuIGlzIH VuewuisAh9PNPnK1Pao17e JTLpnuQgZH88vPZlpIgxa2 OlcSp3zEThTVWkrNObyfYh GDdaxOuoj21gPOIue8DxWC AqN5Tai18npL4iWGHfuILn JUCwTMT9QVvrfO1lDAWbSS AdCEXil3s7bIXtgiUENc6N NQFcAMFdihlkOGFrNQ0sDC UsGBE4TCCijXNckhWzfTAm UE5edjrkoasmXoplT3ebLF KklZHaIBEpnC3tZWCoucTS Vi8ewoExeERxbB== MICROSCOPIC DESCRIPTION i9wluYWlHVJbsPRuMaMwOF (test code = 3371) DcRNYlm0yiPNReyWNzWzYi MzNcZnRuYmpcdWMxXGRlZm Kfa5aab004fANqm0orCKSy QaD3rUHiRFKibDNxB657ST NqGHnyr6lfb6DdOGMyfRHf i9Q6XGTFsqhvyMa2lLuxE9 5gq0O7TulhV2qoMXIpXUjn FBEyFXynbRPoQYU2MLMxOG G9TDcxiyXvekE6XKxfaSGx VgO1KXr8u1czmNokZBCmKR Q3j8vpYXqtzsOuEC8puw4b aPl1k9jawhMvRLXnSDSsuX XFMQQzN1BmgHdvAk8nfNl3 rPerJwypMFB4Vyu7QG8tis 75ons1hRpuVSTovbstRrL2 LDbtAFSgluxzOMl4SPirVF JnbDcyMFxtYXJncjcyMFxt YXJndDcyMFxtYXJnYjcyMF xhLOUdOOT4GYloa494HGC2 NNgrs6zfy0orcBBtCtk0ET LeMzDrBvotHOohb1Rcf7ov HBVngj3bPET3wRVfwYdzc3 Q5zOYiKZScxVZgdaBzLKLl bm92mJTfkEZubVArvu6nig JafHBpvLZlAUW5hXXxisFg BVMhwLZlRMKlPY2zrZKlHX UpdF8hahalTPNaGjMrusro WVInwJevgvKiDs2hhHpePN T7QJglC6xqqZ2yBvT0QZsx I7cgeA8qNJb8ZIapbRR1BN GqqI6iUR9upvgup6gxKbSn RT9eiphux8jvBkVpQH9qph d1e6bxCjSkRP3vxwpis4sf NzIwXGhlYWRlcnkwXGZvb3 NbzcxtRPChj2KmC8TvvCea R06zeMfiN25dQFPnoZfrsN 2uzCgzjQ7rYcIbEkOrMPcw bFxwbGFpblxmMFxmczIwXH BsYWluXGYxXGZzMjAgUGVy Tp4chUChZfakFQCjwTMpyJ == [facility] [id number] 11:15:00Surgical Pathology Report Case: [id number] Authorizing Provider: Joe Joshi Collected: 01/06/2019 1420 MD Amanda [facility]ingLocation[facility] Endoscopy Received: 01/07/2019 0815 Services Pathologist: Sheila Hamilton MD Specimen: Polyp, Colon - Rectosigmoid, TAKEN BY ESD, ON FOAM, EVALUATE MARGINS A. 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 CM - NEGATIVE FOR HIGH-GRADE DYSPLASIA/ MALIGNANCY - MARGINS, FREE OF ADENOMATOUS EPITHELIUM Signing Pathologist Direct Phone Line: [phone] signed by Sheila Hamilton MD on 01/12/2019 at 11:15 [id number] polyp of sigmoid colon Polyp, colon-rectosigmoid, taken by ESD, on foam, evaluate marginsReceived in formalin labeled with the patient's name, accession number and "polyp, colon-rectosigmoid" is a 3.9 x 3.1 x 0.1 cm irregular portion of red-pink mucosa pinned to a piece of styrofoam. The surface of the mucosa displays an ill-defined, pink-maroon, raised Polyp measuring 2.0 x 1.7 x 0.3 cm. The polyp is 0.2 cm from the radial margin and abuts the deep margin. The specimen is serially sectioned and entirely submitted sequentially, one cross section in each cassette, in A1-A22, polyp in A2-A15.Ink code: Blue- radial margin, black-deep margin.CG/ew Performed.POC-Glucose [id number] 11:46:00 Test Item Value Reference Range Interpretation Comments POC-Glucose Meter (test 129 mg/dL 70-110 H : TE STED AT [facility] code = 1538) [address] [place], [address]: Claims Adjudicator/Techni gianluca ID = [id number] for YOANAOLSHEEBA Lab Interpretation (test Abnormal code = 64347-4) [facility] [id number] 11:46:00 Test Item Value Reference Range Interpretation Comments POC-GLUCOSE METER 129 mg/dL 70-110 H : TESTED A T [facility] 6720 (BEAKER) (test code = LUCITA Kidd [facility], 1538) [address]: Claims Adjudicator/Techni gianluca ID = [id number] for SHEEBA BROWN ALPHA FETOPROTEIN (AFP), TUMOR [id number] 12:27:00 Test Item Value Reference Range Interpretation Comments ALPHA-FETOPROTEIN (BEAKER) (test 4.9 ng/mL <10.0 code = 1094) CT, CHEST, WITHOUT [id number] 12:02:00Referring: Dr. Najma Underwood REPORT TECHNIQUE: CT scan of the chest [...] pleural spaces are clear. HEART AND MEDIASTINUM: A right thyroid nodule measures 1.2 cm and is likely clinically insignificant. No further imaging is recommended. No significant mediastinal, hilar, or axillary lymphadenopathy. The left atrium is enlarged. Mild calcification of the left anterior descending coronary artery. SOFT TISSUES AND BONES: Moderate degenerative changes of the glenohumeral joints. UPPER ABDOMEN: The upper abd omen will be better evaluated on the MRI performed earlier today. IMPRESSION: No metastatic diseasein the chest. Signed: Jose D Rivers Verified Date/Time: 11/05/2018 12:02:36 Reading Location:[address] Radiology Reading Room , ABDOMEN, [id number] 11:38:00Referring: Dr. Najma Robledo Abdominal VesselsFINAL REPORT TECHNIQUE: MRI of the abdomen WITHOUT and WITH intravenous contrast. INDICATION: HCC,HCV,CIRRHOSIS. COMPARISON: MR from 07/16/2018. FINDINGS: LOWER THORAX: Unremarkable. LIVER: Nodular, cirrhotic liver. Liver lesions as follow:*Interval chemoembolization of a segment V liver lesion [...] image 29, unchanged. No washout or pseudocapsule formation.*Faint area of arterial phase hyperenhancement in segmentVII measures 1 cm on series 12 image 29, not previously seen. No washout or pseudocapsule formation.*An arterially enhancing lesion in segment V on [...] series 12 image 35 measures 0.6 cm, unchange d. No washout or pseudocapsule formation. BILIARY: Innumerable [...] papillary mucinous neoplasm. 6.Cirrhosis with splenomegaly. Signed: Jose D Rivers MDReport Verified Date/Time: 11/05/2018 11:38:54 Reading Location: [address] Radiology Reading Room -[id number] 10:06:00 Test Item Value Reference Range Interpretation Comments POC-CREATININE 0.7 mg/dL 0.6-1.3 TESTED AT [facility] 6720 ([facility]) (test [facility] [place] code = 1856) [address] POC-EGFR (BEAKER) 84 mL/min/1.73M2 (test code = 1860) HEPATIC FUNCTION [id number] 10:00:00 Test Item Value Reference Range Interpretation Comments TOTAL PROTEIN (BEAKER) (test code = 6.7 gm/dL 6.0-8.3 770) ALBUMIN (BEAKER) (test code = 1145) 3.5 g/dL 3.5-5.0 BILIRUBIN TOTAL (BEAKER) (test code 0.7 mg/dL 0.2-1.2 = 377) BILIRUBIN DIRECT (BEAKER) (test 0.4 mg/dL 0.1-0.5 code = 706) ALKALINE PHOSPHATASE (BEAKER) (test 120 U/L 40-150 code = 346) AST (SGOT) (BEAKER) (test code = 21 U/L 5-34 353) ALT (SGPT) (BEAKER) (test code = 16 U/L 6-55 347) BASIC METABOLIC [id number] 10:00:00 Test Item Value Reference Range Interpretation Comments SODIUM (BEAKER) 139 meq/L 136-145 (test code = 381) POTASSIUM (BEAKER) 4.2 meq/L 3.5-5.1 (test code = 379) CHLORIDE (BEAKER) 104 meq/L 98-107 (test code = 382) CO2 (BEAKER) (test 30 meq/L 22-29 H code = 355) BLOOD UREA NITROGEN 15 mg/dL 7-21 (BEAKER) (test code = 354) CREATININE (BEAKER) 0.79 mg/dL 0.57-1.25 (test code = 358) GLUCOSE RANDOM 131 mg/dL 70-105 H (BEAKER) (test code = 652) CALCIUM (BEAKER) 9.0 mg/dL 8.4-10.2 (test code = 697) EGFR (BEAKER) (test 73 mL/min/1.73 ESTIMA LUCIAN GFR IS code = 1092) sq m NOT ACCURATE CREATININE CLEARANCE IN PREDICTING GLOMERULAR FILTRATION RATE . ESTIMATED GFR I S NOT APPLICABLE FOR DIALYSIS PATIEN TS. PROTHROMBIN [id number] 09:49:00 Test Item Value Reference Range Interpretation Comments PROTIME (BEAKER) (test code = 14.1 seconds 11.9-14.2 759) INR (BEAKER) (test code = 370) 1.2 <=5.9 Effective 08/04/2018: PT Reference Range ChangeNew: 11.9-14.2 Previous: 11.7- 14.7RECOMMENDED COUMADIN/WARFARIN INR THERAPY RANGESSTANDARD DOSE: 2.0-3.0 Includes: PROPHYLAXIS for venous thrombosis, systemic embolization; TREATMENT for venous thrombosis and/or pulmonary embolus.HIGH RISK: Target INR is2.5-3.5 for patients wiht mechanical heart valves.CBC W/PLT COUNT & AUTO [id number] 09:40:00 Test Item Value Reference Range Interpretation Comments WHITE BLOOD CELL COUNT (BEAKER) 3.9 K/ L 3.5-10.5 (test code = 775) RED BLOOD CELL COUNT (BEAKER) 3.98 M/ L 3.93-5.22 (test code = 761) HEMOGLOBIN (BEAKER) (test code = 10.1 GM/DL 11.2-15.7 L 410) HEMATOCRIT (BEAKER) (test code = 33.0 % 34.1-44.9 L 411) MEAN CORPUSCULAR VOLUME (BEAKER) 82.9 fL 79.4-94.8 (test code = 753) MEAN CORPUSCULAR HEMOGLOBIN 25.4 pg 25.6-32.2 L (BEAKER) (test code = 751) MEAN CORPUSCULAR HEMOGLOBIN CONC 30.6 GM/DL 32.2-35.5 L (BEAKER) (test code = 752) RED CELL DISTRIBUTION WIDTH 13.7 % 11.7-14.4 (BEAKER) (test code = 412) PLATELET COUNT (BEAKER) (test code 79 K/CU MM 150-450 L = 756) MEAN PLATELET VOLUME (BEAKER) 10.1 fL 9.4-12.3 (test code = 754) NUCLEATED RED BLOOD CELLS (BEAKER) 0 /100 WBC 0-0 (test code = 413) NEUTROPHILS RELATIVE PERCENT 81 % (BEAKER) (test code = 429) LYMPHOCYTES RELATIVE PERCENT 11 % (BEAKER) (test code = 430) MONOCYTES RELATIVE PERCENT 6 % (BEAKER) (test code = 431) EOSINOPHILS RELATIVE PERCENT 1 % (BEAKER) (test code = 432) BASOPHILS RELATIVE PERCENT 0 % (BEAKER) (test code = 437) NEUTROPHILS ABSOLUTE COUNT 3.19 K/ L 1.56-6.13 (BEAKER) (test code = 670) LYMPHOCYTES ABSOLUTE COUNT 0.44 K/ L 1.18-3.74 L (BEAKER) (test code = 414) MONOCYTES ABSOLUTE COUNT (BEAKER) 0.25 K/ L 0.24-0.36 (test code = 415) EOSINOPHILS ABSOLUTE COUNT 0.02 K/ L 0.04-0.36 L (BEAKER) (test code = 416) BASOPHILS ABSOLUTE COUNT (BEAKER) 0.01 K/ L 0.01-0.08 (test code = 417) IMMATURE GRANULOCYTES-RELATIVE 0 % 0-1 PERCENT (BEAKER) (test code = 2801) ANG, EMBOLIZATION, EXTENSIVE - [id number] 17:43:00Referring: Dr. Najma Domingeuz TACEReason for Exam:->HCC,HCV,CIRRHOSISFINAL REPORT Mesenteric Arteriography and [...] inch guide wire was advanced. A 5 Bhutanese sheath was utilized. A 5 northern irish Alfredo catheter was placed selectively into the celiac axis. A 3 Bhutanese microcatheter was super selectively advanced coaxially into [...] patient tolerated the procedure well without complication. Impression:Successful, uncomplicated transarterial chemoembolization of a peripheral right hepatic lobe lesion segment five performed with conscious sedation. A smallerlesion was described in segment four or five which was not visualized. Signed: Maritza Santana MDReportVerified Date/Time: 08/30/2018 17:43:13 Reading Location: [place] [id number] Angio Body Reading Room REHENSIVE METABOLIC [id number] 11:13:00 Test Item Value Reference Range Interpretation Comments TOTAL PROTEIN 7.2 gm/dL 6.0-8.3 (BEAKER) (test code = 770) ALBUMIN (BEAKER) 3.8 g/dL 3.5-5.0 (test code = 1145) ALKALINE PHOSPHATASE 110 U/L 40-150 (BEAKER) (test code = 346) BILIRUBIN TOTAL 1.0 mg/dL 0.2-1.2 (BEAKER) (test code = 377) SODIUM (BEAKER) (test 135 meq/L 136-145 L code = 381) POTASSIUM (BEAKER) 4.1 meq/L 3.5-5.1 (test code = 379) CHLORIDE (BEAKER) 100 meq/L 98-107 (test code = 382) CO2 (BEAKER) (test 28 meq/L 22-29 code = 355) BLOOD UREA NITROGEN 19 mg/dL 7-21 (BEAKER) (test code = 354) CREATININE (BEAKER) 0.83 mg/dL 0.57-1.25 (test code = 358) GLUCOSE RANDOM 154 mg/dL 70-105 H (BEAKER) (test code = 652) CALCIUM (BEAKER) 9.1 mg/dL 8.4-10.2 (test code = 697) AST (SGOT) (BEAKER) 20 U/L 5-34 (test code = 353) ALT (SGPT) (BEAKER) 14 U/L 6-55 (test code = 347) EGFR (BEAKER) (test 69 mL/min/1.73 ESTIMA LUCIAN GFR IS code = 1092) sq m NOT ACCURATE CREATININE CLEARANCE IN PREDICTING GLOMERULAR FILTRATION RATE . ESTIMATED GFR I S NOT APPLICABLE FOR DIALYSIS PATIEN TS. BILIRUBIN, [id number] 11:13:00 Test Item Value Reference Range Interpretation Comments BILIRUBIN DIRECT (BEAKER) (test 0.4 mg/dL 0.1-0.5 code = 706) [id number] 11:07:00 Test Item Value Reference Range Interpretation Comments PARTIAL THROMBOPLASTIN TIME 32.1 seconds 22.5-36.0 (BEAKER) (test code = 760) PROTHROMBIN [id number] 11:06:00 Test Item Value Reference Range Interpretation Comments PROTIME (BEAKER) (test code = 14.2 seconds 11.9-14.2 759) INR (BEAKER) (test code = 370) 1.2 <=5.9 Effective 08/04/2018: PT Reference Range ChangeNew: 11.9-14.2 Previous: 11.7- 14.7RECOMMENDED COUMADIN/WARFARIN INR THERAPY RANGESSTANDARD DOSE: 2.0-3.0 Includes: PROPHYLAXIS for venous thrombosis, systemic embolization; TREATMENT for venous thrombosis and/or pulmonary embolus.HIGH RISK: Target INR is2.5-3.5 for patients wiht mechanical heart valves.CBC W/PLT COUNT & AUTO [id number] 10:54:00 Test Item Value Reference Range Interpretation Comments WHITE BLOOD CELL COUNT (BEAKER) 4.2 K/ L 3.5-10.5 (test code = 775) RED BLOOD CELL COUNT (BEAKER) 4.06 M/ L 3.93-5.22 (test code = 761) HEMOGLOBIN (BEAKER) (test code = 10.5 GM/DL 11.2-15.7 L 410) HEMATOCRIT (BEAKER) (test code = 33.5 % 34.1-44.9 L 411) MEAN CORPUSCULAR VOLUME (BEAKER) 82.5 fL 79.4-94.8 (test code = 753) MEAN CORPUSCULAR HEMOGLOBIN 25.9 pg 25.6-32.2 (BEAKER) (test code = 751) MEAN CORPUSCULAR HEMOGLOBIN CONC 31.3 GM/DL 32.2-35.5 L (BEAKER) (test code = 752) RED CELL DISTRIBUTION WIDTH 14.5 % 11.7-14.4 H (BEAKER) (test code = 412) PLATELET COUNT (BEAKER) (test 105 K/CU MM 150-450 L code = 756) MEAN PLATELET VOLUME (BEAKER) 10.3 fL 9.4-12.3 (test code = 754) NUCLEATED RED BLOOD CELLS 0 /100 WBC 0-0 (BEAKER) (test code = 413) NEUTROPHILS RELATIVE PERCENT 79 % (BEAKER) (test code = 429) LYMPHOCYTES RELATIVE PERCENT 12 % (BEAKER) (test code = 430) MONOCYTES RELATIVE PERCENT 7 % (BEAKER) (test code = 431) EOSINOPHILS RELATIVE PERCENT 1 % (BEAKER) (test code = 432) BASOPHILS RELATIVE PERCENT 1 % (BEAKER) (test code = 437) NEUTROPHILS ABSOLUTE COUNT 3.32 K/ L 1.56-6.13 (BEAKER) (test code = 670) LYMPHOCYTES ABSOLUTE COUNT 0.49 K/ L 1.18-3.74 L (BEAKER) (test code = 414) MONOCYTES ABSOLUTE COUNT (BEAKER) 0.30 K/ L 0.24-0.36 (test code = 415) EOSINOPHILS ABSOLUTE COUNT 0.03 K/ L 0.04-0.36 L (BEAKER) (test code = 416) BASOPHILS ABSOLUTE COUNT (BEAKER) 0.02 K/ L 0.01-0.08 (test code = 417) IMMATURE GRANULOCYTES-RELATIVE 1 % 0-1 PERCENT (BEAKER) (test code = 2801) MR, ABDOMEN, [id number] 10:23:00Referring: Dr. Najma Robledo Abdominal VesselsFINAL REPORT [...] kidneys, and visualized bowel loops are unremarkable. IMPRESSION:Cirrhosis with two arterial enhancing lesions with washout, one has increased in size since March 2018 the other is stable in size. Both are suspicious for hepatocellular carcinoma. Signed: Rajesh Mancera MDReport Verified Date/Time: 07/16/2018 10:23:16 Reading Location: [facility] [id number] [facility] Consult Reading Room HEPATITIS A ANTIBODY, [id number] 08:32:00 Test Item Value Reference Range Interpretation Comments HEPATITIS A IGM ANTIBODY (BEAKER) Nonreactive Nonreactive (test code = 498) ALPHA FETOPROTEIN (AFP), TUMOR [id number] 08:27:00 Test Item Value Reference Range Interpretation Comments ALPHA-FETOPROTEIN (BEAKER) (test 14.2 ng/mL <10.0 H code = 1094) HEPATITIS A ANTIBODY, [id number] 08:27:00 Test Item Value Reference Range Interpretation Comments HEPATITIS A IGG ANTIBODY (BEAKER) Nonreactive Nonreactive (test code = 2797) HEPATIC FUNCTION [id number] 08:08:00 Test Item Value Reference Range Interpretation Comments TOTAL PROTEIN (BEAKER) (test code = 6.5 gm/dL 6.0-8.3 770) ALBUMIN (BEAKER) (test code = 1145) 3.4 g/dL 3.5-5.0 L BILIRUBIN TOTAL (BEAKER) (test code 0.5 mg/dL 0.2-1.2 = 377) BILIRUBIN DIRECT (BEAKER) (test 0.2 mg/dL 0.1-0.5 code = 706) ALKALINE PHOSPHATASE (BEAKER) (test 113 U/L 40-150 code = 346) AST (SGOT) (BEAKER) (test code = 21 U/L 5-34 353) ALT (SGPT) (BEAKER) (test code = 18 U/L 6-55 347) BASIC METABOLIC [id number] 08:08:00 Test Item Value Reference Range Interpretation Comments SODIUM (BEAKER) 140 meq/L 136-145 (test code = 381) POTASSIUM (BEAKER) 4.4 meq/L 3.5-5.1 (test code = 379) CHLORIDE (BEAKER) 106 meq/L 98-107 (test code = 382) CO2 (BEAKER) (test 27 meq/L 22-29 code = 355) BLOOD UREA NITROGEN 18 mg/dL 7-21 (BEAKER) (test code = 354) CREATININE (BEAKER) 0.76 mg/dL 0.57-1.25 (test code = 358) GLUCOSE RANDOM 153 mg/dL 70-105 H (BEAKER) (test code = 652) CALCIUM (BEAKER) 9.2 mg/dL 8.4-10.2 (test code = 697) EGFR (BEAKER) (test 77 mL/min/1.73 ESTIMA LUCIAN GFR IS code = 1092) sq m NOT ACCURATE CREATININE CLEARANCE IN PREDICTING GLOMERULAR FILTRATION RATE . ESTIMATED GFR I S NOT APPLICABLE FOR DIALYSIS PATIEN TS. PROTHROMBIN [id number] 08:02:00 Test Item Value Reference Range Interpretation Comments PROTIME (BEAKER) (test code = 14.2 seconds 11.7-14.7 759) INR (BEAKER) (test code = 370) 1.1 <=5.9 RECOMMENDED COUMADIN/WARFARIN INR THERAPY RANGESSTANDARD DOSE: 2.0 - 3.0 Includes: PROPHYLAXIS forvenous thrombosis, systemic embolization; TREATMENT for venous thrombosis and/or pulmonary embolus.HIGH RISK: Target INR is 2.5-3.5 for patients with mechanical heart valves.CBC W/PLT COUNT & AUTO DIFFERENTIAL 2018-07-16 08:01:00 Test Item Value Reference Range Interpretation Comments WHITE BLOOD CELL COUNT (BEAKER) 3.6 K/ L 3.5-10.5 (test code = 775) RED BLOOD CELL COUNT (BEAKER) 3.90 M/ L 3.93-5.22 L (test code = 761) HEMOGLOBIN (BEAKER) (test code = 10.2 GM/DL 11.2-15.7 L 410) HEMATOCRIT (BEAKER) (test code = 32.6 % 34.1-44.9 L 411) MEAN CORPUSCULAR VOLUME (BEAKER) 83.6 fL 79.4-94.8 (test code = 753) MEAN CORPUSCULAR HEMOGLOBIN 26.2 pg 25.6-32.2 (BEAKER) (test code = 751) MEAN CORPUSCULAR HEMOGLOBIN CONC 31.3 GM/DL 32.2-35.5 L (BEAKER) (test code = 752) RED CELL DISTRIBUTION WIDTH 12.8 % 11.7-14.4 (BEAKER) (test code = 412) PLATELET COUNT (BEAKER) (test code 85 K/CU MM 150-450 L = 756) MEAN PLATELET VOLUME (BEAKER) 10.3 fL 9.4-12.3 (test code = 754) NUCLEATED RED BLOOD CELLS (BEAKER) 0 /100 WBC 0-0 (test code = 413) NEUTROPHILS RELATIVE PERCENT 81 % (BEAKER) (test code = 429) LYMPHOCYTES RELATIVE PERCENT 10 % (BEAKER) (test code = 430) MONOCYTES RELATIVE PERCENT 8 % (BEAKER) (test code = 431) EOSINOPHILS RELATIVE PERCENT 1 % (BEAKER) (test code = 432) BASOPHILS RELATIVE PERCENT 0 % (BEAKER) (test code = 437) NEUTROPHILS ABSOLUTE COUNT 2.90 K/ L 1.56-6.13 (BEAKER) (test code = 670) LYMPHOCYTES ABSOLUTE COUNT 0.35 K/ L 1.18-3.74 L (BEAKER) (test code = 414) MONOCYTES ABSOLUTE COUNT (BEAKER) 0.28 K/ L 0.24-0.36 (test code = 415) EOSINOPHILS ABSOLUTE COUNT 0.03 K/ L 0.04-0.36 L (BEAKER) (test code = 416) BASOPHILS ABSOLUTE COUNT (BEAKER) 0.01 K/ L 0.01-0.08 (test code = 417) IMMATURE GRANULOCYTES-RELATIVE 0 % 0-1 PERCENT (BEAKER) (test code = 2801) BONE AND/OR JOINT IMAGING, WHOLE [id number] 15:39:00Referring: Dr. Najma BroderickFINAL REPORT PROCEDURE: BONE SCAN, WHOLE BODY CPT CODE: 50093 INDICATION: Hepatocellular carcinoma, preoperative evaluation for liver transplant PROTOCOL: 21.0 mCi of Tc-99m MDP was injected intravenously. Whole body and selected spot images were obtained ap proximately 3 hours later. FINDINGS: Tracer activity is mildly increased in the cervical andlower thoracic spine as well as in the shoulders, hips, knees, and feet and ankles. IMPRESSION: 1. No evidence of bony neoplastic disease.2. 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 Signed: Gerry Hill Verified Date/Time: 06/02/2018 15:39:33 Reading Location: [address] [address] [place], CHEST, WITHOUT CONTRAST 2018-06-02 11:25:00Referring: Dr. Najma Underwood REPORT INDICATION: Cirrhosis and hepatocellular carcinoma. Evaluate formetastatic disease. COMPARISON:None. TECHNIQUE: Chest CT exam WITHOUT intravenous contrast. The examwas performed according to our department dose-optimization protocol, which includes automated exposure control, adjustments of mA and kV according to patient size. Iterative reconstructions are also sometimes employed. FINDINGS:No suspicious pulmonary nodule, pleural effusion, or pleural nodularity de monstrated. No mediastinal or hilar lymphadenopathy. Left atrium [...] No evidence of thoracic metastatic disease. Signed: Rajesh Mancera Verified Date/Time: 06/02/2018 11:25:36 Reading Location: [address] Radiology Reading Room RAD, BONE DENSITY [id number] 10:39:00Referring: Dr. Najma Broderick Reason for Exam:->HCC,HCV,CIRRHOSIS,PRE TRANSPLANT EVALFINAL REPORT INDICATION: Osteoporosis screening.Postmenopausal female. TECHNIQUE: DEXA scan of the lumbar vertebral column and proximal femur. COMPARISON: None. FINDINGS: Lumbar bone density is 1.069 g/cm2, with corresponding T-score of -0.9. Left femoral neck bone density is 0.727 g/cm2, with corresponding T-score of -2.2. Right femoral neck bone density is 0.710 g/cm2, with corresponding T-score of -2.4. IMPRESSION: Osteopenia of both femoral necks, bordering on osteoporosis of the right femoral neck. Bone density of the lumbar vertebral column within normal limits. Signed: Rajesh Mancera MDReport Verified Date/Time: 06/02/2018 10:39:30 Reading Location: [address] Radiology Reading Room [id number] QUANTITATION & [id number] 09:08:00 Test Item Value Reference Range Interpretation Comments [id number]-[id number] (QUEST) (test code = 0333440) A-1 ANTITRYP PHENOTYP (QUEST) (test code = 3826469) ANTI-NUCLEAR ANTIBODY (SHARYN)2018-05-29 10:41:00 Test Item Value Reference Range Interpretation Comments ANTI-NUCLEAR ANTIBODY (SHARYN) (BEAKER) Negative Negative (test code = 418) Test performed by IFA method.Test performed by IFA method.HEPATITIS B PCR, [id number] 07:20:00 Test Item Value Reference Range Interpretation Comments HBV RESULT COMPONENT HBV DNA not detected HBV DNA not detected (BEAKER) (test code = 2701) This test uses a Real-Time Polymerase Chain Reaction (RT-PCR) methodology and was performed using KIKE AmpliPrep/KIKE TaqMan HBV Test, v2.0 ([employer]ec[employer] ([employer]Reportable range for this assay is 20 - 170,000,000 IU per mL (1.30 - 8.23 Log IU/mL).MISCELLANEOUS LAB [id number] 08:56:00 Test Item Value Reference Range Interpretation Comments SCAN RESULT (test code = 7697889) HEMOGLOBIN [id number] 10:40:00 Test Item Value Reference Range Interpretation Comments HEMOGLOBIN A1C (BEAKER) (test code = 9.6 % 4.3-6.1 H 368) [id number] 21:06:00 Test Item Value Reference Range Interpretation Comments T4 TOTAL (BEAKER) (test code = 12.8 ug/dL 4.9-11.7 H 895) [id number] 14:28:00 Test Item Value Reference Range Interpretation Comments RPR SCREEN (BEAKER) (test code = Nonreactive Nonreactive 420) MM, DIGITAL, MAMMO, SCREENING, BILATERAL INCLUDING [id number] 13:45:00 Referring: Dr. Najma Jasmineiagnostic workup per radiologist?->YesReason for Exam:->HCC,HCV,CIRRHOSIS,PRE TRANSPLANT EVALMRN#: [id number] - MM, DIGITAL, MAMMO, SCREENING, BILATERAL INCLUDING [...] year screening mammogram is recommended. Comparison with prior exams is most helpful in determining interval change or stability. If priors are submitted an addendum will be issued. Lilli Lipscomb M.D. ds/:05/26/2018 13:45:53 Normal Exam Mammogram BI-RADS: 2 Benign G0202 RAD, MANDIBLE, MIN 4 [id number] 13:28:00Referring: Dr. Najma Parrish for Exam:->HCC,HCV,CIRRHOSIS,PRE TRANSPLANT EVALFINAL REPORT Mandible dated 05/26/2018 Comment: 4 views of the mandible were s ubmitted for interpretation. Body, angle, and coronoid process of the mandible are intact without fracture. TMJs were obtained bilaterally. No osteolytic lesion or periodontal abscess noted. Impression: Unremarkable mandibular examination. Signed: Su Kern MDReport Verified Date/Time: 05/26/2018 1 3:28:38 Reading Location: [address] Radiology Reading Room FERRITIN 2018-05-26 12:44:00 Test Item Value Reference Range Interpretation Comments FERRITIN (BEAKER) (test code = 361) 20 ng/mL 5-275 HEPATITIS B CORE ANTIBODY, [id number] 11:53:00 Test Item Value Reference Range Interpretation Comments HEPATITIS B CORE TOTAL ANTIBODY Reactive Nonreactive A (BEAKER) (test code = 497) HEPATITIS C [id number] 11:52:00 Test Item Value Reference Range Interpretation Comments HEPATITIS C ANTIBODY (BEAKER) (test Reactive Nonreactive A code = 367) URINALYSIS W/ [id number] 11:39:00 Test Item Value Reference Range Interpretation Comments COLOR (BEAKER) (test code = 470) Yellow CLARITY (BEAKER) (test code = Clear 469) SPECIFIC GRAVITY UA (BEAKER) 1.030 1.001-1.035 (test code = 468) PH UA (BEAKER) (test code = 467) 5.0 5.0-8.0 PROTEIN UA (BEAKER) (test code = Negative Negative 464) GLUCOSE UA (BEAKER) (test code = >1000 mg/dL Negative A 365) KETONES UA (BEAKER) (test code = Negative Negative 371) BILIRUBIN UA (BEAKER) (test code Negative Negative = 462) BLOOD UA (BEAKER) (test code = Negative Negative 461) NITRITE UA (BEAKER) (test code = Negative Negative 465) LEUKOCYTE ESTERASE UA (BEAKER) Negative Negative (test code = 466) UROBILINOGEN UA (BEAKER) (test 0.2 mg/dL 0.2-1.0 code = 463) RBC UA (BEAKER) (test code = 519) < /HPF WBC UA (BEAKER) (test code = 520) < /HPF SQUAMOUS EPITHELIAL (BEAKER) 1 /HPF (test code = 516) SOURCE(BEAKER) (test code = 2795) CYTOMEGALOVIRUS ANTIBODY, [id number] 11:31:00 Test Item Value Reference Range Interpretation Comments CYTOMEGALOVIRUS, IGG (BEAKER) Positive Negative, Equivocal A (test code = 3429) CMV IgG Result Interpretation: </= 0.8 Al Negative 0.9-1.0 Al Equivocal >/=1.1 Al PositiveCYTOMEGALOVIRUS ANTIBODY, [id number] 11:31:00 Test Item Value Reference Range Interpretation Comments CYTOMEGALOVIRUS IGM ANTIBODY Negative Negative, Equivocal (BEAKER) (test code = 3437) CMV IgM Result Interpretation: </= 0.8 Al Negative 0.9-1.0 Al Equivocal >/= 1.1 Al PositiveEBV ANTIBODY, [id number] 11:31:00 Test Item Value Reference Range Interpretation Comments SIMON SUNSHINE VIRAL CAPSID Positive Negative, Equivocal A ANTIGEN IGG (BEAKER) (test code = 3415) Simon Sunshine Viral Capsid Antigen IgG Result Interpretation: </= 0.8 Al Negative 0.9-1.0 Al Equivocal >/= 1.1 Al PositiveEBV ANTIBODY, IGM 2018-05-26 11:31:00 Test Item Value Reference Range Interpretation Comments SIMON SUNSHINE VIRAL CAPSID Negative Negative, Equivocal ANTIGEN IGM (BEAKER) (test code = 3418) Simon Sunshine Viral Capsid Antigen IgM Result Interpretation: </= 0.8 Al Negative 0.9-1.0 Al Equivocal >/= 1.1 Al PositiveHEPATITIS B SURFACE [id number] 10:20:00 Test Item Value Reference Range Interpretation Comments HEPATITIS B SURFACE ANTIBODY < mIU/mL <8.0 (BEAKER) (test code = 647) [id number] 10:05:00 Test Item Value Reference Range Interpretation Comments THYROID STIMULATING HORMONE 0.11 uIU/mL 0.35-4.94 L (BEAKER) (test code = 772) HEPATITIS B SURFACE [id number] 09:45:00 Test Item Value Reference Range Interpretation Comments HEPATITIS B SURFACE ANTIGEN (2) Nonreactive Nonreactive (BEAKER) (test code = 2585) HEPATITIS B CORE ANTIBODY, [id number] 09:45:00 Test Item Value Reference Range Interpretation Comments HEPATITIS B CORE IGM ANTIBODY Nonreactive Nonreactive (BEAKER) (test code = 645) HEPATITIS A ANTIBODY, [id number] 09:42:00 Test Item Value Reference Range Interpretation Comments HEPATITIS A IGG ANTIBODY (BEAKER) Reactive Nonreactive A (test code = 2797) HIV-1 ANTIGEN WITH HIV-1/2 [id number] 09:42:00 Test Item Value Reference Range Interpretation Comments HIV-1 ANTIGEN WITH HIV 1\\T\\2 Nonreactive Nonreactive ANTIBODY (2) (BEAKER) (test code = 2586) VITAMIN D, [id number] 09:41:00 Test Item Value Reference Range Interpretation Comments VITAMIN D 25-OH (BEAKER) (test 24.9 ng/mL 6.6-49.9 code = 2764) Effective 12/17/2016: Reference Range ChangeNew: 6.6-49.9 ng/mL Previous: 13.0-47.8 ng/mLRecommended Vitamin D Target Range: 30.0-40.0 ng/mL CARCINOEMBRYONIC ANTIGEN (CEA)2018-05-26 09:36:00 Test Item Value Reference Range Interpretation Comments CARCINOEMBRYONIC ANTIGEN (BEAKER) 2.7 ng/mL 0.0-5.0 (test code = 685) ALPHA FETOPROTEIN (AFP), TUMOR [id number] 09:36:00 Test Item Value Reference Range Interpretation Comments ALPHA-FETOPROTEIN (BEAKER) (test 15.8 ng/mL <10.0 H code = 1094) HEPATITIS A ANTIBODY, [id number] 09:36:00 Test Item Value Reference Range Interpretation Comments HEPATITIS A IGM ANTIBODY (BEAKER) Nonreactive Nonreactive (test code = 498) URIC [id number] 09:32:00 Test Item Value Reference Range Interpretation Comments URIC ACID (BEAKER) (test code = 5.0 mg/dL 2.6-7.2 773) [id number] 09:32:00 Test Item Value Reference Range Interpretation Comments MAGNESIUM (BEAKER) (test code = 1.9 mg/dL 1.6-2.6 627) [id number] 09:32:00 Test Item Value Reference Range Interpretation Comments PHOSPHORUS (BEAKER) (test code = 3.6 mg/dL 2.3-4.7 604) COMPREHENSIVE METABOLIC [id number] 09:32:00 Test Item Value Reference Range Interpretation Comments TOTAL PROTEIN 7.5 gm/dL 6.0-8.3 (BEAKER) (test code = 770) ALBUMIN (BEAKER) 4.0 g/dL 3.5-5.0 (test code = 1145) ALKALINE PHOSPHATASE 133 U/L 40-150 (BEAKER) (test code = 346) BILIRUBIN TOTAL 0.9 mg/dL 0.2-1.2 (BEAKER) (test code = 377) SODIUM (BEAKER) (test 139 meq/L 136-145 code = 381) POTASSIUM (BEAKER) 3.9 meq/L 3.5-5.1 (test code = 379) CHLORIDE (BEAKER) 103 meq/L 98-107 (test code = 382) CO2 (BEAKER) (test 27 meq/L 22-29 code = 355) BLOOD UREA NITROGEN 17 mg/dL 7-21 (BEAKER) (test code = 354) CREATININE (BEAKER) 0.80 mg/dL 0.57-1.25 (test code = 358) GLUCOSE RANDOM 182 mg/dL 70-105 H (BEAKER) (test code = 652) CALCIUM (BEAKER) 9.8 mg/dL 8.4-10.2 (test code = 697) AST (SGOT) (BEAKER) 22 U/L 5-34 (test code = 353) ALT (SGPT) (BEAKER) 19 U/L 6-55 (test code = 347) EGFR (BEAKER) (test 72 mL/min/1.73 ESTIMA LUCIAN GFR IS code = 1092) sq m NOT ACCURATE CREATININE CLEARANCE IN PREDICTING GLOMERULAR FILTRATION RATE . ESTIMATED GFR I S NOT APPLICABLE FOR DIALYSIS PATIEN TS. LIPID [id number] 09:32:00 Test Item Value Reference Range Interpretation Comments TRIGLYCERIDES (BEAKER) (test code = 69 mg/dL 540) CHOLESTEROL (BEAKER) (test code = 218 mg/dL 631) HDL CHOLESTEROL (BEAKER) (test code 87 mg/dL = 976) LDL CHOLESTEROL CALCULATED (BEAKER) 117 mg/dL (test code = 633) Triglyceride Reference Range: Low Risk <150 Borderline 150-199 High Risk 200-499 Very High Risk >=500Cholesterol Reference Range: Low Risk <200 Borderline 200-239 High Risk >240HDL Cholesterol Reference Range: Low Risk >=60 High Risk <40LDL Cholesterol Reference Range: Optimal <100 Near Optimal 100-129 Borderline 130-159 High 160-189 Very High >=190BILIRUBIN, [id number] 09:32:00 Test Item Value Reference Range Interpretation Comments BILIRUBIN DIRECT (BEAKER) (test 0.4 mg/dL 0.1-0.5 code = 706) GAMMA GLUTAMYL TRANSFERASE (GGT)2018-05-26 09:32:00 Test Item Value Reference Range Interpretation Comments GAMMA GLUTAMYL TRANSFERASE (BEAKER) 59 U/L 9-64 (test code = 364) BLOOD GAS, [id number] 09:27:00 Test Item Value Reference Range Interpretation Comments PH ARTERIAL (BEAKER) (test code = 7.40 7.35-7.45 383) PCO2 ARTERIAL (BEAKER) (test code 45 mmHg 35-45 = 384) PO2 ARTERIAL (BEAKER) (test code = 84 mmHg 80-90 385) O2 SATURATION ARTERIAL (BEAKER) 96.3 % 96.0-97.0 (test code = 386) HCO3 ARTERIAL (BEAKER) (test code 28 mmol/L 21-29 = 388) BASE EXCESS ARTERIAL (BEAKER) 2.3 mmol/L -2.0-3.0 (test code = 387) PATIENT TEMPERATURE (BEAKER) (test 37.0 C code = 1818) FIO2 (BEAKER) (test code = 1819) 100.0 % [id number] 09:17:00 Test Item Value Reference Range Interpretation Comments TRANSFERRIN (BEAKER) (test code = 312 mg/dL 174-382 541) IRON, TIBC, % SAT. (WITHOUT FERRITIN)2018-05-26 09:17:00 Test Item Value Reference Range Interpretation Comments IRON (BEAKER) (test code = 547) 49.0 ug/dL 40.0-160.0 TOTAL IRON BINDING CAPACITY 393 ug/dL 250-450 (BEAKER) (test code = 769) IRON % SATURATION (2) (BEAKER) 12 % 20-55 L (test code = 2590) [id number] 09:14:00 Test Item Value Reference Range Interpretation Comments ETHANOL (BEAKER) (test code = 400) < mg/dL <=10 CBC W/PLT COUNT & AUTO [id number] 09:06:00 Test Item Value Reference Range Interpretation Comments WHITE BLOOD CELL COUNT (BEAKER) 4.3 K/ L 3.5-10.5 (test code = 775) RED BLOOD CELL COUNT (BEAKER) 4.26 M/ L 3.93-5.22 (test code = 761) HEMOGLOBIN (BEAKER) (test code = 12.1 GM/DL 11.2-15.7 410) HEMATOCRIT (BEAKER) (test code = 37.3 % 34.1-44.9 411) MEAN CORPUSCULAR VOLUME (BEAKER) 87.6 fL 79.4-94.8 (test code = 753) MEAN CORPUSCULAR HEMOGLOBIN 28.4 pg 25.6-32.2 (BEAKER) (test code = 751) MEAN CORPUSCULAR HEMOGLOBIN CONC 32.4 GM/DL 32.2-35.5 (BEAKER) (test code = 752) RED CELL DISTRIBUTION WIDTH 12.5 % 11.7-14.4 (BEAKER) (test code = 412) PLATELET COUNT (BEAKER) (test code 97 K/CU MM 150-450 L = 756) MEAN PLATELET VOLUME (BEAKER) 10.6 fL 9.4-12.3 (test code = 754) NUCLEATED RED BLOOD CELLS (BEAKER) 0 /100 WBC 0-0 (test code = 413) NEUTROPHILS RELATIVE PERCENT 82 % (BEAKER) (test code = 429) LYMPHOCYTES RELATIVE PERCENT 10 % (BEAKER) (test code = 430) MONOCYTES RELATIVE PERCENT 7 % (BEAKER) (test code = 431) EOSINOPHILS RELATIVE PERCENT 1 % (BEAKER) (test code = 432) BASOPHILS RELATIVE PERCENT 0 % (BEAKER) (test code = 437) NEUTROPHILS ABSOLUTE COUNT 3.52 K/ L 1.56-6.13 (BEAKER) (test code = 670) LYMPHOCYTES ABSOLUTE COUNT 0.41 K/ L 1.18-3.74 L (BEAKER) (test code = 414) MONOCYTES ABSOLUTE COUNT (BEAKER) 0.30 K/ L 0.24-0.36 (test code = 415) EOSINOPHILS ABSOLUTE COUNT 0.03 K/ L 0.04-0.36 L (BEAKER) (test code = 416) BASOPHILS ABSOLUTE COUNT (BEAKER) 0.01 K/ L 0.01-0.08 (test code = 417) IMMATURE GRANULOCYTES-RELATIVE 1 % 0-1 PERCENT (BEAKER) (test code = 2801) [id number] 09:02:00 Test Item Value Reference Range Interpretation Comments FIBRINOGEN LEVEL (BEAKER) (test 349 mg/dl 225-434 code = 658) [id number] 09:02:00 Test Item Value Reference Range Interpretation Comments PARTIAL THROMBOPLASTIN TIME 30.6 seconds 22.5-36.0 (BEAKER) (test code = 760) CALCIUM, [id number] 08:50:00 Test Item Value Reference Range Interpretation Comments CALCIUM IONIZED (BEAKER) (test 1.15 mmol/L 1.12-1.27 code = 698) PH, BLOOD (BEAKER) (test code = 7.34 1810) TISSUE [id number] 09:42:00Surgical Pathology Report Case: [id number] Authorizing Provider: Dennis Molina MD Collected: 04/07/2018 1033 Ordering Location: [facility] Endoscopy Received: 04/07/2018 1616 Services Pathologist: Sheila Hamilton MD Specimen: Biopsy, Gastric, GASTRIC BX A. STOMACH, RANDOM BIOPSIES: - ANTRAL MUCOSA WITH REACTIVE GASTROPATHY AND MILD CHRONIC INACTIVE GASTRITIS - OXYNTIC MUCOSA WITH NO SIGNIFICANT DIAGNOSTIC ABNORMALITY - NEGATIVE FOR HELICOBACTER PYLORI ORGANISMS BY WARTHIN STARRY STAIN - NEGATIVE FOR INTESTINAL METAPLASIA, DYSPLASIA, MALIGNANCY Signing Pathologist Direct Phone Line: [phone] signed by Sheila Hamilton MD on 04/08/2018 at 9:42 [id number] chronic pancreatitis Gastric biopsy The specimen is received in a formalin-filled container labeled with the patient's information and labeled "gastric biopsy" and consists of multiple fragments of harden-pink soft tissue ranging from 0.1 to 0.3 cm, submitted entirely inA1. CG/ew Performed.The interpretation of this case included the use of immunohistochemistry or special stains. Immunohistochemistry technical testing was performed at [facility],Pathology Laboratory where it was developed and its [...] to perform high complexity clinical laboratory testing.POCT-GLUCOSE [id number] 10:20:00 Test Item Value Reference Range Interpretation Comments POC-GLUCOSE METER 185 mg/dL 70-[address] [facility] 67[address] (NATE) (test code = [place] 1538) [address] HEPATOBILIARY IMAGING W/ [id number] 16:11:00Referring: Dr. Najma Underwood REPORT PROCEDURE: HEPATOBILIARY SCAN with Sincalide Infusion CPT CODE: 68278 INDICATION: Cholelithiasis, worsening abdominal pain PROTOCOL: 5.4 [...] of the extrahepatic biliary duct and the gallbladde r, and the tracer appears appropriately in the small bowel. Following injection of sincalide, serial images show good emptying of gallbladder contents into the small bowel. There is 61% emptying of the gallbladder. IMPRESSION: There is normal gallbladder filling and normal emptying in response tosincalide stimulation. . Signed: Afua Dove MDReport Verified Date/Time: 03/19/2018 16:11:41 Reading Location: [address] Reading Room HEPATITIS C PCR, [id number] 16:20:00 Test Item Value Reference Range Interpretation Comments HCV RESULT COMPONENT HCV RNA not detected HCV RNA not detected (NATE) (test code = 2699) This test uses a Real-Time Polymerase Chain Reaction (RT-PCR) methodology and was performed using KIKE Ampliprep/KIKE TaqMan HCV test kit version 2.0 ([employer]).Reportable range for this assay is 15 - 100,000,000 IU per mL (1.18 - 8.00 Log IU/mL).HEPATITIS B CORE ANTIBODY, TOTAL 2018-03-11 15:21:00 Test Item Value Reference Range Interpretation Comments HEPATITIS B CORE TOTAL ANTIBODY Reactive Nonreactive A (NATE) (test code = 497) MR, ABDOMEN, [id number] 15:10:00Referring: Dr. Najma Robledo Abdominal VesselsFINAL REPORT [...] series image 63). Few scattered arterially enhancing foci, the largest measures 1.3 x 1.1 cm [...] No hydronephrosis or solid mass lesions. PERITONEUM/RETROPERITONEUM: No free fluid.LYMPH NODES: No lymphadenopathy.VESSELS: Portal [...] in the pancreatic tail. Cholelithiasis. Signed: Lucho Caseeport Verified Date/Time: 03/11/2018 15:10:28 Reading Location: [address] Radiology Reading Room TITIS A ANTIBODY, [id number] 14:13:00 Test Item Value Reference Range Interpretation Comments HEPATITIS A IGG ANTIBODY (BEAKER) Reactive Nonreactive A (test code = 2797) HEPATITIS B SURFACE [id number] 14:13:00 Test Item Value Reference Range Interpretation Comments HEPATITIS B SURFACE ANTIBODY < mIU/mL <8.0 (BEAKER) (test code = 647) HEPATITIS B SURFACE [id number] 13:53:00 Test Item Value Reference Range Interpretation Comments HEPATITIS B SURFACE ANTIGEN (2) Nonreactive Nonreactive (BEAKER) (test code = 2585) HEPATIC FUNCTION [id number] 13:39:00 Test Item Value Reference Range Interpretation Comments TOTAL PROTEIN (BEAKER) (test code = 7.1 gm/dL 6.0-8.3 770) ALBUMIN (BEAKER) (test code = 1145) 3.8 g/dL 3.5-5.0 BILIRUBIN TOTAL (BEAKER) (test code 1.1 mg/dL 0.2-1.2 = 377) BILIRUBIN DIRECT (BEAKER) (test 0.5 mg/dL 0.1-0.5 code = 706) ALKALINE PHOSPHATASE (BEAKER) (test 96 U/L 40-150 code = 346) AST (SGOT) (BEAKER) (test code = 20 U/L 5-34 353) ALT (SGPT) (BEAKER) (test code = 14 U/L 6-55 347) BASIC METABOLIC [id number] 13:39:00 Test Item Value Reference Range Interpretation Comments SODIUM (BEAKER) 137 meq/L 136-145 (test code = 381) POTASSIUM (BEAKER) 4.0 meq/L 3.5-5.1 (test code = 379) CHLORIDE (BEAKER) 102 meq/L 98-107 (test code = 382) CO2 (BEAKER) (test 29 meq/L 22-29 code = 355) BLOOD UREA NITROGEN 15 mg/dL 7-21 (BEAKER) (test code = 354) CREATININE (BEAKER) 0.78 mg/dL 0.57-1.25 (test code = 358) GLUCOSE RANDOM 191 mg/dL 70-105 H (BEAKER) (test code = 652) CALCIUM (BEAKER) 9.6 mg/dL 8.4-10.2 (test code = 697) EGFR (BEAKER) (test 74 mL/min/1.73 ESTIMA LUCIAN GFR IS code = 1092) sq m NOT ACCURATE CREATININE CLEARANCE IN PREDICTING GLOMERULAR FILTRATION RATE . ESTIMATED GFR I S NOT APPLICABLE FOR DIALYSIS PATIEN TS. PROTHROMBIN TIME/[id number] 13:15:00 Test Item Value Reference Range Interpretation Comments PROTIME (BEAKER) (test code = 13.7 seconds 11.7-14.7 759) INR (BEAKER) (test code = 370) 1.0 <=5.9 RECOMMENDED COUMADIN/WARFARIN INR THERAPY RANGESSTANDARD DOSE: 2.0 - 3.0 Includes: PROPHYLAXIS forvenous thrombosis, systemic embolization; TREATMENT for venous thrombosis and/or pulmonary embolus.HIGH RISK: Target INR is 2.5-3.5 for patients with mechanical heart valves.[id number] 13:12:00 Test Item Value Reference Range Interpretation Comments POC-CREATININE 0.7 mg/dL 0.6-1.3 TESTED AT [facility] 6720 (BEAKER) (test [place] code = 4325) [address] POC-EGFR (BEAKER) 84 mL/min/1.73M2 (test code = 1860) CBC W/PLT COUNT & AUTO [id number] 13:11:00 Test Item Value Reference Range Interpretation Comments WHITE BLOOD CELL COUNT (BEAKER) 4.6 K/ L 3.5-10.5 (test code = 775) RED BLOOD CELL COUNT (BEAKER) 4.64 M/ L 3.93-5.22 (test code = 761) HEMOGLOBIN (BEAKER) (test code = 13.5 GM/DL 11.2-15.7 410) HEMATOCRIT (BEAKER) (test code = 40.0 % 34.1-44.9 411) MEAN CORPUSCULAR VOLUME (BEAKER) 86.2 fL 79.4-94.8 (test code = 753) MEAN CORPUSCULAR HEMOGLOBIN 29.1 pg 25.6-32.2 (BEAKER) (test code = 751) MEAN CORPUSCULAR HEMOGLOBIN CONC 33.8 GM/DL 32.2-35.5 (BEAKER) (test code = 752) RED CELL DISTRIBUTION WIDTH 12.5 % 11.7-14.4 (BEAKER) (test code = 412) PLATELET COUNT (BEAKER) (test 105 K/CU MM 150-450 L code = 756) MEAN PLATELET VOLUME (BEAKER) 10.6 fL 9.4-12.3 (test code = 754) NUCLEATED RED BLOOD CELLS 0 /100 WBC 0-0 (BEAKER) (test code = 413) NEUTROPHILS RELATIVE PERCENT 76 % (BEAKER) (test code = 429) LYMPHOCYTES RELATIVE PERCENT 16 % (BEAKER) (test code = 430) MONOCYTES RELATIVE PERCENT 6 % (BEAKER) (test code = 431) EOSINOPHILS RELATIVE PERCENT 1 % (BEAKER) (test code = 432) BASOPHILS RELATIVE PERCENT 0 % (BEAKER) (test code = 437) NEUTROPHILS ABSOLUTE COUNT 3.47 K/ L 1.56-6.13 (BEAKER) (test code = 670) LYMPHOCYTES ABSOLUTE COUNT 0.73 K/ L 1.18-3.74 L (BEAKER) (test code = 414) MONOCYTES ABSOLUTE COUNT (BEAKER) 0.29 K/ L 0.24-0.36 (test code = 415) EOSINOPHILS ABSOLUTE COUNT 0.05 K/ L 0.04-0.36 (BEAKER) (test code = 416) BASOPHILS ABSOLUTE COUNT (BEAKER) 0.02 K/ L 0.01-0.08 (test code = 417) IMMATURE GRANULOCYTES-RELATIVE 0 % 0-1 PERCENT (BEAKER) (test code = 2801) URINE [id number] 17:30:00 Test Item Value Reference Range Interpretation Comments CULTURE (BEAKER) (test ESCHERICHIA COLI A > 100,000 col/mL code = 1095) Escherichia col i Amikacin (test code = S 1) Ampicillin + Sulbactam R (test code = 6) Aztreonam (test code = S 32) Cefepime (test code = S 51) Cefoxitin (test code = S 68) Ceftazidime (test code S = 27) Ceftriaxone (test code S = 52) Ertapenem (test code = S 38) Gentamicin (test code S = 18) Levofloxacin (test S code = 22) Meropenem (test code = S 34) Nitrofurantoin (test S code = 23) Piperacillin + R Tazobactam (test code = 29) Tetracycline (test S code = 2) Tobramycin (test code S = 25) Trimethoprim + R Sulfamethoxazole (test code = 47) CULTURE (BEAKER) (test A 10-19 ,000 col/mL code = 1095) Jo glabrat a 10-19,000 col/mL skin floraU/S, ABDOMINAL, [id number] 15:32:00Abdomen limited area? Add comment if clarification is needed.->Gall BladderReason for exam:->RUQ and epigastric painFINAL REPORT TECHNIQUE: Grayscale ultrasound of the right abdomen. INDICATION: 62-year-old woman with right upper quadrant epigastric pain. COMPARISON: None. FINDINGS: MIDLINE VA SCULATURE: The visualized inferior vena cava is patent. Portal vein is patent and measures 0.9 cm indiameter. The maximum visualized aortic diameter is 1.7 cm. LIVER: The liver is normal in size. Nodular liver contour with coarsened echotexture, consistent with cirrhosis. No focal lesions. BILIARY:Gallbladder: Multiple shadowing gallstones. The gallbladder wall is [...] hydronephrosis. No sonographically evident solid mass lesion. IMPRESSION:Cholelithiasis. No specific evidence of acute cholecystitis. Cirrhosis. Signed: Lucho Case MDReport Verified Date/Time: 02/06/2018 15:32:55 Reading Location: [facility] B1 C013Y CT Body Reading Room URINALYSIS W/ [id number] 14:28:00 Test Item Value Reference Range Interpretation Comments COLOR (BEAKER) (test code = 470) Yellow CLARITY (BEAKER) (test code = Hazy 469) SPECIFIC GRAVITY UA (BEAKER) 1.027 1.001-1.035 (test code = 468) PH UA (BEAKER) (test code = 467) 5.5 5.0-8.0 PROTEIN UA (BEAKER) (test code = Negative Negative 464) GLUCOSE UA (BEAKER) (test code = >1000 mg/dL Negative A 365) KETONES UA (BEAKER) (test code = Negative Negative 371) BILIRUBIN UA (BEAKER) (test code Negative Negative = 462) BLOOD UA (BEAKER) (test code = Negative Negative 461) NITRITE UA (BEAKER) (test code = Positive Negative A 465) LEUKOCYTE ESTERASE UA (BEAKER) Large Negative A (test code = 466) UROBILINOGEN UA (BEAKER) (test 0.2 mg/dL 0.2-1.0 code = 463) RBC UA (BEAKER) (test code = 519) 2 /HPF WBC UA (BEAKER) (test code = 520) 167 /HPF BACTERIA (BEAKER) (test code = Few 517) SQUAMOUS EPITHELIAL (BEAKER) < /HPF (test code = 516) YEAST (BEAKER) (test code = 1585) Moderate SOURCE(BEAKER) (test code = 2795) [id number] 13:38:00 Test Item Value Reference Range Interpretation Comments LIPASE (BEAKER) (test code = 749) 22 U/L 8-78 [id number] 13:38:00 Test Item Value Reference Range Interpretation Comments AMYLASE (BEAKER) (test code = 349) 25 U/L 25-125 BASIC METABOLIC [id number] 13:38:00 Test Item Value Reference Range Interpretation Comments SODIUM (BEAKER) 136 meq/L 136-145 (test code = 381) POTASSIUM (BEAKER) 4.6 meq/L 3.5-5.1 (test code = 379) CHLORIDE (BEAKER) 99 meq/L 98-107 (test code = 382) CO2 (BEAKER) (test 27 meq/L 22-29 code = 355) BLOOD UREA NITROGEN 13 mg/dL 7-21 (BEAKER) (test code = 354) CREATININE (BEAKER) 0.76 mg/dL 0.57-1.25 (test code = 358) GLUCOSE RANDOM 177 mg/dL 70-105 H (BEAKER) (test code = 652) CALCIUM (BEAKER) 9.2 mg/dL 8.4-10.2 (test code = 697) EGFR (BEAKER) (test 77 mL/min/1.73 ESTIMA LUCIAN GFR IS code = 1092) sq m NOT ACCURATE CREATININE CLEARANCE IN PREDICTING GLOMERULAR FILTRATION RATE . ESTIMATED GFR I S NOT APPLICABLE FOR DIALYSIS PATIEN TS. HEPATIC FUNCTION [id number] 13:38:00 Test Item Value Reference Range Interpretation Comments TOTAL PROTEIN (BEAKER) (test code = 7.2 gm/dL 6.0-8.3 770) ALBUMIN (BEAKER) (test code = 1145) 3.6 g/dL 3.5-5.0 BILIRUBIN TOTAL (BEAKER) (test code 1.5 mg/dL 0.2-1.2 H = 377) BILIRUBIN DIRECT (BEAKER) (test 0.7 mg/dL 0.1-0.5 H code = 706) ALKALINE PHOSPHATASE (BEAKER) (test 93 U/L 40-150 code = 346) AST (SGOT) (BEAKER) (test code = 19 U/L 5-34 353) ALT (SGPT) (BEAKER) (test code = 12 U/L 6-55 347) CBC W/PLT COUNT & AUTO [id number] 13:09:00 Test Item Value Reference Range Interpretation Comments WHITE BLOOD CELL COUNT (BEAKER) 6.0 K/ L 3.5-10.5 (test code = 775) RED BLOOD CELL COUNT (BEAKER) 4.23 M/ L 3.93-5.22 (test code = 761) HEMOGLOBIN (BEAKER) (test code = 12.7 GM/DL 11.2-15.7 410) HEMATOCRIT (BEAKER) (test code = 37.2 % 34.1-44.9 411) MEAN CORPUSCULAR VOLUME (BEAKER) 87.9 fL 79.4-94.8 (test code = 753) MEAN CORPUSCULAR HEMOGLOBIN 30.0 pg 25.6-32.2 (BEAKER) (test code = 751) MEAN CORPUSCULAR HEMOGLOBIN CONC 34.1 GM/DL 32.2-35.5 (BEAKER) (test code = 752) RED CELL DISTRIBUTION WIDTH 12.6 % 11.7-14.4 (BEAKER) (test code = 412) PLATELET COUNT (BEAKER) (test code 91 K/CU MM 150-450 L = 756) MEAN PLATELET VOLUME (BEAKER) 10.1 fL 9.4-12.3 (test code = 754) NUCLEATED RED BLOOD CELLS (BEAKER) 0 /100 WBC 0-0 (test code = 413) NEUTROPHILS RELATIVE PERCENT 84 % (BEAKER) (test code = 429) LYMPHOCYTES RELATIVE PERCENT 9 % (BEAKER) (test code = 430) MONOCYTES RELATIVE PERCENT 7 % (BEAKER) (test code = 431) EOSINOPHILS RELATIVE PERCENT 1 % (BEAKER) (test code = 432) BASOPHILS RELATIVE PERCENT 0 % (BEAKER) (test code = 437) NEUTROPHILS ABSOLUTE COUNT 5.02 K/ L 1.56-6.13 (BEAKER) (test code = 670) LYMPHOCYTES ABSOLUTE COUNT 0.51 K/ L 1.18-3.74 L (BEAKER) (test code = 414) MONOCYTES ABSOLUTE COUNT (BEAKER) 0.40 K/ L 0.24-0.36 H (test code = 415) EOSINOPHILS ABSOLUTE COUNT 0.03 K/ L 0.04-0.36 L (BEAKER) (test code = 416) BASOPHILS ABSOLUTE COUNT (BEAKER) 0.01 K/ L 0.01-0.08 (test code = 417) IMMATURE GRANULOCYTES-RELATIVE 1 % 0-1 PERCENT (BEAKER) (test code = 7808)
[2019-09-19] MEDS ORDERED: TRAMADOL HCL 50 MG TAB ONE (21:18)
--- NOTE | 2019-09-19 21:56 | RAD REPORT ---
EXAM DESCRIPTION: RAD - Forearm Right - 09/19/2019 9:49 pm CLINICAL HISTORY: PAIN Pain, swelling COMPARISON: No comparisons FINDINGS: No acute fracture or dislocation seen.
--- NOTE | 2019-09-19 21:57 | RAD REPORT ---
EXAM DESCRIPTION: RAD - Hand Right 3 View - 09/19/2019 9:49 pm CLINICAL HISTORY: PAIN Fall, pain and swelling COMPARISON: Knee Right 3 View dated 09/19/2019 FINDINGS: No acute fracture or dislocation seen.
--- NOTE | 2019-09-19 22:00 | RAD REPORT ---
EXAM DESCRIPTION: RAD - Knee Right 3 View - 09/19/2019 9:49 pm CLINICAL HISTORY: PAIN COMPARISON: No comparisons FINDINGS: Arthritic changes are present involving all 3 joint compartments. No acute fracture seen. No dislocation evident. A mild joint effusion is present.
--- NOTE | 2019-09-19 22:39 | EDPHYS ---
Physician Documentation [facility] Name: Veronika Carrillo Age: 63 yrs Sex: Female : 1955 Arrival Date: 09/19/2019 Time: 19:24 Bed 27 Private MD: ED Physician Eyad Hurd HPI: 09/18 22:03 This 63 yrs old Female presents to ER via Ambulatory with complaints of Fall pm1 Injury, Hand Pain, Hand Injury. 22:03 Details of fall: The patient fell from an upright position, while walking. Onset: The pm1 symptoms/episode began/occurred today. Associated injuries: The patient sustained right hand and right knee and right wrist. Severity of symptoms: in the emergency department the symptoms are unchanged. The patient has not experienced similar symptoms in the past. The patient has not recently seen a physician. Patient reports possibly stumbling on her feet and supported her fall with both hands. Patient with pain to right wrist, base of right hand and right knee. No headache, neck pain, LOC.. Historical: - Allergies: 19:42 Sulfa (Sulfonamide Antibiotics); ll1 - PMHx: 19:42 Cirrhosis; Cyst on pancreas; Diabetes - NIDDM; HEP C; liver cancer; Pancreatitis; ll1 Rheumatoid Arthritis; - PSHx: 19:42 ; hand surgery; ll1 - Immunization history:: Flu vaccine is up to date. - Social history:: Smoking status: Patient denies any tobacco usage or history of. Patient/guardian denies using alcohol, street drugs, tobacco products. ROS: 22:03 Constitutional: Negative for fever, chills, and weight loss, Neck: Negative for injury, pm1 pain, and swelling, Cardiovascular: Negative for chest pain, palpitations, and edema, Respiratory: Negative for shortness of breath, cough, wheezing, and pleuritic chest pain, Abdomen/GI: Negative for abdominal pain, nausea, vomiting, diarrhea, and constipation, Back: Negative for injury and pain. 22:03 Skin: Negative for injury, rash, and discoloration, Neuro: Negative for headache, weakness, numbness, tingling, and seizure. 22:03 MS/extremity: Positive for pain, of the right hand and right knee and right wrist. 22:03 All other systems are negative. Exam: 22:03 Constitutional: This is a well developed, well nourished patient who is awake, alert, pm1 and in no acute distress. Head/Face: Normocephalic, atraumatic. Eyes: Pupils equal round and reactive to light, extra-ocular motions intact. Lids and lashes normal. Conjunctiva and sclera are non-icteric and not injected. Cornea within normal limits. Periorbital areas with no swelling, redness, or edema. ENT: Nares patent. No nasal discharge, no septal abnormalities noted. Tympanic membranes are normal and external auditory canals are clear. Oropharynx with no redness, swelling, or masses, exudates, or evidence of obstruction, uvula midline. Mucous membranes moist. Neck: Trachea midline, no thyromegaly or masses palpated, and no cervical lymphadenopathy. Supple, full range of motion without nuchal rigidity, or vertebral point tenderness. No Meningismus. Chest/axilla: Normal chest wall appearance and motion. Nontender with no deformity. No lesions are appreciated. 22:03 Abdomen/GI: Soft, non-tender, with normal bowel sounds. No distension or tympany. No guarding or rebound. No evidence of tenderness throughout. Back: No spinal tenderness. No costovertebral tenderness. Full range of motion. Skin: Warm, dry with normal turgor. Normal color with no rashes, no lesions, and no evidence of cellulitis. 22:03 Cardiovascular: Exam negative for acute changes, Rate: normal, Rhythm: regular, Pulses: no pulse deficits are appreciated. 22:03 Respiratory: Exam negative for acute changes, respiratory distress, shortness of breath. 22:03 Musculoskeletal/extremity: Extremities: grossly normal except: noted in the heel of right hand: ecchymosis, tenderness, There is no evidence of decreased ROM, deformity, noted in the right knee: tenderness, no evidence of decreased ROM, deformity, noted in the right wrist: tenderness, no evidence of decreased ROM, deformity. Vital Signs: 19:40 BP 169 / 64; Pulse 68; Resp 18; Temp 98.0; Pulse Ox 100% ; Pain 8/10; ll1 MDM: 21:02 Patient medically screened. pm1 22:37 Data reviewed: vital signs. Data interpreted: Pulse oximetry: on room air is 100 %. pm1 Interpretation: normal. Counseling: I had a detailed discussion with the patient and/or guardian regarding: the historical points, exam findings, and any diagnostic results supporting the discharge/admit diagnosis, radiology results, the need for outpatient follow up, a orthopedic surgeon, to return to the emergency department if symptoms worsen or persist or if there are any questions or concerns that arise at home. 09/18 21:07 Order name: Hand Right 3 View XRAY; Complete Time: 22:03 pm1 09/18 21:07 Order name: Forearm Right XRAY; Complete Time: 22:03 pm1 09/18 21:07 Order name: Knee Right 3 View XRAY; Complete Time: 22:03 pm1 09/18 22:03 Order name: Wrist Splint; Complete Time: 00:20 pm1 09/18 22:41 Order name: Corby wrap-joint: Right Knee; Complete Time: 00:20 pm1 Administered Medications: 21:19 Drug: traMADol 50 mg Route: PO; vc 22:00 Follow up: Response: No adverse reaction vc 22:40 CANCELLED (Physician Discretion): morphine 4 mg IVP once; RASS on ADMIN: Combtv4, Very pm1 Agttd3, Agttd2, Rstlss1, AlertClm0, Drwsy-1, Lt Sdtn-2, Mod Sdtn-3, Dp Sdtn-4, UnArsble-5 23:10 Drug: morphine 4 mg Route: IM; Site: right deltoid; vc 23:20 Follow up: Response: No adverse reaction vc 23:10 Drug: Ondansetron (Zofran) 4 mg Route: PO; vc 23:20 Follow up: Response: No adverse reaction vc Disposition: 09/19 04:25 Co-signature as Attending Physician, Eyad Hurd MD. [email or web address] Disposition: 09/19/19 22:38 Discharged to Home. Impression: Pain in right wrist, Pain in right hand, Pain in right knee, Fall on same level from slipping, tripping and stumbling. - Condition is Stable. - Discharge Instructions: Fall Prevention in the Home, Wrist Pain, Wrist Splint, Knee Pain, Hand Pain. - Medication Reconciliation Form, Thank You Letter, Antibiotic Education, Prescription Opioid Use form. - Follow up: Emergency Department; When: As needed; Reason: Worsening of condition. Follow up: Private Physician; When: 2 - 3 days; Reason: Recheck today's complaints, Continuance of care, Re-evaluation by your physician. - Problem is new. - Symptoms have improved. Signatures: Dispatcher [employer] EDMS Aniceto Castillo, CRISTIAN DIRECTOR OF ADMISSIONS pm1 Breann Vee RN RN Braulio Arreola RN RN ll1 Eyad Hurd MD MD [email or web address] Corrections: (The following items were deleted from the chart) 09/18 22:40 22:40 morphine 4 mg IVP once; RASS on ADMIN: Combtv4, Very Agttd3, Agttd2, Rstlss1, pm1 AlertClm0, Drwsy-1, Lt Sdtn-2, Mod Sdtn-3, Dp Sdtn-4, UnArsble-5 ordered. pm1 23:28 22:38 09/19/2019 22:38 Discharged to Home. Impression: Pain in right wrist; Pain in vc right hand; Pain in right knee; Fall on same level from slipping, tripping and stumbling. Condition is Stable. Forms are Medication Reconciliation Form, Thank You Letter, Antibiotic Education, Prescription Opioid Use. Follow up: Emergency Department; When: As needed; Reason: Worsening of condition. Follow up: Private Physician; When: 2 - 3 days; Reason: Recheck today's complaints, Continuance of care, Re-evaluation by your physician. Problem is new. Symptoms have improved. pm1
--- NOTE | 2019-09-19 22:39 | ER ---
Nurse's Notes [facility] Name: Veronika Carrillo Age: 63 yrs Sex: Female : 1955 Arrival Date: 09/19/2019 Time: 19:24 Bed 27 Private MD: Diagnosis: Pain in right wrist;Pain in right hand;Pain in right knee;Fall on same level from slipping, tripping and stumbling Presentation: 09/18 19:40 Chief complaint: Patient states: Fell on outstretched hand at 1500 today. Right hand ll1 pain, swelling, and bruising since. No LOC, no blood thinners. States she his left side of face. Has eaten since, no N/V. Coronavirus screen: Proceed with normal triage. Patient denies a cough. Patient denies shortness of breath or difficulty breathing. Patient denies measured and/or subjective temperature greater than 100.4F prior to today's visit. Patient denies travel on a cruise ship or to a country the [facility] currently lists as an affected area. Patient denies contact with known and/or suspected case of COVID-19. Ebola Screen: Patient denies travel to an Ebola-affected area in the 21 days before illness onset. Initial Sepsis Screen: Does the patient meet any 2 criteria? No. Patient's initial sepsis screen is negative. Does the patient have a suspected source of infection? No. Patient's initial sepsis screen is negative. Risk Assessment: Do you want to hurt yourself or someone else? Patient reports no desire to harm self or others. Onset of symptoms was September 19, 2019. 19:40 Method Of Arrival: Ambulatory ll1 19:40 Acuity: ADRIEL 3 ll1 Triage Assessment: 21:00 General: Appears in no apparent distress. uncomfortable, Behavior is calm, cooperative, vc appropriate for age. Pain: Complains of pain in right hand and right knee Pain does not radiate. Pain currently is 9 out of 10 on a pain scale. at worst was 10 out of 10 on a pain scale. Quality of pain is described as sharp, stabbing, squeezing. Historical: - Allergies: 19:42 Sulfa (Sulfonamide Antibiotics); ll1 - PMHx: 19:42 Cirrhosis; Cyst on pancreas; Diabetes - NIDDM; HEP C; liver cancer; Pancreatitis; ll1 Rheumatoid Arthritis; - PSHx: 19:42 ; hand surgery; ll1 - Immunization history:: Flu vaccine is up to date. - Social history:: Smoking status: Patient denies any tobacco usage or history of. Patient/guardian denies using alcohol, street drugs, tobacco products. Screenin:00 Abuse screen: Denies threats or abuse. Nutritional screening: No deficits noted. vc Tuberculosis screening: No symptoms or risk factors identified. Fall Risk None identified. Assessment: 21:00 General: Appears in no apparent distress. uncomfortable, Behavior is calm, cooperative, vc appropriate for age. Neuro: Level of Consciousness is awake, alert, obeys commands, Oriented to person, place, time, situation, Appropriate for age. Cardiovascular: Capillary refill < 3 seconds Patient's skin is warm and dry. Respiratory: Airway is patent Respiratory effort is even, unlabored, Respiratory pattern is regular, symmetrical. GI: No signs and/or symptoms were reported involving the gastrointestinal system. : Derm: Bruising that is dark purple. 22:00 Reassessment: Patient appears in no apparent distress at this time. Patient and/or vc family updated on plan of care and expected duration. Pain level reassessed. Patient is alert, oriented x 3, equal unlabored respirations, skin warm/dry/pink. 23:00 Reassessment: Patient appears in no apparent distress at this time. Patient and/or vc family updated on plan of care and expected duration. Pain level reassessed. Patient is alert, oriented x 3, equal unlabored respirations, skin warm/dry/pink. Vital Signs: 19:40 BP 169 / 64; Pulse 68; Resp 18; Temp 98.0; Pulse Ox 100% ; Pain 8/10; ll1 ED Course: 19:24 Patient arrived in ED. cf2 19:42 Triage completed. ll1 19:42 Arm band placed on Patient notified of wait time. ll1 20:50 Aniceto Castillo NP is PHCP. pm1 20:50 Eyad Hurd MD is Attending Physician. pm1 20:53 Breann Vee RN is Primary Nurse. vc 21:00 Patient has correct armband on for positive identification. Bed in low position. Call vc light in reach. 21:49 Hand Right 3 View XRAY In Process Unspecified. EDMS 21:49 Forearm Right XRAY In Process Unspecified. EDMS 21:49 Knee Right 3 View XRAY In Process Unspecified. EDMS 23:25 No provider procedures requiring assistance completed. Patient did not have IV access vc during this emergency room visit. Administered Medications: 21:19 Drug: traMADol 50 mg Route: PO; vc 22:00 Follow up: Response: No adverse reaction vc 22:40 CANCELLED (Physician Discretion): morphine 4 mg IVP once; RASS on ADMIN: Combtv4, Very pm1 Agttd3, Agttd2, Rstlss1, AlertClm0, Drwsy-1, Lt Sdtn-2, Mod Sdtn-3, Dp Sdtn-4, UnArsble-5 23:10 Drug: morphine 4 mg Route: IM; Site: right deltoid; vc 23:20 Follow up: Response: No adverse reaction vc 23:10 Drug: Ondansetron (Zofran) 4 mg Route: PO; vc 23:20 Follow up: Response: No adverse reaction vc Outcome: 22:38 Discharge ordered by . pm1 23:25 Discharged to home via wheelchair. vc 23:25 Condition: good 23:25 Discharge instructions given to patient, Instructed on discharge instructions, follow up and referral plans. Demonstrated understanding of instructions, follow-up care. 23:28 Patient left the ED. vc Signatures: Dispatcher [employer] EDMS Aniceto Castillo, CRISTIAN CONCIERGE RECEPTIONIST pm1 Francine Rico cf2 Breann Vee RN RN vc Braulio Maxwell RN RN ll1
[2019-09-19] MEDS ORDERED: MORPHINE 4 MG/ML SYR ONE (23:09)
[2019-09-19] MEDS ORDERED: ONDANSETRON 4 MG (ODT) TAB ONE (23:09)
[2019-09-19 23:32] VITALS: BP 169/64; TEMP 98; O2SAT 100
== END 2019-09-19 23:28 | disposition home or self-care (01) ==
LOC: ER 19:21
DX: M25.531 Pain in right wrist (principal); M25.561 Pain in right knee; W01.0XXA Fall on same level from slipping, tripping and stumbling without subsequent striking against object, initial encounter; Y93.01 Activity, walking, marching and hiking; Y92.9 Unspecified place or not applicable; Z88.2 Allergy status to sulfonamides
CPT/HCPCS: 96372; 99283

== ENCOUNTER 2020-01-06 22:05 | Emergency (ER) | payer OTHER ==
--- OUTSIDE RECORDS SUMMARY | 2020-01-06 22:11 | XMS REPORT | Clinical Summary ---
:1955 Author Organization [facility] Address [address] [place] [address] Care Team Providers Name Role Phone Irma Valles Primary Care Provider Francisco Mart MD Primary Care Provider Allergies Active Allergy Reactions Severity Noted Date Comments Sulfa (Sulfonamide Antibiotics) Swelling Medium 4 TONGUE SWELLING Medications Medication Sig Dispensed Refills Start End Status Date Date carvedilol (COREG) Take 3.125 mg by 0 Active 3.125 MG tablet mouth daily . escitalopram Take 20 mg by 0 Act sandi oxalate (LEXAPRO) mouth daily. 20 MG tabletIndications: Chronic hepatitis C without hepatic coma (HCC), Portal hypertension (HCC), Right upper quadrant abdominal pain, Immunity status testing, Chronic pancreatitis, unspecified pancreatitis type (HCC), Other ascites, Calculus of gallbladder without cholecystitis without obstruction, Alcoholic cirrhosis, unspecified whether ascites present (HCC), Cancer screening ursodiol Take 300 mg by 0 Activ e (ACTIGALL) 300 mg mouth daily . capsuleIndications : Chronic hepatitis C without hepatic coma (HCC), Portal hypertension (HCC), Right upper quadrant abdominal pain, Immunity status testing, Chronic pancreatitis, unspecified pancreatitis type (HCC), Other ascites, Calculus of gallbladder without cholecystitis without obstruction, Alcoholic cirrhosis, unspecified whether ascites present (HCC), Cancer screening omeprazole Take 40 mg by 0 Activ e (PRILOSEC) 40 MG mouth daily. capsuleIndications : Chronic hepatitis C without hepatic coma (HCC), Portal hypertension (HCC), Right upper quadrant abdominal pain, Immunity status testing, Chronic pancreatitis, unspecified pancreatitis type (HCC), Other ascites, Calculus of gallbladder without cholecystitis without obstruction, Alcoholic cirrhosis, unspecified whether ascites present (HCC), Cancer screening [id number] Take 1 capsule by 0 Active ylase (ZENPEP) mouth 2 (two) 8 40,000-126,000- times daily . 168,000 unit CpDR colestipol Take 5 g by mouth 0 A ctive (COLESTID) 5 gram as needed (FOR granules ITCHING). empagliflozin Take 10 mg by 0 Ac tive (JARDIANCE) 10 mg mouth daily. tablet levothyroxine Take 137 mcg by 0 Active (SYNTHROID, mouth Every LEVOTHROID) 137 morning on an MCG tablet empty stomach. OXcarbazepine Take 150 mg by mouth 2 (two) times daily 1 tab in AM 0 Active (TRILEPTAL) 150 MG 2 tabs in PM. 0 tablet spironolactone Take 2 tablets 60 tablet 3 Active (ALDACTONE) 100 MG (200 mg total) by 0 021 tabletIndications: mouth daily. Hepatic cirrhosis, unspecified hepatic cirrhosis type, unspecified whether ascites present (HCC), Chronic hepatitis C without hepatic coma (HCC), Other ascites furosemide (LASIX) Take 2 tablets (80 60 tablet 3 Active 40 MG mg total) by mouth 0 021 tabletIndications: daily. Hepatic cirrhosis, unspecified hepatic cirrhosis type, unspecified whether ascites present (HCC), Chronic hepatitis C without hepatic coma (HCC), Other ascites insulin aspart Inject 20 Units 0 Active protamine-insulin subcutaneously aspart (NOVOLOG every morning. MIX 70-30 U-100 INSULN) 100 unit/mL (70-30) Soln injection insulin aspart Inject 14 Units 0 Active protamine-insulin subcutaneously aspart (NOVOLOG every evening. MIX 70/30) 100 unit/mL (70-30) Soln injection melatonin 3 mg Tab Take by mouth 0 Active tabletIndications: nightly. unknown dose cholecalciferol, Take 5,000 Units 0 Active vitamin D3, by mouth daily. (VITAMIN D3 ORAL) Missing or Take 1 tablet by 0 Ac tive Non-Formulary mouth daily. MedicationIndicati ons: FORMULA 303 Missing or Take 1 tablet by 0 Ac tive Non-Formulary mouth 2 (two) MedicationIndicati times daily. ons: Nerve Renew (B1, B12, Alpha Lipoic Acid) traMADoL (ULTRAM) Take 1 tablet (50 30 tablet 0 Active 50 mg mg total) by mouth 0 tabletIndications: as needed for Chronic hepatitis Pain. C without hepatic coma (HCC), Portal hypertension (HCC), Right upper quadrant abdominal pain, Immunity status testing, Chronic pancreatitis, unspecified pancreatitis type (HCC), Other ascites, Calculus of gallbladder without cholecystitis without obstruction, Alcoholic cirrhosis, unspecified whether ascites present (HCC), Cancer screening traMADol (ULTRAM) Take 50 mg by 0 Discontinued 50 mg mouth as needed 020 (Reo rder) tabletIndications: for Pain. Chronic hepatitis C without hepatic coma (HCC), Portal hypertension (HCC), Right upper quadrant abdominal pain, Immunity status testing, Chronic pancreatitis, unspecified pancreatitis type (HCC), Other ascites, Calculus of gallbladder without cholecystitis without obstruction, Alcoholic cirrhosis, unspecified whether ascites present (HCC), Cancer screening gabapentin Take 600 mg by 0 Disc ontinued (NEURONTIN) 600 MG mouth 2 (two) 8 020 tablet times daily . insulin lispro Inject 20 Units 0 Discontinued protamin/lispro subcutaneously 020 (HUMALOG MIX 75-25 daily with SUBQ) breakfast . spironolactone Take 2 tablets 60 tablet 11 (ALDACTONE) 50 MG (100 mg total) by 9 020 tabletIndications: mouth daily. Chronic hepatitis C without hepatic coma (HCC), Other ascites, Portal hypertension (HCC), Pre-transplant evaluation for chronic liver disease, Peripheral edema furosemide (LASIX) Take 1 tablet (40 90 tablet 3 01/05 40 MG mg total) by mouth 9 020 tabletIndications: daily. Chronic hepatitis C without hepatic coma (HCC), Other ascites, Portal hypertension (HCC), Pre-transplant evaluation for chronic liver disease, Peripheral edema insulin lispro Inject 18 Units 0 Discontinued protamin-lispro subcutaneously 020 (HUMALOG 75-25) nightly. 100 unit/mL (75-25) InPn injection topiramate TAKE 1 TABLET BY 0 Di scontinued (TOPAMAX) 50 MG MOUTH TWICE A DAY 9 020 tablet IF TOLERATED furosemide (LASIX) Take 1 tablet (40 60 tablet 3 02/07 Discontinued 40 MG mg total) by mouth 0 020 ( Reorder) tabletIndications: 2 (two) times Hepatic cirrhosis, daily. unspecified hepatic cirrhosis type, unspecified whether ascites present (HCC), Chronic hepatitis C without hepatic coma (HCC), Other ascites spironolactone Take 2 tablets 60 tablet 3 Discontinued (ALDACTONE) 50 MG (100 mg total) by 0 020 (Reorder) tabletIndications: mouth daily. Hepatic cirrhosis, unspecified hepatic cirrhosis type, unspecified whether ascites present (HCC), Chronic hepatitis C without hepatic coma (HCC), Other ascites insulin lispro Inject 14 Units 0 Discontinued protamin-lispro subcutaneously 020 (HUMALOG 75-25) nightly. 100 unit/mL (75-25) InPn injection insulin lispro Inject 20 Units 0 Discontinued protamin-lispro subcutaneously 020 (HUMALOG 75-25) once in morning. 100 unit/mL (75-25) InPn injection gabapentin Take 600 mg by 0 Disc ontinued (NEURONTIN) 600 MG mouth 2 (two) 020 tablet times daily. furosemide (LASIX) Take 2 tablets (80 60 tablet 3 Discontinued 40 MG mg total) by mouth 0 020 ( Reorder) tabletIndications: daily. Hepatic cirrhosis, unspecified hepatic cirrhosis type, unspecified whether ascites present (HCC), Chronic hepatitis C without hepatic coma (HCC), Other ascites spironolactone Take 2 tablets 60 tablet 3 Discontinued (ALDACTONE) 100 MG (200 mg total) by 0 020 (Reorder) tabletIndications: mouth daily. Hepatic cirrhosis, unspecified hepatic cirrhosis type, unspecified whether ascites present (HCC), Chronic hepatitis C without hepatic coma (HCC), Other ascites traMADoL (ULTRAM) Take 1 tablet (50 30 tablet 0 10/07 Discontinued 50 mg mg total) by mouth 0 020 ( Reorder) tabletIndications: as needed for Chronic hepatitis Pain. C without hepatic coma (HCC), Portal hypertension (HCC), Right upper quadrant abdominal pain, Immunity status testing, Chronic pancreatitis, unspecified pancreatitis type (HCC), Other ascites, Calculus of gallbladder without cholecystitis without obstruction, Alcoholic cirrhosis, unspecified whether ascites present (HCC), Cancer screening traMADoL (ULTRAM) Take 1 tablet (50 30 tablet 0 10/08 Discontinued 50 mg mg total) by mouth 0 020 ( Reorder) tabletIndications: as needed for Chronic hepatitis Pain. C without hepatic coma (HCC), Portal hypertension (HCC), Right upper quadrant abdominal pain, Immunity status testing, Chronic pancreatitis, unspecified pancreatitis type (HCC), Other ascites, Calculus of gallbladder without cholecystitis without obstruction, Alcoholic cirrhosis, unspecified whether ascites present (HCC), Cancer screening traMADoL (ULTRAM) Take 1 tablet (50 30 tablet 0 11/07 Discontinued 50 mg mg total) by mouth 0 020 ( Reorder) tabletIndications: as needed for Chronic hepatitis Pain. C without hepatic coma (HCC), Portal hypertension (HCC), Right upper quadrant abdominal pain, Immunity status testing, Chronic pancreatitis, unspecified pancreatitis type (HCC), Other ascites, Calculus of gallbladder without cholecystitis without obstruction, Alcoholic cirrhosis, unspecified whether ascites present (HCC), Cancer screening levoFLOXacin Take 1 tablet (500 4 tablet 0 Discontinued (LEVAQUIN) 500 MG mg total) by mouth 0 020 (Stop Taking at tablet daily for 4 days. Melany delgado) HYDROcodone-acetam Take 1 tablet by 10 tablet 0 11/08 Discontinued inophen (NORCO mouth every 6 0 020 ( Stop Taking at 5-325) 5-325 mg (six) hours as Discharge) per tablet needed for Pain for up to 4 days. Max Daily Amount: [address] 2 patches 30 patch 0 Expi red (LIDODERM) 5 % onto the skin 0 020 patch daily for 30 days Remove & Discard patch within 12 hours or as directed by MD. Active Problems Problem Noted Date Spontaneous bacterial peritonitis 11/24/2019 Peritonitis 11/23/2019 Hepatocellular carcinoma 11/19/2019 Cancer Staging: Clinical: Unsigned Hepatocellular carcinoma 07/28/2018 Type II diabetes mellitus 07/28/2018 Pre-transplant evaluation for chronic liver disease Last Assessment & Plan: She is an acceptable candidate for liver transplant pending further imaging/testing and official review at [facility]. Liver lesion 05/26/2018 Last Assessment & Plan: [...] etiology is chronic pancreatitis. We will get HIDAlicia s can to assess for functional gallbladder disorder. Immunity status testing 03/11/2018 Last Assessment & Plan: Serological tests will be completed to d etermine the presence of immunity to hepatitis A and B. If the patient does n ot have adequate immunity, we would recommend administration of appropriate vaccinatio n as per CDC guidelines by the primary care provider. Chronic pancreatitis 03/11/2018 Overview: Last Assessment & Plan: Chronic pancreatitis secondary [...] Encounters Date Type Specialty Care Team Description 01/06/2020 Hospital Encounter Radiology Peggy Navarrete Liver d preston Craft MD Hepatic cirrhos is, unspecified hepatic cirrhosis type, unspecified whether ascites present (HCC); Hepatocellular carcinoma 01/06/2020 Hospital Encounter Radiology Peggy Navarrete Liver d isease; MD Venancio Hepatic cirrhos is, unspecified hepatic cirrhosis type, unspecified whether ascites present (HCC); Hepatocellular carcinoma 01/06/2020 Hospital Encounter Radiology Peggy Navarrete Other a scites; MD Venancio Hepatocellular carcinoma 01/06/2020 Travel 01/05/2020 Telephone Transplant Hepatology Mercer, Follow -up Joel Madrigal RN 01/05/2020 Orders Only Transplant Hepatology Mercer, Joel Madrigal RN 01/02/2020 Outside Orders Radiology Peggy Navarrete MD 12/30/2019 Hospital Encounter Radiology Brentadecas, Peggy Hepatoc ellular carcinoma ; MD Venancio Other ascites 12/23/2019 Hospital Encounter Radiology Brentchase, Peggy Hepatoc ellular carcinoma ; MD Venancio Other ascites 12/16/2019 Hospital Encounter Radiology Brentchase Peggy Hepatoc ellular carcinoma ; MD Venancio Other ascites 12/15/2019 Orders Only Transplant Hepatology Mercer, Other ascites (Primary Dx); Joel Madrigal RN Hepatocellular carcinoma 12/15/2019 Documentation Transplant Hepatology Boone, Micheyl 12/15/2019 Documentation Central Scheduling Boone, Micheyl 12/15/2019 Telephone Transplant Hepatology [place], Follow -up Joel Madrigal RN 12/09/2019 Hospital Encounter Radiology BrentloganSa casira Hepatoc ellular carcinoma ; MD Venancio Other ascites 12/09/2019 Travel 12/08/2019 Orders Only Transplant Hepatology Mercer, Hepato cellular carcinoma (Primary Dx); Joel Madrigal RN Other ascites 12/05/2019 Orders Only Transplant Hepatology [place], Hepati c cirrhosis, unspecified hepatic cirrhosis type, unspecified whether ascites present (HCC) (Primary Dx); Joel Madrigal RN Liver disease; Hepatocellular carcinoma 12/02/2019 Documentation Transplant Hepatology Boone, Micheyl 12/02/2019 Documentation Transplant Hepatology Boone, Micheyl 11/23/2019 Hospital Encounter General Internal Zindani, Hepat ic cirrhosis, unspecified hepatic cirrhosis type, unspecified whether ascites present (HCC); - Mason Wallis MD Hepatocellular carcinoma (HCC); 11/27/2019 Gilberto, Other ascites; Mrinalakin Bhandari, Peritonitis (HCC) Marcela Recinos MD 11/23/2019 Office Visit Transplant Hepatology Peggy Navarrete Hepa tic cirrhosis, unspecified hepatic cirrhosis type, unspecified whether ascites present (HCC) (Primary Dx); MD Venancio Other ascites; Donndani, Portal hyperten sadiq (HCC); MD Kadi Hepatocellular carcinoma ; Peritonitis (HC C) 11/23/2019 Abstract Transplant Renetta Washington 11/23/2019 Travel 11/23/2019 Telephone Transplant Hepatology Peggy Navarrete Resu lts MD Venancio 11/22/2019 Hospital Encounter Radiology Peggy Navarrete MD 11/22/2019 Orders Only Radiology Praveen, Other ascites; Kenn Chronic hepatit is C without hepatic coma (HCC) 11/22/2019 Orders Only Transplant Hepatology Mercer, Other ascites (Primary Dx); Joel Madrigal RN Chronic hepati tis C without hepatic coma (HCC) 11/21/2019 Documentation Transplant Hepatology Joel Mercer RN 11/18/2019 Anesthesia Event Graves, Shahid-MD Kleber Persaud, Janina Reese MD 11/18/2019 Surgery Virtual, PROCEDURE DONE Surgeon OUTSIDE OR 11/18/2019 Hospital Encounter Oncology Peggy Navarrete Cancer screening; - MD Venancio Chronic hepatitis C without hepatic coma (HCC); 11/19/2019 Zindani, Portal hyperten sadiq (HCC); MD Kadi Right upper kerry drant abdominal pain; Immunity status testing; Chronic pancrea titis, unspecified pancreatitis type (HCC); Other ascites; Calculus of gal lbladder without cholecystitis without obstruction; Alcoholic cirrh osis, unspecified whether ascites present (HCC) 11/18/2019 Orders Only Radiology Praveen, Chronic hepatit is C without hepatic coma (HCC); Maretta Hepatocellular carcinoma 11/17/2019 Hospital Encounter Pre-Admission Testing 11/17/2019 Travel 11/15/2019 Telephone Transplant Hepatology frannie Mercer t call Joel Madrigal RN 11/15/2019 Orders Only Transplant Hepatology Ruslan, Chroni c hepatitis C without hepatic coma (HCC); Joel Madrigal RN Portal hyperte nsion (HCC); Right upper kerry drant abdominal pain; Immunity status testing; Chronic pancrea titis, unspecified pancreatitis type (HCC); Other ascites; Calculus of gal lbladder without cholecystitis without obstruction; Alcoholic cirrh osis, unspecified whether ascites present (HCC); Cancer screenin g 11/15/2019 Orders Only Interventional Joellen Cuellar Pre-op noni joseph Radiology REGGIE Pollack (Primary Dx) 11/15/2019 Outside Orders Central Scheduling Peggy Navarrete Other specified MD Venancio pre-operative examination (Primary Dx) 11/11/2019 Hospital Encounter Radiology Peggy Navarrete Hepatoc ellular carcinoma ; MD Venancio Chronic hepatit is C without hepatic coma (HCC) 11/02/2019 Orders Only Transplant Hepatology Mercer, Chroni c hepatitis C without hepatic coma (HCC) (Primary Dx); Joel Madrigal RN Hepatocellular carcinoma 11/01/2019 Hospital Encounter Radiology Peggy Navarrete Hepatoc ellular carcinoma ; MD Venancio Chronic hepatit is C without hepatic coma (HCC) 10/28/2019 Office Visit Scott French Radiology Kvng MUSA MD 10/28/2019 Travel 10/24/2019 Orders Only Transplant Hepatology Mercer, Chroni c hepatitis C without hepatic coma (HCC); Joel Madrigal RN Portal hyperte nsion (HCC); Right upper kerry drant abdominal pain; Immunity status testing; Chronic pancrea titis, unspecified pancreatitis type (HCC); Other ascites; Calculus of gal lbladder without cholecystitis without obstruction; Alcoholic cirrh osis, unspecified whether ascites present (HCC); Cancer screenin g; Hepatic cirrhos is, unspecified hepatic cirrhosis type, unspecified whether ascites present (HCC) 10/24/2019 Documentation Transplant Hepatology Mary Boone 10/21/2019 Telephone Transplant Hepatology [place]lan, FOLLOW UP CALL Joel Madrigal RN 10/20/2019 Telephone Transplant Hepatology Peggy Navarrete Hepa tic Cancer MD Venancio 10/20/2019 Documentation Transplant Hepatology Mary Boone 10/20/2019 Documentation Transplant Hepatology Mary Boone 10/19/2019 Hospital Encounter Radiology Peggy Navarrete Hepatoc ellular carcinoma ; MD Venancio Chronic hepatit is C without hepatic coma (HCC) 10/19/2019 Orders Only Lab Khaderi, Peggy Hepatocellula r carcinoma ; MD Venancio Chronic hepatit is C without hepatic coma (HCC) 10/19/2019 Office Visit Transplant Hepatology Peggy Navarrete Hepa tocellular carcinoma (Primary Dx); MD Venancio Chronic hepatit is C without hepatic coma (HCC) 10/19/2019 Documentation Transplant Hepatology MercerJoel white RN 10/19/2019 Orders Only Transplant Hepatology [place], Hepati c cirrhosis, unspecified hepatic cirrhosis type, unspecified whether ascites present (HCC); Joel Madrigal RN Chronic hepati tis C without hepatic coma (HCC); Other ascites; Portal hyperten sadiq (HCC); Right upper kerry drant abdominal pain; Immunity status testing; Chronic pancrea titis, unspecified pancreatitis type (HCC); Calculus of gal lbladder without cholecystitis without obstruction; Alcoholic cirrh osis, unspecified whether ascites present (HCC); Cancer screenin g 2019 Documentation Transplant Hepatology Mary Boone 2019 Telephone Transplant Hepatology [place], phone call Joel Madrigal RN 2019 Orders Only Transplant Hepatology [place], Hepato cellular carcinoma (Primary Dx); Joel Madrigal RN Chronic hepati tis C without hepatic coma (HCC); Hepatic cirrhos is, unspecified hepatic cirrhosis type, unspecified whether ascites present (HCC) 10/13/2019 Abstract Transplant Hepatology Yamila Reddy MA 10/11/2019 Documentation Transplant Hepatology MercerJoel white RN 10/07/2019 Orders Only Lab Peggy Navarrete Hepatocellula r carcinoma ; MD Venancio Hepatic cirrhos is, unspecified hepatic cirrhosis type, unspecified whether ascites present (HCC); Other ascites 10/07/2019 Hospital Encounter Radiology Peggy Navarrete Hepatoc ellular carcinoma ; MD Venancio Hepatic cirrhos is, unspecified hepatic cirrhosis type, unspecified whether ascites present (HCC); Other ascites 10/07/2019 Hospital Encounter Radiology Peggy Navarrete Hepatoc ellular carcinoma ; MD Venancio Hepatic cirrhos is, unspecified hepatic cirrhosis type, unspecified whether ascites present (HCC); Other ascites 10/07/2019 Hospital Encounter Radiology Peggy Navarrete MD 10/07/2019 Hospital Encounter Radiology Peggy Navarrete Hepatoc ellular carcinoma ; MD Venancio Hepatic cirrhos is, unspecified hepatic cirrhosis type, unspecified whether ascites present (HCC); Other ascites 10/06/2019 Telephone Transplant Hepatology [place]lan, Follow -up Joel Madrigal RN 09/16/2019 Orders Only Transplant Hepatology Mercer, Hepati c cirrhosis, unspecified hepatic cirrhosis type, unspecified whether ascites present (HCC) (Primary Dx); Joel Madrigal RN Chronic hepati tis C without hepatic coma (HCC); Other ascites 09/09/2019 Refill Hepatology Peggy Navarrete MD 08/12/2019 Telephone Transplant Hepatology [place] 08/11/2019 Hospital Encounter Radiology Peggy [...] hepatic coma (HCC) 07/12/2019 Hospital Encounter Radiology Rosalba Peggy Hepatoc ellular carcinoma ; MD Venancio Hepatic cirrhos is, unspecified hepatic cirrhosis type, unspecified whether ascites present (HCC); Other ascites 07/12/2019 Hospital Encounter Radiology Yeeri, Peggy Hepatoc ellular carcinoma (HCC); MD Venancio Hepatic [...] ascites 06/03/2019 Telephone Transplant Hepatology Mary Boone Appo intment 06/02/2019 Abstract Transplant Hepatology Yamila Reddy MA 05/27/2019 Orders Only Lab Khaderi, Peggy Chronic hepat itis C without hepatic coma (HCC); MD Venancio Hepatocellular carcinoma ; Other ascites 05/27/2019 Hospital Encounter Radiology Khaderi, Peggy Chronic hepatitis C without hepatic coma (HCC); MD Venancio Hepatocellular carcinoma ; Other ascites 05/27/2019 Hospital Encounter Radiology Khaderi, Peggy Chronic hepatitis C without hepatic coma (HCC); MD Venancio Hepatocellular carcinoma ; Other ascites 05/27/2019 Outside Orders Varghese Vallesng 04/15/2019 Hospital Encounter Peggy Navarrete Chronic hepatitis [...] 02/23/2019 Travel 02/22/2019 Orders Only Transplant Hepatology Ruslan, Chroni c hepatitis C without hepatic coma [...] Mary Boone 02/10/2019 Travel 02/10/2019 Outside Orders Varghese Valles 01/28/2019 Refill Transplant Hepatology Peggy Navarrete [employer] [place] hepatitis C without hepatic coma (HCC); MD Venancio Other ascites; Portal hyperten sadiq (HCC); Pre-transplant evaluation for chronic liver disease; Peripheral margie a 01/06/2019 Anesthesia Event Gastroenterology Isiah Whipple MD Ware, Chandra Ann, CRNA 01/06/2019 Surgery Gastroenterology Joe Turpin COLONOSC OPY,SUBMUCO Dyana Patel MD JENY RESECTION 01/06/2019 Hospital Encounter Gastroenterology Joe Turpin MD 01/05/2019 Hospital Encounter Pre-Admission Testing after 01/05/2019 Family History Medical History Relation Name Comments COPD Father Heart disease Father Heart disease Mother Relation Name Status Comments Father Mother Social History Tobacco Use Types Packs/Day Years Used Date Former Smoker Quit: 05/30/19 Smokeless Tobacco: Never Used Alcohol Use Drinks/Week oz/Week Comments No NONE SINCE 2018 Alcohol Habits Answer Date Recorded How often do you have a drink containing alcohol? Never 08/30/2018 How many drinks containing alcohol do you have on a typical Not asked day when you are drinking? How often do you have six or more drinks on one occasion? No t asked Sex Assigned at Date Recorded Female 07/15/2018 3:19 PM CDT Last Filed Vital Signs Vital Sign Reading Time Taken Comments Blood Pressure 129/54 01/06/2020 11:51 AM CDT Pulse 80 01/06/2020 11:51 AM CDT Temperature 36.6 C (97.9 F) 01/06/2020 11:51 AM CDT Respiratory Rate 17 01/06/2020 11:51 AM CDT Oxygen Saturation 100% 01/06/2020 11:51 AM CDT Inhaled Oxygen Concentration - - Weight 84.7 kg (186 lb 11.2 oz) 11/23/2019 2:36 PM CDT Height 162.6 cm (5' 4.02") 11/23/2019 2:36 PM CDT Body Mass Index 32.03 11/23/2019 2:36 PM CDT Plan of Treatment Date Type Specialty Care Team Description 01/13/2020 Appointment Radiology Peggy Navarrete MD [address] [place], [place] [address] 0 [phone] 01/18/2020 Office Visit Transplant Hepatology Moriah Navarrete MD [address] [place], [place] [address] 01/20/2020 Appointment Radiology Peggy Navarrete MD [address] [place], [place] [address] 01/27/2020 Appointment Radiology Peggy Navarrete MD [address] [address] 02/03/2020 Appointment Radiology Peggy Navarrete MD [address] [address] 02/10/2020 Appointment Radiology Peggy Navarrete MD [address] [address] 02/17/2020 Appointment Radiology Peggy Navarrete MD [address] [address] Health Maintenance Due Date Last Done Comments COLON CANCER SCREENING COLONOSCOPY 1955 DIABETIC EYE EXAM 10/19/1963 DIABETIC FOOT EXAM 10/19/1963 HEMOGLOBIN A1C 08/26/2018 05/26/2018 PNEUMOCOCCAL 65+ YRS (1 of 1 - 2018 [id number]) INFLUENZA VACCINE (#1) 2019 URINE MICROALBUMIN 04/29/2020 04/29/2019 BREAST CANCER SCREENING 05/26/2020 05/26/2018, 05/26/2018 Procedures Procedure Name Priority Date/Time Associated Diagnosis Comme nts MR ABDOMEN WITH & Routine 01/06/2020 1:45 Liver disease Results for this WITHOUT IV CONTRAST PM CDT Hepatic cirrhosis, pr ocedure are in unspecified hepatic the resu lts cirrhosis type, section. unspecified whether ascites present (HCC) Hepatocellular carcinoma CT CHEST WITHOUT IV Routine 01/06/2020 12:40 Liver disea se Results for this CONTRAST PM CDT Hepatic cirrhosis, procedure are in unspecified hepatic the resu lts cirrhosis type, section. unspecified whether ascites present (HCC) Hepatocellular carcinoma US PARACENTESIS Routine 01/06/2020 11:20 Other ascites Results for this AM CDT Hepatocellular procedure are in carcinoma the results section. BODY FLUID CELL COUNT Routine 01/06/2020 10:14 Re sults for this WITH DIFFERENTIAL AM CDT procedure are in the results section. US PARACENTESIS Routine 12/30/2019 9:49 Hepatocellular Result s for this AM CDT carcinoma procedure are in Other ascites the results section. BODY FLUID CELL COUNT Routine 12/30/2019 9:13 Re sults for this WITH DIFFERENTIAL AM CDT procedure are in the results section. CBC W/PLT COUNT & AUTO Routine 12/30/2019 7:58 R esults for this DIFFERENTIAL AM CDT procedure are i n the results section. CBC W/PLT COUNT & AUTO Routine 12/30/2019 7:58 R esults for this DIFFERENTIAL AM CDT procedure are i n the results section. APTT Routine 12/30/2019 7:58 Results for this AM CDT procedure are i n the results section. PROTHROMBIN TIME/INR Routine 12/30/2019 7:58 Res ults for this AM CDT procedure are i n the results section. US PARACENTESIS Routine 12/23/2019 9:47 Hepatocellular Result s for this AM CDT carcinoma procedure are in Other ascites the results section. BODY FLUID CELL COUNT Routine 12/23/2019 9:20 Re sults for this WITH DIFFERENTIAL AM CDT procedure are in the results section. US PARACENTESIS Routine 12/16/2019 10:03 Hepatocellular Result s for this AM CDT carcinoma procedure are in Other ascites the results section. BODY FLUID CELL COUNT Routine 12/16/2019 9:49 Re sults for this WITH DIFFERENTIAL AM CDT procedure are in the results section. US PARACENTESIS Routine 12/09/2019 9:34 Hepatocellular Result s for this AM CDT carcinoma procedure are in Other ascites the results section. BODY FLUID CELL COUNT Routine 12/09/2019 9:09 Re sults for this WITH DIFFERENTIAL AM CDT procedure are in the results section. POCT-GLUCOSE METER Routine 11/27/2019 11:51 Resul ts for this AM CDT procedure are i n the results section. POCT-GLUCOSE METER Routine 11/27/2019 7:37 Resul ts for this AM CDT procedure are i n the results section. POCT-GLUCOSE METER Routine 11/26/2019 9:30 Resul ts for this PM CDT procedure are i n the results section. POCT-GLUCOSE METER Routine 11/26/2019 4:14 Resul ts for this PM CDT procedure are i n the results section. POCT-GLUCOSE METER Routine 11/26/2019 10:52 Resul ts for this AM CDT procedure are i n the results section. POCT-GLUCOSE METER Routine 11/26/2019 8:00 Resul ts for this AM CDT procedure are i n the results section. CBC W/PLT COUNT & AUTO Routine 11/26/2019 4:32 R esults for this DIFFERENTIAL AM CDT procedure are i n the results section. PROTHROMBIN TIME/INR Routine 11/26/2019 4:32 Res ults for this AM CDT procedure are i n the results section. CBC W/PLT COUNT & AUTO Routine 11/26/2019 4:32 R esults for this DIFFERENTIAL AM CDT procedure are i n the results section. COMPREHENSIVE Routine 11/26/2019 4:32 Results fo r this METABOLIC PANEL AM CDT procedure ar e in the results section. POCT-GLUCOSE METER Routine 11/25/2019 10:31 Resul ts for this PM CDT procedure are i n the results section. POCT-GLUCOSE METER Routine 11/25/2019 4:38 Resul ts for this PM CDT procedure are i n the results section. POCT-GLUCOSE METER Routine 11/25/2019 11:44 Resul ts for this AM CDT procedure are i n the results section. POCT-GLUCOSE METER Routine 11/25/2019 8:26 Resul ts for this AM CDT procedure are i n the results section. COMPREHENSIVE Routine 11/25/2019 4:52 Results fo r this METABOLIC PANEL AM CDT procedure ar e in the results section. POCT-GLUCOSE METER Routine 11/24/2019 8:38 Resul ts for this PM CDT procedure are i n the results section. POCT-GLUCOSE METER Routine 11/24/2019 5:25 Resul ts for this PM CDT procedure are i n the results section. US PARACENTESIS Routine 11/24/2019 4:37 Results for this PM CDT procedure are i n the results section. BODY FLUID CELL COUNT Routine 11/24/2019 4:28 Re sults for this WITH DIFFERENTIAL PM CDT procedure are in the results section. BODY FLUID CULTURE + Routine 11/24/2019 4:17 Res ults for this GRAM STAIN PM CDT procedure are i n the results section. GLUCOSE PERITONEAL Routine 11/24/2019 4:17 Resul ts for this FLUID PM CDT procedure are i n the results section. PROTHROMBIN TIME/INR Routine 11/24/2019 9:54 Res ults for this AM CDT procedure are i n the results section. SARS-COV2/RT-PCR ([facility] Routine 11/24/2019 9:51 R esults for this & REF LABS) AM CDT procedure are i n the results section. POCT-GLUCOSE METER Routine 11/24/2019 7:36 Resul ts for this AM CDT procedure are i n the results section. COMPREHENSIVE Routine 11/24/2019 6:08 Results fo r this METABOLIC PANEL AM CDT procedure ar e in the results section. POCT-GLUCOSE METER Routine 11/23/2019 11:45 Resul ts for this PM CDT procedure are i n the results section. POCT-GLUCOSE METER Routine 11/23/2019 8:13 Resul ts for this PM CDT procedure are i n the results section. URINALYSIS W/ REFLEX Routine 11/23/2019 4:24 Res ults for this URINE CULTURE PM CDT procedure are in the results section. CBC W/PLT COUNT & AUTO Routine 11/23/2019 3:55 R esults for this DIFFERENTIAL PM CDT procedure are i n the results section. CBC W/PLT COUNT & AUTO Routine 11/23/2019 3:55 R esults for this DIFFERENTIAL PM CDT procedure are i n the results section. COMPREHENSIVE Routine 11/23/2019 3:55 Results fo r this METABOLIC PANEL PM CDT procedure ar e in the results section. BLOOD CULTURE Routine 11/23/2019 3:54 Results fo r this PM CDT procedure are i n the results section. BODY FLUID CULTURE + Routine 11/22/2019 5:45 Res ults for this GRAM STAIN PM CDT procedure are i n the results section. BODY FLUID CELL COUNT Routine 11/22/2019 5:45 Re sults for this WITH DIFFERENTIAL PM CDT procedure are in the results section. US PARACENTESIS Routine 11/22/2019 5:30 Other ascites Results for this PM CDT Chronic hepatitis C procedur e are in without hepatic coma the res ults (HCC) section. POCT-GLUCOSE METER Routine 11/19/2019 4:44 Resul ts for this PM CDT procedure are i n the results section. POCT-GLUCOSE METER Routine 11/19/2019 11:14 Resul ts for this AM CDT procedure are i n the results section. POCT-GLUCOSE METER Routine 11/19/2019 7:44 Resul ts for this AM CDT procedure are i n the results section. COMPREHENSIVE Routine 11/19/2019 4:37 Results fo r this METABOLIC PANEL AM CDT procedure ar e in the results section. CBC (HEMOGRAM ONLY) Routine 11/19/2019 4:37 Resu lts for this AM CDT procedure are i n the results section. POCT-GLUCOSE METER Routine 11/18/2019 10:35 Resul ts for this PM CDT procedure are i n the results section. POCT-GLUCOSE METER Routine 11/18/2019 6:02 Resul ts for this PM CDT procedure are i n the results section. POCT-GLUCOSE METER Routine 11/18/2019 11:23 Resul ts for this AM CDT procedure are i n the results section. CT RFA TUMOR ABLATION Routine 11/18/2019 11:01 Chronic hepatit is C Results for this AM CDT without hepatic coma procedu re are in (HCC) the results Hepatocellular section. carcinoma US UNSPECIFIC GUIDANCE Routine 11/18/2019 11:00 R esults for this INTERVENTIONAL AM CDT procedure are in the results section. PROCEDURE DONE OUTSIDE 11/18/2019 8:00 HCC (hepatocel lular OR AM CDT carcinoma) (HCC) CBC W/PLT COUNT & AUTO Routine 11/18/2019 7:27 R esults for this DIFFERENTIAL AM CDT procedure are i n the results section. BASIC METABOLIC PANEL Routine 11/18/2019 7:27 Re sults for this (7) AM CDT procedure are i n the results section. APTT Routine 11/18/2019 7:27 Results for this AM CDT procedure are i n the results section. PROTHROMBIN TIME/INR Routine 11/18/2019 7:27 Res ults for this AM CDT procedure are i n the results section. CBC W/PLT COUNT & AUTO Routine 11/18/2019 7:27 R esults for this DIFFERENTIAL AM CDT procedure are i n the results section. ECG 12-LEAD Routine 11/18/2019 6:58 AM CDT Procedure Note - Interface, External Ris In - 11/18/2019 7:02 AM CDT Ventricular Rate 77 BPM Atrial Rate 77 BPM P-R Interval 154 ms QRS Duration 92 ms Q-T Interval 416 ms QTC Calculation(Bazett) 470 ms P Twain 80 degrees R Twain 78 degrees T Twain 45 degrees Normal sinus rhythm Possible Anterior infarct , age undetermined Abnormal ECG When compared with ECG of 12:50, No significant change was fo und ECG 12-LEAD Routine 11/18/2019 6:58 Results for this AM CDT procedure are i n the results section. SARS-COV2/RT-PCR Routine 11/15/2019 10:04 Other specified Resu lts for this ([facility] & REF LABS) AM CDT pre-operative procedure are in examination the results section. US PARACENTESIS Routine 11/11/2019 9:35 Hepatocellular Result s for this AM CDT carcinoma procedure are in Chronic hepatitis C the resu lts without hepatic coma section . (HCC) BODY FLUID CELL Routine 11/11/2019 8:44 Results for this COUNT WITH AM CDT procedure are i n DIFFERENTIAL the results section. CYTOLOGY AP Routine 11/11/2019 8:21 Results for this AM CDT procedure are i n the results section. US PARACENTESIS Routine 11/01/2019 9:45 Hepatocellular Result s for this AM CDT carcinoma procedure are in Chronic hepatitis C the resu lts without hepatic coma section . (HCC) BODY FLUID CELL Routine 11/01/2019 9:41 Results for this COUNT WITH AM CDT procedure are i n DIFFERENTIAL the results section. BODY FLUID CELL Routine 10/19/2019 4:13 Results for this COUNT WITH PM CDT procedure are i n DIFFERENTIAL the results section. US PARACENTESIS Routine 10/19/2019 3:51 Hepatocellular Result s for this PM CDT carcinoma procedure are in Chronic hepatitis C the resu lts without hepatic coma section . (HCC) CBC W/PLT COUNT & Routine 10/19/2019 12:04 Hepatocellular Resu lts for this AUTO DIFFERENTIAL PM CDT carcinoma procedure are in Chronic hepatitis C the resu lts without hepatic coma section . (HCC) PT/APTT Routine 10/19/2019 12:04 Hepatocellular Results f or this PM CDT carcinoma procedure are in Chronic hepatitis C the resu lts without hepatic coma section . (HCC) CBC W/PLT COUNT & Routine 10/19/2019 12:04 Hepatocellular Resu lts for this AUTO DIFFERENTIAL PM CDT carcinoma procedure are in Chronic hepatitis C the resu lts without hepatic coma section . (HCC) NM BONE SCAN WHOLE Routine 10/07/2019 1:53 Hepatocellular Res ults for this BODY PM CDT carcinoma procedure are in Hepatic cirrhosis, the resul ts unspecified hepatic section. cirrhosis type, unspecified whether ascites present (HCC) Other ascites CBC W/PLT COUNT & Routine 10/07/2019 12:17 Hepatocellular Resu lts for this AUTO DIFFERENTIAL PM CDT carcinoma procedure are in Hepatic cirrhosis, the resul ts unspecified hepatic section. cirrhosis type, unspecified whether ascites present (HCC) Other ascites HEPATIC FUNCTION Routine 10/07/2019 12:17 Hepatocellular Resul ts for this PANEL PM CDT carcinoma procedure are in Hepatic cirrhosis, the resul ts unspecified hepatic section. cirrhosis type, unspecified whether ascites present (HCC) Other ascites CBC W/PLT COUNT & Routine 10/07/2019 12:17 Hepatocellular Resu lts for this AUTO DIFFERENTIAL PM CDT carcinoma procedure are in Hepatic cirrhosis, the resul ts unspecified hepatic section. cirrhosis type, unspecified whether ascites present (HCC) Other ascites BASIC METABOLIC Routine 10/07/2019 12:17 Hepatocellular Result s for this PANEL (7) PM CDT carcinoma procedure are in Hepatic cirrhosis, the resul ts unspecified hepatic section. cirrhosis type, unspecified whether ascites present (HCC) Other ascites ALPHA FETOPROTEIN Routine 10/07/2019 12:17 Hepatocellular Resu lts for this (AFP), TUMOR MARKER PM CDT carcinoma procedure are in Hepatic cirrhosis, the resul ts unspecified hepatic section. cirrhosis type, unspecified whether ascites present (HCC) Other ascites MR ABDOMEN WITH & Routine 10/07/2019 11:35 Hepatocellular Resu lts for this WITHOUT IV CONTRAST AM CDT carcinoma procedure are in Hepatic cirrhosis, the resul ts unspecified hepatic section. cirrhosis type, unspecified whether ascites present (HCC) Other ascites CT CHEST WITHOUT IV Routine 10/07/2019 10:47 Hepatocellular Re sults for this CONTRAST AM CDT carcinoma procedure are in Hepatic cirrhosis, the resul ts unspecified hepatic section. cirrhosis type, unspecified whether ascites present (HCC) Other ascites NM TUMOR Routine 08/11/2019 3:37 Results for this LOCALIZATION SPECT PM CDT procedure are in the results section. NM Y90 MICROSPHERES Routine [...] C without hepatic coma (HCC) NM TUMOR Routine 08/11/2019 12:40 Results for this LOCALIZATION PM CDT procedure are i n MULTIPLE the results section. IR EMBOLIZATION Routine 08/11/2019 [...] are in the results section. NM TUMOR Routine 07/12/2019 5:46 Results for this LOCALIZATION SPECT PM CDT procedure are in the results section. IR VISCERAL Routine 07/12/2019 [...] Hepatocellular section. carcinoma Other ascites BASIC METABOLIC Routine 05/27/2019 11:23 Chronic hepatitis C R esults for this PANEL (7) AM CDT without hepatic coma procedu [...] n the results section. CT ABDOMEN WITHOUT Routine 04/15/2019 1:46 Resul ts for this IV CONTRAST PM [employer] procedure are i n the results section. IR EMBOLIZATION Routine 04/15/2019 1:21 Chronic hepatitis C R esults for this ARTERIAL PM [employer] without hepatic coma procedu re are in (HCC) the results Hepatocellular section. carcinoma Other ascites INSERT PERIPHERAL IV Routine 04/15/2019 1:11 Res ults for this PM [employer] procedure are i n the results section. CBC W/PLT COUNT & Routine 04/15/2019 8:45 Result s for this AUTO DIFFERENTIAL AM [employer] procedure are in the results section. COMPREHENSIVE Routine 04/15/2019 8:45 Results fo r this METABOLIC PANEL AM [employer] procedure ar e in the results section. CBC W/PLT COUNT & Routine 04/15/2019 8:45 Result s for this AUTO DIFFERENTIAL AM [employer] procedure are in the results section. APTT Routine 04/15/2019 8:45 Results for this AM [employer] procedure are i n the results section. PROTHROMBIN TIME/INR Routine 04/15/2019 8:45 Res ults for this AM [employer] procedure are i n the results section. CT CHEST WITHOUT IV Routine 02/23/2019 11:45 Hepatocellular Re sults for this CONTRAST AM [employer] carcinoma procedure are in Chronic hepatitis C the resu lts without hepatic coma section . (HCC) NM BONE SCAN WHOLE Routine 02/11/2019 2:11 Hepatocellular Res ults for this BODY PM [employer] carcinoma procedure are in Chronic hepatitis C the resu lts without hepatic coma section . (HCC) MR ABDOMEN WITH & Routine 02/11/2019 11:42 Hepatocellular Resu lts for this WITHOUT IV CONTRAST AM [employer] carcinoma procedure are in Chronic hepatitis C the resu lts without hepatic coma section . (HCC) POCT-CREATININE Routine 02/11/2019 10:51 Results for this AM [employer] procedure are i n the results section. CBC W/PLT COUNT & Routine 02/11/2019 10:25 Hepatocellular Resu lts for this AUTO DIFFERENTIAL AM [employer] carcinoma procedure are in Chronic hepatitis C the resu lts without hepatic coma section . (HCC) PROTHROMBIN TIME/INR Routine 02/11/2019 10:25 Hepatocellular R esults for this AM [employer] carcinoma procedure are in Chronic hepatitis C the resu lts without hepatic coma section . (HCC) HEPATIC FUNCTION Routine 02/11/2019 10:25 Hepatocellular Resul ts for this PANEL AM [employer] carcinoma procedure are in Chronic hepatitis C the resu lts without hepatic coma section . (HCC) CBC W/PLT COUNT & Routine 02/11/2019 10:25 Hepatocellular Resu lts for this AUTO DIFFERENTIAL AM [employer] carcinoma procedure are in Chronic hepatitis C the resu lts without hepatic coma section . (HCC) BASIC METABOLIC Routine 02/11/2019 10:25 Hepatocellular Result s for this PANEL (7) AM [employer] carcinoma procedure are in Chronic hepatitis C the resu lts without hepatic coma section . (HCC) ALPHA FETOPROTEIN Routine 02/11/2019 10:25 Hepatocellular Resu lts for this (AFP), TUMOR MARKER AM [employer] carcinoma procedure are in Chronic hepatitis C the resu lts without hepatic coma section . (HCC) REPORT OF PROCEDURE 01/06/2019 6:10 - ENDOSCOPY URL PM CDT TISSUE EXAM AP Routine 01/06/2019 2:20 Results for this PM CDT procedure are i n the results section. COLONOSCOPY,SUBMUCOS 01/06/2019 1:45 Adenomatous poly p of AL INJECTION PM CDT sigmoid colon COLONOSCOPY,SUBMUCOS 01/06/2019 1:45 Adenomatous poly p of AL RESECTION PM CDT sigmoid colon POCT-GLUCOSE METER Routine 01/06/2019 11:35 Resul ts for this AM CDT procedure are i n the results section. after 01/05/2019 Results MR abdomen without & with IV contrast (01/06/2020 1:45 PM CDT)Only the most recent of4 resultswithin the time period is included. Specimen Narrative Performed At FINAL REPORT [facility] TECHNIQUE: MRI of the abdomen WITHOUT an d WITH intravenous contrast. INDICATION: Liver lesion, > 1cm, US nond iagnostic. COMPARISON: MRIs dating back to 9. FINDINGS: LOWER THORAX: Unremarkable. LIVER: Nodular, cirrhotic liver. Prior r adial embolization of the right hepatic lobe with signs of fibrosi s in the right hepatic lobe with relative sparing of segments V and . A majority of the disease in the right hepatic lobe has resolved. Specifically, the previous is seen nodular area of hyperenhancement in segment VII which measure 1.5 cm has resolved as has the previous is seen hepatocellular carcinoma in segment V (axial arterial p hase image 54) Additional areas of treatment and/or res idual are as follows: *A focus of arterial phase hyperenhancem ent that is nodular in segment VIII measures 0.5 cm on axial ar terial phase image 27 and washes out, consistent with residual briseyda or, previously 1.2 cm. *Recent ablation of the segment IVb tumo r without residual disease. LR-TR nonviable. *A focus of arterial phase hyperenhancem ent, washout, and pseudocapsule formation in segment III m easures 1.3 cm on axial delayed phase image 48, unchanged. LI-RA DS 5, OPTN 5. There is an area of ablation superior to this tumor. *A focus of arterial phase hyperenhancem ent without washout or pseudocapsule formation measures 1 cm on axial arterial phase image 73, previously 0.4 cm. LI-RADS 4 *An area of washout without arterial pha se hyperenhancement in segment V measures 0.7 cm on coronal pos tcontrast image 84. This is new. BILIARY: Multiple stones layer in the ga llbladder. No biliary ductal dilatation or filling defect. SPLEEN: 16 cm splenomegaly. PANCREAS: No focal masses or ductal dila tation. ADRENALS: No adrenal nodules. KIDNEYS/URETERS: No hydronephrosis or so lid mass lesions. PERITONEUM/RETROPERITONEUM: No free flui d. LYMPH NODES: No lymphadenopathy. VESSELS: Conventional hepatic arterial a natomy. The main portal vein is patent and measures 1.4 cm in diamete r. Retroaortic left renal vein. GI TRACT: No distention or wall thickeni ng. BONES AND SOFT TISSUES: Mild compression deformity of superior endplate of L1. This enhances on postcon trast imaging, likely acute IMPRESSION: 1. Interval improvement of hepatocellu lar carcinoma after radio embolization and ablations as follow: - LR-TR viable disease in segment VIII w hich measures 0.5 cm, previously 1.2 cm. - LI-RADS 5, OPTN 5 disease in segment I II measures 1.3 cm, unchanged. This is immediately inferior to an ablation bed. - Interval ablation of a segment IVb hep atocellular carcinoma without residual or recurrent disease. LR-TR non viable - An arterially enhancing focus in segme nt V measures 1 cm, previously 0.4 cm. LI-RADS 4 -A new area of washout in segment V rodrigo ures 0.7 cm. LI-RADS 3 2. Cirrhosis with sequelae of portal hyp ertension including small volume ascites and splenomegaly. 3. Cholelithiasis without acute cholecys titis. 4. Mild, acute compression fracture of t he superior endplate of L1. Signed: Jose D Rivers MD Report Verified Date/Time: 01/06/2020 15:37:27 Procedure Note Interface, External Ris In - 01/06/2020 3:39 PM CDT FINAL REPORT TECHNIQUE: MRI of the abdomen WITHOUT an d WITH intravenous contrast. INDICATION: Liver lesion, > 1cm, US nond iagnostic. COMPARISON: MRIs dating back to 9. FINDINGS: LOWER THORAX: Unremarkable. LIVER: Nodular, cirrhotic liver. Prior r adial embolization of the right hepatic lobe with signs of fibrosi s in the right hepatic lobe with relative sparing of segments V and . A majority of the disease in the right hepatic lobe has resolved. Specifically, the previous is seen nodular area of hyperenhancement in segment VII which measure 1.5 cm has resolved as has the previous is seen hepatocellular carcinoma in segment V (axial arterial p hase image 54) Additional areas of treatment and/or res idual are as follows: *A focus of arterial phase hyperenhancem ent that is nodular in segment VIII measures 0.5 cm on axial ar terial phase image 27 and washes out, consistent with residual briseyda or, previously 1.2 cm. *Recent ablation of the segment IVb tumo r without residual disease. LR-TR nonviable. *A focus of arterial phase hyperenhancem ent, washout, and pseudocapsule formation in segment III m easures 1.3 cm on axial delayed phase image 48, unchanged. LI-RA DS 5, OPTN 5. There is an area of ablation superior to this tumor. *A focus of arterial phase hyperenhancem ent without washout or pseudocapsule formation measures 1 cm on axial arterial phase image 73, previously 0.4 cm. LI-RADS 4 *An area of washout without arterial pha se hyperenhancement in segment V measures 0.7 cm on coronal pos tcontrast image 84. This is new. BILIARY: Multiple stones layer in the ga llbladder. No biliary ductal dilatation or filling defect. SPLEEN: 16 cm splenomegaly. PANCREAS: No focal masses or ductal dila tation. ADRENALS: No adrenal nodules. KIDNEYS/URETERS: No hydronephrosis or so lid mass lesions. PERITONEUM/RETROPERITONEUM: No free flui d. LYMPH NODES: No lymphadenopathy. VESSELS: Conventional hepatic arterial a natomy. The main portal vein is patent and measures 1.4 cm in diamete r. Retroaortic left renal vein. GI TRACT: No distention or wall thickeni ng. BONES AND SOFT TISSUES: Mild compression deformity of superior endplate of L1. This enhances on postcon trast imaging, likely acute IMPRESSION: 1. Interval improvement of hepatocellul ar carcinoma after radio embolization and ablations as follow: - LR-TR viable disease in segment VIII w hich measures 0.5 cm, previously 1.2 cm. - LI-RADS 5, OPTN 5 disease in segment I II measures 1.3 cm, unchanged. This is immediately inferior to an ablation bed. - Interval ablation of a segment IVb hep atocellular carcinoma without residual or recurrent disease. LR-TR non viable - An arterially enhancing focus in segme nt V measures 1 cm, previously 0.4 cm. LI-RADS 4 -A new area of washout in segment V rodrigo ures 0.7 cm. LI-RADS 3 2. Cirrhosis with sequelae of portal hyp ertension including small volume ascites and splenomegaly. 3. Cholelithiasis without acute cholecys titis. 4. Mild, acute compression fracture of t he superior endplate of L1. Signed: Jose D Rivers MD Report Verified Date/Time: 01/06/2020 1 5:37:27 Performing Organization Address City/State/Zipcode Phone Number [facility] CT chest without IV contrast (01/06/2020 12:40 PM CDT)Only the most recent of4 resultswithin the time period is included. Specimen Narrative Performed At FINAL REPORT [facility] TECHNIQUE: CT scan of the chest WITHOUT intravenous contrast. Dose modulation, iterative reconstruction, an d/or weight-based adjustment of the mA/kV was utilized to reduce the radiation dose to as low as reasonably achievable. INDICATION: Unlisted Reason for Exam. COMPARISON: Chest CT from 10/07/2019. FINDINGS: ABSENCE OF INTRAVENOUS CONTRAST DECREASE S SENSITIVITY FOR DETECTION OF FOCAL LESIONS AND VASCULAR PATHOLOGY. LINES/TUBES: There are minimal fibrotic changes in the right lateral lower lung. LUNGS AND AIRWAYS: A calcified adenoma i n the right upper lung measures 0.2 cm. PLEURA: The pleural spaces are clear. HEART AND MEDIASTINUM: The visualized th yroid gland is normal. No significant mediastinal, hilar, or axill alejandro lymphadenopathy. The heart and pericardium are within normal limits. The fluid and the heart is lower density than myocardial, consistent with anemia. Mild calcification of the left anterior desce nding coronary artery. SOFT TISSUES AND BONES: Moderate degener ative changes of the glenohumeral joints. Moderate degenerati ve disc changes of the lower cervical spine. Mild compression deformi ty the superior endplate of L1 is new with mild retropulsion. UPPER ABDOMEN: The upper abdomen was bet ter evaluated on the MRI obtained from the same day. Nodular, cir rhotic liver with posttreatment changes. Cholelithiasis. S mall volume upper abdominal ascites. IMPRESSION: 1.No metastatic disease in the chest. 2.New mild compression of the superior e ndplate of L1 with mild retropulsion. Signed: Jose D Rivers MD Report Verified Date/Time: 01/06/2020 14:49:26 Procedure Note Interface, External Ris In - 01/06/2020 2:51 PM CDT FINAL REPORT TECHNIQUE: CT scan of the chest WITHOUT intravenous contrast. Dose modulation, iterative reconstruction, an d/or weight-based adjustment of the mA/kV was utilized to reduce the radiation dose to as low as reasonably achievable. INDICATION: Unlisted Reason for Exam. COMPARISON: Chest CT from 10/07/2019. FINDINGS: ABSENCE OF INTRAVENOUS CONTRAST DECREASE S SENSITIVITY FOR DETECTION OF FOCAL LESIONS AND VASCULAR PATHOLOGY. LINES/TUBES: There are minimal fibrotic changes in the right lateral lower lung. LUNGS AND AIRWAYS: A calcified adenoma i n the right upper lung measures 0.2 cm. PLEURA: The pleural spaces are clear. HEART AND MEDIASTINUM: The visualized th yroid gland is normal. No significant mediastinal, hilar, or axill alejandro lymphadenopathy. The heart and pericardium are within normal limits. The fluid and the heart is lower density than myocardial, consistent with anemia. Mild calcification of the left anterior desce nding coronary artery. SOFT TISSUES AND BONES: Moderate degener ative changes of the glenohumeral joints. Moderate degenerati ve disc changes of the lower cervical spine. Mild compression deformi ty the superior endplate of L1 is new with mild retropulsion. UPPER ABDOMEN: The upper abdomen was bet ter evaluated on the MRI obtained from the same day. Nodular, cir rhotic liver with posttreatment changes. Cholelithiasis. S mall volume upper abdominal ascites. IMPRESSION: 1.No metastatic disease in the chest. 2.New mild compression of the superior e ndplate of L1 with mild retropulsion. Signed: Jose D Rivers MD Report Verified Date/Time: 01/06/2020 1 4:49:26 Performing Organization Address City/State/Zipcode Phone Number [facility] Ul[facility]ound PARACENTESIS (01/06/2020 11:20 AM CDT)Only the most recent of10 resultswithin the time period is included. Specimen Narrative Performed At FINAL REPORT [facility] Ultrasound guided paracentesis Clinical History: Ascites. Sedation: None. Used [employer] Attendant: Elaine Blake PA-C Supervising Physician: Karina Conner MD Cardiac Cath Technologist: None. Estimated Blood Loss: < 1 mL. Specimen: 7500 mL of clear yellow fluid, samples sent to laboratory. Technique: Informed consent was obtain ed. The risks of pain, bleeding, infection, bowel perforation, injury to adjacent structures, and adverse medication react ions were discussed with the patient. After informed consent was o btained, the patient's abdomen was scanned. The right lower quadrant of the abdomen was selected for paracentesis. After the largest fl uid pocket area was marked, and the anterior abdominal wall was eval uated with color Doppler to exclude presence of blood vessels rosalva sing the area, the skin was prepped and draped in the usual sterile manner. After local anesthesia was achieved with lidocaine, a 5 Austrian one-step catheter was advanced into the peritoneal cavity under ultrasound guidance. After completion of drainage, the cathet er was removed. There was no evidence of complication. Impression: Successful ultrasound guided paracentesi s. Signed: Karina Conner MD Report Verified Date/Time: 01/06/2020 13:56:08 Reading Location: [facility] [id number] [facility] Reading Room Electronically signed by: KARINA CONNER MD o n 01/06/2020 01:56 PM Procedure Note Interface, External Ris In - 01/06/2020 1:58 PM CDT FINAL REPORT Ultrasound guided paracentesis Clinical History: Ascites. Sedation: None. Used [employer] Attendant: Elaine Blake PA-C Supervising Physician: Karina Conner MD Cardiac Cath Technologist: None. Estimated Blood Loss: < 1 mL. Specimen: 7500 mL of clear yellow fluid, samples sent to laboratory. Technique: Informed consent was obtaine d. The risks of pain, bleeding, infection, bowel perforation, injury to adjacent structures, and adverse medication react ions were discussed with the patient. After informed consent was ob tained, the patient's abdomen was scanned. The right lower quadrant o f the abdomen was selected for paracentesis. After the largest flu id pocket area was marked, and the anterior abdominal wall was eval uated with color Doppler to exclude presence of blood vessels rosalva sing the area, the skin was prepped and draped in the usual sterile manner. After local anesthesia was achieved with lidocaine, a 5 Austrian one-step catheter was advanced into the peritoneal cavity under ultrasound guidance. After completion of drainage, the cathet er was removed. There was no evidence of complication. Impression: Successful ultrasound guided paracentesi s. Signed: Karina Conner MD Report Verified Date/Time: 01/06/2020 1 3:56:08 Reading Location: [facility] [id number] [facility] Reading Room Performing Organization Address City/[facility] Phone Number RIS Body fluid cell count with differential (01/06/2020 10:14 AM CDT)Only the most recent of10 resultswithin the time period is included. Appearance Hazy (A) Clear [facility] Color Straw Colorless, [facility] Straw [facility] RBCs 160 (H) <=1 /cu mm [facility] Adjusted WBC Count 73 (H) <=5 /cu mm [facility] Lining Cells 21 (H) <=1 /cu mm [facility] % Segs 27 % [facility] % Lymphs 34 % [facility] % Monos 39 % [facility] % Eos 0 % [facility] % Baso 0 % [facility] Container Body Fluid Sterile Cup [facility] Specimen Body Fluid - Ascites (disorder) Performing Organization Address [facility] Hospitalcode Phone Number [facility] [address] C[facility] CBC with platelet count + automated diff (12/30/2019 7:58 AM CDT)Only the most recent of11 resultswithin the time period is included. Pathologist Sig nature WBC 5.0 3.5 - 10.5 [facility] K/L [facility] RBC 3.51 (L) 3.93 - 5.22 [facility] M/L [facility] Hemoglobin 9.4 (L) 11.2 - 15.7 [facility] GM/DL [facility] Hematocrit 29.7 (L) 34.1 - 44.9 % [facility] MCV 84.6 79.4 - 94.[address] [facility] MCH 26.8 25.6 - 32.[address] [facility] MCHC 31.6 (L) 32.2 - 35.5 [facility] GM/DL [facility] RDW 18.3 (H) 11.7 - 14.4 % [facility] Platelets 90 (L) 150 - 450 K/CU [facility] MPV 9.0 (L) 9.4 - 12.[address] [facility] nRBC 0 0 - 0 /[address] [facility] % Neutros 83 % [facility] % Lymphs 6 % [facility] % Monos 11 % [facility] % Eos 0 % [facility] % Baso 0 % [facility] # Neutros 4.12 1.56 - 6.13 [facility] # Lymphs 0.28 (L) 1.18 - 3.74 [facility] # Monos 0.54 (H) 0.24 - 0.36 [facility] # Eos 0.02 (L) 0.04 - 0.36 [facility] K/L [facility] # Baso 0.01 0.01 - 0.08 [facility] K/L [facility] Immature 0 0 - 1 % [facility] Granulocytes-Relative [facility] Specimen Blood Performing Organization Address City/[facility]/Zipcode Phone Number [address] [address] [place] aPTT (12/30/2019 7:58 AM CDT)Only the most recent of5 resultswithin the time period is included. Pathologist Sig nature PTT 33.9 22.5 - 36.[address] [facility] Specimen Blood Performing Organization Address [facility] Hospitalcoca Phone Number [address] [address] [place] Prothrombin time/INR (12/30/2019 7:58 AM CDT)Only the most recent of9 results within the time period is included. Pathologist Sig nature Protime 15.5 (H) 11.9 - 14.[address] [facility] INR 1.26 <=5.[address] [facility] Specimen Blood Narrative Performed At Effective 08/04/2018: PT Reference Range [facility] Change New: 11.9-14.2 Previous: 11.7-14.7 RECOMMENDED COUMADIN/WARFARIN INR THERAPY RANGES STANDARD DOSE: 2.0-3.0 Includes: PROPHYLAXIS for venous thrombosis, systemic embolization; TREATMENT for venous thrombosis and/or pulmonary embolus. HIGH RISK: Target INR is 2.5-3.5 for patients wiht mechanical heart valves. Performing Organization Address City/State/Zipcode Phone Number [address] [address] [place] POC-Glucose meter (11/27/2019 11:51 AM CDT)Only the most recent of22 results within the time period is included. POC-Glucose Meter 221 (H)Comment: : 70 - 110 DELMY PICKETT'S TESTED AT [facility] mg/dL [facility] [address] [facility], [address]: Raw Stock Machine Loader/Technicia n ID = [id number] for DAVION WALTON Specimen Blood Performing Organization Address City/State/Zipcode Phone Number [facility] [address] [place], [place] [phone] CENTER Comprehensive metabolic panel (11/26/2019 4:32 AM CDT)Only the most recent of8 resultswithin the time period is included. Pathologist [facility] Protein, Total 5.7 (L) 6.0 - 8.3 [facility] gm/dL [facility] Albumin 3.3 (L) 3.5 - 5.0 [facility] g/dL [facility] Alkaline 139 40 - 150 U/L [facility] Phosphatase [facility] Total Bilirubin 1.6 (H) 0.2 - 1.2 [facility] mg/dL [facility] Sodium 136 136 - 145 [facility] meq/L [facility] Potassium 4.3 3.5 - 5.1 [facility] meq/L [facility] Chloride 99 98 - 107 [facility] meq/L [facility] CO2 29 22 - 29 meq/L [facility] BUN 21 7 - 21 mg/dL [facility] Creatinine 0.87 0.57 - 1.25 [facility] mg/dL [facility] Glucose 150 (H) 70 - 105 [facility] mg/dL [facility] Calcium 8.3 (L) 8.4 - 10.2 [facility] mg/dL [facility] AST 33 5 - 34 U/L [facility] ALT 39 6 - 55 U/L [facility] EGFR 65Comment: mL/min/1.73 [facility] ESTIMATED GFR IS sq [facility] NOT ACCURATE MEDICAL CENTER CREATININE CLEARANCE IN PREDICTING GLOMERULAR FILTRATION RATE. ESTIMATED GFR IS NOT APPLICABLE FOR DIALYSIS PATIENTS. Specimen Blood Narrative Performed At Raw Stock Machine Loader ID - AAMIR Villareal [facility] Performing Organization Address [facility]/Zipcode Phone Number [address] [address] CENTER Glucose Peritoneal Fluid (11/24/2019 4:17 PM CDT) Glucose, 327 mg/dL [facility] Peritoneal Fluid Comment: INC[facility]PORATED Reference Range approximates that found in serum. Specimen Body Fluid - Ascites (disorder) Narrative Performed At Performing Lab [facility] te [address] [place] [address] Obdulio Griffith MD, PhD, MOON Performing Organization Address [facility] Hospitalcode Phone Number [place] [address] INCORPORATED [address] [facility] Body fluid culture + gram stain (11/24/2019 4:17 PM CDT)Only the most recent of 2 resultswithin the time period is included. Result No growth [facility] Gram Stain Result 3+ WBCs [facility] Gram Stain Result No organisms seen [facility] Specimen Body Fluid - Ascites (disorder) Performing Organization Address [facility] Hospitalcode Phone Number [address] [address] CENTER SARS-CoV2/RT-PCR (Asymptomatic ONLY) (11/24/2019 9:51 AM CDT)Only the most recent of2 resultswithin the time period is included. SARS-COV2/RT-PCR Negative Not Detected, [facility] Negative, See [facility] external report CENTER for linked test SARS-COV-2 [facility] PERFORMING LAB [facility] Specimen Other - Nasopharyngeal wall structure (b mary anne structure) Narrative Performed At Negative result for this test determines that [facility] SARS-CoV-2 RNA was not present in the specimen above the Limit of Detection (LOD). However, Negative results do not preclude SARS-CoV-2 infection and should not be used as the sole basis for treatment or patient management decisions. Negative results must be combined with clinical observations, patient history, and epidemiological information. A false negative result may occur if a specimen is improperly collected, transported or handled. A false negative result should be considered if patient's recent exposures or clinical presentation indicate that COVID-19 (SARS-CoV-2) is likely and diagnostic tests for other causes of illness are negative. Re-testing should be considered in cases of suspected false negatives. The limit of detection for this assay is 800 copies/mL. This SARS CoV-2 test is a real-time RT-PCR test intended for the qualitative detection of nucleic acid from SARS-CoV-2 in a nasopharyngeal swab specimen collected from individuals suspected of COVID-19 by their healthcare provider. This test has not been Food and Drug Administration (FDA) cleared or approved. This is a modified version of an approved Emergency Use Authorization (EUA) and is in the process of review by the FDA. Once authorized by the FDA, the issued EUA will be effective until the declaration that circumstances exist justifying the authorization of the emergency use of in vitro diagnostic tests for detection and/or diagnosis of COVID-19 is terminated under Section 564(b)(2) of the Act or the EUA is revoked under Section 564(g) of the Act. Fact Sheet for Healthcare Providers: https://www.Aptidata.Tricycle/sites/default/files/pro duct/documents/Fact_Sheet_HC_Providers_Lyra_SA RS-CoV-2.pdf Fact Sheet for Healthcare Patients: https://www.Aptidata.Tricycle/sites/default/files/pro duct/documents/Fact_Sheet_Patients_Lyra_SARS-C oV-2.pdf Performing Laboratory: [address] [address] Performing Organization Address City/State/Zipcode Phone Number [address] [address] CENTER Urinalysis w/Microscopic + Reflex to Culture (11/23/2019 4:24 PM CDT) Color, UA Yellow [facility] Clarity, UA Clear [facility] Specific Kennard, 1.026 1.001 - 1.035 [facility] pH, UA 5.0 5.0 - 8.[address] [facility] Protein, UA Negative Negative [facility] Glucose, UA >1000 mg/dL (A) Negative [facility] Ketones, UA Negative Negative [facility] Bilirubin, UA Negative Negative [facility] Blood, UA Negative Negative [facility] Nitrite, UA Negative Negative [facility] Leukocytes, UA Small (A) Negative [facility] Urobilinogen, UA 0.2 0.2 - 1.0 mg/dL [facility] RBC, UA 1 /HPF [facility] WBC, UA 1 /HPF [facility] Mucus Rare [facility] Squam Epithel, UA 1 /HPF [facility] Specimen Source [facility] Specimen Urine Narrative Performed At Raw Stock Machine Loader ID - [auto] [facility] Raw Stock Machine Loader ID - tech Performing Organization Address [facility] Hospital[facility] Phone Number [address] [address] [place] Blood Culture - Routine (Left Venipuncture) (11/23/2019 3:54 PM CDT) Pathologist Sig nature Result No growth in [address] [facility] Specimen Blood - Entire left upper arm (body stru cture) Performing Organization Address [facility]/Zipcode Phone Number [address] [address] [place] CBC (Hemogram only) (11/19/2019 4:37 AM CDT) Pathologist Sig nature WBC 4.9 3.5 - 10.5 K/L [facility] RBC 3.76 (L) 3.93 - 5.22 M/L [facility] Hemoglobin 9.0 (L) 11.2 - 15.7 GM/DL [facility] Hematocrit 30.4 (L) 34.1 - 44.9 % [facility] MCV 80.9 79.4 - 94.[address] [facility] MCH 23.9 (L) 25.6 - 32.[address] [facility] MCHC 29.6 (L) 32.2 - 35.5 GM/DL [facility] RDW 18.0 (H) 11.7 - 14.4 % [facility] Platelets 87 (L) 150 - 450 K/CU MM [facility] MPV 10.5 9.4 - 12.[address] [facility] nRBC 0 0 - 0 /[address] [facility] Specimen Blood Performing Organization Address City/State/Zipcode Phone Number [facility] [address] [place] [address] RFA tumor ablation (11/18/2019 11:01 AM CDT) Specimen Narrative Performed At FINAL REPORT [facility] and ultrasound Guided microwave ablat ion of hepatocellular carcinoma. History: Hepatocellular carcinoma in a p atient with advanced cirrhosis of the liver involving segment s 4B and segment 3 intracapsular/subcapsular locations. Sta tus post previous TACE on 04/15/2019 and TARE for the right lobe of the liver on 08/11/2019. The tumors in the left lobe are small measur ing approximately 1.9 and 1.5 cm in the maximum dimension respectively . Microwave ablation was recommended in a tumor board. Used Car Lot Attendant: Randy Radford MD. Cardiac Cath Technologist: Alex Richardson Modality: Ultrasound and CT DOSE REDUCTION: The examination was perf ormed according to departmental dose-optimization program w hich includes automated exposure control, adjustment of the mA a nd/or kV according to patient size and/or use of iterative reconstruct ion technique. Radiation dose: 1742 mGy-cm. Sedation: Not applicable. Anesthesia: The procedure was performed under general anesthesia. Medicines: Ancef 2 g IV. Estimated blood loss: < 5 cc. Technique: Informed written consent was obtained. D iscussion of risks, benefits, and alternatives were made with the keli ent. The patient expressed understanding and agreed to proceed. A u niversal timeout was performed prior to starting the procedur e. The room personnel used personal protect sandi equipment. The operators used sterile gloves in addition. The patient was laid supine on the CT ta ble. General endotracheal anesthesia was admi nistered. A preliminary ultrasound scan was perfor med through the region of interest to localize the target. The tar get lesion was recognized and a right upper quadrant access site was s elected. The maximum dimensions of the lesion are 1.99 cm for the segment IVb and 1.8 cm for the segment 3 lesions respectively. A wide area of the abdomen and lower jacoby st was prepped with chlorhexidine gluconate and draped in a maximal sterile fashion. We targeted the segment IVb lesion first . A dermatotomy was performed. Using real-time ultrasound gu idance, the microwave antenna was placed in the target. At this time, a 4 Austrian centesis needle needle was advanced under the ultrasound guidance into the periton eal cavity between the liver and the gallbladder. Approximately 100 c c of normal saline mixed with contrast medium at approximately 2% conc entration was injected to displace the bowel from around the liver . A safe needle tract and position was con firmed with CT. The hydrodissection needle had retracted. Th ere was inadvertent injection of the fluid into the gallbladder lumen. This was followed by microwave ablation of the target. The protocol used for ablation was to create a 3.5 cm ablation zone at 100 W of power with 6 minutes and 30 seconds of a blation time. Track ablation was not performed for this subcapsular l esion. The segment 3 lesion was very difficult and inconsistent to localize on ultrasound due to the cirrhotic liver and the lesion morphology. Therefore under ultrasound guidance, 22- gauge Chiba needle was placed percutaneously into the suspected target site. A CT of the liver with low dose IV contr ast in arterial and venous phase was performed to assess the outcom e. There was no residual tumor visualized. There was no perihepat ic hemorrhage, pneumothorax or other complication. The Chiba needle was seen to be in the area of washout confirming the location of the s egment 8 tumor. This was followed by placement of the mi jaden ablation probe using a right upper quadrant approach followin g a dermatotomy and ultrasound guidance into the target area of the segment 3. This was followed by microwave ablation of the ta rget of 3-3.5 cm ablation zone with 100 W power and 5 1/2 minutes of ablation time. The ablation time was modified to prevent th ermal damage to the abdominal wall. The microwave probe was withdrawn. A postprocedure CT was done through the region of interest to rule out any complications. It confirmed an e xcellent ablation zone in segment 3 of the liver at the expected s ite of the tumor as compared with the previous MRI and the recently n oncontrast enhanced CT images. The presence of ascites facilitated safe performance of this procedure bilaterally hydrodissecting th e liver from the parietal peritoneum of the anterior abdominal wal l and the surrounding viscera. An aseptic dressing was applied. The pat ient was transferred to the postanesthesia care unit. After close observation, consisting of g radual advancement of diet to clear liquids, the patient did well with out any untoward symptoms. The patient is a frail woman. After disc ussion with the referring oncologist, it was decided to admit the patient for overnight observation. Her pain was effectively co ntrolled. Her diet was gradually advanced over the next 24 hour s for solid diet. The patient did well and was discharged home in stab le condition approximately 24 hours after the procedure. The patient was given an oral regimen of PRN p.o. analgesics, an antibiotic for five days, and stool soft eners. Complications: None immediate. Specimen: Not applicable. Impression: Successful ultrasound and CT guided perc utaneous microwave ablation of 2 separate HCC lesions, one in segmen t IVb and another in segment 3 of the liver as described above. Follow-up with cross-sectional imaging i n 4-6 weeks. Thank you for the opportunity to assist in the care of your patient. Signed: Randy Radford MD Report Verified Date/Time: 11/21/2019 10:38:16 Reading Location: [facility] P048 Angio Body Reading Room Procedure Note Interface, External Ris In - 11/21/2019 10:40 AM CDT FINAL REPORT CT and ultrasound Guided microwave ablat ion of hepatocellular carcinoma. History: Hepatocellular carcinoma in a p atient with advanced cirrhosis of the liver involving segment s 4B and segment 3 intracapsular/subcapsular locations. Sta tus post previous TACE on 04/15/2019 and TARE for the right lobe of the liver on 08/11/2019. The tumors in the left lobe are small measur ing approximately 1.9 and 1.5 cm in the maximum dimension respectively . Microwave ablation was recommended in a tumor board. Used Car Lot Attendant: Randy Radford MD. Cardiac Cath Technologist: Alex Richardson Modality: Ultrasound and CT DOSE REDUCTION: The examination was perf ormed according to departmental dose-optimization program w hich includes automated exposure control, adjustment of the mA a nd/or kV according to patient size and/or use of iterative reconstruct ion technique. Radiation dose: 1742 mGy-cm. Sedation: Not applicable. Anesthesia: The procedure was performed under general anesthesia. Medicines: Ancef 2 g IV. Estimated blood loss: < 5 cc. Technique: Informed written consent was obtained. D iscussion of risks, benefits, and alternatives were made with the keli ent. The patient expressed understanding and agreed to proceed. A u niversal timeout was performed prior to starting the procedur e. The room personnel used personal protect sandi equipment. The operators used sterile gloves in addition. The patient was laid supine on the CT ta ble. General endotracheal anesthesia was admi nistered. A preliminary ultrasound scan was perfor med through the region of interest to localize the target. The tar get lesion was recognized and a right upper quadrant access site was s elected. The maximum dimensions of the lesion are 1.99 cm for the segment IVb and 1.8 cm for the segment 3 lesions respectively. A wide area of the abdomen and lower jacoby st was prepped with chlorhexidine gluconate and draped in a maximal sterile fashion. We targeted the segment IVb lesion first . A dermatotomy was performed. Using real-time ultrasound gu idance, the microwave antenna was placed in the target. At this time, a 4 Austrian centesis needle needle was advanced under the ultrasound guidance into the periton eal cavity between the liver and the gallbladder. Approximately 100 c c of normal saline mixed with contrast medium at approximately 2% conc entration was injected to displace the bowel from around the liver . A safe needle tract and position was con firmed with CT. The hydrodissection needle had retracted. Th ere was inadvertent injection of the fluid into the gallbladder lumen. This was followed by microwave ablation of the target. The protocol used for ablation was to create a 3.5 cm ablation zone at 100 W of power with 6 minutes and 30 seconds of a blation time. Track ablation was not performed for this subcapsular l esion. The segment 3 lesion was very difficult and inconsistent to localize on ultrasound due to the cirrhotic liver and the lesion morphology. Therefore under ultrasound guidance, 22- gauge Chiba needle was placed percutaneously into the suspected target site. A CT of the liver with low dose IV contr ast in arterial and venous phase was performed to assess the outcom e. There was no residual tumor visualized. There was no perihepat ic hemorrhage, pneumothorax or other complication. The Chiba needle was seen to be in the area of washout confirming the location of the s egment 8 tumor. This was followed by placement of the mi Flaviar ablation probe using a right upper quadrant approach followin g a dermatotomy and ultrasound guidance into the target area of the segment 3. This was followed by microwave ablation of the ta rget of 3-3.5 cm ablation zone with 100 W power and 5 1/2 minutes of ablation time. The ablation time was modified to prevent th ermal damage to the abdominal wall. The microwave probe was withdrawn. A postprocedure CT was done through the region of interest to rule out any complications. It confirmed an e xcellent ablation zone in segment 3 of the liver at the expected s ite of the tumor as compared with the previous MRI and the recently n oncontrast enhanced CT images. The presence of ascites facilitated safe performance of this procedure bilaterally hydrodissecting th e liver from the parietal peritoneum of the anterior abdominal wal l and the surrounding viscera. An aseptic dressing was applied. The pat ient was transferred to the postanesthesia care unit. After close observation, consisting of g radual advancement of diet to clear liquids, the patient did well with out any untoward symptoms. The patient is a frail woman. After disc ussion with the referring oncologist, it was decided to admit the patient for overnight observation. Her pain was effectively co ntrolled. Her diet was gradually advanced over the next 24 hour s for solid diet. The patient did well and was discharged home in stab le condition approximately 24 hours after the procedure. The patient was given an oral regimen of PRN p.o. analgesics, an antibiotic for five days, and stool soft eners. Complications: None immediate. Specimen: Not applicable. Impression: Successful ultrasound and CT guided perc utaneous microwave ablation of 2 separate HCC lesions, one in segmen t IVb and another in segment 3 of the liver as described above. Follow-up with cross-sectional imaging i n 4-6 weeks. Thank you for the opportunity to assist in the care of your patient. Signed: Randy Radford MD Report Verified Date/Time: 11/21/2019 1 0:38:16 Reading Location: [place] [address] Angio Body Reading Room Performing Organization Address City/[facility] Phone Number GE RIS US unspecific guidance interventional (11/18/2019 11:00 AM CDT) Specimen Narrative Performed At FINAL REPORT [email or web address] Please see the report under accession #[id number]. Thank you. Signed: Randy Radford MD Report Verified Date/Time: 11/21/2019 11:30:50 Reading Location: [place] [address] Angio Body Reading Room Procedure Note Interface, External Ris In - 11/21/2019 11:32 AM CDT FINAL REPORT Please see the report under accession #[id number]. Thank you. Signed: Randy Radford MD Report Verified Date/Time: 11/21/2019 1 1:30:50 Reading Location: [place] [address] Angio Body Reading Room Performing Organization Address [facility] Phone Number [email or web address] Basic Metabolic Panel (11/18/2019 7:27 AM CDT)Only the most recent of4 results within the time period is included. Sodium 135 (L) 136 - 145 meq/L [facility] Potassium 4.0 3.5 - 5.1 meq/L [facility] Chloride 100 98 - 107 meq/L [facility] CO2 26 22 - 29 meq/L [facility] BUN 22 (H) 7 - 21 mg/dL [facility] Creatinine 0.99 0.57 - 1.25 [facility] mg/dL [facility] Glucose 181 (H) 70 - 105 mg/dL [facility] Calcium 8.3 (L) 8.4 - 10.2 [facility] mg/dL [facility] EGFR 56Comment: ESTIMATED mL/min/1.73 sq [facility] GFR IS NOT m [facility] [place] CREATININE CLEARANCE IN PREDICTING GLOMERULAR FILTRATION RATE. ESTIMATED GFR IS NOT APPLICABLE FOR DIALYSIS PATIENTS. Specimen Blood Narrative Performed At Raw Stock Machine Loader ID - ELSA Martinez [facility] Performing Organization Address City/State/Zipcode Phone Number [facility] [address] [place] [address] CENTER EKG 12 lead (11/18/2019 6:58 AM CDT) Specimen Narrative Performed At Ventricular Rate 77 BPM GE MUSE Atrial Rate 77 BPM P-R Interval 154 ms QRS Duration 92 ms Q-T Interval 416 ms QTC Calculation(Bazett) 470 ms P Twain 80 degrees R Twain 78 degrees T Twain 45 degrees Normal sinus rhythm Possible Anterior infarct 06 Feb 2018 Prolonged QT Abnormal ECG When compared with ECG of 06-FEB-2018 12 :50, QRS axis has shifted from right QT has lengthened Confirmed by MD RAYRAY, DANI ([id number]) on 11/21/2019 8:38:28 AM Procedure Note Interface, External Ris In - 11/21/2019 8:38 AM CDT Ventricular Rate 77 BPM Atrial Rate 77 BPM P-R Interval 154 ms QRS Duration 92 ms Q-T Interval 416 ms QTC Calculation(Bazett) 470 ms P Twain 80 degrees R Twain 78 degrees T Twain 45 degrees Normal sinus rhythm Possible Anterior infarct 06 Feb 2018 Prolonged QT Abnormal ECG When compared with ECG of 06-FEB-2018 12 :50, QRS axis has shifted from right QT has lengthened Confirmed by MD RAYRAY, SOHAJOCELIN ([id number]) on 11/21/2019 8:38:28 AM Performing Organization Address City/State/Zipcode Phone Number GE MUSE Cytology (11/11/2019 8:21 AM CDT) Pathologist Sig nature Case Report Medical Cytology Report Case: [id number] [facility] Authorizing Provider: Peggy Casillas MD Collected: 11/11/2019 08:[address] [facility] Ordering Location: [facility] Radiology Main Received: 11/15/2019 09:37 AM [facility] Pathologist: Alberto Caba MD Specimen: Peritoneal Fl uid DIAGNOSIS PERITONEAL FLUID (CYTOSPINS): [facility] Electronically signed - NEGATIVE FOR MALIGNANCY [facility] by Alberto Caba FEW LYMPHOCYTES PRESENT [facility] DEYA High MD on Signing Pathologist Direct Phone Line: 11/15/2019 at 4:58 PM CPT Code(s) 617[address] [facility] CLINICAL DATA Ascites, history of [facility] liver cancer [facility] SPECIMEN SOURCE PERITONEAL FLUID [facility] GROSS DESCRIPTION 3 mls yellow fluid; 4 cytosp ins (not enough specimen for cell block) [facility] Collected: [facility] Received: [id number] [facility] MICROSCOPIC Performed. [facility] DESCRIPTION [facility] STATEMENT OF Satisfactory [facility] ADEQUACY [facility] Gross assessment [facility] was performed at [facility] Department of [facility] Pathology, [address] [place] [address], [place] [address], Technical component [facility] was performed at [facility] Department of [facility] Pathology, [address] [place] [address], [place] [address], Professional [facility] component was [facility] performed at Department of MEDICAL CENTER Pathology, [address] [place] [address], [place] [address], Specimen Body Fluid - Peritoneal fluid (substance ) Narrative Performed At This result has an attachment that is no t available. Performing Organization Address City/State/Zipcode Phone Number [facility] [address] [place], [place] [id number] CENTER PT/aPTT (10/19/2019 12:04 PM CDT) Pathologist Sig nature Protime 15.2 (H) 11.9 - 14.[address] [facility] INR 1.23 <=5.[address] [facility] PTT 35.1 22.5 - 36.[address] [facility] Specimen Blood Narrative Performed At Effective 08/04/2018: PT Reference Range [facility] Change New: 11.9-14.2 Previous: 11.7-14.7 RECOMMENDED COUMADIN/WARFARIN INR THERAPY RANGES STANDARD DOSE: 2.0-3.0 Includes: PROPHYLAXIS for venous thrombosis, systemic embolization; TREATMENT for venous thrombosis and/or pulmonary embolus. HIGH RISK: Target INR is 2.5-3.5 for patients wiht mechanical heart valves. Performing Organization Address City/State/Zipcode Phone Number [facility] [address] [place] [address] [place] bone scan whole body (10/07/2019 1:53 PM CDT)Only the most recent of2 resultswithin the time period is included. Specimen Narrative Performed At FINAL REPORT [facility] PROCEDURE: BONE SCAN, WHOLE BODY CPT CODE: 95239 INDICATION: Hepatocellular carci noma, pretransplant evaluation for liver transplantation PROTOCOL: 21.3 mCi of Tc-99m MDP was injected intravenously. Whole body and selected spot images were obtained approximately 3 hours later. FINDINGS: Tracer activity is mildly increased within the calvarium, maxilla, and mandible. Modera te uptake is seen within multiple joints including the shoulders, visualized wrists, and knees. Mild uptake is seen within the hi ps, focally worse on right, and ankles. Tracer activity within the s pine is mildly irregular. Diffuse radiotracer activity within the abdomen is suggestive of ascites. Physiologic activity within the right kidney and urinary bladder, left kidney is only partially v isualized on this study. IMPRESSION: 1. No specific evidence of osteoblastic neoplastic disease. 2. Degenerative changes seen within mult iple joints. 3. Findings consistent with ascites. Images for comparison/correlation were C T chest dated 10/07/2019, bone scan 02/11/2019. Signed: Afua Dove MD Report Verified Date/Time: 10/07/2019 14:24:47 Reading Location: [address] [facility] Reading Room Procedure Note Interface, External Ris In - 10/07/2019 2:26 PM CDT FINAL REPORT PROCEDURE: BONE SCAN, WHOLE BODY CPT CODE: 95236 INDICATION: Hepatocellular carcinom a, pretransplant evaluation for liver transplantation PROTOCOL: 21.3 mCi of Tc-99m MDP wa s injected intravenously. Whole body and selected spot images were obtained approximately 3 hours later. FINDINGS: Tracer activity is mil dly increased within the calvarium, maxilla, and mandible. Modera te uptake is seen within multiple joints including the shoulders, visualized wrists, and knees. Mild uptake is seen within the hi ps, focally worse on right, and ankles. Tracer activity within the s pine is mildly irregular. Diffuse radiotracer activity within the abdomen is suggestive of ascites. Physiologic activity within the right kidney and urinary bladder, left kidney is only partially v isualized on this study. IMPRESSION: 1. No specific evidence of osteoblastic neoplastic disease. 2. Degenerative changes seen within mult iple joints. 3. Findings consistent with ascites. Images for comparison/correlation were C T chest dated 10/07/2019, bone scan 02/11/2019. Signed: Afua Dove MD Report Verified Date/Time: 10/07/2019 1 4:24:47 Reading Location: [address] [facility] Reading Room Performing Organization Address City/State/Zipcode Phone Number [facility] Alpha fetoprotein (AFP), tumor marker (10/07/2019 12:17 PM CDT)Only the most recent of3 resultswithin the time period is included. Pathologist Sig nature Alpha-Fetoprotein 6.1 <10.0 ng/mL [facility] Specimen Blood Narrative Performed At Raw Stock Machine Loader ID - NTP [facility] Performing Organization Address City/[facility]/Zipcode Phone Number [facility] [address] [place] [address] [place] Hepatic function panel (10/07/2019 12:17 PM CDT)Only the most recent of3 results within the time period is included. Pathologist Sig nature Protein, Total 6.6 6.0 - 8.3 gm/dL [facility] Albumin 3.4 (L) 3.5 - 5.0 g/dL [facility] Total Bilirubin 1.3 (H) 0.2 - 1.2 mg/dL [facility] Bilirubin, Direct 0.7 (H) 0.1 - 0.5 mg/dL [facility] Alkaline Phosphatase 169 (H) 40 - 150 U/L [facility] AST 32 5 - 34 U/L [facility] ALT 25 6 - 55 U/L [facility] Specimen Blood Narrative Performed At Raw Stock Machine Loader ID - NTP [facility] Performing Organization Address City/[facility] Phone Number [address] [address] [place] tumor localization SPECT (08/11/2019 3:37 PM CDT)Only the most recent of2 resultswithin the time period is included. Specimen Narrative Performed At FINAL REPORT RIS PROCEDURE: TRACER DISTRIB UTION STUDY - SPECT ([facility] CPT CODE: 41161 CLINICAL INDICATION: Hepatocellu lar carcinoma PROTOCOL: 35.5 mCi of Y-90 microsph eres (SIR-Spheres) had been previously administered. SPECT imaging o f the liver and upper abdomen using Bremsstrahlung radiation was per formed approximately 45 minutes later without additional injecti on of radiopharmaceutical. FINDINGS: Tracer distribution in the vis ualized portion of the liver is irregular. No significant activity is noted outside of the liver. IMPRESSION: Appropriate tracer dist ribution following right hepatic artery injection. Signed: Gerry Hill MD Report Verified Date/Time: 08/12/2019 16:06:26 Reading Location: [address] Nuc Med Reading Room Procedure Note Interface, External Ris In - 08/12/2019 4:08 PM CDT FINAL REPORT PROCEDURE: TRACER DIS TRIBUTION STUDY - SPECT (Bremsstrahlung) CPT CODE: 49973 CLINICAL INDICATION: Hepatocellular carcinoma PROTOCOL: 35.5 mCi [...] bution following right hepatic artery injection. Signed: Gerry Hill MD Report Verified Date/Time: 08/12/2019 1 6:06:26 Reading Location: [address] Nuc Med Reading Room Performing Organization Address City/State/Zipcode Phone Number [id number] [place] Y90 MICROPSHERES THERAPY (08/11/2019 3:36 PM CDT) Specimen Narrative Performed At FINAL REPORT [facility] PROCEDURE: Y-90 microsphere therapy (SIR-Spheres) CPT CODE: 63467 CLINICAL INDICATION: Hepatocellular c arcinoma PROTOCOL: 35.5 mCi of a planned 37 mC i dosage of Y-90 labeled microspheres (SIR-Spheres) was administe red by the nuclear medicine physician to the right lobe of the liver via a hepatic artery catheter placed by the interventional ra diologist. IMPRESSION: Y-90 microsphere therapy Signed: Gerry Hill MD Report Verified Date/Time: 08/11/2019 16:19:17 Reading Location: [facility] 3rd Flr P327B Nuc Med Reading Room Procedure Note Interface, External Ris In - 08/11/2019 4:21 PM CDT FINAL REPORT PROCEDURE: Y-90 microsp here therapy (SIR-Spheres) CPT CODE: 04399 CLINICAL INDICATION: Hepatocellular ca rcinoma PROTOCOL: 35.5 mCi of a planned 37 mCi dosage of Y-90 labeled microspheres (SIR-Spheres) was administe red by the nuclear medicine physician to the right lobe of the liver via a hepatic artery catheter placed by the interventional ra diologist. IMPRESSION: Y-90 microsphere therapy Signed: Gerry Hill MD Report Verified Date/Time: 08/11/2019 1 6:19:17 Reading Location: [facility] 3rd Flr P327B Nuc Med Reading Room Performing Organization Address City/State/Zipcode Phone Number [facility] IR Visceral Arteriogram (08/11/2019 2:40 PM CDT)Only the most recent of2 resultswithin the time period is included. Specimen Narrative Performed At FINAL REPORT [facility] Procedure: Transarterial radio-embolizat ion of the liver. [...] a combined dictation for the mapping and treat ment. [employer] Attendant: Randy Radford M.D. Cardiac Cath Technologist: Alex Ospina Modality: Sonography and fluoroscopy. DOSE REDUCTION: The examination was perf ormed according to departmental dose-optimization program. Fluoro time: 7.9 minutes Radiation dose: 111 mGy Kerma-area. Sedation: Versed 3.5 mg and Fentanyl 175 mcg was given intravenously for conscious sedation. Vital signs we re monitored throughout the procedure by a dedicated [...] fashion. The right common femoral artery was lo calized using anatomic and ultrasonographic landmarks. The artery [...] fluoroscopic guidance. Over the wire a 5 Austrian vascular sheath was placed. The sheath was connected to a he parinized saline drip. Over the wire, a 5 Austrian reverse curve catheter was placed. This was [...] was injected by Dr. Hill of [facility]. The catheter was then advanced into the [...] The patient was laid supine on the [facility] dure table. Bilateral groins were prepped with [...] was followed by superselective [facility] branch point with a [...] Randy Radford MD Report Verified Date/Time: 08/11/2019 15:38:16 Reading Location: [place] [id number] Angio Body Reading Room Procedure Note Interface, [...] dictation for the map ping and treatment. [employer] Attendant: Randy Radford M.D. Cardiac Cath Technologist: Alex Ospina Modality: Sonography and fluoroscopy. DOSE [...] fluoroscopic guidance. Over the wire a 5 Austrian vascular sheath was placed. The sheath was connected to a he parinized saline drip. Over the wire, a 5 Austrian reverse curve catheter was placed. This was [...] was injected by Dr. Hill of nuclear [facility]. The catheter was then advanced into the [...] was followed by superselective catheterization of the ri ght hepatic artery branch point with a coaxial [...] Verified Date/Time: 08/11/2019 1 5:38:16 Reading Location: [place] [address] Angio Body Reading Room Performing Organization Address City/State/Zipcode Phone Number [facility] [place] tumor localization multiple (08/11/2019 12:40 PM CDT) Specimen Narrative Performed At FINAL REPORT [facility] PROCEDURE: TRACER DISTRIBUTION STUDY, WHOLE BODY with SPECT CPT CODE: 39274, 36367 CLINICAL INDICATION: Hepatocellular c arcinoma PROTOCOL: 2.7 mCi of Tc-99m MAA was i njected by the nuclear medicine physician via an [...] Shunting to the lungs is in an acce ptable range for therapy. Signed: Gerry Hill MD Report Verified Date/Time: 08/11/2019 16:15:18 Reading Location: [address] Reading Room Procedure Note Interface, External Ris In - 08/11/2019 4:17 PM CDT FINAL REPORT PROCEDURE: TRACER DISTRIBUTION STUDY, WHOLE BODY with SPECT CPT CODE: 31934, 14118 CLINICAL INDICATION: Hepatocellular ca rcinoma PROTOCOL: 2.7 [...] an accep table range for therapy. Signed: Gerry Hill MD Report Verified Date/Time: 08/11/2019 1 6:15:18 Reading Location: [address] Reading Room Performing Organization Address City/State/Zipcode Phone Number [facility] IR Embolization Arterial (08/11/2019 11:26 AM CDT)Only the most recent of2 resultswithin the time period is included. Specimen Narrative Performed At FINAL REPORT [facility] Procedure: Transarterial radio-embolizat ion of the liver. [...] a combined dictation for the mapping and treat ment. [employer] Attendant: Randy Radford M.D. Cardiac Cath Technologist: Alex Ospina Modality: Sonography and fluoroscopy. DOSE REDUCTION: The examination was perf ormed according to departmental dose-optimization program. Fluoro time: 7.9 minutes Radiation dose: 111 mGy Kerma-area. Sedation: Versed 3.5 mg and Fentanyl 175 mcg was given intravenously for conscious sedation. Vital signs we re monitored throughout the procedure by a dedicated [...] fashion. The right common femoral artery was lo calized using anatomic and ultrasonographic landmarks. The artery [...] fluoroscopic guidance. Over the wire a 5 Austrian vascular sheath was placed. The sheath was connected to a he parinized saline drip. Over the wire, a 5 Austrian reverse curve catheter was placed. This was [...] was injected by Dr. Hill of [facility]. The catheter was then advanced into the [...] patient was then brought back to [facility] iography. A universal timeout was performed prior to starting the procedure. The procedure room personnel used person al protective equipment. The operators used sterile gowns and gloves. The patient was laid supine on the [facility] dure table. Bilateral groins were prepped with [...] was followed by superselective catheterization of the ri t hepatic artery branch point with a coaxial [...] Randy Radford MD Report Verified Date/Time: 08/11/2019 15:38:16 Reading Location: [facility] P048 Angio Body Reading Room Procedure Note Interface, [...] dictation for the map ping and treatment. Used [employer] Attendant: Randy Radford M.D. Cardiac Cath Technologist: Alex Osipna Modality: Sonography and fluoroscopy. DOSE REDUCTION: The [...] fluoroscopic guidance. Over the wire a 5 Austrian vascular sheath was placed. The sheath was connected to a he parinized saline drip. Over the wire, a 5 Austrian reverse curve catheter was placed. This was [...] was injected by Dr. Hill of [facility]. The catheter was then advanced into the [...] patient was then brought back to [facility] iography. A universal timeout was performed prior to starting the procedure. The procedure room personnel used person al protective equipment. The operators used sterile gowns and gloves. The patient was laid supine on the [facility] dure table. Bilateral groins were prepped with [...] was followed by superselective catheterization of the ri ght hepatic artery branch point with a coaxial [...] Verified Date/Time: 08/11/2019 1 5:38:16 Reading Location: [facility] P0 Angio Body Reading Room Performing Organization Address City/State/[facility] [place] Phone Number GE RIS Bilirubin, direct (08/11/2019 7:36 AM CDT)Only the most recent of2 results within the time period is included. Pathologist Sig nature Bilirubin, Direct 0.3 0.1 - 0.5 mg/dL [facility] Specimen Blood Narrative Performed At Raw Stock Machine Loader ID - [id number] Performing Organization Address City/State/Zipcode Phone Number [place] [phone] [place] [address] [place] POC-Creatinine (05/27/2019 9:55 AM CDT)Only the most recent of2 resultswithin the time period is included. POC-Creatinine 0.8Comment: : 0.6 - 1.3 mg/dL [facility] TESTED AT [address], [address]: Raw Stock Machine Loader/Technici an ID = [id number] for Mee Kowalski POC-EGFR 72 mL/min/1.73M2 [facility] Specimen Blood Performing Organization Address City/[facility]/Zipcode Phone Number [address] [place] [address] abdomen without IV contrast (04/15/2019 1:46 PM ROUTE RELIEF DRIVER) Specimen Narrative Performed At FINAL REPORT Bluefly TECHNIQUE: CT of the abdomen WITHOUT int [...] D Rivers MD Report Verified Date/Time: 04/15/2019 19:39:35 Reading Location: [facility] C013Y CT Body R eading Room Procedure Note Interface, External Ris In - 04/15/2019 7:41 PM ROUTE RELIEF DRIVER FINAL REPORT TECHNIQUE: CT of the abdomen [...] D Rivers MD Report Verified Date/Time: 04/15/2019 1 9:39:35 Reading Location: [facility] B1 C013Y CT Body R eading Room Performing Organization Address City/State/Zipcode Phone Number GE RIS Insert peripheral IV (04/15/2019 1:11 PM ROUTE RELIEF DRIVER) [facility]ative [facility] 1:1 7 PM Interventional Radiology Post Procedu re Note PROCEDURE: TACE INDICATION/ PRE-OP DIAGNOSIS: HCC. POST-OP DIAGNOSIS: Same. IMPLANT: Doxorubicin infused 100mg Oncoz shimon RADIOLOGIST: Dr. Radford DESK ASSISTANT[facility] EBL: < 5 cc. SPECIMEN: None CONSCIOUS SEDATION: 1 mg Versed, 50 micr ogram Fentanyl intravenously. APPROACH: R FOOD SERVICE CASHIER. 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 COMPLICATIONS: None. INSTRUCTIONS: Flat bedrest and restricte d RLE movement for 3 hours, d/c home in 6 hours. *Preliminary Findings Only. Final Report to Follow Willis Dickerson M.D. Interventional Radiology Fellow, PGY-6 04/15/2019 1:11 PM REPORT OF PROCEDURE - ENDOSCOPY URL (01/06/2019 6:10 PM CDT) Narrative Performed At This result has an attachment that is no t available. Tissue Exam (01/06/2019 2:20 PM CDT) Pathologist Sig nature Case Report Surgical Pathology Report Case: [id number] I [facility] Authorizing Provider: Joe Hwang Collected: 01/06/[address] [facility] Ordering Location: [facility] Endoscopy Received: 01/07/2019 0815 Services Pathologist: Sheila Hamilton MD Specimen: Polyp, Colon - Rectosigmoid, TAKEN BY ESD, ON FOAM, EVALUATE MARGINS DIAGNOSIS A. RECTOSIGMOID COLON, POLYP, ENDOSCOPIC SUBMUCO JENY DISSECTION: [facility] Electronically signed - TUBULAR ADENOMA, 2.[address] [facility] by Joy, - NEGATIVE FOR HIGH-GRADE DYSPLASIA/ MALIGNANCY [facility] MD Sheila on - MARGINS, FREE OF ADENOMATOUS EPITHELIUM 01/12/2019 at 11:15 AM Signing Pathologist Direct Phone Line: [phone] CPT Code(s) [address] [facility] CLINICAL HISTORY Adenomatous polyp [facility] of sigmoid colon [facility] SPECIMEN SOURCE Polyp, [facility] colon-rectosigmoid, [facility] taken by ESD, on [facility] foam, evaluate margins GROSS DESCRIPTION Received in formalin labeled with the patient's name, accession number and "polyp, colon-rectosigmoid" is a 3.9 x 3.1 x 0.1 cm irregular portion of red-pink mucosa pinned to a piece of styrofoam. The damon [facility] rface of the mucosa displays an ill-defined, pink-maroon, raised Polyp measuring 2.0 x 1.7 x 0.3 cm. The polyp is 0.2 cm from the radial margin and abuts the deep margin. The specimen is serially secti [facility] oned and entirely submitted sequentially, one cross section in each cassette, in A1-A22, polyp in A2-A15. [facility] Ink code: Blue-radial margin, black-deep margin. CG/ew MICROSCOPIC Performed. [facility] Specimen Tissue - Polyp, Colon - Rectosigmoid Performing Organization Address City/State/Zipcode Phone Number [facility] [address] [place] [address] CENTER after 01/05/2019 Insurance Payer Benefit Plan / Subscriber ID Effective Dates Phone Addre ss Type Group AETNA - MGD AETNA HMO POS [id number] 2018-Present HMO/POS CARE QPOS CDC REVIEW CDC REVIEW [id number] 2019-[place] [address] [place] [address] [phone] (Work) Advance Directives For more information, please contact: [phone] Type Date Recorded Patient Auto Body Man Explanati on Advance Directives and Living 01/06/2019 12:00 AM Will Power of Ticket Dispatcher 01/06/2019 12:00 AM Code Status Date Activated Date Inactivated Comments Full Code 12/23/2019 11:29 AM 12/23/2019 7:11 PM This code status was determined by: Patient Full Code 12/16/2019 9:50 AM 12/16/2019 12:45 PM This code status was determined by: Patient Full Code 11/18/2019 11:24 AM 11/19/2019 7:23 PM This code status was determined by: Patient Full Code 08/11/2019 3:02 PM 08/11/2019 8:37 PM This code status was determined by: Patient Full Code 07/12/2019 5:46 PM 07/12/2019 9:21 PM This code status was determined by: Patient
--- OUTSIDE RECORDS SUMMARY | 2020-01-06 22:18 | XMS REPORT | Continuity of Care Document ---
:1955 Author Organization [facility] t Address [address] [place] [address] Care Team Providers Name Role Phone Irma Valles Primary Care Physician Mando Robb MD Attending Clinician MANDO ROBB Attending Clinician Unavailable Rohan Mercer RN Attending Clinician Unavailable Paolo Attending Clinician Unavailable SAVANA Attending Clinician Unavailable Savana DENG Attending Clinician Elisabet Macias MD Attending Clinician Sunil Monterroso MD Attending Clinician [phone] Felix Attending Clinician Unavailable Praveen Attending Clinician Unavailable Lorena Graves MD Attending Clinician Mary Ann Shahid MD Attending Clinician Unavailable Cesar Attending Clinician Unavailable Jaki Morales Attending Clinician Kvng Clark MD Attending Clinician Maureen WALLS Attending Clinician Unavailable Vimal RONDON Attending Clinician Unavailable Juan Tavares Attending Clinician Unavailable Helga Gibbs Attending Clinician Unavailable Wu Attending Clinician Unavailable Vitor RONDON Attending Clinician Unavailable Irma Valles Attending Clinician Megan DENG Attending Clinician Donald DENG Attending Clinician Kayla Reyes Attending Clinician Unavailable DYANA TURPIN Attending Clinician Unavailable Dyana Turpin MD Attending Clinician Jalil Whipple MD Attending Clinician Henny Tenorio CRNA Attending Clinician Reynold Ellison MD Attending Clinician Lalo Antony MD Attending Clinician CORNELIO LU Attending Clinician Unavailable DARREL MANNING Attending Clinician Unavailable LETHA MEADOWS Attending Clinician Unavailable MANDO ROBB Admitting Clinician Unavailable SUNIL MONTERROSO Admitting Clinician Unavailable DYANA TURPIN Admitting Clinician Unavailable DARREL MANNING Admitting Clinician Unavailable Payers Payer Name Policy Type Policy Number Effective Date Expiration Date Moriah trimble AETNA - MGD [id number] [address] [facility] CAREAETNA O 00:00:00 - Medical POS Center [id number] /POS [facility] REVIEWCDC [id number] [facility] [id number] 00:00:00 - Medica [place] 10/2019[place] [address] Problems Condition Condition Condition Status Onset Resolution Last Treating Co mments Source Name Details Category Date Date Treatment Clinician Date Spontaneou Spontaneou Disease Active [facility] - bacterial bacterial 00:00: Medi pablito peritoniti peritoniti 00 Ce nter s s Peritoniti Peritoniti Disease Active 2019- [facility] - 00:00: Medical 00 Center Hepatocell Hepatocell Disease Active [facility] ular ular 9-12 [facility] - carcinoma carcinoma 00:00: Medi pablito 00 Center Hepatocell Hepatocell Disease Active [address] ular ular -22 [facility] - carcinoma carcinoma 00:00: Medi pablito 00 Center Type II Type II Disease Active [facility] diabetes diabetes - [facility] - mellitus mellitus 00:00: Medica l 00 Center Pre-transp Pre-transp Disease Active 2019-[address] lant lant 3-20 [facility] - evaluation evaluation 00:00: t & Plan: Medical for for 00 She is an Center chronic chronic acceptabl liver liver e disease disease candidate for liver transplan t pending further imaging/t esting and official review at [facility]. Liver Liver Disease Active [facility] lesion lesion 3-20 [facility] - 00:00: t & Plan: Medical 00 1.6cm and Center 1.0 cm lesion seen on MRI 03/2018 consisten t with features of HCC confirmed upon radiologi pablito conferenc e review. Hepatolog y and oncology with coordinat e care/connie tment. Cancer Cancer Disease Active [facility] screening screening 03-17 Assessseth hauser - 00:00: t & Plan: Medical 00 Cirrhosis Center , regardles s of etiology, is a risk factor for developme nt of hepatocel lular carcinoma with an annual incidence of 1.5-4.5%. We recommend surveilla nce for HCC with abdominal imaging and alphafeto protein every 6 months. MRI and AFP are ordered . Chronic Chronic Disease Active [facility] hepatitis hepatitis 1-03 Assessseth Cristina ukes - C without C without 00:00: t & Plan: M edical hepatic hepatic 00 Continue Center coma coma follow up with hepatolog y for treatment options. Portal Portal Disease Active [facility] hypertensi hypertensi 1-03 [facility]men [facility] - on on 00:00: t & Plan: Medical 00 Portal Center hypertens ion with evidence by hypersple nism and ascites. Right Right Disease Active [facility] upper upper 1-03 [facility] - quadrant quadrant 00:00: t & Plan: Med ical abdominal abdominal [address] pain pain etiology. History of gallstone but no cholecyst itis. Possible etiology is chronic pancreati tis. We will get HIDA scan to assess for functiona l gallbladd er disorder. Immunity Immunity Disease Active Last [facility] t status status 1-03 Assessmen [facility] - [...] primary care provider. 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 First diagnosis was in 2011. Other Other Disease Active Last [facility] ascites ascites 03-11 Ass[facility]men [facility] - 00:00: t & Plan: Medical 00 Controlle Center d on spironola ctone 50 mg. Discussed with the patient 2 gram sodium-re stricted diet. Cirrhosis Cirrhosis Disease Active [facility] - 00:[facility]: t & Plan: Medical 00 Cirrhosis Center secondary to Hep C/ETOH/HC C. Continue follow up with hepatolog y as scheduled . Cholecysti Cholecysti Disease Active [facility] tis tis 05-19 [facility] - 00:00: Medical 00 Center Allergies, Adverse Reactions, Alerts Allergy Allergy Status Severity Reaction(s) Onset Inactive Treating Comm ents Source Name Type Date Date Clinician Sulfa Drug Active Swelling TONGUE [facility] (Sulfona Allergy 05-19 SWELLING [facility] - mide 00:00: Medical Antibiot 00 Center ics) Family History Family Member Diagnosis Comments Start Date Stop Date Source Natural father COPD [facility] Natural father Heart disease [facility] Natural mother Heart disease [facility] Social History Social Habit Start Date Stop Date Quantity Comments Source History [facility] - Alcohol Std Drinks Medica l Center History [facility] - Alcohol Binge Medical [facility] [facility] Sex Assigned At F [facility] Medical [place] Tobacco use and 2020-01-06 2020-01-06 Never used [facility] - exposure 00:00:00 00:00:00 Medical Center Alcohol intake 2020-01-06 2020-01-06 Current [facility] - 00:00:00 00:00:00 non-drinker of Medical Ce nter alcohol (finding) Alcohol Comment 2019-10-28 2019-10-28 NONE SINCE [facility] - 00:00:00 00:00:March Medical Cent er History SDOH 2018-08-30 2018-08-30 1 [facility] - Alcohol Frequency 00:00:00 00:00:00 Medical Center History of tobacco 2018-05-29 [facility] sm[facility] - use 00:00:00 [facility] Center Smoking Status Start Date Stop Date Source Former smoker 2020-01-06 00:00:00 2020-01-06 00:00:[address] [facility] Center Medications Ordered Filled Start Stop Current Ordering Indication Dosage Frequency Signature Comments Components Source Medication Medication Date Date Medication? Clinician (SIG) Name Name carvedilol 2019-03 Yes 3.125mg QD Take 3.[address] [facility] (COREG) 0-30 mg by [facility]ukes - 3.125 MG 08:22: mouth Medical tablet 59 daily . [place] escitalopra 2019-03 Yes Cancer 20mg QD Take [address] m oxalate 0-30 screening by mouth L ukes - (LEXAPRO) 08:22: daily. Medica l 20 MG 59 Center tablet ursodiol 2019-03 Yes Cancer 300mg QD Take [address] (ACTIGALL) 0-30 screening mg by Mahnaz es - 300 mg 08:22: mouth Medical capsule 59 daily . [place] omeprazole 2019-03 Yes Cancer 40mg QD Take [address] (PRILOSEC) 0-30 screening by mouth [facility] - 40 MG 08:22: daily. Medical capsule 59 Center colestipol 2019-03 Yes 5g Take [address] (COLESTID) 0-30 by mouth [facility] - 5 gram 08:22: as needed Medica l granules 59 (FOR Center ITCHING). empaglifloz 2019-03 Yes 10mg QD Take [address] in 0-30 by mouth [facility] - (JARDIANCE) 08:22: daily. Medi pablito 10 mg 59 Center tablet levothyroxi 2019-03 Yes 137ug Take [address] ne 0-30 mcg by [facility]ukes - (SYNTHROID, 08:22: mouth Medic al LEVOTHROID) 59 Every Center 137 MCG morning on tablet an empty stomach. insulin 2019-03 Yes 20U QD Inject 20 [facility] aspart 0-30 Units [facility]ukes - protamine-i 08:22: subcutaneo Medical nsulin 59 usly every Center aspart morning. (NOVOLOG MIX 70-30 U-100 INSULN) 100 unit/mL (70-30) Soln injection insulin 2019-03 Yes 14U QD Inject 14 [facility] aspart 0-30 Units [facility]ukes - protamine-i 08:22: subcutaneo Medical nsulin 59 usly every Center aspart evening. (NOVOLOG MIX 70/30) 100 unit/mL (70-30) Soln injection melatonin 3 2019-03 Yes QD Take by [facility] mg Tab 0-30 mouth [facility] - tablet 08:22: nightly. Medical 59 Center cholecalcif 2019-03 Yes 5000U QD Take 5,[address] markus, 0-30 Units by Rosakes - vitamin D3, 08:22: mouth Medic al (VITAMIN D3 59 daily. Center ORAL) Missing or 2019-03 Yes 1{tbl} QD Take [address] Non-Formula 0-30 tablet by Mahnaz es - ry 08:22: mouth Medical Medication 59 daily. Center Missing or 2019-03 Yes 1{tbl} Q.5D Take [address] Non-Formula 0-30 tablet by Mahnaz es - ry 08:22: mouth 2 Medical Medication 59 (two) Center times daily. lidocaine 2020- No 2{patch Q24H Place [address] (LIDODERM) 11-26 10-20 } patches [facility]ukes - 5 % patch 00:00: 23:59 onto the Med ical 00 :00 skin daily Center for 30 days Remove & Discard patch within 12 hours or as directed by MD. traMADoL Yes Cancer 50mg Take 1 [facility] (ULTRAM) 50 11-18 screening tablet (50 [facility] - mg tablet 00:00: mg total) Med ical 00 by mouth Center as needed for Pain. levoFLOXaci 2019-0 2020- No 500mg QD Take [address] n 11-18- tablet [facility]ukes - (LEVAQUIN) 00:00: 00:00 (500 mg Med ical 500 MG 00 :00 total) by Center tablet mouth daily for 4 days. HYDROcodone 2019-0 2020- No 1{tbl} Take [address] -acetaminop 11-18-20 tablet by Rosa owens (NORCO 00:00: 00:00 mouth Medic al 5-325) 00 :00 every 6 Center 5-325 mg (six) per tablet hours as needed for Pain for up to 4 days. Max Daily Amount: 4 tablets insulin 2019-0 2020- No 20U Inject [address] lispro 11-17 09-11 Units [facility]ukes - protamin-li 07:05: 00:00 subcutaneo Medical spro 48 :00 usly once Center (HUMALOG in 75-25) 100 morning. unit/mL (75-25) InPn injection insulin 2019- No 14U QD Inject [address] lispro 11-17 09-11 Units [facility]ukes - protamin-li 07:05: 00:00 [facility] spro 21 :00 usly Center (HUMALOG nightly. 75-25) 100 unit/mL (75-25) InPn injection gabapentin 2019- No 600mg Q.5D Take [address] (NEURONTIN) 11-17 09-11 mg by [facility] - 600 MG 07:00: 00:00 mouth 2 Medical tablet 48 :00 (two) Center times daily. traMADoL 2019- No Cancer 50mg Take [address] (ULTRAM) 50 11-14 screening tablet (50 [facility] - mg tablet 00:00: 00:00 mg total) Me dical 00 :00 by mouth Center as needed for Pain. spironolact 2020- Yes Other 200mg QD Take [address] one 10-23 ascites tablets [facility]ukes - (ALDACTONE) 00:00: 23:59 (200 mg Me dical 100 MG 00 :00 total) by Center tablet mouth daily. furosemide 2020- Yes Other 80mg QD Take [address] (LASIX) 40 10-23 ascites tablets Rosa kes - MG tablet 00:00: 23:59 (80 mg Medic al 00 :00 total) by Center mouth daily. traMADoL 2019- No Cancer 50mg Take [address] [facility] (ULTRAM) 50 10-23 screening tablet (50 [facility] - mg tablet 00:00: 00:00 mg total) Me dical 00 :00 by mouth Center as needed for Pain. traMADol 2019- No Cancer 50mg Take [address] (ULTRAM) 50 10-18 screening by mouth [facility] - mg tablet 12:06: 00:00 as needed Me dical 15 :00 for Pain. Center insulin 2019- No 20U Inject [address] lispro 10-1812 Units [facility]ukes - protamin/li 10:57: 00:00 subcutaneo Medical spro 51 :00 usly daily Center (HUMALOG with MIX 75-25 breakfast SUBQ) . insulin 2019- No 18U QD Inject [address] lispro 10-18-12 Units [facility]ukes - protamin-li 10:57: 00:00 [facility] spro 51 :00 usly Center (HUMALOG nightly. 75-25) 100 unit/mL (75-25) InPn injection furosemide 2019- No Other 80mg QD Take [address] (LASIX) 40 8-17 ascites tablets Rosa kes - MG tablet 00:00: 00:00 (80 mg Medic al 00 :00 total) by Center mouth daily. spironolact 2019- No Other 200mg QD Take [address] one 10-18-17 ascites tablets [facility]ukes - (ALDACTONE) 00:00: 00:00 (200 mg Me dical 100 MG 00 :00 total) by Center tablet mouth daily. traMADoL 2019- No Cancer 50mg Take [address] [facility] (ULTRAM) 50 10-18 screening tablet (50 [facility] - mg tablet 00:00: 00:00 mg total) Me dical 00 :00 by mouth Center as needed for Pain. furosemide 2019- No Other 40mg Q.5D Take [address] (LASIX) 40 7-12 ascites tablet (40 [facility] - MG tablet 00:00: 00:00 mg total) Me dical 00 :00 by mouth 2 Center (two) times daily. spironolact 2019- No Other 100mg QD Take [address] one -12 14-12 ascites tablets [facility]ukes - (ALDACTONE) 00:00: 00:00 (100 mg Me dical 50 MG 00 :00 total) by Center tablet mouth daily. OXcarbazepi 2019- Yes 150mg Q.5D Take [address] ne 5-21 mg by [facility]ukes - (TRILEPTAL) 00:00: mouth 2 Med ical 150 MG 00 (two) Center tablet times daily 1 tab in AM2 tabs in PM. topiramate 2018-03- No TAKE [address] [facility] (TOPAMAX) 2-01 15-11 TABLET BY Raf s - 50 MG 00:00: 00:00 MOUTH Medical tablet 00 :00 TWICE A Center DAY IF TOLERATED furosemide 2019- No Peripheral 40mg QD Take [address] (LASIX) 40 5-24 05-23 edema tablet (40 L ukes - MG tablet 00:00: 23:59 mg total) Me dical 00 :00 by mouth Center daily. spironolact 2019- No Peripheral 100mg QD Take [address] one 5-22 05-21 edema tablets [facility]ukes - (ALDACTONE) 00:00: 23:59 (100 mg Me dical 50 MG 00 :00 total) by Center tablet mouth daily. lipase-prot 2017-03 Yes 1{capsu Q.5D Take [address] ease-amylas 2-01 le} capsule by Rosa cadena (ZENPEP) 00:00: mouth 2 Medi pablito 40,000-126, 00 (two) Center 000- times 168,000 daily . unit CpDR gabapentin 2017-03 2020- No 600mg Q.5D Take [address] (NEURONTIN) 1 08-12 mg by [facility] - 600 MG 00:00: 00:00 mouth 2 Medical tablet 00 :00 (two) Center times daily . Vital Signs Vital Name Observation Time Observation Value Comments Source Systolic blood 2020-01-06 11:51:00 129 mm[Hg] [facility] Diastolic blood 2020-01-06 11:51:00 54 mm[Hg] [facility] Heart rate 2020-01-06 11:51:00 80 /min [facility] Body temperature 2020-01-06 11:51:00 36.61 Regine [facility] Respiratory rate 2020-01-06 11:51:00 17 /min [facility] Oxygen saturation in 2020-01-06 11:51:00 100 /min [facility] Arterial blood by Medical Ce nter Pulse oximetry Body height 2019-11-23 14:36:00 162.6 cm [facility] Body weight 2019-11-23 14:36:00 84.687 kg [facility] BMI 2019-11-23 14:36:00 32.03 kg/m2 [facility] Procedures Procedure Date / Time Performing Clinician Source Performed MR ABDOMEN WITH & WITHOUT 2020-01-06 13:45:[address] [facility] IV CONTRAST [facility] Center CT CHEST WITHOUT IV 2020-01-06 12:40:00 Peggy Robb [facility] US PARACENTESIS 2020-01-06 11:20:00 Peggy Robb [facility] BODY FLUID CELL COUNT WITH 2020-01-06 10:14:00 Peggy Robb [facility] US PARACENTESIS 2019-12-30 09:49:00 Peggy Robb [facility] BODY FLUID CELL COUNT WITH 2019-12-30 09:13:00 Peggy Robb [facility] PROTHROMBIN TIME/INR 2019-12-30 07:58:00 [facility] APTT 2019-12-30 07:58:00 [facility] CBC W/PLT COUNT & AUTO 2019-12-30 07:58:00 [facility] US PARACENTESIS 2019-12-23 09:47:00 Peggy Robb [facility] BODY FLUID CELL COUNT WITH 2019-12-23 09:20:00 Peggy Robb [facility] US PARACENTESIS 2019-12-16 10:03:00 Peggy Robb [facility] BODY FLUID CELL COUNT WITH 2019-12-16 09:49:00 Peggy Robb [facility] US PARACENTESIS 2019-12-09 09:34:00 Peggy Robb [facility] BODY FLUID CELL COUNT WITH 2019-12-09 09:09:00 Peggy Robb [facility] POCT-GLUCOSE METER 2019-11-27 11:51:00 Aidan Macias [facility] POCT-GLUCOSE METER 2019-11-27 07:37:00 [facility]ER 2019-11-26 21:30:00 Gilberto, [facility] POCT-GLUCOSE METER 2019-11-26 16:14:00 Gilberto, [facility] POCT-GLUCOSE METER 2019-11-26 10:52:00 Gilberto [facility] POCT-GLUCOSE METER 2019-11-26 08:00:00 Gilberto [facility] COMPREHENSIVE METABOLIC 2019-11-26 04:32:00 Gilberto [facility] PROTHROMBIN TIME/INR 2019-11-26 04:32:00 Timothy Presley [facility] CBC W/PLT COUNT & AUTO 2019-11-26 04:32:00 Timothy Presley [facility] POCT-GLUCOSE METER 2019-11-25 22:31:00 Gilberto [facility] POCT-GLUCOSE METER 2019-11-25 16:38:00 Gilberto [facility] POCT-GLUCOSE METER 2019-11-25 11:44:00 Gilberto [facility] POCT-GLUCOSE METER 2019-11-25 08:26:00 Gilberto [facility] COMPREHENSIVE METABOLIC 2019-11-25 04:52:00 Gilberto [facility] POCT-GLUCOSE METER 2019-11-24 20:38:00 Gilberto [facility] POCT-GLUCOSE METER 2019-11-24 17:25:00 Gilberto [facility] US PARACENTESIS 2019-11-24 16:37:00 Robin Carreno [facility] BODY FLUID CELL COUNT WITH 2019-11-24 16:28:[address] [facility] [place] GLUCOSE PERITONEAL FLUID 2019-11-24 16:17:00 Naty Carreno [facility] BODY FLUID CULTURE + GRAM 2019-11-24 16:17:00 Max Carreno [facility] PROTHROMBIN TIME/INR 2019-11-24 09:54:00 [facility] & 2019-11-24 09:51:[address] [facility] REF [facility]) [facility] POCT-GLUCOSE METER 2019-11-24 07:36:00 Aidan Macias [facility] COMPREHENSIVE METABOLIC 2019-11-24 06:08:00 Aidan Macias [facility] POCT-GLUCOSE METER 2019-11-23 23:45:00 Gilberto [facility] POCT-GLUCOSE METER 2019-11-23 20:13:00 [facility] URINALYSIS W/ REFLEX URINE 2019-11-23 16:24:00 Robin Carreno [facility] COMPREHENSIVE METABOLIC 2019-11-23 15:55:00 Aidan Macias [facility] CBC W/PLT COUNT & AUTO 2019-11-23 15:55:00 Aidan Macias [facility] BLOOD CULTURE 2019-11-23 15:54:00 Robin Carreno [facility] BODY FLUID CELL COUNT WITH 2019-11-22 17:45:00 Peggy Robb [facility] BODY FLUID CULTURE + GRAM 2019-11-22 17:45:00 Gilberto, Mrinalin i [facility] US PARACENTESIS 2019-11-22 17:30:00 Peggy Robb [facility] POCT-GLUCOSE METER 2019-11-19 16:44:00 Savana [facility] POCT-GLUCOSE METER 2019-11-19 11:14:00 Savana [facility] POCT-GLUCOSE METER 2019-11-19 07:44:00 Savana [facility] CBC (HEMOGRAM ONLY) 2019-11-19 04:37:00 Savana [facility] COMPREHENSIVE METABOLIC 2019-11-19 04:37:00 [facility] POCT-GLUCOSE METER 2019-11-18 22:35:00 Savana [facility] POCT-GLUCOSE METER 2019-11-18 18:02:00 Savana [facility] POCT-GLUCOSE METER 2019-11-18 11:23:00 Peggy Robb [facility] CT RFA TUMOR ABLATION 2019-11-18 11:01:00 Peggy Robb [facility] US UNSPECIFIC GUIDANCE 2019-11-18 11:00:00 Randy Radford [facility] PROCEDURE DONE OUTSIDE OR 2019-11-18 08:00:00 Virtual, Surgeon C [facility] PROTHROMBIN TIME/INR 2019-11-18 07:27:00 Joellen Cuellar [facility] APTT 2019-11-18 07:27:00 Joellen Cuellar [facility] BASIC METABOLIC PANEL (7) 2019-11-18 07:27:00 Joellen Cuellar [facility] CBC W/PLT COUNT & AUTO 2019-11-18 07:27:00 Joellen Cuellar [facility] ECG 12-LEAD 2019-11-18 06:58:05 Unknown, Hl7 Doctor [facility] SARS-COV2/RT-PCR ([facility] & 2019-11-15 10:04:[address] [facility] REF LABS) Medical [place] US PARACENTESIS 2019-11-11 09:35:00 Peggy Robb [facility] BODY FLUID CELL COUNT WITH 2019-11-11 08:44:00 Peggy Robb [facility] CYTOLOGY 2019-11-11 08:21:00 Peggy Robb [facility] US PARACENTESIS 2019-11-01 09:45:00 Peggy Robb [facility] BODY FLUID CELL COUNT WITH 2019-11-01 09:41:00 Peggy Robb [facility] BODY FLUID CELL COUNT WITH 2019-10-19 16:13:00 Peggy Robb [facility] US PARACENTESIS 2019-10-19 15:51:00 Peggy Robb [facility] PT/APTT 2019-10-19 12:04:00 Peggy Robb [facility] CBC W/PLT COUNT & AUTO 2019-10-19 12:04:00 Peggy Robb [facility] NM BONE SCAN WHOLE BODY 2019-10-07 13:53:00 Peggy Robb [facility] ALPHA FETOPROTEIN (AFP), 2019-10-07 12:17:[address] [facility] TUMOR MARKER [facility] BASIC METABOLIC PANEL (7) 2019-10-07 12:17:00 Peggy Robb [facility] HEPATIC FUNCTION PANEL 2019-10-07 12:17:00 Peggy Robb [facility] CBC W/PLT COUNT & AUTO 2019-10-07 12:17:00 Peggy Robb [facility] MR ABDOMEN WITH & WITHOUT 2019-10-07 11:35:[address] [facility] IV CONTRAST [facility] Center CT CHEST WITHOUT IV 2019-10-07 10:47:00 Peggy Robb [facility] NM TUMOR LOCALIZATION 2019-08-11 15:37:00 Peggy Robb [facility] NM Y90 MICROSPHERES 2019-08-11 15:36:00 Peggy Robb [facility] IR VISCERAL ARTERIOGRAM 2019-08-11 14:40:00 Peggy Robb [facility] NM TUMOR LOCALIZATION 2019-08-11 12:40:[address] [facility] IR EMBOLIZATION ARTERIAL 2019-08-11 11:26:00 Peggy Robb [facility] PROTHROMBIN TIME/INR 2019-08-11 07:36:00 Joellen Cuellar [facility] APTT 2019-08-11 07:36:00 Joellen Cuellar [facility] COMPREHENSIVE METABOLIC 2019-08-11 07:36:[address] [facility] BILIRUBIN, DIRECT 2019-08-11 07:36:00 Joellen Cuellar [facility] CBC W/PLT COUNT & AUTO 2019-08-11 07:36:00 Joellen Cuellar [facility] NM TUMOR LOCALIZATION 2019-07-12 17:46:00 Peggy Robb [facility] IR VISCERAL ARTERIOGRAM 2019-07-12 16:00:00 Peggy Robb [facility] PROTHROMBIN TIME/INR 2019-07-12 09:35:00 Joellen Cuellar [facility] APTT 2019-07-12 09:35:00 Joellen Cuellar [facility] COMPREHENSIVE METABOLIC 2019-07-12 09:35:[address] [facility] BILIRUBIN, DIRECT 2019-07-12 09:35:00 [facility] CBC W/PLT COUNT & AUTO 2019-07-12 09:35:00 Joellen Cuellar [facility] ALPHA FETOPROTEIN (AFP), 2019-05-27 11:23:[address] [facility] TUMOR MARKER [facility] BASIC METABOLIC PANEL (7) 2019-05-27 11:23:00 Peggy Robb [facility] HEPATIC FUNCTION PANEL 2019-05-27 11:23:00 Sa Rosalbaira Mando [facility] PROTHROMBIN TIME/INR 2019-05-27 11:23:00 Peggy Robb [facility] CBC W/PLT COUNT & AUTO 2019-05-27 11:23:00 Peggy Robb [facility] CT CHEST WITHOUT IV 2019-05-27 11:00:00 Peggy Robb [facility] MR ABDOMEN WITH & WITHOUT 2019-05-27 10:23:00 [facility] IV CONTRAST [facility] POCT-CREATININE 2019-05-27 09:55:00 Rosalba [facility] CT ABDOMEN WITHOUT IV 2019-04-15 13:46:00 Randy Radford [facility] IR EMBOLIZATION ARTERIAL 2019-04-15 13:21:00 Peggy Robb [facility] INSERT PERIPHERAL IV 2019-04-15 13:11:01 Hayden [facility] PROTHROMBIN TIME/INR 2019-04-15 08:45:00 [facility] APTT 2019-04-15 08:45:00 Hayden [facility] COMPREHENSIVE METABOLIC 2019-04-15 08:45:[address] [facility] CBC W/PLT COUNT & AUTO 2019-04-15 08:45:00 Elaine Blake [facility] CT CHEST WITHOUT IV 2019-02-23 11:45:00 Peggy Robb [facility] NM BONE SCAN WHOLE BODY 2019-02-11 14:11:00 Peggy Robb [facility] MR ABDOMEN WITH & WITHOUT 2019-02-11 11:42:[address] [facility] IV CONTRAST [facility] POCT-CREATININE 2019-02-11 10:51:00 Peggy Robb [facility] ALPHA FETOPROTEIN (AFP), 2019-02-11 10:25:[address] [facility] TUMOR MARKER [facility] BASIC METABOLIC PANEL (7) 2019-02-11 10:25:00 Peggy Robb [facility] HEPATIC FUNCTION PANEL 2019-02-11 10:25:00 Peggy Robb [facility] PROTHROMBIN TIME/INR 2019-02-11 10:25:00 Peggy Robb [facility] CBC W/PLT COUNT & AUTO 2019-02-11 10:25:00 Peggy Robb [facility] REPORT OF PROCEDURE - 2019-01-06 18:10:22 Joe Turpin [facility] - ENDOSCOPY URL [facility] TISSUE EXAM 2019-01-06 14:20:[address] [facility] COLONOSCOPY,SUBMUCOSAL 2019-01-06 13:45:00 [facility] Turpin [facility] RESECTION [facility] COLONOSCOPY,SUBMUCOSAL 2019-01-06 13:45:00 Joe Turpin [facility] INJECTION [facility] POCT-GLUCOSE METER 2019-01-06 11:35:00 Joe Turpin [facility] Plan of Care Planned Activity Planned Date Details Comments Source Future Scheduled 2020-05-[address] [facility] Test 00:00:00 malignant neoplasm of [facility] Center breast (procedure) [code = 803618958] Future Scheduled 2020-04-29 Urine screening for [facility] - Test 00:00:00 protein (procedure) Medical Center [code = 024804210] Future Scheduled 2019-11-08 INFLUENZA VACCINE (#1) [facility] 00:00:00 [code = INFLUENZA Medical Ce nter VACCINE (#1)] Future Scheduled 2018 PNEUMOCOCCAL 65+ YRS [facility] - Test 00:00:00 (1 of 1 - Medical Center [id number] PCV13) [code = PNEUMOCOCCAL 65+ YRS (1 of 1 - [id number] PCV13)] Future Scheduled 2018-08-[address] [facility] - Test 00:00:00 measurement [facility] Center (procedure) [code = 63901480] Future Scheduled 1963-10-19 DIABETIC EYE EXAM [facility] - Test 00:00:00 [code = DIABETIC EYE Medical Center EXAM] Future Scheduled 1963-10-[address] [facility] - Test 00:00:00 examination [facility] Center (regime/therapy) [code = 878420987] Future Scheduled [address] [facility] - Test 00:00:00 malignant neoplasm of [facility] colon (procedure) [code = 718161134] Encounters Start End Encounter Admission Attending Care Care Encounter Source Date/Time Date/Time Type Type Clinicians Facility Department ID 2019-05-19 2019-05-19 Office FABIAN Guzman [id number] 08:32:11 10:27:15 Visit Zack Lopez 350.1.13.21 0.2.7.2.686 [id number] 2019-04-29 2019-04-29 Office RAIZA Bennett [id number] 09:48:52 10:51:32 Visit Kiara AMBULATOR 350.1.13.21 Y 0.2.7.2.686 [id number] 2018-12-24 2018-12-24 Office RAIZA Bennett [id number] 07:55:55 09:05:32 Visit Kiara AMBULATOR 350.1.13.21 Y 0.2.7.2.686 [id number] 2018-11-03 2018-11-03 Office RAIZA Ellison [id number] 11:59:08 12:29:08 Visit Evan AMBULATOR 350.1.13.21 Reynold Y 0.2.7.2.686 [id number] 2018-11-03 2018-11-03 Office RAIZA Antony [id number] 11:04:33 11:46:04 Visit Jensen AMBULATOR 350.1.13.21 Lalo Y 0.2.7.2.686 [id number] Results Test Description Test Time Test Comments Results Result Comments Source Body fluid cell count with differential 2020-01-06 16:17:00 Test Item Value Reference Range Interpretation Comme nts Appearance (test code = 9335-1) Hazy Clear A Color (test code = 6824-7) Straw Colorless, Straw RBCs (test code = 56957-0) 160 <=1 /cu mm H Adjusted WBC Count (test code = 75966-4) 73 <=5 /cu mm H Lining Cells (test code = 55805-9) 21 <=1 /cu mm H % Segs (test code = 52644-1) 27 % % Lymphs (test code = 28667-1) 34 % % Monos (test code = 95098-5) 39 % % Eos (test code = 04768-9) 0 % % Baso (test code = 02434-5) 0 % Container Body Fluid (test code = 2873) Sterile Cup Lab Interpretation (test code = 09882-0) [facility]normal [facility] WITH [id number] 16:17:00 Test Item Value Reference Range Interpretation Comments APPEARANCE FLUID (BEAKER) (test Hazy Clear A code = 510) COLOR FLUID (BEAKER) (test code Straw Colorless, Straw = 511) RBC FLUID (BEAKER) (test code = 160 /cu mm <=1 H 513) ADJUSTED WBC FLUID (BEAKER) 73 /cu mm <=5 H (test code = 1691) LINING CELLS (BEAKER) (test code 21 /cu mm <=1 H = 1590) NEUTROPHILS FLUID (BEAKER) (test 27 % code = 1656) LYMPHS FLUID (BEAKER) (test code 34 % = 488) MONO/MACROPHAGE FLUID (BEAKER) 39 % (test code = 489) EOSINOPHILS FLUID (BEAKER) (test 0 % code = 491) BASO FLUID (BEAKER) (test code = 0 % 492) CONTAINER BODY FLUID (BEAKER) Sterile Cup (test code = 2873) MR, ABDOMEN, [id number] 15:37:00Referring: Dr. Najma Robledo [facility] : 1955 Sex: FFINAL REPORT TECHNIQUE: MRI of the abdomen WITHOUT and WITH intrav enous contrast. INDICATION: Liver lesion, > 1cm, US nondiagnostic. COMPARISON: MRIs dating back to 07/16/2018. FINDINGS: LOWER THORAX: Unremarkable. LIVER: Nodular, cirrhotic liver. Prior radial embolization of the right hepatic lobe with signs of fibrosis in the right hepatic lobe with relative sparing of segments V and . A majority of the disease in the right hepatic lobe has resolved. Specifically, the previous is seen nodular area of hyperenhancement in segment VII which measure 1.5 cm has resolved as has the previous is seen hepatocellular carcinoma in segment V (axial arterial phase image 54) Additional areas of treatment and/or residual are as follows:*A focus of arterial phase hyperenhancement that is nodular in segment VIII measures 0.5 cm on axial arterial phase image 27 and washesout, consistent with residual tumor, previously 1.2 cm.*Recent ablation of the segment IVb tumor without residual disease. LR-TR nonviable.*A focus of arterial phase hyperenhancement, washout, and pseudocapsule formation in segment III measures 1.3 cm on axial delayed phase image 48, unchanged. LI-RADS 5, OPTN 5. There is an area of ablation superior to this tumor.*A focus of arterial phase hyperenhancement without washout or pseudocapsule formation measures 1 cm on axial arterial phase image 73, previously 0.4 cm. LI-RADS 4*An area of washout without arterial phase hyperenhancement in segment V measures 0.7 cm on coronal postcontrast image 84. This is new. BILIARY: Multiple stones layer in the gallbladder. No biliary ductal dilatation or filling defect.SPLEEN: 16 cm splenomegaly.PANCREAS: No foca l masses or ductal dilatation. ADRENALS: No adrenal nodules.KIDNEYS/URETERS: No hydronephrosis or solid mass lesions. PERITONEUM/RETROPERITONEUM: No free fluid.LYMPH NODES: No lymphadenopathy.VESSELS: Conventional hepatic arterial anatomy. The main portal vein is patent and measures 1.4 cm in diameter. Retroaortic left renal vein. GI TRACT: No distention or wall thickening. BONES AND SOFT TISSUES: Mild compression deformity of superior endplate of L1. This enhances on postcontrast imaging, likely acute IMPRESSION: 1. Interval improvement of hepatocellular carcinoma after radio embolization and ablations as follow:- LR-TR viable disease in segment VIII which measures 0.5 cm, previously 1.2 cm.- LI-RADS 5, OPTN 5 disease in segment III measures 1.3 cm, unchanged. This is immediately inferior to an ablation bed.- Interval ablation of a segment IVb hepatocellular carcinoma without residual or recurrent disease. LR-TR nonviable- An arterially enhancing focus in segment V measures 1 cm, previously 0.4 cm. LI-RADS 4-A new area of washout in segment V measures 0.7 cm. LI-RADS 3 2. Cirrhosis with sequelae of portal hypertension including small volume ascites and splenomegaly. 3. Cholelithiasis without acute cholecystitis. 4. Mild, acute compression fracture of the superior endplate of L1. Signed: Jose D Roland rnort Verified Date/Time: 01/06/2020 15:37:27 MR abdomen without & with IV [id number] 15:37:00Interface, External Ris In - 01/06/2020 3:39 PM CDTFINAL REPORT TECHNIQUE: MRI of the abdomen WITHOUT and WITH intravenous contrast. INDICATION: Liver lesion, > 1cm, US nondia gnostic. COMPARISON: MRIs dating back to 07/16/2018. FINDINGS: LOWER THORAX: Unremarkable. LIVER: Nodular, cirrhotic liver. Prior radial embolization of the right hepatic lobe with signs of fibrosis inthe right hepatic lobe with relative sparing of segments V and . A majority of the disease in the right hepatic lobe has resolved. Specifically, the previous is seen nodular area of hyperenhancement in segment VII which measure 1.5 cm has resolved as has the previous is seen hepatocellular carcinomain segment V (axial arterial phase image 54) Additional areas of treatment and/or residual are as follows:*A focus of arterial phase hyperenhancement that is nodular in segment VIII measures 0.5 cm on axial arterial phase image 27 and washes out, consistent with residual tumor, previously 1.2 cm.*Recent ablation of the segment IVb tumor without residual disease. LR-TR nonviable.*A focus of arterial phase hyperenhancement, washout, and pseudocapsule formation in segment III measures 1.3 cm on axial de layed phase image 48, unchanged. LI-RADS 5, OPTN 5. There is an area of ablation superior to this tumor.*A focus of arterial phase hyperenhancement without washout or pseudocapsule formation measures 1cm on axial arterial phase image 73, previously 0.4 cm. LI-RADS 4*An area of washout without arterial phase hyperenhancement in segment V measures 0.7 cm on coronal postcontrast image 84. This is new. BILIARY: Multiple stones layer in the gallbladder. No biliary ductal dilatation or filling defect.SPLEEN: 16 cm splenomegaly.PANCREAS: No focal masses or ductal dilatation. ADRENALS: No adrenal nodules.KIDNEYS/URETERS: No hydronephrosis or solid mass lesions. PERITONEUM/RETROPERITONEUM: No free fluid.LYMPH NODES: No lymphadenopathy.VESSELS: Conventional hepatic arterial anatomy. The main portal vein is patent and measures 1.4 cm in diameter. Retroaortic left renal vein. GI TRACT: No distention or wall thickening. BONES AND SOFT TISSUES: Mild compression deformity of superior endplate of L1. This enhances on postcontrast imaging, likely acute IMPRESSION: 1. Interval improvement of hepatocellular carcinoma after radio embolization and ablations as follow:- LR-TR viable disease in segment VIII which measures 0.5 cm, previously 1.2 cm.- LI-RADS 5, OPTN 5 disease in segment III measures 1.3 cm, unchanged. This is immediately inferior to an ablation bed.- Interval ablation of a segment IVb hepatocellular carcinoma without residual or recurrent disease. LR-TR nonviable- An arterially enhancing focusin segment V measures 1 cm, previously 0.4 cm. LI-RADS 4-A new area of washout in segment V measures0.7 cm. LI-RADS 3 2. Cirrhosis with sequelae of portal hypertension including small volume ascites and splenomegaly. 3. Cholelithiasis without acute cholecystitis. 4. Mild, acute compression fracture of the superior endplate of L1. Signed: Jose D Pichardo MDReport Verified Date/Time: 01/06/2020 15:37:27 [facility] [id number] 14:49:00Referring: Dr. Najma Broderick [facility] 1955 Sex: FFINAL REPORT TECHNIQUE: CT scan of the chest WITHOUT intravenous c ontrast. Dose modulation, iterative reconstruction, and/or weight-based adjustment of the mA/kV was utilized to reduce the radiation dose to as low as reasonably achievable. INDICATION: Unlisted Reasonfor Exam. COMPARISON: Chest CT from 10/07/2019. FINDINGS: ABSENCE OF INTRAVENOUS CONTRAST DECREASESSENSITIVITY FOR DETECTION OF FOCAL LESIONS AND VASCULAR PATHOLOGY. LINES/TUBES: There are minimal fibrotic changes in the right lateral lower lung. LUNGS AND AIRWAYS: A calcified adenoma in the right upper lung measures 0.2 cm. PLEURA: The pleural spaces are clear. HEART AND MEDIASTINUM: The visualized thyroid gland is normal. No significant mediastinal, hilar, or axillary lymphadenopathy. The heart and pericardium are within normal limits. The fluid and the heart is lower density than myocardial, consistent with anemia. Mild calcification of the left anterior descending coronary artery. SOFT TISSUES AND BONES: Moderate degenerative changes of the glenohumeral joints. Moderate degenerative disc changes of the lower cervical spine. Mild compression deformity the superior endplate of L1 is new withmild retropulsion. UPPER ABDOMEN: The upper abdomen was better evaluated on the MRI obtained from the same day. Nodular, cirrhotic liver with posttreatment changes. Cholelithiasis. Small volume upper abdominal ascites. IMPRESSION: 1.No metastatic disease in the chest. 2.New mild compression of the superior endplate of L1 with mild retropulsion. Signed: Jose D Pichardo MDRort Verified Date/Time: 01/06/2020 14:49:26 CT chest without IV [id number] 14:49:00Interface, External Ris In - 01/06/2020 2:51 PM CDTFINAL REPORT TECHNIQUE: CT scan of the chest WITHOUT intravenous contrast. Dose modulation, iterative reconstruction, and/or weight-based adjustment of the mA/kV was utilized to reduce the radiation dose to as low as reasonably achievable. INDICATION: Unlisted Reason for Exam. COMPARISON: Chest CT from 10/07/2019. FINDINGS: ABSENCE OF INTRAVENOUS CONTRAST DECREASES SENSITIVITY FOR DETECTION OF FOCAL LESIONS AND VASCULAR PATHOLOGY. LINES/TUBES: There are minimal fibrotic changes in the right lateral lower lung. LUNGS AND AIRWAYS: A calcified adenoma in the right upper lung measures 0.2 cm. PLEURA: The pleural spaces are clear. HEART AND MEDIASTINUM: The visualized thyroid gland is normal. No significant mediastinal, hilar,or axillary lymphadenopathy. The heart and pericardium are within normal limits. The fluid and the heart is lower density than myocardial, consistent with anemia. Mild calcification of the left anterior descending coronary artery. SOFT TISSUES AND BONES: Moderate degenerative changes of the glenohumeral joints. Moderate degenerative disc changes of the lower cervical spine. Mild compression deformitythe superior endplate of L1 is new with mild retropulsion. UPPER ABDOMEN: The upper abdomen was better evaluated on the MRI obtained from the same day. Nodular, cirrhotic liver with posttreatment changes. Cholelithiasis. Small volume upper abdominal ascites. IMPRESSION: 1.No metastatic disease in thechest. 2.New mild compression of the superior endplate of L1 with mild retropulsion. Signed: Jose D Pichardothe [facility] of [facility] [place] Verified Date/Time: 01/06/2020 14:49:26 [facility], [id number] 13:56:00Referring: Dr. Najma Sultanainishayder 200 mL of albumin 25% (50 grams) IV x1 after paracentesis if 3 or more liters removed.Send ascitic fluid for cell count and differential.Labs to be ordered:->Other (please add comment)cell count diffReason for Exam:->HCC, ASCITIS [facility] : 1955 Sex: FFINAL REPORT Ultrasound guided paracentesis Clinical History: Asc ites. Sedation: None. Police Captain Senior: Elaine Blake PA-C Supervising Physician: Karina Conner MD [employer] Viewer: None. Estimated Blood Loss: < 1 mL. Specimen: 7500 mL of clear yellow fluid, samples sent to laboratory. Technique: Informed consent was obtained. The risks of pain, bleeding, infection, bowel perforation, injury to adjacent structures, and adverse medication reactions were discussed with the patient. After informed consent was obtained, the patient's abdomen was scanned. The right lower quadrant of the abdomen was selected for paracentesis. After the largest fluidpocket area was marked, and the anterior abdominal wall was evaluated with color Doppler to exclude presence of blood vessels traversing the area, the skin was prepped and draped in the usual sterile manner. After local anesthesia was achieved with lidocaine, a 5 Nepalese one-step catheter was advancedinto the peritoneal cavity under ultrasound guidance. After completion of drainage, the catheter was removed. There was no evidence of complication. Impression:Successful ultrasound guided paracentesis. Signed: Karina Conner Verified Date/Time: 01/06/2020 13:56:08 Reading Location: [address] Ultrasound Reading Room Ultrasound [id number] 13:56:00Interface, External Ris In - 01/06/2020 1:58 PM CDTFINAL REPORT Ultrasound guided paracentesis Clinical History: Ascites. Sedation: None. Police Captain Senior: Elaine de los santos PA-C Supervising Physician: Karina Conner MD Metal [employer] Viewer: None. Estimated Blood Loss: < 1mL. Specimen: 7500 mL of clear yellow fluid, samples sent to laboratory. Technique: Informed consent was obtained. The risks of pain, bleeding, infection, bowel perforation, injury to adjacent structures, and adverse medication reactions were discussed with the patient. After informed consent was obtained, the patient's abdomen was scanned. The right lower quadrant of the abdomen was selected for paracentesis. After the largest fluid pocket area was marked, and the anterior abdominal wall was evaluated with color Doppler to exclude presence of blood vessels traversing the area, the skin was prepped and draped in the usual sterile manner. After local anesthesia was achieved with lidocaine, a5 Nepalese one-step catheter was advanced into the peritoneal cavity under ultrasound guidance. After completion of drainage, the catheter was removed. There was no evidence of complication. Impression:[place] ccessful ultrasound guided paracentesis. Signed: Karina Conner MDReport Verified Date/Time: 01/06/2020 13:56:08 Reading Location: [address] Ultrasound Reading Room [facility], [id number] 20:17:00Referring: Dr. Najma Skelton 200 mL of albumin 25% (50 grams) IV x1 after paracentesis if 3 or more liters removed.Send ascitic fluid for cell count and differential.Labs to be ordered:->Other (please add comment)cell count and diffReason for Exam:->HCC, ASCITIS [facility] : 1955 Sex: FFINAL REPORT Ultrasound guided paracentesis Clinical History: Asc ites. Sedation: None. Police Captain Senior: Elaine Blake PA-C Supervising Physician: Andre Frederick MD [employer] Viewer: None. Estimated Blood Loss: < 1 mL. Specimen: 7400 mL of clear yellowfluid, samples sent to laboratory. Technique: Informed consent was obtained. The risks of pain, ble eding, infection, bowel perforation, injury to adjacent structures, and adverse medication reactionswere discussed with the patient. After informed consent was obtained, the patient's abdomen was scanned. The right lower quadrant of the abdomen was selected for paracentesis. After the largest fluid pocket area was marked, and the anterior abdominal wall was evaluated with color Doppler to exclude presence of blood vessels traversing the area, the skin was prepped and draped in the usual sterilemanner. After local anesthesia was achieved with lidocaine, a 5 Nepalese one-step catheter was advanced into the peritoneal cavity under ultrasound guidance. After completion of drainage, the catheter was removed. There was no evidence of complication. Impression:Successful ultrasound guided paracentesis. Signed: Andre Frederick MDReport Verified Date/Time: 12/30/2019 20:17:35 Reading Location: [facility] [id number] Ultrasound Reading Room BODY FLUID CELL COUNT WITH [id number] 15:41:00 Test Item Value Reference Range Interpretation Comments APPEARANCE FLUID (BEAKER) (test Hazy Clear A code = 510) COLOR FLUID (BEAKER) (test code Straw Colorless, Straw = 511) RBC FLUID (BEAKER) (test code = 615 /cu mm <=1 H 513) ADJUSTED WBC FLUID (BEAKER) 115 /cu mm <=5 H (test code = 1691) LINING CELLS (BEAKER) (test code 27 /cu mm <=1 H = 1590) NEUTROPHILS FLUID (BEAKER) (test 51 % code = 1656) LYMPHS FLUID (BEAKER) (test code 20 % = 488) MONO/MACROPHAGE FLUID (BEAKER) 29 % (test code = 489) EOSINOPHILS FLUID (BEAKER) (test 0 % code = 491) BASO FLUID (BEAKER) (test code = 0 % 492) CONTAINER BODY FLUID (BEAKER) Sterile Cup (test code = 2873) [id number] 08:18:00 Test Item Value Reference Range Interpretation Comments PTT (test code = 97250-5) 33.9 22.5- 36.0 seconds Lab Interpretation (test code = Normal 14406-8) [id number] 08:18:00 Test Item Value Reference Range Interpretation Comments PARTIAL THROMBOPLASTIN TIME 33.9 seconds 22.5-36.0 (BEAKER) (test code = 760) Prothrombin time/[id number] 08:17:00 Test Item Value Reference Range Interpretation Comments Protime (test code = 15.5 11.9- 14.2 H 5902-2) seconds INR (test code = 1.26 <=5.90 6301-6) JEFF (test code = JEFF) Effective 08/04/2018: PT Reference Range ChangeNew: 11.9-14.2 Previous: 11.7-14.7 RECOMMENDED COUMADIN/WARFARIN INR THERAPY RANGESSTANDARD DOSE: 2.0-3.0 Includes: PROPHYLAXIS for venous thrombosis, systemic embolization; TREATMENT for venous thrombosis and/or pulmonary embolus.HIGH RISK: Target INR is 2.5-3.5 for patients wiht mechanical heart valves. Lab Interpretation Abnormal (test code = 62467-8) [facility] CenterPROTHR[facility]/[id number] 08:17:00 Test Item Value Reference Range Interpretation Comments PROTIME (BEAKER) (test code = 15.5 seconds 11.9-14.2 H 759) INR (BEAKER) (test code = 370) 1.26 <=5.90 Effective 08/04/2018: PT Reference Range ChangeNew: 11.9-14.2 Previous: 11.7- 14.7RECOMMENDED COUMADIN/WARFARIN INR THERAPY RANGESSTANDARD DOSE: 2.0-3.0 Includes: PROPHYLAXIS for venous thrombosis, systemic embolization; TREATMENT for venous thrombosis and/or pulmonary embolus.HIGH RISK: Target INR is2.5-3.5 for patients wiht mechanical heart valves.CBC with platelet count + automated [id number] 08:08:00 Test Item Value Reference Range Interpretation Comments WBC (test code = 6690-2) 5.0 3.5- 10.5 K/L RBC (test code = 789-8) 3.51 3.93- 5.22 M/L L MCHC (test code = 786-4) 31.6 32.2- 35.5 GM/DL L Hematocrit (test code = 4544-3) 29.7 % 34.1-44.9 L MCV (test code = 787-2) 84.6 fL 79.4-94.8 MCH (test code = 785-6) 26.8 pg 25.6-32.2 RDW (test code = 788-0) 18.3 % 11.7-14.4 H Platelets (test code = 777-3) 90 150- 450 K/CU MM L MPV (test code = 14470-1) 9.0 fL 9.4-12.3 L nRBC (test code = 413) 0 0- 0 /100 WBC % Neutros (test code = 429) 83 % % Lymphs (test code = 430) 6 % % Monos (test code = 431) 11 % % Eos (test code = 432) 0 % % Baso (test code = 437) 0 % # Neutros (test code = 670) 4.12 1.56- 6.13 K/L # Lymphs (test code = 414) 0.28 1.18- 3.74 K/L L # Monos (test code = 415) 0.54 0.24- 0.36 K/L H # Eos (test code = 416) 0.02 0.04- 0.36 K/L L # Baso (test code = 417) 0.01 0.01- 0.08 K/L Immature Granulocytes-Relative 0 % 0-1 (test code = 2801) Lab Interpretation (test code = Abnormal 99221-3) [facility] W/PLT COUNT & AUTO [id number] 08:08:00 Test Item Value Reference Range Interpretation Comments WHITE BLOOD CELL COUNT (BEAKER) 5.0 K/ L 3.5-10.5 (test code = 775) RED BLOOD CELL COUNT (BEAKER) 3.51 M/ L 3.93-5.22 L (test code = 761) HEMOGLOBIN (BEAKER) (test code = 9.4 GM/DL 11.2-15.7 L 410) HEMATOCRIT (BEAKER) (test code = 29.7 % 34.1-44.9 L 411) MEAN CORPUSCULAR VOLUME (BEAKER) 84.6 fL 79.4-94.8 (test code = 753) MEAN CORPUSCULAR HEMOGLOBIN 26.8 pg 25.6-32.2 (BEAKER) (test code = 751) MEAN CORPUSCULAR HEMOGLOBIN CONC 31.6 GM/DL 32.2-35.5 L (BEAKER) (test code = 752) RED CELL DISTRIBUTION WIDTH 18.3 % 11.7-14.4 H (BEAKER) (test code = 412) PLATELET COUNT (BEAKER) (test code 90 K/CU MM 150-450 L = 756) MEAN PLATELET VOLUME (BEAKER) 9.0 fL 9.4-12.3 L (test code = 754) NUCLEATED RED BLOOD CELLS (BEAKER) 0 /100 WBC 0-0 (test code = 413) NEUTROPHILS RELATIVE PERCENT 83 % (BEAKER) (test code = 429) LYMPHOCYTES RELATIVE PERCENT 6 % (BEAKER) (test code = 430) MONOCYTES RELATIVE PERCENT 11 % (BEAKER) (test code = 431) EOSINOPHILS RELATIVE PERCENT 0 % (BEAKER) (test code = 432) BASOPHILS RELATIVE PERCENT 0 % (BEAKER) (test code = 437) NEUTROPHILS ABSOLUTE COUNT 4.12 K/ L 1.56-6.13 (BEAKER) (test code = 670) LYMPHOCYTES ABSOLUTE COUNT 0.28 K/ L 1.18-3.74 L (BEAKER) (test code = 414) MONOCYTES ABSOLUTE COUNT (BEAKER) 0.54 K/ L 0.24-0.36 H (test code = 415) EOSINOPHILS ABSOLUTE COUNT 0.02 K/ L 0.04-0.36 L (BEAKER) (test code = 416) BASOPHILS ABSOLUTE COUNT (BEAKER) 0.01 K/ L 0.01-0.08 (test code = 417) IMMATURE GRANULOCYTES-RELATIVE 0 % 0-1 PERCENT (BEAKER) (test code = 2801) U/S, [id number] 19:29:00Referring: Dr. Najma Sultanainister 200 mL of albumin 25% (50 grams) IV x1 after paracentesis if 3 or more liters removed.Send ascitic fluid for cell count and differential.Labs to be ordered:->Other (please add comment)cell count and diffReason for Exam:- >H[facility]ITISGREATER [facility] : 1955 Sex: FFINAL REPORT Ultrasound guided paracentesis. Clinical History: Ascites. Sedation: None. Police Captain Senior: Joellen Cuellar PA-C Metal Products Viewer: None. Estimated Blood Loss: < 1 cc. Specimen: 6100 cc of clear yellow fluid, samples sent to laboratory. Technique: Informed consent was obtained. The risks of pain, bleeding, infection, bowel perforation, injury to adjacent structures, and adverse medication reactions were discussed with the patient. After informed consent was obtained, the patient's abdomen was scanned. The RLQ of the abdomen was selected for paracentesis. After the largest fluid pocket area was marked, and the anterior abdominal wall was evaluated with color Doppler to exclude presence of blood vessels traversing the area, the skinwas prepped and draped in the usual sterile manner. After local anesthesia was achieved with 2% lidocaine, a 5 Nepalese one-step catheter was advanced into the peritoneal cavity under ultrasound guidance. After completion of drainage, the catheter was removed. There was no evidence of complication. Impression:Successful ultrasound guided paracentesis. Signed: Reynold Greene Verified Date/Time: 12/24/2019 19:29:37 Reading Location: [address] Ultrasound Reading Room BODY FLUID CELL COUNT WITH [id number] 15:47:00 Test Item Value Reference Range Interpretation Comments APPEARANCE FLUID (BEAKER) (test Cloudy Clear A code = 510) COLOR FLUID (BEAKER) (test code Esther Colorless, Straw A = 511) RBC FLUID (BEAKER) (test code = 6000 /cu mm <=1 H 513) ADJUSTED WBC FLUID (BEAKER) 146 /cu mm <=5 H (test code = 1691) LINING CELLS (BEAKER) (test 21 /cu mm <=1 H code = 1590) NEUTROPHILS FLUID (BEAKER) 24 % (test code = 1656) LYMPHS FLUID (BEAKER) (test 57 % code = 488) MONO/MACROPHAGE FLUID (BEAKER) 19 % (test code = 489) EOSINOPHILS FLUID (BEAKER) 0 % (test code = 491) BASO FLUID (BEAKER) (test code 0 % = 492) CONTAINER BODY FLUID (BEAKER) Sterile Vial (test code = 2873) U/S, [id number] 14:31:00Referring: Dr. Nizam MeahAdminister 200 mL of albumin 25% (50 grams) IV x1 after paracentesis if 3 or more liters removed.Send ascitic fluid for cell count and differential.Labs to be ordered:->Other (please add comment)cell count and diffReason for Exam:- >HCC, ASCITISFINAL REPORT Ultrasound guided paracentesis. Clinical History: Ascites. Sedation: None. Police Captain Senior: Joellen Cuellar PA-C Metal Products Viewer: None. Estimated Blood Loss: < 1 cc. Specimen: 4000 cc of clear yellow fluid, samples sent to laboratory. Technique: Informed consent was obtained. The risks of pain, bleeding, infection, bowel perforation, injury to adjacent structures, and adverse medication reactions were discussed with the patient. After informed consent was obtained, the patient's abdomen was scanned. The RLQ of the abdomen was selected for paracentesis. After the largest fluid pocket area was marked, and the anterior abdominal wall was evaluated with color Doppler to exclude presence of blood vessels traversing the area, the skin was preppedand draped in the usual sterile manner. After local anesthesia was achieved with 2% lidocaine, a 5 Nepalese one-step catheter was advanced into the peritoneal cavity under ultrasound guidance. After completion of drainage, the catheter was removed. There was no evidence of complication. Impression:Successful ultrasound guided paracentesis. Signed: Randy Radford Verified Date/Time: 12/16/2019 14:31:43 Reading Location: [address] Ultrasound Reading Room BODY FLUID CELL COUNT WITH [id number] 13:26:00 Test Item Value Reference Range Interpretation Comments APPEARANCE FLUID (BEAKER) Slightly Hazy Clear A (test code = 510) COLOR FLUID (BEAKER) (test Yellow Colorless, Straw A code = 511) RBC FLUID (BEAKER) (test code 191 /cu mm <=1 H = 513) ADJUSTED WBC FLUID (BEAKER) 112 /cu mm <=5 H (test code = 1691) LINING CELLS (BEAKER) (test 30 /cu mm <=1 H code = 1590) NEUTROPHILS FLUID (BEAKER) 15 % (test code = 1656) LYMPHS FLUID (BEAKER) (test 16 % code = 488) MONO/MACROPHAGE FLUID (BEAKER) 69 % (test code = 489) EOSINOPHILS FLUID (BEAKER) 0 % (test code = 491) BASO FLUID (BEAKER) (test code 0 % = 492) CONTAINER BODY FLUID (BEAKER) EDTA Tube (test code = 2873) BODY FLUID CELL COUNT WITH [id number] 15:27:00 Test Item Value Reference Range Interpretation Comments APPEARANCE FLUID (BEAKER) (test Hazy Clear A code = 510) COLOR FLUID (BEAKER) (test code Straw Colorless, Straw = 511) RBC FLUID (BEAKER) (test code = 380 /cu mm <=1 H 513) ADJUSTED WBC FLUID (BEAKER) 157 /cu mm <=5 H (test code = 1691) LINING CELLS (BEAKER) (test code 17 /cu mm <=1 H = 1590) NEUTROPHILS FLUID (BEAKER) (test 18 % code = 1656) LYMPHS FLUID (BEAKER) (test code 35 % = 488) MONO/MACROPHAGE FLUID (BEAKER) 47 % (test code = 489) EOSINOPHILS FLUID (BEAKER) (test 0 % code = 491) BASO FLUID (BEAKER) (test code = 0 % 492) CONTAINER BODY FLUID (BEAKER) Sterile Cup (test code = 2873) U/S, [id number] 14:56:00Referring: Dr. Najma Sultanainister 200 mL of albumin 25% (50 grams) IV x1 after paracentesis if 3 or more liters removed.Send ascitic fluid for cell count and differential.Labs to be ordered:->Other (please add comment)cell count and diffReason for Exam:- >HCC, ASCITISFINAL REPORT Ultrasound guided paracentesis Clinical History: Ascites. Sedation: None. Police Captain Senior: Elaine Blake PA-C Supervising Physician: Reynold Greene MD Metal Products Viewer: None. Estimated Blood Loss: < 1 mL. Specimen: 5200 mL of clear yellow fluid, samples sent to laboratory. Technique: Informed consent was obtained. The risks of pain, bleeding, infection, bowel perforation, injury to adjacent structures, and adverse medication reactions were discussed with the patient. After informed consent was obtained, the patient's abdomen was scanned. Theright lower quadrant of the abdomen was selected for paracentesis. After the largest fluid pocket area was marked, and the anterior abdominal wall was evaluated with color Doppler to exclude presence of blood vessels traversing the area, the skin was prepped and draped in the usual sterile manner. After local anesthesia was achieved with lidocaine, a 5 Nepalese one-step catheter was advanced into theperitoneal cavity under ultrasound guidance. After completion of drainage, the catheter was removed.There was no evidence of complication. Impression:Successful ultrasound guided paracentesis. Signed:Reynold Greene MDReport Verified Date/Time: 12/09/2019 14:56:31 Reading Location: [facility] P006J Ultrasound Reading Room U/S, [id number] 09:23:00Referring: Dr. Najma Sultanainishayder 200 mL of albumin 25% (50 grams) IV x1 after paracentesis if 3 or more liters removed.Send ascitic fluid for cell count and differential.Labs to be ordered:->Other (please add comment)CELL count and diffReason for Exam:->HCC,ASCITISFINAL REPORT Ultrasound guided paracentesis Clinical History: Ascites. Sedation: None. Police Captain Senior: Elaine Blake PA-C Supervising Physician: Karina Conner MD Metal Products Viewer: None. Estimated Blood Loss: < 1 mL. Specimen: 1100 mL of clear yellow fluid, samples sent to laboratory. Technique: Informed consent was obtained. The risks of pain, bleeding, infection, bowel perforation, injury to adjacent structures, and adverse medication reactions were discussed with the patient. After informed consent was obtained, the patient's abdomen was scanned. The rig ht lower quadrant of the abdomen was selected for paracentesis. After the largest fluid pocket areawas marked, and the anterior abdominal wall was evaluated with color Doppler to exclude presence of blood vessels traversing the area, the skin was prepped and draped in the usual sterile manner. After local anesthesia was achieved with lidocaine, a 5 Nepalese one-step catheter was advanced into the peritoneal cavity under ultrasound guidance. After completion of drainage, the catheter was removed. There was no evidence of complication. Impression:Successful ultrasound guided paracentesis. Signed: Karina Conner MDReport Verified Date/Time: 12/01/2019 09:23:48 Reading Location: [address] UltrasoundReading Room Glucose Peritoneal [id number] 18:11:00 Test Item Value Reference Range Interpretation Comments Glucose, 327 mg/dL Reference Rang e Peritoneal Fluid approximate s that (test code = found in serum. 2347-3) JEFF (test code = Performing Lab JEFF) [employer] [employer] [facility] [address] [place] [address] Obdulio Griffith MD, PhD, MOON [facility] CenterU/S, [id number] 08:30:00Referring: Dr. Najma Hoff to be ordered:->Body Fluid Culture (w/Gram Stain, C\\T\\S)AlbuminLabsto be ordered:->Glucose+LDH+ProteinLabs to be ordered:- >Cell CountLabs to be ordered:->Other (please add comment)Reason for exam:->SBPFINAL REPORT Ultrasound guided paracentesis Clinical History: Ascites. Sedation: None. Police Captain Senior: Elaine Blake PA-C Supervising Physician: Reynold Greene MD Metal Products Viewer: None. Estimated Blood Loss: < 1 mL. Specimen: 950 mL of clear yellow fluid, samples sent to laboratory. Technique: Informed consent was obtained. The risks of pain, bleeding, infection, bowel perforation, injury to adjacent structures, and adverse medication reactions were discussed with the patient. After informed consent was obtained, the patient's abdomen was scanned. The right upper quadrant of the abdomen was selected for paracentesis. After the largest fluid pocket area was marked, and the anterior abdominal wall was evaluated with color Doppler to exclude presence of blood vessels traversing the area, the skin was prepped and draped in the usual sterile manner. After local anesthesia was achieved with lidocaine, a 5 Nepalese one-step catheter was advanced into the p eritoneal cavity under ultrasound guidance. After completion of drainage, the catheter was removed. There was no evidence of complication. Impression:Successful ultrasound guided paracentesis. Signed: Reynold Greene Verified Date/Time: 11/29/2019 08:30:43 Reading Location: [facility] P006J Ultrasound Reading Room Blood Culture - Routine (Left Venipuncture)2019-11-28 19:00:00 Test Item Value Reference Range Interpretation Comments Result (test code = No growth in 5 days 6463-4) [facility] CenterBLOOD [id number] 19:00:00 Test Item Value Reference Range Interpretation Comments CULTURE (BEAKER) (test No growth in 5 days code = 1095) BODY FLUID CULTURE + GRAM [id number] 12:16:00 Test Item Value Reference Range Interpretation Comments CULTURE (BEAKER) (test code No growth = 1095) GRAM STAIN RESULT (BEAKER) 3+ WBCs (test code = 1123) GRAM STAIN RESULT (BEAKER) No organisms seen (test code = 45423) Body fluid culture + gram [id number] 12:10:00 Test Item Value Reference Range Interpretation Comments Result (test code = 6463-4) No growth Gram Stain Result (test No organisms seen code = 1123) [facility] CenterB[facility] + GRAM [id number] 12:10:00 Test Item Value Reference Range Interpretation Comments CULTURE (BEAKER) (test code No growth = 1095) GRAM STAIN RESULT (BEAKER) 3+ WBCs (test code = 1123) GRAM STAIN RESULT (BEAKER) No organisms seen (test code = 45886) POC-Glucose [id number] 12:02:00 Test Item Value Reference Range Interpretation Comments POC-Glucose Meter (test 221 mg/dL 70-110 H : TE STED AT [facility] code = 1538) [address] [facility], 770 30: [place] Worker/Techni gianluca ID = [id number] for DAVION WALTON Lab Interpretation (test Abnormal code = 55894-3) [facility] CenterPOCT-GLUCOSE [id number] 12:02:00 Test Item Value Reference Range Interpretation Comments POC-GLUCOSE METER 221 mg/dL 70-110 H : TESTED A T [facility] 6720 (BEAKER) (test code [facility], = 1538) [address]: [place] Worker/Techni gianluca ID = [id number] for DAVION WALTON POCT-GLUCOSE [id number] 07:49:00 Test Item Value Reference Range Interpretation Comments POC-GLUCOSE METER 144 mg/dL 70-110 H : TESTED A T [facility] 6720 (BEAKER) (test code = [facility], 1538) [address]: [place] Worker/Techni gianluca ID = [id number] for BRENNAN GURROLA POCT-GLUCOSE [id number] 21:41:00 Test Item Value Reference Range Interpretation Comments POC-GLUCOSE METER 201 mg/dL 70-110 H : TESTED A T [facility] 6720 (BEAKER) (test code = [facility], 1538) [address]: [place] Worker/Techni gianluca ID = [id number] for MARITZA FLORES POCT-GLUCOSE [id number] 16:29:00 Test Item Value Reference Range Interpretation Comments POC-GLUCOSE METER 122 mg/dL 70-110 H : TESTED A T [facility] 6720 (BEAKER) (test code = [facility], 1538) [address]: [place] Worker/Techni gianluca ID = [id number] for Zhang Palacios POCT-GLUCOSE [id number] 11:03:00 Test Item Value Reference Range Interpretation Comments POC-GLUCOSE METER 305 mg/dL 70-110 H : TESTED A T [facility] 6720 (BEAKER) (test code = [facility], 1538) 78[address]: [place] Worker/Techni gianluca ID = [id number] for GILLILAND BLECATIE EscobarA POCT-GLUCOSE [id number] 08:12:00 Test Item Value Reference Range Interpretation Comments POC-GLUCOSE METER 192 mg/dL 70-110 H : TESTED A T [facility] 6720 (BEAKER) (test code = [facility], 1538) [address]: [place] Worker/Techni gianluca ID = [id number] for GILLILAND BLET, KRZYSZTOF Comprehensive metabolic [id number] 06:06:00 Test Item Value Reference Range Interpretation Comments Protein, Total (test 5.7 6.0- 8.3 gm/dL L code = 2885-2) Albumin (test code = 3.3 g/dL 3.5-5 L 12347-7) Alkaline Phosphatase 139 U/L 40-150 (test code = 6768-6) Total Bilirubin (test 1.6 mg/dL 0.2-1.2 H code = 1974-2) Sodium (test code = 136 meq/L 983-043 9991-2) Potassium (test code = 4.3 meq/L 3.5-5.1 2823-3) Chloride (test code = 99 meq/L 98-107 2075-0) CO2 (test code = 29 meq/L 22-29 8-9) BUN (test code = 21 mg/dL 7-21 3094-0) Creatinine (test code 0.87 mg/dL 0.57-1.25 = 2160-0) Glucose (test code = 150 mg/dL 70-105 H 2345-7) Calcium (test code = 8.3 mg/dL 8.4-10.2 L 26509-9) AST (test code = 33 U/L 5-34 1920-8) ALT (test code = 39 U/L 6-55 1742-6) EGFR (test code = 65 mL/min/1.73 [place] [address]-4) NOT ACCURATE CREATININE CLEARANCE IN PREDICTING GLOMERULAR FILTRATION RATE . ESTIMATED GFR I S NOT APPLICABLE FOR DIALYSIS PATIENTS. JEFF (test code = JEFF) [place] Worker NICOL [facility] Lab Interpretation Abnormal (test code = 83114-0) [facility] CenterCOMPREHENSIVE METABOLIC [id number] 06:06:00 Test Item Value Reference Range Interpretation Comments TOTAL PROTEIN 5.7 gm/dL 6.0-8.3 L (BEAKER) (test code = 770) ALBUMIN (BEAKER) 3.3 g/dL 3.5-5.0 L (test code = 1145) ALKALINE PHOSPHATASE 139 U/L 40-150 (BEAKER) (test code = 346) BILIRUBIN TOTAL 1.6 mg/dL 0.2-1.2 H (BEAKER) (test code = 377) SODIUM (BEAKER) (test 136 meq/L 136-145 code = 381) POTASSIUM (BEAKER) 4.3 meq/L 3.5-5.1 (test code = 379) CHLORIDE (BEAKER) 99 meq/L 98-107 (test code = 382) CO2 (BEAKER) (test 29 meq/L 22-29 code = 355) BLOOD UREA NITROGEN 21 mg/dL 7-21 (BEAKER) (test code = 354) CREATININE (BEAKER) 0.87 mg/dL 0.57-1.25 (test code = 358) GLUCOSE RANDOM 150 mg/dL 70-105 H (BEAKER) (test code = 652) CALCIUM (BEAKER) 8.3 mg/dL 8.4-10.2 L (test code = 697) AST (SGOT) (BEAKER) 33 U/L 5-34 (test code = 353) ALT (SGPT) (BEAKER) 39 U/L 6-55 (test code = 347) EGFR (BEAKER) (test 65 mL/min/1.73 ESTIMA LUCIAN GFR IS code = 1092) sq m NOT ACCURATE CREATININE CLEARANCE IN PREDICTING GLOMERULAR FILTRATION RATE . ESTIMATED GFR I S NOT APPLICABLE FOR DIALYSIS PATIEN TS. [place] Worker ID - AAMIR MPROTHROMBIN TIME/[id number] 05:08:00 Test Item Value Reference Range Interpretation Comments PROTIME (BEAKER) (test code = 15.8 seconds 11.9-14.2 H 759) INR (BEAKER) (test code = 370) 1.30 <=5.90 Effective 08/04/2018: PT Reference Range ChangeNew: 11.9-14.2 Previous: 11.7- 14.7RECOMMENDED COUMADIN/WARFARIN INR THERAPY RANGESSTANDARD DOSE: 2.0-3.0 Includes: PROPHYLAXIS for venous thrombosis, systemic embolization; TREATMENT for venous thrombosis and/or pulmonary embolus.HIGH RISK: Target INR is2.5-3.5 for patients wiht mechanical heart valves.CBC W/PLT COUNT & AUTO [id number] 05:03:00 Test Item Value Reference Range Interpretation Comments WHITE BLOOD CELL COUNT (BEAKER) 3.5 K/ L 3.5-10.5 (test code = 775) RED BLOOD CELL COUNT (BEAKER) 3.68 M/ L 3.93-5.22 L (test code = 761) HEMOGLOBIN (BEAKER) (test code = 9.0 GM/DL 11.2-15.7 L 410) HEMATOCRIT (BEAKER) (test code = 29.8 % 34.1-44.9 L 411) MEAN CORPUSCULAR VOLUME (BEAKER) 81.0 fL 79.4-94.8 (test code = 753) MEAN CORPUSCULAR HEMOGLOBIN 24.5 pg 25.6-32.2 L (BEAKER) (test code = 751) MEAN CORPUSCULAR HEMOGLOBIN CONC 30.2 GM/DL 32.2-35.5 L (BEAKER) (test code = 752) RED CELL DISTRIBUTION WIDTH 20.0 % 11.7-14.4 H (BEAKER) (test code = 412) PLATELET COUNT (BEAKER) (test code 78 K/CU MM 150-450 L = 756) MEAN PLATELET VOLUME (BEAKER) 9.7 fL 9.4-12.3 (test code = 754) NUCLEATED RED BLOOD CELLS (BEAKER) 0 /100 WBC 0-0 (test code = 413) NEUTROPHILS RELATIVE PERCENT 78 % (BEAKER) (test code = 429) LYMPHOCYTES RELATIVE PERCENT 8 % (BEAKER) (test code = 430) MONOCYTES RELATIVE PERCENT 12 % (BEAKER) (test code = 431) EOSINOPHILS RELATIVE PERCENT 1 % (BEAKER) (test code = 432) BASOPHILS RELATIVE PERCENT 0 % (BEAKER) (test code = 437) NEUTROPHILS ABSOLUTE COUNT 2.70 K/ L 1.56-6.13 (BEAKER) (test code = 670) LYMPHOCYTES ABSOLUTE COUNT 0.29 K/ L 1.18-3.74 L (BEAKER) (test code = 414) MONOCYTES ABSOLUTE COUNT (BEAKER) 0.42 K/ L 0.24-0.36 H (test code = 415) EOSINOPHILS ABSOLUTE COUNT 0.03 K/ L 0.04-0.36 L (BEAKER) (test code = 416) BASOPHILS ABSOLUTE COUNT (BEAKER) 0.01 K/ L 0.01-0.08 (test code = 417) IMMATURE GRANULOCYTES-RELATIVE 0 % 0-1 PERCENT (BEAKER) (test code = 2801) POCT-GLUCOSE [id number] 22:43:00 Test Item Value Reference Range Interpretation Comments POC-GLUCOSE METER 146 mg/dL 70-110 H : TESTED Alicia Escobar [facility] 6720 (BEAKER) (test code = [place], 1538) [address]: [place] Worker/Techni gianluca ID = [id number] for RE YNOLDS, CHRISTOPHER POCT-GLUCOSE [id number] 17:07:00 Test Item Value Reference Range Interpretation Comments POC-GLUCOSE METER 224 mg/dL 70-110 H : TESTED A T [facility] 6720 (BEAKER) (test code = [facility], 1538) [address]: [place] Worker/Techni gianluca ID = [id number] for BRENNAN GURROLA POCT-GLUCOSE [id number] 11:56:00 Test Item Value Reference Range Interpretation Comments POC-GLUCOSE METER 151 mg/dL 70-110 H : TESTED A T [facility] 6720 (BEAKER) (test code = [facility], 1538) [address]: [place] Worker/Techni gianluca ID = [id number] for BRENNAN GURROLA POCT-GLUCOSE [id number] 08:37:00 Test Item Value Reference Range Interpretation Comments POC-GLUCOSE METER 119 mg/dL 70-110 H : TESTED A T [facility] 6720 (BEAKER) (test code = [facility], 1538) [address]: [place] Worker/Techni gianluca ID = [id number] for Joellen Gómez COMPREHENSIVE METABOLIC [id number] 05:36:00 Test Item Value Reference Range Interpretation Comments TOTAL PROTEIN 5.4 gm/dL 6.0-8.3 L (BEAKER) (test code = 770) ALBUMIN (BEAKER) 2.7 g/dL 3.5-5.0 L (test code = 1145) ALKALINE PHOSPHATASE 148 U/L 40-150 (BEAKER) (test code = 346) BILIRUBIN TOTAL 1.6 mg/dL 0.2-1.2 H (BEAKER) (test code = 377) SODIUM (BEAKER) (test 135 meq/L 136-145 L code = 381) POTASSIUM (BEAKER) 4.0 meq/L 3.5-5.1 (test code = 379) CHLORIDE (BEAKER) 99 meq/L 98-107 (test code = 382) CO2 (BEAKER) (test 29 meq/L 22-29 code = 355) BLOOD UREA NITROGEN 21 mg/dL 7-21 (BEAKER) (test code = 354) CREATININE (BEAKER) 0.80 mg/dL 0.57-1.25 (test code = 358) GLUCOSE RANDOM 123 mg/dL 70-105 H (BEAKER) (test code = 652) CALCIUM (BEAKER) 7.9 mg/dL 8.4-10.2 L (test code = 697) AST (SGOT) (BEAKER) 40 U/L 5-34 H (test code = 353) ALT (SGPT) (BEAKER) 53 U/L 6-55 (test code = 347) EGFR (BEAKER) (test 72 mL/min/1.73 ESTIMA LUCIAN GFR IS code = 1092) sq m NOT ACCURATE CREATININE CLEARANCE IN PREDICTING GLOMERULAR FILTRATION RATE . ESTIMATED GFR I S NOT APPLICABLE FOR DIALYSIS PATIEN TS. [place] Worker ID - PIAYA LPOCT-GLUCOSE [id number] 20:50:00 Test Item Value Reference Range Interpretation Comments POC-GLUCOSE METER 189 mg/dL 70-110 H : TESTED A T [facility] 6720 (BEAKER) (test code = [facility], 1538) 411[address]: [place] Worker/Techni gianluca ID = [id number] for DE YULIA LION POCT-GLUCOSE [id number] 17:38:00 Test Item Value Reference Range Interpretation Comments POC-GLUCOSE METER 334 mg/dL 70-110 H : TESTED A T [facility] 6720 (BEAKER) (test code = [facility], 1538) [address]: [place] Worker/Techni gianluca ID = [id number] for JOELLEN COTO BODY FLUID CELL COUNT WITH [id number] 17:34:00 Test Item Value Reference Range Interpretation Comments APPEARANCE FLUID (BEAKER) (test Hazy Clear A code = 510) COLOR FLUID (BEAKER) (test code Straw Colorless, Straw = 511) RBC FLUID (BEAKER) (test code = 2000 /cu mm <=1 H 513) ADJUSTED WBC FLUID (BEAKER) 325 /cu mm <=5 H (test code = 1691) LINING CELLS (BEAKER) (test code 52 /cu mm <=1 H = 1590) NEUTROPHILS FLUID (BEAKER) (test 58 % code = 1656) LYMPHS FLUID (BEAKER) (test code 16 % = 488) MONO/MACROPHAGE FLUID (BEAKER) 26 % (test code = 489) EOSINOPHILS FLUID (BEAKER) (test 0 % code = 491) BASO FLUID (BEAKER) (test code = 0 % 492) CONTAINER BODY FLUID (BEAKER) EDTA Tube (test code = 2873) SARS-CoV2/RT-PCR (Asymptomatic ONLY)2019-11-24 15:05:00 Test Item Value Reference Range Interpretation Comments SARS-COV2/RT-PCR Negative Not Detected, (test code = Negative, See 70761-7) external report for linked test [facility]COV-2 [facility] (test code = 47555-5) JEFF (test code = Negative result for this JEFF) test determines that SARS-CoV-2 RNA was not present in the [...] of the Act. Fact Sheet for Healthcare Providers:https://www.Let[employer] Gift It idePCA Audit.com/sites/default/f rachelle/product/documents/F act_Sheet_HC_Providers_L tnn_NEQE-EpC-2.pdf Fact Sheet for Healthcare Patients:https://www.ValveXchange del.com/sites/default/fi les/product/documents/Fa ct_Sheet_Patients_Lyra_S ARS-CoV-2.pdf Performing Laboratory:[facility] [place] [address] [place] [facility]2019-11-24 15:05:00 Test Item Value Reference Range Interpretation Comments SARS-COV2/RT-PCR (test Negative Not Detected, Negative, code = 3857521) See external report for linked test SARS-COV-2 PERFORMING LAB [facility] HERMILO (test code = 0054982) Negative result for this test determines that SARS-CoV-2 RNA was not present in the specimen above the Limit of Detection (LOD). However, Negative results do not preclude SARS-CoV-2 infection and should not be used as the sole basis for treatment or patient management decisions. Negative results mustbe combined with clinical observations, patient history, and epidemiological information. A false negative result may occur if a specimen is improperly collected, transported or handled. A false negative result should be considered if patient's recent exposures or clinical presentation indicate that COVID-19 (SARS-CoV-2) is likely and diagnostic tests for other causes of illness are negative. Re-testing should be considered in cases of suspected false negatives.The limit of detection for this assay is 800 copies/mL.This SARS CoV-2 test is a real-time RT-PCR test intended for the qualitative detection of nucleic acid from SARS-CoV-2 in a nasopharyngeal swab specimen collected from individuals susp ected of COVID-19 by their healthcare provider.This test has not been Food and Drug [...] is revoked under Section 564(g) of the Act.Fact Sheet for Healthcare Providers:https://www.[employer].com/sites/default/files/product/documents/Fact_Shee s_UL_Zqslbmruh_Xprg_CCRP-OkE-9.pdfFact Sheet for Healthcare Patients:https://www.[employer]/sites/default/files/product/ documents/Bqdf_Xqrek_Ndycvwow_Nsvm_AZPI-KvY-0.pdfPerforming Laboratory:[facility], [place] [address]WEVHCWTYEQE TIME/INR 2019-11-24 10:35:00 Test Item Value Reference Range Interpretation Comments PROTIME (BEAKER) (test code = 16.4 seconds 11.9-14.2 H 759) INR (BEAKER) (test code = 370) 1.36 <=5.90 Effective 08/04/2018: PT Reference Range ChangeNew: 11.9-14.2 Previous: 11.7- 14.7RECOMMENDED COUMADIN/WARFARIN INR THERAPY RANGESSTANDARD DOSE: 2.0-3.0 Includes: PROPHYLAXIS for venous thrombosis, systemic embolization; TREATMENT for venous thrombosis and/or pulmonary embolus.HIGH RISK: Target INR is2.5-3.5 for patients wiht mechanical heart valves.POCT-GLUCOSE [id number] 07:53:00 Test Item Value Reference Range Interpretation Comments POC-GLUCOSE METER 131 mg/dL 70-110 H : TESTED A T [facility] 6720 (BEAKER) (test code = LUCITA Kidd [facility], 1538) [id number]: [place] Worker/Techni gianluca ID = [id number] for ZONIA ISSA COMPREHENSIVE METABOLIC [id number] 07:12:00 Test Item Value Reference Range Interpretation Comments TOTAL PROTEIN 5.8 gm/dL 6.0-8.3 L Specimen sligh tly (BEAKER) (test code = hemoly zed 770) ALBUMIN (BEAKER) 2.8 g/dL 3.5-5.0 L Specimen sl ightly (test code = 1145) hemolyzed ALKALINE PHOSPHATASE 149 U/L 40-150 (BEAKER) (test code = 346) BILIRUBIN TOTAL 2.0 mg/dL 0.2-1.2 H Specimen sli ghtly (BEAKER) (test code = hemoly zed 377) SODIUM (BEAKER) (test 133 meq/L 136-145 L code = 381) POTASSIUM (BEAKER) 4.2 meq/L 3.5-5.1 Specimen slightly (test code = 379) hemolyzed CHLORIDE (BEAKER) 99 meq/L 98-107 (test code = 382) CO2 (BEAKER) (test 26 meq/L 22-29 code = 355) BLOOD UREA NITROGEN 24 mg/dL 7-21 H (BEAKER) (test code = 354) CREATININE (BEAKER) 0.93 mg/dL 0.57-1.25 Specimen slightly (test code = 358) hemolyzed GLUCOSE RANDOM 114 mg/dL 70-105 H (BEAKER) (test code = 652) CALCIUM (BEAKER) 7.9 mg/dL 8.4-10.2 L (test code = 697) AST (SGOT) (BEAKER) 58 U/L 5-34 H Specimen slightly (test code = 353) hemolyzed ALT (SGPT) (BEAKER) 66 U/L 6-55 H Specimen slightly (test code = 347) hemolyzed EGFR (BEAKER) (test 60 mL/min/1.73 ESTIMA LUCIAN GFR IS code = 1092) sq m NOT ACCURATE CREATININE CLEARANCE IN PREDICTING GLOMERULAR FILTRATION RATE . ESTIMATED GFR I S NOT APPLICABLE FOR DIALYSIS PATIEN TS. [place] Worker ID - AAMIR MPOCT-GLUCOSE [id number] 23:59:00 Test Item Value Reference Range Interpretation Comments POC-GLUCOSE METER 121 mg/dL 70-110 H : TESTED A T [facility] 6720 (BEAKER) (test code = [facility], 1538) [address]: [place] Worker/Techni gianluca ID = [id number] for CR AFSHIN ALDANA POCT-GLUCOSE [id number] 20:24:00 Test Item Value Reference Range Interpretation Comments POC-GLUCOSE METER 306 mg/dL 70-110 H : TESTED A T [facility] 6720 (BEAKER) (test code = [facility], 1538) [address]: [place] Worker/Techni gianluca ID = [id number] for DE SIR YULIA CBC W/PLT COUNT & AUTO [id number] 18:32:00 Test Item Value Reference Range Interpretation Comments WHITE BLOOD CELL COUNT (BEAKER) 3.8 K/ L 3.5-10.5 (test code = 775) RED BLOOD CELL COUNT (BEAKER) 3.83 M/ L 3.93-5.22 L (test code = 761) HEMOGLOBIN (BEAKER) (test code = 9.6 GM/DL 11.2-15.7 L 410) HEMATOCRIT (BEAKER) (test code = 30.7 % 34.1-44.9 L 411) MEAN CORPUSCULAR VOLUME (BEAKER) 80.2 fL 79.4-94.8 (test code = 753) MEAN CORPUSCULAR HEMOGLOBIN 25.1 pg 25.6-32.2 L (BEAKER) (test code = 751) MEAN CORPUSCULAR HEMOGLOBIN CONC 31.3 GM/DL 32.2-35.5 L (BEAKER) (test code = 752) RED CELL DISTRIBUTION WIDTH 19.4 % 11.7-14.4 H (BEAKER) (test code = 412) PLATELET COUNT (BEAKER) (test code 87 K/CU MM 150-450 L = 756) MEAN PLATELET VOLUME (BEAKER) 10.1 fL 9.4-12.3 (test code = 754) NEUTROPHILS RELATIVE PERCENT 86 % (BEAKER) (test code = 429) LYMPHOCYTES RELATIVE PERCENT 5 % (BEAKER) (test code = 430) MONOCYTES RELATIVE PERCENT 9 % (BEAKER) (test code = 431) EOSINOPHILS RELATIVE PERCENT 0 % (BEAKER) (test code = 432) BASOPHILS RELATIVE PERCENT 0 % (BEAKER) (test code = 437) NEUTROPHILS ABSOLUTE COUNT 3.29 K/ L 1.56-6.13 (BEAKER) (test code = 670) LYMPHOCYTES ABSOLUTE COUNT 0.19 K/ L 1.18-3.74 L (BEAKER) (test code = 414) MONOCYTES ABSOLUTE COUNT (BEAKER) 0.34 K/ L 0.24-0.36 (test code = 415) EOSINOPHILS ABSOLUTE COUNT 0.01 K/ L 0.04-0.36 L (BEAKER) (test code = 416) BASOPHILS ABSOLUTE COUNT (BEAKER) 0.01 K/ L 0.01-0.08 (test code = 417) IMMATURE GRANULOCYTES-RELATIVE 0 % 0-1 PERCENT (BEAKER) (test code = 2801) Urinalysis w/Microscopic + Reflex to [id number] 17:22:00 Test Item Value Reference Range Interpretation Comments Color, UA (test code = Yellow 5778-6) Clarity, UA (test code = Clear 5767-9) Specific [place], UA (test 1.026 1.001-1.035 code = 5811-5) pH, UA (test code = 5.0 5.0-8.0 5803-2) Protein, UA (test code = Negative Negative 32933-1) Glucose, UA (test code = >1000 mg/dL Negative A 365) Ketones, UA (test code = Negative Negative 2514-8) Bilirubin, UA (test code = Negative Negative 67818-0) Blood, UA (test code = Negative Negative 84087-8) Nitrite, UA (test code = Negative Negative 5802-4) Leukocytes, UA (test code Small Negative A = 5799-2) Urobilinogen, UA (test 0.2 mg/dL 0.2-1 code = 35475-6) RBC, UA (test code = 1 /HPF 35726-8) WBC, UA (test code = 1 /HPF 5821-4) Mucus (test code = 8247-9) Rare Squam Epithel, UA (test 1 /HPF code = 45773-7) Specimen Source (test code = 2795) JEFF (test code = JEFF) [place] Worker ID - [auto][place] Worker ID - tech Lab Interpretation (test Abnormal code = 80816-3) [facility] [id number] 17:22:00 Test Item Value Reference Range Interpretation Comments COLOR (BEAKER) (test code = 470) Yellow CLARITY (BEAKER) (test code = Clear 469) SPECIFIC GRAVITY UA (BEAKER) 1.026 1.001-1.035 (test code = 468) PH UA [...] Negative Negative 465) LEUKOCYTE ESTERASE UA (BEAKER) Small Negative A (test code = 466) UROBILINOGEN UA (BEAKER) (test 0.2 mg/dL 0.2-1.0 code = 463) RBC UA (BEAKER) (test code = 519) 1 /HPF WBC UA (BEAKER) (test code = 520) 1 /HPF MUCUS (BEAKER) (test code = 1574) Rare SQUAMOUS EPITHELIAL (BEAKER) 1 /HPF (test code = 516) SOURCE(BEAKER) (test code = 2795) [place] Worker ID - [auto][place] Worker ID - techCOMPREHENSIVE METABOLIC [id number] 17:21:00 Test Item Value Reference Range Interpretation Comments TOTAL PROTEIN 5.9 gm/dL 6.0-8.3 L (BEAKER) (test code = 770) ALBUMIN (BEAKER) 2.9 g/dL 3.5-5.0 L (test code = 1145) ALKALINE PHOSPHATASE 187 U/L 40-150 H (BEAKER) (test code = 346) BILIRUBIN TOTAL 1.8 mg/dL 0.2-1.2 H (BEAKER) (test code = 377) SODIUM (BEAKER) (test 127 meq/L 136-145 L code = 381) POTASSIUM (BEAKER) 3.8 meq/L 3.5-5.1 (test code = 379) CHLORIDE (BEAKER) 93 meq/L 98-107 L (test code = 382) CO2 (BEAKER) (test 24 meq/L 22-29 code = 355) BLOOD UREA NITROGEN 28 mg/dL 7-21 H (BEAKER) (test code = 354) CREATININE (BEAKER) 1.40 mg/dL 0.57-1.25 H (test code = 358) GLUCOSE RANDOM 431 mg/dL 70-105 HH (BEAKER) (test code = 652) CALCIUM (BEAKER) 7.7 mg/dL 8.4-10.2 L (test code = 697) AST (SGOT) (BEAKER) 44 U/L 5-34 H (test code = 353) ALT (SGPT) (BEAKER) 71 U/L 6-55 H (test code = 347) EGFR (BEAKER) (test 38 mL/min/1.73 ESTIMA LUCIAN GFR IS code = 1092) sq m NOT ACCURATE CREATININE CLEARANCE IN PREDICTING GLOMERULAR FILTRATION RATE . ESTIMATED GFR I S NOT APPLICABLE FOR DIALYSIS PATIEN TS. [place] Worker ID - BSSpecimen slightly ictericBODY FLUID CELL COUNT WITH DIFFERENTIAL 2019-11-22 18:56:00 Test Item Value Reference Range Interpretation Comments APPEARANCE FLUID (BEAKER) Slightly Cloudy Clear A (test code = 510) COLOR FLUID (BEAKER) (test Straw Colorless, Straw code = 511) RBC FLUID (BEAKER) (test 1360 /cu mm <=1 H code = 513) ADJUSTED WBC FLUID (BEAKER) 945 /cu mm <=5 H (test code = 1691) LINING CELLS (BEAKER) (test 95 /cu mm <=1 H code = 1590) NEUTROPHILS FLUID (BEAKER) 79 % (test code = 1656) LYMPHS FLUID (BEAKER) (test 8 % code = 488) MONO/MACROPHAGE FLUID 13 % (BEAKER) (test code = 489) EOSINOPHILS FLUID (BEAKER) 0 % (test code = 491) BASO FLUID (BEAKER) (test 0 % code = 492) CONTAINER BODY FLUID Sterile Vial (BEAKER) (test code = 2873) U/S, UNSPECIFIC GUIDANCE, [id number] 11:30:00FINAL REPORT Please see the report under accession #[id number]. Thank you. Jolie d: Randy Radford Verified Date/Time: 11/21/2019 11:30:50 Reading Location: [place] [address] Angio Body Reading Room US unspecific guidance interventional 2019-11-21 11:30:00Interface, External Ris In - 11/21/2019 11:32 AM CDTFINAL REPORT Please see the report under accession #[id number]. Thank you. Signed: Randy Radford Verified Date/Time: 11/21/2019 11:30:50 Reading Location: [place] [id number] Angio Body [facility] [id number] 10:38:00Referring: Dr. Najma Parrish for Exam:->hcc,cirrhosisFINAL REPORT CT and ultrasound Guided microwave ablation of hepatocellular carcinoma. History: Hepatocellular carcinoma in a patient with advanced cirrhosis of the liver involving segments 4B and segment 3 intracapsular/subcapsular locations. Status post previous TACE on 04/15/2019 and TARE for the right lobe of the liver on 08/11/2019. The tumors in the left lobe are small measuring approximately 1.9 and 1.5 cm in the maximumdimension respectively. Microwave ablation was recommended in a tumor board. Police Captain Senior: Randy Radford MD. Metal Products Viewer: Alex Richardson Modality: Ultrasound and CT DOSE REDUCTION: The examination was performed according to departmental dose-optimization program which includes automated exposure control, adjustment of the mA and/or kV according to patient size and/or use of iterative reconstruction technique. Radiation dose: 1742 mGy-cm. Se dation: Not applicable. Anesthesia: The procedure was performed under general anesthesia. Medicines:Ancef 2 g IV. Estimated blood loss: < 5 cc. Technique: Informed written consent was obtained. Discussion of risks, benefits, and alternatives were made with the patient. The patient expressed understanding and agreed to proceed. A universal timeout was performed prior to starting the procedure. The room personnel used personal protective equipment. The operators used sterile gloves in addition. The patient was laid supine on the CT table. General endotracheal anesthesia was administered. A preliminary ultrasound scan was performed through the region of interest to localize the target.The target lesion was recognized and a right upper quadrant access site was selected. The maximum dimensions of the lesion are 1.99 cm for the segment IVb and 1.8 cm for the segment 3 lesions respectively. A wide area of the abdomen and lower chest was prepped with chlorhexidine gluconate and draped in a maximal sterile fashion. We targeted the segment IVb lesion first. A dermatotomy was performed. Using real-time ultrasound guidance, the microwave antenna was placed in the target. At this time, a4 Nepalese centesis needle needle was advanced under the ultrasound guidance into the peritoneal cavity between the liver and the gallbladder. Approximately 100 cc of normal saline mixed with contrast medium at approximately 2% concentration was injected to displace the bowel from around the liver. A safe needle tract and position was confirmed with CT. The hydrodissection needle had retracted. There was inadvertent injection of the fluid into the gallbladder lumen. This was followed by microwave ablation of the target. The protocol used for ablation was to create a 3.5 cm ablation zone at 100 W of power with 6 minutes and 30 seconds of ablation time. Track ablation was not performed for this subcapsular lesion. The segment 3 lesion was very difficult and inconsistent to localize on ultrasound due to the cirrhotic liver and the lesion morphology. Therefore under ultrasound guidance, 22-gauge Chibaneedle was placed percutaneously into the suspected target site. A CT of the liver with low dose IV contrast in arterial and venous phase was performed to assess the outcome. There was no residual tumor visualized. There was no perihepatic hemorrhage, pneumothorax or other complication. The Chiba needle was seen to be in the area of washout confirming the location of the segment 8 tumor. This was followed by placement of the microwave ablation probe using a right upper quadrant approach following a dermatotomy and ultrasound guidance into the target area of the segment 3. This was followed by microwave ablation of the target of 3-3.5 cm ablation zone with 100 W power and 5 1/2 minutes of ablationtime. The ablation time was modified to prevent thermal damage to the abdominal wall. The microwave probe was withdrawn. A postprocedure CT was done through the region of interest to rule out any complications. It confirmed an excellent ablation zone in segment 3 of the liver at the expected site of the tumor as compared with the previous MRI and the recently noncontrast enhanced CT images. The presence of ascites facilitated safe performance of this procedure bilaterally hydrodissecting the liver from the parietal peritoneum of the anterior abdominal wall and the surrounding viscera. An aseptic dressing was applied. The patient was transferred to the postanesthesia care unit. After close observation, consisting of gradual advancement of diet to clear liquids, the patient did well without any untoward symptoms. The patient is a frail woman. After discussion with the referring oncologist, it wasdecided to admit the patient for overnight observation. Her pain was effectively controlled. Her diet was gradually advanced over the next 24 hours for solid diet. The patient did well and was discharged home in stable condition approximately 24 hours after the procedure. The patient was given an oral regimen of PRN p.o. analgesics, an antibiotic for five days, and stool softeners. Complications: None immediate. Specimen: Not applicable. Impression: Successful ultrasound and CT guided percutaneous microwave ablation of 2 separate HCC lesions, one in segment IVb and another in segment 3 of the liver as described above. Follow-up with cross-sectional imaging in 4-6 weeks. Thank you for the opportunity to assist in the care of your patient. Signed: Randy Radford MDReport Verified Date/Time: 11/21/2019 10:38:16 Reading Location: [facility] P[address] Angio Body Reading Room CT RFA tumor [id number] 10:38:00Interface, External Ris In - 11/21/2019 10:[address] and ultrasound Guided microwave ablation of hepatocellular carcinoma. History: Hepatocellular carcinoma in a patient with advanced cirrhosis of the liver involving segments 4B and segment 3 intracapsular/subcapsular locations. Status post previous TACE on 04/15/2019 and TARE for the right lobe of the liver on 08/11/2019. The tumors in the left lobe are small measuring approximately 1.9 and 1.5 cm in the maximum dimension respectively. Microwave ablation was re commended in a tumor board. Police Captain Senior: Randy Radford MD. Metal Products Viewer: Alex Richardson Modality: Ultrasound and CT DOSE REDUCTION: The examination was performed according to departmental dose-optimization program whichincludes automated exposure control, adjustment of the mA and/or kV according to patient size and/oruse of iterative reconstruction technique. Radiation dose: 1742 mGy-cm. Sedation: Not applicable. Anesthesia: The procedure was performed under general anesthesia. Medicines: Ancef 2 g IV. Estimated blood loss: < 5 cc. Technique: Informed written consent was obtained. Discussion of risks, benefits, and alternatives were made with the patient. The patient expressed understanding and agreed to proceed. A universal timeout was performed prior to starting the procedure. The room personnel used personal protective equipment. The operators used sterile gloves in addition. The patient was laid supine on the CT table. General endotracheal anesthesia was administered. A preliminary ultrasound scan was performed through the region of interest to localize the target. The target lesion was recognized and a right upper quadrant access site was selected. The maximum dimensions of the lesion are 1.99 cm for the segment IVb and 1.8 cm for the segment 3 lesions respectively. A wide area of the abdomen and lower chest was prepped with chlorhexidine gluconate and draped in a maximal sterile fashion. We targeted the segment IVb lesion first. A dermatotomy was performed. Using real-time ultrasound guidance, the microwave antenna was placed in the target. At this time, a 4 Nepalese centesis needle needle was advanced under the ultrasound guidance into the peritoneal cavity between the liver and the gallbladder. Approximately 100 cc of normal saline mixed with contrast medium at approximately 2% concentration was injected to displace the bowel from around the liver. A safe needle tract and position was confirmed with CT. The hydrodissection needle had retracted. There was inadvertent injection of the fluid into the gallbladder lumen. This was followed by microwave ablation of the target. The protocol used for ablation was to create a 3.5 cm ablation zone at 100 W of power with 6 minutes and 30 seconds of ablation time. Track ablation was not performed for this subcapsular lesion. The segment 3 lesion was very difficult and inconsistent to localize on ultrasound due to the cirrhotic liver and the lesion morphology.Therefore under ultrasound guidance, 22-gauge Chiba needle was placed percutaneously into the suspected target site. A CT of the liver with low dose IV contrast in arterial and venous phase was performed to assess the outcome. There was no residual tumor visualized. There was no perihepatic hemorrhage, pneumothorax or other complication. The Chiba needle was seen to be in the area of washout confirming the location of the segment 8 tumor. This was followed by placement of the microwave ablation probe using a right upper quadrant approach following a dermatotomy and ultrasound guidance into the target area of the segment 3. This was followed by microwave ablation of the target of 3-3.5 cm ablationzone with 100 W power and 5 1/2 minutes of ablation time. The ablation time was modified to prevent thermal damage to the abdominal wall. The microwave probe was withdrawn. A postprocedure CT was done t hrough the region of interest to rule out any complications. It confirmed an excellent ablation zonein segment 3 of the liver at the expected site of the tumor as compared with the previous MRI and the recently noncontrast enhanced CT images. The presence of ascites facilitated safe performance of this procedure bilaterally hydrodissecting the liver from the parietal peritoneum of the anterior abdominal wall and the surrounding viscera. An aseptic dressing was applied. The patient was transferred to the postanesthesia care unit. After close observation, consisting of gradual advancement of diet to clear liquids, the patient did well without any untoward symptoms. The patient is a frail woman. After discussion with the referring oncologist, it was decided to admit the patient for overnight observation. Her pain was effectively controlled. Her diet was gradually advanced over the next 24 hours for solid diet. The patient did well and was discharged home in stable condition approximately 24 hours after the procedure. The patient was given an oral regimen of PRN p.o. analgesics, an antibiotic for five days, and stool softeners. Complications: None immediate. Specimen: Not applicable. Impression: Successful ultrasound and CT guided percutaneous microwave ablation of 2 separate HCC lesions, one in segment IVb and another in segment 3 of the liver as described above. Follow-up with cross- sectional imaging in 4-6 weeks. Thank you for the opportunity to assist in the care of your patient. Signed: Randy Radford Verified Date/Time: 11/21/2019 10:38:16 Reading Location: [address] Body Reading [facility] [id number] 08:38:33Interface, External Ris In - 11/21/2019 8:38 AM CDTVentricular Rate 77 BPMAtrial Rate 77 BPMP-R Interval 154 msQRS Duration 92 msQ-T Interval 416 msQTC Calculation(Bazett) 470 msP [place] 80 degreesR [place] 78 degreesT [place] 45 degreesNormal sinus rhythmPossible Anterior infarct 06 Feb 2018Prolonged QTAbnormal ECGWhen compared with ECG of 06-FEB-2018 12:50,QRS axis has shifted from rightQT has lengthenedConfirmed by MD RAYRAY, DANI ([id number]) on 11/21/2019 8:38:28 [facility] POCT-GLUCOSE [id number] 16:57:00 Test Item Value Reference Range Interpretation Comments POC-GLUCOSE METER 237 mg/dL 70-110 H : TESTED A T [facility] 6720 (BEAKER) (test code = [facility], 1538) [id number]: [place] Worker/Techni gianluca ID = [id number] for CARLITO HIGHTOWER POCT-GLUCOSE [id number] 11:38:00 Test Item Value Reference Range Interpretation Comments POC-GLUCOSE METER 140 mg/dL 70-110 H : TESTED A T [facility] 6720 (BEAKER) (test code = [facility] Marti [facility], 1538) [address]: [place] Worker/Techni gianluca ID = [id number] for CARLITO HIGHTOWER POCT-GLUCOSE [id number] 08:11:00 Test Item Value Reference Range Interpretation Comments POC-GLUCOSE METER 134 mg/dL 70-110 H : TESTED A T [facility] 6720 (BEAKER) (test code = [facility], 1538) [address]: [place] Worker/Techni gianluca ID = [id number] for CARLITO HIGHTOWER COMPREHENSIVE METABOLIC [id number] 07:36:00 Test Item Value Reference Range Interpretation Comments TOTAL PROTEIN 6.1 gm/dL 6.0-8.3 (BEAKER) (test code = 770) ALBUMIN (BEAKER) 3.1 g/dL 3.5-5.0 L (test code = 1145) ALKALINE PHOSPHATASE 133 U/L 40-150 (BEAKER) (test code = 346) BILIRUBIN TOTAL 2.0 mg/dL 0.2-1.2 H (BEAKER) (test code = 377) SODIUM (BEAKER) (test 135 meq/L 136-145 L code = 381) POTASSIUM (BEAKER) 4.1 meq/L 3.5-5.1 (test code = 379) CHLORIDE (BEAKER) 100 meq/L 98-107 (test code = 382) CO2 (BEAKER) (test 26 meq/L 22-29 code = 355) BLOOD UREA NITROGEN 23 mg/dL 7-21 H (BEAKER) (test code = 354) CREATININE (BEAKER) 1.05 mg/dL 0.57-1.25 (test code = 358) GLUCOSE RANDOM 162 mg/dL 70-105 H (BEAKER) (test code = 652) CALCIUM (BEAKER) 8.4 mg/dL 8.4-10.2 (test code = 697) AST (SGOT) (BEAKER) 154 U/L 5-34 H (test code = 353) ALT (SGPT) (BEAKER) 78 U/L 6-55 H (test code = 347) EGFR (BEAKER) (test 52 mL/min/1.73 ESTIMA LUCIAN GFR IS code = 1092) sq m NOT ACCURATE CREATININE CLEARANCE IN PREDICTING GLOMERULAR FILTRATION RATE . ESTIMATED GFR I S NOT APPLICABLE FOR DIALYSIS PATIEN TS. [place] Worker ID - AAMIR MSpecimen slightly ictericCB (Hemogram only)2019-11-19 04:54:00 Test Item Value Reference Range Interpretation Comments WBC (test code = 6690-2) 4.9 3.5- 10.5 K/L RBC (test code = 789-8) 3.76 3.93- 5.22 M/L L MCHC (test code = 786-4) 29.6 32.2- 35.5 GM/DL L Hematocrit (test code = 4544-3) 30.4 % 34.1-44.9 L MCV (test code = 787-2) 80.9 fL 79.4-94.8 MCH (test code = 785-6) 23.9 pg 25.6-32.2 L RDW (test code = 788-0) 18.0 % 11.7-14.4 H Platelets (test code = 777-3) 87 150- 450 K/CU MM L MPV (test code = 44091-6) 10.5 fL 9.4-12.3 nRBC (test code = 413) 0 0- 0 /100 WBC Lab Interpretation (test code = Abnormal 90236-2) [facility] 04:54:00 Test Item Value Reference Range Interpretation Comments WHITE BLOOD CELL COUNT (BEAKER) 4.9 K/ L 3.5-10.5 (test code = 775) RED BLOOD CELL COUNT (BEAKER) 3.76 M/ L 3.93-5.22 L (test code = 761) HEMOGLOBIN (BEAKER) (test code = 9.0 GM/DL 11.2-15.7 L 410) HEMATOCRIT (BEAKER) (test code = 30.4 % 34.1-44.9 L 411) MEAN CORPUSCULAR VOLUME (BEAKER) 80.9 fL 79.4-94.8 (test code = 753) MEAN CORPUSCULAR HEMOGLOBIN 23.9 pg 25.6-32.2 L (BEAKER) (test code = 751) MEAN CORPUSCULAR HEMOGLOBIN CONC 29.6 GM/DL 32.2-35.5 L (BEAKER) (test code = 752) RED CELL DISTRIBUTION WIDTH 18.0 % 11.7-14.4 H (BEAKER) (test code = 412) PLATELET COUNT (BEAKER) (test code 87 K/CU MM 150-450 L = 756) MEAN PLATELET VOLUME (BEAKER) 10.5 fL 9.4-12.3 (test code = 754) NUCLEATED RED BLOOD CELLS (BEAKER) 0 /100 WBC 0-0 (test code = 413) POCT-GLUCOSE [id number] 22:54:00 Test Item Value Reference Range Interpretation Comments POC-GLUCOSE METER 335 mg/dL 70-110 H : TESTED A T [facility] 6720 (BEAKER) (test code = [facility], 153) [address]: [place] Worker/Techni gianluca ID = [id number] for Sarah Valencia POCT-GLUCOSE [id number] 18:15:00 Test Item Value Reference Range Interpretation Comments POC-GLUCOSE METER 370 mg/dL 70-110 H : TESTED A T [facility] 6720 (BEAKER) (test code = [facility], 153) 72645: [place] Worker/Techni gianluca ID = [id number] for RADHA ROGERS POCT-GLUCOSE [id number] 11:34:00 Test Item Value Reference Range Interpretation Comments POC-GLUCOSE METER 151 mg/dL 70-110 H : TESTED A T [facility] 6720 (BEAKER) (test code = [facility], 153) 49774: [place] Worker/Techni gianluca ID = [id number] for JOE KILLIAN CBC W/PLT COUNT & AUTO [id number] 09:47:00 Test Item Value Reference Range Interpretation Comments WHITE BLOOD CELL COUNT (BEAKER) 4.3 K/ L 3.5-10.5 (test code = 775) RED BLOOD CELL COUNT (BEAKER) 3.80 M/ L 3.93-5.22 L (test code = 761) HEMOGLOBIN (BEAKER) (test code = 9.1 GM/DL 11.2-15.7 L 410) HEMATOCRIT (BEAKER) (test code = 30.7 % 34.1-44.9 L 411) MEAN CORPUSCULAR VOLUME (BEAKER) 80.8 fL 79.4-94.8 (test code = 753) MEAN CORPUSCULAR HEMOGLOBIN 23.9 pg 25.6-32.2 L (BEAKER) (test code = 751) MEAN CORPUSCULAR HEMOGLOBIN CONC 29.6 GM/DL 32.2-35.5 L (BEAKER) (test code = 752) RED CELL DISTRIBUTION WIDTH 18.1 % 11.7-14.4 H (BEAKER) (test code = 412) PLATELET COUNT (BEAKER) (test code 85 K/CU MM 150-450 L = 756) MEAN PLATELET VOLUME (BEAKER) 10.2 fL 9.4-12.3 (test code = 754) NUCLEATED RED BLOOD CELLS (BEAKER) 0 /100 WBC 0-0 (test code = 413) NEUTROPHILS RELATIVE PERCENT 82 % (BEAKER) (test code = 429) LYMPHOCYTES RELATIVE PERCENT 7 % (BEAKER) (test code = 430) MONOCYTES RELATIVE PERCENT 9 % (BEAKER) (test code = 431) EOSINOPHILS RELATIVE PERCENT 1 % (BEAKER) (test code = 432) BASOPHILS RELATIVE PERCENT 0 % (BEAKER) (test code = 437) NEUTROPHILS ABSOLUTE COUNT 3.56 K/ L 1.56-6.13 (BEAKER) (test code = 670) LYMPHOCYTES ABSOLUTE COUNT 0.31 K/ L 1.18-3.74 L (BEAKER) (test code = 414) MONOCYTES ABSOLUTE COUNT (BEAKER) 0.41 K/ L 0.24-0.36 H (test code = 415) EOSINOPHILS ABSOLUTE COUNT 0.03 K/ L 0.04-0.36 L (BEAKER) (test code = 416) BASOPHILS ABSOLUTE COUNT (BEAKER) 0.01 K/ L 0.01-0.08 (test code = 417) IMMATURE GRANULOCYTES-RELATIVE 1 % 0-1 PERCENT (BEAKER) (test code = 2801) Basic Metabolic [id number] 08:36:00 Test Item Value Reference Range Interpretation Comments Sodium (test code = 135 meq/L 136-145 L 2951-2) Potassium (test code = 4.0 meq/L 3.5-5.1 2823-3) Chloride (test code = 100 meq/L 98-107 2075-0) CO2 (test code = 26 meq/L 22-29 2028-9) BUN (test code = 22 mg/dL 7-21 H 3094-0) Creatinine (test code 0.99 mg/dL 0.57-1.25 = 2160-0) Glucose (test code = 181 mg/dL 70-105 H 2345-7) Calcium (test code = 8.3 mg/dL 8.4-10.2 L 94441-6) EGFR (test code = 56 mL/min/1.73 [place] [address]-7) NOT ACCURATE CREATININE CLEARANCE IN PREDICTING GLOMERULAR FILTRATION RATE . ESTIMATED GFR I S NOT APPLICABLE FOR DIALYSIS PATIENTS. JEFF (test code = JEFF) [place] Worker ID - ELSA Martinez Lab Interpretation Abnormal (test code = 73915-5) [facility] METABOLIC [id number] 08:36:00 Test Item Value Reference Range Interpretation Comments SODIUM (BEAKER) 135 meq/L 136-145 L (test code = 381) POTASSIUM (BEAKER) 4.0 meq/L 3.5-5.1 (test code = 379) CHLORIDE (BEAKER) 100 meq/L 98-107 (test code = 382) CO2 (BEAKER) (test 26 meq/L 22-29 code = 355) BLOOD UREA NITROGEN 22 mg/dL 7-21 H (BEAKER) (test code = 354) CREATININE (BEAKER) 0.99 mg/dL 0.57-1.25 (test code = 358) GLUCOSE RANDOM 181 mg/dL 70-105 H (BEAKER) (test code = 652) CALCIUM (BEAKER) 8.3 mg/dL 8.4-10.2 L (test code = 697) EGFR (BEAKER) (test 56 mL/min/1.73 ESTIMA LUCIAN GFR IS code = 1092) sq m NOT ACCURATE CREATININE CLEARANCE IN PREDICTING GLOMERULAR FILTRATION RATE . ESTIMATED GFR I S NOT APPLICABLE FOR DIALYSIS PATIEN TS. [place] Worker ID Den HUNTER [id number] 07:47:00 Test Item Value Reference Range Interpretation Comments PARTIAL THROMBOPLASTIN TIME 34.5 seconds 22.5-36.0 (BEAKER) (test code = 760) PROTHROMBIN TIME/[id number] 07:46:00 Test Item Value Reference Range Interpretation Comments PROTIME (BEAKER) (test code = 16.1 seconds 11.9-14.2 H 759) INR (NATE) (test code = 370) 1.33 <=5.90 Effective 08/04/2018: PT Reference Range ChangeNew: 11.9-14.2 Previous: 11.7- 14.7RECOMMENDED COUMADIN/WARFARIN INR THERAPY RANGESSTANDARD DOSE: 2.0-3.0 Includes: PROPHYLAXIS for venous thrombosis, systemic embolization; TREATMENT for venous thrombosis and/or pulmonary embolus.HIGH RISK: Target INR is2.5-3.5 for patients wiht mechanical heart valves.SARS-COV2/RT-PCR ([facility]) 2019-11-16 11:34:00 Test Item Value Reference Range Interpretation Comments SARS-COV2/RT-PCR (test Negative Not Detected, Negative, code = 9438427) See external report for linked test SARS-COV-2 PERFORMING LAB [facility] (test code = 8911903) Negative result for this test determines that SARS-CoV-2 RNA was not present in the specimen above the Limit of Detection (LOD). However, Negative results do not preclude SARS-CoV-2 infection and should not be used as the sole basis for treatment or patient management decisions. Negative results mustbe combined with clinical observations, patient history, and epidemiological information. A false negative result may occur if a specimen is improperly collected, transported or handled. A false negative result should be considered if patient's recent exposures or clinical presentation indicate that COVID-19 (SARS-CoV-2) is likely and diagnostic tests for other causes of illness are negative. Re-testing should be considered in cases of suspected false negatives.The limit of detection for this assay is 800 copies/mL.This SARS CoV-2 test is a real-time RT-PCR test intended for the qualitative detection of nucleic acid from SARS-CoV-2 in a nasopharyngeal swab specimen collected from individuals suspected of COVID-19 by their healthcare provider.This test has not been Food and Drug [...] is revoked under Section 564(g) of the Act.Fact Sheet for Healthcare Providers:https://www.[employer]/sites/default/files/product/documents/Fact_Shee o_TM_Twgghdiak_Itzb_XDDJ-RxQ-8.pdfFact Sheet for Healthcare Patients:https://www.[employer]/sites/default/files/product/ documents/Bkdx_Lpfif_Hhntwbpe_Usse_URNC-PhT-2.pdfPerforming Laboratory:[facility] [facility] [place], [place] [id number] 16:58:00 Test Item Value Reference Range Interpretation Comments Case Report (test code Medical Cytology = 104) Report Case: [id number] Authorizing Provider: Peggy Robb MD Collected: 11/11/2019 08:21 AM Ordering Location: [facility] Radiology Main Received: 11/15/2019 09:37 AM Pathologist: Alberto Caba MD Specimen: Peritoneal Fluid DIAGNOSIS (test code = [id number] 3220) FuZzEwMzNcZnRuYmpcdWMx QEbpwuAdBDzio2ZaX4UgGr AwMFxhbnNpXGRlZmxhbmcx EHGcANG2ovOyBJMhTZqfDM FpKSsyTy9lgMNqrUaxIyNz BRJlr8qjjsOIbpvaxOk3q2 doLCAsLvC9oHZzVLxnS5ol qbNrqHFnOCHfFIy2sN55HA UfcD2lvLKeCAuhmkCzDmY3 ZYisYQHkMwU1LHCebTRsRV DbH3ifOQPbHAsfWLHmCSgi gHTxZEK5uLuir8U8nRVveQ XztGlaTfJdNzQwZFPMb6Hy HKx8sQyhO6VyYSOaPrP1dG QgUGFyYWdyYXBoIEZvbnQ7 dW58FEugfgM2cRTkq9Rdo2 0ap345iN9suCAuTON2SARl FZJttHDiFPQoNMH7ZHNhqY CxM4t2XqTnvKXmT2M6EiLr pCAmT1E7MiVbpDYrW8B9Zq JojLRzZGIalQXsPk7eoDCi bPTvtc6agx01TVK3r7EfaM tbWBX2KJD4McUxBy6sgBBj YYSjCV3wGmGypFStWPCilm 27vMzzTYxhvrLexA6dXgHo GUXdwLSaWGTmRV5xmYPvNI EmgN1uyfdhVMQaRxMxzhhu WMKzqDxwrdSbHy2zoSuqBY K1YCllP3srlG4sOmD9PRwt Y0jeeZ2yRHn6BKuioUW3VN ZlfK4rJK4drwkax0hxRcDc RC6govebo4sdGtXdYY7qzy z2e3zyJyFyBA1dhzikd3io NzIwXGhlYWRlcnkwXGZvb3 XybuswEZNau6HwM9HbaWka G50udXafV55dVRHueOfgwI 2lpBafpR4mLnLzYaGwLOxl bFxwbGFpblxmMVxmczIwXG nagydbXXWfXTsjY4ttWyOl UXFrpRknITjqn6UwFPFtQB ZzMjAgUEVSSVRPTkVBTCBG CZMKHBUzB0oHQ8EPFO4AMA lcnCsnGEHkGDJrVO2BP2RE NKQZMVBEFmHHIWyUF66DPn NZXHBhciAgICAgIEZFVyBM WC5LJD7GMFAMWvJCWvGQER 2IAWQvzg20UWS1TeSap9G2 WIK6NQCsSFHbh1qyNJKfbP FuZzEwMzNcZnRuYmpcdWMx PVPqXaLpp3cfj238pFGwk5 iyNPLmZlS2kHMuSVJriPLr Z524WUZaDBpwl0aeo4TuBC BwhGQop2A6EBQEyspilUh6 rTrlD79vu2B1RoxsY7vjBQ SvYVQgD0EhWU3aFQBcMma7 ZGG4ANW5BCKzZJTqC9IvJS 2yYSErfQVvSJm0v7oshWrb LXIqHFM2s0zpHKcmyyMfGR 1svw3bcUe2b2iaofKwUSLc SXCsvADXRGTgY8VozPpvJg 1pvTu9qTaxBeerCVF6Vie7 CB1vij40wja4wEwlFUZczd fuIqJ8JLdoLXZpwnnfHGk4 ZPgpGZUysGJ1GFBcpKChC3 IuFVSrNF2goyk0XCX9TYfz JKPtRlU8MOKlrUZsWVKkvM smUQdys259IVQ1PvIjTJ0p U5Hbl7I7zX0wzPRcONYjbQ BcHyBrRWMxwp7ixCFyICda n6ApFFR0jqN3mEHubSDoOS JkHqM6OHctLD6fzw81ZYBe BLS0av3lxYQkmRpgqeUvpI AgXKcfY2CoUNSql102MFLj G0HvCBGyw6L6tzVjCtUhGU AdnVJ2urK2TMAoND3kofyf u9mdNDhlAOaqCRVohwT7rd Z0YEYcwZQnE5KguB3aOWYi XB2dfbrnr7vlPTO3UQaaQI XlXKH4PnGjMMCen7Lgnhz3 EkEfa8TumZKmJJjdZ93du3 29EWBaheElK3ouuRVhcgll jXKzouftEHqriwC3UJYsDF vefcvoURWnRJbtN7ulPfUh MPHlaNwiFHreg2DvPVEnDR NnKcHeiHMfOSDvVmh7LZZi jEHfVAKcPqAlG4niatpmBd ITYZBjv9gkW2adxRGQoYBy D5WxLKjvpqOpTSsgFTzcGJ QoLUH3ET7kLOAuMktwJZF3 fQ== CPT Code(s) (test code t5jkzFShXQFlqZZaLoQkVW = 3357) LyKXLdl2nvLVMgeVSzYrRd MzNcZnRuYmpcdWMxXGRlZm Uab5aek056iHLaj7qkCLHb FuI2vNLiXZEigQVnG010s9 yoz9bacmRgwFY6ZRYeDNV9 KPxrneCrkdO5FMtlbGAgIm W8HEqmsoMaQNgtzrSnesDz Cwy7YTEtZ329JLI8rTthm7 ojFLW0XLFaECMzLtJkFy9t kTBoR520LTYoVWJOHHYjeU e8JNChxzBnslHwiIPFc493 V123y8prHQUdpaHooAsSpz plq9lxM104MIUeqTCrgwYc BhPyGLRhfTDlhHL5CPOjPQ 1wdeamKwXqEL5zaiihIkBz JT5gwzx7AsApJW2xukdjQk AtVKggRRHiywzjOSMqt3Xf omjpCH4wY3Geg3P9gY1dpV XhYKMaaPRbSpTrJZNxmp1h wMPcGCuou5GrPII5ckM3eF PeoAGpIVXfHG78Hasrf7Hj RtbpIZT8AUPjmjSyn6Fwk4 eoYbYplrJqL6vtV4KkIGIs SMAiLBRbFdOlddNxb2Vbq0 JqoJMbwNz7f1wrQINmLFZv eOpgz3ycYPQ4PZErY0F4eA Bbd9kyMWrkZRPzyYP9jaqi XEcdSSLvskN0cleiEPzyOB LkgEG8zxctXOlmGQZbBmX9 iwlvHEkkCKOaGAK3SSdkz7 75CHT6TLihHflnLNjuDLIe bmNvbnRccGduZGVjXHBsYW luXHBsYWluXGYwXGZzMjRc sPndvTrooA4pRlSvPaNnUL rlBM8zMPHvV1zklGPnOUWe PZMiW4mpDfKdzQ6brPrjVT kxgaMbHQd9URB7TXIggh6= CLINICAL DATA (test z9scwKHqABGpoQBiQhTqZW code = 3355) RzWHMqj9aaFFWkpGYdTuIh MzNcZnRuYmpcdWMxXGRlZm Jll9rei476fFEtq9npVEZl XbV4eQDgDUQhdLXbA401d0 zau8xvvoIivWU8ZKBsCUB6 ZQwfviQwdrF7ZYvvyQBaSa N5MBiloxYwSFkkcaEmmdLv Jtg9OQHeO228DDS8hNnbw0 vvXVW6FEHlXXZiMaCxTr5x jXDcI604BHVfERGXZDQecK w4XWWzauXaceMtaGXWk815 M719k9caGADviuFolBqAqq lvl7fsX157QGShiMJnfqEs DgOySLIfwMKknTL6TVMkJN 4byztfFaWnNZ6wvtgiNdCm HD1tvyp0AuYsHI1ookinQy AaLErnFKNlmxqwTIGsl8Me mdvmOH1vN4Jdq8Y8oH4piP HdPUQlhPYcLfJaAMBfmk1h bYYdKAara4BzOUU0jpA3fZ HcaHPwTHDiTV68Poomk6Gg EyfmIGX1KIHjgaKmt4Dyf3 paVuAbcwLfP8hkM1ZzHMHs KZNaNZApVfTxnwXav2Sva2 YxaUKtzFh9v7kkYYNpHFQb bTxco5gjORB3RXNaK5M4eS Oee1gcMHuoQPWziVC2pbwh HWtnJLCeruE4kghmQMvgYI MufRJ2isloAGzbQVWsLoC2 ujucXOvxJBQfJBM8HPhgc4 70XBC2DTeyOtvkIVweTELu bmNvbnRccGduZGVjXHBsYW luXHBsYWluXGYwXGZzMjRc kRaqeRcjzX0jSxTqKoQcMC kdMP4aTBWvI5hxiYOgGEXw SXQmV0jmJfYolJ1ljQzvEA figrQrJTWnE8x5VVYpVJkf w1Ljazvvl7ZgoQa8FHCzL4 PnK4PuLPHdwk0= SPECIMEN SOURCE (test w3lguBYnYUZopYZsTsOdDG code = 3377) XvHDSfo9vcKKRrvOYjRdZy MzNcZnRuYmpcdWMxXGRlZm Gll0fkn022xTVhn8rqZUNm IbM4jNYiMWMyzJRlT620n8 uio0fzmxCycNK5YFLtYGZ5 QQzhfyFetqS8WRajkTBdLh F2CYrcavTxAVldasVxrbUf Mwa4XMZmB541FBP1yYtqb9 omBNE3NCRbIVPoLxSmRe7z zSTmQ244GZZoUSNTJWOetF e0RVIrbwMctbFubUGNy628 R932a3woTHXmykUiyCyZpk vsk3uxD429BELnvISvzmQx XaIeXJLgkSMtyVB3GUBdLD 5ygpftNeAmXG3feqtwBlLs PE1uvct7KeBkUZ8bialtPj IuCSgzIIKbqxbzLGYeq5Su duvaCB5fV8Hnz2B1cP3oqT WsOIEvcOJaEtSqYZIand6w kJEjXBlai1UpYWW1dxY4yW UedHNvKPTqNZ87Tqmss2Ur BsabGST5UWTqshQtd7Xcg1 ieJtNzqmPnU3fnJ5LzQMHw LUNbHBHxGxHpshVhh0Uwp3 BmxNJolUa4f2wpCGOuYMSz bDwch4ndDWB8ZBGeU3I6zU Ryp1rmSVbaRRPfxKE3oyac HFrcVVGuriV8zbyiKKsfUM LmrNO8klzxPIvlFRJuTqK1 crhaCGicBJIgPFE1XNywk2 34JAB5WTriWyemYOsiDPHy bmNvbnRccGduZGVjXHBsYW luXHBsYWluXGYwXGZzMjRc dBgeiQzusZ3nRvEiVkMlDH owQD1eTNMzP8cvlQLuAEZy GETsU5zxJnXslH4ssKwbIH watqDaGWETAxuTW93HASbj RkxVSURccGFyfQ== GROSS DESCRIPTION (test g7cuwMWnZZRldDQaNaWyMP code = 3366) HqSYVgx3mnNKGsfBRyWtHb MzNcZnRuYmpcdWMxXGRlZm Lrg3iqd726hRPvn7urWFQz FlR8fFXcIKIjpEWcE034WQ NjKNbhd7jfm7DlTVWzrIZt w9R1UEGQcaemtQx9bYbtB2 2ea7W1HlczC3pqADZeNIVh Y8FqDB7lXQWjRxm1IZG5VM E9ZPBkGFKyA9KxMZ8aBXIv cRKgABr6l2eszKqtFBSjQS K3f3wrFNwrlqZeKN8uxb4k iHf3i2ogotIiVSDeZGKazL RZHMAjD6XivHfvFz5kiRo7 cVmuOoqtCQW8Jbo8WP4kzb 20bjq6rJrqQGKmhirlGxS8 CRtaMRSusdlkQRz8HHvpWI JnbDcyMFxtYXJncjcyMFxt YXJndDcyMFxtYXJnYjcyMF ykHJQpIVG0VFvwf927BXM5 WZruy2fre5emhFCxMxp9AP GhEhNwHxmcQBrhp7Rnc7eo KUIybg4zIJD7iFVmuFjmy1 F3cYNzGZZnbXWnoxYgNVWo VnB3TGoqAC7nxs23WOYvLZ H9xq4evGYdwHxhgbSwdUBo CFgbN6VeLTTkx604ZWAoC5 YrHDCxj6R6ugCoYlQfTXLr kKX1wlP9EUZjECe2pFHxjo M5ewNulAIkQ4ybiP80SuCv gBGzZ6KjpY64NoCwuQLvQ6 ZwgI10PcApxHYgC1VpoJ53 CbMkkDDeODUeaAToPn6qiE LwvWCnr4WdaYDjWUsmT22d q077LEZuguWkL2ashTBeav jhmGLfwnclNOhvtrG0HLEq XHBsYWluXGYxXGZzMjJcbG FuZzEwMzNcaGljaFxmMVxk AzPmPTNpZFudO1gwQjSmHp RzWnKvLG6clsY1JWrpe5il Dby7kFJ6FBIxZ8p6r3PmvU 2qAGscs8FwIJ2nnIxpUTMf ZWNpbWVuIGZvciBjZWxsIG Hqu9HeYFpyTIJsB05myGTb yLWvFoKhZGY6TcFbjYNhKL CjM0GjbwUbOnFgBYW9BnVd cGFyfQ== MICROSCOPIC DESCRIPTION w3rmxMBmSRMkrODyJtUlJE (test code = 3371) JaIWRkq5mtDUDovTRnNhMv MzNcZnRuYmpcdWMxXGRlZm Ogx6bdr024jIBxi4vmQVGh AoD2eQKzQLHlhVTiR791l6 ewy5puvnBniCQ0WKIqYWF7 NMortcPhpbQ3YUutaAFhWy D7KBttwaTwDFvqszJmjtCm Dfr9UNCwG493TXJ6mHrig1 kbDES8XBJeHLXwGkRjLr0p fDYyB188TCEfYQGVUVNflA l9MMErarMdsiEhlMRKw035 T482r4wqHZKdmvXimDnVxx etr3ciY718JSEbrVZkymKo OuWqYDTkcCNqlIT9TDRgIA 1hbqukOmHjHD6pmuuyOlWm XO2jqfo2JmJmKQ7ypjodSe RyMPgfTYQsqecmYZMfk1Ty haudXD7bB2Hwo3E3sH6ksW HmQFEihICyOdPoNSOnvf1b aCBoQBgpc8IwJMM5vgB5lQ VuhVFdAZDiRC42Vppgj1Pk QjjcGIX1BURivfCnd5Nnr9 hsQcRsbsFbE8jrH4SpRNAk OGVqEMIuTvRfwjJet5Cos2 GsoHCmlCx1d7erABIgOYPl wSbym7gpVCS3HMBhH1O4bM Ubt5nsVYmyRJObmIY8rxew CFhpJMNklzQ5hvbhMHhdPI VmqVZ6qfboJKsmRTFbYlC6 qzjqPXahMKWqWJE2XWldi3 48LDG2APjhCgkyXTjmQFNi bmNvbnRccGduZGVjXHBsYW luXHBsYWluXGYwXGZzMjRc lUcaoDdmbE7oGjZcInUbEY ntWN4oPMYqA3tlpPZfUOTe GNVrQ0oeAyDnwR4cjOajIB fmasTeKQZizvLywr8qVL6n cGFyfQ== STATEMENT OF ADEQUACY Satisfactory (test code = 2757) Gross assessment was [facility] performed at ([facility], = 2777) Department of Pathology, [address] [place] [id number], Technical component was [facility] performed at ([facility], = 2778) Department of Pathology, [address] [place] [id number], Professional component [facility] was performed at ([facility], code = 2779) Department of Pathology, [address] [place] [address], [facility] 16:58:00Medical Cytology Report Case: [id number] Aut horizing Provider: Peggy Robb MD Collected: 11/11/2019 08:21 AM Ordering Location: [facility] Radiology Main Received: 11/15/2019 09:37 AM Pathologist: Alberto Caba MD Specimen: Peritoneal Fluid PERITONEAL FLUID (CYTOSPINS): - NEGATIVE FOR MALIGNANCY FEW LYMPHOCYTES PRESENT Signing Pathologist Direct Phone Line: [phone] signed by Alberto Caba MD on 11/15/2019 at 4:58 [id number], history of liver cancerPERITONEAL FLUID3 mls yellow fluid; 4 cytospins (not enough specimen for cell block)Collected: [id number]: [id number].[facility], Department of Pathology, [address] [place] [id number], [facility], [address] [place] [id number], [facility], [facility], [address] [place] [id number], M/S, [id number] 17:07:00Referring: Dr. Najma Sultanainister 200 mL of albumin 25% (50 grams) IV x1 after paracentesis if 3 or more liters removed.Send ascitic fluid for cell count and differential.Labs to be ordered:->Other (please add comment)cell count and diffReason for Exam:->hcc,ascitisFINAL REPORT Ultrasound guided paracentesis Clinical History: Ascites. Sedation: None. Police Captain Senior: Elaine Blake PA-C Supervising Physician: Nani Clark MD Metal Products Viewer: None. Estimated Blood Loss: < 1 mL. Specimen: 2100 mL of clear yellow fluid, samples sent to laboratory. Technique: Informed consent was obtained. The risks of pain, bleeding, infection, bowel perforation, injury to adjacent structures, and adverse medication reactions were discussed with the patient. After informed consent was obtained, the patient's abdomen was scanned. The right lower quadrant of the abdomen was selected for paracentesis. After the largest fluid pocket area was marked, and the anterior abdominal wall was evaluated with color Doppler to exclude presence of blood vessels traversing the area, the skin was prepped and draped in the usual sterile manner. After local anesthesia was achieved with lidocaine, a 5 Nepalese one-step catheter was advanced into the peritoneal cavity under ultrasound guidance. After completion of drainage, the catheter was removed. There was no evidence of complication. Impression:Successful ultrasound guided paracentesis. Signed: Nani Reed MDReport Verified Date/Time: 11/11/2019 17:07:03 Reading Location: [address] Ultrasound Reading Room BODY FLUID CELL COUNT WITH DIFFERENTIAL 2019-11-11 11:00:00 Test Item Value Reference Range Interpretation Comments APPEARANCE FLUID (BEAKER) (test Clear Clear code = 510) COLOR FLUID (BEAKER) (test code Yellow Colorless, Straw A = 511) RBC FLUID (BEAKER) (test code = 300 /cu mm <=1 H 513) ADJUSTED WBC FLUID (BEAKER) 860 /cu mm <=5 H (test code = 1691) LINING CELLS (BEAKER) (test code 0 /cu mm <=1 = 1590) NEUTROPHILS FLUID (BEAKER) (test 11 % code = 1656) LYMPHS FLUID (BEAKER) (test code 39 % = 488) MONO/MACROPHAGE FLUID (BEAKER) 50 % (test code = 489) EOSINOPHILS FLUID (BEAKER) (test 0 % code = 491) BASO FLUID (BEAKER) (test code = 0 % 492) CONTAINER BODY FLUID (BEAKER) Sterile Cup (test code = 2873) SLIDE SENT TO CYTOLOGY FOR FURTHER REVIEW. PLEASE FOLLOW UP.U/S, PARACENTESIS 2019-11-01 16:36:00Referring: Dr. Najma Sultanainishayder 200 mL of albumin 25% (50 grams) IV x1 after paracentesis if 3 or more liters removed.Send ascitic fluid for cell count and differential.Labs to be ordered:->Other (please add comment)cell count and diffReason for Exam:->hcc,ascitisFINAL REPORT Ultrasound guided paracentesis. Clinical History: Ascites. Sedat ion: None. Police Captain Senior: Joellen Cuellar PA-C Metal Products Viewer: None. Estimated Blood Loss: < 1 cc. Specimen: 4000 cc of cloudy yellow fluid, samples sent to laboratory. Technique: Informed consent was obtained. The risks of pain, bleeding, infection, bowel perforation, injury to adjacent structures, and adverse medication reactions were discussed with the patient. After informed consent was obtained, the patient's abdomen was scanned. The RLQ of the abdomen was selected for paracentesis. After the largest fluid pocket area was marked, and the anterior abdominal wall was evaluated with color Doppler to exclude presence of blood vessels traversing the area, the skin was prepped and draped in the usual sterile manner. After local anesthesia was achieved with 2% lidocaine, a 5French one-step catheter was advanced into the peritoneal cavity under ultrasound guidance. After completion of drainage, the catheter was removed. There was no evidence of complication. Impression:Succ essful ultrasound guided paracentesis. Signed: Roger Manning MDReport Verified Date/Time: 11/01/201916:36:59 Reading Location: [address] Ultrasound Reading Room FLUID CELL COUNT WITH [id number] 12:07:00 Test Item Value Reference Range Interpretation Comments APPEARANCE FLUID (BEAKER) (test Hazy Clear A code = 510) COLOR FLUID (BEAKER) (test code = Straw Colorless, Straw 511) RBC FLUID (BEAKER) (test code = 185 /cu mm <=1 H 513) ADJUSTED WBC FLUID (BEAKER) (test 382 /cu mm <=5 H code = 1691) LINING CELLS (BEAKER) (test code 61 /cu mm <=1 H = 1590) NEUTROPHILS FLUID (BEAKER) (test 17 % code = 1656) LYMPHS FLUID (BEAKER) (test code 15 % = 488) MONO/MACROPHAGE FLUID (BEAKER) 68 % (test code = 489) EOSINOPHILS FLUID (BEAKER) (test 0 % code = 491) BASO FLUID (BEAKER) (test code = 0 % 492) CONTAINER BODY FLUID (BEAKER) EDTA Tube (test code = 2873) U/S, [id number] 17:27:00Referring: Dr. Najma Sultanainishayder 200 mL of albumin 25% (50 grams) IV x1 after paracentesis if 3 or more liters removed.Send ascitic fluid for cell count and differential.Labs to be ordered:->Other (please add comment)cell count and diffReason for Exam:->hcc,ascitisFINAL REPORT Ultrasound guided paracentesis Clinical History: Ascites. Sedation: None. Police Captain Senior: Elaine Blake PA-C Supervising Physician: Nani Clark MD Metal Products Viewer: None. Estimated Blood Loss: < 1 mL. Specimen: 3800 mL of clear yellow fluid, samples sent to laboratory. Technique: Informed consent was obtained. The risks of pain, bleeding, infection, bowel perforation, injury to adjacent structures, and adverse medication reactions were discussed with the patient. After informed consent was obtained, the patient's abdomen was scanned. The right lower quadrant of the abdomen was selected for paracentesis. After the largest fluid pocket area was marked, and the anterior abdominal wall was evaluated with color Doppler to exclude presence of blood vessels traversing the area, the skin was prepped and draped in the usual sterile manner. After local anesthesia was achieved with lidocaine, a 5 Nepalese one-step catheter was advanced into the peritoneal cavity under ultrasound guidance. After completion of drainage, the catheter was removed. There was no evidence of complication. Impression:Successful ultrasound guided paracentesis. Signed: Nani Reed MDReport Verified Date/Time: 10/28/2019 17:27:59 Reading Location: [facility] [id number] Ultrasound Reading Room BODY FLUID CELL COUNT WITH DIFFERENTIAL 2019-10-19 18:21:00 Test Item Value Reference Range Interpretation Comments APPEARANCE FLUID (BEAKER) (test Clear Clear code = 510) COLOR FLUID (BEAKER) (test code = Yellow Colorless, Straw A 511) RBC FLUID (BEAKER) (test code = 4 /cu mm <=1 H 513) ADJUSTED WBC FLUID (BEAKER) (test 218 /cu mm <=5 H code = 1691) LINING CELLS (BEAKER) (test code 57 /cu mm <=1 H = 1590) NEUTROPHILS FLUID (BEAKER) (test 6 % code = 1656) LYMPHS FLUID (BEAKER) (test code 52 % = 488) MONO/MACROPHAGE FLUID (BEAKER) 42 % (test code = 489) EOSINOPHILS FLUID (BEAKER) (test 0 % code = 491) BASO FLUID (BEAKER) (test code = 0 % 492) CONTAINER BODY FLUID (BEAKER) EDTA Tube (test code = 2873) [id number] 12:48:00 Test Item Value Reference Range Interpretation Comments Protime (test code = 15.2 11.9- 14.2 H 5902-2) seconds INR (test code = 1.23 <=5.90 6301-6) PTT (test code = 35.1 22.5- 36.0 85406-1) seconds JEFF (test code = JEFF) Effective 08/04/2018: PT Reference Range ChangeNew: 11.9-14.2 Previous: 11.7-14.7 RECOMMENDED COUMADIN/WARFARIN INR THERAPY RANGESSTANDARD DOSE: 2.0-3.0 Includes: PROPHYLAXIS for venous thrombosis, systemic embolization; TREATMENT for venous thrombosis and/or pulmonary embolus.HIGH RISK: Target INR is 2.5-3.5 for patients wiht mechanical heart valves. Lab Interpretation Abnormal (test code = 60886-8) [id number] 12:48:00 Test Item Value Reference Range Interpretation Comments PROTIME (BEAKER) (test code = 15.2 seconds 11.9-14.2 H 759) INR (BEAKER) (test code = 370) 1.23 <=5.90 PARTIAL THROMBOPLASTIN TIME 35.1 seconds 22.5-36.0 (BEAKER) (test code = 760) Effective 08/04/2018: PT Reference Range ChangeNew: 11.9-14.2 Previous: 11.7- 14.7RECOMMENDED COUMADIN/WARFARIN INR THERAPY RANGESSTANDARD DOSE: 2.0-3.0 Includes: PROPHYLAXIS for venous thrombosis, systemic embolization; TREATMENT for venous thrombosis and/or pulmonary embolus.HIGH RISK: Target INR is2.5-3.5 for patients wiht mechanical heart valves.CBC W/PLT COUNT & AUTO [id number] 12:34:00 Test Item Value Reference Range Interpretation Comments WHITE BLOOD CELL COUNT (BEAKER) 3.4 K/ L 3.5-10.5 L (test code = 775) RED BLOOD CELL COUNT (BEAKER) 3.78 M/ L 3.93-5.22 L (test code = 761) HEMOGLOBIN (BEAKER) (test code = 9.0 GM/DL 11.2-15.7 L 410) HEMATOCRIT (BEAKER) (test code = 30.5 % 34.1-44.9 L 411) MEAN CORPUSCULAR VOLUME (BEAKER) 80.7 fL 79.4-94.8 (test code = 753) MEAN CORPUSCULAR HEMOGLOBIN 23.8 pg 25.6-32.2 L (BEAKER) (test code = 751) MEAN CORPUSCULAR HEMOGLOBIN CONC 29.5 GM/DL 32.2-35.5 L (BEAKER) (test code = 752) RED CELL DISTRIBUTION WIDTH 16.4 % 11.7-14.4 H (BEAKER) (test code = 412) PLATELET COUNT (BEAKER) (test code 82 K/CU MM 150-450 L = 756) MEAN [...] (test code = 437) NEUTROPHILS ABSOLUTE COUNT 2.73 K/ L 1.56-6.13 (BEAKER) (test code = 670) LYMPHOCYTES ABSOLUTE COUNT 0.33 K/ L 1.18-3.74 L (BEAKER) (test code = 414) MONOCYTES ABSOLUTE COUNT (BEAKER) 0.31 K/ L 0.24-0.36 (test code = 415) EOSINOPHILS ABSOLUTE COUNT 0.02 K/ L 0.04-0.36 L (BEAKER) (test code = 416) BASOPHILS ABSOLUTE COUNT (BEAKER) 0.01 K/ L 0.01-0.08 (test code = 417) IMMATURE GRANULOCYTES-RELATIVE 0 % 0-1 PERCENT (BEAKER) (test code = 2801) MR, ABDOMEN, [id number] 19:21:00Referring: Dr. Najma Robledo Abdominal VesselsFINAL REPORT MR, ABDOMEN, WITH \\T\\ WITHOUT CONTRAST HISTORY: HCC,HCV,CIRRHOSIS COMPARISON: Abdominal MRI 05/27/2019 TECHNIQUE: MRI of the abdomen was performed with and without gadolinium. Multiplanar, multisequence images were obtained before and following intravenous injection of intravenous gadolinium contrast. FINDINGS: Hepatobiliary Findings:Contour and signal intensity: Diffusely nodular and heterogeneous. Focal treated observations:- Right lobe of the liver, encompasses many of the previously mentioned lesions in segments 8, 7, and some of the lesions in segments 4 and 5, with heterogeneous enhancement related to posttreatment changes. Some peripheral nodular enhancement in segments 7 and 8, (e.g. arterial phase axial images 33 and 45), in the regions of previously seen likely perfusional changes LR-TR equivocal.- Segment 8, 1.2 cm minimal enhancement (arterial phaseimage 27), LR-TR equivocal- Segment 5, no enhancement (arterial phase image 63) LR-TR nonviable- Segment 3, with persistent nodular enhancement measuring 14 mm (arterial phase image 43), LR-TR viable- Segment 4a 1.0 cm lesion (delayed phase axial image 31), at the edge of the treatment zone on the right, no residual arterial enhancement but some persistent washout, LR-TR equivocal- Several previouslynoted LR-3 lesions with only arterial phase hyperenhancement, subcentimeter, in segments 4b and 5, likely within the treatment zone if the whole right lobe was treated (arterial phase image 55, 59 and 80) are similar to prior, LR-TR viable versus persistent LR-3 Focal observations satisfying imaging criteria for HCC (LI-RADS 5):.- 20 mm segment 4b lesion (arterial phase axial image 71) with arterial enhancement, venous hypoenhancement, with complete or near complete capsule , LI-RADS 5, unchanged from prior. Focal observations at least mildly suspicious for HCC (LI-RADS 4 or 3): - as above Other focal observations (LI-RADS 2 or 1):-Nonenhancing focus, unchanged in segment 5 adjacent to the gallbladder, likely a cyst Portal vein: Patent.Arterial anatomy: Conventional.Gallbladder and bile ducts: Gallstones with no gallbladder wall thickening or pericholecystic fluid. No biliary dilation.Spleen: Moderately enlarged. Varices: Recanalized paraumbilical vein and body wall collaterals.Ascites: Moderate ascites, new. 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 IMPRESSION:1. Cirrhosis with sequelae of portal hypertension including moderate splenomegaly, new moderate ascites, varices as above, and: - Unchanged 2 cm LI- RADS 5 lesion in segment 4b - Treated 1.5 cm lesion in segment 5, LR-TR nonviable - LR-TR viable disease in segment 3, unchanged from prior - Previously seen 1.0 cm segment 4a lesion and 1.2 cm segment 8 lesion are LR-TR equivocal - Many of the previously seen LR-3 lesions have some persistent arterial phase enhancement after radio embolization in the right hepatic lobe, continued attention on follow-up, LR-3 versus LR-TR equivocal depending on whetheror not they were in the treatment zone. 2. Previously seen pancreatic cystic foci are not seen today, likely partially obscured due to artifacts. No main pancreatic ductal dilation. Signed: Noé Neely Verified Date/Time: 10/07/2019 19:21:45 Reading Location: [address] Radiology Reading Room BONE AND/OR JOINT IMAGING, WHOLE [id number] 14:24:00Referring: Dr. Najma Underwood REPORT PROCEDURE: BONE SCAN, WHOLE BODY CPT CODE: 49588 INDICATION: Hepatocellular carcinoma, pretransplant evaluation for liver transplantation PROTOCOL: 21.3 mCi of Tc-99m MDP was injected intravenously. Whole body and selected spot images were obtained approximately 3 hours later. FINDINGS: Tracer activity is mildly increased within the calvarium, maxilla, and mandible. Moderate uptake is seen within multiple joints including the shoulders, visualized wrists, and knees. Mild uptake is seen within the hips, focally worse on right, and ankles. Tracer activity within the spine is mildly irregular. Diffuse radiotracer activity within the abdomen is suggestive of ascites. Physiologic activity within the right kidney and urinary bladder, left kidney is only partially visualized on this study. IMPRESSION: 1. No specific evidence of osteoblastic neoplastic disease.2. Degenerative changes seen within multiple joints.3. Findings consistent with ascites. Images for comparison/correlation were CT chest dated 10/07/2019, bone scan 02/11/2019. Signed: Afua Dove MDRthe hospital of central [place] Verified Date/Time: 10/07/2019 14:24:47 Reading Location: [address] Reading Room [place] bone scan whole [id number] 14:24:00Interface, External Ris In - 10/07/2019 2:26 PM CDTFINAL REPORT PROCEDURE: BONE SCAN, WHOLE BODY CPT CODE: 27993 INDICATION: Hepatocellular carcinoma, pretransplant evaluation for liver transplantation PROTOCOL: 21.3 mCi of Tc-99m MDP was injected intravenously. Whole body and selected spot images were obtained approximately 3 hours later. FINDINGS: Tracer activity is mildly increased within the calvarium, maxilla, and mandible. Moderate uptake is seen within multiple joints including the shoulders, visualized wrists, and knees. Mild uptake is seen within the hips, focally worse on right, and ankles. Tracer activity within the spine is mildly irregular. Diffuse radiotracer activity within the abdomen is suggestive of ascites. Physiologic activity within the right kidney and urinary bladder, left kidney is only partially visualized on this study. IMPRESSION: 1. No specific evidence of osteoblastic neoplastic disease.2. Degenerative changesseen within multiple joints.3. Findings consistent with ascites. Images for comparison/correlation were CT chest dated 10/07/2019, bone scan 02/11/2019. Signed: Afua Dove Verified Date/Time: 10/07/2019 14:24:47 Reading Location: [address] [facility] fet[facility] (AFP[facility] tumor [id number] 13:26:00 Test Item Value Reference Range Interpretation Comments Alpha-Fetoprotein (test 6.1 ng/mL <10.0 code = 1834-1) JEFF (test code = JEFF) [place] Worker ID - NTP Lab Interpretation (test Normal code = 45475-1) [facility]ET[facility]OTE[facility] (AFP), TUMOR [id number] 13:26:00 Test Item Value Reference Range Interpretation Comments ALPHA-FETOPROTEIN (BEAKER) (test 6.1 ng/mL <10.0 code = 1094) [place] Worker ID - NTPHepatic function [id number] 12:46:00 Test Item Value Reference Range Interpretation Comments Protein, Total (test code = 6.6 6.0- 8.3 gm/dL 2885-2) Albumin (test code = 3.4 g/dL 3.5-5 L 17511-7) Total Bilirubin (test code 1.3 mg/dL 0.2-1.2 H = 1974-2) Bilirubin, Direct (test 0.7 mg/dL 0.1-0.5 H code = 1968-7) Alkaline Phosphatase (test 169 U/L 40-150 H code = 6768-6) AST (test code = 1920-8) 32 U/L 5-34 ALT (test code = 1742-6) 25 U/L 6-55 JEFF (test code = JEFF) [place] Worker ID - NTP Lab Interpretation (test Abnormal code = 97330-5) [facility]HEPAT[facility] FUNCTION [id number] 12:46:00 Test Item Value Reference Range Interpretation Comments TOTAL PROTEIN (BEAKER) (test code = 6.6 gm/dL 6.0-8.3 770) ALBUMIN (BEAKER) (test code = 1145) 3.4 g/dL 3.5-5.0 L BILIRUBIN TOTAL (BEAKER) (test code 1.3 mg/dL 0.2-1.2 H = 377) BILIRUBIN DIRECT (BEAKER) (test 0.7 mg/dL 0.1-0.5 H code = 706) ALKALINE PHOSPHATASE (BEAKER) (test 169 U/L 40-150 H code = 346) AST (SGOT) (BEAKER) (test code = 32 U/L 5-34 353) ALT (SGPT) (BEAKER) (test code = 25 U/L 6-55 347) [place] Worker ID - NTPBASIC METABOLIC [id number] 12:46:00 Test Item Value Reference Range Interpretation Comments SODIUM (BEAKER) 135 meq/L 136-145 L (test code = 381) POTASSIUM (BEAKER) 4.0 meq/L 3.5-5.1 (test code = 379) CHLORIDE (BEAKER) 101 meq/L 98-107 (test code = 382) CO2 (BEAKER) (test 27 meq/L 22-29 code = 355) BLOOD UREA NITROGEN 14 mg/dL 7-21 (BEAKER) (test code = 354) CREATININE (BEAKER) 0.80 mg/dL 0.57-1.25 (test code = 358) GLUCOSE RANDOM 140 mg/dL 70-105 H (BEAKER) (test code = 652) CALCIUM (BEAKER) 8.7 mg/dL 8.4-10.2 (test code = 697) EGFR (BEAKER) (test 72 mL/min/1.73 ESTIMA LUCIAN GFR IS code = 1092) sq m NOT ACCURATE CREATININE CLEARANCE IN PREDICTING GLOMERULAR FILTRATION RATE . ESTIMATED GFR I S NOT APPLICABLE FOR DIALYSIS PATIEN TS. [place] Worker ID - NTPCBC W/PLT COUNT & AUTO [id number] 12:27:00 Test Item Value Reference Range Interpretation Comments WHITE BLOOD CELL COUNT (BEAKER) 3.5 K/ L 3.5-10.5 (test code = 775) RED BLOOD CELL COUNT (BEAKER) 3.83 M/ L 3.93-5.22 L (test code = 761) HEMOGLOBIN (BEAKER) (test code = 9.2 GM/DL 11.2-15.7 L 410) HEMATOCRIT (BEAKER) (test code = 30.7 % 34.1-44.9 L 411) MEAN CORPUSCULAR VOLUME (BEAKER) 80.2 fL 79.4-94.8 (test code = 753) MEAN CORPUSCULAR HEMOGLOBIN 24.0 pg 25.6-32.2 L (BEAKER) (test code = 751) MEAN CORPUSCULAR HEMOGLOBIN CONC 30.0 GM/DL 32.2-35.5 L (BEAKER) (test code = 752) RED CELL DISTRIBUTION WIDTH 16.2 % 11.7-14.4 H (BEAKER) (test code = 412) PLATELET COUNT (BEAKER) (test code 73 K/CU MM 150-450 L = 756) MEAN PLATELET VOLUME (BEAKER) 9.2 fL 9.4-12.3 L (test code = 754) NUCLEATED RED BLOOD CELLS (BEAKER) 0 /100 WBC 0-0 (test code = 413) NEUTROPHILS RELATIVE PERCENT 84 % (BEAKER) (test code = 429) LYMPHOCYTES RELATIVE PERCENT 7 % (BEAKER) (test code = 430) MONOCYTES RELATIVE PERCENT 8 % (BEAKER) (test code = 431) EOSINOPHILS RELATIVE PERCENT 1 % (BEAKER) (test code = 432) BASOPHILS RELATIVE PERCENT 0 % (BEAKER) (test code = 437) NEUTROPHILS ABSOLUTE COUNT 2.99 K/ L 1.56-6.13 (BEAKER) (test code = 670) LYMPHOCYTES ABSOLUTE COUNT 0.23 K/ L 1.18-3.74 L (BEAKER) (test code = 414) MONOCYTES ABSOLUTE COUNT (BEAKER) 0.28 K/ L 0.24-0.36 (test code = 415) EOSINOPHILS ABSOLUTE COUNT 0.02 K/ L 0.04-0.36 L (BEAKER) (test code = 416) BASOPHILS ABSOLUTE COUNT (BEAKER) 0.01 K/ L 0.01-0.08 (test code = 417) IMMATURE GRANULOCYTES-RELATIVE 0 % 0-1 PERCENT (BEAKER) (test code = 2801) CT, CHEST, WITHOUT [id number] 11:39:00Referring: Dr. Najma BroderickFINAL REPORT CT of the Chest dated 10/07/2019 CLINICAL INFORMATION: HCC,HCV,CIRRHOSIS Comment: Axial images of the chest were obtained from thoracic inlet to the upper abdomen without intravenous contrast. This exam was performed according to our departmental dose-optimization program, which includes automated exposure control, adjustment of the mA and/or kV according to patient size and/or use of interactive reconstruction technique. Heart is normal in size. Great vessels are unremarkable. No adenopathy in the mediastinum or perihilar region. Trachea and mainstem bronchi are patent. Subsegmental atelectasis is seen in the lingula and right mid lobe. The rest of the lungsare clear. No nodular, mass lesion or airspace disease is noted. No interstitial disease or bronchiectasis is present. No pleural effusion or pleural based mass is seen. Visualized upper abdomen demonstrates cirrhotic liver with a small ascites. Impression: No metastatic disease in the chest. Signed: Su Kern Verified Date/Time: 10/07/2019 11:39:52 Reading Location: [facility] C013Y CT Body Reading Room TUMOR LOCALIZATION, [id number] 16:06:00 Referring: Dr. Najma Broderick Reason for Exam:->HCC,CIRRHOSISFINAL REPORT PROCEDURE: TRACER DISTRIBUTION STUDY - SPECT (Bremsstrahlung) CPT CODE: 32204 CLINICAL INDICATION: Hepatocellular carcinoma PROTOCOL: 35.5 mCi of Y-90 microspheres (SIR- Spheres) had been previously administered. SPECT imaging of the liver and upper abdomen using Bremsstrahlung radiation was performed approximately 45 minutes later without additional injection of radiopharmaceutical. FINDINGS: Tracer distribution in the visualized portion of the liver is irregular. No significant activity is noted outside of the liver. IMPRESSION: Appropriate tracer distribution following right hepatic artery injection. Signed: Gerry Harrison Verified Date/Time: 08/12/2019 16:06:26 Reading Location: [address] Nuc Med Reading Room NM tumor localization [id number] 16:06:00Interface, External Ris In - 08/12/2019 4:08 PM CDTFINAL REPORT PROCEDURE: TRACER DISTRIBUTION STUDY - SPECT (Bremsstrahlung) CPT CODE: 41552 CLINICAL INDICATION: Hepatocellular carcinoma PROTOCOL: 35.5 mCi [...] following right hepatic artery injection. Signed: Gerry Harrison Verified Date/Time: 08/12/2019 16:06:26 Reading Location: [address] Nuc Med Reading Room [facility], INTRA-ARTERIAL PARTIC [id number] 16:19:00Referring: Dr. Najma Broderick Reason for Exam:->HCC,CIRRHOSISFINAL REPORT PROCEDURE: Y-90 microsphere therapy (SIR-Spheres) CPT CODE: 50528 CLINICAL INDICATION: Hepatocellular carcinoma PROTOCOL:35.5 mCi of a planned 37 mCi dosage of Y-90 labeled microspheres (SIR-Spheres) was administered by the nuclear medicine physician to the right lobe of the liver via a hepatic artery catheter placed by the interventional radiologist. IMPRESSION: Y-90 microsphere therapy Signed: Gerry Harrison Verified Date/Time: 08/11/2019 16:19:17 Reading Location: [address] Nuc Med Reading Room [place] Y90 MICROPSHERES THERAPY 2019-08-11 16:19:00Interface, External Ris In - 08/11/2019 4:21 PM CDTFINAL REPORT PROCEDURE: Y-90 microsphere therapy (SIR-Spheres) CPT CODE: 86470 CLINICAL INDICATION: Hepatocellular carcinoma PROTOCOL: 35.5 mCi of a planned 37 mCi dosage of Y-90 labeled microspheres (SIR-Spheres) was administered by the nuclear medicine physician to the right lobe of the liver via a hepatic artery catheter placed by the interventional radiologist. IMPRESSION: Y-90 microsphere therapy Signed: Gerry Harrison Verified Date/Time: 08/11/2019 16:19:17 Reading Location: [facility] [address] Nuc Med [facility] [place] TUMOR LOCALIZATION, MULTI [id number] 16:15:00Referring: Dr. Najma Broderick Reason for Exam:->HCC,CIRRHOSISFINAL REPORT PROCEDURE: TRACER DISTRIBUTION STUDY, WHOLE BODY with SPECT CPT CODE: 93909, 80388 CLINICAL INDICATION: Hepatocellular carcinoma PROTOCOL: 2.7 mCi of Tc-99mMAA was injected by the nuclear medicine physician [...] an acceptable range for therapy. Signed: Gerry Harrison Verified Date/Time: 08/11/2019 16:15:18 Reading Location: [facility] [address]rd Fl[address]327B Nuc Med Reading Room NM tumor localization [id number] 16:15:00Interface, External Ris In - 08/11/2019 4:17 PM CDTFINAL REPORT PROCEDURE: TRACER DISTRIBUTION STUDY, WHOLE BODY with SPECT CPT CODE: 55552, 15569 CLINICAL INDICATION: Hepatocellular carcinoma PROTOCOL: 2.7 mCi of Tc-99m MAA was injected by the nuclear medicine physician via an arterial catheter placed by the interventional radiologist in the right hepatic artery. Subsequently, 2.7 mCi of Tc-90 9M MAA was also injected by the nuclear medicine physician via a hepaticcatheter placed by the interventional radiologist in the left hepatic artery. Planar spot images of the chest and upper abdomen, as well as tomographic images of the liver and upper abdomen with limited CT correlation were obtained. Hepatopulmonary shunting was calculated by the geometric mean method. FINDINGS: There is very irregular tracer distribution within the liver, with greatest uptake in theleft lobe. There is mild tracer uptake in [...] an acceptable range for therapy. Signed: Gerry Harrison MDReport Verified Date/Time: 08/11/2019 16:15:18 Reading Location: [place] [id number] [place], EMBOLIZATION, EXTENSIVE - [id number] 15:38:00Referring: Dr. Najma Dominguez TACEReason for Exam:->HCC,CIRRHOSISFINAL REPORT Procedure: Transarterial radio-embolization of the liver. History: [...] combined dictation for the mapping and treatment. Police Captain Senior: Randy Radford M.D. Metal Products Viewer: Alex Ospina Modality: Sonography and fluoroscopy. DOSE REDUCTION: The examination was performed according to departmental dose- optimization program. Fluoro time: 7.9 minutes Radiation dose: [...] gowns and gloves. The patient was laid supineon the procedure table. Bilateral groins were prepped with chlorhexidine gluconate and draped in themaximal sterile fashion. The right common femoral artery was localized using anatomic and ultrasonographic landmarks. The artery is patent. Pertinent ultrasound images were stored for documentation inthe PACS. Using aseptic precautions, real-time ultrasonographic guidance, after local anesthesia anddermatotomy, the common femoral artery was accessed with a micropuncture device. Eventually a 035 wire was placed using standard exchanges and advanced to proximal abdominal aorta under fluoroscopic guidance. Over the wire a 5 Nepalese vascular sheath was placed. The sheath was connected to a heparinized saline drip. Over the wire, a 5 Nepalese reverse curve catheter was placed. This was followed by selective catheterization of the following arteries: Celiac artery. This was followed by superselective catheterization of the following arteries: Left hepatic artery and right hepatic artery. The equip ment used for superselective catheterization was SOS-omni selective 2 catheter, a Bentson wire. The equipment used for superselective catheterization was Progreat catheter, Fathom wire. At each catheterization and superselective catheterization, following test injection, a digital angiography run was p erformed. The anatomy has been described previously. On the left hepatic artery branch point location, technetium 99 MAA was injected by Dr. Harrison of nuclear medicine. The catheter was then advanced into the right hepatic artery branch point. Technetium 99 MAA was injected by Dr. Harrison of nuclear medicine at this position also. The activity of technetium 99 MAA injected at each point is described in the nuclear medicine report. At this point, the catheter was withdrawn. The sheath was secured in position with silk suture and an aseptic dressing applied. The patient was taken to nuclear medicine forliver lung scan. The liver lung scan was favorable. The details are described separately in the nuclear medicine report. The patient was then brought back to angiography. A universal timeout was performed prior to starting the procedure. The procedure room personnel used personal protective equipment.The operators used sterile gowns and gloves. The [...] This was followed by superselective catheterization of theright hepatic artery branch point with a coaxial Pro great catheter and fathom wire. The position ofthe microcatheter was confirmed with hand injection run. This was followed by assembly of the administration set and the administration of radio embolization agent in collaboration with the nuclear medicine physician. The details of administration are reported in the nuclear medicine report. The agentused was Y 90 resin microspheres At the [...] the liver. The plan is to use glas s spheres. We will order 2 separate doses in the same session. One does will be administered throughthe middle hepatic artery. The other dose will be administered through the left hepatic artery. Thank you for the opportunity to assist in the care of your patient. Signed: Randy Radford MDReport Verified Date/Time: 08/11/2019 15:38:16 Reading Location: [place] [id number] Angio Body Reading Room ANG, VISCERAL [id number] 15:38:00Referring: Dr. Najma Parrish for Exam:->HCC,CIRRHOSISFINAL REPORT Procedure: Transarterial radio-embolization of the liver. History: [...] combined dictation for the mapping and treatment. Police Captain Senior: Randy Radford M.D. Metal Products Viewer: Alex Ospina Modality: Sonography and fluoroscopy. DOSE [...] the procedure. The procedure room personnel used per fadia protective equipment. The operators used sterile gowns and gloves. The patient was laid supineon the procedure table. Bilateral groins were prepped with chlorhexidine gluconate and draped in themaximal sterile fashion. The right common femoral artery was localized using anatomic and ultrasonographic landmarks. The artery is patent. Pertinent ultrasound images were stored for documentation inthe PACS. Using aseptic precautions, real-time ultrasonographic guidance, after local anesthesia anddermatotomy, the common femoral artery was accessed with a micropuncture device. Eventually a 035 wire was placed using standard exchanges and advanced to proximal abdominal aorta under fluoroscopic guidance. Over the wire a 5 Nepalese vascular sheath was placed. The sheath was connected to a heparinized saline drip. Over the wire, a 5 Nepalese reverse curve catheter was placed. This was [...] technetium 99 MAA was injected by Dr. Harrison of nuclear medicine. The catheter was then advanced into the right hepatic artery branch point. Technetium 99 MAA was injected by Dr. Harrison of nuclear medicine at this position also. The activity of technetium 99 MAA injected at each point is described in the nuclear medicine report. At this point, the catheter was withdrawn. The sheath was secured in position with silk suture and an aseptic dressing applied. The patient was taken to nuclear medicine forliver lung scan. The liver lung scan was favorable. The details are described separately in the nuclear medicine report. The patient was then brought back to angiography. A universal timeout was performed prior to starting the procedure. The procedure room personnel used personal protective equipment.The operators used sterile gowns and gloves. The [...] This was followed by superselective catheterization of theright hepatic artery branch point with a coaxial Pro great catheter and fathom wire. The position ofthe microcatheter was confirmed with hand injection run. This was followed by assembly of the administration set and the administration of radio embolization agent in collaboration with the nuclear medicine physician. The details of administration are reported in the nuclear medicine report. The agentused was Y 90 resin microspheres At the end of the procedure the radiation contaminated equipment was discarded using the standard institutional protocol. The access site was closed using Angio-Seal. Th e patient was then transferred to the post [...] same session. One does will be administered throughthe middle hepatic artery. The other dose will be administered through the left hepatic artery. Thank you for the opportunity to assist in the care of your patient. Signed: Randy Radford MDReport Verified Date/Time: 08/11/2019 15:38:16 Reading Location: [place] [address] Angio Body Reading Room IR Visceral [id number] 15:38:00Interface, External Ris In - 08/11/2019 3:40 PM CDTFINAL REPORT Procedure: Transarterial radio-embolization of the liver. History: A 63-year-old female with hepatitis C, liver cirrhosis, multifocal hepatocellular carcinoma involving segments 5, 8, 4A, 4B and 3 on the recent MRI. Prior chemoembolization on 08/30/2018 and 2019 with follow-up MRI on 05/27/2019 showed poor response to chemoembolization. The patient underwent mapping for Y 90 on July 12, 2019. Due to catheter migration during technetium injection, there was activity of the lesser curvature of the stomach. The patient returned today for re-mapping and treatment of the right lobe in 1 session. This is a combined dictation for the mapping and treatment. Police Captain Senior: Randy Radford M.D. Metal Products Viewer: Alex Ospina Modality: Sonography and fluoroscopy. DOSE [...] Ancef 2 g IV. Contrast medium: Isovue 300,85 cc. Estimated blood loss: < 5 cc. Technique: A discussion of the risks, benefits, and alternatives was carried out with the patient. A written informed consent was obtained. The patientexpressed understanding and agreed to proceed. A universal timeout was performed prior to startingthe procedure. The procedure room personnel used personal [...] fluoroscopic guidance. Over the wire a 5 Nepalese vascular sheath was placed. The sheath was connected to a heparinized saline drip. Over the wire, a 5 Nepalese reverse curve catheter was placed. This was followed by selective catheterization of the following arteries: Celiac artery. This was followed by superselective catheterization of the following arteries: Left hepatic artery and right hepatic artery. The equipment used for superselective catheterization wasSOS-omni selective 2 catheter, a Bentson wire. The equipment used for superselective catheterizationwas Progreat catheter, Fathom wire. At each catheterization and superselective catheterization, following test injection, a digital angiography run was performed. The anatomy has been described previous ly. On the left hepatic artery branch point location, technetium [facility] The catheter was then advanced into the right hepatic artery branch point. Technetium 99 MAA was injected by Dr. Harrison of nuclear medicine at this position also. [...] nuclear medicine report. The patient was then broughtback to angiography. A universal timeout was performed prior to starting the procedure. The procedure room personnel used personal protective equipment. The operators used sterile gowns and gloves. Thepatient was laid supine on the procedure table. [...] right hepatic artery branch point with a coaxialPro great catheter and fathom wire. The position [...] We will order 2 separate doses in thesame session. One does will be administered through the middle hepatic artery. The other dose will be administered through the left hepatic artery. Thank you for the opportunity to assist in the care of your patient. Signed: Randy Radford MDReport Verified Date/Time: 08/11/2019 15:38:16 Reading Location: [facility] P048 Angio Body Reading [facility] [id number] 15:38:00 Interface, External Ris In - 08/11/2019 3:40 PM CDTFINAL REPORT Procedure: Transarterial radio-embolization of the liver. History: [...] combined dictation for the mapping and treatment. Police Captain Senior: Randy Radford M.D. Metal Products Viewer: lAex Ospina Modality: Sonography and fluoroscopy. DOSE REDUCTION: [...] Ancef 2 g IV. Contrast medium: Isovue 300,85 cc. Estimated blood loss: < 5 cc. Technique: A discussion of the risks, benefits, and alternatives was carried out with the patient. A written informed consent was obtained. The patientexpressed understanding and agreed to proceed. A universal timeout was performed prior to startingthe procedure. The procedure room personnel used personal [...] fluoroscopic guidance. Over the wire a 5 Nepalese vascular sheath was placed. The sheath was connected to a heparinized saline drip. Over the wire, a 5 Nepalese reverse curve catheter was placed. This was followed by selective catheterization of the following arterie s: Celiac artery. This was followed by superselective catheterization of the following arteries: Left hepatic artery and right hepatic artery. The equipment used for superselective catheterization wasSOS-omni selective 2 catheter, a Bentson wire. The equipment used for superselective catheterizationwas Progreat catheter, Fathom wire. At each catheterization and superselective catheterization, following test injection, a digital angiography run was performed. The anatomy has been described previously. On the left hepatic artery branch point location, technetium 99 MAA [facility]. The catheter was then advanced into the right hepatic artery branch point. Technetium 99 MAA was injected by Dr. Harrison of nuclear medicine at this position also. [...] nuclear medicine report. The patient was then broughtback to angiography. A universal timeout was performed prior to starting the procedure. The procedure room personnel used personal protective equipment. The operators used sterile gowns and gloves. Thepatient was laid supine on the procedure table. [...] right hepatic artery branch point with a coaxialPro great catheter and fathom wire. The position [...] We will order 2 separate doses in thesame session. One does will be administered through the middle hepatic artery. The other dose will be administered through the left hepatic artery. Thank you for the opportunity to assist in the care of your patient. Signed: Randy Radford MDReport Verified Date/Time: 08/11/2019 15:38:16 Reading Locat ion: [facility] B1 P048 Angio Body Reading Room [facility] [place] PROTHROMBIN TIME/[id number] 08:18:00 Test Item Value Reference Range Interpretation [...] INR is2.5-3.5 for patients wiht mechanical heart valves.[id number] 08:18:00 Test Item Value Reference Range Interpretation Comments PARTIAL THROMBOPLASTIN TIME 33.0 seconds 22.5-36.0 (BEAKER) (test code = 760) CBC W/PLT COUNT & AUTO [id number] 08:06:00 Test Item Value Reference Range Interpretation [...] 0-1 PERCENT (BEAKER) (test code = 2801) Bilirubin, [id number] 08:05:00 Test Item Value Reference Range Interpretation Comments Bilirubin, Direct (test 0.3 mg/dL 0.1-0.5 code = 1968-7) JEFF (test code = JEFF) [place] Worker ID - AAHAMID Lab Interpretation (test Normal code = 94312-0) [facility] [id number] 08:05:00 Test Item Value Reference Range Interpretation [...] S NOT APPLICABLE FOR DIALYSIS PATIEN TS. [place] Worker ID - AAHAMIDBILIRUBIN, [id number] 08:05:00 Test Item Value Reference Range Interpretation Comments BILIRUBIN DIRECT (BEAKER) (test 0.3 mg/dL 0.1-0.5 code = 706) [place] Worker ID - AAHAMIDANG, VISCERAL [id number] 09:26:00Referring: Dr. Najma Parrish for Exam:->HCC,HCV,CIRRHOSISFINAL REPORT [...] chemoembolization. Y 90 therapy is being considered. Police Captain Senior: Randy Radford M.D. Metal Products Viewer: Alex Boss Modality: Sonography and fluoroscopy DOSE [...] local infiltration Medicines: Not applicable Contrast medium: Vtlwgb121, 115 cc. Estimated blood loss: < 5 cc. Technique: A discussion of the risks, benefits, and alternatives was carried out with the patient. A written informed consent was obtained. The ginny mcmullen expressed understanding and agreed to proceed. A [...] fluoroscopic guidance. Over the wire a 5 Nepalese vascular sheath was placed. The sheath was connected to a heparinized saline drip. Over the wire, a 5 Nepalese reverse curve catheter was placed. This was [...] 5 mCi of technetium MAA by Dr. Harrison. At the end of the procedure the geographic equipment was withdrawn. The access site was closed using Angio-Seal. The patient was then transferred to the nuclear medicine for imaging. 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 No [...] lobar. Please note that after injection of ygmrwplonc32 MAA the microcatheter was noted to have [...] This whole plan was discussed with Dr. Harrison. The patient was discharged home in stable condition. Thank you for the opportunity to assist in the care of your patient. Signed: Randy Radford MDReport Verified Date/Time: 07/25/2019 09:26:06 Reading Location: [place] [address] Angio Body Reading Room Electronicallysigned by: RANDY RADFORD MD on 07/25/2019 09:26 AMTUMOR LOCALIZATION, [id number] 15:28:00Referring: Dr. Najma Broderick Reason for Exam:->HCC,HCV,CIRRHOSISFINAL REPORT PROCEDURE: TRACER DISTRIBUTION STUDY, WHOLE BODY with SPECT CPT CODE: 98306, 33719 CLINICAL INDICATION: Hepatocellular carcinoma PROTOCOL: A total [...] an acceptable range for therapy. Signed: Gerry Harrison MDReport Verified Date/Time: 07/15/2019 15:28:14 Reading Location: [address] [address] Reading Room COMPREHENSIVE METABOLIC [id number] 10:25:00 Test Item Value Reference Range Interpretation [...] S NOT APPLICABLE FOR DIALYSIS PATIEN TS. [place] Worker ID - NTPBILIRUBIN, [id number] 10:25:00 Test Item Value Reference Range Interpretation Comments BILIRUBIN DIRECT (BEAKER) (test 0.3 mg/dL 0.1-0.5 code = 706) [place] Worker ID - NTPCBC W/PLT COUNT & AUTO [id number] 10:12:00 Test Item Value Reference Range Interpretation [...] 0-1 PERCENT (BEAKER) (test code = 2801) [id number] 10:05:00 Test Item Value Reference Range Interpretation Comments PARTIAL THROMBOPLASTIN TIME 33.9 seconds 22.5-36.0 (BEAKER) (test code = 760) PROTHROMBIN TIME/[id number] 09:59:00 Test Item Value Reference Range Interpretation [...] for patients wiht mechanical heart valves.MR, ABDOMEN, [id number] 13:08:00 Referring: Dr. Najma Robledo Abdominal VesselsFINAL [...] VIII on axial arterial phase image 35 rodrigo ures 1.2 cm with washout, unchanged. No pseudocapsule [...] to suggest malignant transformation. Signed: Jose D Pichardo MDReport Verified Date/Time: 05/27/2019 13:08:16 Reading Location: [facility] Imaging Reading Room - [place] [address] 1129 ALPHA FETOPROTEIN (AFP), TUMOR MARKER 2019-05-27 12:15:00 Test Item Value Reference Range Interpretation Comments ALPHA-FETOPROTEIN (BEAKER) (test 16.8 ng/mL <10.0 H code = 1094) [place] Worker ID - NTPCT, CHEST, WITHOUT [id number] 11:55:00Referring: Dr. Najma Underwood REPORT CT OF [...] [place] Verified Date/Time: 05/27/2019 11:55:12 Reading Location: [address] Radiology Reading Room HEPATIC FUNCTION [id number] 11:53:00 Test Item Value Reference Range Interpretation [...] (test code = 17 U/L 6-55 347) [place] Worker ID - NTPBASIC METABOLIC [id number] 11:53:00 Test Item Value Reference Range Interpretation [...] S NOT APPLICABLE FOR DIALYSIS PATIEN TS. [place] Worker ID - NTPPROTHROMBIN TIME/[id number] 11:38:00 Test Item Value Reference Range Interpretation [...] mechanical heart valves.CBC W/PLT COUNT & AUTO [id number] 11:31:00 Test Item Value Reference Range Interpretation [...] 0-1 PERCENT (BEAKER) (test code = 2801) [id number] 10:08:00 Test Item Value Reference Range Interpretation Comments POC-Creatinine (test 0.8 mg/dL 0.6-1.3 : TESTE D AT [facility] 6720 code = 1859) [place], [address]: L[place] Worker/Techni gianluca ID = [id number] for Mee Roman POC-EGFR (test code 72 mL/min/1.73M2 = 1860) [facility] CenterPOCT-[id number] 10:08:00 Test Item Value Reference Range Interpretation Comments POC-CREATININE 0.8 mg/dL 0.6-1.3 : TESTED AT [facility] (BEAKER) (test [address] [place] [address] code = 1859) [place], [address]: L[place]house Worker/Techni gianluca ID = [id number] for eDx, Moriah ojeda POC-EGFR (BEAKER) 72 mL/min/1.73M2 (test code = 1860) CT, ABDOMEN, WITHOUT [id number] 19:39:00Referring: Dr. Najma field performed at [facility] in CT department.Anesthesia:- >NonePlease specify abdominal organs:->LiverFINAL [...] 3.Cholelithiasis without acute cholecystitis. Signed: Jose D Pichardo MDReport Verified Date/Time: 04/15/2019 19:39:35 Reading Location: [address] Body Reading Room Electronicallysigned by: JOSE D PICHARDO MD on 04/15/2019 07:39 PMCT abdomen without IV [id number] 19:39:00Interface, External Ris In - 04/15/2019 7:41 [...] 3.Cholelithiasis without acute cholecystitis. Signed: Jose D Pichardo Verified Date/Time: 04/15/2019 19:39:35 Reading Location: [facility] C013Y CT Body Reading Room [facility], EMBOLIZATION, EXTENSIVE - [id number] 16:59:00Referring: Dr. Najma Dominguez TACEReason for Exam:->HCC,hcv,cirrhosisFINAL REPORT Procedure: Transarterial chemoembolization of the liver. History: Liver cirrhosis, hepatitis C, hepatocellularcarcinoma, multifocal, status post treatment the right lobe of the liver on August 30, 2018. Follow-upMRI on 02/11/2019 was discussed in the tumor board and showed active disease in the segment three andfour of the liver. A TACE was recommended. Police Captain Senior: Randy Radford M.D. Metal Products Viewer: Alex Dickerson Modality: Sonography and fluoroscopy. DOSE REDUCTION: The examination was performed according to departmental dose- optimization program. Fluoro time: 23 minutes Radiation dose: 501.4 mGy Kerma- area. Number of images: 89 Sedation: Versed one [...] standard exchanges. Over the wire a 5 Nepalese vascular sheath was placed. The sheath was connected to a heparinized saline drip. Over the wire, a 5 Nepalese reverse curve catheter was placed. This was [...] your patient. Signed: Randy Radford Verified Date/Time: 04/15/2019 16:59:24 Reading Location: [place] [address] Angio Body Reading Room Insert peripheral [id number] 13:11:01Willis Dickerson 04/15/2019 1:17 PM Interventional Radiology Post Procedure Note PROCEDURE:TACE INDICATION/ PRE-OP DIAGNOSIS: HCC. POST-OP DIAGNOSIS: Same. IMPLANT: Doxorubicin infused 100mg Oncozene RADIOLOGIST: Dr. Radford NURSING EDUCATION SPECIALIST: Tuan EBL: < 5 cc. SPECIMEN: None CONSCIOUS SEDATION: 1 mg Versed, 50 microgram Fentanyl intravenously. 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 PRELIMINARY FINDINGS: Left hepatic lobe tumor blush s/p LHA injection of doxorubicin infused oncozenes. COMPLICATIONS: None. INSTRUCTIONS: Flat bedrest and restricted RLE movement for 3 hours, d/c home in 6 hours. *Preliminary Findings Only. Final Report to Follow Willis Dickerson M.D.Interventional Radiology Fellow, PGY- 1:11 [facility]PRE[facility] [id number] 09:22:00 Test Item Value Reference Range Interpretation [...] S NOT APPLICABLE FOR DIALYSIS PATIEN TS. [place]house Worker ID - AAMIR [id number] 09:06:00 Test Item Value Reference Range Interpretation Comments PARTIAL THROMBOPLASTIN TIME 31.1 seconds 22.5-36.0 (BEAKER) (test code = 760) PROTHROMBIN TIME/[id number] 09:04:00 Test Item Value Reference Range Interpretation [...] mechanical heart valves.CBC W/PLT COUNT & AUTO [id number] 08:54:00 Test Item Value Reference Range Interpretation [...] (test code = 2801) CT, CHEST, WITHOUT [id number] 15:05:00Referring: Dr. Najma BroderickFINMINA REPORT TECHNIQUE: CT of the chest WITHOUT [...] MDReport Verified Date/Time: 02/23/2019 15:05:09 Reading Location: [address] Radiology Reading Room MR, ABDOMEN, [id number] 15:59:00Referring: Dr. Najma Robledo Abdominal VesselsFINAL REPORT [...] enlargement are again noted.3. Cholelithiasis. Signed: Reynold Greene Verified Date/Time: 02/11/2019 15:59:27 Reading Location: [address] RadiologyReading Room BONE AND/OR JOINT IMAGING, WHOLE [id number] 14:35:00Referring: Dr. Njama Broderick FINAL REPORT PROCEDURE: BONE SCAN, WHOLE BODY CPT CODE: 15038 INDICATION: Hepatocellular carcinoma PROTOCOL: 21.4 mCi of [...] and CT chest on 11/05/2018. Signed: Afua Dunham rd Verified Date/Time: 02/11/2019 14:35:45 Reading Location: [address] Reading Room ALPHA FETOPROTEIN (AFP), TUMOR MARKER 2019-02-11 11:40:00 Test Item Value Reference Range Interpretation Comments ALPHA-FETOPROTEIN (BEAKER) (test 6.8 ng/mL <10.0 code = 1094) HEPATIC FUNCTION [id number] 11:01:00 Test Item Value Reference Range Interpretation [...] = 17 U/L 6-55 347) BASIC METABOLIC [id number] 11:01:00 Test Item Value Reference Range Interpretation [...] S NOT APPLICABLE FOR DIALYSIS PATIEN TS. [id number] 10:54:00 Test Item Value Reference Range Interpretation Comments POC-CREATININE 0.7 mg/dL 0.6-1.3 TESTED AT [facility] 6720 (BEAKER) (test [place] code = 1859) [address] POC-EGFR (BEAKER) 84 mL/min/1.73M2 (test code = 1860) CBC W/PLT COUNT & AUTO [id number] 10:47:00 Test Item Value Reference Range Interpretation [...] PERCENT (BEAKER) (test code = 2801) PROTHROMBIN TIME/[id number] 10:42:00 Test Item Value Reference Range Interpretation [...] is2.5-3.5 for patients wiht mechanical heart valves.Tissue [id number] 11:15:00 Test Item Value Reference Range Interpretation Comments Case Report (test code Surgical Pathology = 104) Report Case: [id number] Authorizing Provider: Joe Turpin Collected: 01/06/2019 Ruby Patel MD Ordering Location: [facility] Endoscopy Received: 01/07/2019 0815 Services Pathologist: Sheila Hamilton MD Specimen: Polyp, Colon - Rectosigmoid, TAKEN BY ESD, ON FOAM, EVALUATE MARGINS DIAGNOSIS (test code = m6giuZLySUFze5nsQKOrsA 3220) FuZzEwMzNcZnRuYmpcdWMx TNeihzQqRRbja5WqQ0ZgEk AwMFxhbnNpXGRlZmxhbmcx CKFhORE6arAhBPDmUXtgKA WjVNnbTj9lvEKuvFpuNzWu GNFca3rscnQExumcgXy1b2 zsQEMrHjZ8uHXiZDivB2dp xzGaaJIqDBMsQVy0iG99XI SjsO1bpBKuPUhjlsKbDMgv fxHzepXuPob3QEAsW9kjBS LuNMCtE6LzAW9kVJLiZxk9 KUL4OJH0bQegi0S5yUIxaS AeiUuiJmJjOaYsSLYNr8Tl HWp3tAoxM4FkHNZkSyW3oU QgUGFyYWdyYXBoIEZvbnQ7 lG73HGnvslD2ySUho1Pgq6 5bw125sG9rzBLpCNM7VNIp VBPbwFLuCMUkYMH0KTUepT TvW2w4NzJkqZZxQ2G5SzZt vKEwS3E7SgUryJBeY7B8Fo ZjqPRyEUAesEJvTt6nwMHi oZRcva8ojh31UTK9b1QoiV yfUMR3RBM5CkWbJq3maZDw CQYdNE9bIoWkiVNqPFPgve 67sXfjMDmpetNrmN3aRwEo PWKxgSMuFSWbXW3fmGHvXI MrrP5zyfipVOPfUqRnjocu YBMknQijgxLbNr0zyMasQK X7WHhaG1bexD1rCqI9DZvh Q2mkaQ1bNTu3VAtbzCF4WA VkvN0aZW9aiczxt0bkDxQh GE6bgxstu3lnMwWhRZ0fww w7q9qyWeYePT6nazgwy7qi NzIwXGhlYWRlcnkwXGZvb3 RdvskyPVFib3HcO3FrpIej X98ppLaeP92bVMJcbPudoL 7tnOboiY8rQrNeKbWdJUua bFxwbGFpblxmMFxmczIwXH HqKNtkGRHySJPzHoTgOU9d SoQYMU0DFKpZB9wYNCIHQD 9FFQYBH6wHXPamGL4YH0OB X8FJIvFVICUXFURJE7SBAN YPP1FID2DWA363JXUttlPe LSAgIFRVQlVMQVIgQURFTk 7ERXjcWq7nFJOMVOTgtwSx JLIoEE2FD0TPJVRRXITLSq MXTXvYRNtQJZXQRUSCJ0RD CCJOZM9uCUMDSJiJNG5HCF mhQWUuUE3yASJLSCDAWK8E FTQBVhFBYK1CXBBBGG6WSF WUT5FDRPDEGOJQSAzXDX8l bYMqGOXodbgpNNE9u1tfoQ YxXHNzdGUxODAwMFxhbnNp EWJuAusjmpacOFQvLVQ9vf CkQJQaKFwsSVYtHHboIz0y lJUgxQjePzEoCDCdm5ungj PDiqhdoVx1f3hiYCIjDxM3 dHSsUSeiJ2pxarBigMRyFZ WgMPx9yV20ZGYwsJ2hpOQu ZQlqhrApIcR1IXnkBTFuCi X3RTWdcVJtYASjY1boMHAk SEpqHTQoFCqfzPAsPBC0jQ nss1G7gCAfzDIntIonJeIb PqLcFyAFq9LfHWs8pQfqR6 IuVLJkIpL0jNEbAOEnUOsj AZAnVQTobcW8pV52GEhnco E4gJOrw3Cly18lt737gP1r lVWlIND2LDNlXRTezJQxWF FlHFI6IKYbzJJqM8akSEJl AD7zdlqsOWnlVFxiFOLjhX P0GYFabGIyV2NgYRKqAWdv MGZvmaf5HoXeNz8dtKWxuQ inETmob3nny4rriGBoLdq4 GRLxBzYcLhqoSCpns3Gbc0 zgVOWbev8dHCI6lBXefNye g2R6wOMlOCFddLIjATLxAO 0hbKWrMSWuoY8gudwhMLSr YnJkcmhlYWRccGdicmRyZm 1tfSokEEG8YWeuZ4treF5m WbE2SNqyP7jorJ4wRPa3OY auPJRpcLJ3tuG1CZEmtHVd Q1AouY3yCXDsUP3bgbg4o7 sdGFU2NAhrCCNvJrP2bcF7 NDBcaGVhZGVyeTcyMFxmb2 02OTW1ClXnHAHvp3LeH8Ho aTkzC16sgJklQ79rQJRecW uicN0xoWjzaE9dGyJjQkUy VOfdeHdcDP5qYCHvJ8rrzJ YvDWJwKUSeU3lcIwYmkU6c vXapFKztcnCwCRJcMmv7WD GddKFpBPSlMze3WWEgFBAf H00holnqGLY4jU8nm2mer0 RsJJqcVEB7XYVpr29wEGee hiU9AYttPe6jYaXhJYW2EL luTSM2eB== CPT Code(s) (test code k8fmaHVrGNJydHMrGtPtGB = 3357) NjAIAqi7vbNKRnaQPdWsTn MzNcZnRuYmpcdWMxXGRlZm Xoe7ldp024hLKee1axTHOg IsI0fYBfNQZrnGIxJ277a7 haz8ogtiXxvDW7DWKaUTG8 KUjrjoVqhpA0GIznqSXyHa X5FKkozgVhRWqosbUumsAs Aux9TECgY247JGF5mKslh8 orDBI3RIYlGPVuDkHqBv0z pMGvH284QQRpUAPRIEWlsY w8ZKLfbdAovyAvgGFYz836 B080e1bqUUCnaoJhmIxLec kmy3mbY149OUCskQEpgjIu UyXhZAVmuSWvyHJ5JRFsWS 4echwcCfYgNX9urunpNmKu BP5kyfc5UnWwKS7kqodaJn EtRClkTTKvpatqZWFbs8Ln oagaLX4eY0Snd4Q9aQ1ofP DdWUYfhAAcIpCtSXAuwq1s cQHzYLggp2IpGLS1hmI7mK PcpENwKXGdFO40Eehnl2Ro KffdRGT7DVCkoxEip9Ilx0 aiEoXvjcNeV0qiJ0ZlCOAr FWVoABBgPmKmgsHqp2Kvy6 GagYIxrHk5p7opNOPsTHDw hQuux2fmXKK7XNNkC7D3oZ Tec0bnVMqnJPCkoWE0bcix RJczVPTlmoX7ngodGPqxBM XpuOB4tbpnHTtwBWPlMsU8 mrvgSJmrYULtNHV7SGhcm7 93YFM1VPwzQsesZUvgBXQr bmNvbnRccGduZGVjXHBsYW luXHBsYWluXGYwXGZzMjRc bYuqsKorfR1yEhBwTtUlVP poYC6lBHSkD1hcfDYwSYAf OTAaG1dlCaUozF9qaAtqVM fbmlIkWDu0KzU4NVBzcc4= CLINICAL HISTORY (test h0tmmLZjTVAmaODnNrArGP code = 335) TqPBUya3ajSLOdhKIoXlDc MzNcZnRuYmpcdWMxXGRlZm Ntw4olb436tAEua9leASGh XoS7gMXtXNFtaSJbD317y5 udz2btkaNvsWA3RIDgNDK2 IDenlnVcgwI3NFoouIVaIh P2RYvybzDaGUcurfOvpkOf Pll0ULAhZ108FHY5xFinj1 ydUTI5COEjUFNjSgIhSf4a lKAzF992FHShHGYAQBGtyV c7BTFljuOhunFvnRWGi090 K198n4cxFJXjkgQitNtRis xut9pcB159NHJylGWzmbTf RlYlGBHjhWHhcOQ8JWSxNB 1ebihvBmOcJF6cmrpmUlPy AU3ekzc8ZdTxQV8oftbaBl RuJSghRPMjesuhDRMmj4Ak onjsHW7nO2Ngi9K9aN5sdZ WyHEAxsCTtNnZpBLAdoo5h sMEgBCfqh7SaQYG0uxF8dM GbpKDvETWeJU97Xvpfr8Gx TysaDUL4GYFmpbKpe8Pfn2 jjFgDexdOpV1jkU8RwSIVq PFJsLWBsOqVhgtDas1Vif1 DjxKMztPx4x7zbDZIkAPRx iTjpi0imIHY2OFQvE6C7dI Sms0wxJEhcSRTccLJ8pqiz MBkwBKTvraX2krftRGisSY KcyDJ1jbwbDSroAUEsSqZ0 jsjwHFtzQHOnPSB2YQicv8 70BYT7MLfaBkukMPvsUFQr bmNvbnRccGduZGVjXHBsYW luXHBsYWluXGYwXGZzMjRc cGnqmWsqhG7sQgMgQeHgZV tqQP1gCSXpW3nplEFdJJNv AZTiX3axLxAggK5tgIfnAM ueogFlCAYhWC1nsLJ5s0Xu TIEdsFkrNO1gEGWxO34lbS AtX18zz04iAMXmhx9= SPECIMEN SOURCE (test q7lvsZCpSYXtcYHtSsTgPR code = 3377) MbXBEau8zcUEXvrCSiFhGh MzNcZnRuYmpcdWMxXGRlZm Fct1qon447oJQll4ayDNSj PmT3jQBuCLBnvFKhK438n9 dsi6itggKmhSI7IPHlSOP6 KZpyheZnzmO8PTivjDKjBq T8NJivucKvCLrxifPuwcOs Aqr1FLXcH689SSO1rPkmx7 kzXKZ7TBMfLGGjHbVmOf9u sIHgI501JUYhCKDNZXJijH z6UGUbwgFueuZtsMMSj038 R913v4uvOBYwepLhuOlZhn baa4ndP052QTAryRUoxaAf GnAyEUIeqKMcyYP5VZKwIH 3jpnynNiRqGQ7pksxaZrRu QO5fhrg0KeBhSU4ckixdZw FiRLrsOPYncpieKZZxo4Dl jjyaJC9vT6Lhl3P2nN6uiK AhEUOquGBdQeLrVHLuag9u nZYbSQywa2BrJYQ5xjH5rG RknQFaSJDsIV14Zzalf5Td KgclGTD3RUUknwMrm5Vyd2 qlCpTfpdQkI0hdQ7FxLRSq TJCxMBKwKnWbgkGra3Kbp3 TbrNRxeNd0x1osTUNpMEUi vXrip2tjZOO6OCRgM6H7aF Tlh1gtGYfhHFOhmMY0ejri WMrhYLQpaqG1jdcbLDejSD NmxDU7etolPYqlWPYtMeY8 kjpwZFsnTHYcXHK1PHsaj3 92DLD6GCgbWuyuWXhiCWKg bmNvbnRccGduZGVjXHBsYW luXHBsYWluXGYwXGZzMjRc lEsfmQnrcX9bDhPoBmNjXS onUQ8pNRVvH0hacBCqXKMv VBFdY0agTsDqeE6gqWueAX qcryBaDDHdyZbkYHAdm4nc ng7dZWE2n5WqP98sdMElUD Deb4OhAFA0TXKDOYwdq19x Eq7mnOzzNBMqmGGswZMfwJ MyB1nxb7fmCCZ4 GROSS DESCRIPTION (test r5djoDRtWIHbfLZkTrUuXU code = 3366) HoXKUho6ydLZRypWAuBnAp MzNcZnRuYmpcdWMxXGRlZm Wsn7kre337dYAzn5fmUPJe WdD8nIRiLSLzdRPsI653k4 kic6boisQpxRO9RUZjJQT3 DLcvfuYnktD0SPfqpJDvXf R6GSvatfHePEbmcvXrlnTp Rze5JMAtY674JDV5uRaxt4 pwTEU7UYLqXEMnPgKkZh2a rEAiI818RXDwFEYKHSSvkL o7TJOegsCvlkZihSFCs299 B512d2qfTQFwguFzsNxOtb oll0gmJ567YMDybSLxqbGn XzAxXRPobMFrhSZ2NOOkHS 1bgiacYhKzRF0zyjgfKuBp TH0mvaz2FsVuDE8trzajAe YoGSydCNDvhzilQRQkd9Wc ylscGM5gJ1Cmm4Z1lE2tnX CkTIPkoLTlMwOyGJVvux9d kVDfCYrpm6GuBGT7psF7sU PhxUKuAABqWP57Ipgje5Fd CrgyNGE8BOWhppJve5Xeg3 mgWnUylnIpM2mgB6JmREUb TULfYJBrCzJlmyNca3Efl4 OiuSDssDd6h8cnMTDkXKHp yRpjy4zaSDO5VEAdA0Z3fU Lsp3awAPtzWXPxhSC2ixux KQzjZYJhwcA4kxwtCBdcIL NtiZZ5hapuFAmqLOPsCoW7 xvrlTSfzIXDdFVG6OMizr3 35PLF0VAiqQuonEOejSWEi bmNvbnRccGduZGVjXHBsYW luXHBsYWluXGYwXGZzMjRc tYcfnCwbpE4vWwZnUjTfND xoKD2gGOXuX1zzvKSrNDDl QVKeA7rzDeQwhT7wxMvvEY rmbeUvONXcA3JafkSwWYif EXBlcu5wnVmuYTjhNcDuPU Oya8c9vTT5vQRbtSM6xBBu kQtiWC1heBGkDFWgD9Bxg3 ynnlWhwV5yQSOsMG6uSZEu m2q7lKatH82gy41hzhJypS 4xoKokk4hoYaVfdaNeQVGd YOO8UJHrATY4CULtJOXblQ CkehEgG4JzUWAtpD4zyEka biBvZiByZWQtcGluayBtdW Kzv2FrcEzucbWaTOMxKDRh kUfyT8Nqg0Bgj7O1bu0if0 CtWtPXxOQik5YlIjUcOKIg PpB5vLJmxFUtz4WzSZKog9 EoBCxzQKZnEQhpdR3jZZOb fsBjFTEysH8dAM3asr2pez tyfqYqh6RhKJLBj5z4kAWd TRYivDAnfguaBj4lIMtdGN 93BSiqAC6vYHQkAeFBiKPz eT5ouXCofUCaGI2pCNJlKE Oxf28inAfqYGRvPEsygFVh GFZfqY1qVE0aVULgsXUhAG VsOPBjNNIwXZ7syfmxux9q VGhlIHNwZWNpbWVuIGlzIH AoqnqeuOr6REIsU5Uxe45c KVYeamVkMN67jWQymIjbv6 AzoQo0vRRiOVKdfQWdhtBy UGjwoNcqz61lXNRcp8GdVF AoC9Ess10zcN6cYPMdkDHl HJWrZST4HVhwiR6rLQRrJD HgMMEbf0s9xIRgfaHESs7A SHLmFCZhgbdqDDZmDV2lRI VlJIG1XGOzzFQtarGtpUYr SB3djzuwhsalBneiW4imVO WphFNgXIZefK2gRESuzeUM Lt9mubNsvXQwnC== MICROSCOPIC DESCRIPTION w3kqgCNiHLOlpFNkOoQxHF (test code = 3371) BmEZZhn2njBQDloPQnVhZc MzNcZnRuYmpcdWMxXGRlZm Ezr1mol273rNLtb4akZQFk OgF2tKRmIGUwpLSnR293CW KsLBnku4qyp9LoAHIvhHPs l6M8OEHGziikqLw0gLsvA1 7xx8T8YeapY6ygOGQbJSdq NHLaYPwinQLmJFO8HNGdSM V5VKzcqiZqzaJ8EFaxuFMt VwW3ZVm5j0pqqHjxXHQfAY L0w4kjRKpwpzKhHE4wzh8q dNa5v0wvorAkGYUwTWIozP TXNRBdW9DpeRteKa1wjAi0 uQcrDtwwSNP4Nyy8YD7mfd 68dvo0kSogNCZplzbdCkR0 IAljUZHbcwyqNIx7KEaoNK JnbDcyMFxtYXJncjcyMFxt YXJndDcyMFxtYXJnYjcyMF ssRPOxOES8ZTvwv548ZII6 LMdug7wuf4rggFBfRkc8QF EtKoVxYwmdUNmox0Bhp7bx BWTylc1hAAX0fLVioDdzz9 U4aRIfDQRqjANgsgFvOLYw in66uOZfiVHnnJQmwd2zmc AzzFLsnTOdYDA0jZCywfAb IDYjmDDxGUWtWM1jfDYjJT KqpO0bsqgiSMCqZbYckyob XWKsdGtcnrWbCq9boNrsLC J0RVwiR9rurN8vUmC7EExi V5ivjE6jRIx5MFfxqVL0GN FlpY4bVY0pvepvx9hmRxAe JV1alobug2imLvHnGB6ggm w3b9fjDdKhIM6gacvby6ng NzIwXGhlYWRlcnkwXGZvb3 BuforaPOXrd6AwM5XbrKnw Y21mjBesO94gCCSeoPxmbM 9hmUzitH0iOwFtZcBiHTmk bFxwbGFpblxmMFxmczIwXH BsYWluXGYxXGZzMjAgUGVy Ti9crIExKwahKNDjmVRunD == [id number] 11:15:00Surgical Pathology Report Case: [id number] Authorizing Provider: Joe Turpin Collected: 01/06/2019 Ruby Patel MD OrderingLocation: [facility] Endoscopy Received: 01/07/2019 0815 Services Pathologist: Sheila Hamilton MD Specimen: Polyp, Colon - Rectosigmoid, TAKEN BY ESD, ON FOAM, EVALUATE MARGINS A. 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 CM - NEGATIVE FOR HIGH-GRADE DYSPLASIA/ MALIGNANCY - MARGINS, FREE OF ADENOMATOUS EPITHELIUM Signing Pathologist Direct Phone Line: [phone] signed by Sheila Hamilton MD on 01/12/2019 at 11:15 [id number] polyp of sigmoid colon Polyp, colon-rectosigmoid, taken [...] in each cassette, in A1-A22, polyp in A2-A15 .Ink code: Blue-radial margin, black-deep margin.CG/ew Performed.POCT-GLUCOSE [id number] 11:46:00 Test Item Value Reference Range Interpretation Comments POC-GLUCOSE METER 129 mg/dL 70-110 H : TESTED A T [facility] 6720 (BEAKER) (test code = LUCITA Kidd [facility], 1538) [address]: [place] Worker/Techni gianluca ID = [id number] for SHEEBA BROWN ALPHA FETOPROTEIN (AFP), TUMOR [id number] 12:27:00 Test Item Value Reference Range Interpretation Comments ALPHA-FETOPROTEIN (BEAKER) (test 4.9 ng/mL <10.0 code = 1094) CT, CHEST, WITHOUT [id number] 12:02:00Referring: Dr. Najma Underwood REPORT TECHNIQUE: CT [...] metastatic diseasein the chest. Signed: Jose D Pichardo MDReport Verified Date/Time: 11/05/2018 12:02:36 Reading Location:[address] Radiology Reading Room , ABDOMEN, [id number] 11:38:00Referring: Dr. Najma Robledo Abdominal VesselsFINAL REPORT [...] neoplasm. 6.Cirrhosis with splenomegaly. Signed: Jose D Pichardo MDReport Verified Date/Time: 11/05/2018 11:38:54 Reading Location: [address] Radiology Reading Room -[id number] 10:06:00 Test Item Value Reference Range Interpretation Comments POC-CREATININE 0.7 mg/dL 0.6-1.3 TESTED AT [facility] 6720 (BEAKER) (test [place] code = 6229) [address] POC-EGFR (BEAKER) 84 mL/min/1.73M2 (test code = 1860) HEPATIC FUNCTION [id number] 10:00:00 Test Item Value Reference Range Interpretation [...] = 16 U/L 6-55 347) BASIC METABOLIC [id number] 10:00:00 Test Item Value Reference Range Interpretation [...] NOT APPLICABLE FOR DIALYSIS PATIEN TS. PROTHROMBIN TIME/[id number] 09:49:00 Test Item Value Reference Range Interpretation [...] mechanical heart valves.CBC W/PLT COUNT & AUTO [id number] 09:40:00 Test Item Value Reference Range Interpretation [...] code = 2801) ANG, EMBOLIZATION, EXTENSIVE - [id number] 17:43:00Referring: Dr. Najma Dominguez TACEReason for Exam:->HCC,HCV,CIRRHOSISFINAL [...] inch guide wire was advanced. A 5 Nepalese sheath was utilized. A 5 tajik Alfredo catheter was placed selectively into the celiac axis. A 3 Nepalese microcatheter was super selectively advanced coaxially into [...] which was not visualized. Signed: Maritza Santana MDReport Verified Date/Time: 08/30/2018 17:43:13 Reading Location: [place] [address] Angio Body Reading Room COMPREHENSIVE METABOLIC [id number] 11:13:00 Test Item Value Reference Range Interpretation [...] NOT APPLICABLE FOR DIALYSIS PATIEN TS. BILIRUBIN, [id number] 11:13:00 Test Item Value Reference Range Interpretation Comments BILIRUBIN DIRECT (BEAKER) (test 0.4 mg/dL 0.1-0.5 code = 706) [id number] 11:07:00 Test Item Value Reference Range Interpretation Comments PARTIAL THROMBOPLASTIN TIME 32.1 seconds 22.5-36.0 (BEAKER) (test code = 760) PROTHROMBIN TIME/[id number] 11:06:00 Test Item Value Reference Range Interpretation [...] mechanical heart valves.CBC W/PLT COUNT & AUTO [id number] 10:54:00 Test Item Value Reference Range Interpretation [...] (BEAKER) (test code = 2801) MR, ABDOMEN, [id number] 10:23:00Referring: Dr. Najma Robledo Abdominal VesselsFINAL REPORT [...] are suspicious for hepatocellular carcinoma. Signed: Rajesh Kelsey MDReport Verified Date/Time: 07/16/2018 10:23:16 Reading Location: [facility] C013X [facility] Consult Reading Room HEPATITIS A ANTIBODY, [id number] 08:32:00 Test Item Value Reference Range Interpretation Comments HEPATITIS A IGM ANTIBODY (BEAKER) Nonreactive Nonreactive (test code = 498) ALPHA FETOPROTEIN (AFP), TUMOR [id number] 08:27:00 Test Item Value Reference Range Interpretation Comments ALPHA-FETOPROTEIN (BEAKER) (test 14.2 ng/mL <10.0 H code = 1094) HEPATITIS A ANTIBODY, [id number] 08:27:00 Test Item Value Reference Range Interpretation Comments HEPATITIS A IGG ANTIBODY (BEAKER) Nonreactive Nonreactive (test code = 2797) HEPATIC FUNCTION [id number] 08:08:00 Test Item Value Reference Range Interpretation [...] = 18 U/L 6-55 347) BASIC METABOLIC [id number] 08:08:00 Test Item Value Reference Range Interpretation [...] NOT APPLICABLE FOR DIALYSIS PATIEN TS. PROTHROMBIN TIME/[id number] 08:02:00 Test Item Value Reference Range Interpretation [...] = 2801) BONE AND/OR JOINT IMAGING, WHOLE [id number] 15:39:00Referring: Dr. Najma Underwood REPORT PROCEDURE: BONE SCAN, WHOLE BODY CPT CODE: 21093 INDICATION: Hepatocellular carcinoma, preoperative evaluation for liver [...] radiograph and today's chest CT. Signed: Gerry [facility]miss[facility] Verified Date/Time: 06/02/2018 15:39:33 Reading Location: [address] Med Reading Room CT, CHEST, WITHOUT CONTRAST 2018-06-02 [...] evidence of thoracic metastatic disease. Signed: Rajesh Kelsey Verified Date/Time: 06/02/2018 11:25:36 Reading Location: [address] Radiology Reading Room RAD, BONE DENSITY [id number] 10:39:00Referring: Dr. Najma Broderick Reason for Exam:->HCC,HCV,CIRRHOSIS,PRE [...] vertebral column within normal limits. Signed: Rajesh Kelsey MDReport Verified Date/Time: 06/02/2018 10:39:30 Reading Location: [address] Radiology Reading Room RSC-4-KGBNLZEKJBY QUANTITATION & [id number] 09:08:00 Test Item Value Reference Range Interpretation Comments LPFNZ-8-AFLWOZVDACI (QUEST) (test code = 0658741) A-1 ANTITRYP PHENOTYP (QUEST) (test code = 3072463) ANTI-NUCLEAR ANTIBODY (SHARYN)2018-05-29 10:41:00 Test Item Value Reference Range Interpretation Comments ANTI-NUCLEAR ANTIBODY (SHARYN) (BEAKER) Negative Negative (test code = 418) Test performed by IFA method.Test performed by IFA method.HEPATITIS B PCR, [id number] 07:20:00 Test Item Value Reference Range Interpretation Comments HBV RESULT COMPONENT HBV DNA not detected HBV DNA not detected (BEAKER) (test code = 2701) This test uses a Real-Time Polymerase Chain Reaction (RT-PCR) methodology and was performed using KIKE AmpliPrep/KIKE TaqMan HBV Test, v2.0 ([employer]Reportable range for this assay is 20 - 170,000,000 IU per mL (1.30 - 8.23 Log IU/mL).MISCELLANEOUS LAB [id number] 08:56:00 Test Item Value Reference Range Interpretation Comments SCAN RESULT (test code = 8113398) HEMOGLOBIN [id number] 10:40:00 Test Item Value Reference Range Interpretation Comments HEMOGLOBIN A1C (BEAKER) (test code = 9.6 % 4.3-6.1 H 368) [id number] 21:06:00 Test Item Value Reference Range Interpretation Comments T4 TOTAL (BEAKER) (test code = 12.8 ug/dL 4.9-11.7 H 895) [id number] 14:28:00 Test Item Value Reference Range Interpretation Comments RPR SCREEN (NATE) (test code = Nonreactive Nonreactive 420) MM, DIGITAL, MAMMO, SCREENING, BILATERAL INCLUDING [id number] 13:45:00 Referring: Dr. Najma Jasmineiagnostic workup per radiologist?->YesReason for Exam:->HCC,HCV,CIRRHOSIS,PRE TRANSPLANT EVALMRN#: [id number] - MM, DIGITAL, MAMMO, SCREENING, BILATERAL INCLUDING [...] 2 Benign G0202 RAD, MANDIBLE, MIN 4 [id number] 13:28:00Referring: Dr. Najma Parrish for Exam:->HCC,HCV,CIRRHOSIS,PRE TRANSPLANT EVALFINAL REPORT Mandible dated 05/26/2018 Comment: 4 views of the mandible were s ubmitted for interpretation. Body, angle, and coronoid process of the mandible are intact without fracture. TMJs were obtained bilaterally. No osteolytic lesion or periodontal abscess noted. Impression: Unremarkable mandibular examination. Signed: Su Kerneport Verified Date/Time: 05/26/2018 1 3:28:38 Reading Location: [address] Radiology Reading Room FERRITIN 2018-05-26 12:44:00 Test Item Value Reference Range Interpretation Comments FERRITIN (BEAKER) (test code = 361) 20 ng/mL 5-275 HEPATITIS B CORE ANTIBODY, [id number] 11:53:00 Test Item Value Reference Range Interpretation Comments HEPATITIS B CORE TOTAL ANTIBODY Reactive Nonreactive A (BEAKER) (test code = 497) HEPATITIS C [id number] 11:52:00 Test Item Value Reference Range Interpretation Comments HEPATITIS C ANTIBODY (BEAKER) (test Reactive Nonreactive A code = 367) URINALYSIS W/ [id number] 11:39:00 Test Item Value Reference Range Interpretation [...] SOURCE(BEAKER) (test code = 2795) CYTOMEGALOVIRUS ANTIBODY, [id number] 11:31:00 Test Item Value Reference Range Interpretation Comments CYTOMEGALOVIRUS, IGG (BEAKER) Positive Negative, Equivocal A (test code = 3429) CMV IgG Result Interpretation: </= 0.8 Al Negative 0.9-1.0 Al Equivocal >/=1.1 Al PositiveCYTOMEGALOVIRUS ANTIBODY, [id number] 11:31:00 Test Item Value Reference Range Interpretation Comments CYTOMEGALOVIRUS IGM ANTIBODY Negative Negative, Equivocal (BEAKER) (test code = 3437) CMV IgM Result Interpretation: </= 0.8 Al Negative 0.9-1.0 Al Equivocal >/= 1.1 Al PositiveEBV ANTIBODY, [id number] 11:31:00 Test Item Value Reference Range Interpretation Comments SIMON GIBBS VIRAL CAPSID Positive Negative, Equivocal A ANTIGEN IGG (BEAKER) (test code = 3415) Simon Gibbs Viral Capsid Antigen IgG Result Interpretation: </= 0.8 Al Negative 0.9-1.0 Al Equivocal >/= 1.1 Al PositiveEBV ANTIBODY, IGM 2018-05-26 11:31:00 Test Item Value Reference Range Interpretation Comments SIMON GIBBS VIRAL CAPSID Negative Negative, Equivocal ANTIGEN IGM (BEAKER) (test code = 3418) Simon Gibbs Viral Capsid Antigen IgM Result Interpretation: </= 0.8 Al Negative 0.9-1.0 Al Equivocal >/= 1.1 Al PositiveHEPATITIS B SURFACE [id number] 10:20:00 Test Item Value Reference Range Interpretation Comments HEPATITIS B SURFACE ANTIBODY < mIU/mL <8.0 (BEAKER) (test code = 647) [id number] 10:05:00 Test Item Value Reference Range Interpretation Comments THYROID STIMULATING HORMONE 0.11 uIU/mL 0.35-4.94 L (BEAKER) (test code = 772) HEPATITIS B SURFACE [id number] 09:45:00 Test Item Value Reference Range Interpretation Comments HEPATITIS B SURFACE ANTIGEN (2) Nonreactive Nonreactive (BEAKER) (test code = 2585) HEPATITIS B CORE ANTIBODY, [id number] 09:45:00 Test Item Value Reference Range Interpretation Comments HEPATITIS B CORE IGM ANTIBODY Nonreactive Nonreactive (BEAKER) (test code = 645) HEPATITIS A ANTIBODY, [id number] 09:42:00 Test Item Value Reference Range Interpretation Comments HEPATITIS A IGG ANTIBODY (BEAKER) Reactive Nonreactive A (test code = 2797) HIV-1 ANTIGEN WITH HIV-1/2 [id number] 09:42:00 Test Item Value Reference Range Interpretation Comments HIV-1 ANTIGEN WITH HIV 1\\T\\2 Nonreactive Nonreactive ANTIBODY (2) (BEAKER) (test code = 2586) VITAMIN D, [id number] 09:41:00 Test Item Value Reference Range Interpretation Comments VITAMIN D 25-OH (BEAKER) (test 24.9 ng/mL 6.6-49.9 code = 2764) Effective 12/17/2016: Reference Range ChangeNew: 6.6-49.9 ng/mL Previous: 13.0-47.8 ng/mLRecommended Vitamin D Target Range: 30.0-40.0 ng/mL CARCINOEMBRYONIC ANTIGEN (CEA)2018-05-26 09:36:00 Test Item Value Reference Range Interpretation Comments CARCINOEMBRYONIC ANTIGEN (BEAKER) 2.7 ng/mL 0.0-5.0 (test code = 685) ALPHA FETOPROTEIN (AFP), TUMOR [id number] 09:36:00 Test Item Value Reference Range Interpretation Comments ALPHA-FETOPROTEIN (BEAKER) (test 15.8 ng/mL <10.0 H code = 1094) HEPATITIS A ANTIBODY, [id number] 09:36:00 Test Item Value Reference Range Interpretation Comments HEPATITIS A IGM ANTIBODY (BEAKER) Nonreactive Nonreactive (test code = 498) URIC [id number] 09:32:00 Test Item Value Reference Range Interpretation Comments URIC ACID (BEAKER) (test code = 5.0 mg/dL 2.6-7.2 773) [id number] 09:32:00 Test Item Value Reference Range Interpretation Comments MAGNESIUM (BEAKER) (test code = 1.9 mg/dL 1.6-2.6 627) [id number] 09:32:00 Test Item Value Reference Range Interpretation Comments PHOSPHORUS (BEAKER) (test code = 3.6 mg/dL 2.3-4.7 604) COMPREHENSIVE METABOLIC [id number] 09:32:00 Test Item Value Reference Range Interpretation [...] NOT APPLICABLE FOR DIALYSIS PATIEN TS. LIPID [id number] 09:32:00 Test Item Value Reference Range Interpretation [...] Borderline 130-159 High 160-189 Very High >=190BILIRUBIN, [id number] 09:32:00 Test Item Value Reference Range Interpretation Comments BILIRUBIN DIRECT (BEAKER) (test 0.4 mg/dL 0.1-0.5 code = 706) GAMMA GLUTAMYL TRANSFERASE (GGT)2018-05-26 09:32:00 Test Item Value Reference Range Interpretation Comments GAMMA GLUTAMYL TRANSFERASE (BEAKER) 59 U/L 9-64 (test code = 364) BLOOD GAS, [id number] 09:27:00 Test Item Value Reference Range Interpretation [...] (BEAKER) (test code = 1819) 100.0 % [id number] 09:17:00 Test Item Value Reference Range Interpretation [...] % 20-55 L (test code = 2590) [id number] 09:14:00 Test Item Value Reference Range Interpretation Comments ETHANOL (BEAKER) (test code = 400) < mg/dL <=10 CBC W/PLT COUNT & AUTO [id number] 09:06:00 Test Item Value Reference Range Interpretation [...] 0-1 PERCENT (BEAKER) (test code = 2801) [id number] 09:02:00 Test Item Value Reference Range Interpretation Comments FIBRINOGEN LEVEL (BEAKER) (test 349 mg/dl 225-434 code = 658) [id number] 09:02:00 Test Item Value Reference Range Interpretation Comments PARTIAL THROMBOPLASTIN TIME 30.6 seconds 22.5-36.0 (BEAKER) (test code = 760) CALCIUM, [id number] 08:50:00 Test Item Value Reference Range Interpretation Comments CALCIUM IONIZED (BEAKER) (test 1.15 mmol/L 1.12-1.27 code = 698) PH, BLOOD (BEAKER) (test code = 7.34 9140) TISSUE [id number] 09:42:00Surgical Pathology Report Case: [id number] Authorizing Provider: Dennis Manning MD Collected: 04/07/2018 1033 Ordering Location: [facility] Endoscopy Received: 04/07/2018 1616 Services Pathologist: Sheila Hamilton MD Specimen: Biopsy, Gastric, GASTRIC BX A. STOMACH, RANDOM BIOPSIES: - ANTRAL MUCOSA WITH REACTIVE GASTROPATHY AND MILD CHRONIC INACTIVE GASTRITIS - OXYNTIC MUCOSA WITH NO SIGNIFICANT DIAGNOSTIC ABNORMALITY - NEGATIVE FOR HELICOBACTER PYLORI ORGANISMS BY WARTHIN STARRY STAIN - NEGATIVE FOR INTESTINAL METAPLASIA, DYSPLASIA, MALIGNANCY Signing Pathologist Direct Phone Line: [phone] signed by Sheila Hamilton MD on 04/08/2018 at 9:42 [id number] chronic pancreatitis Gastric biopsy The specimen is received in a formalin-filled container labeled with the patient's information and labeled "gastric biopsy" and consists of multiple fragments of harden-pink soft tissue ranging from 0.1 to 0.3 cm, submitted entirely inA1. CG/ew Performed.The interpretation of this case included the use of immunohistochemistry or special stains. Immunohistochemistry technical testing was performed at [facility],Pathology Laboratory where it was developed and [...] to perform high complexity clinical laboratory testing.POCT-GLUCOSE [id number] 10:20:00 Test Item Value Reference Range Interpretation Comments POC-GLUCOSE METER 185 mg/dL 70-110 H TESTED AT [facility] 6720 (NATE) (test code = LUCITA SHAIKH [place] 1538) [address] HEPATOBILIARY IMAGING W/ [id number] 16:11:00Referring: Dr. Najma Underwood REPORT PROCEDURE: HEPATOBILIARY SCAN with Sincalide Infusion CPT CODE: 73998 INDICATION: Cholelithiasis, worsening abdominal pain PROTOCOL: 5.4 [...] in response tosincalide stimulation. . Signed: Afua Doveort Verified Date/Time: 03/19/2018 16:11:41 Reading Location: [address] Reading Room HEPATITIS C PCR, [id number] 16:20:00 Test Item Value Reference Range Interpretation Comments HCV RESULT COMPONENT HCV RNA not detected HCV RNA not detected (NATE) (test code = 2699) This test uses a Real-Time Polymerase Chain Reaction (RT-PCR) methodology and was performed using [employer]IKE Ampliprep/KIKE TaqMan HCV test kit version 2.0 ([employer]).Reportable range for this assay is 15 - 100,000,000 IU per mL (1.18 - 8.00 Log IU/mL).HEPATITIS B CORE ANTIBODY, TOTAL 2018-03-11 15:21:00 Test Item Value Reference Range Interpretation Comments HEPATITIS B CORE TOTAL ANTIBODY Reactive Nonreactive A (NATE) (test code = 497) MR, ABDOMEN, [id number] 15:10:00Referring: Dr. Najma Robledo Abdominal VesselsFINAL REPORT [...] MDReport Verified Date/Time: 03/11/2018 15:10:28 Reading Location: [address] Radiology Reading Room TITIS A ANTIBODY, [id number] 14:13:00 Test Item Value Reference Range Interpretation Comments HEPATITIS A IGG ANTIBODY (BEAKER) Reactive Nonreactive A (test code = 2797) HEPATITIS B SURFACE [id number] 14:13:00 Test Item Value Reference Range Interpretation Comments HEPATITIS B SURFACE ANTIBODY < mIU/mL <8.0 (BEAKER) (test code = 647) HEPATITIS B SURFACE [id number] 13:53:00 Test Item Value Reference Range Interpretation Comments HEPATITIS B SURFACE ANTIGEN (2) Nonreactive Nonreactive (BEAKER) (test code = 2585) HEPATIC FUNCTION [id number] 13:39:00 Test Item Value Reference Range Interpretation [...] = 14 U/L 6-55 347) BASIC METABOLIC [id number] 13:39:00 Test Item Value Reference Range Interpretation [...] NOT APPLICABLE FOR DIALYSIS PATIEN TS. PROTHROMBIN TIME/[id number] 13:15:00 Test Item Value Reference Range Interpretation Comments PROTIME (BEAKER) (test code = 13.7 seconds 11.7-14.7 759) INR (BEAKER) (test code = 370) 1.0 <=5.9 RECOMMENDED COUMADIN/WARFARIN INR THERAPY RANGESSTANDARD DOSE: 2.0 - 3.0 Includes: PROPHYLAXIS forvenous thrombosis, systemic embolization; TREATMENT for venous thrombosis and/or pulmonary embolus.HIGH RISK: Target INR is 2.5-3.5 for patients with mechanical heart valves.[id number] 13:12:00 Test Item Value Reference Range Interpretation Comments POC-CREATININE 0.7 mg/dL 0.6-1.3 TESTED AT [facility] 6720 ([facility]) (test [place] code = 1859) [address] POC-EGFR (BEAKER) 84 mL/min/1.73M2 (test code = 1860) CBC W/PLT COUNT & AUTO [id number] 13:11:00 Test Item Value Reference Range Interpretation [...] PERCENT (BEAKER) (test code = 2801) URINE [id number] 17:30:00 Test Item Value Reference Range Interpretation [...] glabrat a 10-19,000 col/mL skin floraU/S, ABDOMINAL, [id number] 15:32:00Abdomen limited area? Add comment if clarification [...] MDReport Verified Date/Time: 02/06/2018 15:32:55 Reading Location: [facility] B1 C013Y CT Body Reading Room URINALYSIS W/ [id number] 14:28:00 Test Item Value Reference Range Interpretation [...] = 1585) Moderate SOURCE(BEAKER) (test code = 9405) [id number] 13:38:00 Test Item Value Reference Range Interpretation Comments LIPASE (BEAKER) (test code = 749) 22 U/L 8-78 [id number] 13:38:00 Test Item Value Reference Range Interpretation Comments AMYLASE (BEAKER) (test code = 349) 25 U/L 25-125 BASIC METABOLIC [id number] 13:38:00 Test Item Value Reference Range Interpretation [...] APPLICABLE FOR DIALYSIS PATIEN TS. HEPATIC FUNCTION [id number] 13:38:00 Test Item Value Reference Range Interpretation [...] 6-55 347) CBC W/PLT COUNT & AUTO [id number] 13:09:00 Test Item Value Reference Range Interpretation [...] % 0-1 PERCENT (BEAKER) (test code = 5591)
[2020-01-06] MEDS ORDERED: LIDOCAINE 1% MPF 5 ML VIAL ONE ×2 (22:45→23:20)
--- NOTE | 2020-01-06 23:32 | EDPHYS ---
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 23:26 Patient presents to ED for recheck of: puncture wound. The affected area is on the rn abdomen. Reports had paracentesis performed earlier today in [place], for ascites, gets it every week, today went home and began to leak. got 2 separate puncture wounds. No fever. No pain.. Historical: - Allergies: 22:16 Sulfa (Sulfonamide Antibiotics); jd3 - PMHx: 22:16 Cirrhosis; Cyst on pancreas; Diabetes - NIDDM; HEP C; liver cancer; Pancreatitis; jd3 Rheumatoid Arthritis; - PSHx: 22:16 ; hand surgery; jd3 - Immunization history:: Adult Immunizations up to date. - Social history:: Smoking status: Patient/guardian denies using tobacco, the patient reports quitting approximately 1 years ago. - Family history:: not pertinent. - Hospitalizations: : No recent hospitalization is reported. ROS: 23:26 Constitutional: Negative for fever, chills, and weight loss, Abdomen/GI: + 2 puncture rn wounds to abdomen with leakage. Exam: 23:26 Constitutional: This is a well developed, well nourished patient who is awake, alert, rn and in no acute distress. Abdomen/GI: Soft, non-tender, + 2 puncture wounds RLQ, with serous fluid drainage, small but steady. Vital Signs: 22:16 BP 143 / 52; Pulse 80; Resp 16 S; Temp 98.3(O); Pulse Ox 100% on R/A; Weight 81.65 kg jd3 (R); Height 5 ft. 4 in. (162.56 cm) (R); Pain 1/10; 23:10 BP 135 / 54; Pulse 78; Resp 18; Pulse Ox 99% ; Pain 0/10; fu 22:16 Body Mass Index 30.90 (81.65 kg, 162.56 cm) jd3 Procedures: 23:26 Performed Suture of puncture wounds on abdomen, x 2, 2 sutures each using 4-0 prolene, rn drainage stopped, tolerated well. used 2 cc of lidocaine without epi. . MDM: 22:23 Patient medically screened. rn 23:26 Differential diagnosis: draining puncture wounds. Data reviewed: vital signs, nurses rn notes, and as a result, I will discharge patient. Counseling: I had a detailed discussion with the patient and/or guardian regarding: the historical points, exam findings, and any diagnostic results supporting the discharge/admit diagnosis, the need for outpatient follow up, to return to the emergency department if symptoms worsen or persist or if there are any questions or concerns that arise at home. Special discussion: I discussed with the patient/guardian in detail that at this point there is no indication for admission to the hospital. It is understood, however, that if the symptoms persist or worsen the patient needs to return immediately for re-evaluation. Administered Medications: 23:00 Drug: Lidocaine (1 %) 1 vials {Note: administered by Dr. Ospina.} Volume: 5 ml; Route: fu Infiltration; Disposition: 01/06/20 23:31 Discharged to Home. Impression: Puncture wound of abdominal wall - post-procedural after paracentesis. - Condition is Stable. - Discharge Instructions: Puncture Wound, Paracentesis, Care After. - Medication Reconciliation Form, Thank You Letter, Antibiotic Education, Prescription Opioid Use form. - Follow up: Private Physician; When: As needed; Reason: Recheck today's complaints, Re-evaluation by your physician. - Problem is new. - Symptoms have improved. Signatures: Kleber Ospina MD MD rn Davies, Jonathon, RN RN jd3 Umadhay, Felix, RN RN fu Corrections: (The following items were deleted from the chart) 23:39 23:31 01/06/2020 23:31 Discharged to Home. Impression: Puncture wound of abdominal wall fu - post-procedural after paracentesis. Condition is Stable. Forms are Medication Reconciliation Form, Thank You Letter, Antibiotic Education, Prescription Opioid Use. Follow up: Private Physician; When: As needed; Reason: Recheck today's complaints, Re-evaluation by your physician. Problem is new. Symptoms have improved. rn
--- NOTE | 2020-01-06 23:32 | ER ---
Nurse's Notes [facility] Name: Veronika Carrillo Age: 64 yrs Sex: Female : 1955 Arrival Date: 01/06/2020 Time: 22:07 Bed 15 Private MD: Diagnosis: Puncture wound of abdominal wall - post-procedural after paracentesis Presentation: 01/05 22:14 Chief complaint: Patient states: "I had a parosteitis done in [place] this morning and jd3 it is leaking pretty good now. done at [facility]". Coronavirus screen: At this time, the client does not indicate any symptoms associated with coronavirus-19. Ebola Screen: Patient negative for fever greater than or equal to 101.5 degrees Fahrenheit, and additional compatible Ebola Virus Disease symptoms. Initial Sepsis Screen: Does the patient meet any 2 criteria? No. Patient's initial sepsis screen is negative. Does the patient have a suspected source of infection? No. Patient's initial sepsis screen is negative. Risk Assessment: Do you want to hurt yourself or someone else? Patient reports no desire to harm self or others. Onset of symptoms was January 06, 2020. 22:14 Method Of Arrival: Ambulatory jd3 22:14 Acuity: ADRIEL 3 jd3 22:[address] Kaplan is new primary care doctor. jd3 Historical: - Allergies: 22:16 Sulfa (Sulfonamide Antibiotics); jd3 - PMHx: 22:16 Cirrhosis; Cyst on pancreas; Diabetes - NIDDM; HEP C; liver cancer; Pancreatitis; jd3 Rheumatoid Arthritis; - PSHx: 22:16 ; hand surgery; jd3 - Immunization history:: Adult Immunizations up to date. - Social history:: Smoking status: Patient/guardian denies using tobacco, the patient reports quitting approximately 1 years ago. - Family history:: not pertinent. - Hospitalizations: : No recent hospitalization is reported. Screenin:22 Abuse screen: Denies threats or abuse. Nutritional screening: No deficits noted. fu Tuberculosis screening: No symptoms or risk factors identified. Fall Risk None identified. Assessment: 23:00 General: Appears in no apparent distress. Behavior is calm, cooperative, appropriate fu for age, Denies fever, feeling ill, fatigue, chills. Pain: Denies pain. Complains of pain in right abdomen Pain does not radiate. Pain currently is 2 out of 10 on a pain scale. Quality of pain is described as sore. Neuro: Level of Consciousness is awake, alert, obeys commands, Oriented to person, place, time, situation, Infusion Rn are equal bilaterally Moves all extremities. Gait is steady, Speech is normal, Facial symmetry appears normal. Cardiovascular: Denies chest pain, nausea, vomiting. Respiratory: Respiratory effort is even, unlabored. Derm: leaking post surgical site on the right side of the abdomen. Musculoskeletal: No signs and/or symptoms reported regarding the musculoskeletal system. Vital Signs: 22:16 BP 143 / 52; Pulse 80; Resp 16 S; Temp 98.3(O); Pulse Ox 100% on R/A; Weight 81.65 kg jd3 (R); Height 5 ft. 4 in. (162.56 cm) (R); Pain 1/10; 23:10 BP 135 / 54; Pulse 78; Resp 18; Pulse Ox 99% ; Pain 0/10; fu 22:16 Body Mass Index 30.90 (81.65 kg, 162.56 cm) jd3 ED Course: 22:07 Patient arrived in ED. ds1 22:15 Triage completed. jd3 22:18 Arm band placed on. jd3 22:23 Kleber Ospina MD is Attending Physician. rn 23:16 Ulises Silva RN is Primary Nurse. fu 23:22 Patient has correct armband on for positive identification. Bed in low position. Call fu light in reach. Pulse ox on. NIBP on. 23:22 Assist provider with laceration repair on right lower quadrant Set up tray. Performed fu by Kleber Ospina MD Patient tolerated. 23:38 Patient did not have IV access during this emergency room visit. fu Administered Medications: 23:00 Drug: Lidocaine (1 %) 1 vials {Note: administered by Dr. Ospina.} Volume: 5 ml; Route: fu Infiltration; Outcome: 23:31 Discharge ordered by . rn 23:38 Discharged to home ambulatory. fu 23:38 Condition: stable 23:38 Discharge instructions given to patient, Instructed on discharge instructions, follow up and referral plans. Demonstrated understanding of instructions, follow-up care. 23:39 Patient left the ED. fu Signatures: Dina Aguilar ds1 Kleber Ospina MD MD rn Davies, Jonathon, RN RN jUlises Jackson RN RN fu Corrections: (The following items were deleted from the chart) 22:19 22:16 Pulse 80bpm; Resp 16bpm; Spontaneous; Pulse Ox 100% RA; Temp 98.3F Oral; 81.65 kg jd3 Reported; Height 5 ft. 4 in. Reported; BMI: 30.9; Pain 1/10; jd3
[2020-01-07 00:48] VITALS: TEMP 98.3
[2020-01-07 00:57] VITALS: BP 135/54; O2SAT 99
== END 2020-01-06 23:39 | disposition home or self-care (01) ==
LOC: ER 22:05
DX: T88.8XXA Other specified complications of surgical and medical care, not elsewhere classified, initial encounter (principal); B19.20 Unspecified viral hepatitis C without hepatic coma; Z88.2 Allergy status to sulfonamides; Z85.05 Personal history of malignant neoplasm of liver; K74.60 Unspecified cirrhosis of liver
CPT/HCPCS: 99283

== ENCOUNTER 2020-01-30 09:47 | Emergency (ER) | payer OTHER ==
--- OUTSIDE RECORDS SUMMARY | 2020-01-30 10:15 | XMS REPORT | Clinical Summary ---
:1955 Author Organization [facility] Address [address] [place] [address] Care Team Providers Name Role Phone Irma [...] unspecified whether ascites present (HCC), Cancer screening [id number] Take 1 capsule by 0 Active ylase [...] unspecified whether ascites present (HCC), Cancer screening HYDROcodone-acetam Take 5-325 tablets 0 Active inophen (NORCO by mouth as 0 5-325) 5-325 mg needed. per tablet traMADol (ULTRAM) Take 50 mg by 0 [...] pending further imaging/testing and official review at [facility]. Liver lesion 05/26/2018 Last Assessment & Plan: [...] Encounters Date Type Specialty Care Team Description 01/27/2020 Hospital Encounter Radiology YeecasPeggy Chronic hepatitis C without hepatic coma (HCC); MD Venancio Hepatocellular carcinoma (HCC); Other ascites 01/27/2020 Travel 01/26/2020 Orders Only Transplant Ruslan, Luz Madrigal RN 01/20/2020 Hospital Encounter Radiology Peggy Navarrete Chronic hepatitis C without hepatic coma (HCC); MD Venancio Hepatocellular carcinoma (HCC); Other ascites 01/20/2020 Documentation Transplant BooneAbdirashideybettina Hepatology 01/20/2020 Documentation Transplant Ruslan, Luz Madrigal RN 01/20/2020 Documentation Transplant BooneAbdirashideybettina Hepatology 01/20/2020 Telephone Transplant Ruslan, EGD follow up Luz Madrigal RN 01/19/2020 Orders Only Transplant Mercer, Chronic hepatit is C without hepatic coma (HCC) (Primary Dx); Luz Madrigal RN Hepatocellular carcinoma (HCC); Other ascites 01/18/2020 Orders Only Transplant Peggy Navarrete Liver disease ; Hepatology MD Vneancio Hepatic cirrhos is, unspecified hepatic cirrhosis type, unspecified whether ascites present (HCC); Hepatocellular carcinoma 01/18/2020 Office Visit Transplant Sa Rosalbaira Hepatic cirrh osis, unspecified hepatic cirrhosis type, unspecified whether ascites present (HCC) (Primary Dx); Hepatology MD Venancio Other ascites; Hepatocellular carcinoma 01/18/2020 Documentation Transplant BooneAbdirashideybettina Hepatology 01/18/2020 Orders Only Transplant Mercer, Hepatocellular carcinoma (HCC) (Primary Dx); Hepatenoch Madrigal RN 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); Chronic hepatit is C without hepatic coma (HCC) 01/13/2020 Hospital Encounter Radiology YeeSa casira Other a scites; MD Venancio Hepatocellular carcinoma 01/13/2020 Travel 01/12/2020 Abstract Hepatology Yamila Reddy MA 01/10/2020 Telephone Transplant Mercer, Follow-up Luz Madrigal RN 01/09/2020 Telephone Transplant Ruslan, Leaking paracen tesis Hepatenoch Madrigal RN site 01/09/2020 Documentation Transplant Luz Mercer RN 01/06/2020 Hospital Encounter Radiology Peggy Navarrete Liver [...] Hepatocellular carcinoma 01/06/2020 Travel 01/05/2020 Telephone Transplant Mercer, Follow-up Hepatology Joel Madrigal RN 01/05/2020 Orders Only Transplant Mercer, Hepatology Joel Madriagl RN 01/02/2020 Outside Orders Radiology Peggy Navarrete MD 12/30/2019 Hospital Encounter Radiology Sa Rosalbaira Hepatoc ellular carcinoma ; MD Venancio Other ascites 12/23/2019 Hospital Encounter Radiology Sa Rosalbaira Hepatoc ellular carcinoma ; MD Venancio Other ascites 12/16/2019 Hospital Encounter Radiology BrentadeSa casira Hepatoc ellular carcinoma ; MD Venancio Other ascites 12/15/2019 Orders Only Transplant Mercer, Other ascites ( Primary Dx); Hepatenoch Madrigal RN Hepatocellular carcinoma 12/15/2019 Documentation Transplant Boone, Micheyl Hepatology 12/15/2019 Documentation Central Scheduling Boone, Micheyl 12/15/2019 Telephone Transplant Mercer, Follow-up Luz aMdrigal RN 12/09/2019 Hospital Encounter Radiology BrentchaseSaPeggy Hepatoc ellular carcinoma ; MD Venancio Other ascites 12/09/2019 Travel 12/08/2019 Orders Only Transplant Mercer, Hepatocellular carcinoma (Primary Dx); Hepatenoch Madrigal RN Other ascites 12/05/2019 Orders Only Transplant Mercer, Hepatic cirrhos is, unspecified hepatic cirrhosis type, unspecified whether ascites present (HCC) (Primary Dx); Hepatenoch Madrigal RN Liver disease; Hepatocellular carcinoma 12/02/2019 Documentation Transplant Boone, Micheyl Hepatology 12/02/2019 Documentation Transplant Boone, Micheyl Hepatology 11/23/2019 Hospital Encounter General Internal Zindani, Hepat ic cirrhosis, unspecified hepatic cirrhosis type, unspecified whether ascites present (HCC); - Medicine MD Kadi Hepatocellular carcinoma (HCC); 11/27/2019 Gilberto, Other ascites; Mrinalini Elisabet, Peritonitis (HCC) Marcela Recinos MD 11/23/2019 Office Visit Transplant Peggy Navarrete Hepatic cirrh osis, unspecified hepatic cirrhosis type, unspecified whether ascites present (HCC) (Primary Dx); Hepatology MD Venancio Other ascites; Zindani, Portal hyperten sadiq (HCC); MD Kadi Hepatocellular carcinoma ; Peritonitis (HC C) 11/23/2019 Abstract Transplant Renetta Washington 11/23/2019 Travel 11/23/2019 Telephone Transplant Peggy Navarrete Results Hepatenoch Craft MD 11/22/2019 Hospital Encounter Radiology Peggy Navarrete MD 11/22/2019 Orders Only Radiology Praveen, Other ascites; Marthelma Chronic hepatit is C without hepatic coma (HCC) 11/22/2019 Orders Only Transplant Mercer, Other ascites ( Primary Dx); Hepatology Joel Madrigal RN Chronic hepati tis C without hepatic coma (HCC) 11/21/2019 Documentation Transplant Mercer, Luz Madrigal RN 11/18/2019 Anesthesia Event Graves, Shahid-Gisselle Carrillo MD Shahid, Janina Reese MD 11/18/2019 Surgery Virtual, PROCEDURE [...] Pre-Admission Testing 11/17/2019 Travel 11/15/2019 Telephone Transplant Ruslan, patient call Hepatenoch Madrigal RN 11/15/2019 Orders Only Transplant Mercer, Chronic hepatit is C without hepatic coma (HCC); Hepatenoch Madrigal RN Portal hyperte nsion (HCC); Right [...] Navarrete Other specified MD Venancio pre-operative examination (Pr imary Dx) 11/11/2019 Hospital Encounter Radiology Peggy Navarrete Hepatoc ellular carcinoma ; MD Venancio Chronic hepatit is C without hepatic coma (HCC) 11/02/2019 Orders Only Transplant Mercer, Chronic hepatit is C without hepatic coma (HCC) (Primary Dx); Hepatenoch Madrigal RN Hepatocellular carcinoma 11/01/2019 Hospital Encounter Radiology Peggy Navarrete Hepatoc ellular carcinoma ; MD Venancio Chronic hepatit is C without hepatic coma (HCC) 10/28/2019 Office Visit Nani French Radiology Kvng MUSA MD 10/28/2019 Travel 10/24/2019 Orders Only Transplant Mercer, Chronic hepatit is C without hepatic coma (HCC); Hepatology Joel Madrigal RN Portal hyperte nsion (HCC); Right upper kerry drant abdominal pain; Immunity status testing; Chronic pancrea titis, unspecified pancreatitis type (HCC); Other ascites; Calculus of gal lbladder without cholecystitis without obstruction; Alcoholic cirrh osis, unspecified whether ascites present (HCC); Cancer screenin g; Hepatic cirrhos is, unspecified hepatic cirrhosis type, unspecified whether ascites present (HCC) 10/24/2019 Documentation Transplant Mary Boone Hepatology 10/21/2019 Telephone Transplant Mercer, FOLLOW UP CALL Hepatology Joel Madrigal RN 10/20/2019 Telephone Transplant Peggy Navarrete Hepatic Cance r Hepatology MD Venancio 10/20/2019 Documentation Transplant BooneMary Hepatology 10/20/2019 Documentation Transplant Mary Boone Hepatology 10/19/2019 Hospital Encounter Radiology Peggy Navarrete Hepatoc ellular carcinoma ; MD Venancio Chronic hepatit is C without hepatic coma (HCC) 10/19/2019 Orders Only Lab Khaderi, Peggy Hepatocellula r carcinoma ; MD Venancio Chronic hepatit is C without hepatic coma (HCC) 10/19/2019 Office Visit Transplant Khaderi, Peggy Hepatocellula r carcinoma (Primary Dx); Hepatology MD Venancio Chronic hepatit is C without hepatic coma (HCC) 10/19/2019 Documentation Transplant Mercer, Hepatology Joel Madrigal RN 10/19/2019 Orders Only Transplant Mercer, Hepatic cirrhos is, unspecified hepatic cirrhosis type, unspecified whether ascites present (HCC); Hepatology Joel Madrigal RN Chronic hepati tis C without hepatic coma (HCC); Other ascites; Portal hyperten sadiq (HCC); Right upper kerry drant abdominal pain; Immunity status testing; Chronic pancrea titis, unspecified pancreatitis type (HCC); Calculus of gal lbladder without cholecystitis without obstruction; Alcoholic cirrh osis, unspecified whether ascites present (HCC); Cancer screenin g 2019 Documentation Transplant Mary Boone Hepatology 2019 Telephone Transplant Ruslan, phone call Hepatenoch Madrigal RN 2019 Orders Only Transplant Mercer, Hepatocellular carcinoma (Primary Dx); Hepatology Joel Madrigal RN Chronic hepati tis C without hepatic coma (HCC); Hepatic cirrhos is, unspecified hepatic cirrhosis type, unspecified whether ascites present (HCC) 10/13/2019 Abstract Transplant Maureen, Hepatology KAVITA Driscoll 10/11/2019 Documentation Transplant Mercer, Hepatenoch Madrigal RN 10/07/2019 Orders Only Lab Khaderi, Peggy Hepatocellula r carcinoma ; MD Venancio Hepatic cirrhos is, unspecified hepatic cirrhosis type, unspecified whether ascites present (HCC); Other ascites 10/07/2019 Hospital Encounter Radiology Rosalba Peggy Hepatoc ellular carcinoma ; MD Venancio Hepatic cirrhos is, unspecified hepatic cirrhosis type, unspecified whether ascites present (HCC); Other ascites 10/07/2019 Hospital Encounter Radiology Yeeri Peggy Hepatoc ellular carcinoma ; MD Venancio Hepatic cirrhos is, unspecified hepatic cirrhosis type, unspecified whether ascites present (HCC); Other ascites 10/07/2019 Hospital Encounter Radiology Peggy Navarrete MD 10/07/2019 Hospital Encounter Radiology Peggy aNvarrete Hepatoc ellular carcinoma ; MD Venancio Hepatic cirrhos is, unspecified hepatic cirrhosis type, unspecified whether ascites present (HCC); Other ascites 10/06/2019 Telephone Transplant Mercer, Follow-up Hepatology Joel Madrigal RN 09/16/2019 Orders Only Transplant Mercer, Hepatic cirrhos is, unspecified hepatic cirrhosis type, unspecified whether ascites present (HCC) (Primary Dx); Hepatology Joel Madrigal RN Chronic hepati tis C without hepatic coma (HCC); Other ascites 09/09/2019 Refill Hepatology Peggy Navarrete MD 08/12/2019 Telephone Transplant Leela Celis in the R lidia Hepatology ALCON Russell 08/11/2019 Hospital Encounter Radiology Peggy [...] Peripheral margie a 07/21/2019 Orders Only Transplant Mercer, Hepatocellular carcinoma (Primary Dx); Hepatology Joel Madrigal RN Hepatic cirrho sis, unspecified hepatic cirrhosis type, unspecified whether ascites present (HCC); Chronic hepatit is C without hepatic coma (HCC) 07/12/2019 Hospital Encounter Radiology Yeeri Peggy Hepatoc ellular carcinoma ; MD Venancio Hepatic cirrhos is, unspecified hepatic cirrhosis type, unspecified whether ascites present (HCC); Other ascites 07/12/2019 Hospital Encounter Radiology Khaderi, Peggy Hepatoc ellular carcinoma (HCC); MD Venancio Hepatic cirrhos is, unspecified hepatic cirrhosis type, unspecified whether ascites present (HCC); Other ascites 07/12/2019 Orders Only Radiology Robin Washburn Hepatocellular carcinoma ; Hepatic cirrhos is, unspecified hepatic cirrhosis type, unspecified whether ascites present (HCC); Other ascites 06/30/2019 Orders Only Transplant Mercer, Hepatocellular carcinoma (Primary Dx); Hepatology Joel Madrigal RN Hepatic cirrho sis, unspecified hepatic cirrhosis type, unspecified whether ascites present (HCC); Other ascites 06/10/2019 Documentation Transplant Kylie Adler, Hepatology RN 06/09/2019 Documentation Transplant Mercer, Hepatology Joel Madrigal RN 06/08/2019 Documentation Transplant Rosalba, Peggy Hepatology MD Venancio 06/07/2019 Orders Only Transplant Mercer, Hepatocellular carcinoma (Primary Dx); Hepatology Joel Madrigal RN Hepatic cirrho sis, unspecified hepatic cirrhosis type, unspecified whether ascites present (HCC); Other ascites 06/03/2019 Telephone Transplant Mary Boone Hepatology 06/02/2019 Abstract Transplant Maureen, Hepatology KAVITA Driscoll 05/27/2019 Orders Only Lab Brentaderi, Peggy Chronic hepat itis C without hepatic coma (HCC); MD Venancio Hepatocellular carcinoma ; Other ascites 05/27/2019 Hospital Encounter Radiology Khaderi, Peggy Chronic hepatitis C without hepatic coma (HCC); MD Venancio Hepatocellular carcinoma ; Other ascites 05/27/2019 Hospital Encounter Radiology Khaderi, Peggy Chronic hepatitis C without hepatic coma (HCC); MD Venancio Hepatocellular carcinoma ; Other ascites 05/27/2019 Outside Orders Varghese Valles 04/15/2019 Hospital Encounter Peggy Navarrete Chronic hepatitis C without hepatic coma (HCC); MD Venancio Hepatocellular carcinoma ; Other ascites 04/08/2019 Outside Orders Radiology Fela Reyes 04/07/2019 Orders Only Transplant Mercer, Hepatocellular carcinoma (Primary Dx); Hepatology Joel Madrigal RN Hepatic cirrho sis, unspecified hepatic cirrhosis type, unspecified whether ascites present (HCC) 03/31/2019 Office Visit Nani French II, MD 02/23/2019 Hospital Encounter Radiology Peggy Navarrete Hepatoc ellular carcinoma ; MD Venancio Chronic hepatit is C without hepatic coma (HCC) 02/23/2019 Office Visit Transplant Peggy Navarrete Hepatic cirrh osis, unspecified hepatic cirrhosis type, unspecified whether ascites present (HCC) (Primary Dx); Hepatology MD Venancio Other ascites; Portal hyperten sadiq (HCC); Hepatocellular carcinoma 02/23/2019 Travel 02/22/2019 Orders Only Transplant Mercer, Chronic hepatit is C without hepatic coma (HCC) (Primary Dx); Hepatology Joel Madrigal RN Hepatocellular carcinoma ; Other [...] without hepatic coma (HCC) 02/11/2019 Documentation Transplant Mary Boone Hepatology 02/10/2019 Travel 02/10/2019 Outside Orders Varghese Valles after 01/29/2019 Family History Medical History Relation Name Comments [...] Date Recorded Female 07/15/2018 3:19 PM CDT COVID-19 Exposure Response Date Recorded In the last month, have you been in contact with Yes 01/27/2020 8:29 AM PUMP ASSEMBLER someone who was confirmed or suspected to have Coronavirus / COVID-19? Last Filed Vital Signs Vital Sign Reading Time Taken Comments Blood Pressure 115/54 01/27/2020 9:32 AM PUMP ASSEMBLER Pulse 72 01/27/2020 9:32 AM PUMP ASSEMBLER Temperature 36.6 C (97.9 F) 01/27/2020 9:32 AM PUMP ASSEMBLER Respiratory Rate 17 01/27/2020 9:32 AM PUMP ASSEMBLER Oxygen Saturation 100% 01/27/2020 9:32 AM PUMP ASSEMBLER Inhaled Oxygen - - Concentration Weight 90.8 kg (200 lb 3.2 01/18/2020 9:11 patient has a walking oz) AM PUMP ASSEMBLER boot on Height 162.6 cm (5' 4.02") 01/18/2020 9:11 AM PUMP ASSEMBLER Body Mass Index 34.35 01/18/2020 9:11 AM PUMP ASSEMBLER Plan of Treatment Date Type Specialty Care Team Description 02/03/2020 Appointment Radiology Peggy Navarrete MD [address] [address] 02/10/2020 Appointment Radiology Peggy Navarrete MD [address] [address] 02/17/2020 Appointment Radiology Peggy Navarrete MD [address] [address] 04/13/2020 Appointment Peggy Neves MD [address] [address] 04/13/2020 Appointment Pgegy Neves MD [address] [address] 04/13/2020 Appointment Radiology Peggy Navarrete MD [address] [address] 04/13/2020 Orders Only Lab Peggy Navarrete MD [address] [address] 04/13/2020 Appointment Radiology Peggy Navarrete MD [address] [address] 04/25/2020 Office Visit Transplant Hepatology Moriah Navarrete MD [address] [address] Health Maintenance Due Date Last Done Comments COLON CANCER SCREENING COLONOSCOPY 1955 DIABETIC EYE EXAM 10/19/1963 DIABETIC FOOT EXAM 10/19/1963 HEMOGLOBIN A1C 08/26/2018 05/26/2018 PNEUMOCOCCAL 65+ YRS (1 of 1 - 2018 [id number]) INFLUENZA VACCINE (#1) 2019 URINE MICROALBUMIN 04/29/2020 04/29/2019 BREAST CANCER SCREENING 05/26/2020 05/26/2018, 05/26/2018 Procedures Procedure Name Priority Date/Time Associated Diagnosis Comme nts US PARACENTESIS Routine 01/27/2020 9:19 Chronic hepatitis C R esults for this AM [employer] ASSEMBLER without hepatic coma procedu re are in (HCC) the results Hepatocellular section. carcinoma (HCC) Other ascites BODY FLUID CELL COUNT Routine 01/27/2020 8:49 Re sults for this WITH DIFFERENTIAL AM PUMP ASSEMBLER procedure are in the results section. US PARACENTESIS Routine 01/20/2020 9:39 Chronic hepatitis C R esults for this AM PUMP ASSEMBLER without hepatic coma procedu re are in (HCC) the results Hepatocellular section. carcinoma (HCC) Other ascites BODY FLUID CELL COUNT Routine 01/20/2020 8:45 Re sults for this WITH DIFFERENTIAL AM PUMP ASSEMBLER procedure are in the results section. CBC W/PLT COUNT & AUTO Routine 01/18/2020 10:17 Liver di sease Results for this DIFFERENTIAL AM [employer] ASSEMBLER Hepatic cirrhosis, procedure are in unspecified hepatic the resu lts cirrhosis type, section. unspecified whether ascites present (HCC) Hepatocellular carcinoma PROTHROMBIN TIME/INR Routine 01/18/2020 10:17 Liver dise ase Results for this AM [employer] ASSEMBLER Hepatic cirrhosis, procedure are in unspecified hepatic the resu lts cirrhosis type, section. unspecified whether ascites present (HCC) Hepatocellular carcinoma HEPATIC FUNCTION PANEL Routine 01/18/2020 10:17 Liver di sease Results for this AM [employer] ASSEMBLER Hepatic cirrhosis, procedure are in unspecified hepatic the resu lts cirrhosis type, section. unspecified whether ascites present (HCC) Hepatocellular carcinoma CBC W/PLT COUNT & AUTO Routine 01/18/2020 10:17 Liver di sease Results for this DIFFERENTIAL AM [employer] ASSEMBLER Hepatic cirrhosis, procedure are in unspecified hepatic the resu lts cirrhosis type, section. unspecified whether ascites present (HCC) Hepatocellular carcinoma BASIC METABOLIC PANEL Routine 01/18/2020 10:17 Liver dis ease Results for this (7) AM PU[employer] ASSEMBLER Hepatic cirrhosis, procedure are in unspecified hepatic the resu lts cirrhosis type, section. unspecified whether ascites present (HCC) Hepatocellular carcinoma ALPHA FETOPROTEIN Routine 01/18/2020 10:17 Liver disease Results for this (AFP), TUMOR MARKER AM PU[employer] ASSEMBLER Hepatic cirrhosis, pr ocedure are in unspecified hepatic the resu lts cirrhosis type, section. unspecified whether ascites present (HCC) Hepatocellular carcinoma US PARACENTESIS Routine 01/13/2020 11:12 Other ascites Results for this AM [employer] ASSEMBLER Hepatocellular procedure are in carcinoma the results section. BODY FLUID CELL COUNT Routine 01/13/2020 10:53 Re sults for this WITH DIFFERENTIAL AM PUMP ASSEMBLER procedure are in the results section. MR ABDOMEN WITH & Routine 01/06/2020 1:45 [...] 416 ms QTC Calculation(Bazett) 470 ms P [place] 80 degrees R [place] 78 degrees T [place] 45 degrees Normal sinus rhythm Possible Anterior [...] Resul ts for this IV CONTRAST PM PUMP ASSEMBLER procedure are i n the results section. IR EMBOLIZATION Routine 04/15/2019 1:21 Chronic hepatitis C R esults for this ARTERIAL PM PUMP ASSEMBLER without hepatic coma procedu re are in (HCC) the results Hepatocellular section. carcinoma Other ascites INSERT PERIPHERAL IV Routine 04/15/2019 1:11 Res ults for this PM PU[employer] ASSEMBLER procedure are i n the results section. CBC W/PLT COUNT & Routine 04/15/2019 8:45 Result s for this AUTO DIFFERENTIAL AM [employer] ASSEMBLER procedure are in the results section. COMPREHENSIVE Routine 04/15/2019 8:45 Results fo r this METABOLIC PANEL AM PU[employer] ASSEMBLER procedure ar e in the results section. CBC W/PLT COUNT & Routine 04/15/2019 8:45 Result s for this AUTO DIFFERENTIAL AM [employer]SEMBLER procedure are in the results section. APTT Routine 04/15/2019 8:45 Results for this AM [employer] ASSEMBLER procedure are i n the results section. PROTHROMBIN TIME/INR Routine 04/15/2019 8:45 Res ults for this AM [employer] ASSEMBLER procedure are i n the results section. CT CHEST WITHOUT IV Routine 02/23/2019 11:45 Hepatocellular Re sults for this CONTRAST AM PUMP ASSEMBLER carcinoma procedure are in Chronic hepatitis C the resu lts without hepatic coma section . (HCC) NM BONE SCAN WHOLE Routine 02/11/2019 2:11 Hepatocellular Res ults for this BODY PM [employer] ASSEMBLER carcinoma procedure are in Chronic hepatitis C the resu lts without hepatic coma section . (HCC) MR ABDOMEN WITH & Routine 02/11/2019 11:42 Hepatocellular Resu lts for this WITHOUT IV CONTRAST AM PUMP ASSEMBLER carcinoma procedure are in Chronic hepatitis C the resu lts without hepatic coma section . (HCC) POCT-CREATININE Routine 02/11/2019 10:51 Results for this AM [employer] ASSEMBLER procedure are i n the results section. CBC W/PLT COUNT & Routine 02/11/2019 10:25 Hepatocellular Resu lts for this AUTO DIFFERENTIAL AM [employer] ASSEMBLER carcinoma procedure are in Chronic hepatitis C the resu lts without hepatic coma section . (HCC) PROTHROMBIN TIME/INR Routine 02/11/2019 10:25 Hepatocellular R esults for this AM [employer]MP ASSEMBLER carcinoma procedure are in Chronic hepatitis C the resu lts without hepatic coma section . (HCC) HEPATIC FUNCTION Routine 02/11/2019 10:25 Hepatocellular Resul ts for this PANEL AM [employer]MP ASSEMBLER carcinoma procedure are in Chronic hepatitis C the resu lts without hepatic coma section . (HCC) CBC W/PLT COUNT & Routine 02/11/2019 10:25 Hepatocellular Resu lts for this AUTO DIFFERENTIAL AM [employer] ASSEMBLER carcinoma procedure are in Chronic hepatitis C the resu lts without hepatic coma section . (HCC) BASIC METABOLIC Routine 02/11/2019 10:25 Hepatocellular Result s for this PANEL (7) AM [employer] ASSEMBLER carcinoma procedure are in Chronic hepatitis C the resu lts without hepatic coma section . (HCC) ALPHA FETOPROTEIN Routine 02/11/2019 10:25 Hepatocellular Resu lts for this (AFP), TUMOR MARKER AM PUMP ASSEMBLER carcinoma procedure are in Chronic hepatitis C the resu lts without hepatic coma section . (HCC) after 01/29/2019 Results Ultrasound PARACENTESIS (01/27/2020 9:19 AM PUMP ASSEMBLER)Only the most recent of13 resultswithin the time period is included. Specimen Narrative Performed At FINAL REPORT [facility] Ultrasound guided paracentesis Clinical History: Ascites. Sedation: None. Tube Draw Helper: Elaine Blake PA-C Supervising Physician: Nani Pond MD Tube Former Operator: None. Estimated Blood Loss: < 1 mL. Specimen: 5400 mL of clear yellow fluid, samples sent [...] anesthesia was achieved with lidocaine, a 5 Lao one-step catheter was advanced into the peritoneal cavity under ultrasound guidance. After completion of drainage, the cathet er was removed. There was no evidence of complication. Impression: Successful ultrasound guided paracentesi s. Signed: Nani Pond MD Report Verified Date/Time: 01/27/2020 18:28:37 Reading Location: [facility] B1 [id number] [facility] Reading Room Procedure Note Interface, External Ris In - 01/27/2020 6:30 PM PUMP ASSEMBLER FINAL REPORT Ultrasound guided paracentesis Clinical History: Ascites. Sedation: None. Tube Draw Helper: Elaine Blake PA-C Supervising Physician: Nani Pond MD Tube Former Operator: None. Estimated Blood Loss: < 1 mL. Specimen: 5400 mL of clear yellow fluid, samples sent [...] anesthesia was achieved with lidocaine, a 5 Lao one-step catheter was advanced into the peritoneal cavity under ultrasound guidance. After completion of drainage, the cathet er was removed. There was no evidence of complication. Impression: Successful ultrasound guided paracentesi s. Signed: Nani Pond MD Report Verified Date/Time: 01/27/2020 1 8:28:37 Reading Location: [facility] [id number] [facility] [place] Reading Room Performing Organization Address City/State/[place] Phone Number [facility] Body fluid cell count with differential (01/27/2020 8:49 AM PUMP ASSEMBLER)Only the most recent of13 resultswithin the time period is included. Appearance Clear Clear [facility] Color Yellow (A) Colorless, [facility] RBCs 202 (H) <=1 /cu mm [facility] Adjusted WBC Count 74 (H) <=5 /cu mm [facility] Lining Cells 2 (H) <=1 /cu mm [facility] % Segs 29 % [facility] % Lymphs 48 % [facility] % Monos 23 % [facility] % Eos 0 % [facility] % Baso 0 % [facility] Container Body Fluid Sterile Vial [facility] HOSPITAL Specimen Body Fluid - Ascites (disorder) Performing Organization Address [facility]/State/Zipcode Phone Number [facility] [address] [place] [address] CENTER CBC with platelet count + automated diff (01/18/2020 10:17 AM PUMP ASSEMBLER)Only the most recent of12 resultswithin the time period is included. Pathologist Sig nature WBC 4.7 3.5 - 10.5 [facility] K/L [facility] RBC 3.45 (L) 3.93 - 5.22 [facility] M/L [facility] Hemoglobin 9.2 (L) 11.2 - 15.7 [facility] GM/DL [facility] Hematocrit 29.7 (L) 34.1 - 44.9 % [facility] MCV 86.1 79.4 - 94.8 fL [facility] MCH 26.7 25.6 - 32.2 pg [facility] MCHC 31.0 (L) 32.2 - 35.5 [facility] GM/DL [facility] RDW 16.6 (H) 11.7 - 14.4 % [facility] Platelets 90 (L) 150 - 450 K/CU [facility] MPV 9.9 9.4 - 12.3 fL [facility] nRBC 0 0 - 0 /100 WBC [facility] % Neutros 85 % [facility] % Lymphs 5 % [facility] % Monos 9 % [facility] % Eos 1 % [facility] % Baso 0 % [facility] # Neutros 3.98 1.56 - 6.13 [facility] # Lymphs 0.24 (L) 1.18 - 3.74 [facility] # Monos 0.43 (H) 0.24 - 0.36 [facility] K/L [facility] # Eos 0.03 (L) 0.04 - 0.36 [facility] K/L [facility] # Baso 0.01 0.01 - 0.08 [facility] K/L [facility] Immature 0 0 - 1 % [facility] Granulocytes-Relative [facility] Specimen Blood Performing Organization Address City/[facility]/Rust[place] Phone Number [address] [address] CENTER Alpha fetoprotein (AFP), tumor marker (01/18/2020 10:17 AM PUMP ASSEMBLER)Only the most recent of4 resultswithin the time period is included. Pathologist Sig [facility] Alpha-Fetoprotein 4.8 <10.0 ng/mL [facility] Specimen Blood Narrative Performed At Fixture Relamper ID - DANAG [facility] Performing Organization Address [facility]/[place] Phone Number [address] [address] CENTER Prothrombin time/INR (01/18/2020 10:17 AM PUMP ASSEMBLER)Only the most recent of10 results within the time period is included. Pathologist Sig [facility] Protime 15.8 (H) 11.9 - 14.2 seconds [facility] INR 1.30 <=5.90 [facility] Specimen Blood Narrative Performed At Effective 08/04/2018: PT Reference Range [facility] Change New: 11.9-14.2 Previous: 11.7-14.7 RECOMMENDED COUMADIN/WARFARIN INR THERAPY RANGES STANDARD DOSE: 2.0-3.0 Includes: PROPHYLAXIS for venous thrombosis, systemic embolization; TREATMENT for venous thrombosis and/or pulmonary embolus. HIGH RISK: Target INR is 2.5-3.5 for patients wiht mechanical heart valves. Performing Organization Address City/[facility]/Zipcode Phone Number [address] [address] CENTER Hepatic function panel (01/18/2020 10:17 AM PUMP ASSEMBLER)Only the most recent of4 results within the time period is included. Pathologist Sig nature Protein, Total 6.1 6.0 - 8.3 gm/dL [facility] Albumin 3.5 3.5 - 5.0 g/dL [facility] Total Bilirubin 3.1 (H) 0.2 - 1.2 mg/dL [facility] Bilirubin, Direct 1.7 (H) 0.1 - 0.5 mg/dL [facility] Alkaline Phosphatase 233 (H) 40 - 150 U/L [facility] AST 31 5 - 34 U/L [facility] ALT 25 6 - 55 U/L [facility] Specimen Blood Narrative Performed At Fixture Relamper ID - ROSIANG [facility] Specimen slightly icteric Performing Organization Address City/State/Zipcode Phone Number [facility] [address] [place] [address] CENTER Basic Metabolic Panel (01/18/2020 10:17 AM PUMP ASSEMBLER)Only the most recent of5 results within the time period is included. Sodium 131 (L) 136 - 145 meq/L [facility] Potassium 3.4 (L) 3.5 - 5.1 meq/L [facility] Chloride 94 (L) 98 - 107 meq/L [facility] CO2 27 22 - 29 meq/L [facility] BUN 20 7 - 21 mg/dL [facility] Creatinine 1.05 0.57 - 1.25 [facility] mg/dL [facility] Glucose 242 (H) 70 - 105 mg/dL [facility] Calcium 8.3 (L) 8.4 - 10.2 [facility] mg/dL [facility] EGFR 52Comment: ESTIMATED mL/min/1.73 sq [facility] GFR IS NOT m [facility] ACCURATE CENTER CREATININE CLEARANCE IN PREDICTING GLOMERULAR FILTRATION RATE. ESTIMATED GFR IS NOT APPLICABLE FOR DIALYSIS PATIENTS. Specimen Blood Narrative Performed At Fixture Relamper ID - LILIANA [facility] Specimen slightly icteric Performing Organization Address City/State/Zipcode Phone Number [facility] [address] [place] [address] CENTER MR abdomen without & with IV contrast (01/06/2020 1:45 PM CDT)Only the most recent of4 resultswithin the time period is included. Specimen Narrative Performed At FINAL REPORT [facility] TECHNIQUE: MRI of the abdomen WITHOUT an [...] 5:37:27 Performing Organization Address City/State/Zipcode Phone Number [facility] CT chest without IV contrast (01/06/2020 12:40 PM CDT)Only the most recent of4 resultswithin the time period is included. Specimen Narrative Performed At FINAL REPORT [facility] TECHNIQUE: CT scan of the chest WITHOUT [...] 4:49:26 Performing Organization Address City/State/Zipcode Phone Number GE RIS aPTT (12/30/2019 7:58 AM CDT)Only the most recent of5 resultswithin the time period is included. Pathologist Sig nature PTT 33.9 22.5 - 36.0 seconds [facility] Specimen Blood Performing Organization Address City/State/Zipcode Phone Number [address] [address] [place] POC-Glucose meter (11/27/2019 11:51 AM CDT)Only the most recent of21 results within the time period is included. POC-Glucose Meter 221 (H)Comment: : 70 - 110 [facility] TESTED AT [facility] mg/dL [address], [address]: Fixture Relamper/Technicia n ID = [id number] for DAVION WALTON Specimen Blood Performing Organization Address City/[facility]/[place] Phone Number [address] [address] [place] Comprehensive metabolic panel (11/26/2019 4:32 AM CDT)Only the most recent of8 resultswithin the time period is included. Protein, Total 5.7 (L) 6.0 - 8.3 [facility] gm/dL [facility] Albumin 3.3 (L) 3.5 - 5.0 [facility] g/dL [facility] Alkaline 139 40 - 150 U/L [facility] Phosphatase [facility] Total Bilirubin 1.6 (H) 0.2 - 1.2 [facility] mg/dL [facility] Sodium 136 136 - 145 [facility] meq/L [facility] Potassium 4.3 3.5 - 5.1 [facility] meq/L [facility] Chloride 99 98 - 107 [facility] meq/L [facility] CO2 29 22 - 29 meq/L [facility] BUN 21 7 - 21 mg/dL [facility] Creatinine 0.87 0.57 - 1.25 [facility] mg/dL [facility] Glucose 150 (H) 70 - 105 [facility] mg/dL [facility] Calcium 8.3 (L) 8.4 - 10.2 [facility] mg/dL [facility] AST 33 5 - 34 U/L [facility] ALT 39 6 - 55 U/L [facility] EGFR 65Comment: mL/min/1.73 [facility] ESTIMATED GFR IS sq [facility] NOT ACCURATE MEDICAL CENTER CREATININE CLEARANCE IN PREDICTING GLOMERULAR FILTRATION RATE. ESTIMATED GFR IS NOT APPLICABLE FOR DIALYSIS PATIENTS. Specimen Blood Narrative Performed At Fixture Relamper NICOL - AAMIR Villareal [facility] Performing Organization Address City/State/Zipcode Phone Number [address] [address] CENTER Glucose Peritoneal Fluid (11/24/2019 4:17 PM CDT) Glucose, 327 mg/dL [facility] Peritoneal Fluid Comment: INCORPORATED Reference Range approximates that found in serum. Specimen Body Fluid - Ascites (disorder) Narrative Performed At Performing Lab [facility] EZ [facility] [place] [address] [place] [address] Obdulio Griffith MD, PhD, MOON Performing Organization Address City/[facility]/[place] Phone Number [place] [address] [place] [address] Body fluid culture + gram stain (11/24/2019 4:17 PM CDT)Only the most recent of 2 resultswithin the time period is included. Result No growth [facility] Gram Stain Result 3+ WBCs [facility] Gram Stain Result No organisms seen [facility] Specimen Body Fluid - Ascites (disorder) Performing Organization Address City/[facility]/Zipcode Phone Number [address] [address] CENTER SARS-CoV2/RT-PCR (Asymptomatic ONLY) (11/24/2019 9:51 AM CDT)Only the most recent of2 resultswithin the time period is included. SARS-COV2/RT-PCR Negative Not Detected, DELMY ZULETA Negative, See [facility] external report CENTER for linked test SARS-COV-[address] [facility] HERMILORA DELMY ZULETA PERFORMING LAB [facility] Specimen Other - Nasopharyngeal wall structure (b mary anne structure) Narrative Performed At Negative result for this test determines that [facility] SARS-CoV-2 RNA was not present in the [...] the Act. Fact Sheet for Healthcare Providers: https://www.[employer]ash[employer].co/sites/default/files/pro duct/documents/Fact_Sheet_HC_Providers_Hermilo_ RS-CoV-2.pdf Fact Sheet for Healthcare Patients: https://www.[employer].co/sites/default/files/pro duct/documents/Fact_Sheet_Patients_Lyra_SARS-C oV-2.pdf Performing Laboratory: [address] [place] [address] Performing Organization Address City/[facility]/Zipcode Phone Number [address] [address] CENTER Urinalysis w/Microscopic + Reflex to Culture (11/23/2019 4:24 PM CDT) Color, UA Yellow [facility] Clarity, UA Clear [facility] Specific [place], 1.026 1.001 - 1.035 [facility] pH, UA 5.0 5.0 - 8.0 [facility] Protein, UA Negative Negative [facility] Glucose, UA >1000 mg/dL (A) Negative [facility] Ketones, UA Negative Negative [facility] Bilirubin, UA Negative Negative [facility] Blood, UA Negative Negative [facility] Nitrite, UA Negative Negative [facility] Leukocytes, UA Small (A) Negative [facility] Urobilinogen, UA 0.2 0.2 - 1.0 mg/dL [facility] RBC, UA 1 /HPF [facility] WBC, UA 1 /HPF [facility] Mucus Rare [facility] Squam Epithel, UA 1 /HPF [facility] Specimen Source [facility] Specimen Urine Narrative Performed At Fixture Relamper ID - [auto] [facility] Fixture Relamper ID - tech Performing Organization Address City/[facility]/Zipcode Phone Number [address] [address] [place] Blood Culture - Routine (Left Venipuncture) (11/23/2019 3:54 PM CDT) Pathologist Sig nature Result No growth in 5 days [facility] Specimen Blood - Entire left upper arm (body stru cture) Performing Organization Address [facility]/[place] Phone Number [facility] [address] [place] [address] [place] CBC (Hemogram only) (11/19/2019 4:37 AM CDT) Pathologist Sig nature WBC 4.9 3.5 - 10.5 K/L [facility] RBC 3.76 (L) 3.93 - 5.22 M/L [facility] Hemoglobin 9.0 (L) 11.2 - 15.7 GM/DL [facility] Hematocrit 30.4 (L) 34.1 - 44.9 % [facility] MCV 80.9 79.4 - 94.8 fL [facility] MCH 23.9 (L) 25.6 - 32.2 pg [facility] MCHC 29.6 (L) 32.2 - 35.5 GM/DL [facility] RDW 18.0 (H) 11.7 - 14.4 % [facility] Platelets 87 (L) 150 - 450 K/CU MM [facility] MPV 10.5 9.4 - 12.3 fL [facility] nRBC 0 0 - 0 /100 WBC [facility] Specimen Blood Performing Organization Address City/[facility]/Zipcode Phone Number [facility] [address] [place] [address] RFA tumor ablation (11/18/2019 11:01 AM CDT) Specimen Narrative Performed At FINAL REPORT [employer] CT and ultrasound Guided microwave ablat ion [...] ablation was recommended in a tumor board. Tube Draw Helper: Randy Radford MD. Tube Former Operator: Alex Richardson Modality: Ultrasound and CT DOSE [...] the target. At this time, a 4 Lao centesis needle needle was advanced under the [...] was followed by placement of the mi AdiCyteave ablation probe using a right upper quadrant [...] Report Verified Date/Time: 11/21/2019 10:38:16 Reading Location: [place] [address] Angio Body Reading Room Procedure Note Interface, [...] ablation was recommended in a tumor board. Tube Draw Helper: Randy Radford MD. Tube Former Operator: Alex Richardson Modality: Ultrasound and CT DOSE [...] the target. At this time, a 4 Lao centesis needle needle was advanced under the [...] This was followed by placement of the yuki stanley ablation probe using a right upper quadrant [...] Verified Date/Time: 11/21/2019 1 0:38:16 Reading Location: [place] [address] Angio Body Reading Room Performing Organization Address City/State/Zipcode Phone Number [facility] US unspecific guidance interventional (11/18/2019 11:00 AM CDT) Specimen Narrative Performed At FINAL REPORT [facility] Please see the report under accession #[id number]. Thank you. Signed: Randy Radford MD Report Verified Date/Time: 11/21/2019 11:30:50 Reading Location: [facility] [address] Angio Body Reading Room Procedure Note Interface, External Ris In - 11/21/2019 11:32 AM CDT FINAL REPORT Please see the report under accession #[id number]. Thank you. Signed: Randy Radford MD Report Verified Date/Time: 11/21/2019 1 1:30:50 Reading Location: [place] [id number] Angio Body Reading Room Performing Organization Address City/[facility]/[place] Phone Number GE RIS EKG 12 lead (11/18/2019 6:58 AM CDT) Specimen Narrative Performed At Ventricular Rate 77 BPM GE MUSE Atrial Rate 77 BPM P-R Interval 154 ms QRS Duration 92 ms Q-T Interval 416 ms QTC Calculation(Bazett) 470 ms P [place] 80 degrees R [place] 78 degrees T [place] 45 degrees Normal sinus rhythm Possible Anterior infarct 06 Feb 2018 Prolonged QT Abnormal ECG When compared with ECG of 06-FEB-2018 12 :50, QRS axis has shifted from right QT has lengthened Confirmed by MD SEO YOCHAI ([id number]) on 11/21/2019 8:38:28 AM Procedure Note Interface, External Ris In - 11/21/2019 8:38 AM CDT Ventricular Rate 77 BPM Atrial Rate 77 BPM P-R Interval 154 ms QRS Duration 92 ms Q-T Interval 416 ms QTC Calculation(Bazett) 470 ms P [place] 80 degrees R [place] 78 degrees T [place] 45 degrees Normal sinus rhythm Possible Anterior infarct 06 Feb 2018 Prolonged QT Abnormal ECG When compared with ECG of 06-FEB-2018 12 :50, QRS axis has shifted from right QT has lengthened Confirmed by MD SEO YOCHAI ([id number]) on 11/21/2019 8:38:28 AM Performing Organization Address City/State/[place] Phone Number GE MUSE Cytology (11/11/2019 8:21 AM CDT) Pathologist [facility] nature Case Report Medical Cytology Report Case: [id number] [facility]' Authorizing Provider: Peggy Casillas MD Collected: 11/11/2019 08:21 AM HEALTH BC Ordering Location: [facility] Radiology Main Received: 11/15/2019 09:37 AM MEDICAL CENTER Pathologist: Alberto Caba MD Specimen: Peritoneal Fl uid DIAGNOSIS PERITONEAL FLUID (CYTOSPINS): DELMY PICKETT 'S Electronically signed - NEGATIVE FOR MALIGNANCY [facility] by Alberto Caba FEW LYMPHOCYTES PRESENT [facility]ICAL [facility]ENT DEYA High MD on Signing Pathologist Direct Phone Line: 11/15/2019 at 4:58 PM CPT Code(s) 33143 [facility] CLINICAL DATA Ascites, history [facility] SPECIMEN SOURCE PERITONEAL FLUID [facility] GROSS DESCRIPTION 3 mls yellow fluid; 4 cytosp ins (not enough specimen for cell block) [facility] Collected: [facility] Received: [id number] [place] [address] MICROSCOPIC Performed. [facility] STATEMENT OF Satisfactory [facility] Gross assessment [facility] was performed at [facility] Department of [facility] Pathology, [address] [place] [address], Technical component [facility] was performed at [facility] Department of [facility] Pathology, [address] [place] [address], Professional [facility] component was [facility] performed at Department of [facility] Pathology, [address] [place] [address], Specimen Body Fluid - Peritoneal fluid (substance ) Narrative Performed At This result has an attachment that is no t available. Performing Organization Address City/State/Zipcode Phone Number [facility] [address] [place] [phone] CENTER PT/aPTT (10/19/2019 12:04 PM CDT) Pathologist Sig nature Protime 15.2 (H) 11.9 - 14.2 seconds [facility] INR 1.23 <=5.90 [facility] PTT 35.1 22.5 - 36.0 seconds [facility] Specimen Blood Narrative Performed At Effective 08/04/2018: PT Reference Range [facility] Change New: 11.9-14.2 Previous: 11.7-14.7 RECOMMENDED COUMADIN/WARFARIN INR THERAPY RANGES STANDARD DOSE: 2.0-3.0 Includes: PROPHYLAXIS for venous thrombosis, systemic embolization; TREATMENT for venous thrombosis and/or pulmonary embolus. HIGH RISK: Target INR is 2.5-3.5 for patients wiht mechanical heart valves. Performing Organization Address City/State/Zipcode Phone Number [facility] [address] [place] [address] CENTER NM bone scan whole body (10/07/2019 1:53 PM CDT)Only the most recent of2 resultswithin the time period is included. Specimen Narrative Performed At FINAL REPORT [facility] PROCEDURE: BONE SCAN, WHOLE BODY CPT CODE: 77203 INDICATION: Hepatocellular carci noma, pretransplant evaluation for [...] Report Verified Date/Time: 10/07/2019 14:24:47 Reading Location: [address] [place] [address] Reading Room Procedure Note Interface, External Ris In - 10/07/2019 2:26 PM CDT FINAL REPORT PROCEDURE: BONE SCAN, WHOLE BODY CPT CODE: 33379 INDICATION: Hepatocellular carcinom a, pretransplant evaluation for [...] Verified Date/Time: 10/07/2019 1 4:24:47 Reading Location: [address] Reading Room Performing Organization Address City/State/Zipcode Phone Number [facility] NM tumor localization SPECT (08/11/2019 3:37 PM CDT)Only the most recent of2 resultswithin the time period is included. Specimen Narrative Performed At FINAL REPORT [facility] PROCEDURE: TRACER DISTRIB UTION STUDY - SPECT (Bremsstrahlung) CPT CODE: 71642 CLINICAL INDICATION: Hepatocellu lar carcinoma PROTOCOL: 35.5 [...] Report Verified Date/Time: 08/12/2019 16:06:26 Reading Location: [facility] 3rd Wyr P327B Nuc Med Reading Room Procedure Note Interface, External Ris In - 08/12/2019 4:08 PM CDT FINAL REPORT PROCEDURE: TRACER DIS TRIBUTION STUDY - SPECT (Bremsstrahlung) CPT CODE: 31206 CLINICAL INDICATION: Hepatocellular carcinoma PROTOCOL: 35.5 mCi [...] Verified Date/Time: 08/12/2019 1 6:06:26 Reading Location: [address] Nuc Med Reading Room Performing Organization Address City/State/Zipcode Phone Number [facility] [place] Y90 MICROPSHERES THERAPY (08/11/2019 3:36 PM CDT) Specimen Narrative Performed At FINAL REPORT [facility] PROCEDURE: Y-90 microsphere therapy (SIR-Spheres) CPT CODE: 09479 CLINICAL INDICATION: Hepatocellular c arcinoma PROTOCOL: 35.5 mCi of a planned 37 mC i dosage of Y-90 labeled microspheres (SIR-Spheres) was administe red by the nuclear medicine physician to the right lobe of the liver via a hepatic artery catheter placed by the interventional ra diologist. IMPRESSION: Y-90 microsphere therapy Signed: Gerry Hill MD Report Verified Date/Time: 08/11/2019 16:19:17 Reading Location: [facility] 3rd Flr P327B Nuc Med Reading Room Procedure Note Interface, External Ris In - 08/11/2019 4:21 PM CDT FINAL REPORT PROCEDURE: Y-90 microsp here therapy (SIR-Spheres) CPT CODE: 67176 CLINICAL INDICATION: Hepatocellular ca rcinoma PROTOCOL: 35.5 mCi of a planned 37 mCi dosage of Y-90 labeled microspheres (SIR-Spheres) was administe red by the nuclear medicine physician to the right lobe of the liver via a hepatic artery catheter placed by the interventional ra diologist. IMPRESSION: Y-90 microsphere therapy Signed: Gerry Hill MD Report Verified Date/Time: 08/11/2019 1 6:19:17 Reading Location: [address] P327[facility] Reading Room Performing Organization Address City/State/Zipcode Phone Number [facility] IR Visceral Arteriogram (08/11/2019 2:40 PM CDT)Only the most recent of2 resultswithin the time period is included. Specimen Narrative Performed At FINAL REPORT [facility] Procedure: Transarterial radio-embolizat ion of the liver. [...] dictation for the mapping and treat ment. Tube Draw Helper: Randy Radford M.D. Tube Former Operator: Alex Ospina Modality: Sonography and fluoroscopy. DOSE [...] The patient was laid supine on the [facility] dure table. Bilateral groins were prepped [...] fluoroscopic guidance. Over the wire a 5 Lao vascular sheath was placed. The sheath was connected to a he parinized saline drip. Over the wire, a 5 Lao reverse curve catheter was placed. This was [...] was injected by Dr. Hill of nuclear [facility]. The catheter was then advanced into the [...] patient was then brought back to [facility] iography. A universal timeout was [...] was followed by superselective catheterization of [facility] hepatic artery branch point with a coaxial [...] Report Verified Date/Time: 08/11/2019 15:38:16 Reading Location: [facility] P048 Angio Body Reading Room Procedure Note [...] dictation for the map ping and treatment. Tube Draw Helper: Randy Radford M.D. Tube Former Operator: Alex Ospina Modality: Sonography and fluoroscopy. DOSE [...] fluoroscopic guidance. Over the wire a 5 Lao vascular sheath was placed. The sheath was connected to a he parinized saline drip. Over the wire, a 5 Lao reverse curve catheter was placed. This was [...] was injected by Dr. Hill of [facility]. The catheter was then advanced into the [...] Verified Date/Time: 08/11/2019 1 5:38:16 Reading Location: [place] [address] Angio Body Reading Room Performing Organization Address City/State/Zipcode Phone Number [facility] NM tumor localization multiple (08/11/2019 12:40 PM CDT) Specimen Narrative Performed At FINAL REPORT [facility] PROCEDURE: TRACER DISTRIBUTION STUDY, WHOLE BODY with SPECT CPT CODE: 42481, 42567 CLINICAL INDICATION: Hepatocellular c arcinoma PROTOCOL: 2.7 [...] Report Verified Date/Time: 08/11/2019 16:15:18 Reading Location: [address] Reading Room Procedure Note Interface, External Ris In - 08/11/2019 4:17 PM CDT FINAL REPORT PROCEDURE: TRACER DISTRIBUTION STUDY, WHOLE BODY with SPECT CPT CODE: 87226, 60291 CLINICAL INDICATION: Hepatocellular ca rcinoma PROTOCOL: 2.7 [...] Verified Date/Time: 08/11/2019 1 6:15:18 Reading Location: [id number] [facility] Reading Room Performing Organization Address City/State/Zipcode Phone Number [facility] IR Embolization Arterial (08/11/2019 11:26 AM CDT)Only the most recent of2 resultswithin the time period is included. Specimen Narrative Performed At FINAL REPORT [facility] Procedure: Transarterial radio-embolizat ion of the liver. [...] dictation for the mapping and treat ment. Tube Draw Helper: Randy Radford M.D. Tube Former Operator: Alex Ospina Modality: Sonography and fluoroscopy. DOSE [...] fluoroscopic guidance. Over the wire a 5 Lao vascular sheath was placed. The sheath was connected to a he parinized saline drip. Over the wire, a 5 Lao reverse curve catheter was placed. This was [...] injected by Dr. Hill of [facility]. The catheter was then advanced into the [...] The patient was laid supine on the [facility] dure table. Bilateral groins were prepped [...] Report Verified Date/Time: 08/11/2019 15:38:16 Reading Location: [facility] [address] Angio Body Reading Room Procedure Note [...] dictation for the map ping and treatment. Tube Draw Helper: Randy Radford M.D. Tube Former Operator: Alex Ospina Modality: Sonography and fluoroscopy. DOSE [...] The patient was laid supine on the [facility] dure table. Bilateral groins were prepped [...] fluoroscopic guidance. Over the wire a 5 Lao vascular sheath was placed. The sheath was connected to a he parinized saline drip. Over the wire, a 5 Lao reverse curve catheter was placed. This was [...] was injected by Dr. Hill of [facility]. The catheter was then advanced into the [...] patient was then brought back to [facility] iography. A universal timeout was performed prior to starting the procedure. The procedure room personnel used person al protective equipment. The operators used sterile gowns and gloves. The patient was laid supine on the [facility] dure table. Bilateral groins were prepped [...] was followed [facility] with a [...] Verified Date/Time: 08/11/2019 1 5:38:16 Reading Location: [place] [address] Angio Body Reading Room Performing Organization Address City/State/Zipcode Phone Number RIS Bilirubin, direct (08/11/2019 7:36 AM CDT)Only the most recent of2 results within the time period is included. Pathologist Sig nature Bilirubin, Direct 0.3 0.1 - 0.5 mg/dL [facility] Specimen Blood Narrative Performed At Fixture Relamper ID - AAHAMID [facility] Performing Organization Address City/State/Zipcode Phone Number [facility] [address] [place] [address] CENTER POC-Creatinine (05/27/2019 9:55 AM CDT)Only the most recent of2 resultswithin the time period is included. POC-Creatinine 0.8Comment: : 0.6 - 1.3 mg/dL [facility]ED AT [place] [id number] [facility], [id number]: Fixture Relamper/Technici an ID = [id number] for Mee Kowalski POC-EGFR 72 mL/min/1.73M2 [facility] Specimen Blood Performing Organization Address City/State/Zipcode Phone Number [address] abdomen without IV contrast (04/15/2019 1:46 PM PUMP ASSEMBLER) Specimen Narrative Performed At FINAL REPORT [facility] TECHNIQUE: CT of the abdomen WITHOUT int [...] Report Verified Date/Time: 04/15/2019 19:39:35 Reading Location: [facility] B1 C013Y CT Body R eading Room Procedure Note Interface, External Ris In - 04/15/2019 7:41 PM PUMP ASSEMBLER FINAL REPORT TECHNIQUE: CT of the abdomen [...] Verified Date/Time: 04/15/2019 1 9:39:35 Reading Location: [facility] B1 C013Y CT Body R eading Room Performing Organization Address City/State/Zipcode Phone Number GE RIS Insert peripheral IV (04/15/2019 1:11 PM PUMP ASSEMBLER) Narrative Performed At [facility] Willis Ginettejhonny 04/15/2019 1:1 7 PM Interventional Radiology Post Procedu re Note PROCEDURE: TACE INDICATION/ PRE-OP DIAGNOSIS: HCC. POST-OP DIAGNOSIS: Same. IMPLANT: Doxorubicin infused 100mg Oncoz shimon RADIOLOGIST: Dr. Radford STUDIO OPERATIONS ENGINEER IN CHARGE: [facility] EBL: < 5 cc. SPECIMEN: None CONSCIOUS SEDATION: 1 mg Versed, 50 micr ogram Fentanyl intravenously. 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 COMPLICATIONS: None. INSTRUCTIONS: Flat bedrest and restricte d RLE movement for 3 hours, d/c home in 6 hours. *Preliminary Findings Only. Final Report to Follow Willis Dickerson M.D. 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 Explanati on Advance Directives and Living 01/06/2019 12:00 AM Will Power of Inspector Tester Sorter 01/06/2019 12:00 AM Code Status Date Activated Date Inactivated Comments Full Code 01/20/2020 12:12 PM 01/21/2020 4:27 AM This code status was determined by: Patient Full Code 01/13/2020 11:34 AM 01/13/2020 6:03 PM This code status was determined by: Patient Full Code 12/23/2019 11:29 AM 12/23/2019 7:11 PM This code status was determined by: Patient Full Code 12/16/2019 9:50 AM 12/16/2019 12:45 PM This code status was determined by: Patient Full Code 11/18/2019 11:24 AM 11/19/2019 7:23 PM This code status was determined by: Patient
--- OUTSIDE RECORDS SUMMARY | 2020-01-30 10:21 | XMS REPORT | Continuity of Care Document ---
:1955 Author Organization [facility] t Address [address] [place]. [address] [place] [id number] Care Team Providers Name Role Phone Irma Valles Primary Care Physician Mando Robb MD Attending Clinician MANDO ROBB Attending Clinician Unavailable Rohan Mercer RN Attending Clinician Unavailable Paolo Attending Clinician Unavailable Maureen WALLS Attending Clinician Unavailable SAVANA Attending Clinician Unavailable Savana DENG Attending Clinician Elisabet Macias MD Attending Clinician Sunil Monterroso MD Attending Clinician [phone] Felix Attending Clinician Unavailable Praveen Attending Clinician Unavailable Lorena Graves MD Attending Clinician Mary Ann Shahid MD Attending Clinician Unavailable Cesar Attending Clinician Unavailable Jaki Morales Attending Clinician Kvng Clark MD Attending Clinician Vimal RONDON Attending Clinician Unavailable Juan Tavares Attending Clinician Unavailable Helga Gibbs Attending Clinician Unavailable Wu Attending Clinician Unavailable Vitor RONDON Attending Clinician Unavailable Irma Valles Attending Clinician Megan DENG Attending Clinician Donald DENG Attending Clinician Kayla Reyes Attending Clinician Unavailable ADI TURPIN Attending Clinician Unavailable Reynold Ellison MD Attending Clinician Lalo Antony MD Attending Clinician CORNELIO LU Attending Clinician Unavailable DARREL MANNING Attending Clinician Unavailable LETHA MEADOWS Attending Clinician Unavailable MANDO ROBB Admitting Clinician Unavailable SUNIL MONTERROSO Admitting Clinician Unavailable ADI TURPIN Admitting Clinician Unavailable DARREL MANNING Admitting Clinician Unavailable Payers Payer Name Policy Type Policy Number Effective Date Expiration Date Moriah trimble AETNA - MGD [id number] [address] [facility] CAREAETNA O 00:00:00 - Medical POS Center [id number] /[id number] /POS Problems Condition Condition Condition Status Onset Resolution Last Treating Co mments Source Name Details Category Date Date Treatment Clinician Date Spontaneou Spontaneou Disease Active [facility]- [facility] - bacterial bacterial 00:00: Medi pablito peritoniti peritoniti 00 Ce nter s s Peritoniti Peritoniti Disease Active 2019- [facility] - 00:00: Medical 00 Center Hepatocell Hepatocell Disease Active 2019- [facility] ular ular 9-12 [facility] - carcinoma carcinoma 00:00: Medi pablito 00 Center Hepatocell Hepatocell Disease Active [facility] ular ular 5-22 [facility] - carcinoma carcinoma 00:00: Medi pablito 00 Center Type II Type II Disease Active 2018- [facility] diabetes diabetes 5-22 [facility] - mellitus mellitus 00:00: Medica l 00 Center Pre-transp Pre-transp Disease Active Last [facility] lant lant 3-20 Assessmen Brandi - evaluation evaluation 00:00: t & Plan: Medical for for 00 She is an Center chronic chronic acceptabl liver liver e disease disease candidate for liver transplan t pending further imaging/t esting and official review at [facility]. Liver Liver Disease Active Last [facility] lesion lesion 3-20 [facility] - 00:00: t & Plan: Medical 00 1.6cm and Center 1.0 cm lesion seen on MRI 03/2018 consisten t with features of HCC confirmed upon radiologi pablito conferenc e review. Hepatolog y and oncology with coordinat e care/connie tment. Cancer Cancer Disease Active [facility] screening screening 03-17 Assessseth connellyes - 00:00: t & Plan: Medical 00 Cirrhosis Center , regardles s of etiology, is a risk factor for developme nt of hepatocel lular carcinoma with an annual incidence of 1.5-4.5%. We recommend surveilla nce for HCC with abdominal imaging and alphafeto protein every 6 months. MRI and AFP are ordered . Chronic Chronic Disease Active Last [facility] St hepatitis hepatitis 03-11 Assessseth connellyes - C without C without 00:00: t & Plan: M edical hepatic hepatic 00 Continue Center coma coma follow up with hepatolog y for treatment options. Portal Portal Disease Active [facility] St hypertensi hypertensi 03-11 Assessmen [facility] - on on 00:00: t & Plan: Medical 00 Portal Center hypertens ion with evidence by hypersple nism and ascites. Right Right Disease Active [facility] St upper upper 03-11 Assessmen [facility] - quadrant quadrant 00:00: t & Plan: Med ical abdominal abdominal [address] pain pain etiology. History of gallstone but no cholecyst itis. Possible etiology is chronic pancreati tis. We will get HIDA scan to assess for functiona l gallbladd er disorder. Immunity Immunity Disease Active Last [facility] S t status status [facility] - testing testing 00:00: t & Plan: Medic al 00 Serologic Center al tests will be completed to determine the presence of immunity to hepatitis A and B. If the patient does not have adequate immunity, we would recommend administr ation of appropria te vaccinati on as per CDC guideline s by the primary care provider. 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 First diagnosis was in 2011. Other Other Disease Active [facility] ascites ascites 03-11 Assessmen [facility] - 00:00: [...] Date Stop Date Source Natural father [facility] Natural father Heart disease [facility] Natural mother Heart disease [facility] Social History Social Habit Start Date Stop Date Quantity Comments Source History [facility] - Alcohol Std Drinks Medica l Center History [facility] St kes - Alcohol Binge Medical [facility] ter Sex Assigned At F [facility] Exposure to Yes [facility] - SARS-CoV-2 (event) Medica [facility] Tobacco use and 2020-01-27 2020-01-27 Never used [facility] - exposure 00:00:00 00:00:00 [facility] Alcohol intake 2020-01-27 2020-01-27 [facility] 00:00:00 non-drinker of Medical Ce nter alcohol (finding) Alcohol Comment 2019-10-28 2019-10-28 NONE SINCE [facility] St Rosa kes - 00:00:00 00:00:[facility] History SDOH 2018-08-30 2018-08-[address] [facility] - Alcohol Frequency 00:00:00 00:00:00 Medical Center History of tobacco 2018-05-29 [facility] sm[facility] - use 00[facility] [place] Smoking Status Start Date Stop Date Source Former smoker 2020-01-27 00:00:00 2020-01-27 00:00:00 [facility] Medications Ordered Filled Start Stop Current Ordering Indication Dosage Frequency Signature Comments Components Source Medication Medication Date Date Medication? Clinician (SIG) Name Name shahriaropra 2019-03 Yes Cancer 20mg QD Take [address] m oxalate 03-21 screening by mouth L ukes - (LEXAPRO) 08:01: daily. Medica l 20 MG 26 Center tablet ursodiol 2019-03 Yes Cancer 300mg QD Take [address] (ACTIGALL) 03-21 screening mg by Mahnaz es - 300 mg 08:01: mouth Medical capsule 26 daily . Center omeprazole 2019-03 Yes Cancer 40mg QD Take [address] (PRILOSEC) 03-21 screening by mouth [facility] - 40 MG 08:01: daily. Medical capsule 26 Center colestipol 2019-03 Yes 5g Take [address] (COLESTID) 03-21 by mouth [facility] - 5 gram 08:01: as needed Medica l granules 26 (FOR Center ITCHING). empaglifloz 2019-03 Yes 10mg QD Take [address] in 03-21 by mouth [facility]ukes - (JARDIANCE) 08:01: daily. Medi pablito 10 mg 26 Center tablet levothyroxi 2019-03 Yes 137ug Take [address] ne 1-13 mcg by [facility]ukes - (SYNTHROID, 08:01: mouth Medic al LEVOTHROID) 26 Every Center 137 MCG morning on tablet an empty stomach. insulin 2019-03 Yes 20U QD Inject 20 [facility] aspart 1-13 Units [facility]ukes - protamine-i 08:01: subcutaneo Medical nsulin 26 usly every Center aspart morning. (NOVOLOG MIX 70-30 U-100 INSULN) 100 unit/mL (70-30) Soln injection insulin 2019-03 Yes 14U QD Inject 14 [facility] aspart 1-13 Units [facility]ukes - protamine-i 08:01: subcutaneo Medical nsulin 26 usly every Center aspart evening. (NOVOLOG MIX 70/30) 100 unit/mL (70-30) Soln injection cholecalcif 2019-03 Yes 5000U QD Take 5,[address] markus, 1-13 Units by [facility]ukes - vitamin D3, 08:01: mouth Medic al (VITAMIN D3 26 daily. Center ORAL) Missing or 2019-03 Yes 1{tbl} Q.5D Take [address] Non-Formula -13 tablet by Mahnaz es - ry 08:01: mouth 2 Medical Medication 26 (two) Center times daily. carvedilol 2019-03 Yes 3.125mg QD Take 3.[address] (COREG) 1-11 mg by [facility]ukes - 3.125 MG 09:47: mouth Medical tablet 11 daily . Center melatonin 3 2019-03 Yes QD Take by [facility] mg Tab 1-11 mouth [facility]ukes - tablet 09:47: nightly. Medical 11 Center Missing or 2019-03 Yes 1{tbl} QD Take [address] Non-Formula 1-11 tablet by Mahnaz es - ry 09:47: mouth Medical Medication 11 daily. Center lidocaine 2019- No 2{patch Q24H Place [address] (LIDODERM) 9-20 10-20 } patches [facility] - 5 % patch 00:00: 23:59 onto the Med ical 00 :00 skin daily Center for 30 days Remove & Discard patch within 12 hours or as directed by MD. traMADoL Yes Cancer 50mg Take 1 [facility] (ULTRAM) 50 9-12 screening tablet (50 [facility] - mg tablet 00:00: mg total) Med ical 00 by mouth Center as needed for Pain. HYDROcodone Yes 5{tbl} Take 5-[address] -acetaminop 9-12 tablets by Rosa owens (NORCO 00:00: mouth as Med ical 5-325) 00 needed. Center 5-325 mg per tablet levoFLOXaci 2019- No 500mg QD Take [address] n 9-12 09-20 tablet [facility]ukes - (LEVAQUIN) 00:00: 00:00 (500 mg Med ical 500 MG 00 :00 total) by Center tablet mouth daily for 4 days. HYDROcodone 2019- No 1{tbl} Take [address] -acetaminop 9-12 09-20 tablet by Rosa owens (NORCO 00:00: 00:00 mouth Medic al 5-325) 00 :00 every 6 Center 5-325 mg (six) per tablet hours as needed for Pain for up to 4 days. Max Daily Amount: 4 tablets insulin 2019- No 20U Inject [address] lispro 9-11 09-11 Units [facility]ukes - protamin-li 07:05: 00:00 subcutaneo Medical spro 48 :00 usly once Center (HUMALOG in 75-25) 100 morning. unit/mL (75-25) InPn injection insulin 2019- No 14U QD Inject [address] lispro 11-17-11 Units [facility]ukes - protamin-li 07:05: 00:00 subcutaneo Medical spro 21 :00 usly Center (HUMALOG [...] Center as needed for Pain. spironolact 2020- No Other 200mg QD Take [address] one 10-23 ascites tablets [facility]ukes - (ALDACTONE) 00:00: 23:59 (200 mg Me dical 100 MG 00 :00 total) by Center tablet mouth daily. furosemide 2020- No Other 80mg QD Take 2 [facility] [...] Take [address] (ULTRAM) 50 10-18- screening by mouth [facility]ukes - mg tablet 12:06: 00:00 as needed Me dical 15 :00 for Pain. Center insulin 2019- No 20U Inject [address] lispro 10-18-12 Units [facility]ukes - protamin/li 10:57: 00:[facility] 51 :00 usly daily Center (HUMALOG with MIX 75-25 breakfast SUBQ) . insulin 2019- No 18U QD Inject [address] lispro 10-18-12 Units [facility]ukes - protamin-li 10:57: 00[facility]ro 51 :00 [facility] Center (HUMALOG nightly. 75-25) 100 unit/mL (75-25) InPn injection furosemide 2019- No Other 80mg QD Take [address] (LASIX) 40 10-18-17 ascites tablets Rosa kes - MG tablet 00:00: 00:00 (80 mg Medic al 00 :00 total) by Center mouth daily. spironolact 2019- No Other 200mg QD Take [address] one 10-1817 ascites tablets [facility]ukes - (ALDACTONE) 00:00: 00:00 [...] Q.5D Take [address] (LASIX) 40 09-15-12 ascites tablet (40 [facility]ukes - MG tablet 00:00: 00:00 mg total) Me dical 00 :00 by mouth 2 Center (two) times daily. spironolact 2019- No Other 100mg QD Take [address] one 09-15-12 ascites tablets [facility]ukes - (ALDACTONE) 00:00: 00:00 (100 mg Me dical 50 MG 00 :00 total) by Center tablet mouth daily. OXcarbazepi Yes 150mg Q.5D Take [address] ne 5-21 mg by [facility]ukes - (TRILEPTAL) 00:00: mouth 2 Med ical 150 MG 00 (two) Center tablet times daily 1 tab in AM2 tabs in PM. topiramate 2018-03- No TAKE [address] (TOPAMAX) 04-19-11 TABLET BY Luke s - 50 MG 00:00: 00:00 MOUTH Medical tablet 00 :00 TWICE A Center DAY IF TOLERATED furosemide No Peripheral 40mg QD Take [address] (LASIX) 40 - 05-23 edema tablet (40 L ukes - MG tablet 00:00: 23:59 mg total) Me dical 00 :00 by mouth Center daily. spironolact 2020- No Peripheral 100mg QD Take [address] one 5- 05-21 edema tablets [facility]ukes - (ALDACTONE) 00:00: 23:59 (100 mg Me dical 50 MG 00 :00 total) by Center tablet mouth daily. lipase-prot 2017-03 Yes 1{capsu Q.5D Take [address] ease-amylas 2- le} capsule by Rosa cadena (ZENPEP) 00:00: mouth 2 Medi pablito 40,000-126, 00 (two) Center 000- times 168,000 daily . unit CpDR gabapentin 2017-03 2020- No 600mg Q.5D Take [address] (NEURONTIN) 1 08-12 mg by Brandi - 600 MG 00:00: 00:00 mouth 2 Medical tablet 00 :00 (two) Center times daily . Vital Signs Vital Name Observation Time Observation Value Comments Source Systolic blood 2020-01-27 09:32:00 115 mm[Hg] [facility] pressure [facility] Diastolic blood 2020-01-27 09:32:00 54 mm[Hg] [facility] S [facility] Heart rate 2020-01-27 09:32:00 72 /min [facility] Body temperature 2020-01-27 09:32:00 36.61 Regine [facility] Respiratory rate 2020-01-27 09:32:00 17 /min [facility] Oxygen saturation 2020-01-27 09:32:00 100 /min [facility] in Arterial blood Medical Ce nter by Pulse oximetry Body height 2020-01-18 09:11:00 162.6 cm [facility] Body weight 2020-01-18 09:11:00 90.81 kg patient has a [facility] walking boot on Medical Cent er BMI 2020-01-18 09:11:00 34.35 kg/m2 [facility] Procedures Procedure Date / Time Performing Clinician Source Performed US PARACENTESIS 2020-01-27 09:19:00 Peggy Robb [facility] BODY FLUID CELL COUNT WITH 2020-01-27 08:49:00 Peggy Robb [facility] US PARACENTESIS 2020-01-20 09:39:00 Peggy Robb [facility] BODY FLUID CELL COUNT WITH 2020-01-20 08:45:00 Peggy Robb [facility] ALPHA FETOPROTEIN (AFP), 2020-01-18 10:17:00 Peggy Robb [facility] TUMOR MARKER [facility] BASIC METABOLIC PANEL (7) 2020-01-18 10:17:00 Peggy Robb [facility] HEPATIC FUNCTION PANEL 2020-01-18 10:17:00 Peggy Robb [facility] PROTHROMBIN TIME/INR 2020-01-18 10:17:00 Peggy Robb [facility] CBC W/PLT COUNT & AUTO 2020-01-18 10:17:00 Peggy Robb [facility] US PARACENTESIS 2020-01-13 11:12:00 Peggy Robb [facility] BODY FLUID CELL COUNT WITH 2020-01-13 10:53:00 Peggy Robb [facility] MR ABDOMEN WITH & WITHOUT 2020-01-06 13:45:00 Peggy Robb [facility] IV CONTRAST [facility] Center CT CHEST WITHOUT IV 2020-01-06 12:40:00 Peggy Robb [facility] CONTRAST [facility] US PARACENTESIS 2020-01-06 11:20:00 Peggy Robb [facility] BODY FLUID CELL COUNT WITH 2020-01-06 10:14:00 Peggy Robb [facility] US PARACENTESIS 2019-12-30 09:49:00 Peggy Robb [facility] BODY FLUID CELL COUNT WITH 2019-12-30 09:13:00 Peggy Robb [facility] PROTHROMBIN TIME/INR 2019-12-30 07:58:[address] [facility] APTT 2019-12-30 07:58:00 [facility] CBC W/PLT COUNT & AUTO 2019-12-30 07:58:00 Gaurangcourtney ElaineFormerly [facility] US PARACENTESIS 2019-12-23 09:47:00 Peggy Robb [facility] BODY FLUID CELL COUNT WITH 2019-12-23 09:20:00 Peggy Robb [facility] US PARACENTESIS 2019-12-16 10:03:00 Peggy Robb [facility] BODY FLUID CELL COUNT WITH 2019-12-16 09:49:00 Peggy Robb [facility] US PARACENTESIS 2019-12-09 09:34:00 Peggy Robb [facility] BODY FLUID CELL COUNT WITH 2019-12-09 09:09:00 Peggy Robb [facility] POCT-GLUCOSE METER 2019-11-27 11:51:00 [facility] 2019-11-27 07:37:00 Gilberto [facility] POCT-GLUCOSE METER 2019-11-26 21:30:00 Gilberto [facility] POCT-GLUCOSE METER 2019-11-26 16:14:00 Gilberto [facility] POCT-GLUCOSE METER 2019-11-26 10:52:00 Gilberto [facility] POCT-GLUCOSE METER 2019-11-26 08:00:00 Gilberto [facility] COMPREHENSIVE METABOLIC 2019-11-26 04:32:00 [facility]R 2019-11-26 04:32:00 Timothy Presley [facility] CBC W/PLT COUNT & AUTO 2019-11-26 04:32:00 Timothy Presley I [facility] POCT-GLUCOSE METER 2019-11-25 22:31:00 Gilberto [facility] POCT-GLUCOSE METER 2019-11-25 16:38:00 Gilberto [facility] POCT-GLUCOSE METER 2019-11-25 11:44:00 Gilberto [facility] POCT-GLUCOSE METER 2019-11-25 08:26:00 Gilberto [facility] COMPREHENSIVE METABOLIC 2019-11-25 04:52:00 [facility] PO[facility]SE METER 2019-11-24 20:38:00 Gilberto [facility] POCT-GLUCOSE METER 2019-11-24 17:25:00 Gilberto [facility] US PARACENTESIS 2019-11-24 16:37:00 Robin [facility] BODY FLUID CELL COUNT WITH 2019-11-24 16:28:00 Robin Carreno [facility] GLUCOSE PERITONEAL FLUID 2019-11-24 16:17:00 Naty Carreno [facility] BODY FLUID CULTURE + GRAM 2019-11-24 16:17:00 Max Carreno [facility] PROTHROMBIN TIME/INR 2019-11-24 09:54:00 Gilberto [facility] SARS-COV2/RT-PCR ([facility] & 2019-11-24 09:51:00 Gilberto, Aidan [facility] - REF LABS) [facility] POCT-GLUCOSE METER 2019-11-24 07:36:00 Gilberto Aidan [facility] COMPREHENSIVE METABOLIC 2019-11-24 06:08:00 Aidan Macias [facility] PANEL [facility] POCT-GLUCOSE METER 2019-11-23 23:45:00 Gilberto Parkernemesio [facility] POCT-GLUCOSE METER 2019-11-23 20:13:00 [facility] URINALYSIS W/ REFLEX URINE 2019-11-23 16:24:00 Robin Carreno [facility] METABOLIC 2019-11-23 15:55:00 Aidan Macias [facility] CBC W/PLT COUNT & AUTO 2019-11-23 15:55:[address] [facility] - DIFFERENTIAL [facility] BLOOD CULTURE 2019-11-23 15:54:00 Robin Carreno [facility] BODY FLUID CELL COUNT WITH 2019-11-22 17:45:00 Peggy Robb [facility] BODY FLUID CULTURE + GRAM 2019-11-22 17:45:00 Nataly Macias i [facility] STAIN [facility] US PARACENTESIS 2019-11-22 17:30:00 Peggy Robb [facility] POCT-GLUCOSE METER 2019-11-19 16:44:00 Kadi Wright [facility] POCT-GLUCOSE METER 2019-11-19 11:14:00 Savana [facility] POCT-GLUCOSE METER 2019-11-19 07:44:00 Savana [facility] CBC (HEMOGRAM ONLY) 2019-11-19 04:37:00 Kadi Wright [facility] COMPREHENSIVE METABOLIC 2019-11-19 04:37:[address] [facility] POCT-GLUCOSE METER 2019-11-18 22:35:00 Savana [facility] POCT-GLUCOSE METER 2019-11-18 18:02:00 Savana [facility] POCT-GLUCOSE METER 2019-11-18 11:23:00 Peggy Robb [facility] CT RFA TUMOR ABLATION 2019-11-18 11:01:00 Peggy Robb [facility] US UNSPECIFIC GUIDANCE 2019-11-18 11:00:00 Randy Radford [facility] INTERVENTIONAL [facility] PROCEDURE DONE OUTSIDE OR 2019-11-18 08:00:00 Cesar, Surgeon [facility] PROTHROMBIN TIME/INR 2019-11-18 07:27:00 Joellen Cuellar [facility] APTT 2019-11-18 07:27:00 Joellen Cuellar [facility] BASIC METABOLIC PANEL (7) 2019-11-18 07:27:00 Joellen Cuellar [facility] CBC W/PLT COUNT & AUTO 2019-11-18 07:27:00 [facility] ECG 12-LEAD 2019-11-18 06:58:05 Unknown, Hl7 Doctor [facility] SARS-COV2/RT-PCR ([facility] & 2019-11-15 10:04:00 Peggy Robb [facility] - REF LABS) [facility] [place] US PARACENTESIS 2019-11-11 09:35:00 Peggy Robb [facility] BODY FLUID CELL COUNT WITH 2019-11-11 08:44:00 Peggy Robb [facility] CYTOLOGY 2019-11-11 08:21:00 Peggy Robb [facility] US PARACENTESIS 2019-11-01 09:45:00 Peggy Robb [facility] BODY FLUID CELL COUNT WITH 2019-11-01 09:41:00 Peggy Robb [facility] BODY FLUID CELL COUNT WITH 2019-10-19 16:13:00 Peggy Robb [facility] US PARACENTESIS 2019-10-19 15:51:00 Peggy Robb [facility] PT/APTT 2019-10-19 12:04:00 Peggy Robb [facility] CBC W/PLT COUNT & AUTO 2019-10-19 12:04:00 Peggy Robb [facility] NM BONE SCAN WHOLE BODY 2019-10-07 13:53:00 Peggy Robb [facility] ALPHA FETOPROTEIN (AFP), 2019-10-07 12:17:00 Peggy Robb [facility] TUMOR MARKER [facility] BASIC METABOLIC PANEL (7) 2019-10-07 12:17:00 Peggy Robb [facility] HEPATIC FUNCTION PANEL 2019-10-07 12:17:00 Peggy Robb [facility] CBC W/PLT COUNT & AUTO 2019-10-07 12:17:00 Peggy Robb [facility] MR ABDOMEN WITH & WITHOUT 2019-10-07 11:35:00 Peggy Robb [facility] IV CONTRAST [facility] Center CT CHEST WITHOUT IV 2019-10-07 10:47:[address] [facility] NM TUMOR LOCALIZATION 2019-08-11 15:37:00 Peggy Robb [facility] NM Y90 MICROSPHERES 2019-08-11 15:36:00 Peggy Robb [facility] THERAPY [facility] IR VISCERAL ARTERIOGRAM 2019-08-11 14:40:00 Peggy Robb [facility] NM TUMOR LOCALIZATION 2019-08-11 12:40:00 Peggy Robb [facility] IR EMBOLIZATION ARTERIAL 2019-08-11 11:26:00 Peggy Robb [facility] PROTHROMBIN TIME/INR 2019-08-11 07:36:00 Joellen Cuellar [facility] APTT 2019-08-11 07:36:00 Joellen Cuellar [facility] COMPREHENSIVE METABOLIC 2019-08-11 07:36:00 Joellen Cuellar [facility] BILIRUBIN, DIRECT 2019-08-11 07:36:00 Joellen Cuellar [facility] CBC W/PLT COUNT & AUTO 2019-08-11 07:36:00 Joellen Cuellar [facility] NM TUMOR LOCALIZATION 2019-07-12 17:46:00 Peggy Robb [facility] IR VISCERAL ARTERIOGRAM 2019-07-12 16:00:00 Peggy Robb [facility] PROTHROMBIN TIME/INR 2019-07-12 09:35:00 Joellen Cuellar [facility] APTT 2019-07-12 09:35:00 AlaJoellen sadler [facility] COMPREHENSIVE METABOLIC 2019-07-12 09:35:00 Joellen Cuellar [facility] BILIRUBIN, DIRECT 2019-07-12 09:35:00 Joellen Cuellar [facility] CBC W/PLT COUNT & AUTO 2019-07-12 09:35:00 Joellen Cuellar [facility] ALPHA FETOPROTEIN (AFP), 2019-05-27 11:23:00 Peggy Robb [facility] BASIC METABOLIC PANEL (7) 2019-05-27 11:23:00 Peggy Robb [facility] HEPATIC FUNCTION PANEL 2019-05-27 11:23:00 Peggy Robb [facility] PROTHROMBIN TIME/INR 2019-05-27 11:23:00 Peggy Robb [facility] CBC W/PLT COUNT & AUTO 2019-05-27 11:23:00 Peggy Robb [facility] CT CHEST WITHOUT IV 2019-05-27 11:00:[address] [facility] MR ABDOMEN WITH & WITHOUT 2019-05-27 10:23:00 Peggy Robb [facility] POCT-CREATININE 2019-05-27 09:55:00 Peggy Robb [facility] CT ABDOMEN WITHOUT IV 2019-04-15 13:46:[address] [facility] IR EMBOLIZATION ARTERIAL 2019-04-15 13:21:00 Peggy Robb [facility] INSERT PERIPHERAL IV 2019-04-15 13:11:01 [facility] PROTHROMBIN TIME/INR 2019-04-15 08:45:00 [facility] APTT 2019-04-15 08:45:00 [facility] COMPREHENSIVE METABOLIC 2019-04-15 08:45:00 [facility] CBC W/PLT COUNT & AUTO 2019-04-15 08:45:00 [facility] CT CHEST WITHOUT IV 2019-02-23 11:45:[address] [facility] NM BONE SCAN WHOLE BODY 2019-02-11 14:11:00 Peggy Robb [facility] MR ABDOMEN WITH & WITHOUT 2019-02-11 11:42:00 Peggy Robb [facility] POCT-CREATININE 2019-02-11 10:51:00 Peggy Robb [facility] ALPHA FETOPROTEIN (AFP), 2019-02-11 10:25:00 Peggy Robb [facility] TUMOR MARKER [facility] BASIC METABOLIC PANEL (7) 2019-02-11 10:25:00 Peggy Robb az [facility] HEPATIC FUNCTION PANEL 2019-02-11 10:25:00 Peggy Robb [facility] PROTHROMBIN TIME/INR 2019-02-11 10:25:00 Peggy Robb [facility] CBC W/PLT COUNT & AUTO 2019-02-11 10:25:00 Peggy Robb [facility] DIFFERENTIAL [facility] Plan of Care Planned Activity Planned Date Details Comments Source Future Scheduled 2020-05-[address] [facility] - Test 00:00:00 malignant neoplasm of [facility] breast (procedure) [code = 365260803] Future Scheduled 2020-04-29 Urine screening for [facility] - Test 00:00:00 protein (procedure) [facility] [code = 007752323] Future Scheduled 2019-11-08 INFLUENZA VACCINE (#1) [facility] Test 00:00:00 [code = INFLUENZA Medical Ce nter VACCINE (#1)] Future Scheduled 2018 PNEUMOCOCCAL 65+ YRS [facility] - Test 00:00:00 (1 of 1 - Medical Center [id number] PCV13) [code = PNEUMOCOCCAL 65+ YRS (1 of - QJJY71_Nfynlgy PCV13)] Future Scheduled 2018-08-[address] [facility] - Test 00:00:00 measurement Medical Center (procedure) [code = 39665494] Future Scheduled 1963-10-19 DIABETIC EYE EXAM [facility] - Test 00:00:00 [code = DIABETIC EYE Medical Center EXAM] Future Scheduled 1963-10-[address] [facility] - Test 00:00:00 examination Medical Center (regime/therapy) [code = 170166713] Future Scheduled [address] [facility] - Test 00:00:00 malignant neoplasm of [facility] colon (procedure) [code = 500172530] Encounters Start End Encounter Admission Attending Care Care Encounter Source Date/Time Date/Time Type Type Clinicians Facility Department ID 2019-05-19 2019-05-19 FABIAN Rincon 1.2.840.114 [id number] 08:32:11 10:27:15 Visit Zack Herediar 350.1.13.21 0.2.7.2.686 [id number] 2019-04-29 2019-04-29 Office RAIZA Bennett 1.2.840.114 [id number] 09:48:52 10:51:32 Visit Kiara AMBULATOR 350.1.13.21 Y 0.2.7.2.686 [id number] 2018-12-24 2018-12-24 Office RAIZA Bennett 1.2.840.114 [id number] 07:55:55 09:05:32 Visit Kiara AMBULATOR 350.1.13.21 Y 0.2.7.2.686 [id number] 2018-11-03 2018-11-03 Office RAIZA Ellison 1.2.840.114 [id number] 11:59:08 12:29:08 Visit Evan AMBULATOR 350.1.13.21 Reynold Y 0.2.7.2.686 [id number] 2018-11-03 2018-11-03 Office RAIZA Antony 1.2.840.114 [id number] 21 11:04:33 11:46:04 Visit Jensen AMBULATOR 350.1.13.21 Lalo Y 0.2.7.2.686 [id number] Results Test Description Test Time Test Comments Results Result [facility] e Comments U/S, PARACENTESIS 2020-01-09 Referring: 0 Najma 18:28:00 MeahAdminister 200 mL of albumin 25% [facility] (50 grams) IV x1 - MEDICAL after paracentesis CENTERName: if 3 or more GERARDO, BETH liters YAAKOV : removed.Send 1955 ascitic fluid for Sex: cell count and F differential.Labs to be ordered:->Other FINAL (please add REPORT PATIENT ID: comment)cell count [id number] and diffReason for Ultrasound guided Exam:->HCC, paracentesis ASCITIS, CIRRHOSIS Clinical History: Ascites. Sedation: None. Forge Heater: Elaine Blake PA-C Supervising Physician: Nani Clark MD Cold Meat Chef: None. Estimated Blood Loss: < 1 mL. [...] anesthesia was achieved with lidocaine, a 5 Italian one-step catheter was advanced into the peritoneal cavity under ultrasound guidance. After completion of drainage, the catheter was removed. There was no evidence of complication. Impression:Success ful ultrasound guided paracentesis. Signed: Nani Clark MDReport Verified Date/Time: 01/27/2020 18:28:37 Reading Location: [address] Ultrasound Reading Room Ultrasound 2020-01-2 Interface, [facility] PARACENTESIS [address] [facility] - 18:28:00 01/27/2020 6:30 Medical PM CSTFINAL REPORT Center Ultrasound guided paracentesis Clinical History: Ascites. Sedation: None. Forge Heater: Elaine Blake PA-C Supervising Physician: Nani Clark MD Cold Meat Chef: None. Estimated Blood Loss: < 1 mL. [...] anesthesia was achieved with lidocaine, a 5 Italian one-step catheter was advanced into the peritoneal cavity under ultrasound guidance. After completion of drainage, the catheter was removed. There was no evidence of complication. Impression:Success ful ultrasound guided paracentesis. Signed: Nani Clarkort Verified Date/Time: 01/27/2020 18:28:37 Reading Location: [address] Ultrasound Reading Room Body fluid cell count with differential 2020-01-27 15:27:00 Test Item Value Reference Range Interpretation Comme nts Appearance (test code = 9335-1) Clear Clear Color (test code = 6824-7) Yellow Colorless, Straw A RBCs (test code = 42925-0) 202 <=1 /cu mm H Adjusted WBC Count (test code = 62938-6) 74 <=5 /cu mm H Lining Cells (test code = 76877-8) 2 <=1 /cu mm H % Segs (test code = 82988-8) 29 % % Lymphs (test code = 60614-7) 48 % % Monos (test code = 94416-0) 23 % % Eos (test code = 93764-3) 0 % % Baso (test code = 26138-6) 0 % Container Body Fluid (test code = 2873) Sterile Vial Lab Interpretation (test code = 23948-7) [facility] WITH [id number] 15:27:00 Test Item Value Reference Range Interpretation Comments APPEARANCE FLUID (BEAKER) (test Clear Clear code = 510) COLOR FLUID (BEAKER) (test code Yellow Colorless, Straw A = 511) RBC FLUID (BEAKER) (test code = 202 /cu mm <=1 H 513) ADJUSTED WBC FLUID (BEAKER) 74 /cu mm <=5 H (test code = 1691) LINING CELLS (BEAKER) (test 2 /cu mm <=1 H code = 1590) NEUTROPHILS FLUID (BEAKER) 29 % (test code = 1656) LYMPHS FLUID (BEAKER) (test 48 % code = 488) MONO/MACROPHAGE FLUID (BEAKER) 23 % (test code = 489) EOSINOPHILS FLUID (BEAKER) 0 % (test code = 491) BASO FLUID (BEAKER) (test code 0 % = 492) CONTAINER BODY FLUID (BEAKER) Sterile Vial (test code = 2873) U/S, [id number] 19:10:00Referring: Dr. Najma Sultanainister 200 mL of albumin 25% (50 grams) IV x1 after paracentesis if 3 or more liters removed.Send ascitic fluid for cell count and differential.Labs to be ordered:->Other (please add comment)cell count and diffReason for Exam:- >HCC, ASCITIS, [facility]IS [facility] 1955 Sex: FFINAL REPORT Ultrasound guided paracentesis. Clinical History: As cites. Sedation: None. Forge Heater: Joellen Cuellar PA-C Cold Meat Chef: None. Estimated Blood Loss: < 1 cc. Specimen: 6500 cc of clear yellow fluid, samples sent [...] was achieved with 2% lidocaine, a 5 Italian one-step catheter was advanced into the peritoneal cavity under ultrasound guidance. After completion of drainage, the catheter was removed. There was no evidence of complication. Impression:Successful ultrasound guided paracentesis. Signed: Roger Manning MDReport Verified Date/Time:01/20/2020 19:10:27 Reading Location: [facility] P006J Ultrasound Reading Room Electronically signedby: ROGER MANNING MD on 01/20/2020 07:10 PMBODY FLUID CELL COUNT WITH [id number] 14:32:00 Test Item Value Reference Range Interpretation Comments APPEARANCE FLUID (BEAKER) (test Cloudy Clear A code = 510) COLOR FLUID (BEAKER) (test code Yellow Colorless, Straw A = 511) RBC FLUID (BEAKER) (test code = 5000 /cu mm <=1 H 513) ADJUSTED WBC FLUID (BEAKER) 98 /cu mm <=5 H (test code = 1691) LINING CELLS (BEAKER) (test code 33 /cu mm <=1 H = 1590) NEUTROPHILS FLUID (BEAKER) (test 38 % code = 1656) LYMPHS FLUID (BEAKER) (test code 21 % = 488) MONO/MACROPHAGE FLUID (BEAKER) 41 % (test code = 489) EOSINOPHILS FLUID (BEAKER) (test 0 % code = 491) BASO FLUID (BEAKER) (test code = 0 % 492) CONTAINER BODY FLUID (BEAKER) Sterile Cup (test code = 2873) Alpha fetoprotein (AFP), tumor [id number] 12:12:00 Test Item Value Reference Range Interpretation Comments Alpha-Fetoprotein (test 4.8 ng/mL <10.0 code = 1834-1) JEFF (test code = JEFF) Belt Operator ID - ROSAFIAG Lab Interpretation (test Normal code = 21224-6) [facility] TUMOR [id number] 12:12:00 Test Item Value Reference Range Interpretation Comments ALPHA-FETOPROTEIN (BEAKER) (test 4.8 ng/mL <10.0 code = 1094) Belt Operator ID - DANAGCBC with platelet count + automated [id number] 11:55:00 Test Item Value Reference Range Interpretation Comments WBC (test code = 6690-2) 4.7 3.5- 10.5 K/L RBC (test code = 789-8) 3.45 3.93- 5.22 M/L L MCHC (test code = 786-4) 31.0 32.2- 35.5 GM/DL L Hematocrit (test code = 4544-3) 29.7 % 34.1-44.9 L MCV (test code = 787-2) 86.1 fL 79.4-94.8 MCH (test code = 785-6) 26.7 pg 25.6-32.2 RDW (test code = 788-0) 16.6 % 11.7-14.4 H Platelets (test code = 777-3) 90 150- 450 K/CU MM L MPV (test code = 91775-9) 9.9 fL 9.4-12.3 nRBC (test code = 413) 0 0- 0 /100 WBC % Neutros (test code = 429) 85 % % Lymphs (test code = 430) 5 % % Monos (test code = 431) 9 % % Eos (test code = 432) 1 % % Baso (test code = 437) 0 % # Neutros (test code = 670) 3.98 1.56- 6.13 K/L # Lymphs (test code = 414) 0.24 1.18- 3.74 K/L L # Monos (test code = 415) 0.43 0.24- 0.36 K/L H # Eos (test code = 416) 0.03 0.04- 0.36 K/L L # Baso (test code = 417) 0.01 0.01- 0.08 K/L Immature Granulocytes-Relative 0 % 0-1 (test code = 2801) Lab Interpretation (test code = Abnormal 20469-8) [facility] W/PLT COUNT & AUTO [id number] 11:55:00 Test Item Value Reference Range Interpretation Comments WHITE BLOOD CELL COUNT (BEAKER) 4.7 K/ L 3.5-10.5 (test code = 775) RED BLOOD CELL COUNT (BEAKER) 3.45 M/ L 3.93-5.22 L (test code = 761) HEMOGLOBIN (BEAKER) (test code = 9.2 GM/DL 11.2-15.7 L 410) HEMATOCRIT (BEAKER) (test code = 29.7 % 34.1-44.9 L 411) MEAN CORPUSCULAR VOLUME (BEAKER) 86.1 fL 79.4-94.8 (test code = 753) MEAN CORPUSCULAR HEMOGLOBIN 26.7 pg 25.6-32.2 (BEAKER) (test code = 751) MEAN CORPUSCULAR HEMOGLOBIN CONC 31.0 GM/DL 32.2-35.5 L (BEAKER) (test code = 752) RED CELL DISTRIBUTION WIDTH 16.6 % 11.7-14.4 H (BEAKER) (test code = 412) PLATELET COUNT (BEAKER) (test code 90 K/CU MM 150-450 L = 756) MEAN PLATELET VOLUME (BEAKER) 9.9 fL 9.4-12.3 (test code = 754) NUCLEATED RED BLOOD CELLS (BEAKER) 0 /100 WBC 0-0 (test code = 413) NEUTROPHILS RELATIVE PERCENT 85 % (BEAKER) (test code = 429) LYMPHOCYTES RELATIVE PERCENT 5 % (BEAKER) (test code = 430) MONOCYTES RELATIVE PERCENT 9 % (BEAKER) (test code = 431) EOSINOPHILS RELATIVE PERCENT 1 % (BEAKER) (test code = 432) BASOPHILS RELATIVE PERCENT 0 % (BEAKER) (test code = 437) NEUTROPHILS ABSOLUTE COUNT 3.98 K/ L 1.56-6.13 (BEAKER) (test code = 670) LYMPHOCYTES ABSOLUTE COUNT 0.24 K/ L 1.18-3.74 L (BEAKER) (test code = 414) MONOCYTES ABSOLUTE COUNT (BEAKER) 0.43 K/ L 0.24-0.36 H (test code = 415) EOSINOPHILS ABSOLUTE COUNT 0.03 K/ L 0.04-0.36 L (BEAKER) (test code = 416) BASOPHILS ABSOLUTE COUNT (BEAKER) 0.01 K/ L 0.01-0.08 (test code = 417) IMMATURE GRANULOCYTES-RELATIVE 0 % 0-1 PERCENT (BEAKER) (test code = 2801) Basic Metabolic [id number] 11:54:00 Test Item Value Reference Interpretation Comments Range Sodium (test code = 131 meq/L 136-145 L 2951-2) Potassium (test code 3.4 meq/L 3.5-5.1 L = 2823-3) Chloride (test code 94 meq/L 98-107 L = 2075-0) CO2 (test code = 27 meq/L 22-29 8-9) BUN (test code = 20 mg/dL 7-21 3094-0) Creatinine (test 1.05 mg/dL 0.57-1.25 code = 2160-0) Glucose (test code = 242 mg/dL 70-105 H 2345-7) Calcium (test code = 8.3 mg/dL 8.4-10.2 L 13513-0) EGFR (test code = 52 mL/min/1.73 sq ESTIMATE D GFR 90017-7) m IS NOT ACCURATE CREATININE CLEARANCE IN PREDICTING GLOMERULAR FILTRATION RATE. ESTIMATED GFR IS NOT APPLICABLE FOR DIALYSIS PATIENTS. JEFF (test code = Belt Operator ID - EJFF) Skyler slightly icteric Lab Interpretation Abnormal (test code = 60594-1) [facility] Hospital[facility] function [id number] 11:54:00 Test Item Value Reference Range Interpretation Comments Protein, Total (test 6.1 6.0- 8.3 gm/dL code = 2885-2) Albumin (test code = 3.5 g/dL 3.5-5 19006-9) Total Bilirubin (test 3.1 mg/dL 0.2-1.2 H code = 1974-2) Bilirubin, Direct 1.7 mg/dL 0.1-0.5 H (test code = 1967-7) Alkaline Phosphatase 233 U/L 40-150 H (test code = 6768-6) AST (test code = 31 U/L 5-34 1920-8) ALT (test code = 25 U/L 6-55 1742-6) JEFF (test code = JEFF) Belt Operator ID - ROSIANGSpecimen slightly icteric Lab Interpretation Abnormal (test code = 89566-3) [facility] Hospital[facility]IC METABOLIC [id number] 11:54:00 Test Item Value Reference Range Interpretation Comments SODIUM (BEAKER) 131 meq/L 136-145 L (test code = 381) POTASSIUM (BEAKER) 3.4 meq/L 3.5-5.1 L (test code = 379) CHLORIDE (BEAKER) 94 meq/L 98-107 L (test code = 382) CO2 (BEAKER) (test 27 meq/L 22-29 code = 355) BLOOD UREA NITROGEN 20 mg/dL 7-21 (BEAKER) (test code = 354) CREATININE (BEAKER) 1.05 mg/dL 0.57-1.25 (test code = 358) GLUCOSE RANDOM 242 mg/dL 70-105 H (BEAKER) (test code = 652) CALCIUM (BEAKER) 8.3 mg/dL 8.4-10.2 L (test code = 697) EGFR (BEAKER) (test 52 mL/min/1.73 ESTIMA LUCIAN GFR IS code = 1092) sq m NOT ACCURATE CREATININE CLEARANCE IN PREDICTING GLOMERULAR FILTRATION RATE . ESTIMATED GFR I S NOT APPLICABLE FOR DIALYSIS PATIEN TS. Belt Operator ID - ROSAFIAGSpecimen slightly ictericHEPATIC FUNCTION [id number] 11:54:00 Test Item Value Reference Range Interpretation Comments TOTAL PROTEIN (BEAKER) (test code = 6.1 gm/dL 6.0-8.3 770) ALBUMIN (BEAKER) (test code = 1145) 3.5 g/dL 3.5-5.0 BILIRUBIN TOTAL (BEAKER) (test code 3.1 mg/dL 0.2-1.2 H = 377) BILIRUBIN DIRECT (BEAKER) (test 1.7 mg/dL 0.1-0.5 H code = 706) ALKALINE PHOSPHATASE (BEAKER) (test 233 U/L 40-150 H code = 346) AST (SGOT) (BEAKER) (test code = 31 U/L 5-34 353) ALT (SGPT) (BEAKER) (test code = 25 U/L 6-55 347) Belt Operator ID - ROSIANGSpecimen slightly ictericProthrombin time/[id number] 11:42:00 Test Item Value Reference Range Interpretation Comments Protime (test code = 15.8 11.9- 14.2 H 5902-2) seconds INR (test code = 1.30 <=5.90 6301-6) JEFF (test code = JFEF) Effective 08/04/2018: PT Reference Range ChangeNew: 11.9-14.2 Previous: 11.7-14.7 RECOMMENDED COUMADIN/WARFARIN INR THERAPY RANGESSTANDARD DOSE: 2.0-3.0 Includes: PROPHYLAXIS for venous thrombosis, systemic embolization; TREATMENT for venous thrombosis and/or pulmonary embolus.HIGH RISK: Target INR is 2.5-3.5 for patients wiht mechanical heart valves. Lab Interpretation Abnormal (test code = 07593-5) [facility] HospitalPROTHROMBIN TIME/[id number] 11:42:00 Test Item Value Reference Range Interpretation Comments [...] INR is2.5-3.5 for patients wiht mechanical heart valves.BODY FLUID CELL COUNT WITH [id number] 15:47:00 Test Item Value Reference Range Interpretation Comments APPEARANCE FLUID (BEAKER) (test Hazy Clear A code = 510) COLOR FLUID (BEAKER) (test code = Straw Colorless, Straw 511) RBC FLUID (BEAKER) (test code = 525 /cu mm <=1 H 513) ADJUSTED WBC FLUID (BEAKER) (test 106 /cu mm <=5 H code = 1691) LINING CELLS (BEAKER) (test code 24 /cu mm <=1 H = 1590) NEUTROPHILS FLUID (BEAKER) (test 12 % code = 1656) LYMPHS FLUID (BEAKER) (test code 23 % = 488) MONO/MACROPHAGE FLUID (BEAKER) 65 % (test code = 489) EOSINOPHILS FLUID (BEAKER) (test 0 % code = 491) BASO FLUID (BEAKER) (test code = 0 % 492) CONTAINER BODY FLUID (BEAKER) EDTA Tube (test code = 2873) U/S, [id number] 11:30:00Referring: Dr. Nizam MeahAdminister 200 mL of albumin 25% (50 grams) IV x1 after paracentesis if 3 or more liters removed.Send ascitic fluid for cell count and differential.Labs to be ordered:->Other (please add comment)cell count diffReason for Exam:->[facility] : 1955 Sex: FFINAL REPORT Ultrasound guided paracentesis. Clinical History: As cites. Sedation: None. Forge Heater: Joellen Cuellar PA-C Cold Meat Chef: None. Estimated Blood Loss: < 1 cc. Specimen: 5300 cc of clear yellow fluid, samples sent [...] was achieved with 2% lidocaine, a 5 Italian one-step catheter was advanced into the peritoneal cavity under ultrasound guidance. After completion of drainage, the catheter was removed. There was no evidence of complication. Impression:Successful ultrasound guided paracentesis. Signed: Reynold Greene Verified Date/Time: 01/13/2020 11:30:37 Reading Location: [address] Ultrasound Reading Room BODY FLUID CELL COUNT WITH [id number] 16:17:00 Test Item Value Reference Range Interpretation [...] Cup (test code = 2873) MR, ABDOMEN, [id number] 15:37:00Referring: Dr. Najma Robledo [facility] : 1955 Sex: FFINAL [...] endplate of L1. Signed: Jose D Roland rn MDReport Verified Date/Time: 01/06/2020 15:37:27 MR abdomen without & with IV [id number] 15:37:00Interface, External Ris In - 01/06/2020 3:39 [...] endplate of L1. Signed: Jose D Pichardo [facility] Verified Date/Time: 01/06/2020 15:37:27 [facility] [id number] 14:49:00Referring: [facility]. Najma Broder[facility] : 1955 Sex: [...] Date/Time: 01/06/2020 14:49:26 CT chest without IV [id number] 14:49:00Interface, External Ris In - 01/06/2020 2:51 [...] with mild retropulsion. Signed: Jose D Pichardo [facility] Verified Date/Time: 01/06/2020 14:49:26 [facility] HospitalU/S, [id number] 13:56:00Referring: Dr. Najma Sultanainishayder 200 mL of albumin 25% (50 grams) IV x1 after paracentesis if 3 or more liters removed.Send ascitic fluid for cell count and differential.Labs to be ordered:->Other (please add comment)cell count diffReason for Exam:->HCC, ASCITIS [facility] : 1955 Sex: FFINAL REPORT Ultrasound guided paracentesis Clinical History: Asc ites. Sedation: None. Forge Heater: Elaine Blake PA-C Supervising Physician: Karina Conner MD Cold Meat Chef: None. Estimated Blood Loss: < 1 mL. [...] anesthesia was achieved with lidocaine, a 5 Italian one-step catheter was advancedinto the peritoneal cavity under ultrasound guidance. After completion of drainage, the catheter was removed. There was no evidence of complication. Impression:Successful ultrasound guided paracentesis. Signed: Karina Conner MDReport Verified Date/Time: 01/06/2020 13:56:08 Reading Location: [address] Ultrasound Reading Room U/S, [id number] 20:17:00Referring: Dr. Najma Sultanainister 200 mL of albumin 25% (50 grams) IV x1 after paracentesis if 3 or more liters removed.Send ascitic fluid for cell count and differential.Labs to be ordered:->Other (please add comment)cell count and diffReason for Exam:->HCC, ASCITIS [facility] : 1955 Sex: FFINAL REPORT Ultrasound guided paracentesis Clinical History: Asc ites. Sedation: None. Forge Heater: Elaine Blake PA-C Supervising Physician: Andre Frederick MD Cold Meat Chef: None. Estimated Blood Loss: < 1 mL. [...] anesthesia was achieved with lidocaine, a 5 Italian one-step catheter was advanced into the peritoneal cavity under ultrasound guidance. After completion of drainage, the catheter was removed. There was no evidence of complication. Impression:Successful ultrasound guided paracentesis. Signed: Andre Frederick MDReport Verified Date/Time: 12/30/2019 20:17:35 Reading Location: [address] Ultrasound Reading Room BODY FLUID CELL COUNT WITH [id number] 15:41:00 Test Item Value Reference Range Interpretation [...] (BEAKER) Sterile Cup (test code = 2873) [id number] 08:18:00 Test Item Value Reference Range Interpretation Comments PTT (test code = 58798-4) 33.9 22.5- 36.0 seconds Lab Interpretation (test code = Normal 98220-4) [facility] HospitalAPTT2020-10-[facility] 08:18:00 Test Item Value Reference Range Interpretation Comments PARTIAL THROMBOPLASTIN TIME 33.9 seconds 22.5-36.0 (BEAKER) (test code = 760) PROTHROMBIN TIME/[id number] 08:17:00 Test Item Value Reference Range Interpretation [...] mechanical heart valves.CBC W/PLT COUNT & AUTO [id number] 08:08:00 Test Item Value Reference Range Interpretation [...] PERCENT (BEAKER) (test code = 2801) U/S, [id number] 19:29:00Referring: Dr. Najma Sultanainister 200 mL of albumin 25% (50 grams) IV x1 after paracentesis if 3 or more liters removed.Send ascitic fluid for cell count and differential.Labs to be ordered:->Other (please add comment)cell count and diffReason for Exam:- >[facility] : 1955 Sex: FFINAL REPORT Ultrasound guided paracentesis. Clinical History: Ascites. Sedation: None. Forge Heater: Joellen Cuellar PA-C Cold Meat Chef: None. Estimated Blood Loss: < 1 cc. [...] was achieved with 2% lidocaine, a 5 Italian one-step catheter was advanced into the peritoneal cavity under ultrasound guidance. After completion of drainage, the catheter was removed. There was no evidence of complication. Impression:Successful ultrasound guided paracentesis. Signed: Reynold Greeneeport Verified Date/Time: 12/24/2019 19:29:37 Reading Location: [address] Ultrasound Reading Room BODY FLUID CELL COUNT WITH [id number] 15:47:00 Test Item Value Reference Range Interpretation [...] Sterile Vial (test code = 2873) U/S, [id number] 14:31:00Referring: Dr. Najma Sultanainister 200 mL of albumin 25% (50 grams) IV x1 after paracentesis if 3 or more liters removed.Send ascitic fluid for cell count and differential.Labs to be ordered:->Other (please add comment)cell count and diffReason for Exam:- >HCC, ASCITISFINAL REPORT Ultrasound guided paracentesis. Clinical History: Ascites. Sedation: None. Forge Heater: Joellen Cuellar PA-C Cold Meat Chef: None. Estimated Blood Loss: < 1 cc. [...] was achieved with 2% lidocaine, a 5 Italian one-step catheter was advanced into the peritoneal cavity under ultrasound guidance. After completion of drainage, the catheter was removed. There was no evidence of complication. Impression:Successful ultrasound guided paracentesis. Signed: Randy Radford MDReport Verified Date/Time: 12/16/2019 14:31:43 Reading Location: [facility] P006 Ultrasound Reading Room BODY FLUID CELL COUNT WITH [id number] 13:26:00 Test Item Value Reference Range Interpretation [...] = 2873) BODY FLUID CELL COUNT WITH [id number] 15:27:00 Test Item Value Reference Range Interpretation [...] Sterile Cup (test code = 2873) U/S, [id number] 14:56:00Referring: Dr. Najma Sultanainister 200 mL of albumin 25% (50 grams) IV x1 after paracentesis if 3 or more liters removed.Send ascitic fluid for cell count and differential.Labs to be ordered:->Other (please add comment)cell count and diffReason for Exam:- >HCC, ASCITISFINAL REPORT Ultrasound guided paracentesis Clinical History: Ascites. Sedation: None. Forge Heater: Elaine Blake PA-C Supervising Physician: Reynold Greene MD Cold Meat Chef: None. Estimated Blood Loss: < 1 mL. [...] anesthesia was achieved with lidocaine, a 5 Italian one-step catheter was advanced into theperitoneal cavity under ultrasound guidance. After completion of drainage, the catheter was removed.There was no evidence of complication. Impression:Successful ultrasound guided paracentesis. Signed:Reynold Greene [facility] Verified Date/Time: 12/09/2019 14:56:31 Reading Location: [place] [address] Ultrasound Reading Room U/S, [id number] 09:23:00Referring: Dr. Najma Sultanainishayder 200 mL of albumin 25% (50 grams) IV x1 after paracentesis if 3 or more liters removed.Send ascitic fluid for cell count and differential.Labs to be ordered:->Other (please add comment)CELL count and diffReason for Exam:->HCC,ASCITISFINAL REPORT Ultrasound guided paracentesis Clinical History: Ascites. Sedation: None. Forge Heater: Elaine Blake PA-C Supervising Physician: Karina Conner MD Cold Meat Chef: None. Estimated Blood Loss: < 1 mL. [...] anesthesia was achieved with lidocaine, a 5 Italian one-step catheter was advanced into the peritoneal cavity under ultrasound guidance. After completion of drainage, the catheter was removed. There was no evidence of complication. Impression:Successful ultrasound guided paracentesis. Signed: Karina Conner Verified Date/Time: 12/01/2019 09:23:48 Reading Location: [address] UltrasoundReading Room Glucose Peritoneal [id number] 18:11:00 Test Item Value Reference Range Interpretation Comments Glucose, 327 mg/dL Reference Rang e Peritoneal Fluid approximate s that (test code = found in serum. 2347-3) JEFF (test code = Performing Lab JEFF) EZ CITTIO [facility] [address] [place] [address] Obdulio Griffith MD, PhD, MOON [facility] HospitalU/S, [id number] 08:30:00Referring: Dr. Najma Hoff to be ordered:->Body Fluid Culture (w/Gram Stain, C\\T\\S)AlbuminLabsto be ordered:->Glucose+LDH+ProteinLabs to be ordered:- >Cell CountLabs to be ordered:->Other (please add comment)Reason for exam:->SBPFINAL REPORT Ultrasound guided paracentesis Clinical History: Ascites. Sedation: None. Forge Heater: Elaine Blake PA-C Supervising Physician: Reynold Greene MD Cold Meat Chef: None. Estimated Blood Loss: < 1 mL. [...] anesthesia was achieved with lidocaine, a 5 Italian one-step catheter was advanced into the p eritoneal cavity under ultrasound guidance. After completion of drainage, the catheter was removed. There was no evidence of complication. Impression:Successful ultrasound guided paracentesis. Signed: Reynold Greene Verified Date/Time: 11/29/2019 08:30:43 Reading Location: [address] Ultrasound Reading Room Blood Culture - Routine (Left Venipuncture)2019-11-28 19:00:00 Test Item Value Reference Range Interpretation Comments Result (test code = No growth in 5 days 6463-4) [facility] HospitalBLOOD [id number] 19:00:00 Test Item Value Reference Range Interpretation Comments CULTURE (BEAKER) (test No growth in 5 days code = 1095) BODY FLUID CULTURE + GRAM [id number] 12:16:00 Test Item Value Reference Range Interpretation Comments CULTURE (BEAKER) (test code No growth = 1095) GRAM STAIN RESULT (BEAKER) 3+ WBCs (test code = 1123) GRAM STAIN RESULT (BEAKER) No organisms seen (test code = 79589) Body fluid culture + gram [id number] 12:10:00 Test Item Value Reference Range Interpretation Comments Result (test code = 6463-4) No growth Gram Stain Result (test No organisms seen code = 1123) [facility] HospitalBODY FLUID CULTURE + GRAM [id number] 12:10:00 Test Item Value Reference Range Interpretation Comments CULTURE (BEAKER) (test code No growth = 1095) GRAM STAIN RESULT (BEAKER) 3+ WBCs (test code = 1123) GRAM STAIN RESULT (AKER) No organisms seen (test code = 49645) POC-Glucose [id number] 12:02:00 Test Item Value Reference Range Interpretation Comments POC-Glucose Meter (test 221 mg/dL 70-110 H : TE STED AT [facility] code = 1538) 67[address] [facility], 770 30: Belt Operator/Techni gianluca ID = [id number] for ISABELLE, DAVION Lab Interpretation (test Abnormal code = 93132-6) [facility] HospitalPOCT-GLUCOSE [id number] 12:02:00 Test Item Value Reference Range Interpretation Comments POC-GLUCOSE METER 221 mg/dL 70-110 H : TESTED A T [facility] 6720 (BEAKER) (test code [facility], = 1538) [address]: Belt Operator/Techni gianluca ID = [id number] for WALTON, DAVION POCT-GLUCOSE [id number] 07:49:00 Test Item Value Reference Range Interpretation Comments POC-GLUCOSE METER 144 mg/dL 70-110 H : TESTED A T [facility] 6720 (BEAKER) (test code = [facility], 153) 29877: Belt Operator/Techni gianluca ID = [id number] for GUSTAVO HARRIS BRENNAN POCT-GLUCOSE [id number] 21:41:00 Test Item Value Reference Range Interpretation Comments POC-GLUCOSE METER 201 mg/dL 70-110 H : TESTED A T [facility] 6720 (BEAKER) (test code = [facility], 153) 91925: Belt Operator/Techni gianluca ID = [id number] for MARITZA FLORES POCT-GLUCOSE [id number] 16:29:00 Test Item Value Reference Range Interpretation Comments POC-GLUCOSE METER 122 mg/dL 70-110 H : TESTED A T [facility] 6720 (BEAKER) (test code = [facility], 153) 97696: Belt Operator/Techni gianluca ID = [id number] for Zhang Palacios POCT-GLUCOSE [id number] 11:03:00 Test Item Value Reference Range Interpretation Comments POC-GLUCOSE METER 305 mg/dL 70-110 H : TESTED A T [facility] 6720 (BEAKER) (test code = [place]ERT[place] R SHAI[place], 1538) 23452: Belt Operator/Techni gianluca ID = [id number] for KRZYSZTOF BAPTISTE POCT-GLUCOSE [id number] 08:12:00 Test Item Value Reference Range Interpretation Comments POC-GLUCOSE METER 192 mg/dL 70-110 H : TESTED A T [facility] 6720 (BEAKER) (test code = [place]AI[place], 1538) [address]: Belt Operator/Techni gianluca ID = [id number] for GOMEZ KRZYSZTOF MAYS Comprehensive metabolic [id number] 06:06:00 Test Item Value Reference Range Interpretation Comments Protein, Total (test 5.7 6.0- 8.3 gm/dL L code = 2885-2) Albumin (test code = 3.3 g/dL 3.5-5 L 82388-3) Alkaline Phosphatase 139 U/L 40-150 (test code = 6768-6) Total Bilirubin (test 1.6 mg/dL 0.2-1.2 H code = 1975-2) Sodium (test code = 136 meq/L 556-143 2376-2) Potassium (test code = 4.3 meq/L 3.5-5.1 2823-3) Chloride (test code = 99 meq/L 98-107 2075-0) CO2 (test code = 29 meq/L 22-29 2028-9) BUN (test code = 21 mg/dL 7-21 3094-0) Creatinine (test code 0.87 mg/dL 0.57-1.25 = 2160-0) Glucose (test code = 150 mg/dL 70-105 H 2345-7) Calcium (test code = 8.3 mg/dL 8.4-10.2 L 15037-5) AST (test code = 33 U/L 5-34 1920-8) ALT (test code = 39 U/L 6-55 1742-6) EGFR (test code = 65 mL/min/1.73 [place] [address]-0) NOT ACCURATE CREATININE CLEARANCE IN PREDICTING GLOMERULAR FILTRATION RATE . ESTIMATED GFR I S NOT APPLICABLE FOR DIALYSIS PATIENTS. JEFF (test code = JEFF) Belt Operator ID - AAMIR M Lab Interpretation Abnormal (test code = 97610-2) [facility] HospitalCOMPREHENSIVE METABOLIC [id number] 06:06:00 Test Item Value Reference Range Interpretation [...] S NOT APPLICABLE FOR DIALYSIS PATIEN TS. Belt Operator ID - AAMIR MPROTHROMBIN TIME/[id number] 05:08:00 Test Item Value Reference Range Interpretation [...] mechanical heart valves.CBC W/PLT COUNT & AUTO [id number] 05:03:00 Test Item Value Reference Range Interpretation [...] PERCENT (BEAKER) (test code = 2801) POCT-GLUCOSE [id number] 22:43:00 Test Item Value Reference Range Interpretation Comments POC-GLUCOSE METER 146 mg/dL 70-110 H : TESTED A T [facility] 6720 (BEAKER) (test code = [facility], 153) 25704: Belt Operator/Techni gianluca ID = [id number] for CHRISTOPHER POLLOCK POCT-GLUCOSE [id number] 17:07:00 Test Item Value Reference Range Interpretation Comments POC-GLUCOSE METER 224 mg/dL 70-110 H : [facility] A T [facility] 6720 [facility] (test code = [facility], [facility]) [address]2857: Belt Operator/Techni gianluca ID = [id number] for BRENNAN GURROLA POCT-GLUCOSE [id number] 11:56:00 Test Item Value Reference Range Interpretation Comments POC-GLUCOSE METER 151 mg/dL 70-110 H : TESTED A T [facility] 6720 (BEAKER) (test code = [facility], 153) 46071: Belt Operator/Techni gianluca ID = [id number] for BRENNAN GURROLA POCT-GLUCOSE [id number] 08:37:00 Test Item Value Reference Range Interpretation Comments POC-GLUCOSE METER 119 mg/dL 70-110 H : TESTED A T [facility] 6720 (BEAKER) (test code = [facility], 153) 79154: Belt Operator/Techni gianluca ID = [id number] for Joellen Gómez COMPREHENSIVE METABOLIC [id number] 05:36:00 Test Item Value Reference Range Interpretation [...] S NOT APPLICABLE FOR DIALYSIS PATIEN TS. Belt Operator ID - PIAYA LPOCT-GLUCOSE [id number] 20:50:00 Test Item Value Reference Range Interpretation Comments POC-GLUCOSE METER 189 mg/dL 70-110 H : TESTED A T [facility] 6720 (BEAKER) (test code = [facility], 153) 56531: Belt Operator/Techni gianluca ID = [id number] for DE BROOKS LIONI POCT-GLUCOSE [id number] 17:38:00 Test Item Value Reference Range Interpretation Comments POC-GLUCOSE METER 334 mg/dL 70-110 H : TESTED A T [facility] 6720 (BEAKER) (test code = [facility], 153) 37509: Belt Operator/Techni gianluca ID = [id number] for CL DAMIEN, JOELLEN BODY FLUID CELL COUNT WITH [id number] 17:34:00 Test Item Value Reference Range Interpretation [...] Not Detected, (test code = Negative, See 62811-4) external report for linked test SARS-COV-2 [facility] PERFORMING LAB (test code = 52129-7) JEFF (test code = Negative result for [...] of the Act. Fact Sheet for Healthcare Providers:https://www.[employer]/sites/default/f rachelle/product/documents/F act_Sheet_HC_Providers_L doj_MMOI-MgL-3.pdf Fact Sheet for Healthcare Patients:https://www.[employer]/sites/default/fi les/product/documents/Fa ct_Sheet_Patients_Lyra_S ARS-CoV-2.pdf Performing Laboratory:[facility] [place], [place] [address] [place], [place] [address]ARS-COV2/RT-PCR ([facility])2019-11-24 15:05:00 Test Item Value Reference Range Interpretation Comments SARS-COV2/RT-PCR (test Negative Not Detected, Negative, code = 3098662) See external report for linked test SARS-COV-2 PERFORMING LAB [facility] HERMILO (test code = 7569566) Negative result for this test determines that [...] 564(g) of the Act.Fact Sheet for Healthcare Providers:https://www.[employer]/sites/default/files/product/documents/Fact_Shee f_ZF_Plafawyoz_Tjav_EULY-PpB-6.pdfFact Sheet for Healthcare Patients:https://www.[employer]/sites/default/files/product/ documents/Luvz_Smzyn_Obgytqgn_Pidj_HJFK-TqB-1.pdfPerforming Laboratory:[facility], [place] [address]ELKSPAXHVAR TIME/INR 2019-11-24 10:35:00 Test Item Value Reference Range Interpretation Comments PROTIME (NATE) (test code = 16.4 seconds 11.9-14.2 H 759) INR (JOEYAKER) (test code = 370) 1.36 <=5.90 Effective 08/04/2018: PT Reference Range ChangeNew: 11.9-14.2 Previous: 11.7- 14.7RECOMMENDED COUMADIN/WARFARIN INR THERAPY RANGESSTANDARD DOSE: 2.0-3.0 Includes: PROPHYLAXIS for venous thrombosis, systemic embolization; TREATMENT for venous thrombosis and/or pulmonary embolus.HIGH RISK: Target INR is2.5-3.5 for patients wiht mechanical heart valves.POCT-GLUCOSE [id number] 07:53:00 Test Item Value Reference Range Interpretation Comments POC-GLUCOSE METER 131 mg/dL 70-110 H : TESTED A T [facility] 6720 (RED) (test code = LUCITA Kidd [facility], 1538) [address]: Belt Operator/Techni gianluca ID = [id number] for ZONIA ISSA COMPREHENSIVE METABOLIC [id number] 07:12:00 Test Item Value Reference Range Interpretation [...] S NOT APPLICABLE FOR DIALYSIS PATIEN TS. Belt Operator ID - AAMIR MPOCT-GLUCOSE [id number] 23:59:00 Test Item Value Reference Range Interpretation Comments POC-GLUCOSE METER 121 mg/dL 70-110 H : TESTED A T [facility] 6720 (BEAKER) (test code = [place]A SHAI[place], 1538) [address]: Belt Operator/Techni gianluca ID = [id number] for AFSHIN ROMERO POCT-GLUCOSE [id number] 20:24:00 Test Item Value Reference Range Interpretation Comments POC-GLUCOSE METER 306 mg/dL 70-110 H : TESTED Alicia Escobar [facility] 6720 (BEAKER) (test code = [place], 1538) [address]: Belt Operator/Techni gianluca ID = [id number] for DE YULIA LION CBC W/PLT COUNT & AUTO [id number] 18:32:00 Test Item Value Reference Range Interpretation [...] = 2801) Urinalysis w/Microscopic + Reflex to [id number] 17:22:00 Test Item Value Reference Range Interpretation Comments Color, UA (test code = Yellow 5778-6) Clarity, UA (test code = Clear 5767-9) Specific [place], UA (test 1.026 1.001-1.035 code = 5811-5) pH, UA (test code = 5.0 5.0-8.0 5803-2) Protein, UA (test code = Negative Negative 46322-0) Glucose, UA (test code = >1000 mg/dL Negative A 365) Ketones, UA (test code = Negative Negative 2514-8) Bilirubin, UA (test code = Negative Negative 20695-0) Blood, UA (test code = Negative Negative 38081-5) Nitrite, UA (test code = Negative Negative 5802-4) Leukocytes, UA (test code Small Negative A = 5799-2) Urobilinogen, UA (test 0.2 mg/dL 0.2-1 code = 07996-2) RBC, UA (test code = 1 /HPF 40744-3) WBC, UA (test code = 1 /HPF 5821-4) Mucus (test code = 8247-9) Rare Squam Epithel, UA (test 1 /HPF code = 44318-3) Specimen Source (test code = 2795) JEFF (test code = JEFF) Belt Operator ID - [auto]Belt Operator ID - tech Lab Interpretation (test Abnormal code = 55678-0) [facility]/ REFLEX URINE [id number] 17:22:00 Test Item Value Reference Range Interpretation [...] = 516) SOURCE(BEAKER) (test code = 2795) Belt Operator ID - [auto]Belt Operator ID - techCOMPREHENSIVE METABOLIC [id number] 17:21:00 Test Item Value Reference Range Interpretation [...] S NOT APPLICABLE FOR DIALYSIS PATIEN TS. Belt Operator ID - BSSpecimen slightly ictericBODY FLUID CELL [...] (test code = 2873) U/S, UNSPECIFIC GUIDANCE, [id number] 11:30:00FINAL REPORT Please see the report under accession #[id number]. Thank you. Jolie delgado: Randy Radford Verified Date/Time: 11/21/2019 11:30:50 Reading Location: [address] Body Reading Room US unspecific guidance interventional 2019-11-21 11:30:00Interface, External Ris In - 11/21/2019 11:32 AM CDTFINAL REPORT Please see the report under accession #[id number]. Thank you. Signed: Randy Radford MDReport Verified Date/Time: 11/21/2019 11:30:50 Reading Location: [place] [id number] Angio Body [facility] [id number] 10:38:00Referring: Dr. Najma Parrish for Exam:->hcc,cirrhosisFINAL REPORT [...] ablation was recommended in a tumor board. Forge Heater: Randy Radford MD. Cold Meat Chef: Alex Richardson Modality: Ultrasound and CT DOSE [...] in the target. At this time, a4 Italian centesis needle needle was advanced under the [...] MDReport Verified Date/Time: 11/21/2019 10:38:16 Reading Location: [address] Body Reading Room CT RFA tumor [id number] 10:38:00Interface, External Ris In - 11/21/2019 10:40 [...] was re commended in a tumor board. Forge Heater: Randy Radford MD. Cold Meat Chef: Alex Richardson Modality: Ultrasound and CT DOSE [...] the target. At this time, a 4 Italian centesis needle needle was advanced under the [...] MDReport Verified Date/Time: 11/21/2019 10:38:16 Reading Location: [facility] P048 Angio Body Reading Room [facility] 12 [id number] 08:38:33Interface, External Ris In - 11/21/2019 8:38 AM CDTVentricular Rate 77 BPMAtrial Rate 77 BPMP-R Interval 154 msQRS Duration 92 msQ-T Interval 416 msQTC Calculation(Bazett) 470 msP Hull 80 degreesR Hull 78 degreesT Hull 45 degreesNormal sinus rhythmPossible Anterior infarct 06 Feb 2018Prolonged QTAbnormal ECGWhen compared with ECG of 06-FEB-2018 12:50,QRS axis has shifted from rightQT has lengthenedConfirmed by MD RAYRAY, DANI ([id number]) on 11/21/2019 8:38:28 [facility] POCT-GLUCOSE [id number] 16:57:00 Test Item Value Reference Range Interpretation Comments POC-GLUCOSE METER 237 mg/dL 70-110 H : TESTED A T [facility] 6720 (BEAKER) (test code = [facility], 1538) 34234: Belt Operator/Techni gianluca ID = [id number] for IB RAHIM, SERKALEM POCT-GLUCOSE [id number] 11:38:00 Test Item Value Reference Range Interpretation Comments POC-GLUCOSE METER 140 mg/dL 70-110 H : TESTED A T [facility] 6720 (BEAKER) (test code = [facility], 1538) 96894: Belt Operator/Techni gianluca ID = [id number] for IB RAHIM, SERKALEM POCT-GLUCOSE [id number] 08:11:00 Test Item Value Reference Range Interpretation Comments POC-GLUCOSE METER 134 mg/dL 70-110 H : TESTED A T [facility] 6720 (BEAKER) (test code = [facility], 1538) 76352: Belt Operator/Techni gianluca ID = [id number] for IB RAHIM, SERKALEM COMPREHENSIVE METABOLIC [id number] 07:36:00 Test Item Value Reference Range Interpretation [...] S NOT APPLICABLE FOR DIALYSIS PATIEN TS. Belt Operator ID - AAMIR MSpecimen slightly ictericCBC (Hemogram only)2019-11-19 04:54:00 Test Item Value Reference [...] K/CU MM L MPV (test code = 99076-7) 10.5 fL 9.4-12.3 nRBC (test code = 413) 0 0- 0 /100 WBC Lab Interpretation (test code = Abnormal 61588-1) [facility] HospitalCBC (HEMOGRAM ONLY)2019-11-19 04:54:00 Test Item Value Reference [...] WBC 0-0 (test code = 413) POCT-GLUCOSE [id number] 22:54:00 Test Item Value Reference Range Interpretation Comments POC-GLUCOSE METER 335 mg/dL 70-110 H : TESTED A T [facility] 6720 (BEAKER) (test code = [facility], 153) 73669: Belt Operator/Techni gianluca ID = [id number] for Ar Sarah fuchs POCT-GLUCOSE [id number] 18:15:00 Test Item Value Reference Range Interpretation Comments POC-GLUCOSE METER 370 mg/dL 70-110 H : TESTED A T [facility] 6720 (BEAKER) (test code = [facility], 153) [address]: Belt Operator/Techni gianluca ID = [id number] for RADHA ROGERS POCT-GLUCOSE [id number] 11:34:00 Test Item Value Reference Range Interpretation Comments POC-GLUCOSE METER 151 mg/dL 70-110 H : TESTED A T [facility] 6720 (BEAKER) (test code = [place] SHAI[place], 1538) [address]: Belt Operator/Techni gianluca ID = [id number] for JOE KILLIAN CBC W/PLT COUNT & AUTO [id number] 09:47:00 Test Item Value Reference Range Interpretation [...] 0-1 PERCENT (BEAKER) (test code = 2801) BASIC METABOLIC [id number] 08:36:00 Test Item Value Reference Range Interpretation [...] I S NOT APPLICABLE FOR DIALYSIS PATIEN LIDIA. Belt Operator ID - ELSA [id number] 07:47:00 Test Item Value Reference Range Interpretation Comments PARTIAL THROMBOPLASTIN TIME 34.5 seconds 22.5-36.0 (BEAKER) (test code = 760) PROTHROMBIN TIME/[id number] 07:46:00 Test Item Value Reference Range Interpretation Comments PROTIME (BEAKER) (test code = 16.1 seconds 11.9-14.2 H 759) INR (BEAKER) (test code = 370) 1.33 <=5.90 Effective 08/04/2018: PT Reference Range ChangeNew: 11.9-14.2 Previous: 11.7- 14.7RECOMMENDED COUMADIN/WARFARIN INR THERAPY RANGESSTANDARD DOSE: 2.0-3.0 Includes: PROPHYLAXIS for venous thrombosis, systemic embolization; TREATMENT for venous thrombosis and/or pulmonary embolus.HIGH RISK: Target INR is2.5-3.5 for patients wiht mechanical heart valves.SARS-COV2/RT-PCR ([facility]) 2019-11-16 11:34:00 Test Item Value Reference Range Interpretation Comments SARS-COV2/RT-PCR (test Negative Not Detected, Negative, code = 3490646) See external report for linked test SARS-COV-2 PERFORMING LAB [facility] HERMILO (test code = 2280473) Negative result for this test determines that [...] 564(g) of the Act.Fact Sheet for Healthcare Providers:https://www.[employer]/sites/default/files/product/documents/Fact_Shee i_NR_Iyzmoxylm_Nqik_ETTC-PgV-5.pdfFact Sheet for Healthcare Patients:https://www.[employer]/sites/default/files/product/ documents/Cvjh_Qetce_Notdygav_Xgmd_ODIH-TgK-6.pdfPerforming Laboratory:[facility], [place] [id number] 16:58:00 Test Item Value Reference Range Interpretation Comments Case Report (test code Medical Cytology = 104) Report Case: [id number] Authorizing Provider: Peggy Robb MD Collected: 11/11/2019 08:21 AM Ordering Location: [facility] Radiology Main Received: 11/15/2019 09:37 AM Pathologist: Alberto Caba MD Specimen: Peritoneal Fluid DIAGNOSIS (test code = a1oswMBrLVJsr7fsCCAeyK 3220) FuZzEwMzNcZnRuYmpcdWMx XXdnrcXyFXmyx8SmX7DwYd AwMFxhbnNpXGRlZmxhbmcx AGDfRZB8dyMjLSEpOQocJZ JdRPbrLm6ikRAdfOraSxYz REEyv7xunmTIjbuplYb9r4 jfYVCvVvI0rWFgWIjdZ6du neSocRTnEGGoSQi8tL37YJ GziA8pqLDnBFervaScEnS0 QYywPSYyOiX7ZEDpdRIbQA LxM8dwCJCsBXwnWMPiFFxy nCGoWOI3hFpxv2T0pYSvrO OmgPzkNgFsXgVuKQTId5Cb JAw0pGajD5UpUJQuKfJ4cI QgUGFyYWdyYXBoIEZvbnQ7 tK55UBjxxeC4cCMep6Ouk3 5lv430tZ6qeGKqIEC7LTSa JKWwyILuACElYCU6OUUsjR TrQ4g5EcFccYWmH7P4WgTi pKDfD2X7GsJavZLpE0N5Ch JzqBJoDCNltGUuHf4nwXVn bEKtvo7pvl78ITY1m5XchX eyBDV9URO0IoTvWz1icZMo RNKqQC0dAiPuwWLeVMGbsg 52zTkwUYscmmPmyK4iMnBr XDBkfMVsHCLvJC6qvIUuEF LshL2enhioLXIiOxIwpadb BOYkmCkqamQdMf6gaEnpOH U7YTadP8afnP1gRmW4RWcy X8asfK0uNEu1DSfpcFR7JF EjgJ3eQH8urmmzz4kjGmHr BB0uyqhqg3wtZqPcMQ6ahq f6g8brUcGdLF9ydvwci1wv NzIwXGhlYWRlcnkwXGZvb3 QdqanmPERdd5YrU5EefBnm Q87arHuqK83iUPKkaYdteV 8ltIhkwW1rVcOiWhPcCFur bFxwbGFpblxmMVxmczIwXG cxuzvnHJFyUCosN1osZcLw UPLypVbaNNwss8DkZPRcBC ZzMjAgUEVSSVRPTkVBTCBG VRONSLHqS6bCA7LYOF6YSU ahmMvwQRImCTAmSQ5ZU7JQ OHSKSDMZJyLPBXgAW99ZOq NZXHBhciAgICAgIEZFVyBM GR9DGN2XPTKECcGJCeTCNG 4AASElbd13GLV8HoPwo2B6 FVF5UVEyIYJip8vmQSSizQ FuZzEwMzNcZnRuYmpcdWMx PXUjPcGxd6zux657fLHjm3 zeFKMnQtW0wRWnEHTdvPXk C891URUtEVqca7uks7VcHP ZosXTtv4F1NOPUuhmeoFh8 bKlkJ71tq4H7XrseJ8lyEW FlEHSjF1WjAU8xPRItZnw3 AMP2ZXN4XMDxQRSrW1LgMW 1zTSAsvQHyYEv5g0zkaBpb BBDuEHE1p9ndGLozkoCqMK 7nkc7zkIp6k7wbxdYuFVVx KKVwbCZHFHSsA1JlmCluLe 3oyIl8dTryGdaaPHG3Qiu0 KY6upw21pzy3fNimWKAsag fgXoB2CYevBTQpjsonCBm6 UMzfUTQouBZ8YNKlzUFhO7 VjAETvQH3vrpl0JFN3FAta CCOaOgY2VSMxlVJsVPEaxW xxUMvhz222ROV5LlNnKT8b A2Zxx7I7uD4vnZPdIILvmZ JhZsPzUQSzzt0kjRUyDGle e6LvHHS8wuF4pVQvzCAtBT MlLoP2MMfvJZ3zij59RTHs KDL2ln4zuYRzuYrhhxEyxR YsBHwiY3SkGYFml037NAKf N5EwLZMqh3J5nrOrIuOxVY VswYS6hmH4TOJgDN0ankqu o1vaBHhwGScyRXIdgqN9tt Z2JJZjgRFwT5ZmzM6lCHXq CT8ndctea8ytJUB5ETmgTC IyYIP5MpGgKJQgq8Iouko0 HzYku1TgtARqEDecH98yn2 12WCArkaCjI0ackPPnlggx iODzaurwIQmfrtD8IOCaPU kvgvhhSDTmRDnxW3xoDpIt HCPdiIigAPecn1IkJSCpOA YhEjIdxYNmGUUtOoa8HQNk nCAaOVNoVnOuQ9zzgbopMn XWKLYut9stU7ayyTWYsDJz O4AhKQrmegYtEJziDZwbRB ZaRJJ1VC8iPDXlNdhfLIP6 fQ== CPT Code(s) (test code t4rfbQGqDFPfaMBaNwFfXY = 335) WwLBKvh0lyPYQeyKBiNeVr MzNcZnRuYmpcdWMxXGRlZm Nns4lfn498pRQhr8uyTDXy FgJ3qAPqMTWzyWJzZ937w1 pdz2zokgNuyAU2WPQzYDC2 PEufrrAycxU8ADqgnKEtEj L1UOmnhaUhMIxctyWpuyFc Brx8ULFhD128ZQB4eFjjx1 aqERT3DOYtUADjDbSnLv5w uGFpR228PGFqFUGVJTTrzZ p4SDXfklYrvcWrwBMKw460 Y991x8ahWVTiuvXpgSwThj sbw1eoY584GBXpoMKbxvJl ZlBtSXChvQKeqLI4LUFzTR 4jisghLjJvDO4wrxdiIgKu TC3ndea1JeQpHK7jjhofBp IvGArjZJWnmmqeCIDkw8Us nyyeKF3rR8Ghp7G0fV6ieS RvMQBduKWwRlJyRQUlje8q yGCeYImza7GjHRQ5wvD2aY KhkHTfSFQiUA42Honmg6Zv NttfPTS4HOXvaiSee5Upx8 fuNcQndyBhV1fzX7SnAKCq YYMaTLSxSvApzzMpc8Pot8 VdcKWebOn5k0gwJSKxWPDi rLrtj2yiSQH5LVQvJ4R4kC Cue3ziZKpzUULyjJL5uppr LUwkCXEetxC8wjgpPVhlQV YphBD7kzfgBSlbJHIqCrR9 dqaeVDybYEYgCVY9WIfkd9 80NLV6XMqgUfrnZOpkITYk bmNvbnRccGduZGVjXHBsYW luXHBsYWluXGYwXGZzMjRc cBnwhOpnvT2oZiJdCdIoHW ycQM4yAPVrY4xqeHEyKECn PGOqX6mmMhJhgS6qtLnxUP ufprCySZo8ZFD7KDTrtg8= CLINICAL DATA (test l7muaHZxKJMgxUKiVcBeEU code = 3355) BiVVOds1qhVWMzxOOtLeYv MzNcZnRuYmpcdWMxXGRlZm Cne5oau919tOTbv7okOFWn YxF8bYPwNSArmFNuP237o6 fru1lmcuHveON2KGQuBYL2 QBsphlOwsyA0GJzpcUUdZn E3YZyythBxQBcwbqCvsaZl Bry9INMhF076RUQ1bMcak3 swXSO3ZGXoCXQxTzImYh9j gNCaM725LLPqHGKBJMCdyR h5RZZkzuToaqFgrGUOg387 A302n4mpTVFfiwGpqJxMhr rco4afP150FQZndZUdyfSx DsPlRQWaoZKftUS2RLVpYR 2tirsbClEmWP2gsmouEbFk JJ4aoog3JgOhWH7ssaqsGp JaQAtkVHCwdunaCVKab7Vs ohypEA2fR3Vfu1Q3tN2byO IoWGQbaOXaWjYdBSLlpb2x sWRtKHira9LpUIW7alI4jP GccJYrLBAeGA38Qmxls8Gr ZucmUCC5FBWqymKkk6Xdg4 kjNwGvrhYzX2xvX3TiSHBi JFNkKIVhHyMkidSgp1Gry0 PxvZRjgWe2h0rqZSCkBQPi nJnyp3uvIBW4RACwA6R7qV Rec5ihADkbOSAzbRB4fasz FKovKWMhdyY7lkqcQYduMS PeoTV4cgcuFIfrMNIaVzG3 zgsmXXqmRXFgLJD8UOyjs0 83JBY8TRxuHwspLGocYELu bmNvbnRccGduZGVjXHBsYW luXHBsYWluXGYwXGZzMjRc eUcgyXpgjV5eIoVxSqPjPJ vmEA0dXILtS0kftWDkMQRg OPFlO5fjLcHhpU3ilQajAO pzioYkCBTuP5o8UMZwRUnt w6Ykegclt0XauQg7ZLRdV9 BnQ7EpQHRttr3= SPECIMEN SOURCE (test h9lvgSGuRKRnzJDmRxXuXM code = 3377) XfKWHlv4soZWIidLAnJdIt MzNcZnRuYmpcdWMxXGRlZm Bpw2srq303iIWmb3ucFXVx LeA0kADtOHLssJCaM176l4 jxw2ijoyFuwJT5OOAyPAZ9 XYnpojAotyD8OWrewVCmQl G3COfxzaMwOQgkqpWupsCy Bhv4YVBoN476RWV0uRgus0 ifRDS1DAFqYEJvRqDnZn0i gFZgK691GDFlRHTMIGRhcW v9TQAebjMrvbQqvHMPc951 G785x5cuXIHtuiCitAkHkh xyk7wdH358ANAqsROewoYu FlHgQPHjeCLmoOO6YOYnFD 5pcurmPbRcKI4woemmOfYo TA7umck7LwMgFQ1imoipKj HrWXirZZImyxhgFDGih4Dt jtmoOI9fY5Izn6A4sR8xdF KeGRMtxYCoCkXzOYJazz8o oYXiIUfmh0CjPNZ3spM4wP FonHWlMQEjUA49Bicpe6Cd MurqTGZ7DWSxsrYav6Nae3 wcRdFsbpTpE9sdC2WbFYIb RIFuJNQsHeCsebJxu8Tni9 IsnTKemFz8t0keADHeJCEa mOjvu8xsJMM1QCIkM4W8kL Gaj2moVJvoQMLxgEY9dzvf NNsuRUMjvmM5zmwlPJxtNW RppIB9nppnSWmhLEVhPvJ2 iwpzFXytIIQwWSP0KQnkl9 60AAE1SWvkKfbrRZvfEYXq bmNvbnRccGduZGVjXHBsYW luXHBsYWluXGYwXGZzMjRc cNbawUzntR7nMiZvBhBcDD leUR8pZAKyY4mqpZRwFMNy MXFbJ9idWlMbhY5jsRerXS lsifKkRFWKAomZY70XDYvm RkxVSURccGFyfQ== GROSS DESCRIPTION (test f6qemEKoXOYufODsCtQeIK code = 3366) FsSYJwp9ztYYXtrTDtJpPc MzNcZnRuYmpcdWMxXGRlZm Jfo1vbm547kKAgx4soRSQg GkF7eNFfNOEmoOInX484XX FxMOrvw4dya9GbUIClrKWh x1P4DEULpwlndEs0sHveS8 6af7U4TwkfA2mmXHEpJJBu M5ArZF9tLDCvXge4AWA2GD C7JYDhSGPbD0OcIZ5fXJQk bYVqLRu7w6fmeDthCBFbON D2m1bnGWnuqmZvYB3bgm3t xId7g1xrtuOqDPSwZKZteG EDGAIkC3XnhWbsUr1xxRs4 jKjcHmeeQJO9Kva1ML3ihj 55nka2vRvrYBTrpmvtRxN2 WQczIVNdidwdSIf0BWqpRE JnbDcyMFxtYXJncjcyMFxt YXJndDcyMFxtYXJnYjcyMF rlDJVaDYG1VVnni300OUZ4 JSjde8zou9wffOPqHyb8AW CfTjEbInjvRLpmo6Dxq9qa SCAuau1kIAK8jQAgaXkag2 V9nQRbAYSgdZQvteKhJQEn UkA8QQfnOI6cpb33KOBvWU T6hp1edBQimPozlqOjhRHl MOgvO7QnAJTrp704QXNpH2 XdRQZfz6Z6fyRdHlZsYHMo bQX3lvU4ANEdISd6dQExlu T0uhEtzIJiB1nupC38HsTm aCGwP9QsbS26BcNshOZjE1 NsfR52KnZmoHWuB2NfvC83 TaEwpEVjNQYwkSXfRf6ppG WleAOgn7LfpWAsEVzvZ20z e140KIEozxXpX7zukEGtvs ilgCZfkekhBRojccB4TKJx XHBsYWluXGYxXGZzMjJcbG FuZzEwMzNcaGljaFxmMVxk JsPeWHHoEMcmR4sxTeAyKc HtHuJgYP2jtzM8OUxbg7my Bgm3qJC7AIFdZ1m4m5YtyT 6aMUkav2LsGJ0vkKpiKNHj ZWNpbWVuIGZvciBjZWxsIG Jea8CpWXooKLTnR89ypVXj uRKjFuSdQCN0PoMojWKvYZ AtV0KqdwBvUsCdIGZ2GyVc cGFyfQ== MICROSCOPIC DESCRIPTION x4anjCGqSGVmnFGiGuUaBK (test code = 3371) MuCLGmj1vaXXAocCSvJaBd MzNcZnRuYmpcdWMxXGRlZm Fdu6zqi773tRVtb4msEBPe TwH3wMDxOTUseCLdX258c8 ske0kdydYhkYD4BIIyGTS9 ZGiprqEbfsK6UHgsxEMkDm M2NAawcyQrFZyyqmQwbtGe Jfv1BIThN300LYR4mJfhc8 jfIGM0WXZjKDMfYyXnMk3c zOItT703VBKaKREIIEQuqE p7PZUilhSuhnQrrBQHd774 U772x1hiBFMeveLiuAaGvh ooi0fwC747QBBtmRJywrXu DqTjOANlqATwvRU9OOJzTD 2ayskqFsExIF7kxykyKtLd TR6zknd2CzUyUP5nlcupEt XbEQtqYOIyvkfePVZqz4Ig goztWJ1mZ6Cbv0K5jZ0jwM ZiGELswJBrVpIbXDZxbz1o pIChOWjhv6NcQZF2cmQ2wU OfoELrNYIkMR91Ukwxp2Yu HskuQCZ4LKVvwfPyb2Ywo6 xpWqIejsRuJ4ojW2UvYQVd CLTmGJSjZwStjqUse7Jam0 FquGCcbEl6m2dbLRQfQBYm kZvxy3lbLVK8ZBDlS9M6wD Yvu3pdOPqjAGVbeBI3qcfa UZewNEZvbeD7njacJSntVO KsoOV7jyltWYnpHKRoVaM9 olxmUZvmPAEdIPO3WHuhi7 10GWV7CHpcGxxrJDodVFZv bmNvbnRccGduZGVjXHBsYW luXHBsYWluXGYwXGZzMjRc oQtkeXhuaK3mVkWaCrMeNN pgGJ8lAPPzJ1xblQYjBFId DUUfA0mjXtIwfC9ohHfnUT drruAbDPAraqIbvz3mYU2f cGFyfQ== STATEMENT OF ADEQUACY Satisfactory (test code = 2757) Gross assessment was [facility] performed at (test code [facility], = 2777) Department of Pathology, [address] [place] [address], Technical component was [facility] performed at (test code [facility], = 2778) Department of Pathology, [address] [place] [address], Professional component [facility] was performed at ([facility], code = 2779) Department of Pathology, [address] [place] [address], [facility]2020-[facility]-08 16:58:00Medical Cytology Report Case: [id number] Aut horizing Provider: Peggy Robb MD Collected: 11/11/2019 08:21 AM Ordering Location: [facility] Radiology Main Received: 11/15/2019 09:37 AM Pathologist: Alberto Caba MD Specimen: Peritoneal Fluid PERITONEAL FLUID (CYTOSPINS): - NEGATIVE FOR MALIGNANCY FEW LYMPHOCYTES PRESENT Signing Pathologist Direct Phone Line: [phone] signed by Alberto Caba MD on 11/15/2019 at 4:58 [id number], history of liver cancerPERITONEAL FLUID3 mls yellow fluid; 4 cytospins (not enough specimen for cell block)Collected: [id number]: [id number].[facility], Department of Pathology, [address] [place] [address], [facility], Department of Pathology, [address] [place] [address], [facility], Department of Pathology, [address] [place] [address], K/S, [id number] 17:07:00Referring: Dr. Najma Sultanainister 200 mL of albumin 25% (50 grams) IV x1 after paracentesis if 3 or more liters removed.Send ascitic fluid for cell count and differential.Labs to be ordered:->Other (please add comment)cell count and diffReason for Exam:->hcc,ascitisFINAL REPORT Ultrasound guided paracentesis Clinical History: Ascites. Sedation: None. Forge Heater: Elaine Blake PA-C Supervising Physician: Nani Clark MD Cold Meat Chef: None. Estimated Blood Loss: < 1 mL. [...] anesthesia was achieved with lidocaine, a 5 Italian one-step catheter was advanced into the peritoneal cavity under ultrasound guidance. After completion of drainage, the catheter was removed. There was no evidence of complication. Impression:Successful ultrasound guided paracentesis. Signed: Nani Reed Verified Date/Time: 11/11/2019 17:07:03 Reading Location: [address] Ultrasound Reading Room BODY FLUID CELL [...] FOLLOW UP.U/S, PARACENTESIS 2019-11-01 16:36:00Referring: Dr. Najma Sultanainister 200 mL of albumin 25% (50 grams) IV x1 after paracentesis if 3 or more liters removed.Send ascitic fluid for cell count and differential.Labs to be ordered:->Other (please add comment)cell count and diffReason for Exam:->hcc,ascitisFINAL REPORT Ultrasound guided paracentesis. Clinical History: Ascites. Sedat ion: None. Forge Heater: Joellen Cuellar PA-C Cold Meat Chef: None. Estimated Blood Loss: < 1 cc. [...] Impression:Succ essful ultrasound guided paracentesis. Signed: Roger Manningort Verified Date/Time: 11/01/201916:36:59 Reading Location: [address] Ultrasound Reading Room FLUID CELL COUNT WITH [id number] 12:07:00 Test Item Value Reference Range Interpretation [...] EDTA Tube (test code = 2873) U/S, [id number] 17:27:00Referring: Dr. Najma Sultanainister 200 mL of albumin 25% (50 grams) IV x1 after paracentesis if 3 or more liters removed.Send ascitic fluid for cell count and differential.Labs to be ordered:->Other (please add comment)cell count and diffReason for Exam:->hcc,ascitisFINAL REPORT Ultrasound guided paracentesis Clinical History: Ascites. Sedation: None. Forge Heater: Elaine Blake PA-C Supervising Physician: Nani Clark MD Cold Meat Chef: None. Estimated Blood Loss: < 1 mL. [...] anesthesia was achieved with lidocaine, a 5 Italian one-step catheter was advanced into the peritoneal cavity under ultrasound guidance. After completion of drainage, the catheter was removed. There was no evidence of complication. Impression:Successful ultrasound guided paracentesis. Signed: Nani Reed MDReport Verified Date/Time: 10/28/2019 17:27:59 Reading Location: [address] Ultrasound Reading Room BODY FLUID CELL [...] (BEAKER) EDTA Tube (test code = 2873) [id number] 12:48:00 Test Item Value Reference Range Interpretation Comments Protime (test code = 15.2 11.9- 14.2 H 5902-2) seconds INR (test code = 1.23 <=5.90 6301-6) PTT (test code = 35.1 22.5- 36.0 78204-9) seconds JEFF (test code = JEFF) Effective 08/04/2018: PT Reference Range ChangeNew: 11.9-14.2 Previous: 11.7-14.7 RECOMMENDED COUMADIN/WARFARIN INR THERAPY RANGESSTANDARD DOSE: 2.0-3.0 Includes: PROPHYLAXIS for venous thrombosis, systemic embolization; TREATMENT for venous thrombosis and/or pulmonary embolus.HIGH RISK: Target INR is 2.5-3.5 for patients wiht mechanical heart valves. Lab Interpretation Abnormal (test code = 70113-1) [facility] HospitalPT/[id number] 12:48:00 Test Item Value Reference Range Interpretation [...] mechanical heart valves.CBC W/PLT COUNT & AUTO [id number] 12:34:00 Test Item Value Reference Range Interpretation [...] (BEAKER) (test code = 2801) MR, ABDOMEN, [id number] 19:21:00Referring: Dr. Najma Robledo Abdominal VesselsFINAL REPORT [...] artifacts. No main pancreatic ductal dilation. Signed: Jennifer NeelyMDReport Verified Date/Time: 10/07/2019 19:21:45 Reading Location: [address] Radiology Reading Room BONE AND/OR JOINT IMAGING, WHOLE [id number] 14:24:00Referring: Dr. Najma BroderickFINAL REPORT PROCEDURE: BONE SCAN, WHOLE BODY CPT CODE: 67558 INDICATION: Hepatocellular carcinoma, pretransplant evaluation for liver [...] Dove Verified Date/Time: 10/07/2019 14:24:47 Reading Location: [address] Reading Room NM bone scan whole [id number] 14:24:00Interface, External Ris In - 10/07/2019 2:26 PM CDTFINAL REPORT PROCEDURE: BONE SCAN, WHOLE BODY CPT CODE: 38283 INDICATION: Hepatocellular carcinoma, pretransplant evaluation for liver [...] 10/07/2019, bone scan 02/11/2019. Signed: Afua Dove MDReport Verified Date/Time: 10/07/2019 14:24:47 Reading Location: [address] Reading [facility] (AFP), TUMOR [id number] 13:26:00 Test Item Value Reference Range Interpretation Comments ALPHA-FETOPROTEIN (BEAKER) (test 6.1 ng/mL <10.0 code = 1094) Belt Operator ID - NTPHEPATIC FUNCTION [id number] 12:46:00 Test Item Value Reference Range Interpretation [...] (test code = 25 U/L 6-55 347) Belt Operator ID - NTPBASIC METABOLIC [id number] 12:46:00 Test Item Value Reference Range Interpretation [...] S NOT APPLICABLE FOR DIALYSIS PATIEN TS. Belt Operator ID - NTPCBC W/PLT COUNT & AUTO [id number] 12:27:00 Test Item Value Reference Range Interpretation [...] (test code = 2801) CT, CHEST, WITHOUT [id number] 11:39:00Referring: Dr. Najma BroderickFINAL REPORT CT of [...] metastatic disease in the chest. Signed: [facility] Verified Date/Time: 10/07/2019 11:39:52 Reading Location: [facility] B1 C013Y CT Body Reading Room TUMOR LOCALIZATION, [id number] 16:06:00 Referring: Dr. Najma Broderikc Reason for Exam:->HCC,CIRRHOSISFINAL REPORT PROCEDURE: TRACER DISTRIBUTION STUDY - SPECT ([facility]) CPT CODE: 11737 CLINICAL INDICATION: Hepatocellular carcinoma PROTOCOL: 35.5 mCi [...] Harrison Verified Date/Time: 08/12/2019 16:06:26 Reading Location: [place] [address] Nuc Med Reading Room NM tumor localization [id number] 16:06:00Interface, External Ris In - 08/12/2019 4:08 PM CDTFINAL REPORT PROCEDURE: TRACER DISTRIBUTION STUDY - SPECT ([employer]) CPT CODE: 44087 CLINICAL INDICATION: Hepatocellular carcinoma PROTOCOL: 35.5 mCi [...] Harrison Verified Date/Time: 08/12/2019 16:06:26 Reading Location: [address] Nuc Med Reading Room [facility], INTRA-ARTERIAL PARTIC [id number] 16:19:00Referring: Dr. Najma Broderick Reason for Exam:->HCC,CIRRHOSISFINAL REPORT PROCEDURE: Y-90 microsphere therapy (SIR-Spheres) CPT CODE: 97061 CLINICAL INDICATION: Hepatocellular carcinoma PROTOCOL:35.5 mCi of a planned 37 mCi dosage of Y-90 labeled microspheres (SIR-Spheres) was administered by the nuclear medicine physician to the right lobe of the liver via a hepatic artery catheter placed by the interventional radiologist. IMPRESSION: Y-90 microsphere therapy Signed: Gerry Harrison Verified Date/Time: 08/11/2019 16:19:17 Reading Location: [facility] 3rd Flr P327B Nuc Med Reading Room NM Y90 MICROPSHERES THERAPY 2019-08-11 16:19:00Interface, External Ris In - 08/11/2019 4:21 PM CDTFINAL REPORT PROCEDURE: Y-90 microsphere therapy (SIR-Spheres) CPT CODE: 16088 CLINICAL INDICATION: Hepatocellular carcinoma PROTOCOL: 35.5 mCi of a planned 37 mCi dosage of Y-90 labeled microspheres (SIR-Spheres) was administered by the nuclear medicine physician to the right lobe of the liver via a hepatic artery catheter placed by the interventional radiologist. IMPRESSION: Y-90 microsphere therapy Signed: Gerry Harrison MDReport Verified Date/Time: 08/11/2019 16:19:17 [address] Location[address] Nuc Med Reading Room [facility] TUMOR LOCALIZATION, MULTI [id number] 16:15:00Referring: Dr. Najma Broderick Reason for Exam:->HCC,CIRRHOSISFINAL REPORT PROCEDURE: TRACER DISTRIBUTION STUDY, WHOLE BODY with SPECT CPT CODE: 79598, 67278 CLINICAL INDICATION: Hepatocellular carcinoma PROTOCOL: 2.7 mCi [...] an acceptable range for therapy. Signed: Gerry Harrisonort Verified Date/Time: 08/11/2019 16:15:18 Reading Location: [address] Nuc Med Reading Room NM tumor localization [id number] 16:15:00Interface, External Ris In - 08/11/2019 4:17 PM CDTFINAL REPORT PROCEDURE: TRACER DISTRIBUTION STUDY, WHOLE BODY with SPECT CPT CODE: 10013, 08025 CLINICAL INDICATION: Hepatocellular carcinoma PROTOCOL: 2.7 mCi [...] acceptable range for therapy. Signed: Gerry Harrison MDRcary Verified Date/Time: 08/11/2019 16:15:18 Reading Location: [address] Nuc Med Reading Room [facility] HospitalANG, EMBOLIZATION, EXTENSIVE - [id number] 15:38:00Referring: Dr. Najma Dominguez TACEReason for Exam:->HCC,CIRRHOSISFINAL [...] combined dictation for the mapping and treatment. Forge Heater: Randy Radford M.D. Cold Meat Chef: Alex Ospina Modality: Sonography and fluoroscopy. DOSE [...] fluoroscopic guidance. Over the wire a 5 Italian vascular sheath was placed. The sheath was connected to a heparinized saline drip. Over the wire, a 5 Italian reverse curve catheter was placed. This was [...] MDReport Verified Date/Time: 08/11/2019 15:38:16 Reading Location: [place] [address] Angio Body Reading Room ANG, VISCERAL [id number] 15:38:00Referring: Dr. Najma Parrish for Exam:->HCC,CIRRHOSISFINAL REPORT [...] combined dictation for the mapping and treatment. Forge Heater: Randy Radford M.D. Cold Meat Chef: Alex Ospina Modality: Sonography and fluoroscopy. DOSE [...] fluoroscopic guidance. Over the wire a 5 Italian vascular sheath was placed. The sheath was connected to a heparinized saline drip. Over the wire, a 5 Italian reverse curve catheter was placed. This was [...] MDReport Verified Date/Time: 08/11/2019 15:38:16 Reading Location: [place] [address] Angio Body Reading Room IR Visceral [id number] 15:38:00Interface, External Ris In - 08/11/2019 3:40 [...] combined dictation for the mapping and treatment. Forge Heater: Randy Radford M.D. Cold Meat Chef: Alex Ospina Modality: Sonography and fluoroscopy. DOSE [...] fluoroscopic guidance. Over the wire a 5 Italian vascular sheath was placed. The sheath was connected to a heparinized saline drip. Over the wire, a 5 Italian reverse curve catheter was placed. This was [...] 99 MAA [facility]. The catheter was then advanced into [...] MDReport Verified Date/Time: 08/11/2019 15:38:16 Reading Location: [place] [id number] Angio Body Reading Room [facility] HospitalIR Embolization [id number] 15:38:00 Interface, External Ris In - 08/11/2019 [...] combined dictation for the mapping and treatment. Forge Heater: Randy Radford M.D. Cold Meat Chef: Alex Ospina Modality: Sonography and fluoroscopy. DOSE [...] fluoroscopic guidance. Over the wire a 5 Italian vascular sheath was placed. The sheath was connected to a heparinized saline drip. Over the wire, a 5 Italian reverse curve catheter was placed. This was [...] 99 MAA was injected [facility]. The catheter was then advanced into [...] the care of your patient. Signed: Randy Radfordepmanuel Verified Date/Time: 08/11/2019 15:38:16 Reading Locat ion: [facility] B1 P048 Angio Body Reading Room [facility] PROTHROMBIN TIME/[id number] 08:18:00 Test Item Value Reference Range Interpretation [...] INR is2.5-3.5 for patients wiht mechanical heart valves.[id number] 08:18:00 Test Item Value Reference Range Interpretation Comments PARTIAL THROMBOPLASTIN TIME 33.0 seconds 22.5-36.0 (BEAKER) (test code = 760) CBC W/PLT COUNT & AUTO [id number] 08:06:00 Test Item Value Reference Range Interpretation [...] PERCENT (BEAKER) (test code = 2801) Bilirubin, [id number] 08:05:00 Test Item Value Reference Range Interpretation Comments Bilirubin, Direct (test 0.3 mg/dL 0.1-0.5 code = 1968-7) JEFF (test code = JEFF) Belt Operator ID - AAHAMID Lab Interpretation (test Normal code = 10600-3) [facility] HospitalCOMPREHENSIVE METABOLIC [id number] 08:05:00 Test Item Value Reference Range Interpretation [...] S NOT APPLICABLE FOR DIALYSIS PATIEN TS. Belt Operator ID - AAHAMIDBILIRUBIN, [id number] 08:05:00 Test Item Value Reference Range Interpretation Comments BILIRUBIN DIRECT (BEAKER) (test 0.3 mg/dL 0.1-0.5 code = 706) Belt Operator ID - AAHAMIDANG, VISCERAL [id number] 09:26:00Referring: Dr. Najma Parrish for Exam:->HCC,HCV,CIRRHOSISFINAL REPORT [...] chemoembolization. Y 90 therapy is being considered. Forge Heater: Randy Radford M.D. Cold Meat Chef: Alex Boss Modality: Sonography and fluoroscopy DOSE [...] local infiltration Medicines: Not applicable Contrast medium: Sfuxre214, 115 cc. Estimated blood loss: < 5 [...] fluoroscopic guidance. Over the wire a 5 Italian vascular sheath was placed. The sheath was connected to a heparinized saline drip. Over the wire, a 5 Italian reverse curve catheter was placed. This was [...] lobar. Please note that after injection of fdcrltgekq75 MAA the microcatheter was noted to have [...] MDReport Verified Date/Time: 07/25/2019 09:26:06 Reading Location: [place] [address] Angio Body Reading Room Electronicallysigned by: RANDY RADFORD MD on 07/25/2019 09:26 AMTUMOR LOCALIZATION, [id number] 15:28:00Referring: Dr. Najma Brodreick Reason for Exam:->HCC,HCV,CIRRHOSISFINAL REPORT PROCEDURE: TRACER DISTRIBUTION STUDY, WHOLE BODY with SPECT CPT CODE: 45737, 51411 CLINICAL INDICATION: Hepatocellular carcinoma PROTOCOL: A total [...] MDReport Verified Date/Time: 07/15/2019 15:28:14 Reading Location: [address] Reading Room COMPREHENSIVE METABOLIC [id number] 10:25:00 Test Item Value Reference Range Interpretation [...] S NOT APPLICABLE FOR DIALYSIS PATIEN TS. Belt Operator ID - NTPBILIRUBIN, [id number] 10:25:00 Test Item Value Reference Range Interpretation Comments BILIRUBIN DIRECT (BEAKER) (test 0.3 mg/dL 0.1-0.5 code = 706) Belt Operator ID - NTPCBC W/PLT COUNT & AUTO [id number] 10:12:00 Test Item Value Reference Range Interpretation [...] 0-1 PERCENT (BEAKER) (test code = 2801) [id number] 10:05:00 Test Item Value Reference Range Interpretation Comments PARTIAL THROMBOPLASTIN TIME 33.9 seconds 22.5-36.0 (BEAKER) (test code = 760) PROTHROMBIN TIME/[id number] 09:59:00 Test Item Value Reference Range Interpretation [...] for patients wiht mechanical heart valves.MR, ABDOMEN, [id number] 13:08:00 Referring: Dr. Najma Robledo Abdominal VesselsFINAL [...] MDReport Verified Date/Time: 05/27/2019 13:08:16 Reading Location: [facility] Imaging Reading Room - [place] [address] ALPHA FETOPROTEIN (AFP), TUMOR MARKER 2019-05-27 12:15:00 Test Item Value Reference Range Interpretation Comments ALPHA-FETOPROTEIN (BEAKER) (test 16.8 ng/mL <10.0 H code = 1094) Belt Operator ID - NTPCT, CHEST, WITHOUT [id number] 11:55:00Referring: Dr. Najma Underwood REPORT CT OF [...] MDReport Verified Date/Time: 05/27/2019 11:55:12 Reading Location: [address] Radiology Reading Room HEPATIC FUNCTION [id number] 11:53:00 Test Item Value Reference Range Interpretation [...] (test code = 17 U/L 6-55 347) Belt Operator ID - NTPBASIC METABOLIC [id number] 11:53:00 Test Item Value Reference Range Interpretation [...] S NOT APPLICABLE FOR DIALYSIS PATIEN TS. Belt Operator ID - NTPPROTHROMBIN TIME/[id number] 11:38:00 Test Item Value Reference Range Interpretation [...] mechanical heart valves.CBC W/PLT COUNT & AUTO [id number] 11:31:00 Test Item Value Reference Range Interpretation [...] 0-1 PERCENT (BEAKER) (test code = 2801) [id number] 10:08:00 Test Item Value Reference Range Interpretation Comments POC-Creatinine (test 0.8 mg/dL 0.6-1.3 : TESTE D AT [facility] 67 code = 1859) [facility], [address]: Belt Operator/Techni gianluca ID = [id number] for Eirv an-Jay, Mee POC-EGFR (test code 72 mL/min/1.73M2 = 1860) [facility] HospitalPOCT-[id number] 10:08:00 Test Item Value Reference Range Interpretation Comments POC-CREATININE 0.8 mg/dL 0.6-1.3 : TESTED AT [facility] (BEAKER) (test [address] [place] [address] code = 1859) [place], [address]: Belt Operator/Techni gianluca ID = [id number] for Eirvan-Jay, S heila POC-EGFR (BEAKER) 72 mL/min/1.73M2 (test code = 1860) CT, ABDOMEN, WITHOUT [id number] 19:39:00Referring: Dr. Najma Amos be performed at [facility] in CT department.Anesthesia:- >NonePlease specify [...] MDReport Verified Date/Time: 04/15/2019 19:39:35 Reading Location: [facility] B1 C013Y CT Body Reading Room Electronicallysigned by: JOSE D PICHARDO MD on 04/15/2019 07:39 PMCT abdomen without IV [id number] 19:39:00Interface, External Ris In - 04/15/2019 7:41 [...] MDReport Verified Date/Time: 04/15/2019 19:39:35 Reading Location: [address] Body Reading [facility]TENS[facility] - [id number] 16:59:00Referring: Dr. Najma Dominguez TACEReason for Exam:->HCC,hcv,cirrhosisFINAL REPORT Procedure: Transarterial chemoembolization of the liver. History: Liver cirrhosis, hepatitis C, hepatocellularcarcinoma, multifocal, status post treatment the right lobe of the liver on August 30, 2018. Follow-upMRI on 02/11/2019 was discussed in the tumor board and showed active disease in the segment three andfour of the liver. A TACE was recommended. Forge Heater: Randy Radford M.D. Cold Meat Chef: Alex Dickerson Modality: Sonography and fluoroscopy. DOSE [...] standard exchanges. Over the wire a 5 Italian vascular sheath was placed. The sheath was connected to a heparinized saline drip. Over the wire, a 5 Italian reverse curve catheter was placed. This was [...] MDReport Verified Date/Time: 04/15/2019 16:59:24 Reading Location: [place] [address] Angio Body Reading Room Insert peripheral [id number] 13:11:01[facility]15/2019 1:17 PM Interventional Radiology Post Procedure Note PROCEDURE:TACE INDICATION/ PRE-OP DIAGNOSIS: HCC. POST-OP DIAGNOSIS: Same. IMPLANT: Doxorubicin infused 100mg Oncozene RADIOLOGIST: Dr. Radford EDUCATION DEPARTMENT REGISTRAR: Tuan EBL: < 5 cc. SPECIMEN: None CONSCIOUS SEDATION: 1 mg Versed, 50 microgram Fentanyl intravenously. APPROACH: R DIET CLERK. PRELIMINARY FINDINGS: Left hepatic lobe tumor blush s/p LHA injection of doxorubicin infused oncozenes. COMPLICATIONS: None. INSTRUCTIONS: Flat bedrest and restricted RLE movement for 3 hours, d/c home in 6 hours. *Preliminary Findings Only. Final Report to Follow Willis Dickreson M.D.Interventional Radiology Fellow, PGY- 1:11 [facility] HospitalCOMPREHENSIVE METABOLIC [id number] 09:22:00 Test Item Value Reference Range Interpretation [...] S NOT APPLICABLE FOR DIALYSIS PATIEN TS. Belt Operator ID - AAMIR [id number] 09:06:00 Test Item Value Reference Range Interpretation Comments PARTIAL THROMBOPLASTIN TIME 31.1 seconds 22.5-36.0 (BEAKER) (test code = 760) PROTHROMBIN TIME/[id number] 09:04:00 Test Item Value Reference Range Interpretation [...] mechanical heart valves.CBC W/PLT COUNT & AUTO [id number] 08:54:00 Test Item Value Reference Range Interpretation [...] (test code = 2801) CT, CHEST, WITHOUT [id number] 15:05:00Referring: Dr. Najma Underwood REPORT TECHNIQUE: CT [...] MDReport Verified Date/Time: 02/23/2019 15:05:09 Reading Location: [address] Radiology Reading Room MR, ABDOMEN, [id number] 15:59:00Referring: Dr. Najma Robledo Abdominal VesselsFINAL REPORT [...] are again noted.3. Cholelithiasis. Signed: Reynold Greene MDReport Verified Date/Time: 02/11/2019 15:59:27 Reading Location: [address] RadiologyReading Room BONE AND/OR JOINT IMAGING, WHOLE [id number] 14:35:00Referring: Dr. Najma Broderick FINAL REPORT PROCEDURE: BONE SCAN, WHOLE BODY CPT CODE: 28549 INDICATION: Hepatocellular carcinoma PROTOCOL: 21.4 mCi of [...] CT chest on 11/05/2018. Signed: Afua Dunham rdeport Verified Date/Time: 02/11/2019 14:35:45 Reading Location: [address] Reading Room ALPHA FETOPROTEIN (AFP), TUMOR MARKER 2019-02-11 11:40:00 Test Item Value Reference Range Interpretation Comments ALPHA-FETOPROTEIN (BEAKER) (test 6.8 ng/mL <10.0 code = 1094) HEPATIC FUNCTION [id number] 11:01:00 Test Item Value Reference Range Interpretation [...] = 17 U/L 6-55 347) BASIC METABOLIC [id number] 11:01:00 Test Item Value Reference Range Interpretation [...] S NOT APPLICABLE FOR DIALYSIS PATIEN TS. [id number] 10:54:00 Test Item Value Reference Range Interpretation Comments POC-CREATININE 0.7 mg/dL 0.6-1.3 TESTED AT [facility] 6720 (BEAKER) (test [place] code = 8749) [address] POC-EGFR (BEAKER) 84 mL/min/1.73M2 (test code = 1860) CBC W/PLT COUNT & AUTO [id number] 10:47:00 Test Item Value Reference Range Interpretation [...] PERCENT (BEAKER) (test code = 2801) PROTHROMBIN TIME/[id number] 10:42:00 Test Item Value Reference Range Interpretation [...] is2.5-3.5 for patients wiht mechanical heart valves.TISSUE [id number] 11:15:00Surgical Pathology Report Case: [id number] Authorizing Provider: Joe Turpin Collected: 01/06/2019 1420 MD Amanda [facility]ingLocation: [facility] Endoscopy Received: 01/07/2019 0815 Services Pathologist: Sheila Hmailton MD Specimen: Polyp, Colon - Rectosigmoid, TAKEN BY ESD, ON FOAM, EVALUATE MARGINS A. 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 CM - NEGATIVE FOR HIGH-GRADE DYSPLASIA/ MALIGNANCY - MARGINS, FREE OF ADENOMATOUS EPITHELIUM Signing Pathologist Direct Phone Line: [phone] signed by Sheila Hamilton MD on 01/12/2019 at 11:15 [id number] polyp of sigmoid colon Polyp, colon-rectosigmoid, taken [...] .Ink code: Blue-radial margin, black-deep margin.CG/ew Performed.POCT-GLUCOSE [id number] 11:46:00 Test Item Value Reference Range Interpretation Comments POC-GLUCOSE METER 129 mg/dL 70-110 H : TESTED A T [facility] 6720 (BEAKER) (test code = KATEMIRIAM Kidd [facility], 1538) [address]: Belt Operator/Techni gianluca ID = [id number] for SHEEBA BROWN ALPHA FETOPROTEIN (AFP), TUMOR [id number] 12:27:00 Test Item Value Reference Range Interpretation Comments ALPHA-FETOPROTEIN (BEAKER) (test 4.9 ng/mL <10.0 code = 1094) CT, CHEST, WITHOUT [id number] 12:02:00Referring: Dr. Najma BroderickFINAL REPORT TECHNIQUE: CT scan of the chest [...] Pichardo MDReport Verified Date/Time: 11/05/2018 12:02:36 Reading Location:[address] Radiology Reading Room , ABDOMEN, [id number] 11:38:00Referring: Dr. Najma Robledo Abdominal VesselsFINAL REPORT [...] MDReport Verified Date/Time: 11/05/2018 11:38:54 Reading Location: [address] Radiology Reading Room -[id number] 10:06:00 Test Item Value Reference Range Interpretation Comments POC-CREATININE 0.7 mg/dL 0.6-1.3 TESTED AT [facility] 6720 (BEAKER) (test [place] code = 1859) [address] POC-EGFR (BEAKER) 84 mL/min/1.73M2 (test code = 1860) HEPATIC FUNCTION [id number] 10:00:00 Test Item Value Reference Range Interpretation [...] = 16 U/L 6-55 347) BASIC METABOLIC [id number] 10:00:00 Test Item Value Reference Range Interpretation [...] NOT APPLICABLE FOR DIALYSIS PATIEN TS. PROTHROMBIN TIME/[id number] 09:49:00 Test Item Value Reference Range Interpretation [...] mechanical heart valves.CBC W/PLT COUNT & AUTO [id number] 09:40:00 Test Item Value Reference Range Interpretation [...] code = 2801) ANG, EMBOLIZATION, EXTENSIVE - [id number] 17:43:00Referring: Dr. Najma Dominguez TACEReason for Exam:->HCC,HCV,CIRRHOSISFINAL [...] inch guide wire was advanced. A 5 Italian sheath was utilized. A 5 indonesian Alfredo catheter was placed selectively into the celiac axis. A 3 Italian microcatheter was super selectively advanced coaxially into [...] MDReport Verified Date/Time: 08/30/2018 17:43:13 Reading Location: [place] [address] Angio Body Reading Room COMPREHENSIVE METABOLIC [id number] 11:13:00 Test Item Value Reference Range Interpretation [...] NOT APPLICABLE FOR DIALYSIS PATIEN TS. BILIRUBIN, [id number] 11:13:00 Test Item Value Reference Range Interpretation Comments BILIRUBIN DIRECT (BEAKER) (test 0.4 mg/dL 0.1-0.5 code = 706) [id number] 11:07:00 Test Item Value Reference Range Interpretation Comments PARTIAL THROMBOPLASTIN TIME 32.1 seconds 22.5-36.0 (BEAKER) (test code = 760) PROTHROMBIN TIME/[id number] 11:06:00 Test Item Value Reference Range Interpretation [...] mechanical heart valves.CBC W/PLT COUNT & AUTO [id number] 10:54:00 Test Item Value Reference Range Interpretation [...] (BEAKER) (test code = 2801) MR, ABDOMEN, [id number] 10:23:00Referring: Dr. Najma Robledo Abdominal VesselsFINAL REPORT [...] MDReport Verified Date/Time: 07/16/2018 10:23:16 Reading Location: [address] Consult Reading Room HEPATITIS A ANTIBODY, [id number] 08:32:00 Test Item Value Reference Range Interpretation Comments HEPATITIS A IGM ANTIBODY (BEAKER) Nonreactive Nonreactive (test code = 498) ALPHA FETOPROTEIN (AFP), TUMOR [id number] 08:27:00 Test Item Value Reference Range Interpretation Comments ALPHA-FETOPROTEIN (BEAKER) (test 14.2 ng/mL <10.0 H code = 1094) HEPATITIS A ANTIBODY, [id number] 08:27:00 Test Item Value Reference Range Interpretation Comments HEPATITIS A IGG ANTIBODY (BEAKER) Nonreactive Nonreactive (test code = 2797) HEPATIC FUNCTION [id number] 08:08:00 Test Item Value Reference Range Interpretation [...] = 18 U/L 6-55 347) BASIC METABOLIC [id number] 08:08:00 Test Item Value Reference Range Interpretation [...] NOT APPLICABLE FOR DIALYSIS PATIEN TS. PROTHROMBIN TIME/[id number] 08:02:00 Test Item Value Reference Range Interpretation [...] = 2801) BONE AND/OR JOINT IMAGING, WHOLE [id number] 15:39:00Referring: Dr. Najma Underwood REPORT PROCEDURE: BONE SCAN, WHOLE BODY CPT CODE: 13272 INDICATION: Hepatocellular carcinoma, preoperative evaluation for liver [...] radiograph and today's chest CT. Signed: Gerry Harrison MDReport Verified Date/Time: 06/02/2018 15:39:33 Reading Location: [address] Reading [address] CT, CHEST, WITHOUT CONTRAST [...] Kelsey Verified Date/Time: 06/02/2018 11:25:36 Reading Location: [address] Radiology Reading Room RAD, BONE DENSITY [id number] 10:39:00Referring: Dr. Najma Broderick Reason for Exam:->HCC,HCV,CIRRHOSIS,PRE [...] column within normal limits. Signed: Rajesh Kelsey Verified Date/Time: 06/02/2018 10:39:30 Reading Location: [address] Radiology Reading Room [id number] QUANTITATION & [id number] 09:08:00 Test Item Value Reference Range Interpretation Comments [id number]-1-[id number] (QUEST) (test code = 6272855) A-1 ANTITRYP PHENOTYP (QUEST) (test code = 6250418) ANTI-NUCLEAR ANTIBODY (SHARYN)2018-05-29 10:41:00 Test Item Value Reference Range Interpretation Comments ANTI-NUCLEAR ANTIBODY (SHARYN) (BEAKER) Negative Negative (test code = 418) Test performed by IFA method.Test performed by IFA method.HEPATITIS B PCR, [id number] 07:20:00 Test Item Value Reference Range Interpretation Comments HBV RESULT COMPONENT HBV DNA not detected HBV DNA not detected (BEAKER) (test code = 2701) This test uses a Real-Time Polymerase Chain Reaction (RT-PCR) methodology and was performed using [employer]IKE AmpliPrep/KIKE TaqMan HBV Test, v2.0 (H2020, Inc.).Reportable range for this assay is 20 - 170,000,000 IU per mL (1.30 - 8.23 Log IU/mL).MISCELLANEOUS LAB [id number] 08:56:00 Test Item Value Reference Range Interpretation Comments SCAN RESULT (test code = 0056180) HEMOGLOBIN [id number] 10:40:00 Test Item Value Reference Range Interpretation Comments HEMOGLOBIN A1C (BEAKER) (test code = 9.6 % 4.3-6.1 H 368) [id number] 21:06:00 Test Item Value Reference Range Interpretation Comments T4 TOTAL (BEAKER) (test code = 12.8 ug/dL 4.9-11.7 H 895) [id number] 14:28:00 Test Item Value Reference Range Interpretation Comments RPR SCREEN (BEAKER) (test code = Nonreactive Nonreactive 420) MM, DIGITAL, MAMMO, SCREENING, BILATERAL INCLUDING [id number] 13:45:00 Referring: Dr. Najma Jasmineiagnostic workup per radiologist?->YesReason for Exam:->HCC,HCV,CIRRHOSIS,PRE TRANSPLANT EVALMRN#: [id number] - MM, DIGITAL, MAMMO, SCREENING, BILATERAL INCLUDING [...] 2 Benign G0202 RAD, MANDIBLE, MIN 4 [id number] 13:28:00Referring: Dr. Najma Parrish for Exam:->HCC,HCV,CIRRHOSIS,PRE TRANSPLANT EVALFINAL REPORT Mandible dated 05/26/2018 Comment: 4 views of the mandible were s ubmitted for interpretation. Body, angle, and coronoid process of the mandible are intact without fracture. TMJs were obtained bilaterally. No osteolytic lesion or periodontal abscess noted. Impression: Unremarkable mandibular examination. Signed: Su Kern MDReport Verified Date/Time: 05/26/2018 1 3:28:38 Reading Location: [address] Radiology Reading Room FERRITIN 2018-05-26 12:44:00 Test Item Value Reference Range Interpretation Comments FERRITIN (BEAKER) (test code = 361) 20 ng/mL 5-275 HEPATITIS B CORE ANTIBODY, [id number] 11:53:00 Test Item Value Reference Range Interpretation Comments HEPATITIS B CORE TOTAL ANTIBODY Reactive Nonreactive A (BEAKER) (test code = 497) HEPATITIS C [id number] 11:52:00 Test Item Value Reference Range Interpretation Comments HEPATITIS C ANTIBODY (BEAKER) (test Reactive Nonreactive A code = 367) URINALYSIS W/ [id number] 11:39:00 Test Item Value Reference Range Interpretation [...] SOURCE(BEAKER) (test code = 2795) CYTOMEGALOVIRUS ANTIBODY, [id number] 11:31:00 Test Item Value Reference Range Interpretation Comments CYTOMEGALOVIRUS, IGG (BEAKER) Positive Negative, Equivocal A (test code = 3429) CMV IgG Result Interpretation: </= 0.8 Al Negative 0.9-1.0 Al Equivocal >/=1.1 Al PositiveCYTOMEGALOVIRUS ANTIBODY, [id number] 11:31:00 Test Item Value Reference Range Interpretation Comments CYTOMEGALOVIRUS IGM ANTIBODY Negative Negative, Equivocal (BEAKER) (test code = 3437) CMV IgM Result Interpretation: </= 0.8 Al Negative 0.9-1.0 Al Equivocal >/= 1.1 Al PositiveEBV ANTIBODY, [id number] 11:31:00 Test Item Value Reference Range Interpretation [...] Equivocal >/= 1.1 Al PositiveHEPATITIS B SURFACE [id number] 10:20:00 Test Item Value Reference Range Interpretation Comments HEPATITIS B SURFACE ANTIBODY < mIU/mL <8.0 (BEAKER) (test code = 647) [id number] 10:05:00 Test Item Value Reference Range Interpretation Comments THYROID STIMULATING HORMONE 0.11 uIU/mL 0.35-4.94 L (BEAKER) (test code = 772) HEPATITIS B SURFACE [id number] 09:45:00 Test Item Value Reference Range Interpretation Comments HEPATITIS B SURFACE ANTIGEN (2) Nonreactive Nonreactive (BEAKER) (test code = 2585) HEPATITIS B CORE ANTIBODY, [id number] 09:45:00 Test Item Value Reference Range Interpretation Comments HEPATITIS B CORE IGM ANTIBODY Nonreactive Nonreactive (BEAKER) (test code = 645) HEPATITIS A ANTIBODY, [id number] 09:42:00 Test Item Value Reference Range Interpretation Comments HEPATITIS A IGG ANTIBODY (BEAKER) Reactive Nonreactive A (test code = 2797) HIV-1 ANTIGEN WITH HIV-1/2 [id number] 09:42:00 Test Item Value Reference Range Interpretation Comments HIV-1 ANTIGEN WITH HIV 1\\T\\2 Nonreactive Nonreactive ANTIBODY (2) (BEAKER) (test code = 2586) VITAMIN D, [id number] 09:41:00 Test Item Value Reference Range Interpretation Comments VITAMIN D 25-OH (BEAKER) (test 24.9 ng/mL 6.6-49.9 code = 2764) Effective 12/17/2016: Reference Range ChangeNew: 6.6-49.9 ng/mL Previous: 13.0-47.8 ng/mLRecommended Vitamin D Target Range: 30.0-40.0 ng/mL CARCINOEMBRYONIC ANTIGEN (CEA)2018-05-26 09:36:00 Test Item Value Reference Range Interpretation Comments CARCINOEMBRYONIC ANTIGEN (BEAKER) 2.7 ng/mL 0.0-5.0 (test code = 685) ALPHA FETOPROTEIN (AFP), TUMOR [id number] 09:36:00 Test Item Value Reference Range Interpretation Comments ALPHA-FETOPROTEIN (BEAKER) (test 15.8 ng/mL <10.0 H code = 1094) HEPATITIS A ANTIBODY, [id number] 09:36:00 Test Item Value Reference Range Interpretation Comments HEPATITIS A IGM ANTIBODY (BEAKER) Nonreactive Nonreactive (test code = 498) URIC [id number] 09:32:00 Test Item Value Reference Range Interpretation Comments URIC ACID (BEAKER) (test code = 5.0 mg/dL 2.6-7.2 773) [id number] 09:32:00 Test Item Value Reference Range Interpretation Comments MAGNESIUM (BEAKER) (test code = 1.9 mg/dL 1.6-2.6 627) [id number] 09:32:00 Test Item Value Reference Range Interpretation Comments PHOSPHORUS (BEAKER) (test code = 3.6 mg/dL 2.3-4.7 604) COMPREHENSIVE METABOLIC [id number] 09:32:00 Test Item Value Reference Range Interpretation [...] NOT APPLICABLE FOR DIALYSIS PATIEN TS. LIPID [id number] 09:32:00 Test Item Value Reference Range Interpretation [...] Borderline 130-159 High 160-189 Very High >=190BILIRUBIN, [id number] 09:32:00 Test Item Value Reference Range Interpretation Comments BILIRUBIN DIRECT (BEAKER) (test 0.4 mg/dL 0.1-0.5 code = 706) GAMMA GLUTAMYL TRANSFERASE (GGT)2018-05-26 09:32:00 Test Item Value Reference Range Interpretation Comments GAMMA GLUTAMYL TRANSFERASE (BEAKER) 59 U/L 9-64 (test code = 364) BLOOD GAS, [id number] 09:27:00 Test Item Value Reference Range Interpretation [...] (BEAKER) (test code = 1819) 100.0 % [id number] 09:17:00 Test Item Value Reference Range Interpretation [...] % 20-55 L (test code = 2590) [id number] 09:14:00 Test Item Value Reference Range Interpretation Comments ETHANOL (BEAKER) (test code = 400) < mg/dL <=10 CBC W/PLT COUNT & AUTO [id number] 09:06:00 Test Item Value Reference Range Interpretation [...] 0-1 PERCENT (BEAKER) (test code = 2801) [id number] 09:02:00 Test Item Value Reference Range Interpretation Comments FIBRINOGEN LEVEL (BEAKER) (test 349 mg/dl 225-434 code = 658) [id number] 09:02:00 Test Item Value Reference Range Interpretation Comments PARTIAL THROMBOPLASTIN TIME 30.6 seconds 22.5-36.0 (BEAKER) (test code = 760) CALCIUM, [id number] 08:50:00 Test Item Value Reference Range Interpretation Comments CALCIUM IONIZED (BEAKER) (test 1.15 mmol/L 1.12-1.27 code = 698) PH, BLOOD (BEAKER) (test code = 7.34 1810) TISSUE [id number] 09:42:00Surgical Pathology Report Case: [id number] Authorizing Provider: Dennis Manning MD Collected: 04/07/2018 1033 Ordering Location: [facility] [place] Endoscopy Received: 04/07/2018 1616 Services Pathologist: Sheila Hamilton MD Specimen: Biopsy, Gastric, GASTRIC BX A. STOMACH, RANDOM BIOPSIES: - ANTRAL MUCOSA WITH REACTIVE GASTROPATHY AND MILD CHRONIC INACTIVE GASTRITIS - OXYNTIC MUCOSA WITH NO SIGNIFICANT DIAGNOSTIC ABNORMALITY - NEGATIVE FOR HELICOBACTER PYLORI ORGANISMS BY WARTHIN STARRY STAIN - NEGATIVE FOR INTESTINAL METAPLASIA, DYSPLASIA, MALIGNANCY Signing Pathologist Direct Phone Line: [phone] signed by Sheila Hamilton MD on 04/08/2018 at 9:42 [id number] chronic pancreatitis Gastric biopsy The specimen is received in a formalin-filled container labeled with the patient's information and labeled "gastric biopsy" and consists of multiple fragments of harden-pink soft tissue ranging from 0.1 to 0.3 cm, submitted entirely inA1. CG/ew Performed.The interpretation of this case included the use of immunohistochemistry or special stains. Immunohistochemistry technical testing was performed at [facility] and the [facility],Pathology Laboratory where it was developed and [...] to perform high complexity clinical laboratory testing.POCT-GLUCOSE [id number] 10:20:00 Test Item Value Reference Range Interpretation Comments POC-GLUCOSE METER 185 mg/dL 70-110 H TESTED AT [place] [address] ([facility]) (test code = LUCITA Kidd [facility] 1538) [address] HEPATOBILIARY IMAGING W/ [id number] 16:11:00Referring: Dr. Najma Underwood REPORT PROCEDURE: HEPATOBILIARY SCAN with Sincalide Infusion CPT CODE: 51931 INDICATION: Cholelithiasis, worsening abdominal pain PROTOCOL: 5.4 [...] MDReport Verified Date/Time: 03/19/2018 16:11:41 Reading Location: [address] [place] [address] Reading Room HEPATITIS C PCR, [id number] 16:20:00 Test Item Value Reference Range Interpretation Comments HCV RESULT COMPONENT HCV RNA not detected HCV RNA not detected (BEAKER) (test code = 2699) This test uses a Real-Time Polymerase Chain Reaction (RT-PCR) methodology and was performed using [employer]IKE Ampliprep/KIKE TaqMan HCV test kit version 2.0 (H2020, Inc).Reportable range for this assay is 15 - 100,000,000 IU per mL (1.18 - 8.00 Log IU/mL).HEPATITIS B CORE ANTIBODY, TOTAL 2018-03-11 15:21:00 Test Item Value Reference Range Interpretation Comments HEPATITIS B CORE TOTAL ANTIBODY Reactive Nonreactive A (BEAKER) (test code = 497) MR, ABDOMEN, [id number] 15:10:00Referring: Dr. Najma Robledo Abdominal VesselsFINAL REPORT [...] MDReport Verified Date/Time: 03/11/2018 15:10:28 Reading Location: [address] Radiology Reading Room TITIS A ANTIBODY, [id number] 14:13:00 Test Item Value Reference Range Interpretation Comments HEPATITIS A IGG ANTIBODY (BEAKER) Reactive Nonreactive A (test code = 2797) HEPATITIS B SURFACE [id number] 14:13:00 Test Item Value Reference Range Interpretation Comments HEPATITIS B SURFACE ANTIBODY < mIU/mL <8.0 (BEAKER) (test code = 647) HEPATITIS B SURFACE [id number] 13:53:00 Test Item Value Reference Range Interpretation Comments HEPATITIS B SURFACE ANTIGEN (2) Nonreactive Nonreactive (BEAKER) (test code = 2585) HEPATIC FUNCTION [id number] 13:39:00 Test Item Value Reference Range Interpretation [...] = 14 U/L 6-55 347) BASIC METABOLIC [id number] 13:39:00 Test Item Value Reference Range Interpretation [...] NOT APPLICABLE FOR DIALYSIS PATIEN TS. PROTHROMBIN [id number] 13:15:00 Test Item Value Reference Range Interpretation Comments PROTIME (BEAKER) (test code = 13.7 seconds 11.7-14.7 759) INR (BEAKER) (test code = 370) 1.0 <=5.9 RECOMMENDED COUMADIN/WARFARIN INR THERAPY RANGESSTANDARD DOSE: 2.0 - 3.0 Includes: PROPHYLAXIS forvenous thrombosis, systemic embolization; TREATMENT for venous thrombosis and/or pulmonary embolus.HIGH RISK: Target INR is 2.5-3.5 for patients with mechanical heart valves.[id number]-[id number] 13:12:00 Test Item Value Reference Range Interpretation Comments POC-CREATININE 0.7 mg/dL 0.6-1.3 TESTED AT [facility] 6720 (BEAKER) ([facility] [place] = 8833) [address] POC-EGFR (BEAKER) 84 mL/min/1.73M2 (test code = 1860) CBC W/PLT COUNT & AUTO [id number] 13:11:00 Test Item Value Reference Range Interpretation [...] PERCENT (BEAKER) (test code = 2801) URINE [id number] 17:30:00 Test Item Value Reference Range Interpretation [...] glabrat a 10-19,000 col/mL skin floraU/S, ABDOMINAL, [id number] 15:32:00Abdomen limited area? Add comment if clarification [...] MDReport Verified Date/Time: 02/06/2018 15:32:55 Reading Location: [facility] B1 C013[facility] CT Body Reading Room URINALYSIS W/ [id number] 14:28:00 Test Item Value Reference Range Interpretation [...] = 1585) Moderate SOURCE(BEAKER) (test code = 0970) [id number] 13:38:00 Test Item Value Reference Range Interpretation Comments LIPASE (BEAKER) (test code = 749) 22 U/L 8-78 [id number] 13:38:00 Test Item Value Reference Range Interpretation Comments AMYLASE (BEAKER) (test code = 349) 25 U/L 25-125 BASIC METABOLIC [id number] 13:38:00 Test Item Value Reference Range Interpretation [...] APPLICABLE FOR DIALYSIS PATIEN TS. HEPATIC FUNCTION [id number] 13:38:00 Test Item Value Reference Range Interpretation [...] 6-55 347) CBC W/PLT COUNT & AUTO [id number] 13:09:00 Test Item Value Reference Range Interpretation [...]
[2020-01-30 11:19] LABS: Absolute Lymphocytes (CBC) 0.2 K/uL (0.7-4.9); Basophils % 0.5 % (0-1.3); Hematocrit 27.8 % (36.0-45.0); Lymphocytes % 5.2 % (15.3-44.8); Protime INR 1.19; RBC Red Blood Cell Count 3.39 M/uL (3.86-4.86)
--- NOTE | 2020-01-30 11:20 | RAD REPORT ---
EXAM DESCRIPTION: RAD - Chest Single View - 01/30/2020 10:47 am CLINICAL HISTORY: DYSPNEA Chest pain. COMPARISON: Chest Single View dated 05/24/2019; CHEST SINGLE VIEW dated 10/13/2013; CHEST SINGLE VIEW d ated 05/17/2013; CHEST PA AND LAT 2 VIEW dated 05/22/2012 FINDINGS: Portable technique limits examination quality. The lungs are mildly emphysematous but grossly clear. The heart is upper limit of normal in size. No displaced fractures. IMPRESSION: No acute intrathoracic process suspected.
[2020-01-30 11:31] LABS: ALT/SGPT 27 U/L (12-78); AST/SGOT 28 U/L (15-37); Albumin 3.1 g/dL (3.4-5.0); Alkaline Phosphatase 191 U/L (45-117); BUN Blood Urea Nitrogen 21 mg/dL (7-18); Bicarbonate 29 mmol/L (21-32); Bilirubin Direct 1.7 mg/dL (0-0.2); Bilirubin Total 3.8 mg/dL (0.2-1.0); Glucose Level 329 mg/dL (74-106); Lipase 154 U/L (73-393); Magnesium 2.4 mg/dL (1.8-2.4); NT PRO-BNP 241 pg/mL (<125); Potassium 3.5 mmol/L (3.5-5.1); Protein, Total 6.1 g/dL (6.4-8.2); Sodium Level 132 mmol/L (136-145); Troponin (Emerg Dept Use Only) < 0.02 ng/mL (0.0-0.045)
[2020-01-30 11:58] LABS: Blood Morphology Comment NOT SEEN (NOT SEEN); Platelet Estimate DECR; White Blood Cell Scan OK (OK)
[2020-01-30] MEDS ORDERED: FUROSEMIDE 100 MG/10 ML VIAL IV ONE (12:33)
[2020-01-30] MEDS ORDERED: FUROSEMIDE 20 MG/ 2ML VIAL ONE (12:37)
[2020-01-30] MEDS ORDERED: PROMETHAZINE INJ 25 MG/ML AMP ONE ×2 (12:38→14:28)
[2020-01-30] MEDS ORDERED: FUROSEMIDE 40 MG/4 ML VIAL ONE (12:38)
[2020-01-30] MEDS ORDERED: FENTANYL CITR 100 MCG/2 ML ONE (14:36)
--- NOTE | 2020-01-30 14:46 | EDPHYS ---
Physician Documentation [facility] Name: Veronika Carrillo Age: 64 yrs Sex: Female : 1955 Arrival Date: 01/30/2020 Time: 09:49 Bed 5 Private MD: Joseph Mart ED Physician Fabian Yoon HPI: 01/29 11:09 This 64 yrs old Female presents to ER via Ambulatory with complaints of jr8 Nausea, Constipation, Dizziness. 11:09 The patient presents to the emergency department with nausea, that is mild. Onset: The jr8 symptoms/episode began/occurred acutely, 2 day(s) ago. Possible causes: unknown. The symptoms are aggravated by nothing. The symptoms are alleviated by nothing. Associated signs and symptoms: Pertinent positives: constipation, shortness of breath. Severity of symptoms: At their worst the symptoms were mild in the emergency department the symptoms are unchanged. It is unknown whether or not the patient has had similar symptoms in the past. The patient has been recently seen by a physician:. Patient stated that she had her weekly paracentesis this past Thursday. Stated that the entire weekend felt nauseated and had slightly more increase in work of breath when compared to normal. Denies any other symptoms at this time . Historical: - Allergies: 10:00 Sulfa (Sulfonamide Antibiotics); tw2 - Home Meds: 10:11 Tresiba FlexTouch U-100 100 unit/mL (3 mL) subcutaneous inpn 24 units daily [Active]; tw2 pregabalin 75 mg Oral 1 cap daily [Active]; Coreg 3.125 mg Oral tab 1 tab 2 times per day [Active]; escitalopram oxalate 20 mg oral tab 1 tab once daily [Active]; tramadol 50 mg Oral tab 1 tab every 4-6 hours [Active]; omeprazole 40 mg Oral cpDR 1 cap once daily [Active]; Zenpep 40,000-136,000- 218,000 unit oral cpDR 1 cap 3 times per day [Active]; ursodiol 300 mg Oral cap 1 cap daily [Active]; Jardiance 10 mg oral tab 1 tab once daily [Active]; levothyroxine 137 mcg tab 1 tab once daily [Active]; spironolactone 100 mg Oral tab 1 tab 2 times per day [Active]; furosemide 80 mg Oral tab 1 tab once daily [Active]; oxcarbazepine 150 mg oral tab 1 tab am, 2 tabs pm 2 times per day [Active]; Melatonin Oral [Active]; Vitamin D3 oral oral [Active]; - PMHx: 10:00 HEP C; Diabetes - NIDDM; Cyst on pancreas; Cirrhosis; liver cancer; Pancreatitis; tw2 Rheumatoid Arthritis; - PSHx: 10:00 ; hand surgery; tw2 - Immunization history:: Adult Immunizations. - Social history:: Smoking status: . ROS: 11:09 Eyes: Negative for injury, pain, redness, and discharge, ENT: Negative for injury, jr8 pain, and discharge, Neck: Negative for injury, pain, and swelling, Cardiovascular: Negative for chest pain, palpitations, and edema, Back: Negative for injury and pain, MS/Extremity: Negative for injury and deformity, Skin: Negative for injury, rash, and discoloration, Neuro: Negative for headache, weakness, numbness, tingling, and seizure. 11:09 Respiratory: Positive for dyspnea on exertion, shortness of breath, Negative for cough, sputum production, wheezing. 11:09 Abdomen/GI: Positive for nausea, constipation, abdominal distension, Negative for abdominal pain, vomiting, diarrhea. Exam: 13:57 ENT: Nares patent. No nasal discharge, no septal abnormalities noted. Tympanic jr8 membranes are normal and external auditory canals are clear. Oropharynx with no redness, swelling, or masses, exudates, or evidence of obstruction, uvula midline. Mucous membranes moist. Neck: Trachea midline, no thyromegaly or masses palpated, and no cervical lymphadenopathy. Supple, full range of motion without nuchal rigidity, or vertebral point tenderness. No Meningismus. Cardiovascular: Regular rate and rhythm with a normal S1 and S2. No gallops, murmurs, or rubs. Normal PMI, no JVD. No pulse deficits. Respiratory: Lungs have equal breath sounds bilaterally, clear to auscultation and percussion. No rales, rhonchi or wheezes noted. No increased work of breathing, no retractions or nasal flaring. Back: No spinal tenderness. No costovertebral tenderness. Full range of motion. Skin: Warm, dry with normal turgor. Normal color with no rashes, no lesions, and no evidence of cellulitis. MS/ Extremity: Pulses equal, no cyanosis. Neurovascular intact. Full, normal range of motion. Neuro: Awake and alert, GCS 15, oriented to person, place, time, and situation. Cranial nerves II-XII grossly intact. Motor strength 5/5 in all extremities. Sensory grossly intact. Cerebellar exam normal. Normal gait. 13:57 Eyes: Periorbital structures: appear normal, Pupils: equal, round, and reactive to light and accomodation, Extraocular movements: intact throughout, Conjunctiva: normal, Corneas: are normal, Sclera: icterus, is present. 13:57 Abdomen/GI: Inspection: distension, that is moderate, Bowel sounds: active, all quadrants, Palpation: abdomen is soft and non-tender, Indicators: McBurney's point is not tender, Markham's sign is negative, Liver: tenderness, is not appreciated. Vital Signs: 09:56 BP 128 / 61; Pulse 77; Resp 18; Temp 98.5(O); Pulse Ox 100% on R/A; Weight 86.18 kg tw2 (R); Height 5 ft. 4 in. (162.56 cm); Pain 8/10; 10:00 BP 143 / 50; Pulse 81; Resp 18; Pulse Ox 100% on R/A; vg1 10:30 BP 125 / 51; Pulse 71; Resp 18; Pulse Ox 99% on R/A; vg1 11:00 BP 104 / 37; Pulse 72; Resp 18; Pulse Ox 99% on R/A; vg1 11:30 BP 117 / 48; Pulse 74; Resp 18; Pulse Ox 97% on R/A; vg1 11:45 BP 123 / 42; Pulse 77; Resp 14; Pulse Ox 98% on R/A; vg1 12:00 BP 109 / 96; Pulse 78; Resp 14; Pulse Ox 99% on R/A; vg1 12:30 BP 140 / 54 Sitting; Pulse 73; Resp 16; Pulse Ox 100% on R/A; vg1 12:45 BP 146 / 65 Sitting; Pulse 81; Resp 16; Pulse Ox 99% on R/A; vg1 13:02 BP 138 / 59; Pulse 86; Resp 14; Pulse Ox 100% on R/A; vg1 13:30 BP 135 / 70; Pulse 53; Resp 14; Pulse Ox 100% on R/A; vg1 14:00 BP 141 / 83; Pulse 84; Resp 16; Pulse Ox 100% on R/A; vg1 14:30 BP 150 / 61; Pulse 84; Resp 14; Pulse Ox 100% on R/A; vg1 09:56 Body Mass Index 32.61 (86.18 kg, 162.56 cm) tw2 09:56 "8 is my nausea" tw2 MDM: 09:56 Patient medically screened. loren 14:43 Data reviewed: vital signs, nurses notes, lab test result(s), radiologic studies. Data jr8 interpreted: Pulse oximetry: on room air is 100 %. Interpretation: normal. 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 Response to treatment: the patient's symptoms have markedly improved after treatment. 01/29 10:12 Order name: Basic Metabolic Panel; Complete Time: 01/29 10:12 Order name: CBC with Diff; Complete Time: 01/29 10:12 Order name: LFT's; Complete Time: 01/29 10:12 Order name: Magnesium; Complete Time: 01/29 10:12 Order name: NT PRO-BNP; Complete Time: 01/29 10:12 Order name: PT-INR; Complete Time: 01/29 10:12 Order name: Troponin (emerg Dept Use Only); Complete Time: 01/29 10:12 Order name: XRAY Chest (1 view); Complete Time: 11:24 01/29 10:12 Order name: Lipase; Complete Time: 01/29 10:18 Order name: AMMONIA; Complete Time: aa5 01/29 11:27 Order name: CBC Smear Scan; Complete Time: :58 EDWV 01/29 10:12 Order name: EKG; Complete Time: 10:12 01/29 10:12 Order name: Cardiac monitoring; Complete Time: 10:36 jr 11/23 10:12 Order name: EKG - Nurse/Tech; Complete Time: 10:36 01/29 10:12 Order name: IV Saline Lock; Complete Time: :58 01/29 10:12 Order name: Labs collected and sent; Complete Time: :58 01/29 10:12 Order name: O2 Per Protocol; Complete Time: 10:36 01/29 10:12 Order name: O2 Sat Monitoring; Complete Time: :36 Administered Medications: 12:35 Drug: Promethazine 12.5 mg Route: IVP; Site: right hand; vg1 13:00 Follow up: Response: Nausea is decreased vg1 12:40 Drug: Lasix 60 mg Route: IVP; Site: right hand; vg1 13:20 Follow up: Response: No adverse reaction; Other vg1 14:20 Drug: Promethazine 12.5 mg Route: IVP; Site: right wrist; aa5 15:14 Follow up: Response: Nausea is decreased vg1 14:30 Drug: fentaNYL (PF) 25 mcg {Note: RASS 0.} Route: IVP; Site: right wrist; vg1 14:50 Follow up: Response: No adverse reaction; Pain is unchanged, physician notified vg1 Disposition: 01/30 09:25 Co-signature as Attending Physician, Fabian Yoon MD I agree with the assessment and loren plan of care. Disposition: 01/30/20 14:45 Discharged to Home. Impression: Unspecified cirrhosis of liver, Anasarca, Nausea. - Condition is Stable. - Discharge Instructions: Ascites, Nausea, Adult. - Prescriptions for promethazine 25 mg Oral Tablet - take 1 tablet by ORAL route every 6 hours As needed; 20 tablet. - Medication Reconciliation Form, Thank You Letter, Antibiotic Education, Prescription Opioid Use form. - Follow up: Joseph Mart MD; When: 2 - 3 days; Reason: Recheck today's complaints, Continuance of care, Re-evaluation by your physician. - Problem is new. - Symptoms have improved. Signatures: Dispatcher [employer] Fabian Sanders MD MD cha Williams, Irene, RN RN Ana Cordoba RN RN aa5 Delmar Jean PA PA jr8 Mary Hampton RN RN tw2 Fatmata Dixon, RN RN vg1 Corrections: (The following items were deleted from the chart) 01/29 15:11 14:45 01/30/2020 14:45 Discharged to Home. Impression: Unspecified cirrhosis of liver; iw Anasarca; Nausea. Condition is Stable. Forms are Medication Reconciliation Form, Thank You Letter, Antibiotic Education, Prescription Opioid Use. Follow up: Joseph Mart; When: 2 - 3 days; Reason: Recheck today's complaints, Continuance of care, Re-evaluation by your physician. Problem is new. Symptoms have improved. jr8
--- NOTE | 2020-01-30 14:46 | ER ---
Nurse's Notes [facility] Name: Veronika Carrillo Age: 64 yrs Sex: Female : 1955 Arrival Date: 01/30/2020 Time: 09:49 Bed 5 Private MD: Joseph Mart Diagnosis: Unspecified cirrhosis of liver;Anasarca;Nausea Presentation: 01/29 09:56 Chief complaint: Patient states: i have been nauseated since Thursday night, i havent tw2 been sleeping, no BM since Thursday afternoon, and feeling short of breath. Coronavirus screen: Coronavirus screen: nausea, shortness of breath, Client presents with at least one sign or symptom that may indicate coronavirus-19. Standard/surgical mask placed on the client. Ebola Screen: Patient denies travel to an Ebola-affected area in the 21 days before illness onset. Initial Sepsis Screen: Does the patient meet any 2 criteria? No. Patient's initial sepsis screen is negative. Does the patient have a suspected source of infection? No. Patient's initial sepsis screen is negative. Risk Assessment: Do you want to hurt yourself or someone else? Patient reports no desire to harm self or others. Onset of symptoms was January 30, 2020. 09:56 Method Of Arrival: Ambulatory tw2 09:56 Acuity: ADRIEL 3 tw2 Triage Assessment: 09:58 General: Appears in no apparent distress. uncomfortable, Behavior is calm, cooperative, tw2 appropriate for age. General: Reports. Pain:. GI: Abdomen is round distended, Reports nausea. GI: Reports "sandi got ascites, i am on a liver transplant list in [place]". Historical: - Allergies: 10:00 Sulfa (Sulfonamide Antibiotics); tw2 - Home Meds: 10:11 Tresiba FlexTouch U-100 100 unit/mL (3 mL) subcutaneous inpn 24 units daily [Active]; tw2 pregabalin 75 mg Oral 1 cap daily [Active]; Coreg 3.125 mg Oral tab 1 tab 2 times per day [Active]; escitalopram oxalate 20 mg oral tab 1 tab once daily [Active]; tramadol 50 mg Oral tab 1 tab every 4-6 hours [Active]; omeprazole 40 mg Oral cpDR 1 cap once daily [Active]; Zenpep 40,000-136,000- 218,000 unit oral cpDR 1 cap 3 times per day [Active]; ursodiol 300 mg Oral cap 1 cap daily [Active]; Jardiance 10 mg oral tab 1 tab once daily [Active]; levothyroxine 137 mcg tab 1 tab once daily [Active]; spironolactone 100 mg Oral tab 1 tab 2 times per day [Active]; furosemide 80 mg Oral tab 1 tab once daily [Active]; oxcarbazepine 150 mg oral tab 1 tab am, 2 tabs pm 2 times per day [Active]; Melatonin Oral [Active]; Vitamin D3 oral oral [Active]; - PMHx: 10:00 HEP C; Diabetes - NIDDM; Cyst on pancreas; Cirrhosis; liver cancer; Pancreatitis; tw2 Rheumatoid Arthritis; - PSHx: 10:00 ; hand surgery; tw2 - Immunization history:: Adult Immunizations. - Social history:: Smoking status: . Screenin:05 Abuse screen: Denies threats or abuse. Nutritional screening: No deficits noted. vg1 Tuberculosis screening: No symptoms or risk factors identified. Fall Risk No fall in past 12 months (0 pts). No secondary diagnosis (0 pts). IV access (20 points). Ambulatory Aid- None/Bed Rest/Nurse Assist (0 pts). Gait- Normal/Bed Rest/Wheelchair (0 pts) Mental Status- Oriented to own ability (0 pts). Total Amanda Fall Scale indicates No Risk (0-24 pts). Assessment: 10:05 General: Appears in no apparent distress. Behavior is calm, cooperative. Pain: Denies vg1 pain. Neuro: Level of Consciousness is awake, alert, obeys commands, Oriented to person, place, time, situation. Cardiovascular: Patient's skin is warm and dry. Respiratory: Airway is patent Respiratory effort is even, unlabored, Respiratory pattern is regular, symmetrical. GI: Abdomen is round distended, noted to have ascites, Reports constipation, nausea, Last BM Thursday afternoon. : No signs and/or symptoms were reported regarding the genitourinary system. EENT: Sclera/Cornea yellow. Derm: Skin is pink, warm \\T\\ dry. Musculoskeletal: Range of motion: intact in all extremities. 11:08 Reassessment: Patient appears in no apparent distress at this time. Patient and/or vg1 family updated on plan of care and expected duration. Pain level reassessed. Patient is alert, oriented x 3, equal unlabored respirations, skin warm/dry/pink. Patient denies pain at this time. 11:58 Reassessment: Patient appears in no apparent distress at this time. Patient and/or vg1 family updated on plan of care and expected duration. Pain level reassessed. Patient is alert, oriented x 3, equal unlabored respirations, skin warm/dry/pink. Noticed patient grimacing, asked patient what was wrong and patient stated 'my feet hurt, feels like pins but its due to my neuropathy'. Patient denies pain at this time. 12:55 Reassessment: Patient appears in no apparent distress at this time. Patient and/or vg1 family updated on plan of care and expected duration. Pain level reassessed. Patient is alert, oriented x 3, equal unlabored respirations, skin warm/dry/pink. 14:30 Reassessment: Patient appears in no apparent distress at this time. Patient and/or vg1 family updated on plan of care and expected duration. Pain level reassessed. Patient is alert, oriented x 3, equal unlabored respirations, skin warm/dry/pink. 14:58 Reassessment: Dr Mart at patient bedside. [facility] Vital Signs: 09:56 BP 128 / 61; Pulse 77; Resp 18; Temp 98.5(O); Pulse Ox 100% on R/A; Weight 86.18 kg tw2 (R); Height 5 ft. 4 in. (162.56 cm); Pain 8/10; 10:00 BP 143 / 50; Pulse 81; Resp 18; Pulse Ox 100% on R/A; vg1 10:30 BP 125 / 51; Pulse 71; Resp 18; Pulse Ox 99% on R/A; vg1 11:00 BP 104 / 37; Pulse 72; Resp 18; Pulse Ox 99% on R/A; vg1 11:30 BP 117 / 48; Pulse 74; Resp 18; Pulse Ox 97% on R/A; vg1 11:45 BP 123 / 42; Pulse 77; Resp 14; Pulse Ox 98% on R/A; vg1 12:00 BP 109 / 96; Pulse 78; Resp 14; Pulse Ox 99% on R/A; vg1 12:30 BP 140 / 54 Sitting; Pulse 73; Resp 16; Pulse Ox 100% on R/A; vg1 12:45 BP 146 / 65 Sitting; Pulse 81; Resp 16; Pulse Ox 99% on R/A; vg1 13:02 BP 138 / 59; Pulse 86; Resp 14; Pulse Ox 100% on R/A; vg1 13:30 BP 135 / 70; Pulse 53; Resp 14; Pulse Ox 100% on R/A; vg1 14:00 BP 141 / 83; Pulse 84; Resp 16; Pulse Ox 100% on R/A; vg1 14:30 BP 150 / 61; Pulse 84; Resp 14; Pulse Ox 100% on R/A; vg1 09:56 Body Mass Index 32.61 (86.18 kg, 162.56 cm) tw2 09:56 "8 is my nausea" tw2 ED Course: 09:49 Patient arrived in ED. as 09:49 Joseph Mart MD is Private Physician. as 09:56 Fabian Yoon MD is Attending Physician. [facility] 09:57 Fatmata Dixon, ALCON is Primary Nurse. vg1 09:58 Triage completed. tw2 09:58 Arm band placed on. tw2 10:10 Patient has correct armband on for positive identification. Placed in gown. Bed in low vg1 position. Call light in reach. Side rails up X 1. Adult w/ patient. 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 Pulse ox on. NIBP on. 10:10 Door closed. Warm blanket given. vg1 10:11 Delmar Jean PA is PHCP. jr8 10:35 Missed attempt(s): 20 gauge in left forearm. vg1 10:47 XRAY Chest (1 view) In Process Unspecified. EDMS 10:50 Initial lab(s) drawn, by al, sent to lab. Inserted saline lock: 20 gauge in right aa5 wrist, using aseptic technique. Blood collected. 14:44 Joseph Mart MD is Referral Physician. jr8 15:11 IV discontinued, intact, bleeding controlled, No redness/swelling at site. Pressure iw dressing applied. 15:11 No provider procedures requiring assistance completed. iw Administered Medications: 12:35 Drug: Promethazine 12.5 mg Route: IVP; Site: right hand; vg1 13:00 Follow up: Response: Nausea is decreased vg1 12:40 Drug: Lasix 60 mg Route: IVP; Site: right hand; vg1 13:20 Follow up: Response: No adverse reaction; Other vg1 14:20 Drug: Promethazine 12.5 mg Route: IVP; Site: right wrist; aa5 15:14 Follow up: Response: Nausea is decreased vg1 14:30 Drug: fentaNYL (PF) 25 mcg {Note: RASS 0.} Route: IVP; Site: right wrist; vg1 14:50 Follow up: Response: No adverse reaction; Pain is unchanged, physician notified vg1 Output: 13:15 Urine: 300ml (Voided); Total: 300ml. vg1 14:30 Urine: 200ml (Voided); Total: 500ml. vg1 Outcome: 14:45 Discharge ordered by . kaushik 15:10 Discharged to home via wheelchair, with family. iw 15:10 Condition: good 15:10 Discharge instructions given to patient, family, Instructed on discharge instructions, follow up and referral plans. Demonstrated understanding of instructions, follow-up care. 15:11 Prescriptions given X 1. iw 15:11 Patient left the ED. iw Signatures: Dispatcher [employer] EDMS Fabian Yoon MD MD cha Martinez, Amelia as Williams, Irene, RN RN iw Ana Cordoba, RN RN aa5 Delmar Jean PA PA Mary Sherman, ALCON RN tw2 Fatmata Dixon, ALCON RN vg1 Corrections: (The following items were deleted from the chart) 11:21 10:05 GI: Reports constipation, nausea, Last BM Thursday afternoon. vg1 vg1
[2020-01-30 18:42] VITALS: TEMP 98.5
[2020-01-30 19:01] VITALS: O2SAT 100
[2020-01-30 19:07] VITALS: BP 150/61
--- NOTE | 2020-01-30 20:24 | P.PN ---
Date of Service: 01/30/20 patient was sent to the ER for nausea. She did better with some iv medications and was sent home The patient was supposed to come to the wound care center today She has a right greater toe ulcer. however it has healed completely. She was gracious enough to come to the wound center to ring the valdez. A tradition in the wound center
--- NOTE | 2020-01-31 18:16 | EKG ---
Test Date: 2020-01-30 Test Time: 10:18:33 [employer]: SANTIAGO MEASUREMENT RESULTS: Intervals: Rate: 72 VT: 150 QRSD: 86 QT: 426 QTc: 466 [place]: P: 75 VT: 150 QRS: 82 T: 34 INTERPRETIVE STATEMENTS: Normal sinus rhythm Possible Anterior infarct, age undetermined Abnormal ECG Compared to ECG 05/24/2019 10:51:49 No significant changes Electronically Signed On 01-31-20 18:11:43 MEDICAL AFFAIRS LEADER by Abdirizak Reyes
== END 2020-01-30 15:11 | disposition home or self-care (01) ==
LOC: ER 09:47
DX: K74.60 Unspecified cirrhosis of liver (principal); R60.1 Generalized edema; E11.9 Type 2 diabetes mellitus without complications; B19.20 Unspecified viral hepatitis C without hepatic coma; Z85.05 Personal history of malignant neoplasm of liver; Z88.2 Allergy status to sulfonamides
CPT/HCPCS: 93005; 85025; 80048; 36415; 82140; 83735; 85610; 80076; 84484; 83690; 83880; 71045; 99284; J1940 ×2; J2550 ×2; J3010

== ENCOUNTER 2020-03-20 08:07 | Emergency (ER) | payer OTHER ==
--- OUTSIDE RECORDS SUMMARY | 2020-03-20 08:14 | XMS REPORT | Clinical Summary ---
:1955 Author Organization [facility] Address [address] [place] [address] Care Team Providers Name Role Phone Irma [...] unspecified whether ascites present (HCC), Cancer screening [id number] Take 1 capsule by 0 Active ylase [...] pending further imaging/testing and official review at [facility]. 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, unspecified hepatic cirrhosis type (HCC) 03/08/2020 Hospital Encounter Radiology Khaderi, Peggy Hepatoc ellular carcinoma (HCC); MD Venancio Chronic hepatit is C without hepatic coma (HCC) 03/05/2020 Outside Orders Radiology Lalo Hood MD 03/05/2020 Orders Only Transplant Mercer, Hepatocellular carcinoma (HCC) (Primary Dx); Hepatology Joel Madrigal RN Cirrhosis of l iver without ascites, unspecified hepatic cirrhosis type (HCC) 03/01/2020 Hospital Encounter Radiology Khaderi, Peggy Hepatoc ellular carcinoma (HCC); MD Venancio Chronic hepatit is C without hepatic coma (HCC) 02/24/2020 Hospital Encounter Radiology Khaderi, Peggy Hepatoc ellular carcinoma (HCC); MD Venancio Chronic hepatit is C without hepatic coma (HCC) 02/22/2020 Refill Transplant Khaderi, Peggy Hepatic cirrh osis, unspecified hepatic cirrhosis type, unspecified whether ascites present (HCC); Hepatology MD Venancio Chronic hepatit is C without hepatic coma (HCC); Other ascites 02/17/2020 Hospital Encounter Radiology Khaderi, Peggy Hepatoc ellular carcinoma (HCC); MD Venancio Chronic hepatit is C without hepatic coma (HCC) 02/10/2020 Office Visit Interventional Peggy Navarrete Radiology MD Venancio 02/10/2020 Hospital Encounter Radiology Khaderi, Peggy Hepatoc ellular carcinoma (HCC); MD Venancio Chronic hepatit is C without hepatic coma (HCC) 02/08/2020 Orders Only Transplant Mercer, Hepatocellular carcinoma (HCC) (Primary Dx); Hepatology Joel Madrigal RN Chronic hepati tis C without hepatic coma (HCC) 02/03/2020 Hospital Encounter Radiology Khaderi, Peggy Chronic hepatitis C without hepatic coma (HCC); MD Venancio Hepatocellular carcinoma (HCC); Other ascites 01/31/2020 Documentation Transplant Mary Boone Hepatology 01/27/2020 Hospital Encounter Radiology Khaderi, Peggy Chronic hepatitis C without hepatic coma (HCC); MD Venancio Hepatocellular carcinoma (HCC); Other ascites 01/27/2020 Travel 01/26/2020 Orders Only Transplant Ruslan, Luz Madrigal RN 01/20/2020 Hospital Encounter Radiology Peggy Navarrete Chronic hepatitis C without hepatic coma (HCC); MD Venancio Hepatocellular carcinoma (HCC); Other ascites 01/20/2020 Documentation Transplant Mary Boone Hepatology 01/20/2020 Documentation Transplant Ruslan, Luz Madrigal RN 01/20/2020 Documentation Transplant BooneMary Hepatology 01/20/2020 Telephone Transplant Ruslan, EGD follow up Luz Madrigal RN 01/19/2020 Orders Only Transplant Ruslan, Chronic hepatit is C without hepatic coma (HCC) (Primary Dx); Hepatenoch Madrigal RN Hepatocellular carcinoma (HCC); Other ascites 01/18/2020 Orders Only Transplant Peggy Navarrete Liver disease ; Hepatenoch Craft MD Hepatic cirrhos is, unspecified hepatic cirrhosis type, unspecified whether ascites present (HCC); Hepatocellular carcinoma 01/18/2020 Office Visit Transplant Peggy Navarrete Hepatic cirrh osis, unspecified hepatic cirrhosis type, unspecified whether ascites present (HCC) (Primary Dx); Hepatology MD Venancio Other ascites; Hepatocellular carcinoma 01/18/2020 Documentation Transplant BooneMary Hepatology 01/18/2020 Orders Only Transplant Mercer, Hepatocellular carcinoma (HCC) (Primary Dx); Hepatology Joel Madrigal RN 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); Chronic hepatit is C without hepatic coma (HCC) 01/13/2020 Hospital Encounter Radiology Peggy Navarrete Other a scites; MD Venancio Hepatocellular carcinoma 01/13/2020 Travel 01/12/2020 Abstract Hepatology Yamila Reddy MA 01/10/2020 Telephone Transplant Ruslan, Follow-up Luz Madrigal RN 01/09/2020 Telephone Transplant [...] 01/06/2020 Travel 01/05/2020 Telephone Transplant Mercer, Follow-up Hepatenoch Madrigal RN 01/05/2020 Orders Only Transplant Mercer, Luz Madrigal RN 01/02/2020 Outside Orders Radiology Peggy Navarrete MD 12/30/2019 Hospital Encounter Radiology BrentchaseSaPeggy Hepatoc ellular carcinoma ; MD Venancio Other ascites 12/23/2019 Hospital Encounter Radiology Brentchase Peggy Hepatoc ellular carcinoma ; MD Venancio Other ascites 12/16/2019 Hospital Encounter Radiology BrentchaseSaPeggy Hepatoc ellular carcinoma ; MD Venancio Other ascites 12/15/2019 Orders Only Transplant Mercer, Other ascites ( Primary Dx); Hepatology Joel Madrigal RN Hepatocellular carcinoma 12/15/2019 Documentation Transplant Boone, Micheyl Hepatology 12/15/2019 Documentation Central Scheduling Boone, Micheyl 12/15/2019 Telephone Transplant Mercer, Follow-up Hepatenoch Madrigal RN 12/09/2019 Hospital Encounter Radiology Sa Rosalbaira Hepatoc ellular carcinoma ; MD Venancio Other ascites 12/09/2019 Travel 12/08/2019 Orders Only Transplant Mercer, Hepatocellular carcinoma (Primary Dx); Hepatology Joel Madrigal RN Other ascites 12/05/2019 Orders Only Transplant Mercer, Hepatic cirrhos is, unspecified hepatic cirrhosis type, unspecified whether ascites present (HCC) (Primary Dx); Hepatology Joel Madrigal RN Liver disease; Hepatocellular carcinoma 12/02/2019 Documentation Transplant Boone, Micheyl Hepatology 12/02/2019 Documentation Transplant Boone, Micheyl Hepatology 11/23/2019 Hospital Encounter General Internal Zindani, Hepat ic cirrhosis, unspecified hepatic cirrhosis type, unspecified whether ascites present (HCC); - Mason Wallis MD Hepatocellular carcinoma (HCC); 11/27/2019 Gilberto, Other ascites; Mrinalini Elisabet, Peritonitis (HCC) Marecla Recinos MD 11/23/2019 Office Visit Transplant Peggy Navarrete Hepatic cirrh osis, unspecified hepatic cirrhosis type, unspecified whether ascites present (HCC) (Primary Dx); Hepatology MD Venancio Other ascites; Zindani, Portal hyperten sadiq (HCC); MD Kadi Hepatocellular carcinoma ; Peritonitis (HC C) 11/23/2019 Abstract Transplant Renetta Washington 11/23/2019 Travel 11/23/2019 Telephone Transplant Peggy Navarrete Results Luz Craft MD 11/22/2019 Hospital Encounter Radiology Peggy Navarrete MD 11/22/2019 Orders Only Radiology Praveen, Other ascites; Marthelma Chronic hepatit is C without hepatic coma (HCC) 11/22/2019 Orders Only Transplant Mercer, Other ascites ( Primary Dx); Hepatology Joel Madrigal RN Chronic hepati tis C without hepatic coma (HCC) 11/21/2019 Documentation Transplant Ruslan, Luz Madrigal RN 11/18/2019 Anesthesia Event Ely, Shahid-MD Kleber Persaud, Janina Reese MD 11/18/2019 [...] Travel 11/15/2019 Telephone Transplant Ruslan, patient call Luz Madrigal RN 11/15/2019 Orders Only Transplant Mercer, [...] (Primary Dx) 11/15/2019 Outside Orders Central Scheduling Sa Rosalbaira Other specified MD Venancio pre-operative examination (Pr imary Dx) 11/11/2019 Hospital Encounter Radiology Peggy Navarrete Hepatoc ellular carcinoma ; MD Venancio Chronic hepatit is C without hepatic coma (HCC) 11/02/2019 Orders Only Transplant Mercer, Chronic hepatit is C without hepatic coma (HCC) (Primary Dx); Hepatology Joel Madrigal RN Hepatocellular carcinoma 11/01/2019 Hospital [...] hepatic coma (HCC) 10/19/2019 Orders Only Lab Peggy Navarrete Hepatocellula r carcinoma ; MD Venancio Chronic hepatit is C without hepatic coma (HCC) 10/19/2019 Office Visit Transplant Rosalba, Peggy Hepatocellula r carcinoma (Primary Dx); Hepatology MD Venancio Chronic hepatit is C without hepatic coma (HCC) 10/19/2019 Documentation Transplant Ruslan, Hepatology Joel Madrigal RN 10/19/2019 Orders Only [...] Maureen, Hepatology KAVITA Driscoll 10/11/2019 Documentation Transplant Ruslan, Hepatenoch Madrigal RN 10/07/2019 Orders Only Lab Rosalba, Peggy Hepatocellula r carcinoma ; MD Venancio Hepatic cirrhos is, unspecified hepatic cirrhosis type, unspecified whether ascites present (HCC); Other ascites 10/07/2019 Hospital Encounter Radiology Yeeri, Peggy Hepatoc ellular carcinoma ; MD Venancio Hepatic cirrhos is, unspecified hepatic cirrhosis type, unspecified whether ascites present (HCC); Other ascites 10/07/2019 Hospital Encounter Radiology Khaderi, Peggy Hepatoc ellular carcinoma ; MD Venancio Hepatic cirrhos is, unspecified hepatic cirrhosis type, unspecified whether ascites present (HCC); Other ascites 10/07/2019 Hospital Encounter Radiology Sa Rosalbaira MD Venancio 10/07/2019 Hospital Encounter Radiology Khaderi, Peggy Hepatoc ellular carcinoma ; MD Venancio [...] Hepatology Peggy Navarrete MD 08/12/2019 Telephone Transplant Celis, [place] in the [place] Hepatology ALCON Russell [...] hepatic coma (HCC) 07/12/2019 Hospital Encounter Radiology Yeeri, Peggy Hepatoc ellular carcinoma ; MD Venancio [...] Other ascites 06/03/2019 Telephone Transplant Mary Boone Appointment Hepatology 06/02/2019 Abstract Transplant Maureen, Hepatology KAVITA Driscoll 05/27/2019 Orders Only Lab Khaderi, Peggy Chronic [...] Other ascites 05/27/2019 Outside Orders Varghese Valles Irma 04/15/2019 Hospital Encounter Khaderi, Peggy Chronic hepatitis C without hepatic coma (HCC); MD Venancio Hepatocellular carcinoma ; Other ascites 04/08/2019 Outside Orders Radiology Fela Reyes 04/07/2019 Orders Only Transplant Mercer, Hepatocellular carcinoma (Primary Dx); Hepatology Joel Madrigal RN Hepatic cirrho sis, unspecified hepatic cirrhosis type, unspecified whether ascites present (HCC) 03/31/2019 Office Visit Scott French II, MD after 03/20/2019 Family History Medical History Relation Name Comments COPD Father Heart disease Father Heart disease Mother Relation Name Status Comments Father Mother Social History Tobacco Use Types Packs/Day Years Used Date Former Smoker Quit: 05/30/19 19 Smokeless Tobacco: Never Used Tobacco Cessation: Counseling Given: No Alcohol Use Drinks/Week oz/Week Comments No NONE [...] Sign Reading Time Taken Comments Blood Pressure 120/51 03/16/2020 10:49 AM ROLLER CLEANER Pulse 72 03/16/2020 10:49 AM ROLLER CLEANER Temperature 36.6 C (97.9 F) 03/16/2020 10:49 AM ROLLER CLEANER Respiratory Rate 20 03/16/2020 10:49 AM ROLLER CLEANER Oxygen Saturation 100% 03/16/2020 10:49 AM ROLLER CLEANER Inhaled Oxygen Concentration - - Weight 80.7 kg (178 lb) 03/16/2020 8:29 AM ROLLER CLEANER Height 162.6 cm (5' 4") 03/16/2020 8:29 AM ROLLER CLEANER Body Mass Index 30.55 03/16/2020 8:29 AM ROLLER CLEANER Plan of Treatment Date Type Specialty Care Team Description 03/23/2020 Appointment Radiology Peggy Navarrete MD [address] [place], [place] [address] [phone] 03/30/2020 Appointment Peggy Neves MD [address] [place], [place] [address] [phone] 04/06/2020 Appointment Radiology Peggy Navarrete MD [address] [address] 04/13/2020 Appointment Radiology Peggy Navarrete MD [address] [address] 04/13/2020 Appointment Radiology Peggy Navarrete MD [address] [address] 04/13/2020 Appointment Radiology Peggy Navarrete MD [address] [address] 04/13/2020 Orders Only Lab Peggy Navarrete MD [address] [address] 04/13/2020 Appointment Radiology Peggy Navarrete MD [address] [address] 04/25/2020 Office Visit Transplant Hepatology Moriah Navarrete MD [address] [address] Health Maintenance Due Date Last Done Comments COLON CANCER SCREENING COLONOSCOPY 1955 DIABETIC EYE EXAM 10/19/1963 DIABETIC FOOT EXAM 10/19/1963 HEPATITIS B VACCINE (1 of 3 - Risk 3-dose 1972 series) HEMOGLOBIN A1C 08/26/2018 05/26/2018 PNEUMOCOCCAL 65+ YRS (1 of 1 - 2018 [id number]) INFLUENZA VACCINE (#1) 2019 DEPRESSION SCREENING (12+) 03/09/2020 URINE MICROALBUMIN 04/29/2020 04/29/2019 BREAST CANCER SCREENING 05/26/2020 05/26/2018, 05/26/2018 Procedures Procedure Name Priority Date/Time Associated Diagnosis Comme nts US PARACENTESIS Routine 03/16/2020 10:30 Hepatocellular Result s for this AM [employer]ER CLEANER carcinoma (HCC) procedure are in Cirrhosis of liver the resul ts without ascites, section. unspecified hepatic cirrhosis type (HCC) BODY FLUID CELL COUNT Routine 03/16/2020 9:50 Re sults for this WITH DIFFERENTIAL AM [employer]ER CLE[employer]ER procedure are in the results section. US PARACENTESIS Routine 03/08/2020 11:16 Hepatocellular Result s for this AM [employer] CLE[employer]ER carcinoma (HCC) procedure are in Chronic hepatitis C the resu lts without hepatic coma section . (HCC) BODY FLUID CELL COUNT Routine 03/08/2020 10:07 Re sults for this WITH DIFFERENTIAL AM [employer]ER CLE[employer]ER procedure are in the results section. US PARACENTESIS Routine 03/01/2020 9:22 Hepatocellular Result s for this AM [employer]ER CLE[employer]ER carcinoma (HCC) procedure are in Chronic hepatitis C the resu lts without hepatic coma section . (HCC) BODY FLUID CELL COUNT Routine 03/01/2020 8:44 Re sults for this WITH DIFFERENTIAL AM [employer]ER CLEANER procedure are in the results section. BODY FLUID CELL COUNT Routine 02/24/2020 9:47 Re sults for this WITH DIFFERENTIAL AM [employer]ER CLEANER procedure are in the results section. US PARACENTESIS Routine 02/24/2020 9:45 Hepatocellular Result s for this AM [employer] CLE[employer]ER carcinoma (HCC) procedure are in Chronic hepatitis C the resu lts without hepatic coma section . (HCC) CBC W/PLT COUNT & AUTO STAT 02/24/2020 7:44 R esults for this DIFFERENTIAL AM [employer] CLE[employer]ER procedure are i n the results section. CBC W/PLT COUNT & AUTO STAT 02/24/2020 7:44 R esults for this DIFFERENTIAL AM [employer]ER CLE[employer]ER procedure are i n the results section. APTT STAT 02/24/2020 7:44 Results for this AM [employer]ER procedure are i n the results section. PROTHROMBIN TIME/INR STAT 02/24/2020 7:44 Res ults for this AM [employer]ER procedure are i n the results section. US PARACENTESIS Routine 02/17/2020 8:52 Hepatocellular Result s for this AM [employer] CLE[employer]ER carcinoma (HCC) procedure are in Chronic hepatitis C the resu lts without hepatic coma section . (HCC) BODY FLUID CELL COUNT Routine 02/17/2020 8:30 Re sults for this WITH DIFFERENTIAL AM [employer]ER CLE[employer]ER procedure are in the results section. US PARACENTESIS Routine 02/10/2020 11:00 Hepatocellular Result s for this AM [employer] CLE[employer]ER carcinoma (HCC) procedure are in Chronic hepatitis C the resu lts without hepatic coma section . (HCC) BODY FLUID CELL COUNT Routine 02/10/2020 9:39 Re sults for this WITH DIFFERENTIAL AM [employer]ER CLE[employer]ER procedure are in the results section. US PARACENTESIS Routine 02/03/2020 9:25 Chronic hepatitis C R esults for this AM [employer]ER CLE[employer]ER without hepatic coma procedu re are in (HCC) the results Hepatocellular section. carcinoma (HCC) Other ascites BODY FLUID CELL COUNT Routine 02/03/2020 8:48 Re sults for this WITH DIFFERENTIAL AM [employer]ER CLEANER procedure are in the results section. US PARACENTESIS Routine 01/27/2020 9:19 Chronic hepatitis C R esults for this AM [employer] CLE[employer]ER without hepatic coma procedu re are in (HCC) the results Hepatocellular section. carcinoma (HCC) Other ascites BODY FLUID CELL COUNT Routine 01/27/2020 8:49 Re sults for this WITH DIFFERENTIAL AM [employer]ER CLEANER procedure are in the results section. US PARACENTESIS Routine 01/20/2020 9:39 Chronic hepatitis C R esults for this AM [employer] CLE[employer]ER without hepatic coma procedu re are in (HCC) the results Hepatocellular section. carcinoma (HCC) Other ascites BODY FLUID CELL COUNT Routine 01/20/2020 8:45 Re sults for this WITH DIFFERENTIAL AM [employer]ER CLEANER procedure are in the results section. CBC W/PLT COUNT & AUTO Routine 01/18/2020 10:17 Liver di sease Results for this DIFFERENTIAL AM [employer] CLE[employer]ER Hepatic cirrhosis, procedure are in unspecified hepatic the resu lts cirrhosis type, section. unspecified whether ascites present (HCC) Hepatocellular carcinoma PROTHROMBIN TIME/INR Routine 01/18/2020 10:17 Liver dise ase Results for this AM [employer] CLE[employer]ER Hepatic cirrhosis, procedure are in unspecified hepatic the resu lts cirrhosis type, section. unspecified whether ascites present (HCC) Hepatocellular carcinoma HEPATIC FUNCTION PANEL Routine 01/18/2020 10:17 Liver di sease Results for this AM [employer] CLE[employer]ER Hepatic cirrhosis, procedure are in unspecified hepatic the resu lts cirrhosis type, section. unspecified whether ascites present (HCC) Hepatocellular carcinoma CBC W/PLT COUNT & AUTO Routine 01/18/2020 10:17 Liver di sease Results for this DIFFERENTIAL AM [employer]ER CLEANER Hepatic cirrhosis, procedure are in unspecified hepatic the resu lts cirrhosis type, section. unspecified whether ascites present (HCC) Hepatocellular carcinoma BASIC METABOLIC PANEL Routine 01/18/2020 10:17 Liver dis ease Results for this (7) AM [employer] CLE[employer]ER Hepatic cirrhosis, procedure are in unspecified hepatic the resu lts cirrhosis type, section. unspecified whether ascites present (HCC) Hepatocellular carcinoma ALPHA FETOPROTEIN Routine 01/18/2020 10:17 Liver disease Results for this (AFP), TUMOR MARKER AM [employer]ER CLEANER Hepatic cirrhosis, pr ocedure are in unspecified hepatic the resu lts cirrhosis type, section. unspecified whether ascites present (HCC) Hepatocellular carcinoma US PARACENTESIS Routine 01/13/2020 11:12 Other ascites Results for this AM [employer] CLE[employer]ER Hepatocellular procedure are in carcinoma the results section. BODY FLUID CELL COUNT Routine 01/13/2020 10:53 Re sults for this WITH DIFFERENTIAL AM [employer] CLE[employer]ER procedure are in the results section. MR [...] are i n the results section. SARS-COV2/RT-PCR ([facility] Routine 11/24/2019 9:51 R esults for this [...] 416 ms QTC Calculation(Bazett) 470 ms P [place] 80 degrees R [place] 78 degrees T [place] 45 degrees Normal sinus rhythm Possible Anterior [...] Resul ts for this IV CONTRAST PM [employer]ER CLE[employer]ER procedure are i n the results section. IR EMBOLIZATION Routine 04/15/2019 1:21 Chronic hepatitis C R esults for this ARTERIAL PM [employer]ER CLE[employer]ER without hepatic coma procedu re are in (HCC) the results Hepatocellular section. carcinoma Other ascites INSERT PERIPHERAL IV Routine 04/15/2019 1:11 Res ults for this PM [employer]ER procedure are i n the results section. CBC W/PLT COUNT & Routine 04/15/2019 8:45 Result s for this AUTO DIFFERENTIAL AM [employer] CLE[employer]ER procedure are in the results section. COMPREHENSIVE Routine 04/15/2019 8:45 Results fo r this METABOLIC PANEL AM [employer]ER CLE[employer]ER procedure ar e in the results section. CBC W/PLT COUNT & Routine 04/15/2019 8:45 Result s for this AUTO DIFFERENTIAL AM [employer] CLE[employer]ER procedure are in the results section. APTT Routine 04/15/2019 8:45 Results for this AM [employer]ER procedure are i n the results section. PROTHROMBIN TIME/INR Routine 04/15/2019 8:45 Res ults for this AM [employer] CLE[employer]ER procedure are i n the results section. after 03/20/2019 Results Ultrasound PARACENTESIS (03/16/2020 10:30 AM ROLLER CLEANER)Only the most recent of20 resultswithin the time period is included. Specimen Narrative Performed At FINAL REPORT [facility] Ultrasound guided paracentesis, 03/16/2020 . Clinical History: Ascites. Sedation: None. Hand Alterations Tailor: Rose. Business Banking Sales Assistant: None. Estimated Blood Loss: < 1 cc. Specimen: 7300 cc of clear yellow fluid, samples sent [...] manner. After local anesthesia was achieved with 1% lidocain e, a 5 [place] one-step catheter was advanced into the peritonea l cavity under ultrasound guidance. After completion of drainage, the catheter was removed. There was no evidence of complication. Patient Disposition: The patient was d ischarged from the ultrasound department after the paracentesis, in go od condition. Impression: Successful ultrasound guided paracentesi s. Signed: Reynold Rose MD Report Verified Date/Time: 03/16/2020 14:20:22 Reading Location: [address] [address] Angio Body Reading Room Procedure Note Interface, External Ris In - 03/16/2020 2:22 PM ROLLER CLEANER FINAL REPORT Ultrasound guided paracentesis, 03/16/2020 . Clinical History: Ascites. Sedation: None. Hand Alterations Tailor: Rose. Business Banking Sales Assistant: None. Estimated Blood Loss: < 1 cc. Specimen: 7300 cc of clear yellow fluid, samples sent [...] manner. After local anesthesia was achieved with 1% lidocain e, a 5 [place] one-step catheter was advanced into the peritonea l cavity under ultrasound guidance. After completion of drainage, the catheter was removed. There was no evidence of complication. Patient Disposition: The patient was di scharged from the ultrasound department after the paracentesis, in go od condition. Impression: Successful ultrasound guided paracentesi s. Signed: Reynold Rose MD Report Verified Date/Time: 03/16/2020 1 4:20:22 Reading Location: [facility] [address] Angio Body Reading Room Performing Organization Address City/[facility]/Zipcode Phone Number [facility] Body fluid cell count with differential (03/16/2020 9:50 AM ROLLER CLEANER)Only the most recent of20 resultswithin the time period is included. Appearance Slightly Hazy (A) Clear [facility] Color Straw Colorless, [facility] Straw [facility] RBCs 165 (H) <=1 /cu mm [facility] Adjusted WBC Count 163 (H) <=5 /cu mm [facility] Lining Cells 10 (H) <=1 /cu mm [facility] % Segs 68 % [facility] % Lymphs 9 % [facility] % Monos 23 % [facility] % Eos 0 % [facility] % Baso 0 % [facility] Container Body Sterile Vial [facility] Specimen Body Fluid - Ascites (disorder) Performing Organization Address City/[facility]/Zipcode Phone Number [facility] [address] [place] [address] CENTER CBC with platelet count + automated diff (02/24/2020 7:44 AM ROLLER CLEANER)Only the most recent of12 resultswithin the time period is included. Pathologist Sig nature WBC 4.4 3.5 - 10.5 [facility] K/L [facility] RBC 3.18 (L) 3.93 - 5.22 [facility] M/L [facility] Hemoglobin 8.8 (L) 11.2 - 15.7 [facility] GM/DL [facility] Hematocrit 27.7 (L) 34.1 - 44.9 % [facility] MCV 87.1 79.4 - 94.8 fL [facility] MCH 27.7 25.6 - 32.2 pg [facility] MCHC 31.8 (L) 32.2 - 35.5 [facility] GM/DL [facility] RDW 17.5 (H) 11.7 - 14.4 % [facility] Platelets 74 (L) 150 - 450 K/CU [facility] MM [facility] MPV 8.8 (L) 9.4 - 12.3 fL [facility] nRBC 0 0 - 0 /100 WBC [facility] % Neutros 84 % [facility] % Lymphs 5 % [facility] % Monos 10 % [facility] % Eos 1 % [facility] % Baso 0 % [facility] # Neutros 3.70 1.56 - 6.13 [facility] # Lymphs 0.23 (L) 1.18 - 3.74 [facility] # Monos 0.43 (H) 0.24 - 0.36 [facility] # Eos 0.02 (L) 0.04 - 0.36 [facility] # Baso 0.01 0.01 - 0.08 [facility] Immature 1 0 - 1 % [facility] Specimen Blood Performing Organization Address City/[facility]/Zipcode Phone Number [address] [address] CENTER aPTT (02/24/2020 7:44 AM ROLLER CLEANER)Only the most recent of6 resultswithin the time period is included. Pathologist Sig nature PTT 32.0 22.5 - 36.0 seconds [facility] Specimen Blood Performing Organization Address City/[facility] [place] Phone Number [address] [address] CENTER Prothrombin time/INR (02/24/2020 7:44 AM ROLLER CLEANER)Only the most recent of10 results within the time period is included. Pathologist Sig nature Protime 15.3 (H) 11.9 - 14.2 seconds [facility] INR 1.24 <=5.90 [facility] Specimen Blood Narrative Performed At Effective 08/04/2018: PT Reference Range [facility] Change New: 11.9-14.2 Previous: 11.7-14.7 RECOMMENDED COUMADIN/WARFARIN INR THERAPY RANGES STANDARD DOSE: 2.0-3.0 Includes: PROPHYLAXIS for venous thrombosis, systemic embolization; TREATMENT for venous thrombosis and/or pulmonary embolus. HIGH RISK: Target INR is 2.5-3.5 for patients wiht mechanical heart valves. Performing Organization Address [facility] [place] Phone Number [address] [address] CENTER Alpha fetoprotein (AFP), tumor marker (01/18/2020 10:17 AM ROLLER CLEANER)Only the most recent of3 resultswithin the time period is included. Pathologist Sig nature Alpha-Fetoprotein 4.8 <10.0 ng/mL [facility] Specimen Blood Narrative Performed At Sill Worker [facility] Performing Organization Address City/[facility]/Zipcode Phone Number [facility] [phone] [place] Hepatic function panel (01/18/2020 10:17 AM ROLLER CLEANER)Only the most recent of3 results within the time period is included. Pathologist Sig nature Protein, Total 6.1 6.0 - 8.3 gm/dL [facility] Albumin 3.5 3.5 - 5.0 g/dL [facility] Total Bilirubin 3.1 (H) 0.2 - 1.2 mg/dL [facility] Bilirubin, Direct 1.7 (H) 0.1 - 0.5 mg/dL [facility] Alkaline Phosphatase 233 (H) 40 - 150 U/L [facility] AST 31 5 - 34 U/L [facility] ALT 25 6 - 55 U/L [facility] Specimen Blood Narrative Performed At Sill Worker ID - [facility] Specimen slightly icteric Performing Organization Address City/State/Zipcode Phone Number [address] [address] [place] Basic Metabolic Panel (01/18/2020 10:17 AM ROLLER CLEANER)Only the most recent of4 results within the time period is included. Sodium 131 (L) 136 - 145 meq/L [facility] Potassium 3.4 (L) 3.5 - 5.1 meq/L [facility] Chloride 94 (L) 98 - 107 meq/L [facility] CO2 27 22 - 29 meq/L [facility] BUN 20 7 - 21 mg/dL [facility] Creatinine 1.05 0.57 - 1.25 [facility] mg/dL [facility] Glucose 242 (H) 70 - 105 mg/dL [facility] Calcium 8.3 (L) 8.4 - 10.2 [facility] mg/dL [facility] EGFR 52Comment: ESTIMATED mL/min/1.[address] [facility] GFR IS NOT m [facility] ACCURATE [place] CREATININE CLEARANCE IN PREDICTING GLOMERULAR FILTRATION RATE. ESTIMATED GFR IS NOT APPLICABLE FOR DIALYSIS PATIENTS. Specimen Blood Narrative Performed At Sill Worker ID - [facility] Specimen slightly icteric Performing Organization Address City/State/Zipcode Phone Number [facility] [address] [place] [address] CENTER MR abdomen without & with IV contrast (01/06/2020 1:45 PM CDT)Only the most recent of3 resultswithin the time period is included. Specimen Narrative Performed At FINAL REPORT [facility] TECHNIQUE: MRI of the abdomen WITHOUT an [...] nond iagnostic. COMPARISON: MRIs dating back to 5/10/201 9. FINDINGS: LOWER THORAX: Unremarkable. LIVER: Nodular, [...] 5:37:27 Performing Organization Address City/State/Zipcode Phone Number [facility] CT chest without IV contrast (01/06/2020 12:40 PM CDT)Only the most recent of3 resultswithin the time period is included. Specimen Narrative Performed At FINAL REPORT [facility] TECHNIQUE: CT scan of the chest WITHOUT [...] Organization Address City/State/Zipcode Phone Number GE RIS POC-Glucose meter (11/27/2019 11:51 AM CDT)Only the most recent of21 results within the time period is included. POC-Glucose Meter 221 (H)Comment: : 70 - [address] [facility] [facility] mg/dL [address], [address]: Sill Worker/Technicia n ID = [id number] for DAVION WALTON Specimen Blood Performing Organization Address [facility] [place] Phone Number [address] [phone] [place] Comprehensive metabolic panel (11/26/2019 4:32 AM CDT)Only the most recent of8 resultswithin the time period is included. Protein, Total 5.7 (L) 6.0 - 8.3 [facility] gm/dL [facility] Albumin 3.3 (L) 3.5 - 5.0 [facility] g/dL [facility] Alkaline 139 40 - 150 U/L [facility] Phosphatase [facility] Total Bilirubin 1.6 (H) 0.2 - 1.2 [facility] mg/dL [facility] Sodium 136 136 - 145 [facility] meq/L [facility] Potassium 4.3 3.5 - 5.1 [facility] meq/L [facility] Chloride 99 98 - 107 [facility] meq/L [facility] CO2 29 22 - 29 meq/L [facility] BUN 21 7 - 21 mg/dL [facility] Creatinine 0.87 0.57 - 1.25 [facility] mg/dL [facility] Glucose 150 (H) 70 - 105 [facility] mg/dL [facility] Calcium 8.3 (L) 8.4 - 10.2 [facility] mg/dL [facility] AST 33 5 - 34 U/L [facility] ALT 39 6 - 55 U/L [facility] EGFR 65Comment: mL/min/1.73 [facility] ESTIMATED GFR IS sq [facility] NOT ACCURATE [facility]ENTER CREATININE CLEARANCE IN PREDICTING GLOMERULAR FILTRATION RATE. ESTIMATED GFR IS NOT APPLICABLE FOR DIALYSIS PATIENTS. Specimen Blood Narrative Performed At Sill Worker ID - AAMIR Villareal [facility] Performing Organization Address City/[facility]/Zipcode Phone Number [facility] [address] [place] [address] CENTER Glucose Peritoneal Fluid (11/24/2019 4:17 PM CDT) Glucose, 327 mg/dL [facility] Peritoneal Fluid Comment: INCORPORATED Reference Range approximates that found in serum. Specimen Body Fluid - Ascites (disorder) Narrative Performed At Performing Lab [facility] [employer] [facility] [address] [place] [address] Obdulio Griffith MD, PhD, MOON Performing Organization Address [facility] [place] Phone Number [facility] [address] [facility] [address] [facility] Body fluid culture + gram stain (11/24/2019 4:17 PM CDT)Only the most recent of 2 resultswithin the time period is included. Result No growth [facility] Gram Stain Result 3+ WBCs [facility] Gram Stain Result No organisms seen [facility] Specimen Body Fluid - Ascites (disorder) Performing Organization Address City/[facility]/Zipcode Phone Number [facility] [address] [place] [address] CENTER SARS-CoV2/RT-PCR (Asymptomatic ONLY) (11/24/2019 9:51 AM CDT)Only the most recent of2 resultswithin the time period is included. SARS-COV2/RT-PCR Negative Not Detected, [facility] Negative, See [facility] external report CENTER for linked test SARS-COV-2 [facility] PERFORMING LAB [facility] Specimen Other - Nasopharyngeal wall structure (b mary anne structure) Narrative Performed At Negative result for this test determines that [facility] SARS-CoV-2 RNA was not present in the [...] the Act. Fact Sheet for Healthcare Providers: https://www.[employer]Raven.com/sites/default/files/pro duct/documents/Fact_Sheet_HC_Providers_Lyra_SA RS-CoV-2.pdf Fact Sheet for Healthcare Patients: https://www.[employer]Raven.com/sites/default/files/pro duct/documents/Fact_Sheet_Patients_Lyra_SARS-C oV-2.pdf Performing Laboratory: [place] [address] [place] [address] Performing Organization Address City/State/Zipcode Phone Number [facility] [address] [place] [address] [place] Urinalysis w/Microscopic + Reflex to Culture (11/23/2019 4:24 PM CDT) Color, UA Yellow [facility] Clarity, UA Clear [facility] Specific [place], 1.026 1.001 - 1.035 [facility] pH, UA 5.0 5.0 - 8.0 [facility] Protein, UA Negative Negative [facility] Glucose, UA >1000 mg/dL (A) Negative [facility] Ketones, UA Negative Negative [facility] Bilirubin, UA Negative Negative [facility] Blood, UA Negative Negative [facility] Nitrite, UA Negative Negative [facility] Leukocytes, UA Small (A) Negative [facility] Urobilinogen, UA 0.2 0.2 - 1.0 mg/dL [facility] RBC, UA 1 /HPF [facility] WBC, UA 1 /HPF [facility] Mucus Rare [facility] Squam Epithel, UA 1 /HPF [facility] Specimen Source [facility] Specimen Urine Narrative Performed At Sill Worker ID - [auto] [facility] Sill Worker ID - tech Performing Organization Address City/State/Zipcode Phone Number [facility] [address] [place] [address] [place] Blood Culture - Routine (Left Venipuncture) (11/23/2019 3:54 PM CDT) Pathologist Sig nature Result No growth in 5 days [facility] Specimen Blood - Entire left upper arm (body stru cture) Performing Organization Address City/State/Zipcode Phone Number [facility] [address] [place] [address] [place] CBC (Hemogram only) (11/19/2019 4:37 AM CDT) Pathologist Sig nature WBC 4.9 3.5 - 10.5 K/L [facility] RBC 3.76 (L) 3.93 - 5.22 M/L [facility] Hemoglobin 9.0 (L) 11.2 - 15.7 GM/DL [facility] Hematocrit 30.4 (L) 34.1 - 44.9 % [facility] MCV 80.9 79.4 - 94.8 fL [facility] MCH 23.9 (L) 25.6 - 32.2 pg [facility] MCHC 29.6 (L) 32.2 - 35.5 GM/DL [facility] RDW 18.0 (H) 11.7 - 14.4 % [facility] Platelets 87 (L) 150 - 450 K/CU MM [facility] MPV 10.5 9.4 - 12.3 fL [facility] nRBC 0 0 - 0 /100 WBC [facility] Specimen Blood Performing Organization Address City/[facility]/Zipcode Phone Number [facility] [address] [place] [address] [place] [address] RFA tumor ablation (11/18/2019 11:01 AM CDT) Specimen Narrative Performed At FINAL REPORT [place] CT and ultrasound Guided microwave ablat ion [...] ablation was recommended in a tumor board. Hand Alterations Tailor: Randy Radford MD. Business Banking Sales Assistant: Alex Richardson Modality: Ultrasound and CT DOSE REDUCTION: The examination was perf ormed according to departmental dose-optimization program w [facility] includes automated exposure control, adjustment of the [...] wide area of the abdomen and lower jaocby st was prepped with chlorhexidine gluconate and draped in a maximal sterile fashion. We targeted the segment IVb lesion first . A dermatotomy was performed. Using real-time ultrasound gu idance, the microwave antenna was placed in the target. At this time, a 4 [place] centesis needle needle was advanced under the [...] was followed by placement of the mi [employer] ablation probe using a right upper quadrant [...] Report Verified Date/Time: 11/21/2019 10:38:16 Reading Location: [facility] P048 Angio Body Reading Room Procedure Note [...] ablation was recommended in a tumor board. Hand Alterations Tailor: Randy Radford MD. Business Banking Sales Assistant: Alex Richardson Modality: Ultrasound and CT DOSE [...] the target. At this time, a 4 [place] centesis needle needle was advanced under the [...] Verified Date/Time: 11/21/2019 1 0:38:16 Reading Location: [place] [address] Angio Body Reading Room Performing Organization Address City/State/Zipcode Phone Number [facility] US unspecific guidance interventional (11/18/2019 11:00 AM CDT) Specimen Narrative Performed At FINAL REPORT [place] Please see the report under accession #[id number]. Thank you. Signed: Randy Radford MD Report Verified Date/Time: 11/21/2019 11:30:50 Reading Location: [place] [address] Angio Body Reading Room Procedure Note Interface, External Ris In - 11/21/2019 11:32 AM CDT FINAL REPORT Please see the report under accession #[id number]. Thank you. Signed: Randy Radford MD Report Verified Date/Time: 11/21/2019 1 1:30:50 Reading Location: [facility] B1 P048 Angio Body Reading Room Performing Organization Address City/State/[facility] [place] Phone Number GE RIS EKG 12 lead (11/18/2019 6:58 AM CDT) Specimen Narrative Performed At Ventricular Rate 77 BPM GE MUSE Atrial Rate 77 BPM P-R Interval 154 ms QRS Duration 92 ms Q-T Interval 416 ms QTC Calculation(Bazett) 470 ms P [place] 80 degrees R [place] 78 degrees T [place] 45 degrees Normal sinus rhythm Possible Anterior infarct 06 Feb 2018 Prolonged QT Abnormal ECG When compared with ECG of 06-FEB-2018 12 :50, QRS axis has shifted from right QT has lengthened Confirmed by MD SEO YOCHAI ([id number]) on 11/21/2019 8:38:28 AM Procedure Note Interface, External Ris In - 11/21/2019 8:38 AM CDT Ventricular Rate 77 BPM Atrial Rate 77 BPM P-R Interval 154 ms QRS Duration 92 ms Q-T Interval 416 ms QTC Calculation(Bazett) 470 ms P [place] 80 degrees R [place] 78 degrees T [place] 45 degrees Normal sinus rhythm Possible Anterior infarct 06 Feb 2018 Prolonged QT Abnormal ECG When compared with ECG of 06-FEB-2018 12 :50, QRS axis has shifted from right QT has lengthened Confirmed by MD SEO YOCHAI ([id number]) on 11/21/2019 8:38:28 AM Performing Organization Address City/[facility] Phone Number GE MUSE Cytology (11/11/2019 8:21 AM CDT) Pathologist Sig nature Case Report Medical Cytology Report Case: [id number] [facility] Authorizing Provider: Peggy Casillas MD Collected: 11/11/2019 08:21 AM HEALTH BCM Ordering Location: [facility] Main Received: 11/15/2019 09:37 AM MEDICAL CENTER Pathologist: Alberto Caba MD Specimen: Peritoneal Fl uid DIAGNOSIS PERITONEAL FLUID (CYTOSPINS): [facility] Electronically signed - NEGATIVE FOR [facility] BC by Alberto Caba FEW LYMPHOCYTES PRESENT [facility] DEYA High MD on Signing Pathologist Direct Phone Line: 11/15/2019 at 4:58 PM CPT Code(s) 87958 [facility] CLINICAL DATA Ascites, history of [facility] GARCI[facility] liver cancer [facility] SPECIMEN SOURCE PERITONEAL FLUID [facility] GROSS DESCRIPTION 3 mls yellow fluid; 4 cytosp ins (not enough specimen for cell block) DELMY [facility]ELS Collected: [id number] [facility] Received: [id number] [facility] MICROSCOPIC Performed. [facility] STATEMENT OF Satisfactory [facility] ADEQUACY [facility] Gross assessment [facility] was performed at [facility] Department of [facility] Pathology, [address] [place] [address], Technical component [facility] was performed at [facility] Department of MEDICAL CENTER Pathology, [address] [place] [address], Professional [facility] St. Carbones [facility] component was [facility] performed at Department of MEDICAL CENTER Pathology, [address] [place] [address], Specimen Body Fluid - Peritoneal fluid (substance ) Narrative Performed At This result has an attachment that is no t available. Performing Organization Address City/State/Zipcode Phone Number [address] [phone] CENTER PT/aPTT (10/19/2019 12:04 PM CDT) Pathologist Sig nature Protime 15.2 (H) 11.9 - 14.2 seconds [facility] INR 1.23 <=5.90 [facility] PTT 35.1 22.5 - 36.0 seconds [facility] Specimen Blood Narrative Performed At Effective 08/04/2018: PT Reference Range [facility] Change New: 11.9-14.2 Previous: 11.7-14.7 RECOMMENDED COUMADIN/WARFARIN INR THERAPY RANGES STANDARD DOSE: 2.0-3.0 Includes: PROPHYLAXIS for venous thrombosis, systemic embolization; TREATMENT for venous thrombosis and/or pulmonary embolus. HIGH RISK: Target INR is 2.5-3.5 for patients wiht mechanical heart valves. Performing Organization Address City/State/Zipcode Phone Number [facility] [address] [place] [address] CENTER NM bone scan whole body (10/07/2019 1:53 PM CDT) Specimen Narrative Performed At FINAL REPORT [facility] PROCEDURE: BONE SCAN, WHOLE BODY CPT CODE: 52978 INDICATION: Hepatocellular carci noma, pretransplant evaluation for [...] Report Verified Date/Time: 10/07/2019 14:24:47 Reading Location: [address] Reading Room Procedure Note Interface, External Ris In - 10/07/2019 2:26 PM CDT FINAL REPORT PROCEDURE: BONE SCAN, WHOLE BODY CPT CODE: 32344 INDICATION: Hepatocellular carcinom a, pretransplant evaluation for [...] Verified Date/Time: 10/07/2019 1 4:24:47 Reading Location: [facility] [address] [facility] [address] [place] Reading Room Performing Organization Address City/State/Zipcode Phone Number [facility] NM tumor localization SPECT (08/11/2019 3:37 PM CDT)Only the most recent of2 resultswithin the time period is included. Specimen Narrative Performed At FINAL REPORT [facility] PROCEDURE: TRACER DISTRIB UTION STUDY - SPECT (Bremsstrahlung) CPT CODE: 99235 CLINICAL INDICATION: Hepatocellu lar carcinoma PROTOCOL: 35.5 [...] Report Verified Date/Time: 08/12/2019 16:06:26 Reading Location: [facility] [address] [place] Reading Room Procedure Note Interface, External Ris In - 08/12/2019 4:08 PM CDT FINAL REPORT PROCEDURE: TRACER DIS TRIBUTION STUDY - SPECT (Bremsstrahlung) CPT CODE: 08263 CLINICAL INDICATION: Hepatocellular carcinoma PROTOCOL: 35.5 mCi [...] Verified Date/Time: 08/12/2019 1 6:06:26 Reading Location: [address] P327[address] Nuc Med Reading Room Performing Organization Address City/State/Zipcode Phone Number [facility] NM Y90 MICROPSHERES THERAPY (08/11/2019 3:36 PM CDT) Specimen Narrative Performed At FINAL REPORT [facility] PROCEDURE: Y-90 microsphere therapy (SIR-Spheres) CPT CODE: 16255 CLINICAL INDICATION: Hepatocellular c arcinoma PROTOCOL: 35.5 mCi of a planned 37 mC i dosage of Y-90 labeled microspheres (SIR-Spheres) was administe red by the nuclear medicine physician to the right lobe of the liver via a hepatic artery catheter placed by the interventional ra diologist. IMPRESSION: Y-90 microsphere therapy Signed: Gerry Hill MD Report Verified Date/Time: 08/11/2019 16:19:17 Reading Location: [address] Nuc Med Reading Room Procedure Note Interface, External Ris In - 08/11/2019 4:21 PM CDT FINAL REPORT PROCEDURE: Y-90 microsp here therapy (SIR-Spheres) CPT CODE: 28455 CLINICAL INDICATION: Hepatocellular ca rcinoma PROTOCOL: 35.5 mCi of a planned 37 mCi dosage of Y-90 labeled microspheres (SIR-Spheres) was administe red by the nuclear medicine physician to the right lobe of the liver via a hepatic artery catheter placed by the interventional ra diologist. IMPRESSION: Y-90 microsphere therapy Signed: Gerry Hill MD Report Verified Date/Time: 08/11/2019 1 6:19:17 Reading Location: [address] [facility] Reading Room Performing Organization Address City/State/Zipcode Phone Number [facility] IR Visceral Arteriogram (08/11/2019 2:40 PM CDT)Only the most recent of2 resultswithin the time period is included. Specimen Narrative Performed At FINAL REPORT [facility] Procedure: Transarterial radio-embolizat ion of the liver. [...] dictation for the mapping and treat ment. Hand Alterations Tailor: Randy Radford M.D. Business Banking Sales Assistant: Alex Ospina Modality: Sonography and fluoroscopy. DOSE [...] fluoroscopic guidance. Over the wire a 5 Malawian vascular sheath was placed. The sheath was connected to a he parinized saline drip. Over the wire, a 5 [place] reverse curve catheter was placed. This was [...] was injected by Dr. Hill [facility]. The catheter was then advanced into [...] was followed [facility] point with a [...] Report Verified Date/Time: 08/11/2019 15:38:16 Reading Location: [place] [address] Angio Body Reading Room Procedure Note Interface, [...] dictation for the map ping and treatment. Hand Alterations Tailor: Randy Radford M.D. Business Banking Sales Assistant: Alex Ospina Modality: Sonography and fluoroscopy. DOSE [...] The patient was laid supine on the [facility] dure table. Bilateral groins were prepped [...] fluoroscopic guidance. Over the wire a 5 Malawian vascular sheath was placed. The sheath was connected to a he parinized saline drip. Over the wire, a 5 [place]awian reverse curve catheter was placed. This was [...] was injected by Dr. Hill [facility]. The catheter was then advanced into [...] The patient was laid supine on the [facility] dure table. Bilateral groins were prepped [...] was followed by superselective catheterization of the [facility] hepatic artery branch point with a coaxial [...] Verified Date/Time: 08/11/2019 1 5:38:16 Reading Location: [facility] P048 Angio Body Reading Room Performing Organization Address City/State/Zipcode Phone Number [facility] NM tumor localization multiple (08/11/2019 12:40 PM CDT) Specimen Narrative Performed At FINAL REPORT [facility] PROCEDURE: TRACER DISTRIBUTION STUDY, WHOLE BODY with SPECT CPT CODE: 33411, 36704 CLINICAL INDICATION: Hepatocellular c arcinoma PROTOCOL: 2.7 [...] Report Verified Date/Time: 08/11/2019 16:15:18 Reading Location: [facility] 3rd Flr P327B Nuc Med Reading Room Procedure Note Interface, External Ris In - 08/11/2019 4:17 PM CDT FINAL REPORT PROCEDURE: TRACER DISTRIBUTION STUDY, WHOLE BODY with SPECT CPT CODE: 98797, 54565 CLINICAL INDICATION: Hepatocellular ca rcinoma PROTOCOL: 2.7 [...] Verified Date/Time: 08/11/2019 1 6:15:18 Reading Location: [facility] 3rd Flr P327B Nuc Med Reading Room Performing Organization Address City/State/Zipcode Phone Number [facility]UAN [facility] IR Embolization Arterial (08/11/2019 11:26 AM CDT)Only the most recent of2 resultswithin the time period is included. Specimen Narrative Performed At FINAL REPORT [facility] Procedure: Transarterial radio-embolizat ion of the liver. [...] dictation for the mapping and treat ment. Hand Alterations Tailor: Randy Radford M.D. Business Banking Sales Assistant: Alex Ospina Modality: Sonography and fluoroscopy. DOSE [...] fluoroscopic guidance. Over the wire a 5 Malawian vascular sheath was placed. The sheath was connected to a he parinized saline drip. Over the wire, a 5 [place]ian reverse curve catheter was placed. This was [...] was injected by Dr. Hill of [facility]. The catheter was then advanced into [...] The patient was then brought [facility] to [facility] iography. A universal timeout was performed prior to starting the procedure. The procedure room personnel used person al protective equipment. The operators used sterile gowns and gloves. The patient was laid supine on the [facility] dure table. Bilateral groins were prepped [...] Report Verified Date/Time: 08/11/2019 15:38:16 Reading Location: [place] [address] Angio Body Reading Room Procedure Note Interface, [...] dictation for the map ping and treatment. Hand Alterations Tailor: Randy Radford M.D. Business Banking Sales Assistant: Alex Ospina Modality: Sonography and fluoroscopy. DOSE [...] fluoroscopic guidance. Over the wire a 5 [place] vascular sheath was placed. The sheath was connected to a he parinized saline drip. Over the wire, a 5 [place] reverse curve catheter was placed. This was [...] was injected by Dr. Hill [facility]. The catheter was then advanced into [...] The patient was laid supine on the [facility] dure table. Bilateral groins were prepped [...] was followed by superselective catheterization of the [facility] hepatic artery branch point with a coaxial [...] Verified Date/Time: 08/11/2019 1 5:38:16 Reading Location: [place] [id number] Angio Body Reading Room Performing Organization Address City/[facility]/Zipcode Phone Number [facility] Bilirubin, direct (08/11/2019 7:36 AM CDT)Only the most recent of2 results within the time period is included. Pathologist Sig nature Bilirubin, Direct 0.3 0.1 - 0.5 mg/dL [facility] Specimen Blood Narrative Performed At Sill Worker ID - [facility] Performing Organization Address City/[facility]/Zipcode Phone Number [address] [address] [place] POC-Creatinine (05/27/2019 9:55 AM CDT) POC-Creatinine 0.8Comment: : 0.6 - 1.3 mg/dL [facility] TESTED AT [address], [id number]: Sill Worker/Technici an ID = [id number] for LokeshventuraJay Mee POC-EGFR 72 mL/min/1.73M2 [facility] Specimen Blood Performing Organization Address City/[facility]/Zipcode Phone Number [address] abdomen without IV contrast (04/15/2019 1:46 PM ROLLER CLEANER) Specimen Narrative Performed At FINAL REPORT RIS TECHNIQUE: CT of the abdomen WITHOUT int [...] Report Verified Date/Time: 04/15/2019 19:39:35 Reading Location: [address] Body R [facility] Room Procedure Note Interface, External Ris In - 04/15/2019 7:41 PM ROLLER CLEANER FINAL REPORT TECHNIQUE: CT of the abdomen [...] Verified Date/Time: 04/15/2019 1 9:39:35 Reading Location: [facility] B1 [id number] CT Body R ding Room Performing Organization Address City/State/Zipcode Phone Number GE RIS Insert peripheral IV (04/15/2019 1:11 PM ROLLER CLEANER) [facility] 1:1 7 PM Interventional Radiology Post Procedu re Note PROCEDURE: TACE INDICATION/ PRE-OP DIAGNOSIS: HCC. POST-OP DIAGNOSIS: Same. IMPLANT: Doxorubicin infused 100mg Oncoz shimon RADIOLOGIST: Dr. Radford ENTERTAINMENT DIRECTOR: [facility] EBL: < 5 cc. SPECIMEN: None CONSCIOUS SEDATION: 1 mg Versed, 50 micr ogram Fentanyl intravenously. APPROACH: R RESORT MANAGER. 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 COMPLICATIONS: None. INSTRUCTIONS: Flat bedrest and restricte d RLE movement for 3 hours, d/c home in 6 hours. *Preliminary Findings Only. Final Report to Follow Willis Dickerson M.D. 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
--- OUTSIDE RECORDS SUMMARY | 2020-03-20 08:21 | XMS REPORT | Continuity of Care Document ---
:1955 Author Organization [facility] t Address [address] [place]. [address] [place] [id number] Care Team Providers Name Role Phone Irma Valles Primary Care Physician Mando Robb MD Attending Clinician MANDO ROBB Attending Clinician Unavailable Luz Hood MD Attending Clinician Rohan Mercer RN Attending Clinician Unavailable Paolo Attending Clinician Unavailable Maureen WALLS Attending Clinician Unavailable SAVANA Attending Clinician Unavailable Savana DENG Attending Clinician Elisabet Macias MD Attending Clinician Sunil Monterroso MD Attending Clinician [phone] Felix Attending Clinician Unavailable Praveen Attending [...] Expiration Date Moriah trimble AETNA - MGD [id number] [address] [facility] CAREAETNA HMO 00:00:00 - Medical POS Center [id number] /2019-PresentHMO /POS Problems Condition Condition Condition Status Onset Resolution Last Treating Co mments Source Name Details Category Date Date Treatment Clinician Date Spontaneou Spontaneou Disease Active 2020- [facility] - bacterial bacterial 00:00: Medi pablito peritoniti peritoniti 00 Ce nter s s Peritoniti Peritoniti Disease Active 2019-[address] [facility]16 [facility] - 00:00: Medical 00 Center Hepatocell Hepatocell Disease Active 2019- [facility] ular ular 9-12 [facility] - carcinoma carcinoma 00:00: Medi pablito 00 Center Hepatocell Hepatocell Disease Active [address] ular ular 5-22 [facility] - carcinoma carcinoma 00:00: Medi pablito 00 Center Type II Type II Disease Active [facility] diabetes diabetes 5-22 [facility] - mellitus mellitus 00:00: Medica l 00 Center Pre-transp Pre-transp Disease Active Last [facility] lant lant 3-20 Assessmen Crystal - evaluation evaluation 00:00: t & Plan: Medical for for She is an Center chronic chronic acceptabl liver liver e disease disease candidate for liver transplan t pending further imaging/t esting and official review at B. Liver Liver Disease Active Last [facility] lesion lesion 3-20 [facility] - 00:00: t & Plan: Medical 00 1.6cm and Center 1.0 cm lesion seen on MRI 03/2018 consisten t with features of HCC confirmed upon radiologi pablito conferenc e review. Hepatolog y and oncology with coordinat e care/connie tment. Cancer Cancer Disease Active [facility] screening screening 03-17 Josue connellyes - 00:00: t & Plan: Medical 00 Cirrhosis Center , regardles s of etiology, is a risk factor for developme nt of hepatocel lular carcinoma with an annual incidence of 1.5-4.5%. We recommend surveilla nce for HCC with abdominal imaging and alphafeto protein every 6 months. MRI and AFP are ordered . Chronic Chronic Disease Active [facility] hepatitis hepatitis 03-11 Assessseth connellyes - C without C without 00:00: t & Plan: M edical hepatic hepatic 00 Continue Center coma coma follow up with hepatolog y for treatment options. Portal Portal Disease Active [facility] hypertensi hypertensi [facility]- [facility] - on on 00:00: t & Plan: Medical 00 Portal Center hypertens ion with evidence by hypersple nism and ascites. Right Right Disease Active [facility] St upper upper 03-11 [facility] quadrant 00:00: t & Plan: Med ical abdominal abdominal [address] pain pain etiology. History of gallstone but no cholecyst itis. Possible etiology is chronic pancreati tis. We will get HIDA scan to assess for functiona l gallbladd er disorder. Immunity Immunity Disease Active Last [facility] S t status status 03-11 [facility] care provider. 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 First diagnosis was in 2011. Other Other Disease Active [facility] ascites ascites 1-03 Ass[facility]men [facility] - 00:00: t & Plan: Medical 00 Control Center d on spironola ctone 50 mg. [...] Active Swelling TONGUE [facility] (Sulfona Allergy 05-19 SWE[facility] 00:00: Medical Antibiot 00 Center ics) Family History Family Member Diagnosis Comments Start Date Stop Date Source Natural father COPD [facility] Natural father Heart disease [facility] Natural mother Heart disease [facility] Social History Social Habit Start Date Stop Date Quantity Comments Source History [facility] - Alcohol Std Drinks Medica Center History [facility] St kes - Alcohol Binge Medical [facility] ter Sex Assigned At [facility] Tobacco use and 2020-03-16 2020-03-16 Never used [facility] - exposure 00:00:00 00:00:00 [facility] Alcohol intake 2020-03-16 2020-03-16 Current [facility] - 00:00:00 00:00:00 non-drinker of Medical Ce nter alcohol (finding) Alcohol Comment 2019-10-28 2019-10-28 NONE SINCE [facility] - 00:00:00 00:00:[facility] History SDOH 2018-08-30 2018-08-[address] [facility] - Alcohol Frequency 00:00:00 00:00:00 Medical Center History of tobacco 2018-05-29 [facility] - use 00:00:00 [facility] Smoking Status Start Date Stop Date Source Former smoker 2020-03-16 00:00:00 2020-03-16 00:00:00 [facility] Medications Ordered Filled Start Stop Current Ordering Indication Dosage Frequency Signature Comments Components Source Medication Medication Date Date Medication? Clinician (SIG) Name Name carvedilol Yes 3.125mg QD Take 3.[address] (COREG) 1-08 mg by [facility]ukes - 3.125 MG 11:07: mouth Medical tablet 20 daily . Center escitalopra Yes Cancer 20mg QD Take [address] m oxalate 03-16 screening by mouth L ukes - (LEXAPRO) 11:07: daily. Medica l 20 MG 20 Center tablet ursodiol Yes Cancer 300mg QD Take [address] (ACTIGALL) 03-16 screening mg by Mahnaz es - 300 mg 11:07: mouth Medical capsule 20 daily . Center omeprazole Yes Cancer 40mg QD Take [address] (PRILOSEC) 03-16 screening by mouth [facility]ukes - 40 MG 11:07: daily. Medical capsule 20 Center colestipol Yes 5g Take [address] (COLESTID) 08 by mouth [facility]ukes - 5 gram 11:07: as needed Medica l granules 20 (FOR Center ITCHING). empaglifloz Yes 10mg QD Take [address] in 03-16 by mouth [facility]ukes - (JARDIANCE) 11:07: daily. Medi pablito 10 mg 20 Center tablet levothyroxi Yes 137ug Take [address] ne 1-08 mcg by [facility]ukes - (SYNTHROID, 11:07: mouth Medic al LEVOTHROID) 20 Every Center 137 MCG morning on tablet an empty stomach. insulin Yes 20U QD Inject 20 [facility] aspart 1-08 Units [facility] - protamine-i 11:[facility]: [facility] ns[facility] 20 usly every Center aspart morning. (NOVOLOG MIX 70-30 U-100 INSULN) 100 unit/mL (70-30) Soln injection insulin Yes 14U QD Inject 14 [facility] t aspart 1-08 Units [facility]ukes - protamine-i 11:07: [facility] nsulin 20 usly every Center aspart evening. (NOVOLOG MIX 70/30) 100 unit/mL (70-30) Soln injection melatonin 3 Yes QD Take by [facility] mg Tab 1-08 mouth [facility] - tablet 11:07: nightly. Medical 20 Center cholecalcif Yes 5000U QD Take 5,[address] markus, 1-08 Units by [facility]ukes - vitamin D3, 11:07: mouth Medic al (VITAMIN D3 20 daily. Center ORAL) Missing or Yes 1{tbl} QD Take [address] Non-Formula 1-08 tablet by Mahnaz es - ry 11:07: mouth Medical Medication 20 daily. Center Missing or Yes 1{tbl} Q.5D Take [address] Non-Formula 1-08 tablet by Mahnaz es - ry 11:07: mouth 2 Medical Medication 20 (two) Center times daily. lidocaine 2020- No 2{patch Q24H Place [address] (LIDODERM) 11-26 10-20 } patches [facility]ukes - 5 % patch 00:00: 23:59 onto the Med ical 00 :00 skin daily Center for 30 days Remove & Discard patch within 12 hours or as directed by MD. traMADoL Yes Cancer 50mg Take 1 [facility] (ULTRAM) 50 -12 screening tablet (50 [facility] - mg tablet 00:00: mg total) Med ical 00 by mouth Center as needed for Pain. HYDROcodone Yes 5{tbl} Take 5-[address] -acetaminop 9-12 tablets by Rosa owens (NORCO 00:00: mouth as Med ical 5-325) 00 needed. Center 5-325 mg per tablet levoFLOXaci 2020- No 500mg QD Take [address] n -02 14-20 tablet [facility]ukes - (LEVAQUIN) 00:00: 00:00 (500 mg Med ical 500 MG 00 :00 total) by Center tablet mouth daily for 4 days. HYDROcodone 0 2020- No 1{tbl} Take [address] -acetaminop -12 -20 tablet by Rosa owens (NORCO 00:00: 00:00 mouth Medic al 5-325) 00 :00 every 6 Center 5-325 mg (six) per tablet hours as needed for Pain for up to 4 days. Max Daily Amount: 4 tablets insulin 2019- 2020- No 20U Inject [address] lispro - 09-11 Units RosaMedigus - protamin-li 07:05: 00:00 subcutaneo Medical spro 48 :00 usly once Center (HUMALOG in 75-25) 100 morning. unit/mL (75-25) InPn injection insulin No 14U QD Inject [address] lispro 11-17 09-11 Units Lukes - protamin-li 07:05: 00:00 subcutaneo Medical spro 21 :00 usly Center (HUMALOG nightly. 75-25) 100 unit/mL (75-25) InPn injection gabapentin No 600mg Q.5D Take [address] (NEURONTIN) 11-17 09-11 mg by [facility]ukes - 600 MG 07:00: 00:00 mouth 2 Medical tablet 48 :00 (two) Center times daily. traMADoL No Cancer 50mg Take [address] [facility] [facility] [...] total) by Center tablet mouth daily. furosemide Other 80mg QD Take [address] (LASIX) 40 10-23 ascites tablets Rosa kes - MG tablet 00:00: 23:59 (80 mg Medic al 00 :00 total) by Center mouth daily. traMADoL No Cancer 50mg Take [address] [facility] [...] No 20U Inject [address] lispro 10-18 Units Lukes - protamin/li 10:57: 00:00 subcutaneo Medical spro 51 :00 usly daily Center (HUMALOG with MIX 75-25 breakfast SUBQ) . insulin 2019- No 18U QD Inject [address] lispro 10-18-12 Units [facility]ukes - protamin-li 10:57: 00:00 [facility] spro 51 :00 usly Center (HUMALOG nightly. [...] times 168,000 daily . unit CpDR gabapentin 2017-03- No 600mg Q.5D Take [address] (NEURONTIN) 03-09 08-12 mg by Crystal - 600 MG 00:00: 00:00 mouth 2 Medical tablet 00 :00 (two) Center times daily . Vital Signs Vital Name Observation Time Observation Value Comments Source Systolic blood 2020-03-16 10:49:00 120 mm[Hg] [facility] Diastolic blood 2020-03-16 10:49:00 51 mm[Hg] [facility] S [facility] Heart rate 2020-03-16 10:49:00 72 /min [facility] Body temperature 2020-03-16 10:49:00 36.61 Regine [facility] Respiratory rate 2020-03-16 10:49:00 20 /min [facility] Oxygen saturation in 2020-03-16 10:49:00 100 /min [facility] - Arterial blood by Medical Ce nter Pulse oximetry Body height 2020-03-16 08:29:00 162.6 cm [facility] Body weight 2020-03-16 08:29:00 80.74 kg [facility] BMI 2020-03-16 08:29:00 30.55 kg/m2 [facility] Procedures Procedure Date / Time Performing Clinician Source Performed US PARACENTESIS 2020-03-16 10:30:00 KylieeriLalo dunbar [facility] BODY FLUID CELL COUNT WITH 2020-03-16 09:50:00 Peggy Robb [facility] US PARACENTESIS 2020-03-08 11:16:00 Peggy Robb [facility] BODY FLUID CELL COUNT WITH 2020-03-08 10:07:00 Peggy Robb [facility] US PARACENTESIS 2020-03-01 09:22:00 Peggy Robb [facility] BODY FLUID CELL COUNT WITH 2020-03-01 08:44:00 Peggy Robb [facility] BODY FLUID CELL COUNT WITH 2020-02-24 09:47:00 Peggy Robb [facility] US PARACENTESIS 2020-02-24 09:45:00 Peggy Robb [facility] PROTHROMBIN TIME/INR 2020-02-24 07:44:00 [facility] APTT 2020-02-24 07:44:00 [facility] CBC W/PLT COUNT & AUTO 2020-02-24 07:44:00 [facility] US PARACENTESIS 2020-02-17 08:52:00 Peggy Robb [facility] BODY FLUID CELL COUNT WITH 2020-02-17 08:30:00 Peggy Robb [facility] US PARACENTESIS 2020-02-10 11:00:00 Peggy Robb [facility] BODY FLUID CELL COUNT WITH 2020-02-10 09:39:00 Peggy Robb [facility] US PARACENTESIS 2020-02-03 09:25:00 Peggy Robb [facility] BODY FLUID CELL COUNT WITH 2020-02-03 08:48:00 Peggy Robb [facility] US PARACENTESIS 2020-01-27 09:19:00 Peggy Robb [facility] BODY FLUID CELL COUNT WITH 2020-01-27 08:49:00 Peggy Robb [facility] US PARACENTESIS 2020-01-20 09:39:00 Peggy Robb [facility] BODY FLUID CELL COUNT WITH 2020-01-20 08:45:00 Peggy Robb [facility] ALPHA FETOPROTEIN (AFP), 2020-01-18 10:17:00 Peggy Robb [facility] TUMOR MARKER [facility] BASIC METABOLIC PANEL (7) 2020-01-18 10:17:00 Peggy Robb [facility] HEPATIC FUNCTION PANEL 2020-01-18 10:17:00 Peggy Robb [facility] PROTHROMBIN TIME/INR 2020-01-18 10:17:00 Peggy Robb [facility] CBC W/PLT COUNT & AUTO 2020-01-18 10:17:00 Peggy Robb [facility] US PARACENTESIS 2020-01-13 11:12:00 Peggy Robb [facility] BODY FLUID CELL COUNT WITH 2020-01-13 10:53:00 Peggy Robb [facility] MR ABDOMEN WITH & WITHOUT 2020-01-06 13:45:00 Peggy Robb [facility] IV CONTRAST [facility] CT CHEST WITHOUT IV 2020-01-06 12:40:00 Peggy Robb [facility] US PARACENTESIS 2020-01-06 11:20:00 Peggy Robb [facility] BODY FLUID CELL COUNT WITH 2020-01-06 10:14:00 Peggy Robb [facility] US PARACENTESIS 2019-12-30 09:49:00 Peggy Robb [facility] BODY FLUID CELL COUNT WITH 2019-12-30 09:13:00 Peggy Robb [facility] PROTHROMBIN TIME/INR 2019-12-30 07:58:[facility] APTT 2019-12-30 07:58:[facility] CBC W/PLT COUNT & AUTO 2019-12-30 07:58:00 [facility] US PARACENTESIS 2019-12-23 09:47:00 Peggy Robb [facility] BODY FLUID CELL COUNT WITH 2019-12-23 09:20:00 Peggy Robb [facility] US PARACENTESIS 2019-12-16 10:03:00 Peggy Robb [facility] BODY FLUID CELL COUNT WITH 2019-12-16 09:49:00 Peggy Robb [facility] US PARACENTESIS 2019-12-09 09:34:00 Peggy Robb [facility] BODY FLUID CELL COUNT WITH 2019-12-09 09:09:00 Peggy Robb [facility] POCT-GLUCOSE METER 2019-11-27 11:51:00 Gilberto [facility] POCT-GLUCOSE METER 2019-11-27 07:37:00 Gilberto [facility] POCT-GLUCOSE METER 2019-11-26 21:30:00 Gilberto [facility] POCT-GLUCOSE METER 2019-11-26 16:14:00 Gilberto [facility] POCT-GLUCOSE METER 2019-11-26 10:52:00 Gilberto [facility] POCT-GLUCOSE METER 2019-11-26 08:00:00 Gilberto, [facility] COMPREHENSIVE METABOLIC 2019-11-26 04:32:00 [facility]/INR 2019-11-26 04:32:00 Timothy Presley [facility] CBC W/PLT COUNT & AUTO 2019-11-26 04:32:[address] [facility] POCT-GLUCOSE METER 2019-11-25 22:31:00 Gilberto [facility] POCT-GLUCOSE METER 2019-11-25 16:38:00 Gilberto, [facility] POCT-GLUCOSE METER 2019-11-25 11:44:00 Gilberto [facility] POCT-GLUCOSE METER 2019-11-25 08:26:00 Gilberto, [facility] COMPREHENSIVE METABOLIC 2019-11-25 04:52:00 Gilberto [facility] POCT-GLUCOSE METER 2019-11-24 20:38:00 Gilberto, [facility] POCT-GLUCOSE METER 2019-11-24 17:25:00 Gilberto [facility] US PARACENTESIS 2019-11-24 16:37:00 Robin Carreno [facility] BODY FLUID CELL COUNT WITH 2019-11-24 16:28:00 Robin Carreno [facility] GLUCOSE PERITONEAL FLUID 2019-11-24 16:17:00 Naty Carreno [facility] BODY FLUID CULTURE + GRAM 2019-11-24 16:17:[address] [facility] PROTHROMBIN TIME/INR 2019-11-24 09:54:00 Gilberto Parkernemesio [facility] SARS-COV2/RT-PCR ([facility] & 2019-11-24 09:51:00 Gilberto Parkernemesio [facility] - REF LABS) [facility] POCT-GLUCOSE METER 2019-11-24 07:36:00 [facility] COMPREHENSIVE METABOLIC 2019-11-24 06:08:00 Aidan Macias [facility] POCT-GLUCOSE METER 2019-11-23 23:45:00 [facility] POCT-GLUCOSE METER 2019-11-23 20:13:00 Gilberto [facility] URINALYSIS W/ REFLEX URINE 2019-11-23 16:24:[address] [facility] METABOLIC 2019-11-23 15:55:00 Aidan Macias [facility] CBC W/PLT COUNT & AUTO 2019-11-23 15:55:00 Aidan Macias [facility] BLOOD CULTURE 2019-11-23 15:54:00 Yosi Rudolph [facility] BODY FLUID CELL COUNT WITH 2019-11-22 17:45:00 Peggy Robb [facility] BODY FLUID CULTURE + GRAM 2019-11-22 17:45:00 Nataly Macias i [facility] US PARACENTESIS 2019-11-22 17:30:00 Peggy Robb [facility] POCT-GLUCOSE METER 2019-11-19 16:44:00 Kadi Wrgiht [facility] POCT-GLUCOSE METER 2019-11-19 11:14:00 Kadi Wright [facility] POCT-GLUCOSE METER 2019-11-19 07:44:00 Zindani, [facility] CBC (HEMOGRAM ONLY) 2019-11-19 04:37:00 Savana Henry [facility] COMPREHENSIVE METABOLIC 2019-11-19 04:37:00 Savana [facility] POCT-GLUCOSE METER 2019-11-18 22:35:00 Savana [facility] POCT-GLUCOSE METER 2019-11-18 18:02:00 Savana [facility] POCT-GLUCOSE METER 2019-11-18 11:23:00 Peggy Robb [facility] CT RFA TUMOR ABLATION 2019-11-18 11:01:00 Peggy Robb [facility] US UNSPECIFIC GUIDANCE 2019-11-18 11:00:00 Randy Radford [facility] INTERVENTIONAL [facility] PROCEDURE DONE OUTSIDE OR 2019-11-18 08:00:00 Virtual, Surgeon C [facility] PROTHROMBIN TIME/INR 2019-11-18 07:27:00 Joellen Cuellar [facility] APTT 2019-11-18 07:27:00 Joellen Cuellar [facility] BASIC METABOLIC PANEL (7) 2019-11-18 07:27:00 Joellen Cuellar [facility] CBC W/PLT COUNT & AUTO 2019-11-18 07:27:00 Joellen Cuellar [facility] ECG 12-LEAD 2019-11-18 06:58:05 Unknown, Hl7 Doctor [facility] SARS-COV2/RT-PCR ([facility] & 2019-11-15 10:04:00 Peggy Robb [facility] - REF LABS) Medical Calcium US PARACENTESIS 2019-11-11 09:35:00 Peggy Robb [facility] BODY FLUID CELL COUNT WITH 2019-11-11 08:44:00 Peggy Robb [facility] CYTOLOGY 2019-11-11 08:21:00 Peggy Robb [facility] US PARACENTESIS 2019-11-01 09:45:00 Peggy Robb [facility] BODY FLUID CELL COUNT WITH 2019-11-01 09:41:00 Peggy Robb [facility] BODY FLUID CELL COUNT WITH 2019-10-19 16:13:00 Peggy Robb [facility] US PARACENTESIS 2019-10-19 15:51:00 Peggy Robb [facility] PT/APTT 2019-10-19 12:04:00 Peggy Robb [facility] CBC W/PLT COUNT & AUTO 2019-10-19 12:04:00 Peggy Robb [facility] NM BONE SCAN WHOLE BODY 2019-10-07 13:53:00 Peggy Robb [facility] ALPHA FETOPROTEIN (AFP), 2019-10-07 12:17:00 Peggy Robb [facility] TUMOR MARKER [facility] BASIC METABOLIC PANEL (7) 2019-10-07 12:17:00 Peggy Robb [facility] HEPATIC FUNCTION PANEL 2019-10-07 12:17:00 Peggy Robb [facility] CBC W/PLT COUNT & AUTO 2019-10-07 12:17:00 Peggy Robb [facility] MR ABDOMEN WITH & WITHOUT 2019-10-07 11:35:00 Peggy Robb [facility] IV CONTRAST [facility] Center CT CHEST WITHOUT IV 2019-10-07 10:47:00 Peggy Robb [facility] CONTRAST [facility] NM TUMOR LOCALIZATION 2019-08-11 15:37:00 Peggy Robb [facility] NM Y90 MICROSPHERES 2019-08-11 15:36:00 Peggy Robb [facility] THERAPY [facility] IR VISCERAL ARTERIOGRAM 2019-08-11 14:40:00 Peggy Robb [facility] NM TUMOR LOCALIZATION 2019-08-11 12:40:00 Peggy Robb [facility] IR EMBOLIZATION ARTERIAL 2019-08-11 11:26:00 Peggy Robb [facility] PROTHROMBIN TIME/INR 2019-08-11 07:36:00 Joellen Cuellar [facility] APTT 2019-08-11 07:36:00 Joellen Cuellar [facility] COMPREHENSIVE METABOLIC 2019-08-11 07:36:00 Joellen Cuellar [facility] BILIRUBIN, DIRECT 2019-08-11 07:36:00 Joellen Cuellar [facility] CBC W/PLT COUNT & AUTO 2019-08-11 07:36:00 Joellen Cuellar [facility] NM TUMOR LOCALIZATION 2019-07-12 17:46:00 Peggy Robb [facility] IR VISCERAL ARTERIOGRAM 2019-07-12 16:00:00 Peggy Robb [facility] PROTHROMBIN TIME/INR 2019-07-12 09:35:00 Joellen Cuellar [facility] APTT 2019-07-12 09:35:00 Joellen Cuellar [facility] COMPREHENSIVE METABOLIC 2019-07-12 09:35:00 Joellen Cuellar [facility] BILIRUBIN, DIRECT 2019-07-12 09:35:00 Joellen Cuellar [facility] CBC W/PLT COUNT & AUTO 2019-07-12 09:35:[address] [facility] ALPHA FETOPROTEIN (AFP), 2019-05-27 11:23:00 Peggy Robb [facility] MARKER [facility] BASIC METABOLIC PANEL (7) 2019-05-27 11:23:00 Peggy Robb [facility] HEPATIC FUNCTION PANEL 2019-05-27 11:23:00 Peggy Robb [facility] PROTHROMBIN TIME/INR 2019-05-27 11:23:00 Peggy Robb [facility] CBC W/PLT COUNT & AUTO 2019-05-27 11:23:00 Peggy Robb [facility] CT CHEST WITHOUT IV 2019-05-27 11:00:00 Peggy Robb [facility] CONTRAST [facility] MR ABDOMEN WITH & WITHOUT 2019-05-27 10:23:00 Peggy Robb [facility] IV CONTRAST [facility] POCT-CREATININE 2019-05-27 09:55:00 Peggy Robb [facility] CT ABDOMEN WITHOUT IV 2019-04-15 13:46:00 Randy Radford [facility] IR EMBOLIZATION ARTERIAL 2019-04-15 13:21:00 Peggy Robb [facility] INSERT PERIPHERAL IV 2019-04-15 13:11:01 [facility] PROTHROMBIN TIME/INR 2019-04-15 08:45:00 [facility] APTT 2019-04-15 08:45:00 [facility] COMPREHENSIVE METABOLIC 2019-04-15 08:45:[address] [facility] PANEL [facility] CBC W/PLT COUNT & AUTO 2019-04-15 08:45:00 [facility] Plan of Care Planned Activity Planned Date Details Comments Source Future Scheduled 2020-05-[address] Mahnaz es - Test 00:00:00 malignant neoplasm of Medica l Center breast (procedure) [code = [id number]] Future Scheduled 2020-04-29 Urine screening for [facility] - Test 00:00:00 protein (procedure) [facility] [code = 447417138] Future Scheduled 2020-03-[address] [facility] - Test 00:00:00 (12+) [code = Medical Center DEPRESSION SCREENING (12+)] Future Scheduled 2019-11-08 INFLUENZA VACCINE (#1) [facility]:00 [code = INFLUENZA Medical Ce nter VACCINE (#1)] Future Scheduled 2018 PNEUMOCOCCAL 65+ YRS [facility] - Test 00:00:00 (1 of 1 - Medical Center [id number] PCV13) [code = PNEUMOCOCCAL 65+ YRS (1 of 1 - [id number] PCV13)] Future Scheduled 2018-08-[address] [facility] - Test 00:00:00 measurement [facility] Center (procedure) [code = 47992827] Future Scheduled 1972 HEPATITIS B VACCINE ([address] [facility] - Test 00:00:00 of 3 - Risk 3-dose Medical C enter series) [code = HEPATITIS B VACCINE (1 of 3 - Risk 3-dose series)] Future Scheduled 1963-10-19 DIABETIC EYE EXAM [facility] - Test 00:00:00 [code = DIABETIC EYE Medical Center EXAM] Future Scheduled 1963-10-[address] [facility] Test [facility]:00 examination Medical Center (regime/therapy) [code = 734310535] Future Scheduled [address] [facility] - Test 00:00:00 malignant neoplasm of [facility]ica l Center colon (procedure) [code = 403325088] Encounters Start End Encounter Admission Attending Care Care Encounter Source Date/Time Date/Time Type Type Clinicians Facility Department ID 2019-05-19 2019-05-19 Office FABIAN Guzman [id number] 08:32:11 10:27:15 Visit Zack Jessica 350.1.13.21 0.2.7.2.686 [id number] 2019-04-29 2019-04-29 Office RAIZA Bennett [id number] 09:48:52 10:51:32 Visit Kiara AMBULATOR 350.1.13.21 Y 0.2.7.2.686 [id number] 2018-12-24 2018-12-24 Office RAIZA Bennett [id number] 07:55:55 09:05:32 Visit Kiara AMBULATOR 350.1.13.21 Y 0.2.7.2.686 [id number] 2018-11-03 2018-11-03 Office RAIZA Ellison [id number] 11:59:08 12:29:08 Visit Evan AMBULATOR 350.1.13.21 Reynold Y 0.2.7.2.686 [id number] 2018-11-03 2018-11-03 Office RAIZA Antony [id number] 11:04:33 11:46:04 Visit Jensen AMBULATOR 350.1.13.21 Lalo Y 0.2.7.2.686 [id number] Results Test Description Test Time Test Comments Results Result [facility] e Comments U/S, PARACENTESIS Referring: Skylar Yao 14:20:00 MeahAdminister 200 mL of albumin 25% [facility] (50 grams) IV x1 - MEDICAL after paracentesis CENTERName: if 3 or more GERARDO, BETH liters YAAKOV : removed.Send 1955 ascitic fluid for Sex: cell count and F differential.Labs to be ordered:->Other FINAL (please add REPORT PATIENT ID: comment)cell count [id number] and diffReason for Ultrasound guided Exam:->HCC, paracentesis, ASCITIS 03/16/2020. Clinical History: Ascites. Sedation: None. Waiter/Waitress Bar: Rose. Social Science Analyst: None. Estimated Blood Loss: < 1 cc. [...] After local anesthesia was achieved with 1% lidocaine, a 5 Burmese one-step catheter was advanced into the peritoneal cavity under ultrasound guidance. After completion of drainage, the catheter was removed. There was no evidence of complication. Patient Disposition: The patient was discharged from the ultrasound department after the paracentesis, in good condition. Impression:Succes sful ultrasound guided paracentesis. Signed: Reynold Greene Verified Date/Time: 03/16/2020 14:20:22 Reading Location: [place] [address] Angio Body Reading Room Ultrasound Interface, [facility] PARACENTESIS 8 External Ris In [facility] - 14:20:00 03/16/2020 2:22 [facility] guided paracentesis, 03/16/2020. Clinical History: Ascites. Sedation: None. Waiter/Waitress Bar: Rose. Social Science Analyst: None. Estimated Blood Loss: < 1 cc. [...] After local anesthesia was achieved with 1% lidocaine, a 5 Burmese one-step catheter was advanced into the peritoneal cavity under ultrasound guidance. After completion of drainage, the catheter was removed. There was no evidence of complication. Patient Disposition: The patient was discharged from the ultrasound department after the paracentesis, in good condition. Impression:Succes sful ultrasound guided paracentesis. Signed: Reynold Greene MDReport Verified Date/Time: 03/16/2020 14:20:22 Reading Location: [place] [id number] [facility] Body Reading Room Body fluid cell count with differential 2020-03-16 12:21:00 Test Item Value Reference Range Interpretation Comme nts Appearance (test code = 9335-1) Slightly Hazy Clear A Color (test code = 6824-7) Straw Colorless, Straw RBCs (test code = 31044-6) 165 <=1 /cu mm H Adjusted WBC Count (test code = 62282-0) 163 <=5 /cu mm H Lining Cells (test code = 03584-6) 10 <=1 /cu mm H % Segs (test code = 20017-6) 68 % % Lymphs (test code = 53100-4) 9 % % Monos (test code = 04059-5) 23 % % Eos (test code = 60726-8) 0 % % Baso (test code = 98734-8) 0 % Container Body Fluid (test code = 2873) Sterile Vial Lab Interpretation (test code = 32785-8) [facility] [id number] 12:21:00 Test Item Value Reference Range Interpretation Comments APPEARANCE FLUID (BEAKER) Slightly Hazy Clear A (test code = 510) COLOR FLUID (BEAKER) (test Straw Colorless, Straw code = 511) RBC FLUID (BEAKER) (test code 165 /cu mm <=1 H = 513) ADJUSTED WBC FLUID (BEAKER) 163 /cu mm <=5 H (test code = 1691) LINING CELLS (BEAKER) (test 10 /cu mm <=1 H code = 1590) NEUTROPHILS FLUID (BEAKER) 68 % (test code = 1656) LYMPHS FLUID (BEAKER) (test 9 % code = 488) MONO/MACROPHAGE FLUID (BEAKER) 23 % (test code = 489) EOSINOPHILS FLUID (BEAKER) 0 % (test code = 491) BASO FLUID (BEAKER) (test code 0 % = 492) CONTAINER BODY FLUID (BEAKER) Sterile Vial (test code = 2873) BODY FLUID CELL COUNT WITH [id number] 14:03:00 Test Item Value Reference Range Interpretation Comments APPEARANCE FLUID (BEAKER) (test Hazy Clear A code = 510) COLOR FLUID (BEAKER) (test code Yellow Colorless, Straw A = 511) RBC FLUID (BEAKER) (test code = 275 /cu mm <=1 H 513) ADJUSTED WBC FLUID (BEAKER) 168 /cu mm <=5 H (test code = 1691) LINING CELLS (BEAKER) (test code 19 /cu mm <=1 H = 1590) NEUTROPHILS FLUID (BEAKER) (test 42 % code = 1656) LYMPHS FLUID (BEAKER) (test code 13 % = 488) MONO/MACROPHAGE FLUID (BEAKER) 45 % (test code = 489) EOSINOPHILS FLUID (BEAKER) (test 0 % code = 491) BASO FLUID (BEAKER) (test code = 0 % 492) CONTAINER BODY FLUID (BEAKER) Sterile Cup (test code = 2873) U/S, [id number] 13:28:00Referring: Dr. Najma Sultanainister 200 mL of albumin 25% (50 grams) IV x1 after paracentesis if 3 or more liters removed.Send ascitic fluid for cell count and differential.Labs to be ordered:->Other (please add comment)cell count and diffReason for Exam:- >HCC, [facility]ITISDELMY [facility] : 1955 Sex: FFINAL REPORT History: Ascites. Procedure: Following informed written consent, the patient'sright lower quadrant was prepped and draped in the usual sterile manner. 2% lidocaine was given locally for anesthesia. No conscious sedation was administered. Using ultrasound guidance and a 5 mauritanian angiocatheter, access was gained to the right lower quadrant peritoneal cavity. Approximately 5900 cc of clear yellow fluid was without incident. Small samples of fluid were submitted for the requested studies. Findings: Images obtained prior the procedure demonstrate a largeamount of anechoic fluid within the peritoneal cavity surrounding multiple loops of bowel. Impression: 1. Successful ultrasound guided paracentesis. Approximately 5900 cc of ascitic fluid was removed without complications. Signed: Nani Clark MDReport Verified Date/Time: 03/08/2020 13:28:46 ReadingLocation: [facility] Radiology Reading Room BODY FLUID CELL COUNT WITH [id number] 12:51:00 Test Item Value Reference Range Interpretation Comments APPEARANCE FLUID (BEAKER) Slightly Hazy Clear A (test code = 510) COLOR FLUID (BEAKER) (test Yellow Colorless, Straw A code = 511) RBC FLUID (BEAKER) (test code 134 /cu mm <=1 H = 513) ADJUSTED WBC FLUID (BEAKER) 143 /cu mm <=5 H (test code = 1691) LINING CELLS (BEAKER) (test 23 /cu mm <=1 H code = 1590) NEUTROPHILS FLUID (BEAKER) 12 % (test code = 1656) LYMPHS FLUID (BEAKER) (test 22 % code = 488) MONO/MACROPHAGE FLUID (BEAKER) 66 % (test code = 489) EOSINOPHILS FLUID (BEAKER) 0 % (test code = 491) BASO FLUID (BEAKER) (test code 0 % = 492) CONTAINER BODY FLUID (BEAKER) EDTA Tube (test code = 2873) U/S, [id number] 12:17:00Referring: Dr. Najma Sultanainishayder 200 mL of albumin 25% (50 grams) IV x1 after paracentesis if 3 or more liters removed.Send ascitic fluid for cell count and differential.Labs to be ordered:->Other (please add comment)cell count and diffReason for Exam:- >HCC[facility]ISDELMY [facility] CENTER[facility]ICOLE : 1955 Sex: FFINAL REPORT Ultrasound guided paracentesis. Clinical History: Ascites. Sedation: None. Waiter/Waitress Bar: Joellen Cuellar PA-C Social Science Analyst: None. Estimated Blood Loss: < 1 cc. [...] was achieved with 2% lidocaine, a 5 Burmese one-step catheter was advanced into the peritoneal cavity under ultrasound guidance. After completion of drainage, the catheter was removed. There was no evidence of complication. Impression:Successful ultrasound guided paracentesis. Signed: Karina Conner MDReport Verified Date/Time: 03/01/2020 12:17:46 Reading Location: [address] Ultrasound Reading Room U/S, [id number] 17:57:00Referring: Dr. Najma Sultanainishayder 200 mL of albumin 25% (50 grams) IV x1 after paracentesis if 3 or more liters removed.Send ascitic fluid for cell count and differential.Labs to be ordered:->Other (please add comment)cell count and diffReason for Exam:- >HCC, [facility]IS[facility] : 1955 Sex: FFINAL REPORT Ultrasound guided paracentesis. Clinical History: Ascites. Sedation: None. Waiter/Waitress Bar: Joellen Cuellar PA-C Social Science Analyst: None. Estimated Blood Loss: < 1 cc. Specimen: 6000 cc of clear yellow fluid, samples sent [...] was achieved with 2% lidocaine, a 5 Burmese one-step catheter was advanced into the peritoneal cavity under ultrasound guidance. After completion of drainage, the catheter was removed. There was no evidence of complication. Impression:Successful ultrasound guided paracentesis. Signed: Reynold Greene Verified Date/Time: 02/24/2020 17:57:43 Reading Location: [facility] P006J Ultrasound Reading Room BODY FLUID CELL COUNT WITH [id number] 12:04:00 Test Item Value Reference Range Interpretation Comments APPEARANCE FLUID (BEAKER) Slightly Hazy Clear A (test code = 510) COLOR FLUID (BEAKER) (test Straw Colorless, Straw code = 511) RBC FLUID (BEAKER) (test code 106 /cu mm <=1 H = 513) ADJUSTED WBC FLUID (BEAKER) 136 /cu mm <=5 H (test code = 1691) LINING CELLS (BEAKER) (test 9 /cu mm <=1 H code = 1590) NEUTROPHILS FLUID (BEAKER) 34 % (test code = 1656) LYMPHS FLUID (BEAKER) (test 26 % code = 488) MONO/MACROPHAGE FLUID (BEAKER) 40 % (test code = 489) EOSINOPHILS FLUID (BEAKER) 0 % (test code = 491) BASO FLUID (BEAKER) (test code 0 % = 492) CONTAINER BODY FLUID (BEAKER) EDTA Tube (test code = 2873) [id number] 08:03:00 Test Item Value Reference Range Interpretation Comments PTT (test code = 30981-7) 32.0 22.5- 36.0 seconds Lab Interpretation (test code = Normal 66303-6) [facility]00 Test Item Value Reference Range Interpretation Comments PARTIAL THROMBOPLASTIN TIME 32.0 seconds 22.5-36.0 (BEAKER) (test code = 760) Prothrombin time/[id number] 08:02:00 Test Item Value Reference Range Interpretation Comments Protime (test code = 15.3 11.9- 14.2 H 5902-2) seconds INR (test code = 1.24 <=5.90 6301-6) JEFF (test code = JEFF) Effective 08/04/2018: PT Reference Range ChangeNew: 11.9-14.2 Previous: 11.7-14.7 RECOMMENDED COUMADIN/WARFARIN INR THERAPY RANGESSTANDARD DOSE: 2.0-3.0 Includes: PROPHYLAXIS for venous thrombosis, systemic embolization; TREATMENT for venous thrombosis and/or pulmonary embolus.HIGH RISK: Target INR is 2.5-3.5 for patients wiht mechanical heart valves. Lab Interpretation Abnormal (test code = 67836-9) [facility]/[id number] 08:02:00 Test Item Value Reference Range Interpretation Comments PROTIME (BEAKER) (test code = 15.3 seconds 11.9-14.2 H 759) INR (NATE) (test code = 370) 1.24 <=5.90 Effective 08/04/2018: PT Reference Range ChangeNew: 11.9-14.2 Previous: 11.7- 14.7RECOMMENDED COUMADIN/WARFARIN INR THERAPY RANGESSTANDARD DOSE: 2.0-3.0 Includes: PROPHYLAXIS for venous thrombosis, systemic embolization; TREATMENT for venous thrombosis and/or pulmonary embolus.HIGH RISK: Target INR is2.5-3.5 for patients wiht mechanical heart valves.CBC with platelet count + automated [id number] 07:53:00 Test Item Value Reference Range Interpretation Comments WBC (test code = 6690-2) 4.4 3.5- 10.5 K/L RBC (test code = 789-8) 3.18 3.93- 5.22 M/L L MCHC (test code = 786-4) 31.8 32.2- 35.5 GM/DL L Hematocrit (test code = 4544-3) 27.7 % 34.1-44.9 L MCV (test code = 787-2) 87.1 fL 79.4-94.8 MCH (test code = 785-6) 27.7 pg 25.6-32.2 RDW (test code = 788-0) 17.5 % 11.7-14.4 H Platelets (test code = 777-3) 74 150- 450 K/CU MM L MPV (test code = 05298-9) 8.8 fL 9.4-12.3 L nRBC (test code = 413) 0 0- 0 /100 WBC % Neutros (test code = 429) 84 % % Lymphs (test code = 430) 5 % % Monos (test code = 431) 10 % % Eos (test code = 432) 1 % % Baso (test code = 437) 0 % # Neutros (test code = 670) 3.70 1.56- 6.13 K/L # Lymphs (test code = 414) 0.23 1.18- 3.74 K/L L # Monos (test code = 415) 0.43 0.24- 0.36 K/L H # Eos (test code = 416) 0.02 0.04- 0.36 K/L L # Baso (test code = 417) 0.01 0.01- 0.08 K/L Immature Granulocytes-Relative 1 % 0-1 (test code = 2801) Lab Interpretation (test code = Abnormal 12641-4) [facility] W/PLT COUNT & AUTO [id number] 07:53:00 Test Item Value Reference Range Interpretation Comments WHITE BLOOD CELL COUNT (BEAKER) 4.4 K/ L 3.5-10.5 (test code = 775) RED BLOOD CELL COUNT (BEAKER) 3.18 M/ L 3.93-5.22 L (test code = 761) HEMOGLOBIN (BEAKER) (test code = 8.8 GM/DL 11.2-15.7 L 410) HEMATOCRIT (BEAKER) (test code = 27.7 % 34.1-44.9 L 411) MEAN CORPUSCULAR VOLUME (BEAKER) 87.1 fL 79.4-94.8 (test code = 753) MEAN CORPUSCULAR HEMOGLOBIN 27.7 pg 25.6-32.2 (BEAKER) (test code = 751) MEAN CORPUSCULAR HEMOGLOBIN CONC 31.8 GM/DL 32.2-35.5 L (BEAKER) (test code = 752) RED CELL DISTRIBUTION WIDTH 17.5 % 11.7-14.4 H (BEAKER) (test code = 412) PLATELET COUNT (BEAKER) (test code 74 K/CU MM 150-450 L = 756) MEAN PLATELET VOLUME (BEAKER) 8.8 fL 9.4-12.3 L (test code = 754) NUCLEATED RED BLOOD CELLS (BEAKER) 0 /100 WBC 0-0 (test code = 413) NEUTROPHILS RELATIVE PERCENT 84 % (BEAKER) (test code = 429) LYMPHOCYTES RELATIVE PERCENT 5 % (BEAKER) (test code = 430) MONOCYTES RELATIVE PERCENT 10 % (BEAKER) (test code = 431) EOSINOPHILS RELATIVE PERCENT 1 % (BEAKER) (test code = 432) BASOPHILS RELATIVE PERCENT 0 % (BEAKER) (test code = 437) NEUTROPHILS ABSOLUTE COUNT 3.70 K/ L 1.56-6.13 (BEAKER) (test code = [...] 0-1 PERCENT (BEAKER) (test code = 2801) BODY FLUID CELL COUNT WITH [id number] 13:47:00 Test Item Value Reference Range Interpretation Comments APPEARANCE FLUID (BEAKER) Slightly Hazy Clear A (test code = 510) COLOR FLUID (BEAKER) (test Straw Colorless, Straw code = 511) RBC FLUID (BEAKER) (test code 158 /cu mm <=1 H = 513) ADJUSTED WBC FLUID (BEAKER) 121 /cu mm <=5 H (test code = 1691) LINING CELLS (BEAKER) (test 28 /cu mm <=1 H code = 1590) NEUTROPHILS FLUID (BEAKER) 8 % (test code = 1656) LYMPHS FLUID (BEAKER) (test 37 % code = 488) MONO/MACROPHAGE FLUID (BEAKER) 55 % (test code = 489) EOSINOPHILS FLUID (BEAKER) 0 % (test code = 491) BASO FLUID (BEAKER) (test code 0 % = 492) CONTAINER BODY FLUID (BEAKER) EDTA Tube (test code = 2873) U/S, [id number] 12:20:00Referring: Dr. Najma Kincaiddminister 200 mL of albumin 25% (50 grams) IV x1 after paracentesis if 3 or more liters removed.Send ascitic fluid for cell count and differential.Labs to be ordered:->Other (please add comment)cell count and diffReason for Exam:- >[facility] : 1955 Sex: FFINAL REPORT Ultrasound guided paracentesis. Clinical History: Ascites. Sedation: None. Waiter/Waitress Bar: Joellen Cuellar PA-C Social Science Analyst: None. Estimated Blood Loss: < 1 cc. [...] was achieved with 2% lidocaine, a 5 Burmese one-step catheter was advanced into the peritoneal cavity under ultrasound guidance. After completion of drainage, the catheter was removed. There was no evidence of complication. Impression:Successful ultrasound guided paracentesis. Signed: Randy Radford Verified Date/Time: 02/17/2020 12:20:34 Reading Location: [address] Ultrasound Reading Room U/S, [id number] 16:35:00Referring: Dr. Najma Sultanainishayder 200 mL of albumin 25% (50 grams) IV x1 after paracentesis if 3 or more liters removed.Send ascitic fluid for cell count and differential.Labs to be ordered:->Other (please add comment)cell count and diffReason for Exam:- >HCC, ASCITISDELMY [facility] : 1955 Sex: FFINAL REPORT Ultrasound guided paracentesis. Clinical History: Ascites. Sedation: None. Waiter/Waitress Bar: Joellen Cuellar PA-C Social Science Analyst: None. Estimated Blood Loss: < 1 cc. Specimen: 5600 cc of clear yellow fluid, samples sent [...] was achieved with 2% lidocaine, a 5 Burmese one-step catheter was advanced into the peritoneal cavity under ultrasound guidance. After completion of drainage, the catheter was removed. There was no evidence of complication. Impression:Successful ultrasound guided paracentesis. Signed: [facility] Verified Date/Time: 02/10/2020 16:35:25 Reading Location: [address] Ultrasound Reading Room BODY FLUID CELL COUNT WITH [id number] 14:19:00 Test Item Value Reference Range Interpretation Comments APPEARANCE FLUID (BEAKER) (test Clear Clear code = 510) COLOR FLUID (BEAKER) (test code = Yellow Colorless, Straw A 511) RBC FLUID (BEAKER) (test code = 92 /cu mm <=1 H 513) ADJUSTED WBC FLUID (BEAKER) (test 55 /cu mm <=5 H code = 1691) LINING CELLS (BEAKER) (test code = 5 /cu mm <=1 H 1590) NEUTROPHILS FLUID (BEAKER) (test 11 % code = 1656) LYMPHS FLUID (BEAKER) (test code = 34 % 488) MONO/MACROPHAGE FLUID (BEAKER) 55 % (test code = 489) EOSINOPHILS FLUID (BEAKER) (test 0 % code = 491) BASO FLUID (BEAKER) (test code = 0 % 492) CONTAINER BODY FLUID (BEAKER) EDTA Tube (test code = 2873) U/S, [id number] 16:06:00Referring: Dr. Najma Sultanainister 200 mL of albumin 25% (50 grams) IV x1 after paracentesis if 3 or more liters removed.Send ascitic fluid for cell count and differential.Labs to be ordered:->Other (please add comment)cell count and diffReason for Exam:- >HCC, ASCITIS, CIRRHOS[facility] : 1955 Sex: FFINAL REPORT Ultrasound guided paracentesis Clinical History: Asc ites. Sedation: None. Waiter/Waitress Bar: Elaine Blake PA-C Supervising Physician: Roger Manning MD Social Science Analyst: None. Estimated Blood Loss: < 1 mL. Specimen: 5400 mL of clear yellow fluid, samples sent to laboratory. Technique: Informed consent was obtained. The risks of pain, blee ding, infection, bowel perforation, injury to adjacent structures, and adverse medication reactions were discussed with the patient. After informed consent was obtained, the patient's abdomen was scanned. The right lower quadrant of the abdomen was selected for paracentesis. After the largest fluid pocket area was marked, and the anterior abdominal wall was evaluated with color Doppler to excludepresence of blood vessels traversing the area, the skin was prepped and draped in the usual sterile manner. After local anesthesia was achieved with lidocaine, a 5 Burmese one-step catheter was advanced into the peritoneal cavity under ultrasound guidance. After completion of drainage, the catheter was removed. There was no evidence of complication. Impression:Successful ultrasound guided paracentesis. Signed: Roger Manning MDReport Verified Date/Time: 02/06/2020 16:06:18 Reading Location: [facility] [id number] Ultrasound Reading Room BODY FLUID CELL COUNT WITH [id number] 14:27:00 Test Item Value Reference Range Interpretation Comments APPEARANCE FLUID (BEAKER) (test Hazy Clear A code = 510) COLOR FLUID (BEAKER) (test code = Yellow Colorless, Straw A 511) RBC FLUID (BEAKER) (test code = 108 /cu mm <=1 H 513) ADJUSTED WBC FLUID (BEAKER) (test 112 /cu mm <=5 H code = 1691) LINING CELLS (BEAKER) (test code 6 /cu mm <=1 H = 1590) NEUTROPHILS FLUID (BEAKER) (test 5 % code = 1656) LYMPHS FLUID (BEAKER) (test code 11 % = 488) MONO/MACROPHAGE FLUID (BEAKER) 84 % (test code = 489) EOSINOPHILS FLUID (BEAKER) (test 0 % code = 491) BASO FLUID (BEAKER) (test code = 0 % 492) CONTAINER BODY FLUID (BEAKER) EDTA Tube (test code = 2873) U/S, [id number] 18:28:00Referring: Dr. Najma Kincaiddminister 200 mL of albumin 25% (50 grams) IV x1 after paracentesis if 3 or more liters removed.Send ascitic fluid for cell count and differential.Labs to be ordered:->Other (please add comment)cell count and diffReason for Exam:- >HCC, ASCITIS, CIRRHOSIS [facility] : 1955 Sex: FFINAL REPORT Ultrasound guided paracentesis Clinical History: Asc ites. Sedation: None. Waiter/Waitress Bar: Elaine Blake PA-C Supervising Physician: Nani Clark MD Social Science Analyst: None. Estimated Blood Loss: < 1 mL. Specimen: 5400 mL of clear yellowfluid, samples sent to [...] anesthesia was achieved with lidocaine, a 5 Burmese one-step catheter was advanced into the peritoneal cavity under ultrasound guidance. After completion of drainage, the catheter was removed. There was no evidence of complication. Impression:Successful ultrasound guided paracentesis. Signed: Nani Clark [facility] Verified Date/Time: 01/27/2020 18:28:37 Reading Location: [facility] [id number] Ultrasound Reading Room BODY FLUID CELL COUNT WITH [id number] 15:27:00 Test Item Value Reference Range Interpretation [...] Sterile Vial (test code = 2873) U/S, [id number] 19:10:00Referring: Dr. Najma Sultanainister 200 mL of albumin 25% (50 grams) IV x1 after paracentesis if 3 or more liters removed.Send ascitic fluid for cell count and differential.Labs to be ordered:->Other (please add comment)cell count and diffReason for Exam:- >HCC, ASCITIS, [facility]RHOSIS [facility] : 1955 Sex: FFINAL REPORT Ultrasound guided paracentesis. Clinical History: As cites. Sedation: None. Waiter/Waitress Bar: Joellen Cuellar PA-C Social Science Analyst: None. Estimated Blood Loss: < 1 cc. [...] was achieved with 2% lidocaine, a 5 Burmese one-step catheter was advanced into the peritoneal cavity under ultrasound guidance. After completion of drainage, the catheter was removed. There was no evidence of complication. Impression:Successful ultrasound guided paracentesis. Signed: Roger Manning MDReport Verified Date/Time:01/20/2020 19:10:27 Reading Location: [facility] P006J Ultrasound Reading Room Electronically signedby: ROGER MANNING MD on 01/20/2020 07:10 PMBODY FLUID CELL COUNT WITH [id number] 14:32:00 Test Item Value Reference Range Interpretation [...] code = 2873) Alpha fetoprotein (AFP), tumor [id number] 12:12:00 Test Item Value Reference Range Interpretation Comments Alpha-Fetoprotein (test 4.8 ng/mL <10.0 code = 1834-1) JEFF (test code = JEFF) Prototyper ID - DANAG Lab Interpretation (test Normal code = 81697-4) [facility]AFP), TUMOR [id number] 12:12:00 Test Item Value Reference Range Interpretation Comments ALPHA-FETOPROTEIN (BEAKER) (test 4.8 ng/mL <10.0 code = 1094) Prototyper ID - DANAGCBC W/PLT COUNT & AUTO [id number] 11:55:00 Test Item Value Reference Range Interpretation [...] (BEAKER) (test code = 2801) Basic Metabolic [id number] 11:54:00 Test Item Value Reference Interpretation Comments Range Sodium (test code = 131 meq/L 136-145 L 2951-2) Potassium (test code 3.4 meq/L 3.5-5.1 L = 2823-3) Chloride (test code 94 meq/L 98-107 L = 2075-0) CO2 (test code = 27 meq/L 22-29 2028-9) BUN (test code = 20 mg/dL 7-21 3094-0) Creatinine (test 1.05 mg/dL 0.57-1.25 code = 2160-0) Glucose (test code = 242 mg/dL 70-105 H 2345-7) Calcium (test code = 8.3 mg/dL 8.4-10.2 L 04890-9) EGFR (test code = 52 mL/min/1.73 sq ESTIMATE D GFR 52036-5) m IS NOT ACCURATE CREATININE CLEARANCE IN PREDICTING GLOMERULAR FILTRATION RATE. ESTIMATED GFR IS NOT APPLICABLE FOR DIALYSIS PATIENTS. JEFF (test code = Prototyper ID - JEFF) Skyler slightly icteric Lab Interpretation Abnormal (test code = 05827-9) [facility] HospitalHepatic function [id number] 11:54:00 Test Item Value Reference Range Interpretation Comments Protein, Total (test 6.1 6.0- 8.3 gm/dL code = 2885-2) Albumin (test code = 3.5 g/dL 3.5-5 74753-5) Total Bilirubin (test 3.1 mg/dL 0.2-1.2 H code = 1974-2) Bilirubin, Direct 1.7 mg/dL 0.1-0.5 H (test code = 1967-7) Alkaline Phosphatase 233 U/L 40-150 H (test code = 6768-6) AST (test code = 31 U/L 5-34 1920-8) ALT (test code = 25 U/L 6-55 1742-6) JEFF (test code = JEFF) Prototyper ID - DANAGSpecimen slightly icteric Lab Interpretation Abnormal (test code = 69704-6) [facility] HospitalBASI METABOLIC [id number] 11:54:00 Test Item Value Reference Range Interpretation [...] S NOT APPLICABLE FOR DIALYSIS PATIEN TS. Prototyper ID - ROSIANGSpecimen slightly ictericHEPATIC FUNCTION [id number] 11:54:00 Test Item Value Reference Range Interpretation [...] (test code = 25 U/L 6-55 347) Prototyper ID - ROSIANGSpecimen slightly ictericPROTHROMBIN TIME/[id number] 11:42:00 Test Item Value Reference Range Interpretation [...] mechanical heart valves.BODY FLUID CELL COUNT WITH [id number] 15:47:00 Test Item Value Reference Range Interpretation [...] EDTA Tube (test code = 2873) U/S, [id number] 11:30:00Referring: Dr. Najma Sultanainister 200 mL of albumin 25% (50 grams) IV x1 after paracentesis if 3 or more liters removed.Send ascitic fluid for cell count and differential.Labs to be ordered:->Other (please add comment)cell count diffReason for Exam:->HCC, ASCITISDELMY [facility] : 1955 Sex: FFINAL REPORT Ultrasound guided paracentesis. Clinical History: As cites. Sedation: None. Waiter/Waitress Bar: Joellen Cuellar PA-C Social Science Analyst: None. Estimated Blood Loss: < 1 cc. [...] was achieved with 2% lidocaine, a 5 Burmese one-step catheter was advanced into the peritoneal cavity under ultrasound guidance. After completion of drainage, the catheter was removed. There was no evidence of complication. Impression:Successful ultrasound guided paracentesis. Signed: Reynold Greene MDReport Verified Date/Time: 01/13/2020 11:30:37 Reading Location: [address] Ultrasound Reading Room BODY FLUID CELL COUNT WITH [id number] 16:17:00 Test Item Value Reference Range Interpretation [...] Cup (test code = 2873) MR, ABDOMEN, [id number] 15:37:00Referring: Dr. Najma Robledo Abdominal VesselsSH[facility]Name[facility] : 1955 [...] endplate of L1. Signed: Jose D Roland [facility] Verified Date/Time: 01/06/2020 15:37:27 MR abdomen without & with IV [id number] 15:37:00Interface, External Ris In - 01/06/2020 3:39 [...] endplate of L1. Signed: Jose D Pichardo MDRun[facility] Verified Date/Time: 01/06/2020 15:37:27 [facility], WITHOUT [id number] 14:49:00Referring: Dr. Najma Broderick [facility] : [...] with mild retropulsion. Signed: Jose D Pichardo MDReport Verified Date/Time: 01/06/2020 14:49:26 CT chest without IV [id number] 14:49:00Interface, External Ris In - 01/06/2020 2:51 [...] with mild retropulsion. Signed: Jose D Pichardo MDReport Verified Date/Time: 01/06/2020 14:49:26 [facility] HospitalU/S, [id number] 13:56:00Referring: Dr. Najma Sultanainister 200 mL of albumin 25% (50 grams) IV x1 after paracentesis if 3 or more liters removed.Send ascitic fluid for cell count and differential.Labs to be ordered:->Other (please add comment)cell count diffReason for Exam:->HCC, ASCITIS [facility] : 1955 Sex: FFINAL REPORT Ultrasound guided paracentesis Clinical History: Asc ites. Sedation: None. Waiter/Waitress Bar: Elaine Blake PA-C Supervising Physician: Karina Conner MD Social Science Analyst: None. Estimated Blood Loss: < 1 mL. [...] anesthesia was achieved with lidocaine, a 5 Burmese one-step catheter was advancedinto the peritoneal cavity under ultrasound guidance. After completion of drainage, the catheter was removed. There was no evidence of complication. Impression:Successful ultrasound guided paracentesis. Signed: Karina Conner MDReport Verified Date/Time: 01/06/2020 13:56:08 Reading Location: [address] Ultrasound Reading Room U/S, [id number] 20:17:00Referring: Dr. Najma Sultanainister 200 mL of albumin 25% (50 grams) IV x1 after paracentesis if 3 or more liters removed.Send ascitic fluid for cell count and differential.Labs to be ordered:->Other (please add comment)cell count and diffReason for Exam:->HCC, ASCITIS [facility] : 1955 Sex: FFINAL REPORT Ultrasound guided paracentesis Clinical History: Asc ites. Sedation: None. Waiter/Waitress Bar: Elaine Blake PA-C Supervising Physician: Andre Frederick MD Social Science Analyst: None. Estimated Blood Loss: < 1 mL. [...] anesthesia was achieved with lidocaine, a 5 Burmese one-step catheter was advanced into the peritoneal cavity under ultrasound guidance. After completion of drainage, the catheter was removed. There was no evidence of complication. Impression:Successful ultrasound guided paracentesis. Signed: Andre Frederick MDReport Verified Date/Time: 12/30/2019 20:17:35 Reading Location: [address] Ultrasound Reading Room BODY FLUID CELL COUNT WITH [id number] 15:41:00 Test Item Value Reference Range Interpretation [...] (BEAKER) Sterile Cup (test code = 2873) [id number] 08:18:00 Test Item Value Reference Range Interpretation Comments PARTIAL THROMBOPLASTIN TIME 33.9 seconds 22.5-36.0 (BEAKER) (test code = 760) PROTHROMBIN TIME/[id number] 08:17:00 Test Item Value Reference Range Interpretation [...] mechanical heart valves.CBC W/PLT COUNT & AUTO [id number] 08:08:00 Test Item Value Reference Range Interpretation [...] PERCENT (BEAKER) (test code = 2801) U/S, [id number] 19:29:00Referring: Dr. Najma Sultanainister 200 mL of albumin 25% (50 grams) IV x1 after paracentesis if 3 or more liters removed.Send ascitic fluid for cell count and differential.Labs to be ordered:->Other (please add comment)cell count and diffReason for Exam:- >HCC, [facility]IS[facility]Name: [facility] : 1955 Sex: FFINAL REPORT Ultrasound guided paracentesis. Clinical History: Ascites. Sedation: None. Waiter/Waitress Bar: Joellen Cuellar PA-C Social Science Analyst: None. Estimated Blood Loss: < 1 cc. [...] was achieved with 2% lidocaine, a 5 Burmese one-step catheter was advanced into the peritoneal cavity under ultrasound guidance. After completion of drainage, the catheter was removed. There was no evidence of complication. Impression:Successful ultrasound guided paracentesis. Signed: Reynold Greene Verified Date/Time: 12/24/2019 19:29:37 Reading Location: [address] Ultrasound Reading Room BODY FLUID CELL COUNT WITH [id number] 15:47:00 Test Item Value Reference Range Interpretation [...] Sterile Vial (test code = 2873) U/S, [id number] 14:31:00Referring: Dr. Nizam MeahAdminister 200 mL of albumin 25% (50 grams) IV x1 after paracentesis if 3 or more liters removed.Send ascitic fluid for cell count and differential.Labs to be ordered:->Other (please add comment)cell count and diffReason for Exam:- >HCC, ASCITISFINAL REPORT Ultrasound guided paracentesis. Clinical History: Ascites. Sedation: None. Waiter/Waitress Bar: Joellen Cuellar PA-C Social Science Analyst: None. Estimated Blood Loss: < 1 cc. [...] was achieved with 2% lidocaine, a 5 Burmese one-step catheter was advanced into the peritoneal cavity under ultrasound guidance. After completion of drainage, the catheter was removed. There was no evidence of complication. Impression:Successful ultrasound guided paracentesis. Signed: Randy Radford Verified Date/Time: 12/16/2019 14:31:43 Reading Location: [address] Ultrasound Reading Room BODY FLUID CELL COUNT WITH [id number] 13:26:00 Test Item Value Reference Range Interpretation [...] = 2873) BODY FLUID CELL COUNT WITH [id number] 15:27:00 Test Item Value Reference Range Interpretation [...] Sterile Cup (test code = 2873) U/S, [id number] 14:56:00Referring: Dr. Najma Sultanainister 200 mL of albumin 25% (50 grams) IV x1 after paracentesis if 3 or more liters removed.Send ascitic fluid for cell count and differential.Labs to be ordered:->Other (please add comment)cell count and diffReason for Exam:- >HCC, ASCITISFINAL REPORT Ultrasound guided paracentesis Clinical History: Ascites. Sedation: None. Waiter/Waitress Bar: Elaine Blake PA-C Supervising Physician: Reynold Greene MD Social Science Analyst: None. Estimated Blood Loss: < 1 mL. [...] anesthesia was achieved with lidocaine, a 5 Burmese one-step catheter was advanced into theperitoneal cavity under ultrasound guidance. After completion of drainage, the catheter was removed.There was no evidence of complication. Impression:Successful ultrasound guided paracentesis. Signed:Reynold Greeneort Verified Date/Time: 12/09/2019 14:56:31 Reading Location: [facility] P006J Ultrasound Reading Room U/S, [id number] 09:23:00Referring: Dr. Najma Sultanainishayder 200 mL of albumin 25% (50 grams) IV x1 after paracentesis if 3 or more liters removed.Send ascitic fluid for cell count and differential.Labs to be ordered:->Other (please add comment)CELL count and diffReason for Exam:->HCC,ASCITISFINAL REPORT Ultrasound guided paracentesis Clinical History: Ascites. Sedation: None. Waiter/Waitress Bar: Elaine Blake PA-C Supervising Physician: Karina Conner MD Social Science Analyst: None. Estimated Blood Loss: < 1 mL. [...] anesthesia was achieved with lidocaine, a 5 Burmese one-step catheter was advanced into the peritoneal cavity under ultrasound guidance. After completion of drainage, the catheter was removed. There was no evidence of complication. Impression:Successful ultrasound guided paracentesis. Signed: Conner, Kaiming MDReport Verified Date/Time: 12/01/2019 09:23:48 Reading Location: [address] UltrasoundReading Room Glucose Peritoneal [id number] 18:11:00 Test Item Value Reference Range Interpretation Comments Glucose, 327 mg/dL Reference Rang e Peritoneal Fluid approximate s that (test code = found in serum. 2347-3) JEFF (test code = Performing Lab JEFF) [employer] [facility] [address] [place] [address] Obdulio Griffith MD, PhD, MOON [facility] HospitalU/S, [id number] 08:30:00Referring: Dr. Najma Hoff to be ordered:->Body Fluid Culture (w/Gram Stain, C\\T\\S)AlbuminLabsto be ordered:->Glucose+LDH+ProteinLabs to be ordered:- >Cell CountLabs to be ordered:->Other (please add comment)Reason for exam:->SBPFINAL REPORT Ultrasound guided paracentesis Clinical History: Ascites. Sedation: None. Waiter/Waitress Bar: Elaine Blake PA-C Supervising Physician: Reynold Greene MD Social Science Analyst: None. Estimated Blood Loss: < 1 mL. [...] anesthesia was achieved with lidocaine, a 5 Burmese one-step catheter was advanced into the p eritoneal cavity under ultrasound guidance. After completion of drainage, the catheter was removed. There was no evidence of complication. Impression:Successful ultrasound guided paracentesis. Signed: Reynold Greene Verified Date/Time: 11/29/2019 08:30:43 Reading Location: [place] [id number] Ultrasound Reading Room Blood Culture - Routine (Left Venipuncture)2019-11-28 19:00:00 Test Item Value Reference Range Interpretation Comments Result (test code = No growth in 5 days 6463-4) [facility] HospitalBLOOD [id number] 19:00:00 Test Item Value Reference Range Interpretation Comments CULTURE (BEAKER) (test No growth in 5 days code = 1095) BODY FLUID CULTURE + GRAM [id number] 12:16:00 Test Item Value Reference Range Interpretation Comments CULTURE (BEAKER) (test code No growth = 1095) GRAM STAIN RESULT (BEAKER) 3+ WBCs (test code = 1123) GRAM STAIN RESULT (BEAKER) No organisms seen (test code = 10836) Body fluid culture + gram [id number] 12:10:00 Test Item Value Reference Range Interpretation Comments Result (test code = 6463-4) No growth Gram Stain Result (test No organisms seen code = 1123) [facility] HospitalBODY FLUID CULTURE + GRAM [id number] 12:10:00 Test Item Value Reference Range Interpretation Comments CULTURE (BEAKER) (test code No growth = 1095) GRAM STAIN RESULT (BEAKER) 3+ WBCs (test code = 1123) GRAM STAIN RESULT (BEAKER) No organisms seen (test code = 24925) POC-Glucose [id number] 12:02:00 Test Item Value Reference Range Interpretation Comments POC-Glucose Meter (test 221 mg/dL 70-110 H : TE STED AT [facility] code = 1538) [address] [facility], 770 30: Prototyper/Techni gianluca ID = [id number] for DAVION WALTON Lab Interpretation (test Abnormal code = 53255-0) [facility] HospitalPOCT-GLUCOSE [id number] 12:02:00 Test Item Value Reference Range Interpretation Comments POC-GLUCOSE METER 221 mg/dL 70-110 H : TESTED A T [facility] 67[address] (BEAKER) (test code [facility], = 1538) [address]: Prototyper/Techni gianluca ID = [id number] for DAVION WALTON POCT-GLUCOSE [id number] 07:49:00 Test Item Value Reference Range Interpretation Comments POC-GLUCOSE METER 144 mg/dL 70-110 H : TESTED A T [facility] 6720 (BEAKER) (test code = [facility], 1538) [address]1961: Prototyper/Techni gianluca ID = [id number] for BRENNAN GURROLA POCT-GLUCOSE [id number] 21:41:00 Test Item Value Reference Range Interpretation Comments POC-GLUCOSE METER 201 mg/dL 70-110 H : TESTED A T [facility] 6720 (BEAKER) (test code = [facility], 1538) 833[address]: Prototyper/Techni gianluca ID = [id number] for MARITZA FLORES POCT-GLUCOSE [id number] 16:29:00 Test Item Value Reference Range Interpretation Comments POC-GLUCOSE METER 122 mg/dL 70-110 H : TESTED A T [facility] 6720 (BEAKER) (test code = [facility], 1538) 13495: Prototyper/Techni gianluca ID = [id number] for Zhang Palacios POCT-GLUCOSE [id number] 11:03:00 Test Item Value Reference Range Interpretation Comments POC-GLUCOSE METER 305 mg/dL 70-110 H : TESTED A T [facility] 6720 (BEAKER) (test code = [facility], 1538) 99902: Prototyper/Techni gianluca ID = [id number] for GOEMZ BLECATIE EscobarA POCT-GLUCOSE [id number] 08:12:00 Test Item Value Reference Range Interpretation Comments POC-GLUCOSE METER 192 mg/dL 70-110 H : TESTED A T [facility] 6720 (BEAKER) (test code = [facility], 1538) 13923: Prototyper/Techni gianluca ID = [id number] for GOMEZ BLET, KRZYSZTOF Comprehensive metabolic [id number] 06:06:00 Test Item Value Reference Range Interpretation Comments Protein, Total (test 5.7 6.0- 8.3 gm/dL L code = 2885-2) Albumin (test code = 3.3 g/dL 3.5-5 L 67092-4) Alkaline Phosphatase 139 U/L 40-150 (test code = 6768-6) Total Bilirubin (test 1.6 mg/dL 0.2-1.2 H code = 1974-2) Sodium (test code = 136 meq/L 305-662 0587-2) Potassium (test code = 4.3 meq/L 3.5-5.1 2823-3) Chloride (test code = 99 meq/L 98-107 2075-0) CO2 (test code = 29 meq/L 22-29 8-9) BUN (test code = 21 mg/dL 7-21 3094-0) Creatinine (test code 0.87 mg/dL 0.57-1.25 = 2160-0) Glucose (test code = 150 mg/dL 70-105 H 2345-7) Calcium (test code = 8.3 mg/dL 8.4-10.2 L 83362-1) AST (test code = 33 U/L 5-34 1920-8) ALT (test code = 39 U/L 6-55 1742-6) EGFR (test code = 65 mL/min/1.73 [place] [address]-7) NOT ACCURATE CREATININE CLEARANCE IN PREDICTING GLOMERULAR FILTRATION RATE . ESTIMATED GFR I S NOT APPLICABLE FOR DIALYSIS PATIENTS. JEFF (test code = JEFF) Prototyper NICOL [place] Lab Interpretation Abnormal (test code = 77855-1) [facility] HospitalCOMPREHENSIVE METABOLIC [id number] 06:06:00 Test Item Value Reference Range Interpretation [...] S NOT APPLICABLE FOR DIALYSIS PATIEN TS. Prototyper ID - AAMIR MPROTHROMBIN TIME/[id number] 05:08:00 Test Item Value Reference Range Interpretation [...] mechanical heart valves.CBC W/PLT COUNT & AUTO [id number] 05:03:00 Test Item Value Reference Range Interpretation [...] PERCENT (BEAKER) (test code = 2801) POCT-GLUCOSE [id number] 22:43:00 Test Item Value Reference Range Interpretation Comments POC-GLUCOSE METER 146 mg/dL 70-110 H : TESTED Alicia Escobar [facility] 67[address] (BEAKER) (test code = [place], 1538) [address]: Prototyper/Techni gianluca ID = [id number] for RE YNOLDS, CHRISTOPHER POCT-GLUCOSE [id number] 17:07:00 Test Item Value Reference Range Interpretation Comments POC-GLUCOSE METER 224 mg/dL 70-110 H : TESTED A T [facility] 6720 (BEAKER) (test code = [facility], 1538) 73541: Prototyper/Techni gianluca ID = [id number] for BRENNAN GURROLA POCT-GLUCOSE [id number] 11:56:00 Test Item Value Reference Range Interpretation Comments POC-GLUCOSE METER 151 mg/dL 70-110 H : TESTED A T [facility] 6720 (BEAKER) (test code = [facility], 1538) 44309: Prototyper/Techni gianluca ID = [id number] for BRENNAN GURROLA POCT-GLUCOSE [id number] 08:37:00 Test Item Value Reference Range Interpretation Comments POC-GLUCOSE METER 119 mg/dL 70-110 H : TESTED A T [facility] 6720 (BEAKER) (test code = [facility], 1538) 34331: Prototyper/Techni gianluca ID = [id number] for Joellen Gómez COMPREHENSIVE METABOLIC [id number] 05:36:00 Test Item Value Reference Range Interpretation [...] S NOT APPLICABLE FOR DIALYSIS PATIEN TS. Prototyper ID - PIAYA LPOCT-GLUCOSE [id number] 20:50:00 Test Item Value Reference Range Interpretation Comments POC-GLUCOSE METER 189 mg/dL 70-110 H : TESTED A T [facility] 6720 (BEAKER) (test code = [facility], 1538) 53864: Prototyper/Techni gianluca ID = [id number] for YULIA WISE POCT-GLUCOSE [id number] 17:38:00 Test Item Value Reference Range Interpretation Comments POC-GLUCOSE METER 334 mg/dL 70-110 H : TESTED A T [facility] 6720 (BEAKER) (test code = [facility], 1538) 09676: Prototyper/Techni gianluca ID = [id number] for JOELLEN COTO BODY FLUID CELL COUNT WITH [id number] 17:34:00 Test Item Value Reference Range Interpretation [...] Not Detected, (test code = Negative, See 68911-6) external report for linked test SARS-COV-2 [facility] HERMILO PERFORMING LAB (test code = 87989-8) JEFF (test code = Negative result for [...] of the Act. Fact Sheet for Healthcare Providers:https://www.CrossTx ideEarDish.InstallFree/sites/default/f rachelle/product/documents/F act_Sheet_HC_Providers_L bgh_XAYZ-IdA-8.pdf Fact Sheet for Healthcare Patients:https://www.[employer] del.com/sites/default/fi les/product/documents/Fa ct_Sheet_Patients_Lyra_S ARS-CoV-2.pdf Performing Laboratory:[facility] [place] [address] [facility] CenterARS-[facility]OV2/RT-PCR ([facility])2019-11-24 15:05:00 Test Item Value Reference Range Interpretation Comments SARS-COV2/RT-PCR (test Negative Not Detected, Negative, code = 6892685) See external report for linked test SARS-COV-[address] [facility] HERMILO (test code = 3819005) Negative result for this test determines that [...] 564(g) of the Act.Fact Sheet for Healthcare Providers:https://www.Hi-Dis(Mosen).com/sites/default/files/product/documents/Fact_Shee b_OB_Infqnbjbb_Mmla_BHXO-DiJ-8.pdfFact Sheet for Healthcare Patients:https://www.[employer]).InstallFree/sites/default/files/product/ documents/Mxsi_Hkpxa_Cgjrqapx_Lgig_HWWJ-UcY-8.pdfPerforming Laboratory:[facility], [place] [address]CFYBLXUGGNP TIME/INR 2019-11-24 10:35:00 Test Item Value Reference [...] is2.5-3.5 for patients wiht mechanical heart valves.POCT-GLUCOSE [id number] 07:53:00 Test Item Value Reference Range Interpretation Comments POC-GLUCOSE METER 131 mg/dL 70-110 H : TESTED A T [facility] 6720 (BEAKER) (test code = LUCITA Kidd [facility], 1538) [address]: Prototyper/Techni gianluca ID = [id number] for ZONIA ISSA COMPREHENSIVE METABOLIC [id number] 07:12:00 Test Item Value Reference Range Interpretation [...] S NOT APPLICABLE FOR DIALYSIS PATIEN TS. Prototyper ID - AAMIR MPOCT-GLUCOSE [id number] 23:59:00 Test Item Value Reference Range Interpretation Comments POC-GLUCOSE METER 121 mg/dL 70-110 H : TESTED A T [facility] 6720 (BEAKER) (test code = [facility], 1538) 64367: Prototyper/Techni gianluca ID = [id number] for CR AFSHIN ALDANA POCT-GLUCOSE [id number] 20:24:00 Test Item Value Reference Range Interpretation Comments POC-GLUCOSE METER 306 mg/dL 70-110 H : TESTED A T [facility] 6720 (BEAKER) (test code = [facility], 1538) 47658: Prototyper/Techni gianluca ID = [id number] for DE SIR YULIA CBC W/PLT COUNT & AUTO [id number] 18:32:00 Test Item Value Reference Range Interpretation [...] = 2801) Urinalysis w/Microscopic + Reflex to [id number] 17:22:00 Test Item Value Reference Range Interpretation Comments Color, UA (test code = Yellow 5778-6) Clarity, UA (test code = Clear 5767-9) Specific [place], UA (test 1.026 1.001-1.035 code = 5811-5) pH, UA (test code = 5.0 5.0-8.0 5803-2) Protein, UA (test code = Negative Negative 04874-8) Glucose, UA (test code = >1000 mg/dL Negative A 365) Ketones, UA (test code = Negative Negative 2514-8) Bilirubin, UA (test code = Negative Negative 04932-1) Blood, UA (test code = Negative Negative 23597-6) Nitrite, UA (test code = Negative Negative 5802-4) Leukocytes, UA (test code Small Negative A = 5799-2) Urobilinogen, UA (test 0.2 mg/dL 0.2-1 code = 29824-9) RBC, UA (test code = 1 /HPF 09404-3) WBC, UA (test code = 1 /HPF 5821-4) Mucus (test code = 8247-9) Rare Squam Epithel, UA (test 1 /HPF code = 31113-3) Specimen Source (test code = 2795) JEFF (test code = JEFF) Prototyper ID - [auto]Prototyper ID - tech Lab Interpretation (test Abnormal code = 12998-2) [facility]UR[facility]/ REFLEX URINE [id number] 17:22:00 Test Item Value Reference Range Interpretation [...] = 516) SOURCE(BEAKER) (test code = 2795) Prototyper ID - [auto]Prototyper ID - techCOMPREHENSIVE METABOLIC [id number] 17:21:00 Test Item Value Reference Range Interpretation [...] S NOT APPLICABLE FOR DIALYSIS PATIEN TS. Prototyper ID - BSSpecimen slightly ictericBODY FLUID CELL [...] (test code = 2873) U/S, UNSPECIFIC GUIDANCE, [id number] 11:30:00FINAL REPORT Please see the report under accession #[id number]. Thank you. Jolie d: Randy Radford Verified Date/Time: 11/21/2019 11:30:50 Reading Location: [place] [address] Angio Body Reading Room US unspecific guidance interventional 2019-11-21 11:30:00Interface, External Ris In - 11/21/2019 11:32 AM CDTFINAL REPORT Please see the report under accession #[id number]. Thank you. Signed: Randy Radford Verified Date/Time: 11/21/2019 11:30:50 Reading Location: [place] [address] Angio Body Reading Room [facility] RFA [id number] 10:38:00Referring: Dr. Najma Parrish for Exam:->hcc,cirrhosisFINAL REPORT [...] ablation was recommended in a tumor board. Waiter/Waitress Bar: Randy Radford MD. Social Science Analyst: Alex Richardson Modality: Ultrasound and CT DOSE [...] in the target. At this time, a4 Burmese centesis needle needle was advanced under the [...] MDReport Verified Date/Time: 11/21/2019 10:38:16 Reading Location: [facility] P048 Angio Body Reading Room CT RFA tumor [id number] 10:38:00Interface, External Ris In - 11/21/2019 10:40 [...] was re commended in a tumor board. Waiter/Waitress Bar: Randy Radford MD. Social Science Analyst: Alex Richardson Modality: Ultrasound and CT DOSE [...] the target. At this time, a 4 Burmese centesis needle needle was advanced under the [...] Radford Verified Date/Time: 11/21/2019 10:38:16 Reading Location: [address] Body [facility] [id number] 08:38:33Interface, External Ris In - 11/21/2019 8:38 AM CDTVentricular Rate 77 BPMAtrial Rate 77 BPMP-R Interval 154 msQRS Duration 92 msQ-T Interval 416 msQTC Calculation(Bazett) 470 msP [place] 80 degreesR [place] 78 degreesT [place] 45 degreesNormal sinus rhythmPossible Anterior infarct 06 Feb 2018Prolonged QTAbnormal ECGWhen compared with ECG of 06-FEB-2018 12:50,QRS axis has shifted from rightQT has lengthenedConfirmed by MD RAYRAY, DANI ([id number]) on 11/21/2019 8:38:28 [facility] POCT-GLUCOSE [id number] 16:57:00 Test Item Value Reference Range Interpretation Comments POC-GLUCOSE METER 237 mg/dL 70-110 H : TESTED A T [facility] 6720 (BEAKER) (test code = YUNIORMIRIAM SHAIKH [place], 1538) 59624: Prototyper/Techni gianluca ID = [id number] for CARLITO HIGHTOWER POCT-GLUCOSE [id number] 11:38:00 Test Item Value Reference Range Interpretation Comments POC-GLUCOSE METER 140 mg/dL 70-110 H : TESTED A T [facility] 6720 (BEAKER) (test code = [facility], 1538) 19181: Prototyper/Techni gianluca ID = [id number] for CARLITO HIGHTOWER POCT-GLUCOSE [id number] 08:11:00 Test Item Value Reference Range Interpretation Comments POC-GLUCOSE METER 134 mg/dL 70-110 H : TESTED A T [facility] 6720 (BEAKER) (test code = [facility], 1538) 57995: Prototyper/Techni gianluca ID = [id number] for CALRITO HIGHTOWER COMPREHENSIVE METABOLIC [id number] 07:36:00 Test Item Value Reference Range Interpretation [...] S NOT APPLICABLE FOR DIALYSIS PATIEN TS. Prototyper ID - AAMIR MSpecimen slightly ictericCB (Hemogram [...] K/CU MM L MPV (test code = 31841-0) 10.5 fL 9.4-12.3 nRBC (test code = 413) 0 0- 0 /100 WBC Lab Interpretation (test code = Abnormal 88135-5) [facility]2019-11-19 04:54:00 Test Item Value Reference [...] WBC 0-0 (test code = 413) POCT-GLUCOSE [id number] 22:54:00 Test Item Value Reference Range Interpretation Comments POC-GLUCOSE METER 335 mg/dL 70-110 H : TESTED A T [facility] 6720 (BEAKER) (test code = [facility], 153) 94327: Prototyper/Techni gianluca ID = [id number] for Sarah Valencia POCT-GLUCOSE [id number] 18:15:00 Test Item Value Reference Range Interpretation Comments POC-GLUCOSE METER 370 mg/dL 70-110 H : TESTED A T [facility] 6720 (BEAKER) (test code = [facility], 153) 13807: Prototyper/Techni gianluca ID = [id number] for RADHA ROGERS POCT-GLUCOSE [id number] 11:34:00 Test Item Value Reference Range Interpretation Comments POC-GLUCOSE METER 151 mg/dL 70-110 H : TESTED A T [facility] 6720 (BEAKER) (test code = [facility], 153) 71089: Prototyper/Techni gianluca ID = [id number] for JOE KILLIAN CBC W/PLT COUNT & AUTO [id number] 09:47:00 Test Item Value Reference Range Interpretation [...] (BEAKER) (test code = 2801) BASIC METABOLIC [id number] 08:36:00 Test Item Value Reference Range Interpretation [...] S NOT APPLICABLE FOR DIALYSIS PATIEN TS. Prototyper ID - ELSA [id number] 07:47:00 Test Item Value Reference Range Interpretation Comments PARTIAL THROMBOPLASTIN TIME 34.5 seconds 22.5-36.0 (BEAKER) (test code = 760) PROTHROMBIN TIME/[id number] 07:46:00 Test Item Value Reference Range Interpretation [...] is2.5-3.5 for patients wiht mechanical heart valves.SARS-COV2/RT-PCR ([facility]) 2019-11-16 11:34:00 Test Item Value Reference Range Interpretation Comments SARS-COV2/RT-PCR (test Negative Not Detected, Negative, code = 3556000) See external report for linked test SARS-COV-2 [facility] (test code = 2909529) Negative result for this test determines that [...] 564(g) of the Act.Fact Sheet for Healthcare Providers:https://www.Hi-Dis(Mosen).InstallFree/sites/default/files/product/documents/Fact_Shee x_JK_Pqhjemxjc_Hzuy_UDHE-YnW-1.pdfFact Sheet for Healthcare Patients:https://www.Hi-Dis(Mosen).com/sites/default/files/product/ documents/Edkv_Obszq_Hbrxxlfy_Zghp_NBKR-LbI-7.pdfPerforming Laboratory:[facility], [place] [id number] 16:58:00 Test Item Value Reference Range Interpretation Comments Case Report (test code Medical Cytology = 104) Report Case: [id number] Authorizing Provider: Peggy Robb MD Collected: 11/11/2019 08:21 AM Ordering Location: [facility] Radiology Main Received: 11/15/2019 09:37 AM Pathologist: Alberto Caba MD Specimen: Peritoneal Fluid DIAGNOSIS (test code = v5heeRZfBBJfl3duTTQgxZ 3220) FuZzEwMzNcZnRuYmpcdWMx IRvciuAaLEyhm9RzY6AmAw AwMFxhbnNpXGRlZmxhbmcx PVJdUNM3ibMtYMShVFyaTP RcYPqtHh8iqPQysBbqPnJq GOYhc3zxedHAqztsjQg3u5 gjUJJwXzI0nLNlBOzdH9us szUbyLWxGYSyCVk7aM10QO TfqR1rwHGkYIilunZlMpU5 WDgwSOAdDoZ9COJgcOYqDD AiL7akBYUhWHchERZlKHnn yKSlMEJ8jFpgk5Y2dBDgsX RblLkbYnIhTrWxZYOXv2Sn HJo0pRhsF0EzPESiQhD4zR QgUGFyYWdyYXBoIEZvbnQ7 kU90JGpnnnP1iKYtu6Sex3 4bq418wX2vuDPiLCH3DTPj BATvuUDsFMByNSC1TPNnjL KhC0a2XgXixAGmD5U7UxMk jBFoS2B5YsUxrWBvZ0Q7Hw HrnANfWNIdfHMaGc7nmCHx jZAnmo5iig33PJF1a3WwdL fvRVV8FZP5SaSxLn9lfIIe MKZoKM9aMoQuuQXwAOFasm 11sVtuLNkimdWceE2rYmDr IAUlgVSuIAAfHE8odQPbLQ GsdN2bzfgdWFUwIrXtvzfo COZheKrooeSaDz5giNioZD D7BZqlN3qxvR6mGgR3WNnt E8dhpY9gDJx1YPooySA1AV RqbM2iBO5fibujc9nzWnDm YY9rinphl7dhLgOqRO5usj k8i7hpZbKnIE6noaech3uk NzIwXGhlYWRlcnkwXGZvb3 IxcmycKCQzx8DzH3TieBio C08mwDosW96fQPKwvPpiqQ 7utMoppN0nBrJyXqVkVUfa bFxwbGFpblxmMVxmczIwXG vbyqptJKKrDJwtM6ztPfVg SEYyaLrsSGwni3EhDODdWV ZzMjAgUEVSSVRPTkVBTCBG CUBVNSRmR6nNX2VUPY1SOY xmiUjlDAVxEGYoUB1VP9GY SCTCASGXDlKGGCqQL92UMm NZXHBhciAgICAgIEZFVyBM QA2CWP1PHSOLHjZQVdNXIH 2IDNDmkl26MQU4NfTjl3A5 QKO8RPGaIGPli1tmOIYynI FuZzEwMzNcZnRuYmpcdWMx XTPqJxSzr9jpe327cCDde6 hhQIPnHuQ0oFAaVYIaaPIb A211XUEuBOowf2nsi4JrSH AiaGVpm7K7UFEXitoojUk8 vSviW67kj6P8BfkaO4hiBR PaEIQlA5EaBE9jDPJsZcl9 VCB2QMJ8GOBhYTIvZ7SpTS 1oHDFzxHGvMAf2j9mccWda VZTgMFW0c5mmVDzopjVzXU 7yvu2deKo5z0tbllVmDEYf LSOuiLOBDSTdB3ThsIfjUi 0fvCc2nXwwQxtlGSK7Fej1 LU5yhl17imr4qWzbQQYcbb glFeU6AMfxNBGrqfvwNEm4 MKmmBZLpgHV2CAGocXYjC4 HfISJyZB0kjkp8QPQ2OVws XYNtXfX3GOFwfBMeLVFbyR bgPYqlc724FOQ6HfTaTQ0r V3Zxt8Z0vH5iuPHtFOAazB LkBhIuBNIoue2npLWqYRib v5WaQYL2gsJ6hNQpwPGeOA MjWwM7OKtiBO9mkw19GGQw GAT6hn1lnTZwaUhdvyMetH KwDUyaG4UwSYMss123OKZt F7McUPAkb2D4kiCsBwGcBK TsbUQ5glL6OGYyBX1tjfxd z6seVXdeHWiqWLLyxtO6jp T4FGCkqRPuG5AdlB8eRSDg IX2kafahr9dtSAI7RRlnOX VlXEX2LwCxDLSla7Bfqrg2 BdWlk3CggJHhEVxiF46zb0 57PNEhlhLcD2gtjTFdllnj dJQaewubFOwyakD8WGLrOA lmbmmjXWQwKIulR5mdWgKc LJPbpUsjHMwps7FjWZGcOZ JyYtMzfLVxJMWlYcm5HUSx eSUcLNJsXlAhX8aqzedoZv WUXZVpm0ubR3zemVEWzKRw E2AiCCzcmlYpFMndYJjgNY UbBFK4FU1mOZLbSpauQSH3 fQ== CPT Code(s) (test code g7pntYIrDJYewJToYgOlEI = 3357) MqGZKde3aoWJZtjJKhSrFt MzNcZnRuYmpcdWMxXGRlZm Hps3rwk888zMShp9fgLSHd AmH4nCLqYEIhrKPvS658r6 hmu2jtrzMrdNU8UJHbCDP2 BVohcvOlmxN1RMjqmAHyFc U2MQxrtyLtMXyovqFzbzSn Xra5HLRhT703OBH6pBqsg5 yyIES3ZAEiYYAlWhDoZa5o cQMjP107HMHgHVDEKYIpfV v5SIOzadLpcwUvkKCLe443 X347m9ocZPJihyMsrUpRkj kto4htP241UXYioYBafxAg VeYrKNNpeEDelNC1XUNkTB 4worqcCyPlDE5knmfcShMi JM6qfmw2FxWbYC6relvrSx UfWYhcKNAgeeyuVBLrk3Ij nlhiMD0gP6Ufg4U9pF3zqV JtAAHbvDUgWhEvAOYgjw6r qDWiDGpir3VoTKU2yfG1eY WxjJQzEGMyVC41Amufd6Yg NeibSPB8PFSrklPnx4Kwa6 naXkLkgwBzJ9jhM9CyOEDc ASPzXDUeXlRmzcRhf8Qtx1 HggVEmjNh2z6isVKPjXLPj bSdqc9nzXKX2CCNfV9S0hP Jrh3cpKTaqASQzqJF9eeov RGxkLAOpzwB4kcjfCQjaYH BcmBS9xrkkECedUOYzFiY0 snzlKOjmLOUaYGM5PHhax7 20PSN3BKxySvycYKopYXZj bmNvbnRccGduZGVjXHBsYW luXHBsYWluXGYwXGZzMjRc tWstbOvndG0tVsOdHkMfVP jpSM0iRLCgR7egzINeHDZw WSXpO7zsLvYilT7omMpzRI clayAyXVo8HGD7NMAuuq7= CLINICAL DATA (test b3ipdTPiYZEckEGcWnBvSZ code = 3355) KoAZChv8zmBILfbFVaRsXj MzNcZnRuYmpcdWMxXGRlZm Ygm0ljt201pZNqg8wqYBPn SqE5vLInGEXbaUOnK676r5 nqg4xiwlWfnJK5OWFuMLB1 RNvwlsGepfZ1VBwysPBdJb G5NPplzeCcEJgggiJcorQz Uyl7LEFxE811IBJ7lNnsx6 ezDQM0EXCdLMDxMtTrFd7k rMZnX118OZGuSMRVTUBrsQ j4BQFxsnFyleGugFQJd671 E005q6kjASKqlbKzsGjHga ihm9dpV862PMGeoHRyxgQh DjVuXOGuaFOhfPN7UEPuTJ 4gebcvLxDyAZ8rztduWlIz SS5ybuh3VmYeUS1cexwkQe TcXIauYFXgsuawAZEuc0Of wchcPC3cT0Rmz3K3yR6ppR ZxIOSpsVIcSvZaWHMaum8p tWWmWFvqd5ZqWRG0yxP7xD HevJAwPYWpTG87Wodst1Dq GmqyRPU3YKXjlzThk1Srj3 vzEoUjsmMvY1sxD7CaLDTr SLChCMTkBdWwmxXvp8Drv2 ZgrJAcsRx0s4kjVKYbDDWy rEqbv0djVUY2DUEaB8S4eK Rev3znCUwvPZVpvBZ6qenz YJjoHALngtY7llpeVTzvLT AtlMZ3vvhtOQabJNUaGrK5 rxzeBLkpYJRfBRT3WGhra9 81XUY3FBgkUbrlATceRYMi bmNvbnRccGduZGVjXHBsYW luXHBsYWluXGYwXGZzMjRc gMysjAvuoS0lHhZjQnAaJA cdMZ9vHRXdY9kstZIrXJQh OOSuX9nnPcKusA1scYycAY vbdtTsSUGtJ3l8KJJrEWfz p3Hdxbdmb3XhjHa9ATSkR0 KyO7DkGBZwej0= SPECIMEN SOURCE (test e7wmqJGnIGHodESpJmXmCX code = 3377) CvAPNnq7eyQSOupJFxDeMd MzNcZnRuYmpcdWMxXGRlZm Bae7kue820tNLvs3mdJIPm NrQ2vNWiAPJxfKKzQ557w6 kkf2brtnLntNH8PREoJBI1 FOxvkpSyrxS7ILlfyMRuPk U1CLspqnOiCCfcdjWrkqOf Crp9KVVhF300RKX3xUmmf2 vyFGL6GTOsAWXdOdMiYc4s dWAkL075FRHvVZKGJFGhmN u1QFHfncNgmfVhtKTQy815 U530x3iyQEIajzAvbNnZjw gaf4pwY613NVJxrBSbnlAv SeAwOFOuiSPzaHY7BODeTM 6drhouJyFzFV6vjtkpGbZy IP4eith7JnYkGY2nxgveIk VkVXkaQPMgyveuFRXng3Pd sxflOG3pM1Fsh2M9vA0feE CoCLIyaBDqAbErXHWsys9w mMCyTFauu4UeOMH7etR4nG UcnWQpOHRxDL81Bhmky7Wq TerhAHG6NJSmjrKch2Bqx9 mzLhPniiHtL6ttW7DmAVIy GVLeSHQoOrDmfjQga3Stm1 IayJZwpXx6q0rbHKUaEMYu lGtfs1odJLI4RRPiZ3J0zT Sht7slEKufFUSibRM5gbvp LDmpCMHilnO2arypJQsrCB FkiNK4ivwkUTerSFPoOtQ8 ieotYEvaFLSqOVV9HVano4 36HOF8LIioJaosCUipTGNc bmNvbnRccGduZGVjXHBsYW luXHBsYWluXGYwXGZzMjRc lClckKrxoL3gAdRnPzBoHL erDH2hMQJgT2aauRQlAQVy DFQpV9rcEcOagE8flQvxBU fxutPsWVLNLuvBH32XTJep RkxVSURccGFyfQ== GROSS DESCRIPTION (test g9unpUEjPSRygQMwTiEqRM code = 3366) TwBUBwd2raYJWswDUhBwAd MzNcZnRuYmpcdWMxXGRlZm Zep0tpl432jLGst7flKANf JcL2vHKpEMRfcPEdC438JN JlFQfak0eja6DfMUFrvSMo r5E0RSJMefpmaGt3sRqzG4 1wp4L3BmfkF1tuPDAaIDWl Y2GyNT0pMZKaNvx1MUE2VU O2HOYqHPThZ0IzEX3bANVc gTTdYGr0y7hmlEkjKXSvFB O6i6xvGDjpznNgZQ2ros5f rEb1v2tntyKgOQQvTBRljT SJUFKsG0ZzjOuqEo5gjGv2 vQpcWntiOPE5Uku8KS9fnx 41tyj3iAljKUMkaylyVtR1 ALnrCUZrkhsgJLc1BPahIV JnbDcyMFxtYXJncjcyMFxt YXJndDcyMFxtYXJnYjcyMF noLPJeHIR2MXvux479SID4 AAraq0rti5xxdCTbFwu9WD SxZvFqAhftLRxqe6Zgf2rj RVEjnz2iUUD1iEIulOytm5 A4pHDyUDQfdWZutrHrMGFq ZkL2EVesFV7fup81GHQcAD Y0xb4tfEZzlRkzmjCbmOJf RHvoL2WtSFOxq172GSYxO8 ObTEWco4N7vkXjIdEpLQVl iGH4mnI2LSVyEDv6xHRrnn Y9tzZetKJgS4tyuE13MxPe dNPsV1NuhS74ZxHavLUgX3 KmxR07YbSmlGYfD8EyrD85 XlQumKPtDWSrtUIiHy3cxG TkuWJuu5PcvMPeTLuvX00s q844MNMlloIfX7peqSLikb wetWTgjrwhTUeqvoT9REBn XHBsYWluXGYxXGZzMjJcbG FuZzEwMzNcaGljaFxmMVxk OjGaOSRmXHznZ1ooUxRdFy WnIeGyUK2phnB7RSiry9ik Bgo3qEW6BKUrZ3e4c5KumZ 2tVSmfw9FrJG4lpLkjLMBp ZWNpbWVuIGZvciBjZWxsIG Tub3CoGJxbMSCwI12tmEBa bYPwGrQiREZ2GrAvcRFxVP FeR1LosiSdCwUcCRX1KqEw cGFyfQ== MICROSCOPIC DESCRIPTION b2jprHDgLEEqeAOvXmHbSZ (test code = 3371) ZhPSSbr5rkAKIkxWRoQdRr MzNcZnRuYmpcdWMxXGRlZm Vot9xhv864yNFjt8gePGPc HaP8kBTaBYJcwXSzD868k6 qom1exotYtqNO3UCKxXYD4 LDrvkyHvryQ0UUejcEZwIv D8IUvopnXoWUktwrCydxQj Hkz6EYGhE880QLR6nRtdl5 grEXN5BKHyUIMoJiIgSg6g vOMkS403SNGjJKPKIZNmpF n7VFXmbvYblwAraMMYp468 H716d5ruOYBfivIlnRkQyq slo2mwH624BGAdtJErkjGy AqYcRKEsgNCklPU6MYShYD 5nnuyjWpJsOQ9hfkuzBtXx PP3hcpv8WyVcWA7rmsvoGf GlHPofFZDmmnudGIHgu8Qj npagEO9hI9Uhm5F8qR6xfR MuHZRkrXJpRsZyTYQkcp4m pIFqABpsk7WiXPJ2epT9hJ KlkOXlAUFxRJ96Frvtv8Jv PrqcAFE0NKGsonBhq1Fym8 emThByihZtB9auM6OwRIKi PQUnNBFzAzIbbyBfq1Rme8 BhpKKxxDs6x7qaSLOvCWXf cLkyz2zhJQA9EHMkF6Q0yH Fhu1hbZMkdRNJgqLW8lkjk XPnuTUBxleY6snzuPOvePU JhiND0nbaqYZfcMPKfFbR8 wsqbPHdbJWAtEGZ8LXkjd3 25LSQ1JSqzMuotTIacLWHb bmNvbnRccGduZGVjXHBsYW luXHBsYWluXGYwXGZzMjRc gClvkDqrrZ0uIfFiOqStCS ckJD2lZDSpO1nniKSeWIYj ZYLkJ6oqQyOzqS5wkOojPN oczzDyAEXoipXcqm6zXV2e cGFyfQ== STATEMENT OF ADEQUACY Satisfactory (test code = 2757) Gross assessment was [facility] performed at ([facility], = 2777) Department of Pathology, [address] [place] [address], Technical component was [facility] performed at ([facility], = 2778) Department of Pathology, [address] [place], [place] [id number], Professional component [facility] was performed at ([facility], code = 2779) Department of Pathology, [address] [place] [address], [facility] 16:58:00Medical Cytology Report Case: [id number] Aut horizing Provider: Peggy Robb MD Collected: 11/11/2019 08:21 AM Ordering Location: [facility] Radiology Main Received: 11/15/2019 09:37 AM Pathologist: Alberto Caba MD Specimen: Peritoneal Fluid PERITONEAL FLUID (CYTOSPINS): - NEGATIVE FOR MALIGNANCY FEW LYMPHOCYTES PRESENT Signing Pathologist Direct Phone Line: [phone] signed by Alberto Caba MD on 11/15/2019 at 4:58 [id number], history of liver cancerPERITONEAL FLUID3 mls yellow fluid; 4 cytospins (not enough specimen for cell block)Collected: [id number]: [id number].[facility], Department of Pathology, [address] [place] [address], [facility], [facility] of [facility]ology, [address] [place] [address], [facility], Department of [facility]ology, [address] [place] [address], Q/S, [id number] 17:07:00Referring: Dr. Najma Sultanainister 200 mL of albumin 25% (50 grams) IV x1 after paracentesis if 3 or more liters removed.Send ascitic fluid for cell count and differential.Labs to be ordered:->Other (please add comment)cell count and diffReason for Exam:->hcc,ascitisFINAL REPORT Ultrasound guided paracentesis Clinical History: Ascites. Sedation: None. Waiter/Waitress Bar: Elaine Blake PA-C Supervising Physician: Nani Clark MD Social Science Analyst: None. Estimated Blood Loss: < 1 mL. [...] anesthesia was achieved with lidocaine, a 5 Burmese one-step catheter was advanced into the peritoneal cavity under ultrasound guidance. After completion of drainage, the catheter was removed. There was no evidence of complication. Impression:Successful ultrasound guided paracentesis. Signed: Nani Reedort Verified Date/Time: 11/11/2019 17:07:03 Reading Location: [address] Ultrasound Reading Room BODY FLUID CELL [...] paracentesis. Clinical History: Ascites. Sedat ion: None. Waiter/Waitress Bar: Joellen Cuellar PA-C Social Science Analyst: None. Estimated Blood Loss: < 1 cc. [...] Manning MDReport Verified Date/Time: 11/01/201916:36:59 Reading Location: [address] Ultrasound Reading Room FLUID CELL COUNT WITH [id number] 12:07:00 Test Item Value Reference Range Interpretation [...] EDTA Tube (test code = 2873) U/S, [id number] 17:27:00Referring: Dr. Najma Sultanainister 200 mL of albumin 25% (50 grams) IV x1 after paracentesis if 3 or more liters removed.Send ascitic fluid for cell count and differential.Labs to be ordered:->Other (please add comment)cell count and diffReason for Exam:->hcc,ascitisFINAL REPORT Ultrasound guided paracentesis Clinical History: Ascites. Sedation: None. Waiter/Waitress Bar: Elaine Blake PA-C Supervising Physician: Nani Clark MD Social Science Analyst: None. Estimated Blood Loss: < 1 mL. [...] anesthesia was achieved with lidocaine, a 5 Burmese one-step catheter was advanced into the peritoneal cavity under ultrasound guidance. After completion of drainage, the catheter was removed. There was no evidence of complication. Impression:Successful ultrasound guided paracentesis. Signed: Nani Reed MDReport Verified Date/Time: 10/28/2019 17:27:59 Reading Location: [address] Ultrasound Reading Room BODY FLUID CELL [...] (BEAKER) EDTA Tube (test code = 2873) PT/[id number] 12:48:00 Test Item Value Reference Range Interpretation Comments Protime (test code = 15.2 11.9- 14.2 H 5902-2) seconds INR (test code = 1.23 <=5.90 6301-6) PTT (test code = 35.1 22.5- 36.0 88057-1) seconds JEFF (test code = JEFF) Effective 08/04/2018: PT Reference Range ChangeNew: 11.9-14.2 Previous: 11.7-14.7 RECOMMENDED COUMADIN/WARFARIN INR THERAPY RANGESSTANDARD DOSE: 2.0-3.0 Includes: PROPHYLAXIS for venous thrombosis, systemic embolization; TREATMENT for venous thrombosis and/or pulmonary embolus.HIGH RISK: Target INR is 2.5-3.5 for patients wiht mechanical heart valves. Lab Interpretation Abnormal (test code = 67119-3) [facility] HospitalPT/[id number] 12:48:00 Test Item Value Reference Range Interpretation [...] mechanical heart valves.CBC W/PLT COUNT & AUTO [id number] 12:34:00 Test Item Value Reference Range Interpretation [...] (BEAKER) (test code = 2801) MR, ABDOMEN, [id number] 19:21:00Referring: Dr. Najma Robledo Abdominal VesselsFINAL REPORT [...] Neely Verified Date/Time: 10/07/2019 19:21:45 Reading Location: [address] Radiology Reading Room BONE AND/OR JOINT IMAGING, WHOLE [id number] 14:24:00Referring: Dr. Najma Underwood REPORT PROCEDURE: BONE SCAN, WHOLE BODY CPT CODE: 05589 INDICATION: Hepatocellular carcinoma, pretransplant evaluation for liver [...] 10/07/2019, bone scan 02/11/2019. Signed: Afua Dove MDRcary Verified Date/Time: 10/07/2019 14:24:47 Reading Location: [place] [id number] [employer] Reading Room NM bone scan whole [id number] 14:24:00Interface, External Ris In - 10/07/2019 2:26 PM CDTFINAL REPORT PROCEDURE: BONE SCAN, WHOLE BODY CPT CODE: 45221 INDICATION: Hepatocellular carcinoma, pretransplant evaluation for liver [...] Dove Verified Date/Time: 10/07/2019 14:24:47 Reading Location: [address] [place] Everywhere Med [facility] T[facility]OR [id number] 13:26:00 Test Item Value Reference Range Interpretation Comments ALPHA-FETOPROTEIN (BEAKER) (test 6.1 ng/mL <10.0 code = 1094) Prototyper ID - NTPHEPATIC FUNCTION [id number] 12:46:00 Test Item Value Reference Range Interpretation [...] (test code = 25 U/L 6-55 347) Prototyper ID - NTPBASIC METABOLIC [id number] 12:46:00 Test Item Value Reference Range Interpretation [...] S NOT APPLICABLE FOR DIALYSIS PATIEN TS. Prototyper ID - NTPCBC W/PLT COUNT & AUTO [id number] 12:27:00 Test Item Value Reference Range Interpretation [...] (test code = 2801) CT, CHEST, WITHOUT [id number] 11:39:00Referring: Dr. Najma Underwood REPORT CT of the Chest dated 10/07/2019 [...] Kern Verified Date/Time: 10/07/2019 11:39:52 Reading Location: [facility] C013Y CT Body Reading Room TUMOR LOCALIZATION, [id number] 16:06:00 Referring: Dr. Najma Broderick Reason for Exam:->HCC,CIRRHOSISFINAL REPORT PROCEDURE: TRACER DISTRIBUTION STUDY - SPECT (Bremsstrahlung) CPT CODE: 88896 CLINICAL INDICATION: Hepatocellular carcinoma PROTOCOL: 35.5 mCi [...] right hepatic artery injection. Signed: Gerry Harrison MDReport Verified Date/Time: 08/12/2019 16:06:26 Reading Location: [address] Nuc Med Reading Room NM tumor localization [id number] 16:06:00Interface, External Ris In - 08/12/2019 4:08 PM CDTFINAL REPORT PROCEDURE: TRACER DISTRIBUTION STUDY - SPECT (Bremsstrahlung) CPT CODE: 91525 CLINICAL INDICATION: Hepatocellular carcinoma PROTOCOL: 35.5 mCi [...] Harrison Verified Date/Time: 08/12/2019 16:06:26 Reading Location: [address] Nuc Med Reading Room [facility], INTRA-ARTERIAL PARTIC [id number] 16:19:00Referring: Dr. Najma Broderick Reason for Exam:->HCC,CIRRHOSISFINAL REPORT PROCEDURE: Y-90 microsphere therapy (SIR-Spheres) CPT CODE: 74634 CLINICAL INDICATION: Hepatocellular carcinoma PROTOCOL:35.5 mCi of a planned 37 mCi dosage of Y-90 labeled microspheres (SIR-Spheres) was administered by the nuclear medicine physician to the right lobe of the liver via a hepatic artery catheter placed by the interventional radiologist. IMPRESSION: Y-90 microsphere therapy Signed: Gerry Harrison Verified Date/Time: 08/11/2019 16:19:17 Reading Location: [address] Nuc Med Reading Room NM Y90 MICROPSHERES THERAPY 2019-08-11 16:19:00Interface, External Ris In - 08/11/2019 4:21 PM CDTFINAL REPORT PROCEDURE: Y-90 microsphere therapy (SIR-Spheres) CPT CODE: 95593 CLINICAL INDICATION: Hepatocellular carcinoma PROTOCOL: 35.5 mCi of a planned 37 mCi dosage of Y-90 labeled microspheres (SIR-Spheres) was administered by the nuclear medicine physician to the right lobe of the liver via a hepatic artery catheter placed by the interventional radiologist. IMPRESSION: Y-90 microsphere therapy Signed: Gerry Harrison Verified Date/Time: 08/11/2019 16:19:17 Reading Location: [facility] 3rd Flr P327B Nuc Med Reading Room [facility] TUMOR LOCALIZATION, MULTI [id number] 16:15:00Referring: Dr. Najma Broderick Reason for Exam:->HCC,CIRRHOSISFINAL REPORT PROCEDURE: TRACER DISTRIBUTION STUDY, WHOLE BODY with SPECT CPT CODE: 78527, 32189 CLINICAL INDICATION: Hepatocellular carcinoma PROTOCOL: 2.7 mCi [...] MDReport Verified Date/Time: 08/11/2019 16:15:18 Reading Location: [facility] 3rd Flr P327B Nuc Med Reading Room NM tumor localization [id number] 16:15:00Interface, External Ris In - 08/11/2019 4:17 PM CDTFINAL REPORT PROCEDURE: TRACER DISTRIBUTION STUDY, WHOLE BODY with SPECT CPT CODE: 85511, 71087 CLINICAL INDICATION: Hepatocellular carcinoma PROTOCOL: 2.7 mCi [...] MDReport Verified Date/Time: 08/11/2019 16:15:18 Reading Location: [address] [facility] Reading [facility], E[facility]IZATION, EXTENSIVE - [id number] 15:38:00Referring: Dr. Najma Dominguez TACEReason for Exam:->HCC,CIRRHOSISFINAL REPORT Procedure: Transarterial radio-embolization of the liver. History: A 63-year-old female with hepatitis C, liver cirrhosis, multifocal hepatocellular carcinoma involving segments 5, 8, 4A, 4B and 3 on the recent MRI. Prior chemoembolization on 08/30/2018 and 04/15/2019 with follow-up MRI on 05/27/2019 showed poor response to chemoembolization. The patient underwent mapping for on July 12, 2019. Due to catheter migration during technetium injection, there was activity of the lesser curvature of the stomach. The patient returned today for re-mapping and treatment of the right lobe in 1 session. This is a combined dictation for the mapping and treatment. Waiter/Waitress Bar: Randy Radford M.D. Social Science Analyst: None., M.D. Modality: Sonography and fluoroscopy. DOSE REDUCTION: The [...] fluoroscopic guidance. Over the wire a 5 Burmese vascular sheath was placed. The sheath was connected to a heparinized saline drip. Over the wire, a 5 Burmese reverse curve catheter was placed. This was [...] MDReport Verified Date/Time: 08/11/2019 15:38:16 Reading Location: [place] [address] Angio Body Reading Room ANG, VISCERAL [id number] 15:38:00Referring: Dr. Najma Parrish for Exam:->HCC,CIRRHOSISFINAL REPORT [...] combined dictation for the mapping and treatment. Waiter/Waitress Bar: Randy Radford M.D. Social Science Analyst: Alex Ospina Modality: Sonography and fluoroscopy. DOSE [...] fluoroscopic guidance. Over the wire a 5 Burmese vascular sheath was placed. The sheath was connected to a heparinized saline drip. Over the wire, a 5 Burmese reverse curve catheter was placed. This was [...] MDReport Verified Date/Time: 08/11/2019 15:38:16 Reading Location: [place] [address] Angio Body Reading Room IR Visceral [id number] 15:38:00Interface, External Ris In - 08/11/2019 3:40 [...] combined dictation for the mapping and treatment. Waiter/Waitress Bar: Randy Radford M.D. Social Science Analyst: Alex Ospina Modality: Sonography and fluoroscopy. DOSE [...] fluoroscopic guidance. Over the wire a 5 Burmese vascular sheath was placed. The sheath was connected to a heparinized saline drip. Over the wire, a 5 Burmese reverse curve catheter was placed. This was [...] 99 [facility] The catheter was then advanced [...] Radford Verified Date/Time: 08/11/2019 15:38:16 Reading Location: [facility] P048 Angio Body [facility] [id number] 15:38:00 Interface, External Ris In - 08/11/2019 [...] combined dictation for the mapping and treatment. Waiter/Waitress Bar: Randy Radford M.D. Social Science Analyst: Alex Ospina Modality: Sonography and fluoroscopy. DOSE [...] fluoroscopic guidance. Over the wire a 5 Burmese vascular sheath was placed. The sheath was connected to a heparinized saline drip. Over the wire, a 5 Burmese reverse curve catheter was placed. This was [...] 99 [facility] The catheter was then advanced into [...] Verified Date/Time: 08/11/2019 15:38:16 Reading Locat ion: [facility] B1 P048 Angio Body Reading Room [facility] PROTHROMBIN TIME/[id number] 08:18:00 Test Item Value Reference Range Interpretation [...] INR is2.5-3.5 for patients wiht mechanical heart valves.[id number] 08:18:00 Test Item Value Reference Range Interpretation Comments PARTIAL THROMBOPLASTIN TIME 33.0 seconds 22.5-36.0 (BEAKER) (test code = 760) CBC W/PLT COUNT & AUTO [id number] 08:06:00 Test Item Value Reference Range Interpretation [...] PERCENT (BEAKER) (test code = 2801) Bilirubin, [id number] 08:05:00 Test Item Value Reference Range Interpretation Comments Bilirubin, Direct (test 0.3 mg/dL 0.1-0.5 code = 1968-7) JEFF (test code = JEFF) Prototyper ID - AAHAMID Lab Interpretation (test Normal code = 55112-4) [facility] [id number] 08:05:00 Test Item Value Reference Range Interpretation [...] S NOT APPLICABLE FOR DIALYSIS PATIEN TS. Prototyper ID - AAHAMIDBILIRUBIN, [id number] 08:05:00 Test Item Value Reference Range Interpretation Comments BILIRUBIN DIRECT (BEAKER) (test 0.3 mg/dL 0.1-0.5 code = 706) Prototyper ID - AAHAMIDANG, VISCERAL [id number] 09:26:00Referring: Dr. Najma Parrish for Exam:->HCC,HCV,CIRRHOSISFINAL REPORT [...] chemoembolization. Y 90 therapy is being considered. Waiter/Waitress Bar: Randy Radford M.D. Social Science Analyst: Alex Boss Modality: Sonography and fluoroscopy DOSE [...] local infiltration Medicines: Not applicable Contrast medium: [id number], 115 cc. Estimated blood loss: < 5 [...] fluoroscopic guidance. Over the wire a 5 Burmese vascular sheath was placed. The sheath was connected to a heparinized saline drip. Over the wire, a 5 Burmese reverse curve catheter was placed. This was [...] lobar. Please note that after injection of wrfsnambiv01 MAA the microcatheter was noted to have [...] MDReport Verified Date/Time: 07/25/2019 09:26:06 Reading Location: [place] [id number] Angio Body Reading Room Electronicallysigned by: RANDY RADFORD MD on 07/25/2019 09:26 AMTUMOR LOCALIZATION, [id number] 15:28:00Referring: Dr. Najma Broderick Reason for Exam:->HCC,HCV,CIRRHOSISFINAL REPORT PROCEDURE: TRACER DISTRIBUTION STUDY, WHOLE BODY with SPECT CPT CODE: 39031, 54384 CLINICAL INDICATION: Hepatocellular carcinoma PROTOCOL: A total [...] in an acceptable range for therapy. Signed: Harrison, Gerry MDReport Verified Date/Time: 07/15/2019 15:28:14 Reading Location: [address] Reading Room COMPREHENSIVE METABOLIC [id number] 10:25:00 Test Item Value Reference Range Interpretation [...] S NOT APPLICABLE FOR DIALYSIS PATIEN TS. Prototyper ID - NTPBILIRUBIN, [id number] 10:25:00 Test Item Value Reference Range Interpretation Comments BILIRUBIN DIRECT (BEAKER) (test 0.3 mg/dL 0.1-0.5 code = 706) Prototyper ID - NTPCBC W/PLT COUNT & AUTO [id number] 10:12:00 Test Item Value Reference Range Interpretation [...] 0-1 PERCENT (BEAKER) (test code = 2801) [id number] 10:05:00 Test Item Value Reference Range Interpretation Comments PARTIAL THROMBOPLASTIN TIME 33.9 seconds 22.5-36.0 (BEAKER) (test code = 760) PROTHROMBIN TIME/[id number] 09:59:00 Test Item Value Reference Range Interpretation [...] for patients wiht mechanical heart valves.MR, ABDOMEN, [id number] 13:08:00 Referring: Dr. Najma Robledo Abdominal VesselsFINAL [...] MDReport Verified Date/Time: 05/27/2019 13:08:16 Reading Location: [facility] Imaging Reading Room - [place] [address] 1129 ALPHA FETOPROTEIN (AFP), TUMOR MARKER 2019-05-27 12:15:00 Test Item Value Reference Range Interpretation Comments ALPHA-FETOPROTEIN (BEAKER) (test 16.8 ng/mL <10.0 H code = 1094) Prototyper ID - NTPCT, CHEST, WITHOUT [id number] 11:55:00Referring: Dr. Najma Underwood REPORT CT OF [...] MDReport Verified Date/Time: 05/27/2019 11:55:12 Reading Location: [address] Radiology Reading Room HEPATIC FUNCTION [id number] 11:53:00 Test Item Value Reference Range Interpretation [...] (test code = 17 U/L 6-55 347) Prototyper ID - NTPBASIC METABOLIC [id number] 11:53:00 Test Item Value Reference Range Interpretation [...] S NOT APPLICABLE FOR DIALYSIS PATIEN TS. Prototyper ID - NTPPROTHROMBIN TIME/[id number] 11:38:00 Test Item Value Reference Range Interpretation [...] mechanical heart valves.CBC W/PLT COUNT & AUTO [id number] 11:31:00 Test Item Value Reference Range Interpretation [...] 0-1 PERCENT (BEAKER) (test code = 2801) [id number] 10:08:00 Test Item Value Reference Range Interpretation Comments POC-Creatinine (test 0.8 mg/dL 0.6-1.3 : TESTE D AT [facility] 6720 code = 1859) [facility] [place], [address]: Prototyper/Techni iganluca ID = [id number] for Mee Roman POC-EGFR (test code 72 mL/min/1.73M2 = 1860) [facility]POCT-[id number] 10:08:00 Test Item Value Reference Range Interpretation Comments POC-CREATININE 0.8 mg/dL 0.6-1.3 : TESTED AT [facility] (BEAKER) (test [address] [place] [address] code = 1859) [place], [address]: Prototyper/Techni gianluca ID = [id number] for Moriah Kowalski POC-EGFR (BEAKER) 72 mL/min/1.73M2 (test code = 1860) CT, ABDOMEN, WITHOUT [id number] 19:39:00Referring: Dr. Najma Amos be performed at [facility] in CT department.Anesthesia:- >NonePlease specify abdominal [...] MDReport Verified Date/Time: 04/15/2019 19:39:35 Reading Location: [facility] C013Y CT Body Reading Room Electronicallysigned by: JOSE D PICHARDO MD on 04/15/2019 07:39 PMCT abdomen without IV [id number] 19:39:00Interface, External Ris In - 04/15/2019 7:41 [...] MDReport Verified Date/Time: 04/15/2019 19:39:35 Reading Location: [facility] C013Y CT Body Reading [facility], EMBOLIZATION, EXTENSIVE - [id number] 16:59:00Referring: Dr. Najma Dominguez TACEReason for Exam:->HCC,hcv,cirrhosisFINAL REPORT Procedure: Transarterial chemoembolization of the liver. History: Liver cirrhosis, hepatitis C, hepatocellularcarcinoma, multifocal, status post treatment the right lobe of the liver on August 30, 2018. Follow-upMRI on 02/11/2019 was discussed in the tumor board and showed active disease in the segment three andfour of the liver. A TACE was recommended. Waiter/Waitress Bar: Randy Radford M.D. Social Science Analyst: Alex Dickerson Modality: Sonography and fluoroscopy. DOSE [...] standard exchanges. Over the wire a 5 Burmese vascular sheath was placed. The sheath was connected to a heparinized saline drip. Over the wire, a 5 Burmese reverse curve catheter was placed. This was [...] Radfordeport Verified Date/Time: 04/15/2019 16:59:24 Reading Location: [place] [address] Angio Body Reading Room Insert peripheral [id number] 13:11:01Willis Dickerson 04/15/2019 1:17 PM Interventional Radiology Post Procedure Note PROCEDURE:TACE INDICATION/ PRE-OP DIAGNOSIS: HCC. POST-OP DIAGNOSIS: Same. IMPLANT: Doxorubicin infused 100mg Oncozene RADIOLOGIST: Dr. Radford [employer] LEVERMAN: Tuan EBL: < 5 cc. SPECIMEN: None CONSCIOUS SEDATION: 1 mg Versed, 50 microgram Fentanyl intravenously. APPROACH: R RESIDENT HALL DIRECTOR. PRELIMINARY FINDINGS: Left hepatic lobe tumor blush s/p LHA injection of doxorubicin infused oncozenes. COMPLICATIONS: None. INSTRUCTIONS: Flat bedrest and restricted RLE movement for 3 hours, d/c home in 6 hours. *Preliminary Findings Only. Final Report to Follow Willis Dickerson M.D.Interventional Radiology Fellow, PGY- 1:11 [facility] [id number] 09:22:00 Test Item Value Reference Range Interpretation [...] S NOT APPLICABLE FOR DIALYSIS PATIEN TS. Prototyper ID - AAMIR [id number] 09:06:00 Test Item Value Reference Range Interpretation Comments PARTIAL THROMBOPLASTIN TIME 31.1 seconds 22.5-36.0 (BEAKER) (test code = 760) PROTHROMBIN TIME/[id number] 09:04:00 Test Item Value Reference Range Interpretation [...] mechanical heart valves.CBC W/PLT COUNT & AUTO [id number] 08:54:00 Test Item Value Reference Range Interpretation [...] (test code = 2801) CT, CHEST, WITHOUT [id number] 15:05:00Referring: Dr. Najma Underwood REPORT TECHNIQUE: CT [...] MDReport Verified Date/Time: 02/23/2019 15:05:09 Reading Location: [address] Radiology Reading Room MR, ABDOMEN, [id number] 15:59:00Referring: Dr. Najma Robledo Abdominal VesselsFINAL REPORT [...] Greene Verified Date/Time: 02/11/2019 15:59:27 Reading Location: [address] RadiologyReading Room BONE AND/OR JOINT IMAGING, WHOLE [id number] 14:35:00Referring: Dr. Najma Broderick FINAL REPORT PROCEDURE: BONE SCAN, WHOLE BODY CPT CODE: 68359 INDICATION: Hepatocellular carcinoma PROTOCOL: 21.4 mCi of [...] rd Verified Date/Time: 02/11/2019 14:35:45 Reading Location: [address] [address] Med Reading Room ALPHA FETOPROTEIN (AFP), TUMOR MARKER 2019-02-11 11:40:00 Test Item Value Reference Range Interpretation Comments ALPHA-FETOPROTEIN (BEAKER) (test 6.8 ng/mL <10.0 code = 1094) HEPATIC FUNCTION [id number] 11:01:00 Test Item Value Reference Range Interpretation [...] = 17 U/L 6-55 347) BASIC METABOLIC [id number] 11:01:00 Test Item Value Reference Range Interpretation [...] S NOT APPLICABLE FOR DIALYSIS PATIEN TS. [id number] 10:54:00 Test Item Value Reference Range Interpretation Comments POC-CREATININE 0.7 mg/dL 0.6-1.[address] [facility] 67[address] (BEAKER) (test [place] code = 1859) [address] POC-EGFR (BEAKER) 84 mL/min/1.73M2 (test code = 1860) CBC W/PLT COUNT & AUTO [id number] 10:47:00 Test Item Value Reference Range Interpretation [...] PERCENT (BEAKER) (test code = 2801) PROTHROMBIN [id number] 10:42:00 Test Item Value Reference Range Interpretation [...] is2.5-3.5 for patients wiht mechanical heart valves.TISSUE [id number] 11:15:00Surgical Pathology Report Case: [id number] Authorizing Provider: Joe Turpin Collected: 01/06/2019 Ruby Patel MD [facility]ingLocation[facility] Endoscopy Received: 01/07/2019 0815 Services Pathologist: Sheila Hamilton MD Specimen: Polyp, Colon - Rectosigmoid, TAKEN BY ESD, ON FOAM, EVALUATE MARGINS A. 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 CM - NEGATIVE FOR HIGH-GRADE DYSPLASIA/ MALIGNANCY - MARGINS, FREE OF ADENOMATOUS EPITHELIUM Signing Pathologist Direct Phone Line: [phone] signed by Sheila Hamilton MD on 01/12/2019 at 11:15 [id number] polyp of sigmoid colon Polyp, colon-rectosigmoid, taken [...] .Ink code: Blue-radial margin, black-deep margin.CG/ew Performed.POCT-GLUCOSE [id number] 11:46:00 Test Item Value Reference Range Interpretation Comments POC-GLUCOSE METER 129 mg/dL 70-110 H : [facility] (BEAKER[facility] (test code = [place], 1538) [address]: Prototyper/Techni gianluca ID = [id number] for SHEEBA BROWN ALPHA FETOPROTEIN (AFP), TUMOR [id number] 12:27:00 Test Item Value Reference Range Interpretation Comments ALPHA-FETOPROTEIN (BEAKER) (test 4.9 ng/mL <10.0 code = 1094) CT, CHEST, WITHOUT [id number] 12:02:00Referring: Dr. Najma Underwood REPORT TECHNIQUE: CT [...] Pichardo MDReport Verified Date/Time: 11/05/2018 12:02:36 Reading Location:[address] Radiology Reading Room , ABDOMEN, [id number] 11:38:00Referring: Dr. Najma Robleod Abdominal VesselsFINAL REPORT TECHNIQUE: MRI of the [...] 6.Cirrhosis with splenomegaly. Signed: Jose D Pichardo [facility] Verified Date/Time: 11/05/2018 11:38:54 Reading Location: [address] Radiology Reading Room -[id number] 10:06:00 Test Item Value Reference Range Interpretation Comments POC-CREATININE 0.7 mg/dL 0.6-1.[address] [facility] 67[address] ([facility]) ([facility] [place] code = 4764) [address] POC-EGFR ([facility]) 84 mL/min/1.73M2 (test code = 1860) HEPATIC FUNCTION [id number] 10:00:00 Test Item Value Reference Range Interpretation Comments TOTAL PROTEIN ([facility]) (test code = 6.7 gm/dL 6.0-8.3 770) ALBUMIN ([facility]) (test code = 1145) 3.5 g/dL 3.5-5.0 BILIRUBIN TOTAL (BEAKER) (test code 0.7 mg/dL 0.2-1.2 = 377) BILIRUBIN DIRECT (BEAKER) (test 0.4 mg/dL 0.1-0.5 code = 706) ALKALINE PHOSPHATASE (BEAKER) (test 120 U/L 40-150 code = 346) AST (SGOT) (BEAKER) (test code = 21 U/L 5-34 353) ALT (SGPT) (BEAKER) (test code = 16 U/L 6-55 347) BASIC METABOLIC [id number] 10:00:00 Test Item Value Reference Range Interpretation [...] NOT APPLICABLE FOR DIALYSIS PATIEN TS. PROTHROMBIN [id number] 09:49:00 Test Item Value Reference Range Interpretation [...] mechanical heart valves.CBC W/PLT COUNT & AUTO [id number] 09:40:00 Test Item Value Reference Range Interpretation [...] code = 2801) ANG, EMBOLIZATION, EXTENSIVE - [id number] 17:43:00Referring: Dr. Najma Dominguez TACEReason for Exam:->HCC,HCV,CIRRHOSISFINAL [...] inch guide wire was advanced. A 5 Burmese sheath was utilized. A 5 mauritanian Alfredo catheter was placed selectively into the celiac axis. A 3 Burmese microcatheter was super selectively advanced coaxially into [...] MDReport Verified Date/Time: 08/30/2018 17:43:13 Reading Location: [facility] P048 Angio Body Reading Room COMPREHENSIVE METABOLIC [id number] 11:13:00 Test Item Value Reference Range Interpretation [...] NOT APPLICABLE FOR DIALYSIS PATIEN TS. BILIRUBIN, [id number] 11:13:00 Test Item Value Reference Range Interpretation Comments BILIRUBIN DIRECT (BEAKER) (test 0.4 mg/dL 0.1-0.5 code = 706) [id number] 11:07:00 Test Item Value Reference Range Interpretation Comments PARTIAL THROMBOPLASTIN TIME 32.1 seconds 22.5-36.0 (BEAKER) (test code = 760) PROTHROMBIN [id number] 11:06:00 Test Item Value Reference Range Interpretation [...] mechanical heart valves.CBC W/PLT COUNT & AUTO [id number] 10:54:00 Test Item Value Reference Range Interpretation [...] (BEAKER) (test code = 2801) MR, ABDOMEN, [id number] 10:23:00Referring: Dr. Najma Robledo Abdominal VesselsFINAL REPORT [...] MDReport Verified Date/Time: 07/16/2018 10:23:16 Reading Location: [address] Consult Reading Room HEPATITIS A ANTIBODY, [id number] 08:32:00 Test Item Value Reference Range Interpretation Comments HEPATITIS A IGM ANTIBODY (BEAKER) Nonreactive Nonreactive (test code = 498) ALPHA FETOPROTEIN (AFP), TUMOR [id number] 08:27:00 Test Item Value Reference Range Interpretation Comments ALPHA-FETOPROTEIN (BEAKER) (test 14.2 ng/mL <10.0 H code = 1094) HEPATITIS A ANTIBODY, [id number] 08:27:00 Test Item Value Reference Range Interpretation Comments HEPATITIS A IGG ANTIBODY (BEAKER) Nonreactive Nonreactive (test code = 2797) HEPATIC FUNCTION [id number] 08:08:00 Test Item Value Reference Range Interpretation [...] = 18 U/L 6-55 347) BASIC METABOLIC [id number] 08:08:00 Test Item Value Reference Range Interpretation [...] NOT APPLICABLE FOR DIALYSIS PATIEN TS. PROTHROMBIN TIME/[id number] 08:02:00 Test Item Value Reference Range Interpretation [...] = 2801) BONE AND/OR JOINT IMAGING, WHOLE [id number] 15:39:00Referring: Dr. Najma Underwood REPORT PROCEDURE: BONE SCAN, WHOLE BODY CPT CODE: 89929 INDICATION: Hepatocellular carcinoma, preoperative evaluation for liver [...] and today's chest CT. Signed: Gerry Harrison Verified Date/Time: 06/02/2018 15:39:33 Reading Location: [address] CT, CHEST, WITHOUT CONTRAST [...] Kelsey Verified Date/Time: 06/02/2018 11:25:36 Reading Location: [address] Radiology Reading Room RAD, BONE DENSITY [id number] 10:39:00Referring: Dr. Najma Broderick Reason for Exam:->HCC,HCV,CIRRHOSIS,PRE [...] vertebral column within normal limits. Signed: Rajesh Kelseyort Verified Date/Time: 06/02/2018 10:39:30 Reading Location: [address] Radiology Reading Room OIN-3-NNTAIFVLXAL QUANTITATION & [id number] 09:08:00 Test Item Value Reference Range Interpretation Comments [id number]-7-[id number] (QUEST) (test code = 2630363) A-1 ANTITRYP PHENOTYP (QUEST) (test code = 2245630) ANTI-NUCLEAR ANTIBODY (SHARYN)2018-05-29 10:41:00 Test Item Value Reference Range Interpretation Comments ANTI-NUCLEAR ANTIBODY (SHARYN) (BEAKER) Negative Negative (test code = 418) Test performed by IFA method.Test performed by IFA method.HEPATITIS B PCR, [id number] 07:20:00 Test Item Value Reference Range Interpretation Comments HBV RESULT COMPONENT HBV DNA not detected HBV DNA not detected (BEAKER) (test code = 2701) This test uses a Real-Time Polymerase Chain Reaction (RT-PCR) methodology and was performed using [employer] AmpliPrep/KIKE TaqMan HBV Test, v2.0 ([employer]Reportable range for this assay is 20 - 170,000,000 IU per mL (1.30 - 8.23 Log IU/mL).MISCELLANEOUS LAB [id number] 08:56:00 Test Item Value Reference Range Interpretation Comments SCAN RESULT (test code = 4396647) HEMOGLOBIN [id number] 10:40:00 Test Item Value Reference Range Interpretation Comments HEMOGLOBIN A1C (BERED) (test code = 9.6 % 4.3-6.1 H 368) [id number] 21:06:00 Test Item Value Reference Range Interpretation Comments T4 TOTAL (BERED) (test code = 12.8 ug/dL 4.9-11.7 H 895) [id number] 14:28:00 Test Item Value Reference Range Interpretation Comments RPR SCREEN (BERED) (test code = Nonreactive Nonreactive 420) MM, DIGITAL, MAMMO, SCREENING, BILATERAL INCLUDING [id number] 13:45:00 Referring: Dr. Najma Jasmineiagnostic workup per radiologist?->YesReason for Exam:->HCC,HCV,CIRRHOSIS,PRE TRANSPLANT EVALMRN#: [id number] - MM, DIGITAL, MAMMO, SCREENING, BILATERAL INCLUDING [...] 2 Benign G0202 RAD, MANDIBLE, MIN 4 [id number] 13:28:00Referring: Dr. Najma Parrish for Exam:->HCC,HCV,CIRRHOSIS,PRE TRANSPLANT EVALFINAL REPORT Mandible dated 05/26/2018 Comment: 4 views of the mandible were s ubmitted for interpretation. Body, angle, and coronoid process of the mandible are intact without fracture. TMJs were obtained bilaterally. No osteolytic lesion or periodontal abscess noted. Impression: Unremarkable mandibular examination. Signed: Su Kern Verified Date/Time: 05/26/2018 1 3:28:38 Reading Location: [address] Radiology Reading Room FERRITIN 2018-05-26 12:44:00 Test Item Value Reference Range Interpretation Comments FERRITIN (BEAKER) (test code = 361) 20 ng/mL 5-275 HEPATITIS B CORE ANTIBODY, [id number] 11:53:00 Test Item Value Reference Range Interpretation Comments HEPATITIS B CORE TOTAL ANTIBODY Reactive Nonreactive A (BEAKER) (test code = 497) HEPATITIS C [id number] 11:52:00 Test Item Value Reference Range Interpretation Comments HEPATITIS C ANTIBODY (BEAKER) (test Reactive Nonreactive A code = 367) URINALYSIS W/ [id number] 11:39:00 Test Item Value Reference Range Interpretation [...] SOURCE(BEAKER) (test code = 2795) CYTOMEGALOVIRUS ANTIBODY, [id number] 11:31:00 Test Item Value Reference Range Interpretation Comments CYTOMEGALOVIRUS, IGG (BEAKER) Positive Negative, Equivocal A (test code = 3429) CMV IgG Result Interpretation: </= 0.8 Al Negative 0.9-1.0 Al Equivocal >/=1.1 Al PositiveCYTOMEGALOVIRUS ANTIBODY, [id number] 11:31:00 Test Item Value Reference Range Interpretation Comments CYTOMEGALOVIRUS IGM ANTIBODY Negative Negative, Equivocal (BEAKER) (test code = 3437) CMV IgM Result Interpretation: </= 0.8 Al Negative 0.9-1.0 Al Equivocal >/= 1.1 Al PositiveEBV ANTIBODY, [id number] 11:31:00 Test Item Value Reference Range Interpretation Comments SIMON GIBBS VIRAL CAPSID Positive Negative, Equivocal A ANTIGEN IGG (ShareHows) (test code = 3415) Simon Gibbs Viral Capsid Antigen IgG Result Interpretation: </= 0.8 Al Negative 0.9-1.0 Al Equivocal >/= 1.1 Al PositiveEBV ANTIBODY, IGM 2018-05-26 11:31:00 Test Item Value Reference Range Interpretation Comments SIMON GIBBS VIRAL CAPSID Negative Negative, Equivocal ANTIGEN IGM ([employer]How[employer]) (test code = 3418) Simon Gibbs Viral Capsid Antigen IgM Result Interpretation: </= 0.8 Al Negative 0.9-1.0 Al Equivocal >/= 1.1 Al PositiveHEPATITIS B SURFACE [id number] 10:20:00 Test Item Value Reference Range Interpretation Comments HEPATITIS B SURFACE ANTIBODY < mIU/mL <8.0 (MindSnacksAKER) (test code = 647) [id number] 10:05:00 Test Item Value Reference Range Interpretation Comments THYROID STIMULATING HORMONE 0.11 uIU/mL 0.35-4.94 L (MindSnacksAKER) (test code = 772) HEPATITIS B SURFACE [id number] 09:45:00 Test Item Value Reference Range Interpretation Comments HEPATITIS B SURFACE ANTIGEN (2) Nonreactive Nonreactive (BEAKER) (test code = 2585) HEPATITIS B CORE ANTIBODY, [id number] 09:45:00 Test Item Value Reference Range Interpretation Comments HEPATITIS B CORE IGM ANTIBODY Nonreactive Nonreactive (BEAKER) (test code = 645) HEPATITIS A ANTIBODY, [id number] 09:42:00 Test Item Value Reference Range Interpretation Comments HEPATITIS A IGG ANTIBODY (BEAKER) Reactive Nonreactive A (test code = 2797) HIV-1 ANTIGEN WITH HIV-1/2 [id number] 09:42:00 Test Item Value Reference Range Interpretation Comments HIV-1 ANTIGEN WITH HIV 1\\T\\2 Nonreactive Nonreactive ANTIBODY (2) (BEAKER) (test code = 2586) VITAMIN D, [id number] 09:41:00 Test Item Value Reference Range Interpretation Comments VITAMIN D 25-OH (BEAKER) (test 24.9 ng/mL 6.6-49.9 code = 2764) Effective 12/17/2016: Reference Range ChangeNew: 6.6-49.9 ng/mL Previous: 13.0-47.8 ng/mLRecommended Vitamin D Target Range: 30.0-40.0 ng/mL CARCINOEMBRYONIC ANTIGEN (CEA)2018-05-26 09:36:00 Test Item Value Reference Range Interpretation Comments CARCINOEMBRYONIC ANTIGEN (BEAKER) 2.7 ng/mL 0.0-5.0 (test code = 685) ALPHA FETOPROTEIN (AFP), TUMOR [id number] 09:36:00 Test Item Value Reference Range Interpretation Comments ALPHA-FETOPROTEIN (BEAKER) (test 15.8 ng/mL <10.0 H code = 1094) HEPATITIS A ANTIBODY, [id number] 09:36:00 Test Item Value Reference Range Interpretation Comments HEPATITIS A IGM ANTIBODY (BEAKER) Nonreactive Nonreactive (test code = 498) URIC [id number] 09:32:00 Test Item Value Reference Range Interpretation Comments URIC ACID (BEAKER) (test code = 5.0 mg/dL 2.6-7.2 773) [id number] 09:32:00 Test Item Value Reference Range Interpretation Comments MAGNESIUM (BEAKER) (test code = 1.9 mg/dL 1.6-2.6 627) [id number] 09:32:00 Test Item Value Reference Range Interpretation Comments PHOSPHORUS (BEAKER) (test code = 3.6 mg/dL 2.3-4.7 604) COMPREHENSIVE METABOLIC [id number] 09:32:00 Test Item Value Reference Range Interpretation [...] NOT APPLICABLE FOR DIALYSIS PATIEN TS. LIPID [id number] 09:32:00 Test Item Value Reference Range Interpretation [...] Borderline 130-159 High 160-189 Very High >=190BILIRUBIN, [id number] 09:32:00 Test Item Value Reference Range Interpretation Comments BILIRUBIN DIRECT (BEAKER) (test 0.4 mg/dL 0.1-0.5 code = 706) GAMMA GLUTAMYL TRANSFERASE (GGT)2018-05-26 09:32:00 Test Item Value Reference Range Interpretation Comments GAMMA GLUTAMYL TRANSFERASE (BEAKER) 59 U/L 9-64 (test code = 364) BLOOD GAS, [id number] 09:27:00 Test Item Value Reference Range Interpretation [...] (BEAKER) (test code = 1819) 100.0 % [id number] 09:17:00 Test Item Value Reference Range Interpretation [...] % 20-55 L (test code = 2590) [id number] 09:14:00 Test Item Value Reference Range Interpretation Comments ETHANOL (BEAKER) (test code = 400) < mg/dL <=10 CBC W/PLT COUNT & AUTO [id number] 09:06:00 Test Item Value Reference Range Interpretation [...] 0-1 PERCENT (BEAKER) (test code = 2801) [id number] 09:02:00 Test Item Value Reference Range Interpretation Comments FIBRINOGEN LEVEL (BEAKER) (test 349 mg/dl 225-434 code = 658) [id number] 09:02:00 Test Item Value Reference Range Interpretation Comments PARTIAL THROMBOPLASTIN TIME 30.6 seconds 22.5-36.0 (BEAKER) (test code = 760) CALCIUM, [id number] 08:50:00 Test Item Value Reference Range Interpretation Comments CALCIUM IONIZED (BEAKER) (test 1.15 mmol/L 1.12-1.27 code = 698) PH, BLOOD (BEAKER) (test code = 7.34 1810) TISSUE [id number] 09:42:00Surgical Pathology Report Case: [id number] Authorizing Provider: Denins Manning MD Collected: 04/07/2018 1033 Ordering Location: [facility] Endoscopy Received: 04/07/2018 1616 Services Pathologist: Sheila Hamilton MD Specimen: Biopsy, Gastric, GASTRIC BX A. STOMACH, RANDOM BIOPSIES: - ANTRAL MUCOSA WITH REACTIVE GASTROPATHY AND MILD CHRONIC INACTIVE GASTRITIS - OXYNTIC MUCOSA WITH NO SIGNIFICANT DIAGNOSTIC ABNORMALITY - NEGATIVE FOR HELICOBACTER PYLORI ORGANISMS BY WARTHIN STARRY STAIN - NEGATIVE FOR INTESTINAL METAPLASIA, DYSPLASIA, MALIGNANCY Signing Pathologist Direct Phone Line: [phone] signed by Sheila Hamilton MD on 04/08/2018 at 9:42 [id number] chronic pancreatitis Gastric biopsy The specimen is received in a formalin-filled container labeled with the patient's information and labeled "gastric biopsy" and consists of multiple fragments of harden-pink soft tissue ranging from 0.1 to 0.3 cm, submitted entirely inA1. CG/ew Performed.The interpretation of this case included the use of immunohistochemistry or special stains. Immunohistochemistry technical testing was performed at [facility],Pathology Laboratory where it was developed and [...] to perform high complexity clinical laboratory testing.POCT-GLUCOSE [id number] 10:20:00 Test Item Value Reference Range Interpretation Comments POC-GLUCOSE METER 185 mg/dL 70-[address] [facility] 6720 (NATE) (test code = LUCITA Kidd [facility] 1538) [address] HEPATOBILIARY IMAGING W/ [id number] 16:11:00Referring: Dr. Najma Underwood REPORT PROCEDURE: HEPATOBILIARY SCAN with [facility] CPT CODE: 12166 INDICATION: Cholelithiasis, worsening abdominal pain PROTOCOL: 5.4 [...] MDReport Verified Date/Time: 03/19/2018 16:11:41 Reading Location: [address] Reading Room HEPATITIS C PCR, [id number] 16:20:00 Test Item Value Reference Range Interpretation Comments HCV RESULT COMPONENT HCV RNA not detected HCV RNA not detected (NATE) (test code = 2699) This test uses a Real-Time Polymerase Chain Reaction (RT-PCR) methodology and was performed using KIKE Ampliprep/KIKE TaqMan HCV test kit version 2.0 ([employer]).Reportable range for this assay is 15 - 100,000,000 IU per mL (1.18 - 8.00 Log IU/mL).HEPATITIS B CORE ANTIBODY, TOTAL 2018-03-11 15:21:00 Test Item Value Reference Range Interpretation Comments HEPATITIS B CORE TOTAL ANTIBODY Reactive Nonreactive A (NATE) (test code = 497) MR, ABDOMEN, [id number] 15:10:00Referring: Dr. Najma Robledo Abdominal VesselsFINAL REPORT [...] MDReport Verified Date/Time: 03/11/2018 15:10:28 Reading Location: [address] Radiology Reading Room TITIS A ANTIBODY, [id number] 14:13:00 Test Item Value Reference Range Interpretation Comments HEPATITIS A IGG ANTIBODY (BEAKER) Reactive Nonreactive A (test code = 2797) HEPATITIS B SURFACE [id number] 14:13:00 Test Item Value Reference Range Interpretation Comments HEPATITIS B SURFACE ANTIBODY < mIU/mL <8.0 (BEAKER) (test code = 647) HEPATITIS B SURFACE [id number] 13:53:00 Test Item Value Reference Range Interpretation Comments HEPATITIS B SURFACE ANTIGEN (2) Nonreactive Nonreactive (BEAKER) (test code = 2585) HEPATIC FUNCTION [id number] 13:39:00 Test Item Value Reference Range Interpretation [...] = 14 U/L 6-55 347) BASIC METABOLIC [id number] 13:39:00 Test Item Value Reference Range Interpretation [...] NOT APPLICABLE FOR DIALYSIS PATIEN TS. PROTHROMBIN [id number] 13:15:00 Test Item Value Reference Range Interpretation Comments PROTIME (BEAKER) (test code = 13.7 seconds 11.7-14.7 759) INR (BEAKER) (test code = 370) 1.0 <=5.9 RECOMMENDED COUMADIN/WARFARIN INR THERAPY RANGESSTANDARD DOSE: 2.0 - 3.0 Includes: PROPHYLAXIS forvenous thrombosis, systemic embolization; TREATMENT for venous thrombosis and/or pulmonary embolus.HIGH RISK: Target INR is 2.5-3.5 for patients with mechanical heart valves.[id number] 13:12:00 Test Item Value Reference Range Interpretation Comments POC-CREATININE 0.7 mg/dL 0.6-1.[address] [facility] 67[address] ([facility]) (test [place] code = 1859) [address] POC-EGFR (AKER) 84 mL/min/1.73M2 (test code = 1860) CBC W/PLT COUNT & AUTO [id number] 13:11:00 Test Item Value Reference Range Interpretation [...] PERCENT (BEAKER) (test code = 2801) URINE [id number] 17:30:00 Test Item Value Reference Range Interpretation [...] glabrat a 10-19,000 col/mL skin floraU/S, ABDOMINAL, [id number] 15:32:00Abdomen limited area? Add comment if clarification [...] MDReport Verified Date/Time: 02/06/2018 15:32:55 Reading Location: [facility] B1 C013Y CT Body Reading Room URINALYSIS W/ [id number] 14:28:00 Test Item Value Reference Range Interpretation [...] = 1585) Moderate SOURCE(BEAKER) (test code = 5955) [id number] 13:38:00 Test Item Value Reference Range Interpretation Comments LIPASE (BEAKER) (test code = 749) 22 U/L 8-78 [id number] 13:38:00 Test Item Value Reference Range Interpretation Comments AMYLASE (BEAKER) (test code = 349) 25 U/L 25-125 BASIC METABOLIC [id number] 13:38:00 Test Item Value Reference Range Interpretation [...] APPLICABLE FOR DIALYSIS PATIEN TS. HEPATIC FUNCTION [id number] 13:38:00 Test Item Value Reference Range Interpretation [...] 6-55 347) CBC W/PLT COUNT & AUTO [id number] 13:09:00 Test Item Value Reference Range Interpretation [...]
[2020-03-20] MEDS ORDERED: CEFTRIAXONE/SWI 1gm 1 GM/10 ML SYR ONE (11:02)
[2020-03-20] MEDS ORDERED: NA CHLORIDE 0.9% 1,000 ML ONE (11:02)
[2020-03-20] MEDS ORDERED: FAMOTIDINE 20 MG/2 ML VIAL IV ONE (11:02)
[2020-03-20 11:10] LABS: Absolute Lymphocytes (CBC) 0.2 K/uL (0.7-4.9); Basophils % 1.6 % (0-1.3); Hematocrit 27.1 % (36.0-45.0); Lymphocytes % 3.4 % (15.3-44.8); MPV 7.6 fL (7.6-11.3); RBC Red Blood Cell Count 3.17 M/uL (3.86-4.86)
[2020-03-20 11:14] LABS: Protime INR 1.14
--- NOTE | 2020-03-20 11:26 | RAD REPORT ---
EXAM DESCRIPTION: RAD - Chest Single View - 03/20/2020 11:15 am CLINICAL HISTORY: COUGH, burning chest sensation COMPARISON: January 2020 TECHNIQUE: AP portable chest image was obtained 03/20/2020 11:15 am . FINDINGS: Prominent interstitial pattern matches comparison. No focal mass or consolidation. No acut e failure or volume overload. Heart and vasculature are normal. No measurable pleural effusion and no pneumothorax. Bilateral kaitlynn ral and shoulder joint degenerative changes are present. No acute bony abnormality seen. No acute aor tic findings suspected. IMPRESSION: No acute cardiopulmonary process. No significant change from comparison study.
[2020-03-20 11:31] LABS: Albumin 3.2 g/dL (3.4-5.0); Bilirubin Direct 1.9 mg/dL (0-0.2); Bilirubin Total 4.1 mg/dL (0.2-1.0); Magnesium 2.6 mg/dL (1.8-2.4); Potassium 4.7 mmol/L (3.5-5.1); Protein, Total 6.5 g/dL (6.4-8.2); Troponin (Emerg Dept Use Only) 0.02 ng/mL (0.0-0.045)
--- NOTE | 2020-03-20 12:03 | RAD REPORT ---
EXAM DESCRIPTION: CT - Abdomen Pelvis Wo Contrast - 03/20/2020 11:45 am CLINICAL HISTORY: ABD PAIN COMPARISON: CT ABD PELVIS W CONTRAST dated 10/13/2013; Chest For Pe Angio dated 05/24/2019 TECHNIQUE: Axial [address] imaging of the abdomen and pelvis was performed without IV contrast. No IV contrast was given because of allergy, abnormal renal function, patient refusal or physician re quest. No oral contrast administered. All CT scans are performed using dose optimization technique as appropriate and may include automated exposure control or mA/KV adjustment according to patient size. FINDINGS: No suspicious findings in the lung bases. Trace pericardial effusion seen. Liver is grossly abnormal as has been previously detailed. There is pronounced macro and micro lobula tion of the liver capsule contour. There is heterogeneity throughout the liver parenchyma. An ill-def ined 3 centimeter low-density mass is present in midline left lobe. There is heterogeneity more prono unced in the superior right lobe. No splenic abnormality. Varices are seen in the upper abdomen. No a cute pancreatic process confirmed. No biliary tree dilatation. The gallbladder is grossly abnormal. Numerous punctate gallstones fill mu ch of the gallbladder lumen. This has been previously seen. The patient now has gallbladder wall calc ification. This can be a finding elevating risk for gallbladder malignancy. No gallbladder wall thick ening or mass seen. No hydronephrosis or suspicious renal mass. No significant adrenal finding. Isodense renal masses an d pyelonephritis cannot be excluded in the absence of IV contrast. Partially filled urinary bladder i s grossly normal. Uterus and ovaries show no suspicious finding. No dilated bowel. Garcia of the right-side colon are mildly thickened. Several small bowel loops show circumferential wall thickening. This may be secondary to the underlying systemic disease. A typhliti s or right-sided colitis would be possible. A large volume of ascites is present. No free air or pneu matosis. No hernia, mass or bulky lymphadenopathy. Fluid retention is present in the subcutaneous fat ty tissues. No suspicious bony findings. IMPRESSION: Cirrhotic liver showing progression from the remote 2014 CT study. Liver parenchyma is m ore heterogeneous. Development of a mass lesion in the liver cannot be excluded on a noncontrast stud y. Patient has developed large volume of ascites with significant fluid retention in subcutaneous fatty tissues. Known extensive cholelithiasis now with prominent gallbladder wall calcification. This can be a risk factor for gallbladder malignancy. No gallbladder mass or wall thickening seen. Wall thickening of the right-side colon and wall thickening of several small bowel loops is probably a secondary response to the systemic disease. Typhlitis or right-sided colitis cannot be excluded.
--- NOTE | 2020-03-20 12:23 | EDPHYS ---
Physician Documentation [facility] Name: Veronika Carrillo Age: 64 yrs Sex: Female : 1955 Arrival Date: 03/20/2020 Time: 08:10 Bed 17 Private MD: AYDEE Physician Fabian Yoon HPI: 03/20 10:50 This 64 yrs old Female presents to ER via Ambulatory with complaints of Sore loren Throat, Abdominal Pain. 10:50 The patient presents with a foreign body sensation in the throat. The patient describes loren throat pain as constant. Onset: The symptoms/episode began/occurred 2 day(s) ago. Severity of symptoms: At their worst the symptoms were mild. Modifying factors: The symptoms are alleviated by nothing, the symptoms are aggravated by nothing. Historical: - Allergies: : Sulfa (Sulfonamide Antibiotics); ss - PMHx: : Cirrhosis; Cyst on pancreas; Diabetes - NIDDM; HEP C; liver cancer; Pancreatitis; ss Rheumatoid Arthritis; - PSHx: : ; hand surgery; ss - Immunization history:: Adult Immunizations up to date. - Social history:: Smoking status: Patient denies any tobacco usage or history of. ROS: 10:50 Constitutional: Negative for fever, chills, and weight loss, Eyes: Negative for injury, loren pain, redness, and discharge, Neck: Negative for injury, pain, and swelling, Cardiovascular: Negative for chest pain, palpitations, and edema, Respiratory: Negative for shortness of breath, cough, wheezing, and pleuritic chest pain, Back: Negative for injury and pain, : Negative for injury, bleeding, discharge, and swelling, Skin: Negative for injury, rash, and discoloration, Neuro: Negative for headache, weakness, numbness, tingling, and seizure, Psych: Negative for depression, anxiety, suicide ideation, homicidal ideation, and hallucinations, Allergy/Immunology: Negative for hives, rash, and allergies, Endocrine: Negative for neck swelling, polydipsia, polyuria, polyphagia, and marked weight changes, Hematologic/Lymphatic: Negative for swollen nodes, abnormal bleeding, and unusual bruising. 10:50 Abdomen/GI: Positive for abdominal pain, nausea, abdominal cramps, abdominal distension. 10:50 MS/extremity: Positive for pain, swelling, tenderness, of the right leg and left leg. Exam: 10:50 Constitutional: This is a well developed, well nourished patient who is awake, alert, loren and in no acute distress. Head/Face: Normocephalic, atraumatic. Eyes: Pupils equal round and reactive to light, extra-ocular motions intact. Lids and lashes normal. Conjunctiva and sclera are non-icteric and not injected. Cornea within normal limits. Periorbital areas with no swelling, redness, or edema. ENT: Nares patent. No nasal discharge, no septal abnormalities noted. Tympanic membranes are normal and external auditory canals are clear. Oropharynx with no redness, swelling, or masses, exudates, or evidence of obstruction, uvula midline. Mucous membranes moist. Neck: Trachea midline, no thyromegaly or masses palpated, and no cervical lymphadenopathy. Supple, full range of motion without nuchal rigidity, or vertebral point tenderness. No Meningismus. Chest/axilla: Normal chest wall appearance and motion. Nontender with no deformity. No lesions are appreciated. Cardiovascular: Regular rate and rhythm with a normal S1 and S2. No gallops, murmurs, or rubs. Normal PMI, no JVD. No pulse deficits. Respiratory: Lungs have equal breath sounds bilaterally, clear to auscultation and percussion. No rales, rhonchi or wheezes noted. No increased work of breathing, no retractions or nasal flaring. Back: No spinal tenderness. No costovertebral tenderness. Full range of motion. Female : Normal external genitalia. Skin: Warm, dry with normal turgor. Normal color with no rashes, no lesions, and no evidence of cellulitis. MS/ Extremity: Pulses equal, no cyanosis. Neurovascular intact. Full, normal range of motion. Neuro: Awake and alert, GCS 15, oriented to person, place, time, and situation. Cranial nerves II-XII grossly intact. Motor strength 5/5 in all extremities. Sensory grossly intact. Cerebellar exam normal. Normal gait. Psych: Awake, alert, with orientation to person, place and time. Behavior, mood, and affect are within normal limits. 10:50 Abdomen/GI: Inspection: distension, Bowel sounds: normal, in all quadrants, Palpation: moderate abdominal tenderness, in the right upper quadrant, left upper quadrant, right lower quadrant and left lower quadrant. 12:22 ECG was reviewed by the Attending Physician. [facility] Vital Signs: 08:29 BP 132 / 53; Pulse 83; Resp 17; Temp 97.8(TE); Pulse Ox 100% on R/A; Weight 77.11 kg ss (R); Height 5 ft. 4 in. (162.56 cm); Pain 6/10; 10:16 BP 156 / 67; Pulse 79; Resp 18; Pulse Ox 100% on R/A; ll1 12:32 BP 130 / 51; Pulse 80; Resp 18; Pulse Ox 100% ; ll1 14:18 BP 149 / 80; Pulse 78; Resp 19; Pulse Ox 100% on R/A; ll1 16:19 BP 136 / 65; Pulse 80; Resp 18; Pulse Ox 100% on R/A; ll1 08:29 Body Mass Index 29.18 (77.11 kg, 162.56 cm) ss MDM: 09:59 Patient medically screened. loren 10:53 Differential diagnosis: gastroesophageal reflux disease, laryngitis, peritonsillar loren abscess pharyngitis, uvulitis, Mesenteric ischemia or infarction, Peptic Ulcer Disease, Pyelonephritis, Ureterolithiasis, urinary tract infection. Data reviewed: vital signs, nurses notes, lab test result(s), EKG, radiologic studies, CT scan, plain films. Data interpreted: civil designer: rate is 79 beats/min, rhythm is regular. Test interpretation: by ED physician or midlevel provider: ECG, plain radiologic studies. Counseling: I had a detailed discussion with the patient and/or guardian regarding: the historical points, exam findings, and any diagnostic results supporting the discharge/admit diagnosis, lab results, radiology results. 03/20 10:38 Order name: Basic Metabolic Panel [facility] 03/20 10:38 Order name: CBC with Diff [facility] 03/20 10:38 Order name: LFT's; Complete Time: 11:36 [facility] 03/20 10:38 Order name: Magnesium; Complete Time: 11:36 [facility] 03/20 10:38 Order name: NT PRO-BNP; Complete Time: 11:36 [facility] 03/20 10:38 Order name: PT-INR; Complete Time: 11:36 [facility] 03/20 10:38 Order name: Troponin (emerg Dept Use Only); Complete Time: 11:36 [facility] 03/20 10:38 Order name: Lipase; Complete Time: 11:36 [facility] 03/20 10:38 Order name: Ptt, Activated; Complete Time: 11:36 [facility] 03/20 10:38 Order name: AMMONIA; Complete Time: 11:36 [facility] 03/20 10:38 Order name: Blood Culture Adult (2) [facility] 03/20 10:38 Order name: Lactate; Complete Time: 12:42 [facility] 03/20 10:38 Order name: XRAY Chest (1 view); Complete Time: 11:36 [facility] 03/20 10:39 Order name: Basic Metabolic Panel; Complete Time: 11:36 [facility] 03/20 11:05 Order name: Type And Screen 03/20 11:43 Order name: Abdomen ; Complete Time: 12:07 [facility] 03/20 12:24 Order name: CREATININE WHOLE BLOOD; Complete Time: 12:39 [facility] 03/20 13:19 Order name: Manual Differential [facility] 03/20 13:40 Order name: SARS-COV-2 RT PCR [facility] 03/20 13:44 Order name: Urine Dipstick--Ancillary (enter results) 03/20 16:13 Order name: Lactate Sepsis 2 HR Follow-up [facility] 03/20 10:38 Order name: EKG; Complete Time: 10:39 [facility] 03/20 10:38 Order name: Cardiac monitoring; Complete Time: 12:31 [facility] 03/20 10:38 Order name: EKG - Nurse/Tech; Complete Time: 12:31 [facility] 03/20 10:38 Order name: IV Saline Lock; Complete Time: 10:43 [facility] 03/20 10:38 Order name: Labs collected and sent; Complete Time: 10:43 [facility] 03/20 10:38 Order name: O2 Per Protocol; Complete Time: 10:43 [facility] 03/20 10:38 Order name: O2 Sat Monitoring; Complete Time: 10:43 [facility] EC:22 Rate is 81 beats/min. Rhythm is regular. QRS [place] is Normal. [place] interval is normal. QRS loren interval is normal. QT interval is normal. No Q waves. T waves are Normal. No ST changes noted. Interpreted by me. Reviewed by me. Administered Medications: 11:23 Drug: NS 0.9% 1000 ml Route: IV; Rate: 75 ml/hr; Site: right antecubital; ll1 16:20 Follow up: Response: No adverse reaction; RASS: Alert and Calm (0); IV Status: ll1 Completed infusion; IV Intake: 300ml 11:24 Drug: Pepcid 20 mg Route: IVP; Site: right antecubital; ll1 12:31 Follow up: Response: No adverse reaction 1 11:24 Drug: Rocephin 1 grams Route: IV; Rate: per protocol; Site: right antecubital; ll1 12:31 Follow up: Response: No adverse reaction; RASS: Alert and Calm (0); IV Status: ll1 Completed infusion; IV Intake: 10ml 12:30 Drug: Flagyl 500 mg Volume: 100 ml; Route: IVPB; Rate: 200 ml/hr; Infused Over: 30 ll1 mins; Site: right antecubital; 16:20 Follow up: Response: No adverse reaction; RASS: Alert and Calm (0); IV Status: ll1 Completed infusion; IV Intake: 100ml 13:05 Drug: Zofran (Ondansetron) 4 mg Route: IVP; Site: right antecubital; 1 16:20 Follow up: Response: No adverse reaction; RASS: Alert and Calm (0) [facility] Disposition: 03/20/20 12:22 Transfer ordered to [facility]. Diagnosis are Abdominal tenderness, Ascites - large volume, Type 2 diabetes mellitus, Unspecified cirrhosis of liver - hepatitis c, liver mass, Left sided colitis with other complication, Cholelithiasis. - Reason for transfer: Higher level of care. - Accepting physician is to [facility]. - Condition is Fair. - Problem is new. - Symptoms have improved. Signatures: Dispatcher [employer] [facility] Fabian Yoon MD MD cha Smirch, Shelby RN RN Braulio Hawthorne RN RN ll1 Corrections: (The following items were deleted from the chart) 11:43 10:40 Abdomen Pelvis W Con+CT.RAD.BRZ ordered. [facility] 12:42 12:22 03/20/2020 12:22 Transfer ordered to [facility]. loren Diagnosis is Abdominal tenderness; Ascites - large volume; Type 2 diabetes mellitus; Unspecified cirrhosis of liver - hepatitis c, liver mass; Left sided colitis with other complication. Reason for transfer: Higher level of care. Accepting physician is to [facility]. Condition is Fair. Problem is new. Symptoms have improved. loren 12:52 10:39 CORONAVIRUS+ ordered. EDMS EDMS 13:11 12:42 03/20/2020 12:22 Transfer ordered to [facility]. loren Diagnosis is Abdominal tenderness; Ascites - large volume; Type 2 diabetes mellitus; Unspecified cirrhosis of liver - hepatitis c, liver mass; Left sided colitis with other complication. Reason for transfer: Higher level of care. Accepting physician is to [facility]. Condition is Fair. Problem is new. Symptoms have improved. loren 16:22 13:11 03/20/2020 12:22 Transfer ordered to [facility]. ll1 Diagnosis is Abdominal tenderness; Ascites - large volume; Type 2 diabetes mellitus; Unspecified cirrhosis of liver - hepatitis c, liver mass; Left sided colitis with other complication; Cholelithiasis. Reason for transfer: Higher level of care. Accepting physician is to [facility]. Condition is Fair. Problem is new. Symptoms have improved. loren
--- NOTE | 2020-03-20 12:23 | ER ---
Nurse's Notes [facility] Name: Veronika Carrillo Age: 64 yrs Sex: Female : 1955 Arrival Date: 03/20/2020 Time: 08:10 Bed 17 Private MD: Diagnosis: Abdominal tenderness;Ascites-large volume;Type 2 diabetes mellitus;Unspecified cirrhosis of liver-hepatitis c, liver mass;Left sided colitis with other complication;Cholelithiasis Presentation: 03/20 08:29 Chief complaint: Patient states: "I have something in my throat and my stomach. It's ss burning and worse when I eat.". Coronavirus screen: Client denies travel out of the [place] in the last 14 days. Ebola Screen: Patient denies exposure to infectious person. Patient denies travel to an Ebola-affected area in the 21 days before illness onset. Initial Sepsis Screen: Does the patient meet any 2 criteria? No. Patient's initial sepsis screen is negative. Does the patient have a suspected source of infection? No. Patient's initial sepsis screen is negative. Risk Assessment: Do you want to hurt yourself or someone else? Patient reports no desire to harm self or others. Onset of symptoms was March 18, 2020. 08:29 Method Of Arrival: Ambulatory ss 08:29 Acuity: ADRIEL 3 ss Historical: - Allergies: 08:31 Sulfa (Sulfonamide Antibiotics); ss - PMHx: 08:31 Cirrhosis; Cyst on pancreas; Diabetes - NIDDM; HEP C; liver cancer; Pancreatitis; ss Rheumatoid Arthritis; - PSHx: 08:31 ; hand surgery; ss - Immunization history:: Adult Immunizations up to date. - Social history:: Smoking status: Patient denies any tobacco usage or history of. Screenin:15 Fall Risk IV access (20 points). Ambulatory Aid- None/Bed Rest/Nurse Assist (0 pts). ll1 Gait- Weak (10 pts.). Total Amanda Fall Scale indicates Low Risk Score (25-44 pts). Fall prevention measures have been instituted. Side Rails Up X 2 Frequent Obs/Assesments occuring As available Patient and Family Educated on Fall Prevention Program and strategies. 10:16 Abuse screen: Denies threats or abuse. Nutritional screening: No deficits noted. ll1 Tuberculosis screening: No symptoms or risk factors identified. Assessment: 10:15 General: Appears uncomfortable, Behavior is calm, cooperative, appropriate for age. ll1 Pain: Complains of pain in left upper quadrant and right upper quadrant Quality of pain is described as aching. Neuro: No deficits noted. Cardiovascular: No deficits noted. Respiratory: Airway is patent Trachea midline Respiratory effort is even, unlabored, Respiratory pattern is regular, symmetrical, Breath sounds are clear bilaterally. GI: Abdomen is round noted to have ascites, Bowel sounds present X 4 quads. Abd is soft Abdomen is tender to palpation X 4 quads. Reports lower abdominal pain, upper abdominal pain, gaseousness. EENT: Throat is clear Reports pain when swallowing. Musculoskeletal: Reports weakness in generalized. 11:15 Reassessment: No changes from previously documented assessment. Patient and/or family ll1 updated on plan of care and expected duration. Pain level reassessed. Patient is alert, oriented x 3, equal unlabored respirations, skin warm/dry/pink. 12:15 Reassessment: No changes from previously documented assessment. Patient and/or family ll1 updated on plan of care and expected duration. Pain level reassessed. Patient is alert, oriented x 3, equal unlabored respirations, skin warm/dry/pink. 13:15 Reassessment: No changes from previously documented assessment. Patient and/or family ll1 updated on plan of care and expected duration. Pain level reassessed. Patient is alert, oriented x 3, equal unlabored respirations, skin warm/dry/pink. 14:15 Reassessment: No changes from previously documented assessment. Patient and/or family ll1 updated on plan of care and expected duration. Pain level reassessed. 15:15 Reassessment: No changes from previously documented assessment. Patient and/or family ll1 updated on plan of care and expected duration. Pain level reassessed. 16:15 Reassessment: No changes from previously documented assessment. Patient and/or family ll1 updated on plan of care and expected duration. Pain level reassessed. Patient is alert, oriented x 3, equal unlabored respirations, skin warm/dry/pink. Vital Signs: 08:29 BP 132 / 53; Pulse 83; Resp 17; Temp 97.8(TE); Pulse Ox 100% on R/A; Weight 77.11 kg ss (R); Height 5 ft. 4 in. (162.56 cm); Pain 6/10; 10:16 BP 156 / 67; Pulse 79; Resp 18; Pulse Ox 100% on R/A; ll1 12:32 BP 130 / 51; Pulse 80; Resp 18; Pulse Ox 100% ; ll1 14:18 BP 149 / 80; Pulse 78; Resp 19; Pulse Ox 100% on R/A; ll1 16:19 BP 136 / 65; Pulse 80; Resp 18; Pulse Ox 100% on R/A; ll1 08:29 Body Mass Index 29.18 (77.11 kg, 162.56 cm) ED Course: 08:10 Patient arrived in ED. ds1 08:30 Triage completed. 08:31 Arm band placed on right wrist. 09:59 Fabian Yoon MD is Attending Physician. [facility] 10:15 Braulio Maxwell RN is Primary Nurse. ll1 10:16 Patient placed in an exam room, on a stretcher. ll1 10:16 Patient has correct armband on for positive identification. Bed in low position. Call ll1 light in reach. Side rails up X2. Pulse ox on. NIBP on. 10:50 Inserted saline lock: 20 gauge in right antecubital area, using aseptic technique. ll1 Blood collected. 11:12 XRAY Chest (1 view) In Process Unspecified. EDMS 11:43 Abdomen In Process Unspecified. EDMS 15:01 No provider procedures requiring assistance completed. Patient transferred, IV remains ll1 in place. Administered Medications: 11:23 Drug: NS 0.9% 1000 ml Route: IV; Rate: 75 ml/hr; Site: right antecubital; 1 16:20 Follow up: Response: No adverse reaction; RASS: Alert and Calm (0); IV Status: ll1 Completed infusion; IV Intake: 300ml 11:24 Drug: Pepcid 20 mg Route: IVP; Site: right antecubital; 1 12:31 Follow up: Response: No adverse reaction 1 11:24 Drug: Rocephin 1 grams Route: IV; Rate: per protocol; Site: right antecubital; 1 12:31 Follow up: Response: No adverse reaction; RASS: Alert and Calm (0); IV Status: ll1 Completed infusion; IV Intake: 10ml 12:30 Drug: Flagyl 500 mg Volume: 100 ml; Route: IVPB; Rate: 200 ml/hr; Infused Over: 30 ll1 mins; Site: right antecubital; 16:20 Follow up: Response: No adverse reaction; RASS: Alert and Calm (0); IV Status: ll1 Completed infusion; IV Intake: 100ml 13:05 Drug: Zofran (Ondansetron) 4 mg Route: IVP; Site: right antecubital; ll1 16:20 Follow up: Response: No adverse reaction; RASS: Alert and Calm (0) ll1 Intake: 12:31 IV: 10ml; Total: 10ml. ll1 16:20 IV: 100ml; Total: 110ml. ll1 16:20 IV: 300ml; Total: 410ml. ll1 Outcome: 12:22 ER care complete, transfer ordered by MD. pimentel 15:01 Transferred by ground EMS to [facility], Transfer form completed. ll1 X-rays sent w/ patient. 15:01 Condition: stable 15:01 Discharge instructions given to patient, Instructed on the need for transfer. 16:22 Patient left the ED. ll1 Signatures: Dispatcher [employer] EDFabian Miranda MD MD cha Sanford, Demi ds1 Jeanette Mir, Braulio Alston RN, RN RN ll1
[2020-03-20] MEDS ORDERED: METRONIDAZOLE 500mg IVPB 500 MG/100 ML BAG IV ONE (12:38)
[2020-03-20 13:19] LABS: Anisocytosis 1+; Blood Morphology Comment NOTED (NOT SEEN); Platelet Estimate DECR
[2020-03-20 13:47] LABS: Urine Blood NEGATIVE (NEG); Urine Glucose TRACE (NEG); Urine Protein NEGATIVE (NEG); Urine Specific Gravity 1.025 (1.005-1.030)
[2020-03-20] MEDS ORDERED: ONDANSETRON 4 MG/2 ML VIAL ONE (14:42)
[2020-03-20 16:33] VITALS: TEMP 97.8; O2SAT 100
[2020-03-20 16:38] VITALS: BP 136/65
--- NOTE | 2020-03-21 16:12 | EKG ---
Test Date: 2020-03-20 Test Time: 11:58:09 Inspector Fibrous Wallboard: STUART MEASUREMENT RESULTS: Intervals: Rate: 81 OR: 168 QRSD: 94 QT: 412 QTc: 478 [place]: P: 77 OR: 168 QRS: 87 T: 74 INTERPRETIVE STATEMENTS: Normal sinus rhythm Anterior infarct, age undetermined Abnormal ECG Compared to ECG 01/30/2020 10:18:33 No significant changes Electronically Signed On 03-21-20 16:08:51 OPERATIONS AND MAINTENANCE TECHNICAN by Abdirizak Reyes
== END 2020-03-20 16:22 | disposition short-term general hospital (02) ==
LOC: ER 08:07
DX: R18.8 Other ascites (principal); K74.60 Unspecified cirrhosis of liver; K51.518 Left sided colitis with other complication; K80.20 Calculus of gallbladder without cholecystitis without obstruction; B19.20 Unspecified viral hepatitis C without hepatic coma; R16.0 Hepatomegaly, not elsewhere classified; Z20.822 Contact with and (suspected) exposure to COVID-19; Z85.05 Personal history of malignant neoplasm of liver; Z88.2 Allergy status to sulfonamides
CPT/HCPCS: 93005; 87040 ×2; 85025; 80048; 36415; 82140; 86900; 83735; 86850; 85610; 82565; 86901; 80076; 83605 ×2; 85730; 81003; 84484; 83690; 83880; 74176; 71045; U0003; J0696; J7030; J2405; 96365; 96366; 96375; 99285